=== PATIENT | female | born 1975 | race Caucasian/White ===

== ENCOUNTER 2019-12-24 08:58 | Outpatient (REF) | payer MEDICARE, MEDICAID, SELFPAY ==
[2019-12-24 10:27] LABS: Alanine Aminotransferase 17 U/L (0-31); Albumin Level 4.3 g/dL (3.5-5.0); Alkaline Phosphatase 65 U/L (39-117); Anion Gap 12 (12-20); Aspartate Amino Transferase 21 U/L (5-31); Bilirubin Total 0.5 mg/dL (0.0-1.0); Blood Urea Nitrogen 20 mg/dL (9-16); Carbon Dioxide 23 mmol/L (22-29); Chloride 108 mmol/L (96-108); Cholesterol 127 mg/dL; Estimated Glomerular Filt Rate > 60; Glucose Fasting 81 mg/dL (60-99); HDL Cholesterol 47 mg/dL; LDL Cholesterol Calculated 56 mg/dl; Sodium 139 mmol/L (135-145); Total Protein 7.5 g/dL (6.5-8.0); Triglycerides 120 mg/dL
[2019-12-24 10:46] LABS: Reflex LDLD? No
[2019-12-24 10:58] LABS: Creatinine Urine 165.03 mg/dL; Microalbum/Creatinine Ratio Ur 4.2 ug/mg cr
== END 2019-12-24 08:59 | disposition home or self-care (01) ==
LOC: HO.LAB 08:58
PROVIDERS: PCP Internal Medicine; Visit Provider Nurse Practitioner Gerontology
DX: E53.8 Deficiency of other specified B group vitamins (principal)
CPT/HCPCS: 80053; 80061; 82043

== ENCOUNTER 2020-01-18 09:59 | Outpatient (REF) | payer MEDICARE, MEDICAID, SELFPAY ==
[2020-01-18 11:01] LABS: Estimated Average Glucose 103 mg/dL; Hemoglobin A1c % 5.2 %
== END 2020-01-18 10:00 | disposition home or self-care (01) ==
LOC: HO.LAB 09:59
PROVIDERS: PCP Internal Medicine; Visit Provider Nurse Practitioner Gerontology
DX: E11.42 Type 2 diabetes mellitus with diabetic polyneuropathy (principal); K91.2 Postsurgical malabsorption, not elsewhere classified
CPT/HCPCS: 83036

== ENCOUNTER → 2020-01-20 13:48 | Outpatient (BNVA) | payer MEDICARE, MEDICAID, SELFPAY | PROVIDERS: PCP Internal Medicine; Visit Provider Anesthesiology | DX: M47.812 Spondylosis without myelopathy or radiculopathy, cervical region (principal); G89.4 Chronic pain syndrome; M54.81 Occipital neuralgia | CPT/HCPCS: 99202 ==

== ENCOUNTER 2020-02-02 09:28 | Outpatient (REF) | payer MEDICARE, MEDICAID, SELFPAY ==
--- NOTE | 2020-02-02 09:26 | MR_ITS ---
EXAMINATION: MR CERVICAL SPINE WITHOUT CONTRAST CLINICAL INFORMATION: Left upper extremity radiculopathy. Left leg pain. Neck pain. COMPARISON: X-ray cervical spine from 05/08/2019. TECHNIQUE: MRI of the cervical spine was obtained using routine sequences without contrast. FINDINGS: VERTEBRAL BODIES AND PARASPINAL SOFT TISSUES: There is a mild reversal of the normal cervical lordosis. The marrow signal is fairly homogeneous. Anterior endplate spurring is most notable at the C5-C6 level. No compression fractures or subluxations identified. No marrow or soft tissue edema is visible. The imaged lung apices are grossly clear. The paraspinal soft tissues are unremarkable. CERVICOMEDULLARY JUNCTION AND VISUALIZED POSTERIOR FOSSA: The craniovertebral junction and imaged portions of the brain parenchyma appear normal. No cord signal abnormality or syrinx is seen. SPINAL LEVELS: C2-C3: No disc pathology. No central canal stenosis or foraminal narrowing. C3-C4: Well-hydrated normal appearance of the disc without central canal stenosis or foraminal encroachment. C4-C5: Well-hydrated disc. No central canal stenosis or foraminal narrowing. C5-C6: Mild degenerative disc bulge and shallow left paracentral disc protrusion with mild endplate spurring. No central canal stenosis or foraminal encroachment. C6-C7: No disc pathology evident. C7-T1: Well-hydrated normal appearance of the disc. MR/MR cervical spine wo con IMPRESSION: Mild spondylitic changes at C5-C6 with a small left paracentral disc protrusion and endplate spurring. No central canal stenosis or foraminal narrowing. Mild reversal of the normal cervical lordosis.
== END 2020-02-02 09:29 | disposition home or self-care (01) ==
LOC: HO.MRI 09:28
PROVIDERS: Visit Provider Anesthesiology
DX: M47.812 Spondylosis without myelopathy or radiculopathy, cervical region (principal); M54.81 Occipital neuralgia
CPT/HCPCS: 72141

== ENCOUNTER 2020-02-03 15:56 | Emergency (ER) | payer MEDICARE, MEDICAID, SELFPAY ==
[2020-02-03 16:04] VITALS: BP 134/68; PULSE 77; RESP 16; TEMP 36.4; O2SAT 99; BMI 34.3
--- NOTE | 2020-02-03 17:21 | ECG_ITS ---
Test Reason : BACK PAIN Blood Pressure : / mmHG Vent. Rate : 060 BPM Atrial Rate : 060 BPM P-R Int : 158 ms QRS Dur : 088 ms QT Int : 410 ms P-R-T Axes : 037 024 026 degrees QTc Int : 410 ms Normal sinus rhythm Normal ECG When compared with ECG of 01-DEC-2019 11:17, No significant change was found Referred By: Domingo Rapp Electronically Signed By:SARAH MELISSA MD
--- NOTE | 2020-02-03 17:30 | XR_ITS ---
EXAMINATION: XR CHEST CLINICAL INFORMATION: Chest pain COMPARISON: 12/01/2019 TECHNIQUE: Frontal view of the chest was obtained. FINDINGS: Lungs are well-inflated and clear. Trachea is midline in position. No interstitial disease, consolidation or mass. No pleural effusion or pneumothorax. Cardiac silhouette and pulmonary vessels are normal in size. The mediastinum and terrie have normal contour. The visualized bones, and upper abdomen, are unremarkable. XR/XR chest 1V IMPRESSION: No acute cardiopulmonary abnormality.
[2020-02-03 17:36] VITALS: BP 110/71; PULSE 68; RESP 14; O2SAT 99
[2020-02-03 17:45] LABS: MANUAL DIFF FLAG NO
[2020-02-03 17:48] LABS: Appearance Urine CLEAR; Color Urine YELLOW; Glucose Urine UA NEG (NEG); Leukocyte Esterase Urine NEG (NEG); Nitrite Urine NEG (NEG); Specific Gravity - Urine 1.025 (1.005-1.025); Urine Blood NEG (NEG); Urine Ketones NEG (NEG); Urine Protein NEG (NEG-TRACE)
[2020-02-03 17:49] LABS: Basophils Absolute Auto 0.1 X10*3/uL (0.0-0.2); Basophils Percent Auto 0.5 % (0-2); Eosinophils Absolute Auto 0.2 X10*3/uL (0.0-0.4); Hematocrit 33.9 % (37-47); Hemoglobin 10.7 g/dl (12.0-16.0); Imm Gran Abs Auto 0.03 X10*3/uL (0.00-0.03); Imm Gran Pct Auto 0.3 % (0.0-0.4); Lymphocytes Absolute Auto 2.4 X10*3/uL (1.2-4.9); Lymphocytes Percent Auto 24.2 % (20-40); Mean Corpuscular HGB Conc 31.6 g/dl (31.0-35.0); Mean Corpuscular Hemoglobin 27.2 pg (27.0-33.0); Mean Corpuscular Volume 86.3 fL (80-98); Mean Platelet Volume 10.6 fL (9.4-12.3); Monocytes Absolute Auto 0.9 X10*3/uL (0.1-1.2); Neutrophils Absolute Auto 6.4 X10*3/uL (2.0-8.3); Platelet Count 290 X10*3/uL (160-400); Red Blood Count 3.93 X10*6/uL (4.20-5.50); Red Cell Distribution Width 13.2 % (11.0-16.0)
[2020-02-03 17:50] LABS: UPreg QC Valid YES; Urine Pregnancy NEGATIVE (NEGATIVE)
[2020-02-03 17:56] LABS: Bacteria Urine TRACE /LPF; RBC Urine 0 /HPF (0); Squamous Epithelial Cell Urine 1+ /LPF; WBC Urine 0 /HPF (0-4)
[2020-02-03] MEDS: Ketorolac Tromethamine 30 MG/ML VIAL IVPUSH (18:09)
[2020-02-03 18:19] LABS: Alanine Aminotransferase 14 U/L (0-31); Albumin Level 4.1 g/dL (3.5-5.0); Alkaline Phosphatase 57 U/L (39-117); Anion Gap 12 (12-20); Aspartate Amino Transferase 21 U/L (5-31); Bilirubin Total 0.2 mg/dL (0.0-1.0); Blood Urea Nitrogen 19 mg/dL (9-16); Calcium 8.7 mg/dL (8.4-10.2); Carbon Dioxide 20 mmol/L (22-29); Chloride 108 mmol/L (96-108); Creatinine Clr Calc Pharmacy 72.1; Estimated Glomerular Filt Rate > 60; Glucose Random 84 mg/dL (60-115); Potassium 4.2 mmol/l (3.3-5.1); Sodium 136 mmol/L (135-145); Total Protein 7.2 g/dL (6.5-8.0)
[2020-02-03 18:22] LABS: Troponin-I High Sensitivity < 3.5 ng/L (<3.5-17.0)
--- NOTE | 2020-02-03 19:19 | ED_ITS ---
HPI - Chest Pain General Chief Complaint: Back Pain/Injury Stated Complaint: side pain Time Seen by Provider: 02/03/20 17:19 Source: patient Mode of arrival: ambulatory Limitations: no limitations History of Present Illness HPI narrative: 44-year-old female with past medical history significant for diabetes, dyslipidemia, chronic pain syndrome come for B12 deficiency spondylosis of the cervical spine without myelopathy presents ambulatory id triage with complaint of left-sided anterior chest wall pain does been present for past couple days. States she does not recall any obvious injury but chest hurts to palpation and movement of the breast. States sometimes if she lifts of breast pain will go to the back of her chest. She denies any cough, URI symptoms, shortness of breath. No abdominal pain, nausea vomiting or diarrhea. No fever. No recent travel or sick contacts MD complaint: chest discomfort Onset (ago): day(s) Timing of current episode: episodic Prior episodes: Yes Onset: other (movement ) Pain location: left chest Pain radiation: back Severity: mild Quality: aching Relieving factors: other (Resting in no palpation) Exacerbating factors: nothing Context: recent illness Treatment prior to arrival: none Risk Factors Coronary artery disease risk factors: diabetes and hyperlipidemia Thoracic aortic dissection risk factors: none Related Data On Oral Contraceptives: No Home Medications Medication Instructions Recorded Confirmed calcium citrate 315 mg-vitamin D3 1 tab PO DAILY 01/01/20 01/01/20 5 mcg (200 unit) tablet cetirizine 10 mg capsule 10 mg PO DAILY 01/01/20 01/01/20 linaclotide 290 mcg capsule 290 mcg PO DAILY 01/01/20 01/01/20 simethicone 125 mg capsule 125 mg PO BID-QID PRN 01/01/20 01/01/20 topiramate 100 mg tablet 100 mg PO DAILY 01/01/20 01/01/20 Previous Rx's Medication Instructions Recorded acarbose 100 mg tablet 100 mg PO TID #90 tab 01/01/20 alcohol swabs 1 pad TOPICAL TID 30 Days #100 ea 01/01/20 blood sugar diagnostic #100 ea 01/01/20 lancets 28 gauge #100 ea 01/01/20 rosuvastatin 5 mg tablet 5 mg PO DAILY #30 tab 01/01/20 cyanocobalamin (vitamin B-12) 500 500 mcg SUBLINGUAL DAILY 30 Days 01/03/20 mcg sublingual tablet #30 tab tizanidine 4 mg tablet 4 mg PO TID PRN #90 tab 01/21/20 cyclobenzaprine 5 mg PO TID PRN #20 tab 02/03/20 naproxen 500 mg PO BID PRN #14 tab 02/03/20 Allergies Allergy/AdvReac Type Severity Reaction Status Date / Time lisinopril [LISINOPRIL] Allergy Severe ANAPYHLAXIS, Verified 02/03/20 18:09 swelling metformin [METFORMIN] Allergy Severe ANAPHYLAXIS, Verified 02/03/20 18:09 diarrhea sumatriptan [From IMITREX] Allergy Severe ANAPHYLAXIS, Verified 02/03/20 18:09 sedation Review of Systems Review of Systems: Constitutional: No Weight loss, No Fever, No Chills, No Night Sweats, No Fatigue, No Malaise ENT/Mouth: No Hearing loss, No Ear Pain, No Nasal Congestion, No Sinus Pain, No Hoarseness, No sore throat, No Rhinorrhea, No Swallowing Difficulty Eyes: No Eye Pain, No Swelling, No Redness, No Foreign Body, No Discharge, No Vision Changes Cardiovascular: + Chest Pain, No SOB, No Dyspnea on Exertion, No Orthopnea, No Edema, No Palpitations Respiratory: No Cough, No Sputum, No Wheezing, No Smoke Exposure, No Dyspnea Gastrointestinal: No Nausea, No Vomiting, No Diarrhea, No Constipation, No abdominal Pain, No Hematochezia, No Melena Genitourinary: no irregular bleeding, No Dysuria, No Urinary Frequency, No Hematuria, No Urinary Incontinence, No Urgency, No Flank Pain, No Urinary Flow Changes, No Hesitancy Musculoskeletal: No joint pain, No Myalgias, No Joint Swelling Skin: No Skin Lesions, No rash Neuro: No Weakness, No Numbness, No Paresthesias, No Loss of Consciousness, No Dizziness, No Headache Psych: No Anxiety/Panic Heme/Lymph: No Bruising, No Bleeding,No Lymphadenopathy Endocrine: No Polyuria, No Polydipsia, No Temperature Intolerance Yes all other systems are reviewed and are negative [facility] Past Medical History Attestation statement: The following information was validated with the patient. 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 Upper abdominal pain Surgical History History of esophagogastroduodenoscopy (EGD) History of umbilical hernia Hx of bilateral breast reduction surgery Hx of section Hx of cholecystectomy Hx of lithotripsy Family History Family History Father Liver cancer Hypertension Diabetes mellitus Mother Hypercholesterolemia Breast cancer Asthma Social History Social History (Updated 01/01/20 @ 13:33 by ANNE MARIE Chavarria) Household Members: None Smoking Status: Never smoker Physical Exam Vital Signs: Vital Signs: Last Vital Signs Temp 97.5 F 02/03/20 16:04 Pulse 68 02/03/20 17:36 Resp 14 02/03/20 17:36 BP 110/71 02/03/20 17:36 Pulse Ox 99 02/03/20 17:36 Body Mass Index 34.3 Reviewed Const: General: cooperative and healthy appearing; No acute distress or intoxicated appearing Nutritional Appearance: average body habitus Orientation/consciousness: patient oriented x3 HENMT: Head: Yes normal to inspection Ears: hearing grossly normal bilaterally Eyes: General: appearance normal, both eyes and all related structures Visual Penny: normal visual penny by confrontation Neck: Neck: Yes normal visual inspection and No tender Thyroid: Thyroid normal Chest: Chest palpation & inspection: normal inspection of the chest Chest/axillae images: 1. RN Fe present for four h agent No palpable mass Palpable tender palpation just inferior to the breast and this lateral to the breast angle at the sternum. No rash noted. Resp: Effort & Inspection: normal respiratory effort Cardio: Jugular venous distension: no JVD GI: Inspection: Yes normal to inspection Percussion: Yes normal to percussion Auscultation: normal bowel sounds : General: Yes no CVA tenderness Back/Spine/Pelvis: Back: no CVA tenderness Skin: General skin exam: no rashes or lesions noted Neuro: General: patient oriented x3 Extrem: General: Yes normal to inspection Course Course Course Narrative: Heart score 1, perc negative. AP consistent with musculoskeletal reproducible anterior chest wall pain. Workup essentially unremarkable. Will discharge home with short course muscle relaxants and NSAIDs. Patient otherwise well nontoxic appearing. Has remained stable during the course of the ED. MDM - Chest Pain Lab Data Result diagrams: 02/03/20 17:39 02/03/20 17:39 Labs: Lab Results 02/03/20 02/03/20 02/03/20 Range/Units 17:39 17:39 17:39 WBC 10.0 (4.8-10.8) X10*3/uL RBC 3.93 L (4.20-5.50) X10*6/uL Hgb 10.7 L (12.0-16.0) g/dl Hct 33.9 L (37-47) % MCV 86.3 (80-98) fL MCH 27.2 (27.0-33.0) pg MCHC 31.6 (31.0-35.0) g/dl RDW 13.2 (11.0-16.0) % Plt Count 290 (160-400) X10*3/uL MPV 10.6 (9.4-12.3) fL Immature Gran % (Auto) 0.3 (0.0-0.4) % Neut % (Auto) 64.0 (45-73) % Lymph % (Auto) 24.2 (20-40) % [place] % (Auto) 9.0 (2-11) % Eos % (Auto) 2.0 (0-4) % Baso % (Auto) 0.5 (0-2) % Lymph # (Auto) 2.4 (1.2-4.9) X10*3/uL [place] # (Auto) 0.9 (0.1-1.2) X10*3/uL Eos # (Auto) 0.2 (0.0-0.4) X10*3/uL Baso # (Auto) 0.1 (0.0-0.2) X10*3/uL Abs Immat Gran (auto) 0.03 (0.00-0.03) X10*3/uL Absolute Neuts (auto) 6.4 (2.0-8.3) X10*3/uL Absolute Nucleated RBC 0.000 (0.0-0.012) X10*3/uL Nucleated RBC % (auto) 0.0 (0.0-0.2) /100WBC Sodium 136 (135-145) mmol/L Potassium 4.2 (3.3-5.1) mmol/l Chloride 108 (96-108) mmol/L Carbon Dioxide 20 L (22-29) mmol/L Anion Gap 12 (12-20) BUN 19 H (9-16) mg/dL Creatinine 0.94 (0.5-1.4) mg/dL Estim Creat Clear Calc 72.1 Estimated GFR > 60 Random Glucose 84 (60-115) mg/dL Calcium 8.7 (8.4-10.2) mg/dL Total Bilirubin 0.2 (0.0-1.0) mg/dL AST 21 (5-31) U/L ALT 14 (0-31) U/L Alkaline Phosphatase 57 (39-117) U/L Troponin I High Sens < 3.5 (<3.5-17.0) ng/L Total Protein 7.2 (6.5-8.0) g/dL Albumin 4.1 (3.5-5.0) g/dL Urine Color Urine Appearance Urine pH (5.0-8.0) Ur Specific [place] (1.005-1.025) Urine Protein (NEG-TRACE) MG/DL Urine Glucose (UA) (NEG) MG/DL Urine Ketones (NEG) MG/DL Urine Blood (NEG) Urine Nitrite (NEG) Ur Leukocyte Esterase (NEG) Urine RBC (0) /HPF Urine WBC (0-4) /HPF Ur Squamous Epith Cells /LPF Urine Bacteria /LPF Urine Test (NEGATIVE) 02/03/20 Range/Units 17:39 WBC (4.8-10.8) X10*3/uL RBC (4.20-5.50) X10*6/uL Hgb (12.0-16.0) g/dl Hct (37-47) % MCV (80-98) fL MCH (27.0-33.0) pg MCHC (31.0-35.0) g/dl RDW (11.0-16.0) % Plt Count (160-400) X10*3/uL MPV (9.4-12.3) fL Immature Gran % (Auto) (0.0-0.4) % Neut % (Auto) (45-73) % Lymph % (Auto) (20-40) % [place] % (Auto) (2-11) % Eos % (Auto) (0-4) % Baso % (Auto) (0-2) % Lymph # (Auto) (1.2-4.9) X10*3/uL [place] # (Auto) (0.1-1.2) X10*3/uL Eos # (Auto) (0.0-0.4) X10*3/uL Baso # (Auto) (0.0-0.2) X10*3/uL Abs Immat Gran (auto) (0.00-0.03) X10*3/uL Absolute Neuts (auto) (2.0-8.3) X10*3/uL Absolute Nucleated RBC (0.0-0.012) X10*3/uL Nucleated RBC % (auto) (0.0-0.2) /100WBC Sodium (135-145) mmol/L Potassium (3.3-5.1) mmol/l Chloride (96-108) mmol/L Carbon Dioxide (22-29) mmol/L Anion Gap (12-20) BUN (9-16) mg/dL Creatinine (0.5-1.4) mg/dL Estim Creat Clear Calc Estimated GFR Random Glucose (60-115) mg/dL Calcium (8.4-10.2) mg/dL Total Bilirubin (0.0-1.0) mg/dL AST (5-31) U/L ALT (0-31) U/L Alkaline Phosphatase (39-117) U/L Troponin I High Sens (<3.5-17.0) ng/L Total Protein (6.5-8.0) g/dL Albumin (3.5-5.0) g/dL Urine Color YELLOW Urine Appearance CLEAR Urine pH 7.0 (5.0-8.0) Ur Specific [place] 1.025 (1.005-1.025) Urine Protein NEG (NEG-TRACE) MG/DL Urine Glucose (UA) NEG (NEG) MG/DL Urine Ketones NEG (NEG) MG/DL Urine Blood NEG (NEG) Urine Nitrite NEG (NEG) Ur Leukocyte Esterase NEG (NEG) Urine RBC 0 (0) /HPF Urine WBC 0 (0-4) /HPF Ur Squamous Epith Cells 1+ /LPF Urine Bacteria TRACE /LPF Urine Test NEGATIVE (NEGATIVE) Scores Heart Score History: -0- slightly suspicious ECG: -0- normal Age: -0- < or = 45 Risk factory: -1- 1 or 2 risk factors Troponin: -0- < or = normal limit Score: 1 Risk: 1.7% Discharge Plan Discharge Clinical Impression: Acute costochondritis Patient Disposition: Home, Self-Care Instructions: Costochondritis (ED) Prescriptions: New cyclobenzaprine 10 mg tablet 5 mg PO TID PRN (Reason: muscle spasm) Qty: 20 RF: 0 naproxen 500 mg tablet 500 mg PO BID PRN (Reason: pain) Qty: 14 RF: 0 No Action cyanocobalamin (vitamin B-12) 500 mcg tablet, sublingual 500 mcg sublingual DAILY 30 Days Qty: 30 RF: 11 tizanidine 4 mg tablet 4 mg PO TID PRN (Reason: muscle spasticity) Qty: 90 RF: 3 topiramate [Topamax] 100 mg tablet 100 mg PO DAILY RF: 0 Linzess 290 mcg capsule 290 mcg PO DAILY RF: 0 simethicone [Gas Relief (simethicone)] 125 mg capsule 125 mg PO BID-QID PRNRF: 0 calcium citrate-vitamin D3 [Calcium Citrate + D] 315 mg-5 mcg (200 unit) tablet 1 tab PO DAILY RF: 0 Zyrtec 10 mg capsule 10 mg PO DAILY RF: 0 acarbose 100 mg tablet 100 mg PO TID Qty: 90 RF: 12 (DME) FreeStyle Lite Strips Strip See Rx Instructions .ROUTE .MEDSUPPLY Qty: 100 RF: 12 rosuvastatin [Crestor] 5 mg tablet 5 mg PO DAILY Qty: 30 RF: 12 (DME) lancets [FreeStyle Lancets] 28 gauge misc See Rx Instructions .ROUTE .MEDSUPPLY Qty: 100 RF: 12 alcohol swabs [Alcohol Pads] Pads, Medicated 1 pad topical TID 30 Days Qty: 100 RF: 12 Referrals: Juve Crawford MD [Primary Care Provider] - 1 week Interventions: ED Discharge Assessment Last Done: 02/03/20 19:31 Discharge Date/Time: 02/03/20 19:33
== END 2020-02-03 19:33 | disposition home or self-care (01) ==
PROVIDERS: Nurse Practitioner Primary Care; Emergency Provider Emergency Medicine; PCP Internal Medicine
DX: M94.0 Chondrocostal junction syndrome [Tietze] (principal); M54.5 Low back pain; M54.2 Cervicalgia; Z79.899 Other long term (current) drug therapy
CPT/HCPCS: 36415; 71045; 80053; 81001; 81025; 84484; 85025; 93005; 96374; 99283; 99284; J1885

== ENCOUNTER → 2020-02-29 09:59 | Outpatient (BNVA) | payer MEDICARE, MEDICAID, SELFPAY | PROVIDERS: PCP Internal Medicine; Referring Provider Internal Medicine; Visit Provider Nurse Practitioner | DX: Z13.89 Encounter for screening for other disorder (principal) | CPT/HCPCS: Q3014 ==

== ENCOUNTER 2020-03-15 05:50 | Outpatient (REF) | payer MEDICARE, MEDICAID, SELFPAY | END 2020-03-15 05:51 | disposition home or self-care (01) | LOC: HO.RADIR 05:50 | PROVIDERS: Visit Provider Anesthesiology | DX: M47.812 Spondylosis without myelopathy or radiculopathy, cervical region (principal); G89.4 Chronic pain syndrome; M54.81 Occipital neuralgia | CPT/HCPCS: Q3014 ==

== ENCOUNTER 2020-03-22 12:10 | Outpatient (REF) | payer MEDICARE, MEDICAID, SELFPAY | END 2020-03-22 12:11 | disposition home or self-care (01) | LOC: HO.MAMMO 12:10 | PROVIDERS: Visit Provider Internal Medicine | DX: Z13.89 Encounter for screening for other disorder (principal) ==

== ENCOUNTER 2020-03-28 07:54 | Outpatient (REF) | payer MEDICARE, MEDICAID, SELFPAY ==
--- NOTE | 2020-03-28 07:58 | MM_ITS ---
EXAMINATION: MM SCREENING DIGITAL BREAST TOMOSYNTHESIS, BILATERAL CLINICAL INFORMATION: Screening. Asymptomatic. The lifetime risk of breast cancer based on the Tyrer-Cuzick Model is 13%. COMPARISON: Mammography: 01/13/2019, 12/26/2017, 08/24/2016 TECHNIQUE: Digital breast tomosynthesis is performed in both the craniocaudal and mediolateral oblique views along with computer-aided detection (CAD). Synthesized 2D images are generated from the tomosynthesis. FINDINGS: There are scattered areas of fibroglandular density (ACR BI-RADS breast composition Category b). There are no significant masses, abnormal calcifications, or other abnormalities. Parenchymal pattern is similar to prior studies. The axilla and skin contours are unremarkable. MM/MM tomosynthesis screening BI IMPRESSION: There are no significant changes from prior study. ASSESSMENT: BI-RADS 1: Negative RECOMMENDATION: Routine annual mammography screening. This patient's information was entered into a reminder system with a target due date for their next mammogram.
== END 2020-03-28 07:55 | disposition home or self-care (01) ==
LOC: HO.MAMMO 07:54
PROVIDERS: PCP Internal Medicine; Visit Provider Internal Medicine
DX: Z12.31 Encounter for screening mammogram for malignant neoplasm of breast (principal)
CPT/HCPCS: 77063; 77067

== ENCOUNTER 2020-03-29 10:00 | Outpatient (RCR) | payer MEDICARE, MEDICAID, SELFPAY ==
--- NOTE | 2020-01-29 15:20 | MHC.PT.EP ---
[facility] [place] Office [place] [facility] [place] Office [address] Nuria Dueñas [address] [phone] F: [phone] F: [phone] F: [phone] F: [phone] Physical Therapy Plan of Care Date of Evaluation: 01/28/20 Date of Surgery: Diagnosis: cervicalgia Assessment: The patient has reduced ROM in left shoulder and cervical spine. Pt has radiculopathy down the left arm. She is showing signs consistent with a posterolateral derangement in her cervical spine. Pt will need posture education and will need orientation to midline to avoid agg factors. Frequency and Duration: The patient will be seen 2x/week x 4 weeks. Short Term Goals: 1. Pt to be able to return to normal PLOF without limiting pain. 2. Pt to be able to return to overhead reaching without pain or limitation. 3. Pt to be able to manage her pain with selected exercise and stretching regime. Chcf Goals: 4 weeks - The patient to demonstrate proper lifting mechanics for household chore activities to show improved functional mobility. 4 weeks - The patient to report no leg or hip pain in order to show centralization of pain and reduction of lumbar derangement 4 weeks - Pt to be able to demonstrate self management of lumbar pain by demonstration of HEP. Treatment Plan: Modalities to reduce pain, spasms and effusion. Manual therapy to restore motion and function. Therapeutic exercise to improve strength and flexibility. Neuromuscular re-education for posture and balance. Therapeutic activities to return to functional activities of daily living. Please sign and return to therapist. Thank you for your referral.
--- NOTE | 2020-07-12 14:59 | MHC.PT.DC ---
[facility] [place] [facility] [place] [facility] [place] [facility] [address] Nuria Dueñas [address] [phone] F: [phone] F: [phone] F: [phone] F: [phone] Physical Therapy Discharge Report Diagnosis: cervicalgia Date of Surgery: Date of Evaluation: 01/28/20 Date of Discharge: 05/19/20 Treatments to Date: 11 Cancellations to Date: 0 No Shows to Date: 0 Discharge Status: Independent with HEP Patient Elected to Stop Discharge Summary: Last session on 03/10/2020. She did not return after this scheduled appointment. The patient's pain was generally unchanged from PT. She had an MRI recently and stopped coming to PT after this MRI. Pt education given on the importance of correct posture and we discussed the role body mechanics plays on her pain levels. Also discussed stopping any activity that increases L UE sx. Electronically signed by: Fannie Ivy PT DPT Please sign and return to therapist. Thank you for your referral.
== END 2020-05-19 09:07 | disposition other institution (70) ==
LOC: HO.PT 10:00
PROVIDERS: Visit Provider Anesthesiology
DX: M54.81 Occipital neuralgia (principal); M47.812 Spondylosis without myelopathy or radiculopathy, cervical region; G89.4 Chronic pain syndrome
CPT/HCPCS: 97110; 97112; 97140; 97162

== ENCOUNTER 2020-04-05 12:22 | Emergency (ER) | payer MEDICARE, MEDICAID, SELFPAY ==
[2020-04-05 12:40] VITALS: BP 135/76; PULSE 70; RESP 20; TEMP 36.9; O2SAT 100; BMI 33.5
--- NOTE | 2020-04-05 12:40 | ED.GENADULT ---
HPI - General Adult General Chief complaint: Chest Pain <Niru Blanca NP - Last Filed: 04/05/20 12:43> Stated complaint: chest pain <Niru Blanca NP - Last Filed: 04/05/20 12:43> Time Seen by Provider: 04/05/20 12:40 <Niru Blanca NP - Last Filed: 04/05/20 12:43> Source: patient <HENRY Palmer - Last Filed: 04/05/20 16:50> Mode of arrival: ambulatory <HENRY Palmer - Last Filed: 04/05/20 16:50> History of Present Illness HPI narrative: 44-year-old female with a past medical history of anxiety, chronic pain, constipation, dyslipidemia, gastroparesis, GERD, hepatitis, , cholecystectomy, diabetes, presenting to the ED complaining of left-sided chest pain since this morning. Reports pain is constant described as stabbing/sharp, under left breast, worse with movement and deep breathing. Denies shortness of breath, fever, chills, cough, abdominal pain, nausea/vomiting, LE edema, history blood clots <HENRY Palmer - Last Filed: 04/05/20 16:50> Onset (ago): day(s) <HENRY Palmer - Last Filed: 04/05/20 16:50> Related Data Home medications: Home Medications Medication Instructions Recorded Confirmed calcium citrate 315 mg-vitamin D3 1 tab PO DAILY 01/01/20 02/11/20 5 mcg (200 unit) tablet linaclotide 290 mcg capsule 290 mcg PO DAILY 01/01/20 02/29/20 topiramate 100 mg tablet 100 mg PO DAILY 01/01/20 02/11/20 alprazolam 1 mg tablet 1 mg PO TID PRN 02/10/20 02/11/20 amitriptyline 25 mg tablet [id number] mg PO BEDTIME PRN 02/10/20 02/11/20 fluticasone propionate 50 1 spray INTRANASAL DAILY 02/10/20 02/11/20 mcg/actuation nasal spray,suspension ibuprofen 800 mg tablet 800 mg PO TID PRN 02/10/20 02/11/20 mometasone 0.1 % topical ointment 1 applic TOPICAL DAILY 02/10/20 02/11/20 topiramate 100 mg tablet 100 mg PO BEDTIME 02/10/20 02/11/20 Previous Rx's Medication Instructions Recorded acarbose 100 mg tablet 100 mg PO TID #90 tab 01/01/20 alcohol swabs 1 pad TOPICAL TID 30 Days #100 ea 01/01/20 blood sugar diagnostic #100 ea 01/01/20 lancets 28 gauge #100 ea 01/01/20 rosuvastatin 5 mg tablet 5 mg PO DAILY #30 tab 01/01/20 cyanocobalamin (vitamin B-12) 500 500 mcg SUBLINGUAL DAILY 30 Days 01/03/20 mcg sublingual tablet #30 tab tizanidine 4 mg tablet 4 mg PO TID PRN #90 tab 01/21/20 cyclobenzaprine 5 mg PO TID PRN #20 tab 02/03/20 naproxen 500 mg PO BID PRN #14 tab 02/03/20 cyclobenzaprine 10 mg tablet 10 mg PO BEDTIME 30 Days #30 tab 02/10/20 prednisone 10 mg tablet 10 mg PO DAILY 9 Days #18 tab 02/10/20 blood-glucose meter #1 ea 02/25/20 linaclotide 290 mcg capsule 290 mcg PO DAILY 30 Days #30 cap 02/29/20 metoclopramide HCl 10 mg tablet 10 mg PO QIDACHS #120 tab 02/29/20 cetirizine 10 mg tablet 10 mg PO DAILY #30 tab 03/04/20 simethicone 125 mg chewable tablet 125 mg PO QID #120 ea 03/07/20 ibuprofen 800 mg tablet 800 mg PO TID PRN #90 tab 03/22/20 acetaminophen [Tylenol Extra 500 mg PO Q6H PRN #20 tab 04/05/20 Strength] lidocaine [Lidoderm] 1 patch TOPICAL DAILY PRN #30 ea 04/05/20 MDD remove after 12 hours naproxen 500 mg PO BID PRN 10 Days #20 tab 04/05/20 <Niru Blanca [employer]HW[employer] TECHNICIAN - Last Filed: 04/05/20 12:43> Allergies/adverse reactions: Allergies Allergy/AdvReac Type Severity Reaction Status Date / Time lisinopril [LISINOPRIL] Allergy Severe ANAPYHLAXIS, Verified 02/29/20 10:00 swelling metformin [METFORMIN] Allergy Severe ANAPHYLAXIS, Verified 02/29/20 10:00 diarrhea sumatriptan [From IMITREX] Allergy Severe ANAPHYLAXIS, Verified 02/29/20 10:00 sedation <Niru Blanca NP - Last Filed: 04/05/20 12:43> Review of Systems Review of Systems: Constitutional: No Weight loss, No Fever, No Chills Cardiovascular: + Chest Pain, No SOB, No Dyspnea on Exertion, No Orthopnea, No Edema Respiratory: No Cough, No Sputum, No Wheezing, No Dyspnea Gastrointestinal: No Nausea, No Vomiting, No Diarrhea, No Constipation, No Abdominal pain Genitourinary: No irregular bleeding, No Dysuria, No Hematuria Musculoskeletal: No joint pain, No Myalgias, No Joint Swelling Skin: No Skin Lesions, No rash Neuro: No Weakness, No Numbness, No Paresthesias Psych: No Anxiety/Panic, No Depression, No SI/HI/AH/VH, No Social Issues <HENRY Palmer - Last Filed: 04/05/20 16:50> Yes all other systems are reviewed and are negative <HENRY Palmer - Last Filed: 04/05/20 16:50> FOR[facility]LY [facility], [facility] Past Medical History Attestation statement: The following information was validated with the patient. 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 Upper abdominal pain <Niru Blanca NP - Last Filed: 04/05/20 12:43> Surgical History: Surgical History History of esophagogastroduodenoscopy (EGD) History of umbilical hernia Hx of bilateral breast reduction surgery Hx of section Hx of cholecystectomy Hx of lithotripsy <Niru Blanca NP - Last Filed: 04/05/20 12:43> Family History Family History: Family History Father Liver cancer Hypertension Diabetes mellitus Mother Hypercholesterolemia Breast cancer Asthma <Niru Blanca NP - Last Filed: 04/05/20 12:43> Social History Social History: Social History (Updated 02/29/20 @ 10:01 by Tiffany Weber [facility]) Household Members: None Alcohol intake: current Alcohol intake frequency: does not drink Smoking Status: Never smoker Advance Directives: No Advance Directives Information Provided: No <Niru Blanca NP - Last Filed: 04/05/20 12:43> Physical Exam Vital Signs: Vital Signs: Last Vital Signs Temp 98.5 F 04/05/20 12:40 Pulse 70 04/05/20 12:40 Resp 04/05/20 12:40 BP 135/76 04/05/20 12:40 Pulse Ox 100 04/05/20 12:40 Body Mass Index 33.5 <Niru Blanca NP - Last Filed: 04/05/20 12:43> Vital Signs: Last Vital Signs Temp 98.5 F 04/05/20 12:40 Pulse 70 04/05/20 12:40 Resp 04/05/20 12:40 BP 135/76 04/05/20 12:40 Pulse Ox 100 04/05/20 12:40 Body Mass Index 33.5 <HENRY Palmer - Last Filed: 04/05/20 16:50> Const: General: cooperative and healthy appearing <HENRY Palmer - Last Filed: 04/05/20 16:50> Orientation/consciousness: patient oriented x3 <HENRY Palmer - Last Filed: 04/05/20 16:50> Limitations: no limitations <HENRY Palmer - Last Filed: 04/05/20 16:50> HENMT: Head: Yes normal to inspection <HENRY Palmer - Last Filed: 04/05/20 16:50> Ears: hearing grossly normal bilaterally <HENRY Palmer - Last Filed: 04/05/20 16:50> General nose exam: Normal external nose present <HENRY Palmer Last Filed: 04/05/20 16:50> Face and sinus: Yes normal facial exam <Isabel Barrow [facility] Last Filed: 04/05/20 16:50> Eyes: General: appearance normal, both eyes and all related structures <Isabel Barrow [facility] Last Filed: 04/05/20 16:50> EOM: EOMs intact bilaterally <Isabel Barrow [facility] Last Filed: 04/05/20 16:50> Neck: Neck: Yes normal visual inspection <Isabel Barrow [facility] Last Filed: 04/05/20 16:50> Chest: Other: + tenderness to palpation to left side anterior/lateral chest wall and sternum. Left breast without skin changes/mass or tenderness. No nipple discharge <Isabel Barrow [facility] Last Filed: 04/05/20 16:50> Chest palpation & inspection: normal inspection of the chest and no crepitus <Isabel Barrow [facility] Last Filed: 04/05/20 16:50> Resp: Effort & Inspection: normal respiratory effort <Isabel Barrow [facility] Last Filed: 04/05/20 16:50> Auscultation: clear to auscultation bilaterally, no rales, no rhonchi and no wheezes <Isabel Barrow [facility] Last Filed: 04/05/20 16:50> Cardio: Rate: regular rate <Isabel Barrow [facility] Last Filed: 04/05/20 16:50> Heart sounds: S1 normal heart sound present and S2 normal heart sound present <Isabel Barrow [facility] Last Filed: 04/05/20 16:50> GI: Inspection: Yes normal to inspection <Isabel Barrow [facility] Last Filed: 04/05/20 16:50> Palpation (GI): Soft to palpation, nontender, no guarding and not rigid <Isabel Barrow [facility] Last Filed: 04/05/20 16:50> Skin: Rashes: no rashes <Isabel Barrow [facility] Last Filed: 04/05/20 16:50> Wounds: no wounds <Isabel Barrow [facility] Last Filed: 04/05/20 16:50> Neuro: General: patient oriented x3 <HENRY Palmer - Last Filed: 04/05/20 16:50> Gait exam (Neuro): Normal gait present <HENRY Palmer - Last Filed: 04/05/20 16:50> Extrem: Other: No LE edema or calf tenderness <HENRY Palmer - Last Filed: 04/05/20 16:50> General: Yes normal to inspection <HENRY Palmer - Last Filed: 04/05/20 16:50> Course Course Course Narrative: 1240-This is a rapid medical exam. 44 yo female with past medical history of NIDDM, HLD, GERD, migraines, gastroporesis here with left sided chest pain radiates to the back, worsened with deep breathing since this morning. No cough, fevers, chills, leg pain or swelling. Will check EKG, CXR, labs. Deferred additional HPI, ROS, PE until seen by primary provider. <Niru Blanca NP - Last Filed: 04/05/20 12:43> - 1633-- no leukocytosis, H&H at baseline, D-dimer is negative, labs are otherwise unremarkable including troponin. CXR unremarkable Results discussed with patient including worrisome signs and symptoms and strict return precautions. Patient verbalized understanding and feels safe for discharge home <HENRY Palmer - Last Filed: 04/05/20 16:50> Medical Decision Making MDM Narrative Medical decision making narrative: 44-year-old female with a past medical history of anxiety, chronic pain, constipation, dyslipidemia, gastroparesis, GERD, hepatitis, , cholecystectomy, diabetes, presenting to the ED complaining of left-sided chest pain since this morning. On exam VSS, NAD/well-appearing, chest pain reproducible, lungs CTA. Concern for costochondritis vs PE vs PNA vs ACS Plan: EKG, Labs, CXR, Re-evaluate <HENRY Palmer - Last Filed: 04/05/20 16:50> Lab Data Result diagrams: : 04/05/20 15:38 04/05/20 15:38 <Niru Blanca NP - Last Filed: 04/05/20 12:43> Labs: Lab Results 01/19/21 01/19/21 01/19/21 Range/Units 15:38 15:38 15:38 WBC 9.1 (4.8-10.8) X10*3/uL RBC 4.01 L (4.20-5.50) X10*6/uL Hgb 10.9 L (12.0-16.0) g/dl Hct 34.5 L (37-47) % MCV 86.0 (80-98) fL MCH 27.2 (27.0-33.0) pg MCHC 31.6 (31.0-35.0) g/dl RDW 13.3 (11.0-16.0) % Plt Count 308 (160-400) X10*3/uL MPV 10.5 (9.4-12.3) fL Immature Gran % (Auto) 0.3 (0.0-0.4) % Neut % (Auto) 59.1 (45-73) % Lymph % (Auto) 30.1 (20-40) % [place] % (Auto) 7.9 (2-11) % Eos % (Auto) 1.8 (0-4) % Baso % (Auto) 0.8 (0-2) % Lymph # (Auto) 2.8 (1.2-4.9) X10*3/uL [place] # (Auto) 0.7 (0.1-1.2) X10*3/uL Eos # (Auto) 0.2 (0.0-0.4) X10*3/uL Baso # (Auto) 0.1 (0.0-0.2) X10*3/uL Abs Immat Gran (auto) 0.03 (0.00-0.03) X10*3/uL Absolute Neuts (auto) 5.4 (2.0-8.3) X10*3/uL Absolute Nucleated RBC 0.000 (0.0-0.012) X10*3/uL Nucleated RBC % (auto) 0.0 (0.0-0.2) /100WBC D-Dimer < 200 NG/ML Hold Blue Top SEE NOTE Sodium 138 (135-145) mmol/L Potassium 4.3 (3.3-5.1) mmol/l Chloride 106 (96-108) mmol/L Carbon Dioxide 23 (22-29) mmol/L Anion Gap 13 (12-20) BUN 17 H (9-16) mg/dL Creatinine 0.84 (0.5-1.4) mg/dL Estim Creat Clear Calc 79.7 Estimated GFR > 60 Random Glucose 82 (60-115) mg/dL Calcium 9.3 D (8.4-10.2) mg/dL Total Bilirubin 0.2 (0.0-1.0) mg/dL Direct Bilirubin < 0.2 (0.0-0.5) mg/dL AST 22 (5-31) U/L ALT 14 (0-31) U/L Alkaline Phosphatase 62 (39-117) U/L Troponin I High Sens (<3.5-17.0) ng/L Total Protein 7.5 (6.5-8.0) g/dL Albumin 4.4 (3.5-5.0) g/dL Lipase 63 (8-78) U/L 04/05/20 Range/Units 15:38 WBC (4.8-10.8) X10*3/uL RBC (4.20-5.50) X10*6/uL Hgb (12.0-16.0) g/dl Hct (37-47) % MCV (80-98) fL MCH (27.0-33.0) pg MCHC (31.0-35.0) g/dl RDW (11.0-16.0) % Plt Count (160-400) X10*3/uL MPV (9.4-12.3) fL Immature Gran % (Auto) (0.0-0.4) % Neut % (Auto) (45-73) % Lymph % (Auto) (20-40) % [place] % (Auto) (2-11) % Eos % (Auto) (0-4) % Baso % (Auto) (0-2) % Lymph # (Auto) (1.2-4.9) X10*3/uL [place] # (Auto) (0.1-1.2) X10*3/uL Eos # (Auto) (0.0-0.4) X10*3/uL Baso # (Auto) (0.0-0.2) X10*3/uL Abs Immat Gran (auto) (0.00-0.03) X10*3/uL Absolute Neuts (auto) (2.0-8.3) X10*3/uL Absolute Nucleated RBC (0.0-0.012) X10*3/uL Nucleated RBC % (auto) (0.0-0.2) /100WBC D-Dimer NG/ML Hold Blue Top Sodium (135-145) mmol/L Potassium (3.3-5.1) mmol/l Chloride (96-108) mmol/L Carbon Dioxide (22-29) mmol/L Anion Gap (12-20) BUN (9-16) mg/dL Creatinine (0.5-1.4) mg/dL Estim Creat Clear Calc Estimated GFR Random Glucose (60-115) mg/dL Calcium (8.4-10.2) mg/dL Total Bilirubin (0.0-1.0) mg/dL Direct Bilirubin (0.0-0.5) mg/dL AST (5-31) U/L ALT (0-31) U/L Alkaline Phosphatase (39-117) U/L Troponin I High Sens < 3.5 (<3.5-17.0) ng/L Total Protein (6.5-8.0) g/dL Albumin (3.5-5.0) g/dL Lipase (8-78) U/L <Niru Blanca NP - Last Filed: 04/05/20 12:43> Lab Results 04/05/20 04/05/20 04/05/20 Range/Units 15:38 15:38 15:38 WBC 9.1 (4.8-10.8) X10*3/uL RBC 4.01 L (4.20-5.50) X10*6/uL Hgb 10.9 L (12.0-16.0) g/dl Hct 34.5 L (37-47) % MCV 86.0 (80-98) fL MCH 27.2 (27.0-33.0) pg MCHC 31.6 (31.0-35.0) g/dl RDW 13.3 (11.0-16.0) % Plt Count 308 (160-400) X10*3/uL MPV 10.5 (9.4-12.3) fL Immature Gran % (Auto) 0.3 (0.0-0.4) % Neut % (Auto) 59.1 (45-73) % Lymph % (Auto) 30.1 (20-40) % [place] % (Auto) 7.9 (2-11) % Eos % (Auto) 1.8 (0-4) % Baso % (Auto) 0.8 (0-2) % Lymph # (Auto) 2.8 (1.2-4.9) X10*3/uL [place] # (Auto) 0.7 (0.1-1.2) X10*3/uL Eos # (Auto) 0.2 (0.0-0.4) X10*3/uL Baso # (Auto) 0.1 (0.0-0.2) X10*3/uL Abs Immat Gran (auto) 0.03 (0.00-0.03) X10*3/uL Absolute Neuts (auto) 5.4 (2.0-8.3) X10*3/uL Absolute Nucleated RBC 0.000 (0.0-0.012) X10*3/uL Nucleated RBC % (auto) 0.0 (0.0-0.2) /100WBC D-Dimer < 200 NG/ML Hold Blue Top SEE NOTE Sodium 138 (135-145) mmol/L Potassium 4.3 (3.3-5.1) mmol/l Chloride 106 (96-108) mmol/L Carbon Dioxide 23 (22-29) mmol/L Anion Gap 13 (12-20) BUN 17 H (9-16) mg/dL Creatinine 0.84 (0.5-1.4) mg/dL Estim Creat Clear Calc 79.7 Estimated GFR > 60 Random Glucose 82 (60-115) mg/dL Calcium 9.3 D (8.4-10.2) mg/dL Total Bilirubin 0.2 (0.0-1.0) mg/dL Direct Bilirubin < 0.2 (0.0-0.5) mg/dL AST 22 (5-31) U/L ALT 14 (0-31) U/L Alkaline Phosphatase 62 (39-117) U/L Troponin I High Sens (<3.5-17.0) ng/L Total Protein 7.5 (6.5-8.0) g/dL Albumin 4.4 (3.5-5.0) g/dL Lipase 63 (8-78) U/L 04/05/20 Range/Units 15:38 WBC (4.8-10.8) X10*3/uL RBC (4.20-5.50) X10*6/uL Hgb (12.0-16.0) g/dl Hct (37-47) % MCV (80-98) fL MCH (27.0-33.0) pg MCHC (31.0-35.0) g/dl RDW (11.0-16.0) % Plt Count (160-400) X10*3/uL MPV (9.4-12.3) fL Immature Gran % (Auto) (0.0-0.4) % Neut % (Auto) (45-73) % Lymph % (Auto) (20-40) % [place] % (Auto) (2-11) % Eos % (Auto) (0-4) % Baso % (Auto) (0-2) % Lymph # (Auto) (1.2-4.9) X10*3/uL [place] # (Auto) (0.1-1.2) X10*3/uL Eos # (Auto) (0.0-0.4) X10*3/uL Baso # (Auto) (0.0-0.2) X10*3/uL Abs Immat Gran (auto) (0.00-0.03) X10*3/uL Absolute Neuts (auto) (2.0-8.3) X10*3/uL Absolute Nucleated RBC (0.0-0.012) X10*3/uL Nucleated RBC % (auto) (0.0-0.2) /100WBC D-Dimer NG/ML Hold Blue Top Sodium (135-145) mmol/L Potassium (3.3-5.1) mmol/l Chloride (96-108) mmol/L Carbon Dioxide (22-29) mmol/L Anion Gap (12-20) BUN (9-16) mg/dL Creatinine (0.5-1.4) mg/dL Estim Creat Clear Calc Estimated GFR Random Glucose (60-115) mg/dL Calcium (8.4-10.2) mg/dL Total Bilirubin (0.0-1.0) mg/dL Direct Bilirubin (0.0-0.5) mg/dL AST (5-31) U/L ALT (0-31) U/L Alkaline Phosphatase (39-117) U/L Troponin I High Sens < 3.5 (<3.5-17.0) ng/L Total Protein (6.5-8.0) g/dL Albumin (3.5-5.0) g/dL Lipase (8-78) U/L <HENRY Palmer - Last Filed: 04/05/20 16:50> ECG Data Attestation: I personally reviewed and interpreted this ECG as follows: <HENRY Palmer - Last Filed: 04/05/20 16:50> Interpretation: EKG normal sinus rhythm with a rate of 63. Nonischemic no STEMI <HENRY Palmer - Last Filed: 04/05/20 16:50> Discharge Plan Discharge Clinical Impression: Costochondritis <Niru Blanca NP - Last Filed: 04/05/20 12:43> Patient Disposition: Home, Self-Care <Niru Blanca NP - Last Filed: 04/05/20 12:43> Instructions: Costochondritis (ED) <Niru Blanca NP - Last Filed: 04/05/20 12:43> Additional Instructions: Your blood work and chest x-ray were unremarkable today in the ED Naproxen as an anti-inflammatory/pain medication, take with food In addition use Lidoderm patches and Tylenol Follow up with her doctors also [employer] [employer] If her symptoms persist or worsen, develop constant worsening chest pain, shortness of breath, or fever return to the ED <Niru Blanca NP - Last Filed: 04/05/20 12:43> Prescriptions: New acetaminophen [Tylenol Extra Strength] 500 mg tablet 500 mg PO Q6H PRN (Reason: pain or fever) Qty: 20 RF: 0 lidocaine [Lidoderm] 5 % adhesive patch,medicated 1 patch topical DAILY MDD remove after 12 hours PRN (Reason: pain) Qty: 30 RF: 0 naproxen 500 mg tablet 500 mg PO BID PRN (Reason: pain) 10 Days Qty: 20 RF: 0 No Action cyanocobalamin (vitamin B-12) 500 mcg tablet, sublingual 500 mcg sublingual DAILY 30 Days Qty: 30 RF: 11 tizanidine 4 mg tablet 4 mg PO TID PRN (Reason: muscle spasticity) Qty: 90 RF: 3 (DME) blood-glucose meter [FreeStyle Lite Meter] Kit See Rx Instructions .ROUTE .MEDSUPPLY Qty: 1 RF: 0 cetirizine 10 mg tablet 10 mg PO DAILY Qty: 30 RF: 6 simethicone 125 mg tablet,chewable 125 mg PO QID Qty: 120 RF: 3 ibuprofen 800 mg tablet 800 mg PO TID PRN (Reason: fever or pain) Qty: 90 RF: 3 cyclobenzaprine 10 mg tablet 5 mg PO TID PRN (Reason: muscle spasm) Qty: 20 RF: 0 naproxen 500 mg tablet 500 mg PO BID PRN (Reason: pain) Qty: 14 RF: 0 ibuprofen 800 mg tablet 800 mg PO TID PRNRF: 0 amitriptyline 25 mg tablet [id number] mg PO BEDTIME PRNRF: 0 alprazolam 1 mg tablet 1 mg PO TID PRNRF: 0 mometasone 0.1 % ointment 1 applic topical DAILY RF: 0 topiramate 100 mg tablet 100 mg PO BEDTIME RF: 0 fluticasone propionate [Allergy Relief (fluticasone)] 50 mcg/actuation spray,suspension 1 spray intranasal DAILY RF: 0 cyclobenzaprine 10 mg tablet 10 mg PO BEDTIME 30 Days Qty: 30 RF: 0 prednisone 10 mg tablet 10 mg PO DAILY 9 Days Qty: 18 RF: 0 topiramate [Topamax] 100 mg tablet 100 mg PO DAILY RF: 0 Linzess 290 mcg capsule 290 mcg PO DAILY RF: 0 calcium citrate-vitamin D3 [Calcium Citrate + D] 315 mg-5 mcg (200 unit) tablet 1 tab PO DAILY RF: 0 acarbose 100 mg tablet 100 mg PO TID Qty: 90 RF: 12 (DME) FreeStyle Lite Strips Strip See Rx Instructions .ROUTE .MEDSUPPLY Qty: 100 RF: 12 rosuvastatin [Crestor] 5 mg tablet 5 mg PO DAILY Qty: 30 RF: 12 (DME) lancets [FreeStyle Lancets] 28 gauge misc See Rx Instructions .ROUTE .MEDSUPPLY Qty: 100 RF: 12 alcohol swabs [Alcohol Pads] Pads, Medicated 1 pad topical TID 30 Days Qty: 100 RF: 12 Linzess 290 mcg capsule 290 mcg PO DAILY 30 Days Qty: 30 RF: 6 metoclopramide HCl [Reglan] 10 mg tablet 10 mg PO QIDACHS Qty: 120 RF: 6 <Niru Blanca NP - Last Filed: 04/05/20 12:43> Referrals: Bhavik Piña MD [Physician] - 5 days <Niru Blanca NP - Last Filed: 04/05/20 12:43>
--- NOTE | 2020-04-05 12:43 | XR_ITS ---
EXAMINATION: XR CHEST CLINICAL INFORMATION: Chest pain. COMPARISON: Chest radiographs 02/03/2020, 12/01/2019 TECHNIQUE: 2 views of the chest were obtained. FINDINGS: Lungs are clear. There is no pneumothorax, pleural reaction, infiltrate, or effusion. No groundglass opacity. The heart is normal in size. The hilar and mediastinal contours and bony structures are unremarkable. XR/XR chest 2V IMPRESSION: Unremarkable examination.
--- NOTE | 2020-04-05 12:43 | ECG_ITS ---
Test Reason : ABD PAIN Blood Pressure : / mmHG Vent. Rate : 063 BPM Atrial Rate : 063 BPM P-R Int : 156 ms QRS Dur : 090 ms QT Int : 422 ms P-R-T Axes : 050 021 020 degrees QTc Int : 431 ms Normal sinus rhythm Normal ECG When compared with ECG of 03-FEB-2020 18:12, No significant change was found Referred By: Niru Blanca Electronically Signed By:SARA GUTHRIE
--- NOTE | 2020-04-05 15:22 | ED.CHESTPAIN ---
HPI - Chest Pain General Chief Complaint: Chest Pain Stated Complaint: chest pain Time Seen by Provider: 04/05/20 12:40 Source: patient Mode of arrival: ambulatory Related Data Home Medications Medication Instructions Recorded Confirmed calcium citrate 315 mg-vitamin D3 1 tab PO DAILY 01/01/20 02/11/20 5 mcg (200 unit) tablet linaclotide 290 mcg capsule 290 mcg PO DAILY 01/01/20 02/29/20 topiramate 100 mg tablet 100 mg PO DAILY 01/01/20 02/11/20 alprazolam 1 mg tablet 1 mg PO TID PRN 02/10/20 02/11/20 amitriptyline 25 mg tablet [id number] mg PO BEDTIME PRN 02/10/20 02/11/20 fluticasone propionate 50 1 spray INTRANASAL DAILY 02/10/20 02/11/20 mcg/actuation nasal spray,suspension ibuprofen 800 mg tablet 800 mg PO TID PRN 02/10/20 02/11/20 mometasone 0.1 % topical ointment 1 applic TOPICAL DAILY 02/10/20 02/11/20 topiramate 100 mg tablet 100 mg PO BEDTIME 02/10/20 02/11/20 Previous Rx's Medication Instructions Recorded acarbose 100 mg tablet 100 mg PO TID #90 tab 01/01/20 alcohol swabs 1 pad TOPICAL TID 30 Days #100 ea 01/01/20 blood sugar diagnostic #100 ea 01/01/20 lancets 28 gauge #100 ea 01/01/20 rosuvastatin 5 mg tablet 5 mg PO DAILY #30 tab 01/01/20 cyanocobalamin (vitamin B-12) 500 500 mcg SUBLINGUAL DAILY 30 Days 01/03/20 mcg sublingual tablet #30 tab tizanidine 4 mg tablet 4 mg PO TID PRN #90 tab 01/21/20 cyclobenzaprine 5 mg PO TID PRN #20 tab 02/03/20 naproxen 500 mg PO BID PRN #14 tab 02/03/20 cyclobenzaprine 10 mg tablet 10 mg PO BEDTIME 30 Days #30 tab 02/10/20 prednisone 10 mg tablet 10 mg PO DAILY 9 Days #18 tab 02/10/20 blood-glucose meter #1 ea 02/25/20 linaclotide 290 mcg capsule 290 mcg PO DAILY 30 Days #30 cap 02/29/20 metoclopramide HCl 10 mg tablet 10 mg PO QIDACHS #120 tab 02/29/20 cetirizine 10 mg tablet 10 mg PO DAILY #30 tab 03/04/20 simethicone 125 mg chewable tablet 125 mg PO QID #120 ea 03/07/20 ibuprofen 800 mg tablet 800 mg PO TID PRN #90 tab 03/22/20 Allergies Allergy/AdvReac Type Severity Reaction Status Date / Time lisinopril [LISINOPRIL] Allergy Severe ANAPYHLAXIS, Verified 02/29/20 10:00 swelling metformin [METFORMIN] Allergy Severe ANAPHYLAXIS, Verified 02/29/20 10:00 diarrhea sumatriptan [From IMITREX] Allergy Severe ANAPHYLAXIS, Verified 02/29/20 10:00 sedation [facility] Past Medical History Medical History (Updated 03/15/20 @ 13:19 by Jean Wu MD) Anal fissure Anxiety Arthritis B12 deficiency Chronic pain syndrome Constipation Dyslipidemia EKG abnormalities Gastroparesis GERD (gastroesophageal reflux disease) Hepatitis A Hepatitis B Hepatomegaly Hypoglycemia after GI (gastrointestinal) surgery Insomnia Leukocytosis Occipital neuralgia of left side MIO on CPAP Proteinuria Renal stones Shoulder pain, left Spondylosis of cervical spine without myelopathy 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 Upper abdominal pain Surgical History History of esophagogastroduodenoscopy (EGD) History of umbilical hernia Hx of bilateral breast reduction surgery Hx of section Hx of cholecystectomy Hx of lithotripsy Family History Family History Father Liver cancer Hypertension Diabetes mellitus Mother Hypercholesterolemia Breast cancer Asthma Social History Social History (Updated 02/29/20 @ 10:01 by JACKY Underwood) Household Members: None Alcohol intake: current Alcohol intake frequency: does not drink Smoking Status: Never smoker Advance Directives: No Advance Directives Information Provided: No Physical Exam Vital Signs: Vital Signs: Last Vital Signs Temp 98.5 F 04/05/20 12:40 Pulse 70 04/05/20 12:40 Resp 20 04/05/20 12:40 BP 135/76 04/05/20 12:40 Pulse Ox 100 04/05/20 12:40 Body Mass Index 33.5 Discharge Plan Discharge Prescriptions: No Action cyanocobalamin (vitamin B-12) 500 mcg tablet, sublingual 500 mcg sublingual DAILY 30 Days Qty: 30 RF: 11 tizanidine 4 mg tablet 4 mg PO TID PRN (Reason: muscle spasticity) Qty: 90 RF: 3 (DME) blood-glucose meter [FreeStyle Lite Meter] Kit See Rx Instructions .ROUTE .MEDSUPPLY Qty: 1 RF: 0 cetirizine 10 mg tablet 10 mg PO DAILY Qty: 30 RF: 6 simethicone 125 mg tablet,chewable 125 mg PO QID Qty: 120 RF: 3 ibuprofen 800 mg tablet 800 mg PO TID PRN (Reason: fever or pain) Qty: 90 RF: 3 cyclobenzaprine 10 mg tablet 5 mg PO TID PRN (Reason: muscle spasm) Qty: 20 RF: 0 naproxen 500 mg tablet 500 mg PO BID PRN (Reason: pain) Qty: 14 RF: 0 ibuprofen 800 mg tablet 800 mg PO TID PRNRF: 0 amitriptyline 25 mg tablet [id number] mg PO BEDTIME PRNRF: 0 alprazolam 1 mg tablet 1 mg PO TID PRNRF: 0 mometasone 0.1 % ointment 1 applic topical DAILY RF: 0 topiramate 100 mg tablet 100 mg PO BEDTIME RF: 0 fluticasone propionate [Allergy Relief (fluticasone)] 50 mcg/actuation spray,suspension 1 spray intranasal DAILY RF: 0 cyclobenzaprine 10 mg tablet 10 mg PO BEDTIME 30 Days Qty: 30 RF: 0 prednisone 10 mg tablet 10 mg PO DAILY 9 Days Qty: 18 RF: 0 topiramate [Topamax] 100 mg tablet 100 mg PO DAILY RF: 0 Linzess 290 mcg capsule 290 mcg PO DAILY RF: 0 calcium citrate-vitamin D3 [Calcium Citrate + D] 315 mg-5 mcg (200 unit) tablet 1 tab PO DAILY RF: 0 acarbose 100 mg tablet 100 mg PO TID Qty: 90 RF: 12 (DME) FreeStyle Lite Strips Strip See Rx Instructions .ROUTE .MEDSUPPLY Qty: 100 RF: 12 rosuvastatin [Crestor] 5 mg tablet 5 mg PO DAILY Qty: 30 RF: 12 (DME) lancets [FreeStyle Lancets] 28 gauge misc See Rx Instructions .ROUTE .MEDSUPPLY Qty: 100 RF: 12 alcohol swabs [Alcohol Pads] Pads, Medicated 1 pad topical TID 30 Days Qty: 100 RF: 12 Linzess 290 mcg capsule 290 mcg PO DAILY 30 Days Qty: 30 RF: 6 metoclopramide HCl [Reglan] 10 mg tablet 10 mg PO QIDACHS Qty: 120 RF: 6
[2020-04-05 15:45] LABS: MANUAL DIFF FLAG NO
[2020-04-05 15:48] LABS: Basophils Absolute Auto 0.1 X10*3/uL (0.0-0.2); Basophils Percent Auto 0.8 % (0-2); Eosinophils Absolute Auto 0.2 X10*3/uL (0.0-0.4); Eosinophils Percent Auto 1.8 % (0-4); Hematocrit 34.5 % (37-47); Hemoglobin 10.9 g/dl (12.0-16.0); Imm Gran Abs Auto 0.03 X10*3/uL (0.00-0.03); Imm Gran Pct Auto 0.3 % (0.0-0.4); Lymphocytes Absolute Auto 2.8 X10*3/uL (1.2-4.9); Lymphocytes Percent Auto 30.1 % (20-40); Mean Corpuscular HGB Conc 31.6 g/dl (31.0-35.0); Mean Corpuscular Hemoglobin 27.2 pg (27.0-33.0); Mean Platelet Volume 10.5 fL (9.4-12.3); Monocytes Absolute Auto 0.7 X10*3/uL (0.1-1.2); Monocytes Percent Auto 7.9 % (2-11); Neutrophils Absolute Auto 5.4 X10*3/uL (2.0-8.3); Neutrophils Percent Auto 59.1 % (45-73); Platelet Count 308 X10*3/uL (160-400); Red Blood Count 4.01 X10*6/uL (4.20-5.50); Red Cell Distribution Width 13.3 % (11.0-16.0); White Blood Count 9.1 X10*3/uL (4.8-10.8)
[2020-04-05 16:02] LABS: D Dimer < 200 NG/ML
[2020-04-05 16:13] LABS: Alanine Aminotransferase 14 U/L (0-31); Albumin Level 4.4 g/dL (3.5-5.0); Alkaline Phosphatase 62 U/L (39-117); Anion Gap 13 (12-20); Aspartate Amino Transferase 22 U/L (5-31); Bilirubin Direct < 0.2 mg/dL (0.0-0.5); Bilirubin Total 0.2 mg/dL (0.0-1.0); Blood Urea Nitrogen 17 mg/dL (9-16); Calcium 9.3 mg/dL (8.4-10.2); Carbon Dioxide 23 mmol/L (22-29); Chloride 106 mmol/L (96-108); Creatinine Clr Calc Pharmacy 79.7; Estimated Glomerular Filt Rate > 60; Glucose Random 82 mg/dL (60-115); Lipase 63 U/L (8-78); Potassium 4.3 mmol/l (3.3-5.1); Sodium 138 mmol/L (135-145); Total Protein 7.5 g/dL (6.5-8.0)
[2020-04-05] MEDS: Famotidine 20 MG TABLET PO (16:13)
[2020-04-05 16:19] LABS: Troponin-I High Sensitivity < 3.5 ng/L (<3.5-17.0)
[2020-04-05 18:29] LABS: PLT ABN DIST 1
== END 2020-04-05 17:01 | disposition home or self-care (01) ==
PROVIDERS: Nurse Practitioner Family; Physician Assistant; Emergency Provider Emergency Medicine; PCP Internal Medicine
DX: M94.0 Chondrocostal junction syndrome [Tietze] (principal)
CPT/HCPCS: 36415; 71046; 80048; 80076; 83690; 84484; 85025; 85379; 93005; 99283

== ENCOUNTER → 2020-05-18 10:58 | Outpatient (BNVA) | payer MEDICARE, MEDICAID, SELFPAY | PROVIDERS: PCP Internal Medicine; Visit Provider Internal Medicine Cardiovascular Disease | DX: R07.9 Chest pain, unspecified (principal); E78.00 Pure hypercholesterolemia, unspecified; Z79.899 Other long term (current) drug therapy | CPT/HCPCS: 93005; 99202 ==

== ENCOUNTER → 2020-06-28 08:26 | Outpatient (REF) | payer MEDICARE, MEDICAID, SELFPAY ==
--- NOTE | 2020-06-28 08:29 | CA_ITS ---
Transthoracic Echocardiogram Patient (Last, First, Middle): Ton Godoy, Gender: Female Date of : 1975 Age: 44 Procedure Date: 06/28/2020 Procedure Type: Transthoracic Echocardiogram Location: OP Height: 160.02 cm Weight: 74.39 kg BSA: 1.78 m2 Heart Rate: bpm BP: 122 / 70 mmHg Broadcast Operations Technician: Referring MD: Wai Zavala MD Symptoms: R07.9 - Chest pain, unspecified Study Quality: Good ECG Rhythm: Sinus Conclusions: - The left ventricular systolic function is normal. The visually estimated ejection fraction is between 60-65%. - No obvious valvular pathology seen on this study. Findings Left Ventricle Normal left ventricular cavity size. There is normal left ventricular wall thickness. The left ventricular systolic function is normal. The visually estimated ejection fraction is between 60-65%. There is no evidence of regional wall motion abnormalities. Diastolic function is normal for age. Right Ventricle Normal right ventricular cavity size and systolic function. Atria The left atrium is normal in size. The right atrium is normal in size. Aortic Valve There is a normal trileaflet aortic valve. There is no aortic valve stenosis. There is trace (trivial) aortic valve regurgitation. Mitral Valve The mitral valve appears normal. There is trace mitral valve regurgitation. There is no mitral valve stenosis. Pulmonic Valve The pulmonic valve was not well visualized. Tricuspid Valve Normal tricuspid valve structure. There is trace tricuspid valve regurgitation. The pulmonary artery systolic pressure is normal. Great Vessels The aortic annulus, sinuses of valsalva, and asc aorta are normal in size. Venous The inferior vena cava is normal in size and collapses greater than 50% with inspiration. Pericardium/Pleural There is no evidence of pericardial effusion. Prior Study Comparison No significant change compared to prior study dated: 01/30/2010. Recommendations, Care & Conclusions No obvious valvular pathology seen on this study. Measurements 2D Linear Measurements IVSd: 0.92 0.6-0.9/0.6-1.0 cm LVIDd: 4.52 3.9-5.3/4.2-5.9 cm LVIDd Index: 2.54 2.4-3.2/2.2-3.1 cm/m2 LVIDs: 2.55 2.0-3.6 cm LVPWd: 0.95 0.7-1.1 cm Ao Root: 2.60 2.1-3.5 cm LA Diam: 3.50 2.7-3.8/3.0-4.0 cm LAIDs Index: 1.97 1.5-2.3 cm/m2 LV Mass: 176.21 67-162/88-224 g LV Mass Index: 98.99 43-95/49-115 g/m2 LVOT Diam: 1.90 3.0+(-)1.3 cm Mitral Valve MV Pk E: 0.96 MV PK A: 0.60 MV Decel Time: 134.00 E/A: 1.60 E'Lateral: 13.40 E'Medial: 8.70 E/E' Med: 11.00 E/E' Lat: 7.10 PHT: 39.00 MVA PHT: 5.64 Decel [place]: 7.14 Aortic Valve AoV Pk Thad: 1.42 AoV Mn Thad: 0.88 AoV VTI: 0.32 AoV Pk Grad: 8.00 Aov Mn Grad: 4.00 IVAN Cont.VTI: 2.31 LVOT LVOT Pk Thad: 1.15 LVOT Mn Thad: 0.76 LVOT VTI: 0.26 LVOT Pk Grad: 5.00 LVOT Mn Grad: 3.00 LVOT Diam: 1.90 LVOT Area: 2.84 Diastolic Function MV Pk E: 0.96 MV Pk A: 0.60 E/A: 1.60 E'Medial: 8.70 E/E' Med: 11.00 E' Laterial: 13.40 E/E' Lat: 7.10 Tricuspid Valve TR Pk Thad: 2.24 TR Pk Grad: 20.00 RA Press: 3.00 RVSP: 23.00 Great Vessels Aorta Ao Root-2D: 2.60 2.0-3.7 cm Ao Asc: 2.90 2.1-3.4 cm Pulmonary Valve PV Pk Thad: 0.87 Peak PV Grad: 3.00 Updated in Other Vendor System with Status of Final Bhavik Piña MD electronically signed on 06/28/2020 11:10:45 AM with status of Final
== END ==
LOC: HO.CARD 08:26
PROVIDERS: Visit Provider Internal Medicine Cardiovascular Disease
DX: R07.9 Chest pain, unspecified (principal)
CPT/HCPCS: 93306

== ENCOUNTER 2020-07-03 19:13 | Emergency (ER) | payer MEDICARE, MEDICAID, SELFPAY ==
--- NOTE | ~2020-07-03 | CT_ITS ---
EXAMINATION: CT ABDOMEN AND PELVIS WITHOUT CONTRAST CLINICAL INFORMATION: Nonspecific upper abdominal pain following gastric bypass. COMPARISON: Most recent CT abdomen/pelvis dated 03/07/2019. TECHNIQUE: Multidetector volumetric imaging was performed from the superior aspect of the liver through the pubic symphysis. Sagittal and coronal reformatted images were obtained on the technologist's workstation. This CT examination was performed using dose optimization techniques as appropriate, variously including the following: *Automated exposure control *Adjustment of mA and/or kV according to patient size (this includes techniques or standardized protocols for targeted exams where dose is matched to indication/reason for exam; i.e. extremities or head) *Use of iterative reconstruction technique DLP: 615 mGy-cm FINDINGS: LUNG BASES: The visualized lung bases are unremarkable. LIVER, GALLBLADDER, AND BILIARY TREE: The liver is normal in size, shape, and attenuation. No focal hepatic lesion or biliary ductal dilatation is present. Status post cholecystectomy. PANCREAS: Unremarkable. SPLEEN: Unremarkable. ADRENAL GLANDS: Unremarkable. KIDNEYS AND URETERS: The kidneys are normal in size, shape, and attenuation. Left midpole 0.2 cm renal stone, new when compared to the prior examination. The stone is too small to characterize by Hounsfield units and is located approximately 10.7 cm from the posterior axillary line. No additional renal or ureteral stone. No hydronephrosis or hydroureter. No perinephric stranding. BLADDER: Unremarkable. GASTROINTESTINAL TRACT: Postsurgical changes consistent with a Maryann-en-Y gastric bypass. Unremarkable gastrojejunal and jejunojejunal anastomoses. No evidence of leak or obstruction. No bowel wall thickening or associated inflammatory change. Unremarkable appendix. PERITONEAL CAVITY: No intra-abdominal free air or free fluid. No intra-abdominal mass or organized fluid collection/abscess formation. ABDOMINAL WALL: Postsurgical change consistent with anterior abdominal wall hernia repair. No significant abdominal wall hernia. LYMPH NODES: No significant lymphadenopathy. Evaluation somewhat limited without IV contrast. VASCULAR: Unremarkable. PELVIC VISCERA: The uterus and adnexa are unremarkable. OSSEOUS STRUCTURES: Unremarkable. CT/CT abdomen pelvis wo con IMPRESSION: 1. Maryann-en-Y gastric bypass postsurgical changes without evidence of complication. No bowel wall thickening or associated inflammatory change. No small or large bowel obstruction. Unremarkable appendix. 2. New, nonobstructing left midpole renal stone measuring 0.2 cm. No additional renal or ureteral stone. No hydronephrosis or hydroureter. 3. No new intra-abdominal mass, lymphadenopathy, or ascites.
[2020-07-03 19:15] VITALS: BP 124/70; PULSE 82; O2SAT 98
[2020-07-03 19:35] VITALS: BP 131/79; PULSE 78; RESP 18; TEMP 36.9; O2SAT 99; BMI 34.2
[2020-07-03 19:57] LABS: MANUAL DIFF FLAG NO
[2020-07-03 19:59] LABS: Basophils Percent Auto 0.3 % (0-2); Eosinophils Percent Auto 0.3 % (0-4); Hematocrit 35.7 % (37-47); Hemoglobin 11.3 g/dl (12.0-16.0); Imm Gran Abs Auto 0.07 X10*3/uL (0.00-0.03); Imm Gran Pct Auto 0.5 % (0.0-0.4); Lymphocytes Absolute Auto 1.1 X10*3/uL (1.2-4.9); Lymphocytes Percent Auto 7.3 % (20-40); Mean Corpuscular HGB Conc 31.7 g/dl (31.0-35.0); Mean Corpuscular Hemoglobin 27.1 pg (27.0-33.0); Mean Corpuscular Volume 85.6 fL (80-98); Mean Platelet Volume 10.3 fL (9.4-12.3); Monocytes Absolute Auto 0.8 X10*3/uL (0.1-1.2); Monocytes Percent Auto 5.3 % (2-11); Neutrophils Absolute Auto 13.3 X10*3/uL (2.0-8.3); Neutrophils Percent Auto 86.3 % (45-73); Platelet Count 322 X10*3/uL (160-400); Red Blood Count 4.17 X10*6/uL (4.20-5.50); Red Cell Distribution Width 13.8 % (11.0-16.0); White Blood Count 15.4 X10*3/uL (4.8-10.8)
[2020-07-03 20:26] LABS: Glucose Urine UA NEG (NEG); Leukocyte Esterase Urine NEG (NEG); Nitrite Urine NEG (NEG); PH 8.5 (5.0-8.0); Specific Gravity - Urine 1.015 (1.005-1.025); Urine Blood NEG (NEG); Urine Ketones NEG (NEG); Urine Protein NEG (NEG-TRACE)
[2020-07-03 20:28] LABS: Appearance Urine HAZY; Color Urine YELLOW
[2020-07-03 20:33] LABS: Alanine Aminotransferase 19 U/L (0-31); Albumin Level 4.4 g/dL (3.5-5.0); Alkaline Phosphatase 66 U/L (39-117); Anion Gap 12 (12-20); Aspartate Amino Transferase 21 U/L (5-31); Bilirubin Direct < 0.2 mg/dL (0.0-0.5); Bilirubin Total 0.4 mg/dL (0.0-1.0); Blood Urea Nitrogen 15 mg/dL (9-16); Calcium 9.1 mg/dL (8.4-10.2); Carbon Dioxide 21 mmol/L (22-29); Chloride 110 mmol/L (96-108); Creatinine Clr Calc Pharmacy 80.5; Estimated Glomerular Filt Rate > 60; Glucose Random 107 mg/dL (60-115); Lipase 71 U/L (8-78); Potassium 4.1 mmol/L (3.3-5.1); Sodium 139 mmol/L (135-145); Total Protein 7.5 g/dL (6.5-8.0)
[2020-07-03 22:53] VITALS: BP 113/66; PULSE 66; RESP 18; TEMP 36.9; O2SAT 100
--- NOTE | 2020-07-03 22:53 | ED.ABDPAIN ---
HPI - Abdominal Pain General Chief Complaint: Abdominal Pain Stated Complaint: abd pain Time Seen by Provider: 07/03/20 22:53 Source: patient Mode of arrival: ambulatory Limitations: no limitations History of Present Illness HPI narrative: Patient is status post gastric bypass surgery 2016 was doing fine until today morning noticed upper abdominal pain bilateral with nausea no vomiting no diarrhea had normal bowel moved in the morning no fever patient feels pain radiating to the back patient never had similar pain in the past no history of kidney stone or urinary complaints no fever or chills patient is localized bilateral upper abdomen, is cramping Related Data Home Medications Medication Instructions Recorded Confirmed calcium citrate 315 mg-vitamin D3 1 tab PO DAILY 01/01/20 05/26/20 5 mcg (200 unit) tablet alprazolam 1 mg tablet 1 mg PO TID PRN 02/10/20 05/26/20 amitriptyline 25 mg tablet 25 mg PO BEDTIME PRN tab 04/18/20 05/26/20 lancets 33 gauge #100 ea 04/18/20 05/26/20 Previous Rx's Medication Instructions Recorded acarbose 100 mg tablet 100 mg PO TID #90 tab 01/01/20 alcohol swabs 1 pad TOPICAL TID 30 Days #100 ea 01/01/20 blood sugar diagnostic #100 ea 01/01/20 lancets 28 gauge #100 ea 01/01/20 rosuvastatin 5 mg tablet 5 mg PO DAILY #30 tab 01/01/20 cyanocobalamin (vitamin B-12) 500 500 mcg SUBLINGUAL DAILY 30 Days 01/03/20 mcg sublingual tablet #30 tab blood-glucose meter #1 ea 02/25/20 linaclotide 290 mcg capsule 290 mcg PO DAILY 30 Days #30 cap 02/29/20 metoclopramide HCl 10 mg tablet 10 mg PO QIDACHS #120 tab 02/29/20 simethicone 125 mg chewable tablet 125 mg PO QID #120 ea 03/07/20 ibuprofen 800 mg tablet 800 mg PO TID PRN #90 tab 03/22/20 topiramate 100 mg tablet 100 mg PO BEDTIME #90 tab 04/19/20 amoxicillin 875 mg tablet 875 mg PO BID 10 Days #20 tab 05/23/20 cetirizine 10 mg tablet 10 mg PO DAILY #30 tab 05/23/20 fluticasone propionate 50 1 spray INTRANASAL DAILY #16 ml 06/07/20 mcg/actuation nasal spray,suspension tramadol 50 mg tablet See Rx Instructions .ROUTE 06/13/20 .COMPLEX 30 Days #30 tab Allergies Allergy/AdvReac Type Severity Reaction Status Date / Time lisinopril [LISINOPRIL] Allergy Severe ANAPYHLAXIS, Verified 04/18/20 11:16 swelling metformin [METFORMIN] Allergy Severe ANAPHYLAXIS, Verified 04/18/20 11:16 diarrhea sumatriptan [From IMITREX] Allergy Severe ANAPHYLAXIS, Verified 04/18/20 11:16 sedation Review of Systems Review of Systems Constitutional : No Weight loss, No Fever, No Chills ENT/Mouth : No sore throat, No Rhinorrhea Eyes: No Eye Pain, No Swelling Cardiovascular : No Chest Pain, no palpitations Respiratory : No Cough, No Sputum, no shortness of breath Gastrointestinal : ++ Nausea, No Vomiting, No Diarrhea, + abdominal Pain, no black stools Genitourinary : No Dysuria, No Urinary Frequency Musculoskeletal : No joint pain, No Myalgias, No Joint Swelling Skin : No Skin Lesions, No rash Neuro : No Weakness, No Numbness, No Dizziness, No Headache Psych : No Anxiety/Panic, No Depression Heme/Lymph: No Bruising, No Lymphadenopathy Endocrine : No Polyuria, No Polydipsia All other systems reviewed and are negative Physical Exam Vital Signs: Vital Signs: Last Vital Signs Temp 98.4 F 07/03/20 22:53 Pulse 66 07/03/20 22:53 Resp 18 07/03/20 22:53 BP 113/66 07/03/20 22:53 Pulse Ox 100 07/03/20 22:53 Body Mass Index 34.2 Appearance: Alert. Oriented X3. No acute distress. Eyes: Pupils equal, round and reactive to light. ENT: Pharynx normal. Neck: Normal inspection. Neck supple. CVS: Normal heart rate and rhythm. Pulses normal. Respiratory: No respiratory distress. Breath sounds normal. Abdomen: Soft , mild diffusely tender upper abdomen both right and left upper quadrant no rebound tenderness or guarding Bowel sounds are present, no mass palpable, no CVA tenderness Skin: Skin warm and dry. Normal skin color. Normal skin turgor. Extremities: No lower extremity edema. Neuro: Oriented X 3. No motor deficit. No sensory deficit. MDM - Abdominal Pain MDM Narrative Medical decision making narrative: Patient workup shows slightly elevated WBC count etiology not very clear CT scan negative except showed 0.2 cm stone in the left kidney without any hydronephrosis, urine is negative. Patient feeling better now taking p.o. fluids will discharge home Differential Diagnosis Differential diagnosis: Likely abdominal pain Lab Data Attestation: I reviewed the patient's lab results. Result diagrams: 07/03/20 19:49 07/03/20 19:49 Labs: Lab Results 07/03/20 07/03/20 07/03/20 Range/Units 19:49 19:49 19:49 WBC 15.4 H (4.8-10.8) X10*3/uL RBC 4.17 L (4.20-5.50) X10*6/uL Hgb 11.3 L (12.0-16.0) g/dl Hct 35.7 L (37-47) % MCV 85.6 (80-98) fL MCH 27.1 (27.0-33.0) pg MCHC 31.7 (31.0-35.0) g/dl RDW 13.8 (11.0-16.0) % Plt Count 322 (160-400) X10*3/uL MPV 10.3 (9.4-12.3) fL Immature Gran % (Auto) 0.5 H (0.0-0.4) % Neut % (Auto) 86.3 H (45-73) % Lymph % (Auto) 7.3 L (20-40) % [place]eline % (Auto) 5.3 (2-11) % Eos % (Auto) 0.3 (0-4) % Baso % (Auto) 0.3 (0-2) % Lymph # (Auto) 1.1 L (1.2-4.9) X10*3/uL [place] # (Auto) 0.8 (0.1-1.2) X10*3/uL Eos # (Auto) 0.0 (0.0-0.4) X10*3/uL Baso # (Auto) 0.0 (0.0-0.2) X10*3/uL Abs Immat Gran (auto) 0.07 H (0.00-0.03) X10*3/uL Absolute Neuts (auto) 13.3 H (2.0-8.3) X10*3/uL Absolute Nucleated RBC 0.000 (0.0-0.012) X10*3/uL Nucleated RBC % (auto) 0.0 (0.0-0.2) /100WBC Sodium 139 (135-145) mmol/L Potassium 4.1 (3.3-5.1) mmol/L Chloride 110 H (96-108) mmol/L Carbon Dioxide 21 L (22-29) mmol/L Anion Gap 12 (12-20) BUN 15 (9-16) mg/dL Creatinine 0.84 (0.5-1.4) mg/dL Estim Creat Clear Calc 80.5 Estimated GFR > 60 Random Glucose 107 (60-115) mg/dL Calcium 9.1 (8.4-10.2) mg/dL Total Bilirubin 0.4 (0.0-1.0) mg/dL Direct Bilirubin < 0.2 (0.0-0.5) mg/dL AST 21 (5-31) U/L ALT 19 (0-31) U/L Alkaline Phosphatase 66 (39-117) U/L Total Protein 7.5 (6.5-8.0) g/dL Albumin 4.4 (3.5-5.0) g/dL Lipase 71 (8-78) U/L Urine Color YELLOW Urine Appearance HAZY Urine pH 8.5 H (5.0-8.0) Ur Specific [place] 1.015 (1.005-1.025) Urine Protein NEG (NEG-TRACE) MG/DL Urine Glucose (UA) NEG (NEG) MG/DL Urine Ketones NEG (NEG) MG/DL Urine Blood NEG (NEG) Urine Nitrite NEG (NEG) Ur Leukocyte Esterase NEG (NEG) Imaging Data CT scan - abdomen: Attestation: I personally reviewed and interpreted this imaging study as follows: Radiologist's impression: CT/CT abdomen pelvis wo con IMPRESSION: 1. Maryann-en-Y gastric bypass postsurgical changes without evidence of complication. No bowel wall thickening or associated inflammatory change. No small or large bowel obstruction. Unremarkable appendix. 2. New, nonobstructing left midpole renal stone measuring 0.2 cm. No additional renal or ureteral stone. No hydronephrosis or hydroureter. 3. No new intra-abdominal mass, lymphadenopathy, or ascites. Discharge Plan Discharge Prescriptions: No Action cyanocobalamin (vitamin B-12) 500 mcg tablet, sublingual 500 mcg sublingual DAILY 30 Days Qty: 30 RF: 11 (DME) blood-glucose meter [FreeStyle Lite Meter] Kit See Rx Instructions .ROUTE .MEDSUPPLY Qty: 1 RF: 0 simethicone 125 mg tablet,chewable 125 mg PO QID Qty: 120 RF: 3 ibuprofen 800 mg tablet 800 mg PO TID PRN (Reason: fever or pain) Qty: 90 RF: 3 topiramate 100 mg tablet 100 mg PO BEDTIME Qty: 90 RF: 1 fluticasone propionate 50 mcg/actuation spray,suspension 1 spray intranasal DAILY Qty: 16 RF: 3 tramadol 50 mg tablet See Rx Instructions .ROUTE .COMPLEX 30 Days Qty: 30 RF: 0 (DME) lancets 33 gauge misc See Rx Instructions ea Not Applicable TID Qty: 100 RF: 0 amoxicillin 875 mg tablet 875 mg PO BID 10 Days Qty: 20 RF: 0 cetirizine 10 mg tablet 10 mg PO DAILY Qty: 30 RF: 6 alprazolam 1 mg tablet 1 mg PO TID PRNRF: 0 amitriptyline 25 mg tablet 25 mg PO BEDTIME PRNRF: 0 calcium citrate-vitamin D3 [Calcium Citrate + D] 315 mg-5 mcg (200 unit) tablet 1 tab PO DAILY RF: 0 acarbose 100 mg tablet 100 mg PO TID Qty: 90 RF: 12 (DME) FreeStyle Lite Strips Strip See Rx Instructions .ROUTE .MEDSUPPLY Qty: 100 RF: 12 rosuvastatin [Crestor] 5 mg tablet 5 mg PO DAILY Qty: 30 RF: 12 (DME) lancets [FreeStyle Lancets] 28 gauge misc See Rx Instructions .ROUTE .MEDSUPPLY Qty: 100 RF: 12 alcohol swabs [Alcohol Pads] Pads, Medicated 1 pad topical TID 30 Days Qty: 100 RF: 12 Linzess 290 mcg capsule 290 mcg PO DAILY 30 Days Qty: 30 RF: 6 metoclopramide HCl [Reglan] 10 mg tablet 10 mg PO QIDACHS Qty: 120 RF: 6 PMFSH Past Medical History Medical History Allergic rhinitis Anal fissure Anxiety Arthritis B12 deficiency Chronic pain syndrome Constipation Costochondritis Diabetes mellitus Dyslipidemia EKG abnormalities Gastroparesis GERD (gastroesophageal reflux disease) Hepatitis A Hepatitis B Hepatomegaly Hypoglycemia after GI (gastrointestinal) surgery Insomnia Leukocytosis Lumbar degenerative disc disease Migraine Obesity (BMI 30-39.9) Occipital neuralgia of left side MIO on CPAP Proteinuria Pure hypercholesterolemia Recurrent chest pain Renal stones Shoulder pain, left Sinusitis Spondylosis of cervical spine without myelopathy 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 Upper abdominal pain Vitamin D deficiency Surgical History H/O gastric bypass History of esophagogastroduodenoscopy (EGD) History of tubal ligation History of umbilical hernia Hx of bilateral breast reduction surgery Hx of section Hx of cholecystectomy Hx of lithotripsy Family History Family History Father Liver cancer Hypertension Diabetes mellitus CVD (cardiovascular disease) Liver failure Mother Hypercholesterolemia Breast cancer Asthma Depression Maternal Grandmother Diabetes mellitus Hypertension Paternal Grandmother Diabetes mellitus Hypertension Social History Social History Household Members: None Alcohol intake: never Smoking Status: Never smoker Use of substances other than those prescribed or required for medical reasons: No Advance Directives: No
[2020-07-03] MEDS: Dicyclomine HCl 10 MG CAPSULE 20 MG PO (23:08)
== END 2020-07-04 00:48 | disposition home or self-care (01) ==
PROVIDERS: Emergency Provider Internal Medicine; PCP Internal Medicine
DX: R10.9 Unspecified abdominal pain (principal); M54.5 Low back pain; Z79.899 Other long term (current) drug therapy
CPT/HCPCS: 36415; 74176; 80048; 80076; 81003; 83690; 85025; 99284

== ENCOUNTER 2020-07-05 13:52 | Emergency (ER) | payer MEDICARE, MEDICAID, SELFPAY ==
--- NOTE | ~2020-07-05 | XR_ITS ---
EXAMINATION: XR SOFT TISSUE NECK CLINICAL INDICATION: Evaluate food bolus. COMPARISON: None TECHNIQUE: 2 views of the soft tissue neck were obtained. FINDINGS: Soft tissue films of the neck demonstrate a normal larynx, pharynx and upper trachea. No soft tissue swelling or opaque foreign body is demonstrated. XR/XR soft tissue neck IMPRESSION: Unremarkable examination.
--- NOTE | ~2020-07-05 | XR_ITS ---
EXAMINATION: XR CHEST CLINICAL INFORMATION: Evaluate food bolus. COMPARISON: Most recent chest radiograph dated 04/05/2020. TECHNIQUE: Frontal view of the chest was obtained. FINDINGS: The lungs are clear. The cardiomediastinal silhouette is normal in size. There is no pleural effusion or pneumothorax. No acute osseous abnormality. Right upper quadrant surgical clips. XR/XR chest 1V IMPRESSION: No acute cardiopulmonary findings.
[2020-07-05 13:59] VITALS: BP 117/66; PULSE 79; RESP 20; TEMP 37.1; O2SAT 98; BMI 28.4
--- NOTE | 2020-07-05 15:10 | ED.GENADULT ---
HPI - General Adult General Chief complaint: General Medical <HENRY Palmer - Last Filed: 07/05/20 16:46> Stated complaint: PARTIAL AIRWAY OBSTRUCTION <HENRY Palmer Last Filed: 07/05/20 16:46> Time Seen by Provider: 07/05/20 13:58 <HENRY Palmer - Last Filed: 07/05/20 16:46> Source: patient <HENRY Palmer Last Filed: 07/05/20 16:46> Mode of arrival: EMS <HENRY Palmer - Last Filed: 07/05/20 16:46> History of Present Illness HPI narrative: 44-year-old female with past medical history of anxiety, arthritis, diabetes, dyslipidemia, hepatitis A/B, MIO on CPAP, renal stones, BIBA complaining of foreign body sensation in throat s/p eating beef steak [employer]. Reports feels like steak is stuck in throat, is painful, unable to swallow, reports tried to drink water which she threw up. Denies difficulty breathing, SOB, CP, abdominal pain <HENRY Palmer - Last Filed: 07/05/20 16:46> Related Data Home medications: Home Medications Medication Instructions Recorded Confirmed calcium citrate 315 mg-vitamin D3 1 tab PO DAILY 01/01/20 07/06/20 5 mcg (200 unit) tablet alprazolam 1 mg tablet 1 mg PO TID PRN 02/10/20 07/06/20 amitriptyline 25 mg tablet 25 mg PO BEDTIME PRN tab 04/18/20 07/06/20 lancets 33 gauge #100 ea 04/18/20 07/06/20 Previous Rx's Medication Instructions Recorded acarbose 100 mg tablet 100 mg PO TID #90 tab 01/01/20 alcohol swabs 1 pad TOPICAL TID 30 Days #100 ea 01/01/20 blood sugar diagnostic #100 ea 01/01/20 lancets 28 gauge #100 ea 01/01/20 rosuvastatin 5 mg tablet 5 mg PO DAILY #30 tab 01/01/20 cyanocobalamin (vitamin B-12) 500 500 mcg SUBLINGUAL DAILY 30 Days 01/03/20 mcg sublingual tablet #30 tab blood-glucose meter #1 ea 02/25/20 linaclotide 290 mcg capsule 290 mcg PO DAILY 30 Days #30 cap 02/29/20 metoclopramide HCl 10 mg tablet 10 mg PO QIDACHS #120 tab 02/29/20 simethicone 125 mg chewable tablet 125 mg PO QID #120 ea 03/07/20 ibuprofen 800 mg tablet 800 mg PO TID PRN #90 tab 03/22/20 topiramate 100 mg tablet 100 mg PO BEDTIME #90 tab 04/19/20 amoxicillin 875 mg tablet 875 mg PO BID 10 Days #20 tab 05/23/20 cetirizine 10 mg tablet 10 mg PO DAILY #30 tab 05/23/20 fluticasone propionate 50 1 spray INTRANASAL DAILY #16 ml 06/07/20 mcg/actuation nasal spray,suspension tramadol 50 mg tablet See Rx Instructions .ROUTE 06/13/20 .COMPLEX 30 Days #30 tab tramadol 50 mg PO Q6H PRN #20 tab 07/04/20 alum-mag hydroxide-simeth [Maalox 5 ml PO 5XD PRN #30 ml 07/05/20 Advanced] famotidine [Pepcid] 20 mg PO DAILY #14 tab 07/05/20 lidocaine HCl [Lidocaine Viscous] 1 appl MUCOUS MEMBRANE BID PRN 07/05/20 #100 ml <HENRY Palmer - Last Filed: 07/05/20 16:46> Allergies/adverse reactions: Allergies Allergy/AdvReac Type Severity Reaction Status Date / Time lisinopril [LISINOPRIL] Allergy Severe ANAPYHLAXIS, Verified 07/06/20 14:43 swelling metformin [METFORMIN] Allergy Severe ANAPHYLAXIS, Verified 07/06/20 14:43 diarrhea sumatriptan [From IMITREX] Allergy Severe ANAPHYLAXIS, Verified 07/06/20 14:43 sedation <HENRY Palmer - Last Filed: 07/05/20 16:46> Review of Systems Review of Systems: Constitutional: No Fever, No Chills, No Fatigue, No Malaise ENT/Mouth: + Hoarseness, + sore throat, No Rhinorrhea, + Swallowing Difficulty Cardiovascular: No Chest Pain, No SOB, No Palpitations Respiratory: No Cough, No Sputum, No Wheezing Gastrointestinal: + Nausea, No Vomiting, No Abdominal pain Genitourinary: No Dysuria, No Urinary Frequency, No Hematuria, Musculoskeletal: No joint pain, No Myalgias, No Joint Swelling Skin: No Skin Lesions, No rash Neuro: No Weakness, No Numbness <HENRY Palmer - Last Filed: 07/05/20 16:46> Yes all other systems are reviewed and are negative <HENRY Palmer - Last Filed: 07/05/20 16:46> [facility] Past Medical History Attestation statement: The following information was validated with the patient. <HENRY Palmer Last Filed: 07/05/20 16:46> Medical History: Medical History Allergic rhinitis Anal fissure Anxiety Arthritis B12 deficiency Chronic pain syndrome Constipation Costochondritis Diabetes mellitus Dyslipidemia EKG abnormalities Gastroparesis GERD (gastroesophageal reflux disease) Hepatitis A Hepatitis B Hepatomegaly Hypoglycemia after GI (gastrointestinal) surgery Insomnia Leukocytosis Lumbar degenerative disc disease Migraine Obesity (BMI 30-39.9) Occipital neuralgia of left side MIO on CPAP Proteinuria Pure hypercholesterolemia Recurrent chest pain Renal stones Shoulder pain, left Sinusitis Spondylosis of cervical spine without myelopathy 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 Upper abdominal pain Vitamin D deficiency <HENRY Palmer - Last Filed: 07/05/20 16:46> Surgical History: Surgical History H/O gastric bypass History of esophagogastroduodenoscopy (EGD) History of tubal ligation History of umbilical hernia Hx of bilateral breast reduction surgery Hx of section Hx of cholecystectomy Hx of lithotripsy <HENRY Palmer - Last Filed: 07/05/20 16:46> Family History Family History: Family History Father Liver cancer Hypertension Diabetes mellitus CVD (cardiovascular disease) Liver failure Mother Hypercholesterolemia Breast cancer Asthma Depression Maternal Grandmother Diabetes mellitus Hypertension Paternal Grandmother Diabetes mellitus Hypertension <HENRY Palmer - Last Filed: 07/05/20 16:46> Social History Social History: Social History Household Members: None Alcohol intake: never Smoking Status: Never smoker Smoked in Last 30 Days: No Advance Directives: No Advance Directives Information Provided: No <HENRY Palmer - Last Filed: 07/05/20 16:46> Physical Exam Vital Signs: Vital Signs: Last Vital Signs Temp 98.8 F 07/05/20 13:59 Pulse 79 07/05/20 13:59 Resp 20 07/05/20 13:59 BP 117/66 07/05/20 13:59 Pulse Ox 98 07/05/20 13:59 Body Mass Index 28.4 <HENRY Palmer - Last Filed: 07/05/20 16:46> Vital Signs: Last Vital Signs Temp 98.8 F 07/05/20 13:59 Pulse 79 07/05/20 13:59 Resp 20 07/05/20 13:59 BP 117/66 07/05/20 13:59 Pulse Ox 98 07/05/20 13:59 Body Mass Index 28.4 <Neftali Amaral MD - Last Filed: 07/13/20 09:34> Const: General: cooperative and healthy appearing <HENRY Palmer - Last Filed: 07/05/20 16:46> Orientation/consciousness: patient oriented x3 <HENRY Palmer - Last Filed: 07/05/20 16:46> Limitations: no limitations <HENRY Palmer - Last Filed: 07/05/20 16:46> HENMT: Other: Slightly muffled voice <HENRY Palmer - Last Filed: 07/05/20 16:46> Head: Yes normal to inspection <HENRY Palmer - Last Filed: 07/05/20 16:46> Ears: hearing grossly normal bilaterally <HENRY Palmer - Last Filed: 07/05/20 16:46> General nose exam: Normal external nose present <HENRY Palmer - Last Filed: 07/05/20 16:46> Face and sinus: Yes normal facial exam <HENRY Palmer - Last Filed: 07/05/20 16:46> Mouth: Normal oral and palatal mucosa present <HENRY Palmer - Last Filed: 07/05/20 16:46> Throat: Yes posterior oropharynx normal, Yes uvula midline and No peritonsillar mass <HENRY Palmer - Last Filed: 07/05/20 16:46> Eyes: General: appearance normal, both eyes and all related structures <Isabel Barrow [facility] Last Filed: 07/05/20 16:46> EOM: EOMs intact bilaterally <Isabel Barrow [facility] Last Filed: 07/05/20 16:46> Neck: Neck: Yes normal visual inspection, Yes supple and No anterior neck swelling <Isabel Barrow [facility] Last Filed: 07/05/20 16:46> Resp: Effort & Inspection: normal respiratory effort, not labored, no stridor and not tachypneic <Isabel Barrow [facility] Last Filed: 07/05/20 16:46> Auscultation: clear to auscultation bilaterally, no rales, no rhonchi and no wheezes <Isabel Barrow [facility] Last Filed: 07/05/20 16:46> Cardio: Rate: regular rate <Isabel Barrow [facility] Last Filed: 07/05/20 16:46> Heart sounds: S1 normal heart sound present and S2 normal heart sound present <Isabel Barrow [facility] Last Filed: 07/05/20 16:46> GI: Inspection: Yes normal to inspection <Isabel Barrow [facility] Last Filed: 07/05/20 16:46> Palpation (GI): Soft to palpation, nontender, no guarding and not rigid <Isabel Barrow [facility] Last Filed: 07/05/20 16:46> Skin: Rashes: no rashes <Isabel Barrow [facility] Last Filed: 07/05/20 16:46> Wounds: no wounds <Isabel Barrow [facility] Last Filed: 07/05/20 16:46> Neuro: General: patient oriented x3 <Isabel Barrow [facility] Last Filed: 07/05/20 16:46> Extrem: General: Yes normal to inspection <Isabel Barrow [facility] Last Filed: 07/05/20 16:46> Course Course Course Narrative: -1st dose of IV glucagon unsuccessful, will try 2nd. XR chest 1V IMPRESSION: No acute cardiopulmonary findings XR soft tissue neck IMPRESSION: Unremarkable examination -1550--On re-evaluation patient now reporting headache and nausea. Reports throat still feels sore, however states foreign body sensation may be improved. Patient tolerated p.o. water with success, no vomiting. Zofran/Fioricet ordered will re-eval and p.o. trial -1640--on re-evaluation patient passed p.o. trial with Brittney and Jeffy bryan. Reports some residual throat discomfort. Will give GI cocktail, some medications to pharmacy and have patient follow-up with GI. Worrisome signs and symptoms discussed. She verbalized understanding feel safe for discharge home <HENRY Palmer - Last Filed: 07/05/20 16:46> I have reviewed the chart <Neftali Amaral MD - Last Filed: 07/13/20 09:34> Medical Decision Making MDM Narrative Medical decision making narrative: 44-year-old female with past medical history of anxiety, arthritis, diabetes, dyslipidemia, hepatitis A/B, MIO on CPAP, renal stones, BIBA complaining of foreign body sensation in throat s/p eating beef steak [employer]. On exam VSS, NAD, slightly hoarse voice, lungs CTA, in no respiratory distress. Concern for food bolus. No signs of respiratory distress/airway obstruction Plan: Neck/CXR x-ray, glucagon, reassess <HENRY Palmer - Last Filed: 07/05/20 16:46> Discharge Plan Discharge Clinical Impression: Bolus impaction of digestive tract <HENRY Palmer - Last Filed: 07/05/20 16:46> Patient Disposition: Home, Self-Care <HENRY Palmer - Last Filed: 07/05/20 16:46> Instructions: Food Impaction (ED) <HENRY Palmer - Last Filed: 07/05/20 16:46> Additional Instructions: Your food impaction was resolved Maalox, Pepcid and viscous lidocaine will help with her symptoms Follow-up with GI outpatient If her symptoms persist or worsen, recur, your unable to eat or drink return to the ED <HENRY Palmer - Last Filed: 07/05/20 16:46> Prescriptions: New famotidine [Pepcid] 20 mg tablet 20 mg PO DAILY Qty: 14 RF: 0 alum-mag hydroxide-simeth [Maalox Advanced] 200-200-20 mg/5 mL suspension 5 ml PO 5XD PRN (Reason: dyspepsia) Qty: 30 RF: 0 Lidocaine Viscous 2 % solution 1 appl mucous membrane BID PRN (Reason: pain) Qty: 100 RF: 0 No Action cyanocobalamin (vitamin B-12) 500 mcg tablet, sublingual 500 mcg sublingual DAILY 30 Days Qty: 30 RF: 11 (DME) blood-glucose meter [FreeStyle Lite Meter] Kit See Rx Instructions .ROUTE .MEDSUPPLY Qty: 1 RF: 0 simethicone 125 mg tablet,chewable 125 mg PO QID Qty: 120 RF: 3 ibuprofen 800 mg tablet 800 mg PO TID PRN (Reason: fever or pain) Qty: 90 RF: 3 topiramate 100 mg tablet 100 mg PO BEDTIME Qty: 90 RF: 1 fluticasone propionate 50 mcg/actuation spray,suspension 1 spray intranasal DAILY Qty: 16 RF: 3 tramadol 50 mg tablet See Rx Instructions .ROUTE .COMPLEX 30 Days Qty: 30 RF: 0 tramadol 50 mg tablet 50 mg PO Q6H PRN (Reason: pain) Qty: 20 RF: 0 (DME) lancets 33 gauge misc See Rx Instructions ea Not Applicable TID Qty: 100 RF: 0 amoxicillin 875 mg tablet 875 mg PO BID 10 Days Qty: 20 RF: 0 cetirizine 10 mg tablet 10 mg PO DAILY Qty: 30 RF: 6 alprazolam 1 mg tablet 1 mg PO TID PRNRF: 0 amitriptyline 25 mg tablet 25 mg PO BEDTIME PRNRF: 0 calcium citrate-vitamin D3 [Calcium Citrate + D] 315 mg-5 mcg (200 unit) tablet 1 tab PO DAILY RF: 0 acarbose 100 mg tablet 100 mg PO TID Qty: 90 RF: 12 (DME) FreeStyle Lite Strips Strip See Rx Instructions .ROUTE .MEDSUPPLY Qty: 100 RF: 12 rosuvastatin [Crestor] 5 mg tablet 5 mg PO DAILY Qty: 30 RF: 12 (DME) lancets [FreeStyle Lancets] 28 gauge misc See Rx Instructions .ROUTE .MEDSUPPLY Qty: 100 RF: 12 alcohol swabs [Alcohol Pads] Pads, Medicated 1 pad topical TID 30 Days Qty: 100 RF: 12 Linzess 290 mcg capsule 290 mcg PO DAILY 30 Days Qty: 30 RF: 6 metoclopramide HCl [Reglan] 10 mg tablet 10 mg PO QIDACHS Qty: 120 RF: 6 <HENRY Palmer - Last Filed: 07/05/20 16:46> Referrals: Evelia Duncan MD [Physician] - 2 days <HENRY Palmer - Last Filed: 07/05/20 16:46> Interventions: ED Discharge Assessment Last Done: 07/05/20 17:21 <HENRY Palmer - Last Filed: 07/05/20 16:46> Discharge Date/Time: 07/05/20 17:21 <HENRY Palmer - Last Filed: 07/05/20 16:46>
[2020-07-05] MEDS: ondansetron HCL 4 MG/2 ML VIAL IVPUSH (16:20)
[2020-07-05] MEDS: Butalb/Acetamin/Caff 50/325/40 TABLET 1 TAB PO (16:20)
[2020-07-05] MEDS: Famotidine/PF 20 MG/2 ML VIAL IVPUSH (17:02)
[2020-07-05] MEDS: Lidocaine HCl Viscous 2 % 15 ML SOLUTION MUCOUS MEM (17:02)
[2020-07-05] MEDS: Magnesium Hydrox/Alum Hydrox 30 ML ORAL.SUSP PO (17:02)
== END 2020-07-05 17:21 | disposition home or self-care (01) ==
PROVIDERS: Emergency Provider Emergency Medicine; PCP Internal Medicine
DX: T18.128A Food in esophagus causing other injury, initial encounter (principal); X58.XXXA Exposure to other specified factors, initial encounter; Y93.9 Activity, unspecified; Y92.010 Kitchen of single-family (private) house as the place of occurrence of the external cause; Y99.9 Unspecified external cause status; E11.9 Type 2 diabetes mellitus without complications; E78.5 Hyperlipidemia, unspecified; Z86.19 Personal history of other infectious and parasitic diseases
CPT/HCPCS: 70360; 71045; 96374; 96375; 96376; 99283; 99284; J1610; J2405

== ENCOUNTER 2020-07-06 09:40 | Outpatient (REF) | payer MEDICARE, MEDICAID, SELFPAY ==
[2020-07-06 10:48] LABS: MANUAL DIFF FLAG NO
[2020-07-06 10:52] LABS: Basophils Percent Auto 0.3 % (0-2); Eosinophils Absolute Auto 0.2 X10*3/uL (0.0-0.4); Hematocrit 36.9 % (37-47); Hemoglobin 11.6 g/dl (12.0-16.0); Imm Gran Abs Auto 0.04 X10*3/uL (0.00-0.03); Imm Gran Pct Auto 0.4 % (0.0-0.4); Lymphocytes Absolute Auto 2.1 X10*3/uL (1.2-4.9); Lymphocytes Percent Auto 21.8 % (20-40); Mean Corpuscular HGB Conc 31.4 g/dl (31.0-35.0); Mean Corpuscular Hemoglobin 26.9 pg (27.0-33.0); Mean Corpuscular Volume 85.6 fL (80-98); Mean Platelet Volume 11.2 fL (9.4-12.3); Monocytes Absolute Auto 0.9 X10*3/uL (0.1-1.2); Monocytes Percent Auto 9.9 % (2-11); Neutrophils Absolute Auto 6.2 X10*3/uL (2.0-8.3); Neutrophils Percent Auto 65.6 % (45-73); Platelet Count 305 X10*3/uL (160-400); Red Blood Count 4.31 X10*6/uL (4.20-5.50); Red Cell Distribution Width 13.8 % (11.0-16.0); White Blood Count 9.5 X10*3/uL (4.8-10.8)
[2020-07-06 10:56] LABS: Glucose Urine UA NEG (NEG); Leukocyte Esterase Urine NEG (NEG); Nitrite Urine NEG (NEG); Specific Gravity - Urine 1.025 (1.005-1.025); Urine Blood NEG (NEG); Urine Ketones 40 MG/DL (NEG); Urine Protein NEG (NEG-TRACE)
[2020-07-06 11:04] LABS: Appearance Urine CLEAR; Color Urine YELLOW
[2020-07-06 11:26] LABS: Alanine Aminotransferase 21 U/L (0-31); Albumin Level 4.4 g/dL (3.5-5.0); Alkaline Phosphatase 66 U/L (39-117); Anion Gap 14 (12-20); Aspartate Amino Transferase 20 U/L (5-31); Bilirubin Total 0.6 mg/dL (0.0-1.0); Blood Urea Nitrogen 16 mg/dL (9-16); C Reactive Protein 0.58 mg/dL (< or = 0.50); Calcium 9.3 mg/dL (8.4-10.2); Carbon Dioxide 21 mmol/L (22-29); Chloride 109 mmol/L (96-108); Cholesterol 107 mg/dL; Creatinine Urine 212.84 mg/dL; Estimated Glomerular Filt Rate > 60; Glucose Fasting 76 mg/dL (60-99); HDL Cholesterol 41 mg/dL; LDL Cholesterol Calculated 49 mg/dl; Microalbum/Creatinine Ratio Ur 6.5 ug/mg cr; Potassium 4.1 mmol/L (3.3-5.1); Sodium 140 mmol/L (135-145); Total Protein 7.5 g/dL (6.5-8.0); Triglycerides 86 mg/dL
[2020-07-06 11:34] LABS: Erythrocyte Sedimentation Rate 26 MM/HR (0-20)
[2020-07-06 11:47] LABS: TSH reflex Free T4 1.21 uIU/mL (0.32-4.0); Vitamin D 25-OH Total 34.2 ng/mL (>30)
[2020-07-06 12:02] LABS: Folate 11.7 ng/mL (> or = 4.0); Vitamin B12 > 2000 pg/mL (200-900)
== END 2020-07-06 09:41 | disposition home or self-care (01) ==
LOC: HO.LAB 09:40
PROVIDERS: PCP Internal Medicine; Visit Provider Internal Medicine
DX: Z00.00 Encounter for general adult medical examination without abnormal findings (principal); M94.0 Chondrocostal junction syndrome [Tietze]; K59.04 Chronic idiopathic constipation; K21.9 Gastro-esophageal reflux disease without esophagitis; E78.00 Pure hypercholesterolemia, unspecified; E11.9 Type 2 diabetes mellitus without complications; E66.9 Obesity, unspecified; E55.9 Vitamin D deficiency, unspecified; E53.8 Deficiency of other specified B group vitamins
CPT/HCPCS: 36415; 80053; 80061; 81003; 82043; 82306; 82607; 82746; 84443; 85025; 85652; 86140

== ENCOUNTER 2020-07-09 20:08 | Emergency (ER) | payer MEDICARE, MEDICAID, SELFPAY ==
[2020-07-09 20:13] VITALS: BP 158/87; PULSE 92; RESP 18; TEMP 37.2; O2SAT 98; BMI 30.9
--- NOTE | 2020-07-09 20:27 | ED.GENADULT ---
HPI - General Adult General Chief complaint: Upper Respiratory Symptoms Stated complaint: FB object in throat Time Seen by Provider: 07/09/20 20:15 Source: patient, family, RN notes reviewed and old records reviewed Mode of arrival: ambulatory Limitations: no limitations History of Present Illness HPI narrative: 44-year-old female here today for complaint of difficulty swallowing. She reports that she feels like something is stuck in her throat. Patient has been seen last Saturday with same. Last visit she reported that she started feeling like this after swallowing a piece of meat. Exam was negative for any foreign body or any soft neck tissue swelling. Patient continues to have symptoms of HE throat and difficulty of swallowing. Patient feels like something is stuck right in her trachea. Patient reports that she is able to eat soft food and swallow them as well as liquids. Patient reports that she has history of sinus and rhinitis. She usually takes Zyrtec and Flonase, however she states that she has not been taking it at all. Symptoms of postnasal like drip. Denies any fever or chills. Denies any SOB with or without exertion. Denies any chest pain. Related Data Home Medications Medication Instructions Recorded Confirmed calcium citrate 315 mg-vitamin D3 1 tab PO DAILY 01/01/20 07/06/20 5 mcg (200 unit) tablet alprazolam 1 mg tablet 1 mg PO TID PRN 02/10/20 07/06/20 amitriptyline 25 mg tablet 25 mg PO BEDTIME PRN tab 04/18/20 07/06/20 lancets 33 gauge #100 ea 04/18/20 07/06/20 Previous Rx's Medication Instructions Recorded acarbose 100 mg tablet 100 mg PO TID #90 tab 01/01/20 alcohol swabs 1 pad TOPICAL TID 30 Days #100 ea 01/01/20 blood sugar diagnostic #100 ea 01/01/20 lancets 28 gauge #100 ea 01/01/20 rosuvastatin 5 mg tablet 5 mg PO DAILY #30 tab 01/01/20 cyanocobalamin (vitamin B-12) 500 500 mcg SUBLINGUAL DAILY 30 Days 01/03/20 mcg sublingual tablet #30 tab blood-glucose meter #1 ea 02/25/20 linaclotide 290 mcg capsule 290 mcg PO DAILY 30 Days #30 cap 02/29/20 metoclopramide HCl 10 mg tablet 10 mg PO QIDACHS #120 tab 02/29/20 simethicone 125 mg chewable tablet 125 mg PO QID #120 ea 03/07/20 ibuprofen 800 mg tablet 800 mg PO TID PRN #90 tab 03/22/20 topiramate 100 mg tablet 100 mg PO BEDTIME #90 tab 04/19/20 amoxicillin 875 mg tablet 875 mg PO BID 10 Days #20 tab 05/23/20 cetirizine 10 mg tablet 10 mg PO DAILY #30 tab 05/23/20 fluticasone propionate 50 1 spray INTRANASAL DAILY #16 ml 06/07/20 mcg/actuation nasal spray,suspension tramadol 50 mg tablet See Rx Instructions .ROUTE 06/13/20 .COMPLEX 30 Days #30 tab tramadol 50 mg PO Q6H PRN #20 tab 07/04/20 alum-mag hydroxide-simeth [Maalox 5 ml PO 5XD PRN #30 ml 07/05/20 Advanced] famotidine [Pepcid] 20 mg PO DAILY #14 tab 07/05/20 lidocaine HCl [Lidocaine Viscous] 1 appl MUCOUS MEMBRANE BID PRN 07/05/20 #100 ml Allergies Allergy/AdvReac Type Severity Reaction Status Date / Time lisinopril [LISINOPRIL] Allergy Severe ANAPYHLAXIS, Verified 07/06/20 14:43 swelling metformin [METFORMIN] Allergy Severe ANAPHYLAXIS, Verified 07/06/20 14:43 diarrhea sumatriptan [From IMITREX] Allergy Severe ANAPHYLAXIS, Verified 07/06/20 14:43 sedation Review of Systems Review of Systems: Constitutional : No Weight loss, No Fever, No Chills, No Night Sweats, No Fatigue, No Malaise ENT/Mouth : No Hearing loss, No Ear Pain, No Nasal Congestion, No Sinus Pain, No Hoarseness, No sore throat, No Rhinorrhea, No Swallowing Difficulty Eyes: No Eye Pain, No Swelling, No Redness, No Foreign Body, No Discharge, No Vision Changes Cardiovascular : No Chest Pain, No SOB, No Dyspnea on Exertion, No Orthopnea, No Edema, No Palpitations Respiratory : No Cough, No Sputum, No Wheezing, No Smoke Exposure, No Dyspnea Gastrointestinal : No Nausea, No Vomiting, No Diarrhea, No Constipation, No abdominal Pain, No Hematochezia, No Melena Genitourinary : no irregular bleeding, No Dysuria, No Urinary Frequency, No Hematuria, No Urinary Incontinence, No Urgency, No Flank Pain, No Urinary Flow Changes, No Hesitancy Musculoskeletal : No joint pain, No Myalgias, No Joint Swelling Skin : No Skin Lesions, No rash Neuro : No Weakness, No Numbness, No Paresthesias, No Loss of Consciousness, No Dizziness, No Headache Psych : No Anxiety/Panic, No Depression, No SI/HI/AH/VH, No Social Issues, Heme/Lymph: No Bruising, No Bleeding,No Lymphadenopathy Endocrine : No Polyuria, No Polydipsia, No Temperature Intolerance Yes all other systems are reviewed and are negative [facility] Past Medical History Medical History Allergic rhinitis Anal fissure Anxiety Arthritis B12 deficiency Chronic pain syndrome Constipation Costochondritis Diabetes mellitus Dyslipidemia EKG abnormalities Gastroparesis GERD (gastroesophageal reflux disease) Hepatitis A Hepatitis B Hepatomegaly Hypoglycemia after GI (gastrointestinal) surgery Insomnia Leukocytosis Lumbar degenerative disc disease Migraine Obesity (BMI 30-39.9) Occipital neuralgia of left side MIO on CPAP Proteinuria Pure hypercholesterolemia Recurrent chest pain Renal stones Shoulder pain, left Sinusitis Spondylosis of cervical spine without myelopathy 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 Upper abdominal pain Vitamin D deficiency Surgical History H/O gastric bypass History of esophagogastroduodenoscopy (EGD) History of tubal ligation History of umbilical hernia Hx of bilateral breast reduction surgery Hx of section Hx of cholecystectomy Hx of lithotripsy Family History Family History Father Liver cancer Hypertension Diabetes mellitus CVD (cardiovascular disease) Liver failure Mother Hypercholesterolemia Breast cancer Asthma Depression Maternal Grandmother Diabetes mellitus Hypertension Paternal Grandmother Diabetes mellitus Hypertension Social History Social History Household Members: None Alcohol intake: never Smoking Status: Never smoker Smoked in Last 30 Days: No Advance Directives: No Advance Directives Information Provided: No Physical Exam Vital Signs: Vital Signs: Last Vital Signs Temp 98.4 F 07/09/20 22:00 Pulse 68 07/09/20 22:00 Resp 16 07/09/20 22:00 BP 121/73 07/09/20 22:00 Pulse Ox 99 07/09/20 22:00 Body Mass Index 30.9 Const: General: cooperative, healthy appearing and comfortable Nutritional Appearance: average body habitus Orientation/consciousness: patient oriented x3 Limitations: no limitations HENMT: Head: Yes normal to inspection Ears: hearing grossly normal bilaterally General nose exam: Normal external nose present Face and sinus: Yes normal facial exam Mouth: Normal oral and palatal mucosa present Throat: Yes posterior oropharynx normal Eyes: General: appearance normal, both eyes and all related structures Eyelids: Yes eyelids normal Conjunctivae: conjunctivae normal Sclerae: sclerae normal Pupils: Equal, round and reactive pupils present Neck: Neck: Yes normal visual inspection, Yes full ROM, Yes no lymphadenopathy, Yes trachea midline and Yes supple Thyroid: Thyroid normal Lymphatic: no lymphadenopathy noted Chest: Chest palpation & inspection: normal inspection of the chest Resp: Effort & Inspection: normal respiratory effort and able to speak in complete sentences Auscultation: clear to auscultation bilaterally Cardio: Jugular venous distension: no JVD Rate: regular rate Rhythm: regular rhythm Heart sounds: S1 normal heart sound present, S2 normal heart sound present, no gallops, no murmurs and no rubs Peripheral pulses: Peripheral pulses 2+ throughout GI: Inspection: Yes normal to inspection and No distended Palpation (GI): No hepatosplenomegaly present and No Rebound tenderness present Percussion: Yes normal to percussion Auscultation: normal bowel sounds Back/Spine/Pelvis: Cervical Spine: cervical ROM normal and No cervical muscular tenderness Thoracic/Lumbar Spine: thoracic and lumbar spine normal to inspection Skin: General skin exam: no rashes or lesions noted, elasticity normal and turgor normal Neuro: General: patient oriented x3 Cranial nerves: Yes Equal, round and reactive pupils present Extrem: General: Yes normal to inspection, Yes full ROM and Yes capillary refill normal Psych: Appearance: grossly normal Mental Status: mental status grossly normal Speech and movement: Normal speech and movement present Affect: normal affect Attitude: cooperative Thought process: Normal thought process present Insight: Good insight present (Psych) Course Course Course Narrative: Patient here today with difficulty swallowing. Constantly clearing her throat. Able to tolerate soft food as well as water at home. Patient appears to be very anxious holding her throat well she is swallowing. Difficult to assess her posterior pharynx as she is is afraid to open her mouth. Patient tried drinking water without any difficulties. Denies odynophagia or dysphagia. Patient able to swallow without aspiration, coughing. Lung sounds clear, negative for wheeze. Physical exam negative for any abnormalities. Patient will be medicated with lorazepam. Reevaluation(s) Reevaluation #1: Patient tolerated fluids. Feeling better after the lorazepam. Patient takes benzos at home couple times a day. She also has history of sinusitis and rhinitis in the past. Patient has scripts for Zyrtec and Flonase, however she has not been taking that yet. I discussed with her that it is allergy season and most likely her symptoms are related to allergies. Patient was educated to take her Zyrtec and Flonase and follow-up with her PCP. Patient was instructed that if her symptoms continue despite taking her allergy medications she should follow-up with her PCP for possible barium swallow with her gastroenterology Discharge Plan Discharge Clinical Impression: Difficulty swallowing Patient Disposition: Home, Self-Care Instructions: Dysphagia (ED) Additional Instructions: You were seen here today for difficulty of swallowing. Your exam was negative for any obstructions. We were able to swallow some fluids. Please follow-up with your gastroenterology for possible barium swallow with speech therapy. Follow-up with your PCP in 2-3 days. If you have sinus like symptoms and postnasal drip you may take oral antihistamines. Please continue taking your prescribed oral antihistamine and your Flonase. 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 Please return if you symptoms worsen or if you will develop any other concerning symptoms Prescriptions: No Action cyanocobalamin (vitamin B-12) 500 mcg tablet, sublingual 500 mcg sublingual DAILY 30 Days Qty: 30 RF: 11 (DME) blood-glucose meter [FreeStyle Lite Meter] Kit See Rx Instructions .ROUTE .MEDSUPPLY Qty: 1 RF: 0 simethicone 125 mg tablet,chewable 125 mg PO QID Qty: 120 RF: 3 ibuprofen 800 mg tablet 800 mg PO TID PRN (Reason: fever or pain) Qty: 90 RF: 3 topiramate 100 mg tablet 100 mg PO BEDTIME Qty: 90 RF: 1 fluticasone propionate 50 mcg/actuation spray,suspension 1 spray intranasal DAILY Qty: 16 RF: 3 tramadol 50 mg tablet See Rx Instructions .ROUTE .COMPLEX 30 Days Qty: 30 RF: 0 tramadol 50 mg tablet 50 mg PO Q6H PRN (Reason: pain) Qty: 20 RF: 0 famotidine [Pepcid] 20 mg tablet 20 mg PO DAILY Qty: 14 RF: 0 alum-mag hydroxide-simeth [Maalox Advanced] 200-200-20 mg/5 mL suspension 5 ml PO 5XD PRN (Reason: dyspepsia) Qty: 30 RF: 0 Lidocaine Viscous 2 % solution 1 appl mucous membrane BID PRN (Reason: pain) Qty: 100 RF: 0 (DME) lancets 33 gauge misc See Rx Instructions ea Not Applicable TID Qty: 100 RF: 0 amoxicillin 875 mg tablet 875 mg PO BID 10 Days Qty: 20 RF: 0 cetirizine 10 mg tablet 10 mg PO DAILY Qty: 30 RF: 6 alprazolam 1 mg tablet 1 mg PO TID PRNRF: 0 amitriptyline 25 mg tablet 25 mg PO BEDTIME PRNRF: 0 calcium citrate-vitamin D3 [Calcium Citrate + D] 315 mg-5 mcg (200 unit) tablet 1 tab PO DAILY RF: 0 acarbose 100 mg tablet 100 mg PO TID Qty: 90 RF: 12 (DME) FreeStyle Lite Strips Strip See Rx Instructions .ROUTE .MEDSUPPLY Qty: 100 RF: 12 rosuvastatin [Crestor] 5 mg tablet 5 mg PO DAILY Qty: 30 RF: 12 (DME) lancets [FreeStyle Lancets] 28 gauge misc See Rx Instructions .ROUTE .MEDSUPPLY Qty: 100 RF: 12 alcohol swabs [Alcohol Pads] Pads, Medicated 1 pad topical TID 30 Days Qty: 100 RF: 12 Linzess 290 mcg capsule 290 mcg PO DAILY 30 Days Qty: 30 RF: 6 metoclopramide HCl [Reglan] 10 mg tablet 10 mg PO QIDACHS Qty: 120 RF: 6 Interventions: ED Discharge Assessment Last Done: 07/09/20 22:22 Discharge Date/Time: 07/09/20 22:30
[2020-07-09] MEDS: LORazepam 1 MG TABLET PO (20:35)
[2020-07-09 22:00] VITALS: BP 121/73; PULSE 68; RESP 16; TEMP 36.9; O2SAT 99
== END 2020-07-09 22:30 | disposition home or self-care (01) ==
PROVIDERS: Emergency Provider Emergency Medicine Emergency Medical Services; PCP Internal Medicine
DX: R13.10 Dysphagia, unspecified (principal); R09.89 Other specified symptoms and signs involving the circulatory and respiratory systems; F41.9 Anxiety disorder, unspecified; E11.9 Type 2 diabetes mellitus without complications; E78.5 Hyperlipidemia, unspecified; Z79.899 Other long term (current) drug therapy; Z79.02 Long term (current) use of antithrombotics/antiplatelets
CPT/HCPCS: 99283; 99284

== ENCOUNTER → 2020-08-22 10:26 | Outpatient (BNVA) | payer MEDICARE, MEDICAID, SELFPAY | PROVIDERS: PCP Internal Medicine; Visit Provider Internal Medicine Cardiovascular Disease | DX: M94.0 Chondrocostal junction syndrome [Tietze] (principal); R07.9 Chest pain, unspecified | CPT/HCPCS: 99212 ==

== ENCOUNTER 2020-08-26 11:24 | Emergency (ER) | payer MEDICARE, MEDICAID, SELFPAY ==
--- NOTE | ~2020-08-26 | CT_ITS ---
EXAMINATION: CT ABDOMEN AND PELVIS WITHOUT CONTRAST CLINICAL INFORMATION: Left flank pain and dysuria COMPARISON: Previous CT of the abdomen and pelvis most recent June 2020 TECHNIQUE: Multidetector volumetric imaging was performed from the superior aspect of the liver through the pubic symphysis. Sagittal and coronal reformatted images were obtained on the technologist's workstation. This CT examination was performed using dose optimization techniques as appropriate, variously including the following: *Automated exposure control *Adjustment of mA and/or kV according to patient size (this includes techniques or standardized protocols for targeted exams where dose is matched to indication/reason for exam; i.e. extremities or head) *Use of iterative reconstruction technique DLP: 552 mGy-cm FINDINGS: LUNG BASES: The visualized lung bases are unremarkable. LIVER, GALLBLADDER, AND BILIARY TREE: The liver is normal in size, shape, and attenuation. No focal hepatic lesion or biliary ductal dilatation is present. The gallbladder has been removed. PANCREAS: Unremarkable. SPLEEN: Unremarkable. ADRENAL GLANDS: Unremarkable. KIDNEYS AND URETERS: There are 2 small stones seen in the upper pole of the left kidney, largest measuring 2 mm. BLADDER: Unremarkable. GASTROINTESTINAL TRACT: There are postsurgical changes following gastric bypass. There is stool throughout the colon questionable for constipation. Small and large bowel is otherwise unremarkable. The appendix is unremarkable. ABDOMINAL WALL: There is evidence of previous umbilical hernia repair with mesh. LYMPH NODES: Normal. VASCULAR: Unremarkable. PELVIC VISCERA: The uterus and ovaries are unremarkable. There is a small amount of fluid in the pelvis. OSSEOUS STRUCTURES: There is degenerative disc disease at L5-S1. CT/CT abdomen pelvis wo con IMPRESSION: 2 small nonobstructing left upper pole renal stones similar to previous exam. Postsurgical changes following gastric bypass. Stool throughout the colon questionable for constipation
[2020-08-26 12:42] VITALS: BP 118/71; PULSE 68; RESP 18; TEMP 37; O2SAT 97; BMI 32.2
[2020-08-26 14:53] LABS: Glucose Urine UA NEG (NEG); Leukocyte Esterase Urine NEG (NEG); Nitrite Urine NEG (NEG); Urine Blood NEG (NEG); Urine Ketones NEG (NEG); Urine Protein NEG (NEG-TRACE)
[2020-08-26 14:56] LABS: Appearance Urine CLEAR; Color Urine YELLOW; UPreg QC Valid YES; Urine Pregnancy NEGATIVE (NEGATIVE)
--- NOTE | 2020-08-26 15:33 | ED_ITS ---
HPI - Abdominal Pain General Chief Complaint: Abdominal Pain Stated Complaint: QUEST UTI Time Seen by Provider: 08/26/20 14:52 Source: patient Mode of arrival: ambulatory Limitations: language barrier (Haitian-speaking) History of Present Illness HPI narrative: 44-year-old female with a past medical history of kidney stones, diabetes, dyslipidemia/Hypercholesteremia, obesity, GERD, chronic idiopathic constipation and multiple other comorbidities presenting to the ED with complaints of left back/flank pain/left lower quadrant abdominal pain with associated dysuria for the past month worse this week. Denies any fevers, chest pain, shortness of breath, nausea/vomiting, hematuria, vaginal bleeding, abnormal vaginal discharge, diarrhea or constipation or any other symptoms complaints or concerns at this time. MD elicited complaint: abdominal pain and flank pain Pertinent past history: kidney stones Onset (ago): month(s) (1 month worse this week) Pain Consistency: constant Location: LLQ, L flank and other (left back) Severity: moderate Quality: aching and fullness Radiation: none Migration to: no migration Exacerbating factors: nothing Relieving factors: nothing Associated symptoms: dysuria Related Data Home Medications Medication Instructions Recorded Confirmed calcium citrate 315 mg-vitamin D3 1 tab PO DAILY 01/01/20 07/06/20 5 mcg (200 unit) tablet alprazolam 1 mg tablet 1 mg PO TID PRN 02/10/20 07/06/20 amitriptyline 25 mg tablet 25 mg PO BEDTIME PRN tab 04/18/20 07/06/20 lancets 33 gauge #100 ea 04/18/20 07/06/20 Previous Rx's Medication Instructions Recorded acarbose 100 mg tablet 100 mg PO TID #90 tab 01/01/20 alcohol swabs 1 pad TOPICAL TID 30 Days #100 ea 01/01/20 blood sugar diagnostic #100 ea 01/01/20 lancets 28 gauge #100 ea 01/01/20 rosuvastatin 5 mg tablet 5 mg PO DAILY #30 tab 01/01/20 cyanocobalamin (vitamin B-12) 500 500 mcg SUBLINGUAL DAILY 30 Days 01/03/20 mcg sublingual tablet #30 tab blood-glucose meter #1 ea 02/25/20 linaclotide 290 mcg capsule 290 mcg PO DAILY 30 Days #30 cap 02/29/20 metoclopramide HCl 10 mg tablet 10 mg PO QIDACHS #120 tab 02/29/20 simethicone 125 mg chewable tablet 125 mg PO QID #120 ea 03/07/20 amoxicillin 875 mg tablet 875 mg PO BID 10 Days #20 tab 05/23/20 cetirizine 10 mg tablet 10 mg PO DAILY #30 tab 05/23/20 fluticasone propionate 50 1 spray INTRANASAL DAILY #16 ml 06/07/20 mcg/actuation nasal spray,suspension alum-mag hydroxide-simeth [Maalox 5 ml PO 5XD PRN #30 ml 07/05/20 Advanced] famotidine [Pepcid] 20 mg PO DAILY #14 tab 07/05/20 lidocaine HCl [Lidocaine Viscous] 1 appl MUCOUS MEMBRANE BID PRN 07/05/20 #100 ml omeprazole 20 mg capsule,delayed 20 mg PO QAM #90 cap 07/19/20 release ibuprofen 800 mg tablet 800 mg PO TID PRN #90 tab 07/27/20 topiramate 100 mg tablet 100 mg PO BEDTIME #90 tab 07/27/20 tramadol 50 mg tablet 50 mg PO Q6H PRN #20 tab 07/27/20 tramadol 50 mg tablet See Rx Instructions .ROUTE 08/18/20 .COMPLEX 30 Days #30 tab Allergies Allergy/AdvReac Type Severity Reaction Status Date / Time lisinopril [LISINOPRIL] Allergy Severe ANAPYHLAXIS, Verified 08/26/20 12:42 swelling metformin [METFORMIN] Allergy Severe ANAPHYLAXIS, Verified 08/26/20 12:42 diarrhea sumatriptan [From IMITREX] Allergy Severe ANAPHYLAXIS, Verified 08/26/20 12:42 sedation Review of Systems Review of Systems Constitutional : No Weight loss, No Fever, No Chills, No Night Sweats, No Fatigue, NoMalaise ENT/Mouth: No ear pain, No sore throat, No Difficulty swallowing Cardiovascular : No Chest Pain, No SOB, No Dyspnea on Exertion, No Orthopnea, NoEdema, No Palpitations Respiratory : No Cough, No Sputum, No Wheezing, No Dyspnea Gastrointestinal : Positive abdominal pain, No Nausea, No Vomiting, No Diarrhea, No blood streaked emesis, No coffee-ground emesis, No gross hematemesis, No blood streak stool, No gross hematochezia, No Melena Genitourinary : Positive dysuria, No irregular bleeding, No Urinary Frequency, No Hematuria,No Urinary Incontinence, No Urgency, No Flank Pain Musculoskeletal : No joint pain, No Myalgias, No Joint Swelling Skin : No Skin Lesions, No rash Neuro : No Weakness, No Numbness, No Paresthesias, No Loss of Consciousness, NoDizziness, No Headache Psych : No Social Issues, Heme/Lymph: No Bruising, No Bleeding,No Lymphadenopathy Endocrine : No Polyuria, No Polydipsia, No Temperature Intolerance Yes all other systems are reviewed and are negative Physical Exam Vital Signs: Vital Signs: Last Vital Signs Temp 98.6 F 08/26/20 12:42 Pulse 68 08/26/20 12:42 Resp 18 08/26/20 12:42 BP 118/71 08/26/20 12:42 Pulse Ox 97 08/26/20 12:42 Body Mass Index 32.2 vital signs have been reviewed as normal and appeared to be correct. Blood pressure normal. Heart rate normal. Respiration rate normal. Temperature normal. Oxygen saturation normal. Appearance: Alert. Oriented X3. No acute distress. Head: Normal external exam. Normocephalic. Eyes: PERRLA. EOMI. Conjunctiva and sclera normal. Eyelids normal. ENT: Pharynx normal. Uvula midline. Moist mucous membranes. Neck: Normal inspection. Neck supple. FROM. No adenopathy. No meningeal signs. CVS: Normal heart rate and rhythm. Heart sound normal. No murmurs noted. Pulses normal throughout. Respiratory: No respiratory distress. Painless inspiration. Breath sounds normal. No wheezes/rales/rhonchi noted. Chest nontender. No accessory muscle usage noted or decreased air movement noted. Abdomen: Soft and mild tenderness to palpation to left flank/left lower quadrant. Nondistended. No guarding. No rigidity. Bowel sounds normal in all 4 quadrants. No distention noted. No organomegaly noted. No visible injury noted. No rebound tenderness. Negative Rovsing sign. Negative obturator's sign. Negative psoas sign. Negative Burt sign. Back: positive left CVA tenderness. No Right CVA tenderness. Full range of motion noted. Skin: Skin warm and dry. Normal skin color. Normal skin turgor. No rashes/lesions/lacerations noted. Extremities: Extremities exhibit normal range of motion. Extremities nontender. Neuro: Oriented X 3. No motor deficit. No sensory deficit. Reflexes normal. Normal steady gait. Course Course Course Narrative: 15:15pm - 44-year-old female with a past medical history of kidney stones, diabetes, dyslipidemia/Hypercholesteremia, obesity, GERD, chronic idiopathic constipation and multiple other comorbidities presenting to the ED with complaints of left back/flank pain/left lower quadrant abdominal pain with associated dysuria for the past month worse this week. Plan: Labs, UA, CT scan of abdomen and pelvis without IV contrast. Provide a L of IV fluids and re-evaluate. MDM - Abdominal Pain Medical Records Attestation: I reviewed the patient's medical records. Lab Data Attestation: I reviewed the patient's lab results. Labs: Lab Results 08/26/20 08/26/20 Range/Units 14:41 14:41 Urine Color YELLOW Urine Appearance CLEAR Urine pH 6.0 (5.0-8.0) Ur Specific [place] 1.020 (1.005-1.025) Urine Protein NEG (NEG-TRACE) MG/DL Urine Glucose (UA) NEG (NEG) MG/DL Urine Ketones NEG (NEG) MG/DL Urine Blood NEG (NEG) Urine Nitrite NEG (NEG) Ur Leukocyte Esterase NEG (NEG) Urine Test NEGATIVE (NEGATIVE) Imaging Data CT scan abdomen pelvis without contrast: Attestation: I personally reviewed and interpreted this imaging study as follows: Discharge Plan Discharge Prescriptions: No Action cyanocobalamin (vitamin B-12) 500 mcg tablet, sublingual 500 mcg sublingual DAILY 30 Days Qty: 30 RF: 11 (DME) blood-glucose meter [FreeStyle Lite Meter] Kit See Rx Instructions .ROUTE .MEDSUPPLY Qty: 1 RF: 0 simethicone 125 mg tablet,chewable 125 mg PO QID Qty: 120 RF: 3 fluticasone propionate 50 mcg/actuation spray,suspension 1 spray intranasal DAILY Qty: 16 RF: 3 omeprazole 20 mg capsule,delayed release(DR/EC) 20 mg PO QAM Qty: 90 RF: 3 ibuprofen 800 mg tablet 800 mg PO TID PRN (Reason: fever or pain) Qty: 90 RF: 3 topiramate 100 mg tablet 100 mg PO BEDTIME Qty: 90 RF: 1 tramadol 50 mg tablet 50 mg PO Q6H PRN (Reason: pain) Qty: 20 RF: 0 tramadol 50 mg tablet See Rx Instructions .ROUTE .COMPLEX 30 Days Qty: 30 RF: 0 famotidine [Pepcid] 20 mg tablet 20 mg PO DAILY Qty: 14 RF: 0 alum-mag hydroxide-simeth [Maalox Advanced] 200-200-20 mg/5 mL suspension 5 ml PO 5XD PRN (Reason: dyspepsia) Qty: 30 RF: 0 Lidocaine Viscous 2 % solution 1 appl mucous membrane BID PRN (Reason: pain) Qty: 100 RF: 0 (DME) lancets 33 gauge misc See Rx Instructions ea Not Applicable TID Qty: 100 RF: 0 amoxicillin 875 mg tablet 875 mg PO BID 10 Days Qty: 20 RF: 0 cetirizine 10 mg tablet 10 mg PO DAILY Qty: 30 RF: 6 alprazolam 1 mg tablet 1 mg PO TID PRNRF: 0 amitriptyline 25 mg tablet 25 mg PO BEDTIME PRNRF: 0 calcium citrate-vitamin D3 [Calcium Citrate + D] 315 mg-5 mcg (200 unit) tablet 1 tab PO DAILY RF: 0 acarbose 100 mg tablet 100 mg PO TID Qty: 90 RF: 12 (DME) FreeStyle Lite Strips Strip See Rx Instructions .ROUTE .MEDSUPPLY Qty: 100 RF: 12 rosuvastatin [Crestor] 5 mg tablet 5 mg PO DAILY Qty: 30 RF: 12 (DME) lancets [FreeStyle Lancets] 28 gauge misc See Rx Instructions .ROUTE .MEDSUPPLY Qty: 100 RF: 12 alcohol swabs [Alcohol Pads] Pads, Medicated 1 pad topical TID 30 Days Qty: 100 RF: 12 Linzess 290 mcg capsule 290 mcg PO DAILY 30 Days Qty: 30 RF: 6 metoclopramide HCl [Reglan] 10 mg tablet 10 mg PO QIDACHS Qty: 120 RF: 6 PMFSH Past Medical History Attestation statement: The following information was validated with the patient. Medical History Allergic rhinitis Anal fissure Anxiety Arthritis B12 deficiency Chronic pain syndrome Constipation Costochondritis Diabetes mellitus Dyslipidemia EKG abnormalities Gastroparesis GERD (gastroesophageal reflux disease) Hepatitis A Hepatitis B Hepatomegaly Hypoglycemia after GI (gastrointestinal) surgery Insomnia Leukocytosis Lumbar degenerative disc disease Migraine Obesity (BMI 30-39.9) Occipital neuralgia of left side MIO on CPAP Proteinuria Pure hypercholesterolemia Recurrent chest pain Renal stones Shoulder pain, left Sinusitis Spondylosis of cervical spine without myelopathy 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 Upper abdominal pain Vitamin D deficiency Surgical History H/O gastric bypass History of esophagogastroduodenoscopy (EGD) History of tubal ligation History of umbilical hernia Hx of bilateral breast reduction surgery Hx of section Hx of cholecystectomy Hx of lithotripsy Family History Family History Father Liver cancer Hypertension Diabetes mellitus CVD (cardiovascular disease) Liver failure Mother Hypercholesterolemia Breast cancer Asthma Depression Maternal Grandmother Diabetes mellitus Hypertension Paternal Grandmother Diabetes mellitus Hypertension Social History Social History Household Members: None Alcohol intake: never Patient Tobacco Use Status: Never used Tobacco Advance Directives: No Advance Directives Information Provided: Yes Patient : No
[2020-08-26 15:54] LABS: Glucose, Whole Blood 113 mg/dL (60-115)
[2020-08-26 16:09] LABS: MANUAL DIFF FLAG NO
[2020-08-26] MEDS: 0.9 % Sodium Chloride 1,000 ML 999 ML IVCONT (16:09)
[2020-08-26 16:10] LABS: Basophils Absolute Auto 0.1 X10*3/uL (0.0-0.2); Basophils Percent Auto 0.8 % (0-2); Eosinophils Absolute Auto 0.3 X10*3/uL (0.0-0.4); Eosinophils Percent Auto 2.3 % (0-4); Hematocrit 38.4 % (37-47); Hemoglobin 12.1 g/dl (12.0-16.0); Imm Gran Abs Auto 0.04 X10*3/uL (0.00-0.03); Imm Gran Pct Auto 0.4 % (0.0-0.4); Lymphocytes Absolute Auto 3.5 X10*3/uL (1.2-4.9); Lymphocytes Percent Auto 32.7 % (20-40); Mean Corpuscular HGB Conc 31.5 g/dl (31.0-35.0); Mean Corpuscular Hemoglobin 26.7 pg (27.0-33.0); Mean Corpuscular Volume 84.6 fL (80-98); Mean Platelet Volume 10.3 fL (9.4-12.3); Monocytes Absolute Auto 0.9 X10*3/uL (0.1-1.2); Monocytes Percent Auto 8.3 % (2-11); Neutrophils Absolute Auto 5.9 X10*3/uL (2.0-8.3); Neutrophils Percent Auto 55.5 % (45-73); Platelet Count 372 X10*3/uL (160-400); Red Blood Count 4.54 X10*6/uL (4.20-5.50); White Blood Count 10.7 X10*3/uL (4.8-10.8)
[2020-08-26 16:16] LABS: INTERNATIONAL NORM RATIO 1.1 (0.9-1.1); Prothrombin Time 12.9 SEC (10.8-13.0)
[2020-08-26 16:42] LABS: Alanine Aminotransferase 11 U/L (0-31); Albumin Level 4.8 g/dL (3.5-5.0); Alkaline Phosphatase 75 U/L (39-117); Anion Gap 13 (12-20); Aspartate Amino Transferase 20 U/L (5-31); Bilirubin Total 0.3 mg/dL (0.0-1.0); Blood Urea Nitrogen 14 mg/dL (9-16); Calcium 9.8 mg/dL (8.4-10.2); Carbon Dioxide 24 mmol/L (22-29); Chloride 109 mmol/L (96-108); Creatinine Clr Calc Pharmacy 70.5; Estimated Glomerular Filt Rate > 60; Glucose Random 106 mg/dL (60-115); Potassium 4.7 mmol/L (3.3-5.1); Sodium 141 mmol/L (135-145); Total Protein 8.4 g/dL (6.5-8.0)
[2020-08-26 16:51] VITALS: BP 121/73; PULSE 61; RESP 16; TEMP 36.7; O2SAT 99
== END 2020-08-26 17:48 | disposition home or self-care (01) ==
PROVIDERS: Physician Assistant Medical; Emergency Provider Emergency Medicine; PCP Internal Medicine
DX: N20.0 Calculus of kidney (principal); K59.00 Constipation, unspecified; R30.0 Dysuria; E11.9 Type 2 diabetes mellitus without complications; Z98.84 Bariatric surgery status
CPT/HCPCS: 36415; 74176; 80053; 81003; 81025; 82947; 85025; 85610; 96360; 99284

== ENCOUNTER 2020-09-28 12:09 | Emergency (ER) | payer MEDICARE, MEDICAID, SELFPAY ==
--- NOTE | 2020-09-28 | ECG_ITS ---
Test Reason : CHEST PAIN Blood Pressure : / mmHG Vent. Rate : 076 BPM Atrial Rate : 076 BPM P-R Int : 152 ms QRS Dur : 088 ms QT Int : 402 ms P-R-T Axes : 055 018 018 degrees QTc Int : 452 ms Normal sinus rhythm Normal ECG When compared with ECG of 05-APR-2020 15:39, No significant change was found Referred By: Generic ED Physician Electronically Signed By:Wai Zavala
--- NOTE | ~2020-09-28 | XR_ITS ---
EXAMINATION: XR CHEST CLINICAL INFORMATION: Chest pain. COMPARISON: None TECHNIQUE: Frontal view of the chest was obtained. FINDINGS: No significant abnormality is noted involving the heart, lungs, mediastinum, bony thorax or soft tissues. XR/XR chest 1V IMPRESSION: Unremarkable chest examination.
[2020-09-28 12:30] VITALS: BP 142/77; PULSE 80; RESP 18; TEMP 36.6; O2SAT 99; BMI 31.2
--- NOTE | 2020-09-28 14:17 | ED.CHESTPAIN ---
HPI - Chest Pain General Chief Complaint: Chest Pain Stated Complaint: Hernia on chest, Chest Pain/ tingling Time Seen by Provider: 09/28/20 14:12 Source: patient and family (Spouse) Mode of arrival: ambulatory Limitations: no limitations History of Present Illness HPI narrative: 44 years old female came in for evaluation of chest pain. 44-year-old female had left-sided chest burning sensation since 07:00 o'clock in the morning (7 hours ago), described sensation as constant, localized to the epigastric area and goes up to the left side of the chest, no other associated symptoms no shortness of breath, patient describes acid reflux. No relieving or aggravating factor. Patient is known to to have GERD disease, patient was evaluated by upper endoscopy at [facility] was reported as normal, patient also been seen by our operational communication chief. Related Data Home Medications Medication Instructions Recorded Confirmed calcium citrate 315 mg-vitamin D3 1 tab PO DAILY 01/01/20 07/06/20 5 mcg (200 unit) tablet alprazolam 1 mg tablet 1 mg PO TID PRN 02/10/20 07/06/20 amitriptyline 25 mg tablet 25 mg PO BEDTIME PRN tab 04/18/20 07/06/20 lancets 33 gauge #100 ea 04/18/20 07/06/20 Previous Rx's Medication Instructions Recorded acarbose 100 mg tablet 100 mg PO TID #90 tab 01/01/20 alcohol swabs 1 pad TOPICAL TID 30 Days #100 ea 01/01/20 blood sugar diagnostic #100 ea 01/01/20 lancets 28 gauge #100 ea 01/01/20 rosuvastatin 5 mg tablet 5 mg PO DAILY #30 tab 01/01/20 cyanocobalamin (vitamin B-12) 500 500 mcg SUBLINGUAL DAILY 30 Days 01/03/20 mcg sublingual tablet #30 tab blood-glucose meter #1 ea 02/25/20 linaclotide 290 mcg capsule 290 mcg PO DAILY 30 Days #30 cap 02/29/20 metoclopramide HCl 10 mg tablet 10 mg PO QIDACHS #120 tab 02/29/20 simethicone 125 mg chewable tablet 125 mg PO QID #120 ea 03/07/20 amoxicillin 875 mg tablet 875 mg PO BID 10 Days #20 tab 05/23/20 cetirizine 10 mg tablet 10 mg PO DAILY #30 tab 05/23/20 fluticasone propionate 50 1 spray INTRANASAL DAILY #16 ml 06/07/20 mcg/actuation nasal spray,suspension alum-mag hydroxide-simeth [Maalox 5 ml PO 5XD PRN #30 ml 07/05/20 Advanced] famotidine [Pepcid] 20 mg PO DAILY #14 tab 07/05/20 lidocaine HCl [Lidocaine Viscous] 1 appl MUCOUS MEMBRANE BID PRN 07/05/20 #100 ml omeprazole 20 mg capsule,delayed 20 mg PO QAM #90 cap 07/19/20 release ibuprofen 800 mg tablet 800 mg PO TID PRN #90 tab 07/27/20 topiramate 100 mg tablet 100 mg PO BEDTIME #90 tab 07/27/20 tramadol 50 mg tablet 50 mg PO Q6H PRN #20 tab 07/27/20 prednisone 20 mg PO DAILY 5 Days #5 tab 08/26/20 tamsulosin [Flomax] 0.4 mg PO DAILY 14 Days #14 cap 08/26/20 tramadol 50 mg tablet See Rx Instructions .ROUTE 09/14/20 .COMPLEX 30 Days #30 tab bisacodyl 5 mg tablet,delayed 5 - 10 mg PO BEDTIME PRN 30 Days 09/21/20 release #60 tab Allergies Allergy/AdvReac Type Severity Reaction Status Date / Time lisinopril [LISINOPRIL] Allergy Severe ANAPYHLAXIS, Verified 08/26/20 12:42 swelling metformin [METFORMIN] Allergy Severe ANAPHYLAXIS, Verified 08/26/20 12:42 diarrhea sumatriptan [From IMITREX] Allergy Severe ANAPHYLAXIS, Verified 08/26/20 12:42 sedation Review of Systems Review of Systems: All other systems are reviewed and are negative Constitutional: Reports as per HPI and Reports no additional constitutional complaints Eyes: Reports as per HPI and Reports no additional eye complaints Reports system reviewed and no additional complaints, except as documented Cardiovascular: Reports as per HPI and Reports no additional cardiovascular complaints Respiratory: Reports as per HPI and Reports no additional respiratory complaints Gastrointestinal: Reports as per HPI and Reports no additional gastrointestinal complaints Genitourinary: Reports no additional female genitourinary complaints Musculoskeletal: Reports no additional musculoskeletal complaints Skin/Breast: Reports system reviewed and no additional complaints, except as docu Psychiatric: Reports no additional psychiatric complaints Endocrine: Reports no additional endocrine complaints Hematologic/Lymphatic: Reports no additional hematologic/lymphatic complaints Allergic/Immunologic: Reports no additional allergic/immunologic complaints Reports system reviewed and no additional complaints, except as documented and Reports Abnormal speech present [facility] Past Medical History Medical History Allergic rhinitis Anal fissure Anxiety Arthritis B12 deficiency Chronic pain syndrome Constipation Costochondritis Diabetes mellitus Dyslipidemia EKG abnormalities Gastroparesis GERD (gastroesophageal reflux disease) Hepatitis A Hepatitis B Hepatomegaly Hypoglycemia after GI (gastrointestinal) surgery Insomnia Leukocytosis Lumbar degenerative disc disease Migraine Obesity (BMI 30-39.9) Occipital neuralgia of left side MIO on CPAP Proteinuria Pure hypercholesterolemia Recurrent chest pain Renal stones Shoulder pain, left Sinusitis Spondylosis of cervical spine without myelopathy 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 Upper abdominal pain Vitamin D deficiency Surgical History H/O gastric bypass History of esophagogastroduodenoscopy (EGD) History of tubal ligation History of umbilical hernia Hx of bilateral breast reduction surgery Hx of section Hx of cholecystectomy Hx of lithotripsy Family History Family History Father Liver cancer Hypertension Diabetes mellitus CVD (cardiovascular disease) Liver failure Mother Hypercholesterolemia Breast cancer Asthma Depression Maternal Grandmother Diabetes mellitus Hypertension Paternal Grandmother Diabetes mellitus Hypertension Social History Social History Household Members: None Alcohol intake: never Patient Tobacco Use Status: Never used Tobacco Advance Directives: Yes Advance Directives Information Provided: Yes Advance Directives on File: No Patient : No Physical Exam Vital Signs: Vital Signs: Last Vital Signs Temp 98 F 09/28/20 12:30 Pulse 64 09/28/20 15:09 Resp 17 09/28/20 15:09 BP 101/72 09/28/20 15:09 Pulse Ox 99 09/28/20 15:09 Body Mass Index 31.2 Vital signs have been reviewed as appeared to be correct. Blood pressure normal. Heart rate normal. Respiration rate normal. Temperature normal. Oxygen saturation normal. Appearance: Alert. Oriented X3. No acute distress. Head: Normal external exam. Normocephalic. Atraumatic. No Mcdonald signs noted. No raccoon eyes noted Eyes: PERRLA. EOMI. Conjunctiva and sclera normal. Eyelids normal. ENT: TM's Normal. Pharynx normal. Uvula midline. Moist mucous membranes. No trismus noted. No drooling noted. No muffled voice noted. Neck: Normal inspection. Neck supple. FROM. No adenopathy. Thyroid Normal. No meningeal signs. No neck mass noted. CVS: Normal heart rate and rhythm. Heart sound normal. No murmurs noted. Pulses normal throughout. Respiratory: No respiratory distress. Painless inspiration. Breath sounds normal. No wheezes/rales/rhonchi noted. Chest nontender. No accessory muscle usage noted or decreased air movement noted. Abdomen: Soft, mild epigastric tenderness no rebound tenderness, guarding.. Bowel sounds normal in all 4 quadrants. No distention noted. No organomegaly noted. No visible injury noted. Back: No CVA tenderness. Full range of motion noted. Skin: Skin warm and dry. Normal skin color. Normal skin turgor. No rashes/lesions/lacerations noted. Extremities: No lower extremity edema. Extremities exhibit normal range of motion. Extremities nontender. Neuro: Oriented X 3. No motor deficit. No sensory deficit. Reflexes normal. Course Course Course Narrative: Assessment and plan. 44-year-old female history of gastric bypass done at [facility] many years ago, came in with epigastric/chest pain, patient has been evaluated by operational communication chief, had a recent upper endoscopy which was unremarkable. Chest pain workup in emergency department is unremarkable. MDM - Chest Pain Lab Data Attestation: I reviewed the patient's lab results. Result diagrams: 09/28/20 14:30 09/28/20 14:30 Labs: Lab Results 09/28/20 09/28/20 09/28/20 Range/Units 14:30 14:30 14:30 WBC 9.4 (4.8-10.8) X10*3/uL RBC 3.98 L (4.20-5.50) X10*6/uL Hgb 10.7 L (12.0-16.0) g/dl Hct 33.5 L (37-47) % MCV 84.2 (80-98) fL MCH 26.9 L (27.0-33.0) pg MCHC 31.9 (31.0-35.0) g/dl RDW 13.6 (11.0-16.0) % Plt Count 284 (160-400) X10*3/uL MPV 10.5 (9.4-12.3) fL Immature Gran % (Auto) 0.3 (0.0-0.4) % Neut % (Auto) 61.2 (45-73) % Lymph % (Auto) 26.2 (20-40) % [place] % (Auto) 9.4 (2-11) % Eos % (Auto) 2.3 (0-4) % Baso % (Auto) 0.6 (0-2) % Lymph # (Auto) 2.5 (1.2-4.9) X10*3/uL [place] # (Auto) 0.9 (0.1-1.2) X10*3/uL Eos # (Auto) 0.2 (0.0-0.4) X10*3/uL Baso # (Auto) 0.1 (0.0-0.2) X10*3/uL Abs Immat Gran (auto) 0.03 (0.00-0.03) X10*3/uL Absolute Neuts (auto) 5.7 (2.0-8.3) X10*3/uL Absolute Nucleated RBC 0.000 (0.0-0.012) X10*3/uL Nucleated RBC % (auto) 0.0 (0.0-0.2) /100WBC Sodium 140 (135-145) mmol/L Potassium 4.0 (3.3-5.1) mmol/L Chloride 109 H (96-108) mmol/L Carbon Dioxide 22 (22-29) mmol/L Anion Gap 13 (12-20) BUN 18 H (9-16) mg/dL Creatinine 0.84 (0.5-1.4) mg/dL Estim Creat Clear Calc 76.8 Estimated GFR > 60 Random Glucose 77 (60-115) mg/dL Calcium 9.9 (8.4-10.2) mg/dL Total Bilirubin 0.4 (0.0-1.0) mg/dL Direct Bilirubin 0.2 (0.0-0.5) mg/dL AST 21 (5-31) U/L ALT 10 (0-31) U/L Alkaline Phosphatase 69 (39-117) U/L Troponin I High Sens < 3.5 (<3.5-17.0) ng/L Total Protein 7.5 (6.5-8.0) g/dL Albumin 4.3 (3.5-5.0) g/dL Lipase 71 (8-78) U/L Urine Color Urine Appearance Urine pH (5.0-8.0) Ur Specific [place] (1.005-1.025) Urine Protein (NEG-TRACE) MG/DL Urine Glucose (UA) (NEG) MG/DL Urine Ketones (NEG) MG/DL Urine Blood (NEG) Urine Nitrite (NEG) Ur Leukocyte Esterase (NEG) 09/28/20 Range/Units 15:16 WBC (4.8-10.8) X10*3/uL RBC (4.20-5.50) X10*6/uL Hgb (12.0-16.0) g/dl Hct (37-47) % MCV (80-98) fL MCH (27.0-33.0) pg MCHC (31.0-35.0) g/dl RDW (11.0-16.0) % Plt Count (160-400) X10*3/uL MPV (9.4-12.3) fL Immature Gran % (Auto) (0.0-0.4) % Neut % (Auto) (45-73) % Lymph % (Auto) (20-40) % [place] % (Auto) (2-11) % Eos % (Auto) (0-4) % Baso % (Auto) (0-2) % Lymph # (Auto) (1.2-4.9) X10*3/uL [place] # (Auto) (0.1-1.2) X10*3/uL Eos # (Auto) (0.0-0.4) X10*3/uL Baso # (Auto) (0.0-0.2) X10*3/uL Abs Immat Gran (auto) (0.00-0.03) X10*3/uL Absolute Neuts (auto) (2.0-8.3) X10*3/uL Absolute Nucleated RBC (0.0-0.012) X10*3/uL Nucleated RBC % (auto) (0.0-0.2) /100WBC Sodium (135-145) mmol/L Potassium (3.3-5.1) mmol/L Chloride (96-108) mmol/L Carbon Dioxide (22-29) mmol/L Anion Gap (12-20) BUN (9-16) mg/dL Creatinine (0.5-1.4) mg/dL Estim Creat Clear Calc Estimated GFR Random Glucose (60-115) mg/dL Calcium (8.4-10.2) mg/dL Total Bilirubin (0.0-1.0) mg/dL Direct Bilirubin (0.0-0.5) mg/dL AST (5-31) U/L ALT (0-31) U/L Alkaline Phosphatase (39-117) U/L Troponin I High Sens (<3.5-17.0) ng/L Total Protein (6.5-8.0) g/dL Albumin (3.5-5.0) g/dL Lipase (8-78) U/L Urine Color YELLOW Urine Appearance CLEAR Urine pH 6.0 (5.0-8.0) Ur Specific [place] 1.010 (1.005-1.025) Urine Protein NEG (NEG-TRACE) MG/DL Urine Glucose (UA) NEG (NEG) MG/DL Urine Ketones NEG (NEG) MG/DL Urine Blood NEG (NEG) Urine Nitrite NEG (NEG) Ur Leukocyte Esterase NEG (NEG) Imaging Data Chest x-ray: Radiologist's impression: Unremarkable chest examination. ECG Data ECG #1: Interpretation: Normal sinus rhythm at 76 beats per minutes, known normal interval, no ST-T ischemic changes. Discharge Plan Discharge Clinical Impression: Chronic GERD Chest pain Qualifiers: Chest pain type: unspecified Qualified Code(s): R07.9 - Chest pain, unspecified Patient Disposition: Home, Self-Care Instructions: Thoracic Pain (ED) Prescriptions: No Action cyanocobalamin (vitamin B-12) 500 mcg tablet, sublingual 500 mcg sublingual DAILY 30 Days Qty: 30 RF: 11 (DME) blood-glucose meter [FreeStyle Lite Meter] Kit See Rx Instructions .ROUTE .MEDSUPPLY Qty: 1 RF: 0 simethicone 125 mg tablet,chewable 125 mg PO QID Qty: 120 RF: 3 fluticasone propionate 50 mcg/actuation spray,suspension 1 spray intranasal DAILY Qty: 16 RF: 3 omeprazole 20 mg capsule,delayed release(DR/EC) 20 mg PO QAM Qty: 90 RF: 3 ibuprofen 800 mg tablet 800 mg PO TID PRN (Reason: fever or pain) Qty: 90 RF: 3 topiramate 100 mg tablet 100 mg PO BEDTIME Qty: 90 RF: 1 tramadol 50 mg tablet 50 mg PO Q6H PRN (Reason: pain) Qty: 20 RF: 0 tramadol 50 mg tablet See Rx Instructions .ROUTE .COMPLEX 30 Days Qty: 30 RF: 0 bisacodyl 5 mg tablet,delayed release (DR/EC) 5 - 10 mg PO BEDTIME PRN (Reason: constipation) 30 Days Qty: 60 RF: 0 famotidine [Pepcid] 20 mg tablet 20 mg PO DAILY Qty: 14 RF: 0 alum-mag hydroxide-simeth [Maalox Advanced] 200-200-20 mg/5 mL suspension 5 ml PO 5XD PRN (Reason: dyspepsia) Qty: 30 RF: 0 Lidocaine Viscous 2 % solution 1 appl mucous membrane BID PRN (Reason: pain) Qty: 100 RF: 0 prednisone 20 mg tablet 20 mg PO DAILY 5 Days Qty: 5 RF: 0 tamsulosin [Flomax] 0.4 mg capsule 0.4 mg PO DAILY 14 Days Qty: 14 RF: 0 (DME) lancets 33 gauge misc See Rx Instructions ea Not Applicable TID Qty: 100 RF: 0 amoxicillin 875 mg tablet 875 mg PO BID 10 Days Qty: 20 RF: 0 cetirizine 10 mg tablet 10 mg PO DAILY Qty: 30 RF: 6 alprazolam 1 mg tablet 1 mg PO TID PRNRF: 0 amitriptyline 25 mg tablet 25 mg PO BEDTIME PRNRF: 0 calcium citrate-vitamin D3 [Calcium Citrate + D] 315 mg-5 mcg (200 unit) tablet 1 tab PO DAILY RF: 0 acarbose 100 mg tablet 100 mg PO TID Qty: 90 RF: 12 (DME) FreeStyle Lite Strips Strip See Rx Instructions .ROUTE .MEDSUPPLY Qty: 100 RF: 12 rosuvastatin [Crestor] 5 mg tablet 5 mg PO DAILY Qty: 30 RF: 12 (DME) lancets [FreeStyle Lancets] 28 gauge misc See Rx Instructions .ROUTE .MEDSUPPLY Qty: 100 RF: 12 alcohol swabs [Alcohol Pads] Pads, Medicated 1 pad topical TID 30 Days Qty: 100 RF: 12 Linzess 290 mcg capsule 290 mcg PO DAILY 30 Days Qty: 30 RF: 6 metoclopramide HCl [Reglan] 10 mg tablet 10 mg PO QIDACHS Qty: 120 RF: 6 Referrals: Juve Crawford MD [Primary Care Provider] - 2 days Evelia Duncan MD [Physician] - 2 days
[2020-09-28 14:39] LABS: Basophils Absolute Auto 0.1 X10*3/uL (0.0-0.2); Basophils Percent Auto 0.6 % (0-2); Eosinophils Absolute Auto 0.2 X10*3/uL (0.0-0.4); Eosinophils Percent Auto 2.3 % (0-4); Hematocrit 33.5 % (37-47); Hemoglobin 10.7 g/dl (12.0-16.0); Imm Gran Abs Auto 0.03 X10*3/uL (0.00-0.03); Imm Gran Pct Auto 0.3 % (0.0-0.4); Lymphocytes Absolute Auto 2.5 X10*3/uL (1.2-4.9); Lymphocytes Percent Auto 26.2 % (20-40); MANUAL DIFF FLAG NO; Mean Corpuscular HGB Conc 31.9 g/dl (31.0-35.0); Mean Corpuscular Hemoglobin 26.9 pg (27.0-33.0); Mean Corpuscular Volume 84.2 fL (80-98); Mean Platelet Volume 10.5 fL (9.4-12.3); Monocytes Absolute Auto 0.9 X10*3/uL (0.1-1.2); Monocytes Percent Auto 9.4 % (2-11); Neutrophils Absolute Auto 5.7 X10*3/uL (2.0-8.3); Neutrophils Percent Auto 61.2 % (45-73); Platelet Count 284 X10*3/uL (160-400); Red Blood Count 3.98 X10*6/uL (4.20-5.50); Red Cell Distribution Width 13.6 % (11.0-16.0); White Blood Count 9.4 X10*3/uL (4.8-10.8)
[2020-09-28] MEDS: 0.9 % Sodium Chloride 1,000 ML 999 ML IVCONT (14:51)
[2020-09-28] MEDS: Magnesium Hydrox/Alum Hydrox 30 ML ORAL.SUSP PO (15:05)
[2020-09-28] MEDS: Famotidine/PF 20 MG/2 ML VIAL IVPUSH (15:05)
[2020-09-28 15:09] VITALS: BP 101/72; PULSE 64; RESP 17; O2SAT 99
[2020-09-28 15:12] LABS: Alanine Aminotransferase 10 U/L (0-31); Albumin Level 4.3 g/dL (3.5-5.0); Alkaline Phosphatase 69 U/L (39-117); Anion Gap 13 (12-20); Aspartate Amino Transferase 21 U/L (5-31); Bilirubin Direct 0.2 mg/dL (0.0-0.5); Bilirubin Total 0.4 mg/dL (0.0-1.0); Blood Urea Nitrogen 18 mg/dL (9-16); Calcium 9.9 mg/dL (8.4-10.2); Carbon Dioxide 22 mmol/L (22-29); Chloride 109 mmol/L (96-108); Creatinine Clr Calc Pharmacy 76.8; Estimated Glomerular Filt Rate > 60; Glucose Random 77 mg/dL (60-115); Lipase 71 U/L (8-78); Sodium 140 mmol/L (135-145); Total Protein 7.5 g/dL (6.5-8.0)
[2020-09-28 15:18] LABS: Troponin-I High Sensitivity < 3.5 ng/L (<3.5-17.0)
[2020-09-28 15:31] LABS: Glucose Urine UA NEG (NEG); Leukocyte Esterase Urine NEG (NEG); Nitrite Urine NEG (NEG); Urine Blood NEG (NEG); Urine Ketones NEG (NEG); Urine Protein NEG (NEG-TRACE)
[2020-09-28 15:32] LABS: Appearance Urine CLEAR; Color Urine YELLOW
[2020-09-28 16:03] VITALS: BP 117/69; PULSE 64; RESP 14; O2SAT 98
== END 2020-09-28 16:48 | disposition home or self-care (01) ==
PROVIDERS: Emergency Provider Emergency Medicine; PCP Internal Medicine
DX: K21.9 Gastro-esophageal reflux disease without esophagitis (principal); R07.9 Chest pain, unspecified; M54.6 Pain in thoracic spine; Z79.899 Other long term (current) drug therapy
CPT/HCPCS: 36415; 71045; 80048; 80076; 81003; 83690; 84484; 85025; 93005; 96365; 96375; 99284

== ENCOUNTER 2020-10-04 14:55 | Emergency (ER) | payer MEDICARE, MEDICAID, SELFPAY ==
[2020-10-04 15:03] VITALS: BP 124/73; PULSE 77; RESP 18; TEMP 37.1; O2SAT 98; BMI 31.2
--- NOTE | 2020-10-04 16:20 | ED_ITS ---
HPI - Abdominal Pain General Chief Complaint: Abdominal Pain Stated Complaint: abd pain Time Seen by Provider: 10/04/20 16:10 Source: patient and family Mode of arrival: ambulatory Limitations: no limitations History of Present Illness HPI narrative: 44 y/o female with history of gastric bypass several years ago, diabetes, gastroparesis, GERD, constipation, chronic pain, migraines, MIO, and anxiety who presents to the ER with 2 days of central burning abdominal pain that is worse when she eats. She has lost her appetite due to the pain. It occasionally radiates up into her chest. She was seen here recently on 09/28 for the same; she had normal lab workup. She also had a CT scan in August that showed constipation and renal stones. She also had a normal EGD in August. She only takes simethicone for abdominal pain. MD elicited complaint: abdominal pain Onset (ago): day(s) (2) Pain Consistency: intermittent Location: epigastric Severity: moderate Quality: burning Radiation: chest Migration to: no migration Exacerbating factors: eating Relieving factors: nothing Context: history of similar episodes Associated symptoms: denies other symptoms Related Data Home Medications Medication Instructions Recorded Confirmed calcium citrate 315 mg-vitamin D3 1 tab PO DAILY 01/01/20 07/06/20 5 mcg (200 unit) tablet alprazolam 1 mg tablet 1 mg PO TID PRN 02/10/20 07/06/20 amitriptyline 25 mg tablet 25 mg PO BEDTIME PRN tab 04/18/20 07/06/20 lancets 33 gauge #100 ea 04/18/20 07/06/20 Previous Rx's Medication Instructions Recorded acarbose 100 mg tablet 100 mg PO TID #90 tab 01/01/20 alcohol swabs 1 pad TOPICAL TID 30 Days #100 ea 01/01/20 blood sugar diagnostic #100 ea 01/01/20 lancets 28 gauge #100 ea 01/01/20 rosuvastatin 5 mg tablet 5 mg PO DAILY #30 tab 01/01/20 cyanocobalamin (vitamin B-12) 500 500 mcg SUBLINGUAL DAILY 30 Days 01/03/20 mcg sublingual tablet #30 tab blood-glucose meter #1 ea 02/25/20 linaclotide 290 mcg capsule 290 mcg PO DAILY 30 Days #30 cap 02/29/20 metoclopramide HCl 10 mg tablet 10 mg PO QIDACHS #120 tab 02/29/20 simethicone 125 mg chewable tablet 125 mg PO QID #120 ea 03/07/20 amoxicillin 875 mg tablet 875 mg PO BID 10 Days #20 tab 05/23/20 cetirizine 10 mg tablet 10 mg PO DAILY #30 tab 05/23/20 fluticasone propionate 50 1 spray INTRANASAL DAILY #16 ml 06/07/20 mcg/actuation nasal spray,suspension alum-mag hydroxide-simeth [Maalox 5 ml PO 5XD PRN #30 ml 07/05/20 Advanced] famotidine [Pepcid] 20 mg PO DAILY #14 tab 07/05/20 lidocaine HCl [Lidocaine Viscous] 1 appl MUCOUS MEMBRANE BID PRN 07/05/20 #100 ml omeprazole 20 mg capsule,delayed 20 mg PO QAM #90 cap 07/19/20 release ibuprofen 800 mg tablet 800 mg PO TID PRN #90 tab 07/27/20 topiramate 100 mg tablet 100 mg PO BEDTIME #90 tab 07/27/20 tramadol 50 mg tablet 50 mg PO Q6H PRN #20 tab 07/27/20 prednisone 20 mg PO DAILY 5 Days #5 tab 08/26/20 tamsulosin [Flomax] 0.4 mg PO DAILY 14 Days #14 cap 08/26/20 tramadol 50 mg tablet See Rx Instructions .ROUTE 09/14/20 .COMPLEX 30 Days #30 tab bisacodyl 5 mg tablet,delayed 5 - 10 mg PO BEDTIME PRN 30 Days 09/21/20 release #60 tab dicyclomine 10 mg PO Q8H PRN #100 ml 10/04/20 omeprazole 40 mg PO DAILY #14 cap 10/04/20 sucralfate [Carafate] 1 g PO BID #20 tab 10/04/20 Allergies Allergy/AdvReac Type Severity Reaction Status Date / Time lisinopril [LISINOPRIL] Allergy Severe ANAPYHLAXIS, Verified 10/04/20 15:03 swelling metformin [METFORMIN] Allergy Severe ANAPHYLAXIS, Verified 10/04/20 15:03 diarrhea sumatriptan [From IMITREX] Allergy Severe ANAPHYLAXIS, Verified 10/04/20 15:03 sedation Review of Systems Review of Systems Constitutional: No Fever, No Chills ENT/Mouth: No sore throat, No Rhinorrhea, No Swallowing Difficulty Cardiovascular: No Chest Pain, No SOB Respiratory: No Cough, No Sputum, No Wheezing, No dyspnea Gastrointestinal: No Nausea, No Vomiting, No Diarrhea, + abdominal Pain Genitourinary: No Dysuria, No Urinary Frequency, No Hematuria Musculoskeletal: No joint pain, No Myalgias Skin: No Skin Lesions, No rash Neuro: No Weakness, No Numbness, No Dizziness, No Headache Psych: No Anxiety/Panic, No Depression Heme/Lymph: No Bruising, No Lymphadenopathy Endocrine: No Polyuria, No Polydipsia Physical Exam Vital Signs: Vital Signs: Last Vital Signs Temp 98.8 F 10/04/20 15:03 Pulse 66 10/04/20 16:34 Resp 16 10/04/20 16:34 BP 117/72 10/04/20 16:34 Pulse Ox 98 10/04/20 16:34 Body Mass Index 31.2 Appearance: Alert. Oriented X3. No acute distress. Eyes: Pupils equal, round and reactive to light. ENT: Pharynx normal. Neck: Normal inspection. Neck supple. CVS: Normal heart rate and rhythm. Pulses normal. Respiratory: No respiratory distress. Breath sounds normal. Abdomen: Soft with mild epigastric tenderness, no rebound or guarding. +BS x4 Skin: Skin warm and dry. Normal skin color. Normal skin turgor. No rashes. Extremities: No lower extremity edema. Neuro: Oriented X 3. No motor deficit. No sensory deficit. Course Course Course Narrative: 44 y/o female presenting with 2 days of burning middle abdominal pain, worse with eating. Seen here recently for similar presentation. Had recent EGD and has had 2 CT scans of her abdomen this year. She has normal lab work done last week. Her symptoms are most consistent with untreated reflex and possible gastritis. She has no N/V/D or fevers. No melena or symptoms of GI bleed. She appears well with benign exam and normal VS. Will give GI cocktail and reassess. Reevaluation(s) Reevaluation #1: Gi cocktail resulted in some improvement. She now c/o some cramping and bloating. Her exam is benign. She last had a normal BM this morning. Will treat with bentyl and simethicone. She has an appointment in 2 days with her GI doctor. At this time there are now worrisome signs or symptoms to prompt repeat imaging. Will start treatment for gastritis/GERD given her burning pain with food. She is stable for discharge with this treatment, diet modifications and f/u with GI in 2 days. She is agreeable with plan and instructed to return to the ER if symptoms worsen. Discharge Plan Discharge Clinical Impression: Gastritis Qualifiers: Gastritis type: other gastritis Chronicity: acute Gastritis bleeding: without bleeding Qualified Code(s): K29.00 - Acute gastritis without bleeding Patient Disposition: Home, Self-Care Instructions: Gastritis (ED), Gas and Bloating (ED) Additional Instructions: Take the newly prescribed medications for your stomach as directed. Stick to a bland diet for the next 1 week. Avoid acidic and spicy foods. No alcohol. Follow up with your GI doctor as scheduled in 2 days. If you develop new or worsening symptoms call 911 or come back to the ER for further evaluation. Prescriptions: New sucralfate [Carafate] 1 gram tablet 1 g PO BID Qty: 20 RF: 0 omeprazole 40 mg capsule,delayed release(DR/EC) 40 mg PO DAILY Qty: 14 RF: 0 dicyclomine 10 mg/5 mL solution 10 mg PO Q8H PRN (Reason: abdominal pain) Qty: 100 RF: 0 No Action cyanocobalamin (vitamin B-12) 500 mcg tablet, sublingual 500 mcg sublingual DAILY 30 Days Qty: 30 RF: 11 (DME) blood-glucose meter [FreeStyle Lite Meter] Kit See Rx Instructions .ROUTE .MEDSUPPLY Qty: 1 RF: 0 simethicone 125 mg tablet,chewable 125 mg PO QID Qty: 120 RF: 3 fluticasone propionate 50 mcg/actuation spray,suspension 1 spray intranasal DAILY Qty: 16 RF: 3 omeprazole 20 mg capsule,delayed release(DR/EC) 20 mg PO QAM Qty: 90 RF: 3 ibuprofen 800 mg tablet 800 mg PO TID PRN (Reason: fever or pain) Qty: 90 RF: 3 topiramate 100 mg tablet 100 mg PO BEDTIME Qty: 90 RF: 1 tramadol 50 mg tablet 50 mg PO Q6H PRN (Reason: pain) Qty: 20 RF: 0 tramadol 50 mg tablet See Rx Instructions .ROUTE .COMPLEX 30 Days Qty: 30 RF: 0 bisacodyl 5 mg tablet,delayed release (DR/EC) 5 - 10 mg PO BEDTIME PRN (Reason: constipation) 30 Days Qty: 60 RF: 0 famotidine [Pepcid] 20 mg tablet 20 mg PO DAILY Qty: 14 RF: 0 alum-mag hydroxide-simeth [Maalox Advanced] 200-200-20 mg/5 mL suspension 5 ml PO 5XD PRN (Reason: dyspepsia) Qty: 30 RF: 0 Lidocaine Viscous 2 % solution 1 appl mucous membrane BID PRN (Reason: pain) Qty: 100 RF: 0 prednisone 20 mg tablet 20 mg PO DAILY 5 Days Qty: 5 RF: 0 tamsulosin [Flomax] 0.4 mg capsule 0.4 mg PO DAILY 14 Days Qty: 14 RF: 0 (DME) lancets 33 gauge misc See Rx Instructions ea Not Applicable TID Qty: 100 RF: 0 amoxicillin 875 mg tablet 875 mg PO BID 10 Days Qty: 20 RF: 0 cetirizine 10 mg tablet 10 mg PO DAILY Qty: 30 RF: 6 alprazolam 1 mg tablet 1 mg PO TID PRNRF: 0 amitriptyline 25 mg tablet 25 mg PO BEDTIME PRNRF: 0 calcium citrate-vitamin D3 [Calcium Citrate + D] 315 mg-5 mcg (200 unit) tablet 1 tab PO DAILY RF: 0 acarbose 100 mg tablet 100 mg PO TID Qty: 90 RF: 12 (DME) FreeStyle Lite Strips Strip See Rx Instructions .ROUTE .MEDSUPPLY Qty: 100 RF: 12 rosuvastatin [Crestor] 5 mg tablet 5 mg PO DAILY Qty: 30 RF: 12 (DME) lancets [FreeStyle Lancets] 28 gauge misc See Rx Instructions .ROUTE .MEDSUPPLY Qty: 100 RF: 12 alcohol swabs [Alcohol Pads] Pads, Medicated 1 pad topical TID 30 Days Qty: 100 RF: 12 Linzess 290 mcg capsule 290 mcg PO DAILY 30 Days Qty: 30 RF: 6 metoclopramide HCl [Reglan] 10 mg tablet 10 mg PO QIDACHS Qty: 120 RF: 6 Interventions: ED Discharge Assessment Last Done: 10/04/20 17:54 Discharge Date/Time: 10/04/20 17:55 [facility] Past Medical History Attestation statement: The following information was validated with the patient. Medical History Allergic rhinitis Anal fissure Anxiety Arthritis B12 deficiency Chronic pain syndrome Constipation Costochondritis Diabetes mellitus Dyslipidemia EKG abnormalities Gastroparesis GERD (gastroesophageal reflux disease) Hepatitis A Hepatitis B Hepatomegaly Hypoglycemia after GI (gastrointestinal) surgery Insomnia Leukocytosis Lumbar degenerative disc disease Migraine Obesity (BMI 30-39.9) Occipital neuralgia of left side MIO on CPAP Proteinuria Pure hypercholesterolemia Recurrent chest pain Renal stones Shoulder pain, left Sinusitis Spondylosis of cervical spine without myelopathy 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 Upper abdominal pain Vitamin D deficiency Surgical History H/O gastric bypass History of esophagogastroduodenoscopy (EGD) History of tubal ligation History of umbilical hernia Hx of bilateral breast reduction surgery Hx of section Hx of cholecystectomy Hx of lithotripsy Family History Family History Father Liver cancer Hypertension Diabetes mellitus CVD (cardiovascular disease) Liver failure Mother Hypercholesterolemia Breast cancer Asthma Depression Maternal Grandmother Diabetes mellitus Hypertension Paternal Grandmother Diabetes mellitus Hypertension Social History Social History Household Members: None Alcohol intake: never Patient Tobacco Use Status: Never used Tobacco Advance Directives: No Advance Directives Information Provided: No Patient : No
[2020-10-04] MEDS: Magnesium Hydrox/Alum Hydrox 30 ML ORAL.SUSP PO (16:32)
[2020-10-04] MEDS: PHENobarb/Hyoscy/Atropine/Scop 10 ML ELIXIR PO (16:32)
[2020-10-04] MEDS: Lidocaine HCl Viscous 2 % 15 ML SOLUTION MUCOUS MEM (16:32)
[2020-10-04 16:34] VITALS: BP 117/72; PULSE 66; RESP 16; O2SAT 98
[2020-10-04] MEDS: Simethicone 80 MG TAB.CHEW 160 MG PO (17:49)
[2020-10-04] MEDS: Bismuth Subsalicylate 262 MG TABLET 524 MG PO (17:50)
[2020-10-04] MEDS: Dicyclomine HCl 10 MG CAPSULE PO (17:50)
== END 2020-10-04 17:55 | disposition home or self-care (01) ==
PROVIDERS: Emergency Provider Emergency Medicine; PCP Internal Medicine
DX: K29.00 Acute gastritis without bleeding (principal); E11.9 Type 2 diabetes mellitus without complications
CPT/HCPCS: 99283; 99284

== ENCOUNTER → 2020-10-06 09:26 | Outpatient (BNVA) | payer MEDICARE, MEDICAID, SELFPAY | PROVIDERS: PCP Internal Medicine; Referring Provider Internal Medicine; Visit Provider Nurse Practitioner | DX: R10.9 Unspecified abdominal pain (principal); R14.0 Abdominal distension (gaseous); R13.10 Dysphagia, unspecified; K59.04 Chronic idiopathic constipation; K21.9 Gastro-esophageal reflux disease without esophagitis; K31.84 Gastroparesis | CPT/HCPCS: 99212 ==

== ENCOUNTER 2020-10-26 12:26 | Emergency (ER) | payer MEDICARE, MEDICAID, SELFPAY ==
[2020-10-26 13:09] VITALS: BP 130/56; PULSE 73; RESP 18; TEMP 36.8; O2SAT 100; BMI 30.7
--- NOTE | 2020-10-26 16:42 | ED_ITS ---
HPI - General Adult General Chief complaint: General Medical Stated complaint: allergic reaction Time Seen by Provider: 10/26/20 16:41 Source: patient Mode of arrival: ambulatory Limitations: no limitations History of Present Illness HPI narrative: 44 yo female presents to the ER with breast pain, back pain, and constipation after starting a new medication for anemia on 10/18. Since taking the medication she has had constipation, upset stomach and left breast pain. She also c/o some soreness in her back and generally not feeling great since starting the medications. She is not nauseated and she has not vomited. No fever or chills. MD complaint: adverse reaction to iron Onset (ago): week(s) (1) Location: chest, back and abdomen Radiation: non-radiation Severity: moderate Quality: aching Pain Consistency: intermittent Relieving factors: none Exacerbating factors: none Associated symptoms: malaise Treatments prior to arrival: none Related Data Home Medications Medication Instructions Recorded Confirmed calcium citrate 315 mg-vitamin D3 1 tab PO DAILY 01/01/20 10/18/20 5 mcg (200 unit) tablet (Calcium Citrate + D) alprazolam 1 mg tablet 1 mg PO TID PRN 02/10/20 10/18/20 amitriptyline 25 mg tablet 25 mg PO BEDTIME PRN tab 04/18/20 10/18/20 lancets 33 gauge #100 ea 04/18/20 10/18/20 Previous Rx's Medication Instructions Recorded acarbose 100 mg tablet 100 mg PO TID #90 tab 01/01/20 alcohol swabs (Alcohol Pads) 1 pad TOPICAL TID 30 Days #100 ea 01/01/20 blood sugar diagnostic (FreeStyle #100 ea 01/01/20 Lite Strips) lancets 28 gauge (FreeStyle #100 ea 01/01/20 Lancets) rosuvastatin 5 mg tablet (Crestor) 5 mg PO DAILY #30 tab 01/01/20 cyanocobalamin (vitamin B-12) 500 500 mcg SUBLINGUAL DAILY 30 Days 01/03/20 mcg sublingual tablet #30 tab blood-glucose meter (FreeStyle #1 ea 02/25/20 Lite Meter) cetirizine 10 mg tablet 10 mg PO DAILY #30 tab 05/23/20 dicyclomine 10 mg/5 mL oral 10 mg PO Q8H PRN #100 ml 10/04/20 solution bisacodyl 5 mg tablet,delayed 5 - 10 mg PO BEDTIME PRN 30 Days 10/06/20 release #60 tab dicyclomine 20 mg tablet 20 mg PO QID 30 Days #120 tab 10/06/20 linaclotide 290 mcg capsule 290 mcg PO DAILY 30 Days #30 cap 10/06/20 (Linzess) metoclopramide HCl 10 mg tablet 10 mg PO QIDACHS #120 tab 10/06/20 (Reglan) omeprazole 40 mg capsule,delayed 40 mg PO DAILY 30 Days #30 cap 10/06/20 release simethicone 180 mg capsule 180 mg PO QID 30 Days #120 cap 10/06/20 fluticasone propionate 50 1 spray INTRANASAL DAILY #16 ml 10/07/20 mcg/actuation nasal spray,suspension ibuprofen 800 mg tablet 800 mg PO TID PRN 30 Days #90 tab 10/18/20 multivitamin with iron 1 tab PO DAILY 90 Days #90 tab 10/18/20 topiramate 100 mg tablet 100 mg PO BEDTIME 90 Days #90 tab 10/18/20 tramadol 50 mg tablet See Rx Instructions .ROUTE 10/18/20 .COMPLEX 30 Days #30 tab Allergies Allergy/AdvReac Type Severity Reaction Status Date / Time lisinopril [LISINOPRIL] Allergy Severe ANAPYHLAXIS, Verified 10/18/20 13:43 swelling metformin [METFORMIN] Allergy Severe ANAPHYLAXIS, Verified 10/18/20 13:43 diarrhea sumatriptan [From IMITREX] Allergy Severe ANAPHYLAXIS, Verified 10/18/20 13:43 sedation Review of Systems Constitutional: Constitutional: Denies chills, Denies fever(s), Denies headach e(s) and Reports lethargy Eyes: Eyes: Reports no additional eye complaints ENT: Denies dizziness and Denies headache(s) Cardiovascular: Cardiovascular: Denies chest pain, Denies lightheadedness and Denies dyspnea Respiratory: Respiratory: Denies cough and Denies dyspnea Gastrointestinal: Gastrointestinal: Reports abdominal pain, Denies melena, Denies bloating, Denies coffee ground emesis, Reports constipation, Denies GI cramping, Denies diarrhea, Denies nausea and Denies vomiting Genitourinary: Genitourinary: Denies dysuria Musculoskeletal: Musculoskeletal: Reports back pain, Denies myalgias, Denies muscle cramps and Denies muscle weakness Integumentary/Breasts: Skin/Breast: Denies breast swelling, Denies breast skin changes, Reports breast pain, Denies breast mass, Denies lesions and Denies rash Neurologic: Denies dizziness and Denies headache(s) Psychiatric: Psychiatric: Reports anxiety Hematologic/Lymphatic: Hematologic/Lymphatic: Denies easy bleeding and Denies easy bruising Allergic/Immunologic: Allergic/Immunologic: Reports GI upset with certain foods PMFSH Past Medical History Attestation statement: The following information was validated with the patient. 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 Upper abdominal pain Vitamin D deficiency Surgical History H/O gastric bypass History of esophagogastroduodenoscopy (EGD) History of tubal ligation History of umbilical hernia Hx of bilateral breast reduction surgery Hx of section Hx of cholecystectomy Hx of lithotripsy Family History Family History Father Liver cancer Hypertension Diabetes mellitus CVD (cardiovascular disease) Liver failure Mother Hypercholesterolemia Breast cancer Asthma Depression Maternal Grandmother Diabetes mellitus Hypertension Paternal Grandmother Diabetes mellitus Hypertension Social History Social History Household Members: None Housing: House Alcohol intake: never Patient Tobacco Use Status: Never used Tobacco Second Hand Smoke Exposure: Yes Advance Directives: Yes Advance Directives Information Provided: Yes Advance Directives on File: No Patient : No service: No Current occupational status: disabled Physical Exam Vital Signs: Vital Signs: Last Vital Signs Temp 98.2 F 10/26/20 13:09 Pulse 73 10/26/20 13:09 Resp 18 10/26/20 13:09 BP 130/56 L 10/26/20 13:09 Pulse Ox 100 10/26/20 13:09 Body Mass Index 30.7 Appearance: Alert. Oriented X3. No acute distress. Eyes: Pupils equal, round and reactive to light. ENT: Pharynx normal. Neck: Normal inspection. Neck supple. CVS: Normal heart rate and rhythm. Pulses normal. Normal inspection and palpation of bilateral breasts, no skin changes, no nipple discharge. Respiratory: No respiratory distress. Breath sounds normal. Abdomen: Soft and nontender. +BS x4 Skin: Skin warm and dry. Normal skin color. Normal skin turgor. No rashes. Extremities: No lower extremity edema. Neuro: Oriented X 3. No motor deficit. No sensory deficit. Course Course Course Narrative: 44 y/o female presenting with multiple complaints after starting PO iron. She acknowledges that her complaints of constipation, back soreness and left breast pains all started after starting iron. She had a BM this morning but feels it was not complete. She is on 2 laxatives. Her abdominal exam is benign. Her breast exam is normal. Her VS are stable and she appears well. Her anemia is mild, just had it checked by her doctor last week. No rash or evidence of acute allergic reaction. At this time she is stable for discharge from the ER with plan to STOP her MVI w/ iron, follow back up with her doctor and follow up with Hematology for further workup and management of her anemia. She is agreeable with plan. Critical Care Time Critical Care Time Critical Care Time: No Discharge Plan Discharge Clinical Impression: Constipation Qualifiers: Constipation type: unspecified constipation type Qualified Code(s): K59.00 - Constipation, unspecified Patient Disposition: Home, Self-Care Instructions: Constipation (ED), Anemia (ED) Additional Instructions: Recommend STOP taking your vitamin with iron in it. Recommend increasing your fluid intake. Drink plenty of water. Recommend following up with Hematology for further workup and management of your anemia. If you develop new or worsening symptoms call 911 or come back to the ER for further evaluation. Prescriptions: No Action cyanocobalamin (vitamin B-12) 500 mcg tablet, sublingual 500 mcg sublingual DAILY 30 Days Qty: 30 RF: 11 (DME) blood-glucose meter [FreeStyle Lite Meter] Kit See Rx Instructions .ROUTE .MEDSUPPLY Qty: 1 RF: 0 fluticasone propionate 50 mcg/actuation spray,suspension 1 spray intranasal DAILY Qty: 16 RF: 3 dicyclomine 10 mg/5 mL solution 10 mg PO Q8H PRN (Reason: abdominal pain) Qty: 100 RF: 0 (DME) lancets 33 gauge misc See Rx Instructions ea Not Applicable TID Qty: 100 RF: 0 cetirizine 10 mg tablet 10 mg PO DAILY Qty: 30 RF: 6 alprazolam 1 mg tablet 1 mg PO TID PRNRF: 0 amitriptyline 25 mg tablet 25 mg PO BEDTIME PRNRF: 0 multivitamin with iron Tablet 1 tab PO DAILY 90 Days Qty: 90 RF: 3 tramadol 50 mg tablet See Rx Instructions .ROUTE .COMPLEX 30 Days Qty: 30 RF: 0 topiramate 100 mg tablet 100 mg PO BEDTIME 90 Days Qty: 90 RF: 1 ibuprofen 800 mg tablet 800 mg PO TID PRN (Reason: fever or pain) 30 Days Qty: 90 RF: 3 calcium citrate-vitamin D3 [Calcium Citrate + D] 315 mg-5 mcg (200 unit) tablet 1 tab PO DAILY RF: 0 acarbose 100 mg tablet 100 mg PO TID Qty: 90 RF: 12 (DME) FreeStyle Lite Strips Strip See Rx Instructions .ROUTE .MEDSUPPLY Qty: 100 RF: 12 rosuvastatin [Crestor] 5 mg tablet 5 mg PO DAILY Qty: 30 RF: 12 (DME) lancets [FreeStyle Lancets] 28 gauge misc See Rx Instructions .ROUTE .MEDSUPPLY Qty: 100 RF: 12 alcohol swabs [Alcohol Pads] Pads, Medicated 1 pad topical TID 30 Days Qty: 100 RF: 12 dicyclomine 20 mg tablet 20 mg PO QID 30 Days Qty: 120 RF: 6 omeprazole 40 mg capsule,delayed release(DR/EC) 40 mg PO DAILY 30 Days Qty: 30 RF: 6 Linzess 290 mcg capsule 290 mcg PO DAILY 30 Days Qty: 30 RF: 6 metoclopramide HCl [Reglan] 10 mg tablet 10 mg PO QIDACHS Qty: 120 RF: 6 simethicone 180 mg capsule 180 mg PO QID 30 Days Qty: 120 RF: 6 bisacodyl 5 mg tablet,delayed release (DR/EC) 5 - 10 mg PO BEDTIME PRN (Reason: constipation) 30 Days Qty: 60 RF: 6 Referrals: Cinda Gaines MD [Physician] - 1 week (normocytic anemia, not tolerating PO iron) Interventions: ED Discharge Assessment Last Done: 10/26/20 17:07
== END 2020-10-26 17:08 | disposition home or self-care (01) ==
PROVIDERS: Emergency Provider Emergency Medicine; PCP Internal Medicine
DX: K59.00 Constipation, unspecified (principal); N64.4 Mastodynia; M54.9 Dorsalgia, unspecified; D64.9 Anemia, unspecified; E11.9 Type 2 diabetes mellitus without complications; Z79.899 Other long term (current) drug therapy
CPT/HCPCS: 99282; 99283

== ENCOUNTER → 2020-12-13 14:22 | Outpatient (BNVA) | payer MEDICARE, MEDICAID, SELFPAY | PROVIDERS: Visit Provider Nurse Practitioner | DX: Z13.89 Encounter for screening for other disorder (principal) | CPT/HCPCS: Q3014 ==

== ENCOUNTER → 2020-12-28 13:30 | Outpatient (BNVA) | payer MEDICARE, MEDICAID, SELFPAY | PROVIDERS: Visit Provider Urology | DX: N20.0 Calculus of kidney (principal) | CPT/HCPCS: 99202 ==

== ENCOUNTER 2020-12-29 11:22 | Emergency (ER) | payer MEDICARE, MEDICAID, SELFPAY ==
--- NOTE | 2020-12-29 | ECG_ITS ---
Test Reason : cp Blood Pressure : / mmHG Vent. Rate : 069 BPM Atrial Rate : 069 BPM P-R Int : 154 ms QRS Dur : 086 ms QT Int : 392 ms P-R-T Axes : 079 017 021 degrees QTc Int : 420 ms Normal sinus rhythm Low voltage QRS Borderline ECG No previous ECGs available Referred By: Generic ED Physician Electronically Signed By:SARAH MELISSA MD
--- NOTE | ~2020-12-29 | XR_ITS ---
EXAMINATION: XR CHEST CLINICAL INFORMATION: Chest pain COMPARISON: September 28, 2020 TECHNIQUE: PA view of the chest was obtained. FINDINGS: No significant abnormality is noted involving the heart, lungs, mediastinum, bony thorax or soft tissues. XR/XR chest 1V IMPRESSION: No acute disease.
[2020-12-29 11:34] VITALS: BP 127/71; PULSE 67; RESP 18; TEMP 36.6; O2SAT 99
[2020-12-29 12:22] VITALS: BP 106/73; PULSE 66; RESP 18; O2SAT 100
--- NOTE | 2020-12-29 12:30 | PC.NURSE ---
nsr on monitor. pain is left upper back and anterior chest. worse wtih deep breath and movement. ls cta. at bedside.
[2020-12-29 12:36] LABS: MANUAL DIFF FLAG NO
[2020-12-29 12:41] LABS: Basophils Percent Auto 0.4 % (0-2); Eosinophils Absolute Auto 0.1 X10*3/uL (0.0-0.4); Eosinophils Percent Auto 1.3 % (0-4); Hematocrit 31.4 % (37-47); Hemoglobin 10.1 g/dl (12.0-16.0); Imm Gran Abs Auto 0.04 X10*3/uL (0.00-0.03); Imm Gran Pct Auto 0.4 % (0.0-0.4); Lymphocytes Percent Auto 19.9 % (20-40); Mean Corpuscular HGB Conc 32.2 g/dl (31.0-35.0); Mean Corpuscular Hemoglobin 26.6 pg (27.0-33.0); Mean Corpuscular Volume 82.6 fL (80-98); Mean Platelet Volume 10.4 fL (9.4-12.3); Monocytes Percent Auto 9.3 % (2-11); Neutrophils Absolute Auto 7.1 X10*3/uL (2.0-8.3); Neutrophils Percent Auto 68.7 % (45-73); Platelet Count 320 X10*3/uL (160-400); Red Cell Distribution Width 13.3 % (11.0-16.0); White Blood Count 10.3 X10*3/uL (4.8-10.8)
[2020-12-29 12:53] LABS: Anion Gap 13 (12-20); Blood Urea Nitrogen 16 mg/dL (9-16); Calcium 9.5 mg/dL (8.4-10.2); Carbon Dioxide 19 mmol/L (22-29); Chloride 111 mmol/L (96-108); Creatinine Clr Calc Pharmacy 77.3; Estimated Glomerular Filt Rate > 60; Glucose Random 90 mg/dL (60-115); Sodium 139 mmol/L (135-145)
--- NOTE | 2020-12-29 12:58 | ED_ITS ---
HPI - Chest Pain General Chief Complaint: Chest Pain Stated Complaint: upper back pain Time Seen by Provider: 12/29/20 12:54 Source: patient Limitations: no limitations History of Present Illness HPI narrative: This is a 45-year-old female who yesterday was lifting some heavy objects, and developed some left-sided chest pain around to the back of her chest which is worse this morning, worse when she moves or takes a deep breath. Patient denies any shortness of breath. She denies any nausea or sweats. She denies any radiation of the pain to her arm or neck or jaw or shoulder. She does have history of hypercholesterolemia and type 2 diabetes, in remission.. She also has history of chronic pain syndrome. She denies tobacco use. The pain is moderate in severity, pressure-like. Related Data Home Medications Medication Instructions Recorded Confirmed calcium citrate 315 mg-vitamin D3 1 tab PO DAILY 01/01/20 11/21/20 5 mcg (200 unit) tablet (Calcium Citrate + D) alprazolam 1 mg tablet 1 mg PO TID PRN 02/10/20 11/21/20 lancets 33 gauge #100 ea 04/18/20 11/21/20 Previous Rx's Medication Instructions Recorded acarbose 100 mg tablet 100 mg PO TID #90 tab 01/01/20 alcohol swabs (Alcohol Pads) 1 pad TOPICAL TID 30 Days #100 ea 01/01/20 blood sugar diagnostic (FreeStyle #100 ea 01/01/20 Lite Strips) lancets 28 gauge (FreeStyle #100 ea 01/01/20 Lancets) rosuvastatin 5 mg tablet (Crestor) 5 mg PO DAILY #30 tab 01/01/20 cyanocobalamin (vitamin B-12) 500 500 mcg SUBLINGUAL DAILY 30 Days 01/03/20 mcg sublingual tablet #30 tab blood-glucose meter (FreeStyle #1 ea 02/25/20 Lite Meter) cetirizine 10 mg tablet 10 mg PO DAILY #30 tab 05/23/20 bisacodyl 5 mg tablet,delayed 5 - 10 mg PO BEDTIME PRN 30 Days 10/06/20 release #60 tab dicyclomine 20 mg tablet 20 mg PO QID 30 Days #120 tab 10/06/20 linaclotide 290 mcg capsule 290 mcg PO DAILY 30 Days #30 cap 10/06/20 (Linzess) metoclopramide HCl 10 mg tablet 10 mg PO QIDACHS #120 tab 10/06/20 (Reglan) simethicone 180 mg capsule 180 mg PO QID 30 Days #120 cap 10/06/20 topiramate 100 mg tablet 100 mg PO BEDTIME 90 Days #90 tab 10/18/20 ibuprofen 800 mg tablet 800 mg PO TID PRN 30 Days #90 tab 11/21/20 ferrous sulfate 325 mg (65 mg 325 mg PO DAILY #30 tab 11/22/20 iron) tablet (iron) omeprazole 40 mg capsule,delayed 40 mg PO DAILY 30 Days #30 cap 12/13/20 release tramadol 50 mg tablet See Rx Instructions .ROUTE 12/14/20 .COMPLEX 30 Days #30 tab diazepam 5 mg tablet (Valium) 5 mg PO TID PRN #10 tab 12/29/20 ibuprofen 600 mg tablet 600 mg PO Q6H PRN #30 tab 12/29/20 Allergies Allergy/AdvReac Type Severity Reaction Status Date / Time lisinopril [LISINOPRIL] Allergy Severe ANAPYHLAXIS, Verified 12/13/20 14:23 swelling metformin [METFORMIN] Allergy Severe ANAPHYLAXIS, Verified 12/13/20 14:23 diarrhea sumatriptan [From IMITREX] Allergy Severe ANAPHYLAXIS, Verified 12/13/20 14:23 sedation Review of Systems Review of Systems: Yes all other systems are reviewed and are negative Constitutional: Constitutional: Reports as per HPI and Denies fever(s) Eyes: Eyes: Reports as per HPI and Reports no additional eye complaints ENT: Reports system reviewed and no additional complaints, except as documented, Reports as per HPI, Denies nasal congestion, Denies nasal discharge and Denies sore throat Cardiovascular: Cardiovascular: Reports as per HPI, Reports chest pain and Denies dyspnea Respiratory: Respiratory: Reports as per HPI, Denies cough and Denies dyspnea Gastrointestinal: Gastrointestinal: Reports as per HPI, Denies abdominal pain, Denies diarrhea and Denies vomiting Genitourinary: Genitourinary: Reports as per HPI, Denies hematuria, Denies urinary frequency and Denies dysuria Musculoskeletal: Musculoskeletal: Reports no additional musculoskeletal complaints and Denies numbness Integumentary/Breasts: Skin/Breast: Reports as per HPI and Denies rash Neurologic: Reports as per HPI, Denies focal weakness, Denies numbness and Denies Sensory deficit (Neuro) Psychiatric: Psychiatric: Reports no additional psychiatric complaints and Reports as per HPI Endocrine: Endocrine: Reports no additional endocrine complaints and Reports as per HPI Hematologic/Lymphatic: Hematologic/Lymphatic: Reports no additional hematologic/lymphatic complaints, Reports as per HPI and Reports other (No peripheral edema) FOR[facility]LY [facility] Past Medical History 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 Upper abdominal pain Vitamin D deficiency Surgical History H/O gastric bypass History of esophagogastroduodenoscopy (EGD) History of tubal ligation History of umbilical hernia Hx of bilateral breast reduction surgery Hx of section Hx of cholecystectomy Hx of lithotripsy Family History Family History Father Liver cancer Hypertension Diabetes mellitus CVD (cardiovascular disease) Liver failure Mother Hypercholesterolemia Breast cancer Asthma Depression Maternal Grandmother Diabetes mellitus Hypertension Paternal Grandmother Diabetes mellitus Hypertension Social History Social History Household Members: None Housing: House Alcohol intake: never Patient Tobacco Use Status: Never used Tobacco Second Hand Smoke Exposure: Yes Use of substances other than those prescribed or required for medical reasons: No Advance Directives: No service: No Current occupational status: disabled Physical Exam Vital Signs: Vital Signs: Last Vital Signs Temp 98 F 12/29/20 11:34 Pulse 74 12/29/20 13:15 Resp 18 12/29/20 13:15 BP 102/66 12/29/20 13:15 Pulse Ox 99 12/29/20 13:15 Body Mass Index 30.0 Const: Other: Patient's family member is trying to answer all the questions for her, seems somewhat controlling General: cooperative, no acute distress and alert Orientation/consciousness: patient oriented x3 HENMT: Head: Yes normal to inspection Eyes: General: appearance normal, both eyes and all related structures Eyelids: Yes eyelids normal Conjunctivae: conjunctivae normal Pupils: Equ al, round and reactive pupils present Neck: Neck: Yes normal visual inspection and Yes supple Chest: Other: Mild tenderness left anterior, and posterior chest Chest palpation & inspection: normal inspection of the chest Resp: Effort & Inspection: normal respiratory effort Auscultation: clear to auscultation bilaterally Cardio: Rate: regular rate Rhythm: regular rhythm Heart sounds: S1 normal heart sound present, S2 normal heart sound present, no gallops, no murmurs and no rubs GI: Palpation (GI): Soft to palpation, nontender and Other GI palpation findings present (Non-distended) Auscultation: normal bowel sounds Skin: General skin exam: no rashes or lesions noted Neuro: General: patient oriented x3, no focal motor deficits and CN's II-XI intact bilaterally Cranial nerves: Yes Equal, round and reactive pupils present Cognition (Neuro): normal cognition Motor exam (neuro): 5/5 motor strength present throughout Sensory Exam: No Sensory deficit (Neuro) Extrem: General: Yes normal to inspection and Yes no pedal edema Psych: Appearance: grossly normal Affect: normal affect MDM - Chest Pain MDM Narrative Medical decision making narrative: Patient with chest wall pain after lifting a heavy object yesterday. Patient had relief pain with Toradol and Valium. EKG, chest x-ray, labs including troponin negative. Patient does have risk factors for coronary artery disease, however clinically I do not have suspicion for a cute coronary syndrome. Lab Data Attestation: I reviewed the patient's lab results. Result diagrams: 12/29/20 12:28 12/29/20 12:28 Labs: Lab Results 12/29/20 12/29/20 12/29/20 Range/Units 12:28 12:28 12:28 WBC 10.3 (4.8-10.8) X10*3/uL RBC 3.80 L (4.20-5.50) X10*6/uL Hgb 10.1 L (12.0-16.0) g/dl Hct 31.4 L (37-47) % MCV 82.6 (80-98) fL MCH 26.6 L (27.0-33.0) pg MCHC 32.2 (31.0-35.0) g/dl RDW 13.3 (11.0-16.0) % Plt Count 320 (160-400) X10*3/uL MPV 10.4 (9.4-12.3) fL Immature Gran % (Auto) 0.4 (0.0-0.4) % Neut % (Auto) 68.7 (45-73) % Lymph % (Auto) 19.9 L (20-40) % [place] % (Auto) 9.3 (2-11) % Eos % (Auto) 1.3 (0-4) % Baso % (Auto) 0.4 (0-2) % Lymph # (Auto) 2.0 (1.2-4.9) X10*3/uL [place] # (Auto) 1.0 (0.1-1.2) X10*3/uL Eos # (Auto) 0.1 (0.0-0.4) X10*3/uL Baso # (Auto) 0.0 (0.0-0.2) X10*3/uL Abs Immat Gran (auto) 0.04 H (0.00-0.03) X10*3/uL Absolute Neuts (auto) 7.1 (2.0-8.3) X10*3/uL Absolute Nucleated RBC 0.000 (0.0-0.012) X10*3/uL Nucleated RBC % (auto) 0.0 (0.0-0.2) /100WBC Sodium 139 (135-145) mmol/L Potassium 4.0 (3.3-5.1) mmol/L Chloride 111 H (96-108) mmol/L Carbon Dioxide 19 L (22-29) mmol/L Anion Gap 13 (12-20) BUN 16 (9-16) mg/dL Creatinine 0.81 (0.5-1.4) mg/dL Estim Creat Clear Calc 77.3 Estimated GFR > 60 Random Glucose 90 (60-115) mg/dL Calcium 9.5 (8.4-10.2) mg/dL Troponin I High Sens < 3.5 (<3.5-17.0) ng/L Imaging Data Chest x-ray: Radiologist's impression: No acute pathology ECG Data ECG #1: Attestation: I personally reviewed and interpreted this ECG as follows: ECG interpretation date: 12/29/20 ECG interpretation time: 13:09 Interpretation: Sinus rhythm with a rate of 69. No ST elevation or depression. Normal QRS axis. No ectopy. Low-voltage QRS. Discharge Plan Discharge Clinical Impression: Acute chest wall pain, Anemia Patient Disposition: Home, Self-Care Instructions: Anemia (ED), Chest Wall Pain (ED) Additional Instructions: Follow-up with her primary care physician. Use the ibuprofen and Valium as prescribed for the next few days. Return for any new or worsened symptoms Prescriptions: New diazepam [Valium] 5 mg tablet 5 mg PO TID PRN (Reason: muscle spasm) Qty: 10 RF: 0 ibuprofen 600 mg tablet 600 mg PO Q6H PRN (Reason: pain) Qty: 30 RF: 0 No Action cyanocobalamin (vitamin B-12) 500 mcg tablet, sublingual 500 mcg sublingual DAILY 30 Days Qty: 30 RF: 11 (DME) blood-glucose meter [FreeStyle Lite Meter] Kit See Rx Instructions .ROUTE .MEDSUPPLY Qty: 1 RF: 0 tramadol 50 mg tablet See Rx Instructions .ROUTE .COMPLEX 30 Days Qty: 30 RF: 0 ferrous sulfate [iron] 325 mg (65 mg iron) Tablet 325 mg PO DAILY Qty: 30 RF: 3 (DME) lancets 33 gauge misc See Rx Instructions ea Not Applicable TID Qty: 100 RF: 0 cetirizine 10 mg tablet 10 mg PO DAILY Qty: 30 RF: 6 ibuprofen 800 mg tablet 800 mg PO TID PRN (Reason: fever or pain) 30 Days Qty: 90 RF: 3 alprazolam 1 mg tablet 1 mg PO TID PRN (Reason: Anxiety) RF: 0 topiramate 100 mg tablet 100 mg PO BEDTIME 90 Days Qty: 90 RF: 1 calcium citrate-vitamin D3 [Calcium Citrate + D] 315 mg-5 mcg (200 unit) tablet 1 tab PO DAILY RF: 0 acarbose 100 mg tablet 100 mg PO TID Qty: 90 RF: 12 (DME) FreeStyle Lite Strips Strip See Rx Instructions .ROUTE .MEDSUPPLY Qty: 100 RF: 12 rosuvastatin [Crestor] 5 mg tablet 5 mg PO DAILY Qty: 30 RF: 12 (DME) lancets [FreeStyle Lancets] 28 gauge misc See Rx Instructions .ROUTE .MEDSUPPLY Qty: 100 RF: 12 alcohol swabs [Alcohol Pads] Pads, Medicated 1 pad topical TID 30 Days Qty: 100 RF: 12 dicyclomine 20 mg tablet 20 mg PO QID 30 Days Qty: 120 RF: 6 Linzess 290 mcg capsule 290 mcg PO DAILY 30 Days Qty: 30 RF: 6 metoclopramide HCl [Reglan] 10 mg tablet 10 mg PO QIDACHS Qty: 120 RF: 6 simethicone 180 mg capsule 180 mg PO QID 30 Days Qty: 120 RF: 6 bisacodyl 5 mg tablet,delayed release (DR/EC) 5 - 10 mg PO BEDTIME PRN (Reason: constipation) 30 Days Qty: 60 RF: 6 omeprazole 40 mg capsule,delayed release(DR/EC) 40 mg PO DAILY 30 Days Qty: 30 RF: 6 Interventions: ED Discharge Assessment Last Done: 12/29/20 14:40 Discharge Date/Time: 12/29/20 14:41
[2020-12-29 12:59] LABS: Troponin-I High Sensitivity < 3.5 ng/L (<3.5-17.0)
[2020-12-29] MEDS: diazePAM 5 MG TABLET PO (13:13)
[2020-12-29] MEDS: Ketorolac Tromethamine 15 MG/ML VIAL 30 MG IVPUSH (13:13)
[2020-12-29 13:15] VITALS: BP 102/66; PULSE 74; RESP 18; O2SAT 99
== END 2020-12-29 14:41 | disposition home or self-care (01) ==
PROVIDERS: Emergency Provider Emergency Medicine; PCP Internal Medicine
DX: R07.89 Other chest pain (principal); D64.9 Anemia, unspecified; E11.9 Type 2 diabetes mellitus without complications; G89.4 Chronic pain syndrome
CPT/HCPCS: 36415; 71045; 80048; 84484; 85025; 93005; 96374; 99284; J1885

== ENCOUNTER 2020-12-30 08:39 | Outpatient (REF) | payer MEDICARE, MEDICAID, SELFPAY | END 2020-12-30 08:40 | disposition home or self-care (01) | LOC: HO.LAB 08:39 | PROVIDERS: PCP Internal Medicine; Visit Provider Internal Medicine | DX: Z20.822 Contact with and (suspected) exposure to COVID-19 (principal) | CPT/HCPCS: C9803; U0003; U0005 ==

== ENCOUNTER → 2021-01-02 12:29 | Outpatient (BNVA) | payer MEDICARE, MEDICAID, SELFPAY | PROVIDERS: PCP Internal Medicine; Visit Provider Nurse Practitioner Gerontology | DX: K91.2 Postsurgical malabsorption, not elsewhere classified (principal); E78.5 Hyperlipidemia, unspecified; E53.8 Deficiency of other specified B group vitamins; E11.9 Type 2 diabetes mellitus without complications | CPT/HCPCS: 82947; 99212 ==

== ENCOUNTER 2021-01-17 08:33 | Outpatient (REF) | payer MEDICARE, MEDICAID, SELFPAY ==
[2021-01-17 08:50] LABS: MANUAL DIFF FLAG NO
[2021-01-17 09:29] LABS: Basophils Absolute Auto 0.1 X10*3/uL (0.0-0.2); Eosinophils Absolute Auto 0.2 X10*3/uL (0.0-0.4); Eosinophils Percent Auto 2.4 % (0-4); Hematocrit 36.4 % (37.0-47.0); Hemoglobin 11.5 g/dl (12.0-16.0); Imm Gran Abs Auto 0.02 X10*3/uL (0.00-0.03); Imm Gran Pct Auto 0.3 % (0.0-0.4); Lymphocytes Percent Auto 28.1 % (20-40); Mean Corpuscular HGB Conc 31.6 g/dl (31.0-35.0); Mean Corpuscular Hemoglobin 26.4 pg (27.0-33.0); Mean Corpuscular Volume 83.5 fL (80.0-98.0); Mean Platelet Volume 10.8 fL (9.4-12.3); Monocytes Absolute Auto 0.6 X10*3/uL (0.1-1.2); Monocytes Percent Auto 7.9 % (2-11); Neutrophils Percent Auto 60.3 % (45-73); Platelet Count 342 X10*3/uL (160-400); Red Blood Count 4.36 X10*6/uL (4.20-5.50); Red Cell Distribution Width 13.5 % (11.0-16.0)
[2021-01-17 09:37] LABS: Estimated Average Glucose 97 mg/dL
[2021-01-17 09:53] LABS: Appearance Urine CLEAR; Color Urine YELLOW; Glucose Urine UA NEG (NEG); Leukocyte Esterase Urine NEG (NEG); Nitrite Urine NEG (NEG); PH 6.5 (5.0-8.0); Urine Blood NEG (NEG); Urine Ketones NEG (NEG); Urine Protein NEG (NEG-TRACE)
[2021-01-17 09:55] LABS: Alanine Aminotransferase 12 U/L (0-31); Albumin Level 4.1 g/dL (3.5-5.0); Alkaline Phosphatase 60 U/L (39-117); Anion Gap 11 (12-20); Aspartate Amino Transferase 18 U/L (5-31); Bilirubin Total 0.5 mg/dL (0.0-1.0); Blood Urea Nitrogen 17 mg/dL (9-16); C Reactive Protein 0.19 mg/dL (< or = 0.50); Calcium 9.4 mg/dL (8.4-10.2); Carbon Dioxide 23 mmol/L (22-29); Chloride 110 mmol/L (96-108); Cholesterol 113 mg/dL; Estimated Glomerular Filt Rate > 60; Glucose Fasting 85 mg/dL (60-99); HDL Cholesterol 42 mg/dL; Iron 81 mcg/dL (30-160); LDL Cholesterol Calculated 53 mg/dl; Percent Iron Saturation 21 % (15-50); Potassium 4.5 mmol/L (3.3-5.1); Sodium 139 mmol/L (135-145); Total Iron Binding Capacity 377 mcg/dL (228-428); Total Protein 7.4 g/dL (6.5-8.0); Triglycerides 94 mg/dL; Unsaturated Iron Binding 296 ug/dL
[2021-01-17 10:07] LABS: Creatinine Urine 198.91 mg/dL; Microalbum/Creatinine Ratio Ur 5.5 ug/mg cr
[2021-01-17 10:17] LABS: TSH reflex Free T4 0.82 uIU/mL (0.32-4.0); Vitamin D 25-OH Total 41.4 ng/mL (>30)
[2021-01-17 10:21] LABS: Erythrocyte Sedimentation Rate 26 MM/HR (0-20)
[2021-01-17 11:15] LABS: Vitamin B12 858 pg/mL (200-900)
[2021-01-19 14:26] LABS: Anti Nuclear Antibody Screen NEGATIVE (NEGATIVE)
== END 2021-01-17 08:34 | disposition home or self-care (01) ==
LOC: HO.LAB 08:33
PROVIDERS: PCP Internal Medicine; Visit Provider Internal Medicine
DX: D50.9 Iron deficiency anemia, unspecified (principal); M25.50 Pain in unspecified joint; M79.10 Myalgia, unspecified site; R53.83 Other fatigue; E11.9 Type 2 diabetes mellitus without complications; I10 Essential (primary) hypertension; E53.8 Deficiency of other specified B group vitamins; E55.9 Vitamin D deficiency, unspecified; E78.00 Pure hypercholesterolemia, unspecified
CPT/HCPCS: 36415; 80053; 80061; 81003; 82043; 82306; 82607; 82746; 83036; 83540; 84443; 85025; 85652; 86038; 86039; 86140

== ENCOUNTER → 2021-03-21 15:29 | Outpatient (BNVA) | payer MEDICARE, MEDICAID, SELFPAY | PROVIDERS: PCP Internal Medicine; Referring Provider Internal Medicine; Visit Provider Nurse Practitioner | DX: K59.04 Chronic idiopathic constipation (principal); K21.9 Gastro-esophageal reflux disease without esophagitis; K31.84 Gastroparesis; R13.10 Dysphagia, unspecified | CPT/HCPCS: 99212 ==

== ENCOUNTER 2021-04-19 08:32 | Outpatient (REF) | payer MEDICARE, MEDICAID, SELFPAY ==
[2021-04-19 08:59] LABS: MANUAL DIFF FLAG NO
[2021-04-19 09:13] LABS: Basophils Percent Auto 0.5 % (0-2); Eosinophils Absolute Auto 0.2 X10*3/uL (0.0-0.4); Eosinophils Percent Auto 2.4 % (0-4); Hematocrit 36.8 % (37.0-47.0); Hemoglobin 11.3 g/dl (12.0-16.0); Imm Gran Abs Auto 0.04 X10*3/uL (0.00-0.03); Imm Gran Pct Auto 0.5 % (0.0-0.4); Lymphocytes Absolute Auto 2.1 X10*3/uL (1.2-4.9); Lymphocytes Percent Auto 28.4 % (20-40); Mean Corpuscular HGB Conc 30.7 g/dl (31.0-35.0); Mean Corpuscular Hemoglobin 26.5 pg (27.0-33.0); Mean Corpuscular Volume 86.4 fL (80.0-98.0); Mean Platelet Volume 10.2 fL (9.4-12.3); Monocytes Absolute Auto 0.7 X10*3/uL (0.1-1.2); Monocytes Percent Auto 9.8 % (2-11); Neutrophils Absolute Auto 4.4 x10*3/uL (2.0-8.3); Neutrophils Percent Auto 58.4 % (45-73); Platelet Count 321 X10*3/uL (160-400); Red Blood Count 4.26 X10*6/uL (4.20-5.50); Red Cell Distribution Width 14.6 % (11.0-16.0); White Blood Count 7.5 X10*3/uL (4.8-10.8)
[2021-04-19 09:31] LABS: Appearance Urine CLEAR; Color Urine YELLOW; Glucose Urine UA NEG (NEG); Leukocyte Esterase Urine NEG (NEG); Nitrite Urine NEG (NEG); Specific Gravity - Urine 1.015 (1.005-1.025); Urine Blood NEG (NEG); Urine Ketones 5 MG/DL (NEG); Urine Protein NEG (NEG-TRACE)
[2021-04-19 09:38] LABS: Alanine Aminotransferase 19 U/L (0-31); Albumin Level 4.5 g/dL (3.5-5.0); Alkaline Phosphatase 60 U/L (39-117); Anion Gap 10 (12-20); Aspartate Amino Transferase 25 U/L (5-31); Bilirubin Total 0.5 mg/dL (0.0-1.0); Blood Urea Nitrogen 21 mg/dL (9-16); Calcium 9.5 mg/dL (8.4-10.2); Carbon Dioxide 25 mmol/L (22-29); Chloride 109 mmol/L (96-108); Cholesterol 113 mg/dL; Estimated Glomerular Filt Rate > 60; Glucose Fasting 83 mg/dL (60-99); HDL Cholesterol 47 mg/dL; LDL Cholesterol Calculated 52 mg/dl; Potassium 3.9 mmol/L (3.3-5.1); Sodium 140 mmol/L (135-145); Total Protein 7.9 g/dL (6.5-8.0); Triglycerides 73 mg/dL
[2021-04-19 09:45] LABS: Estimated Average Glucose 100 mg/dL; Hemoglobin A1c % 5.1 %
[2021-04-19 10:02] LABS: TSH reflex Free T4 4.24 uIU/mL (0.32-4.0); Vitamin D 25-OH Total 42.8 ng/mL (>30)
[2021-04-19 10:12] LABS: Folate 11.4 ng/mL (> or = 4.0); Vitamin B12 1344 pg/mL (200-900)
[2021-04-19 10:37] LABS: Creatinine Urine 230.54 mg/dL; Microalbum/Creatinine Ratio Ur 8.2 ug/mg cr
[2021-04-19 11:27] LABS: Free T4 (Free Thyroxine) 0.83 ng/dL (0.71-1.85)
== END 2021-04-19 08:33 | disposition home or self-care (01) ==
LOC: HO.LAB 08:32
PROVIDERS: PCP Internal Medicine; Visit Provider Internal Medicine
DX: E53.8 Deficiency of other specified B group vitamins (principal); E55.9 Vitamin D deficiency, unspecified; E78.00 Pure hypercholesterolemia, unspecified; E11.9 Type 2 diabetes mellitus without complications; I10 Essential (primary) hypertension
CPT/HCPCS: 36415; 80053; 80061; 81003; 82043; 82306; 82607; 82746; 83036; 84439; 84443; 85025

== ENCOUNTER 2021-04-20 08:25 | Outpatient (REF) | payer MEDICARE, MEDICAID, SELFPAY ==
--- NOTE | ~2021-04-20 | MM_ITS ---
EXAMINATION: MM SCREENING DIGITAL BREAST TOMOSYNTHESIS, BILATERAL CLINICAL INFORMATION: Screening. Asymptomatic. The lifetime risk of breast cancer based on the Tyrer-Cuzick Model is 14.3%. COMPARISON: Mammography: 03/28/2020 and studies dating back to 08/24/2016 TECHNIQUE: Digital breast tomosynthesis is performed in both the craniocaudal and mediolateral oblique views along with computer-aided detection (CAD). Synthesized 2D images are generated from the tomosynthesis. Additional left exaggerated craniocaudal view performed. FINDINGS: There are scattered areas of fibroglandular density (ACR BI-RADS breast composition Category b). There are no significant masses, abnormal calcifications, or other abnormalities. There appears be increasing density about the medial aspect of the left breast on craniocaudal view, however, on tomosynthesis views this is demonstrated to represent superimposition of fibroglandular tissue and there is generally denser tissue within the breasts compared to prior studies, which can account for this finding. MM/MM tomosynthesis screening BI IMPRESSION: There are no significant changes from prior study. Generalized increased density, which may be hormonal in nature compared to prior studies. ASSESSMENT: BI-RADS 2: Benign RECOMMENDATION: Routine annual mammography screening. This patient's information was entered into a reminder system with a target due date for their next mammogram.
== END 2021-04-20 08:26 | disposition home or self-care (01) ==
LOC: HO.MAMMO 08:25
PROVIDERS: PCP Internal Medicine; Visit Provider Internal Medicine
DX: Z12.31 Encounter for screening mammogram for malignant neoplasm of breast (principal)
CPT/HCPCS: 77063; 77067

== ENCOUNTER 2021-04-25 19:39 | Emergency (ER) | payer MEDICARE, MEDICAID, SELFPAY ==
[2021-04-25 20:00] VITALS: BP 149/89; PULSE 102; RESP 18; TEMP 36.7; O2SAT 96; BMI 29.7
[2021-04-25 20:15] LABS: MANUAL DIFF FLAG NO
[2021-04-25 20:29] LABS: Basophils Absolute Auto 0.1 X10*3/uL (0.0-0.2); Basophils Percent Auto 0.7 % (0-2); Eosinophils Absolute Auto 0.2 X10*3/uL (0.0-0.4); Eosinophils Percent Auto 1.6 % (0-4); Hematocrit 32.8 % (37.0-47.0); Hemoglobin 10.6 g/dl (12.0-16.0); Imm Gran Abs Auto 0.04 X10*3/uL (0.00-0.03); Imm Gran Pct Auto 0.4 % (0.0-0.4); Lymphocytes Absolute Auto 2.4 X10*3/uL (1.2-4.9); Lymphocytes Percent Auto 23.3 % (20-40); Mean Corpuscular HGB Conc 32.3 g/dl (31.0-35.0); Mean Corpuscular Hemoglobin 27.1 pg (27.0-33.0); Mean Corpuscular Volume 83.9 fL (80.0-98.0); Mean Platelet Volume 10.6 fL (9.4-12.3); Monocytes Percent Auto 9.7 % (2-11); Neutrophils Absolute Auto 6.7 x10*3/uL (2.0-8.3); Neutrophils Percent Auto 64.3 % (45-73); Platelet Count 328 X10*3/uL (160-400); Red Blood Count 3.91 X10*6/uL (4.20-5.50); Red Cell Distribution Width 14.6 % (11.0-16.0); White Blood Count 10.3 X10*3/uL (4.8-10.8)
[2021-04-25 20:39] LABS: Anion Gap 12 (12-20); Blood Urea Nitrogen 19 mg/dL (9-16); Calcium 9.3 mg/dL (8.4-10.2); Carbon Dioxide 23 mmol/L (22-29); Chloride 110 mmol/L (96-108); Creatinine Clr Calc Pharmacy 75.8; Estimated Glomerular Filt Rate > 60; Glucose Random 97 mg/dL (60-115); Potassium 4.1 mmol/L (3.3-5.1); Sodium 141 mmol/L (135-145)
[2021-04-25 20:55] LABS: Appearance Urine CLEAR; Color Urine YELLOW; Glucose Urine UA NEG (NEG); Leukocyte Esterase Urine NEG (NEG); Nitrite Urine NEG (NEG); PH 6.5 (5.0-8.0); Urine Blood NEG (NEG); Urine Ketones 5 MG/DL (NEG); Urine Protein NEG (NEG-TRACE)
[2021-04-25 21:17] LABS: Calcium Oxalate Crystals Urine 4+ /LPF; Mucus Urine 2+ /LPF; Squamous Epithelial Cell Urine 3+ /LPF; WBC Urine 0-2 /HPF (0-4)
[2021-04-26 01:41] LABS: HCG Quantitative < 2 mIU/mL
== END 2021-04-26 01:38 | disposition left against medical advice (07) ==
PROVIDERS: Emergency Provider Emergency Medicine; PCP Internal Medicine
DX: R10.9 Unspecified abdominal pain (principal); M54.41 Lumbago with sciatica, right side; E11.9 Type 2 diabetes mellitus without complications; E78.5 Hyperlipidemia, unspecified
CPT/HCPCS: 36415; 80048; 81001; 84702; 85025; 99283

== ENCOUNTER 2021-04-28 11:39 | Outpatient (REF) | payer MEDICARE, MEDICAID, SELFPAY ==
--- NOTE | ~2021-04-28 | XR_ITS ---
EXAMINATION: XR LUMBOSACRAL SPINE CLINICAL INFORMATION: Lower back pain radiating down to the right leg for about 4 days. COMPARISON: CT abdomen/pelvis dated from 08/26/2020. MR of the lumbar spine dated from 06/14/2015. TECHNIQUE: Three views of the lumbosacral spine. FINDINGS: No evidence of acute compression deformities or malalignment. Mild to moderate disc space narrowing at L5-S1 with associated facet arthropathy and likely some degree of neural foraminal encroachment. Other disc spaces and neural foramina are relatively preserved. Although, these are suboptimally assessed in the absence of oblique views. Right upper quadrant cholecystectomy clips. No acute osseous abnormalities. XR/XR lumbar spine 2-3V IMPRESSION: No acute fractures or malalignment. Mild to moderate degenerative changes at L5-S1 with some questionable central canal narrowing and neural foraminal encroachment which could be better assessed with an MR of the lumbar spine if indicated.
== END 2021-04-28 11:40 | disposition home or self-care (01) ==
LOC: HO.XRAY 11:39
PROVIDERS: PCP Internal Medicine; Visit Provider Internal Medicine
DX: M51.36 Other intervertebral disc degeneration, lumbar region (principal); M54.16 Radiculopathy, lumbar region
CPT/HCPCS: 72100

== ENCOUNTER 2021-05-01 14:22 | Emergency (ER) | payer MEDICARE, MEDICAID, SELFPAY ==
--- NOTE | ~2021-05-01 | XR_ITS ---
EXAMINATION: XR CHEST CLINICAL INFORMATION: Chest pain COMPARISON: Previous chest x-ray most recent December 2020 TECHNIQUE: Frontal view of the chest was obtained. FINDINGS: No significant abnormality is noted involving the heart, lungs, mediastinum, bony thorax or soft tissues. XR/XR chest 1V IMPRESSION: Unremarkable examination.
--- NOTE | 2021-05-01 14:27 | ECG_ITS ---
Test Reason : CP Blood Pressure : / mmHG Vent. Rate : 072 BPM Atrial Rate : 072 BPM P-R Int : 146 ms QRS Dur : 086 ms QT Int : 388 ms P-R-T Axes : 048 005 005 degrees QTc Int : 424 ms Normal sinus rhythm Normal ECG When compared with ECG of 29-DEC-2020 11:41, No significant change was found Referred By: Generic ED Physician Electronically Signed By:ISABELL ALATORRE MD
[2021-05-01 15:04] VITALS: BP 125/68; PULSE 79; RESP 18; TEMP 36.8; O2SAT 98; BMI 29.7
[2021-05-01 15:23] VITALS: BP 109/67; PULSE 70; RESP 16; TEMP 37; O2SAT 99
[2021-05-01 15:47] LABS: Strep A Nucleic Acid Negative (Negative)
[2021-05-01 15:52] LABS: COVID-19 Test Negative (Negative); IDNOW Serial# 9DD0AD1C
--- NOTE | 2021-05-01 15:58 | ED.GENADULT ---
HPI - General Adult General Chief complaint: General Medical Stated complaint: chest pain congestion Time Seen by Provider: 05/01/21 15:20 Source: patient Mode of arrival: ambulatory Limitations: no limitations History of Present Illness HPI narrative: 45-year-old female with history of diabetes, and GERD, anxiety, and high cholesterol presents to ED for coughing, ear pain, sore throat, chest pain,and chills. Patient states her had UR symptoms 1st and then she started having symptoms a couple days ago. Patient states having chest pain with cough with sore throat and chills the past 4 days. Related Data Home Medications Medication Instructions Recorded Confirmed calcium citrate 315 mg-vitamin D3 1 tab PO DAILY 01/01/20 04/28/21 5 mcg (200 unit) tablet (Calcium Citrate + D) alprazolam 1 mg tablet 1 mg PO TID PRN 02/10/20 04/28/21 lancets 33 gauge #100 ea 04/18/20 04/28/21 clonidine HCl 0.1 mg tablet 0.1 mg PO 01/02/21 04/28/21 fluticasone propionate 50 1 spray INTRANASAL BID 02/13/21 04/28/21 mcg/actuation nasal spray,suspension Previous Rx's Medication Instructions Recorded blood-glucose meter (FreeStyle #1 ea 02/25/20 Lite Meter) ferrous sulfate 325 mg (65 mg 325 mg PO DAILY #30 tab 11/22/20 iron) tablet (iron) diazepam 5 mg tablet (Valium) 5 mg PO TID PRN #10 tab 12/29/20 ibuprofen 600 mg tablet 600 mg PO Q6H PRN #30 tab 12/29/20 acarbose 100 mg tablet 100 mg PO TID #90 tab 01/02/21 blood sugar diagnostic (FreeStyle #150 ea 01/02/21 Lite Strips) cyanocobalamin (vitamin B-12) 500 500 mcg SUBLINGUAL .COMPLEX 30 01/02/21 mcg sublingual tablet Days #20 tab lancets 28 gauge (FreeStyle #200 ea 01/02/21 Lancets) rosuvastatin 5 mg tablet (Crestor) 5 mg PO DAILY #30 tab 01/02/21 alcohol swabs (Alcohol Pads) 1 pad TOPICAL TID 30 Days #100 ea 01/06/21 bisacodyl 5 mg tablet,delayed 5 - 10 mg PO BEDTIME PRN 30 Days 03/21/21 release #60 tab dicyclomine 20 mg tablet 20 mg PO QID #360 tab 03/21/21 linaclotide 290 mcg capsule 290 mcg PO DAILY 30 Days #30 cap 03/21/21 (Linzess) metoclopramide HCl 10 mg tablet 10 mg PO QIDACHS #120 tab 03/21/21 (Reglan) omeprazole 40 mg capsule,delayed 40 mg PO DAILY #90 cap 03/21/21 release simethicone 180 mg capsule 180 mg PO QID 30 Days #120 cap 03/21/21 tramadol 50 mg tablet See Rx Instructions .ROUTE 04/25/21 .COMPLEX 30 Days #30 tab cetirizine 10 mg tablet 10 mg PO DAILY #30 tab 04/28/21 ibuprofen 800 mg tablet 800 mg PO TID PRN 30 Days #90 tab 04/28/21 mometasone 0.1 % topical cream 1 appl TOPICAL DAILY PRN #45 g 04/28/21 topiramate 100 mg tablet 100 mg PO BEDTIME 90 Days #90 tab 04/28/21 Allergies Allergy/AdvReac Type Severity Reaction Status Date / Time lisinopril [LISINOPRIL] Allergy Severe ANAPYHLAXIS, Verified 04/28/21 11:33 swelling metformin [METFORMIN] Allergy Severe ANAPHYLAXIS, Verified 04/28/21 11:33 diarrhea sumatriptan [From IMITREX] Allergy Severe ANAPHYLAXIS, Verified 04/28/21 11:33 sedation Review of Systems Review of Systems: Sore throat, ear pain, coughing, chest pain, body aches, and chills. Yes all other systems are reviewed and are negative PMFSH Past Medical History 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 Upper abdominal pain Vitamin D deficiency Surgical History H/O gastric bypass History of esophagogastroduodenoscopy (EGD) History of tubal ligation History of umbilical hernia Hx of bilateral breast reduction surgery Hx of section Hx of cholecystectomy Hx of lithotripsy Family History Family History Father Liver cancer Hypertension Diabetes mellitus CVD (cardiovascular disease) Liver failure Mother Hypercholesterolemia Breast cancer Asthma Depression Maternal Grandmother Diabetes mellitus Hypertension Paternal Grandmother Diabetes mellitus Hypertension Social History Social History Household Members: Significant Other Housing: House Alcohol intake: never Patient Tobacco Use Status: Never used Tobacco Second Hand Smoke Exposure: Yes Advance Directives: Yes Advance Directives Information Provided: Yes Advance Directives on File: No service: No Current occupational status: disabled Physical Exam ED Vital Signs: Vital Signs - 24 hr 05/01/21 15:04 05/01/21 15:23 Temperature 98.3 F 98.6 F Pulse Rate 79 70 Respiratory Rate 18 16 Blood Pressure 125/68 109/67 Pulse Oximetry 98 99 BMI result Body Mass Index 29.7 Const General: cooperative, healthy appearing, comfortable, no acute distress, well developed, alert, awake and Physically active Orientation/consciousness: patient oriented x3 HENMT Head: Yes normal to inspection, Yes No palpable skull fracture present, Yes normocephalic, Yes atraumatic and No abrasion Throat: Yes posterior oropharynx normal, Yes tonsils normal and Yes uvula midline Eyes General: appearance normal, both eyes and all related structures Neck Neck: Yes normal visual inspection, Yes full ROM, Yes no lymphadenopathy, Yes no meningeal signs, Yes trachea midline, Yes supple, No anterior neck swelling and No tender Chest Other: positive for chest wall tenderness on palpation. Chest palpation & inspection: normal inspection of the chest Chest/axillae images: 1. positive for chest wall tenderness on palpation. negative for any ecchymosis, rash, crepitus, or deformity Resp Effort & Inspection: normal respiratory effort and able to speak in complete sentences Auscultation: clear to auscultation bilaterally Cardio Jugular venous distension: no JVD Heart sounds: S1 normal heart sound present and S2 normal heart sound present GI Inspection: Yes normal to inspection and No abdominal wall ecchymosis Palpation (GI): Soft to palpation, not firm, nontender, no guarding and not rigid General: No CVA tenderness and Yes no CVA tenderness Back/Spine/Pelvis Back: no CVA tenderness, No CVA tenderness and No back tenderness Skin General skin exam: no rashes or lesions noted and elasticity normal Neuro General: patient oriented x3, gait normal, no meningeal signs and CN's II-XI intact bilaterally Cranial nerves: Yes CN's II-XII intact bilaterally Extrem Other: Lower extremity negative for swelling, pitting edema, or calf tenderness. General: Yes normal to inspection and Yes full ROM Psych Appearance: grossly normal, well kempt and not disheveled Course Course Course Narrative: Symptoms inidcates most likely URI but due to age and pmh of DM, age, and high cholesterol patient will have a cardiac work up. Covid and Strep ordered. chest xray ordered. Reevaluation(s) Reevaluation #1: EKG negative STEMI. Troponin negative after having symptoms for 4 days. Chest x-ray negative for signs of CHF or pneumonia. COVID swab negative. Not suspecting PE. Perc score 0. Heart score 1. Symptoms due to URI induced costochondritis. Time: 16:54 Medical Decision Making [facility] Narrative Medical decision making narrative: MIGUELINA costochondritis Lab Data Result diagrams: 05/01/21 16:03 05/01/21 16:03 Labs: Lab Results 05/01/21 05/01/21 05/01/21 Range/Units 15:28 15:28 16:03 WBC 10.0 (4.8-10.8) X10*3/uL RBC 3.94 L (4.20-5.50) X10*6/uL Hgb 10.5 L (12.0-16.0) g/dl Hct 33.8 L (37.0-47.0) % MCV 85.8 (80.0-98.0) fL MCH 26.6 L (27.0-33.0) pg MCHC 31.1 (31.0-35.0) g/dl RDW 14.5 (11.0-16.0) % Plt Count 298 (160-400) X10*3/uL MPV 10.5 (9.4-12.3) fL Immature Gran % (Auto) 0.4 (0.0-0.4) % Neut % (Auto) 66.5 (45-73) % Lymph % (Auto) 17.9 L (20-40) % Stewart % (Auto) 10.7 (2-11) % Eos % (Auto) 3.8 (0-4) % Baso % (Auto) 0.7 (0-2) % Lymph # (Auto) 1.8 (1.2-4.9) X10*3/uL Stewart # (Auto) 1.1 (0.1-1.2) X10*3/uL Eos # (Auto) 0.4 (0.0-0.4) X10*3/uL Baso # (Auto) 0.1 (0.0-0.2) X10*3/uL Abs Immat Gran (auto) 0.04 H (0.00-0.03) X10*3/uL Absolute Neuts (auto) 6.7 (2.0-8.3) x10*3/uL Absolute Nucleated RBC 0.000 (0.0-0.012) X10*3/uL Nucleated RBC % (auto) 0.0 (0.0-0.2) /100WBC PT (9.9-13.0) SEC INR (0.9-1.1) APTT (24.1-38.0) SEC Sodium (135-145) mmol/L Potassium (3.3-5.1) mmol/L Chloride (96-108) mmol/L Carbon Dioxide (22-29) mmol/L Anion Gap (12-20) BUN (9-16) mg/dL Creatinine (0.5-1.4) mg/dL Estim Creat Clear Calc Estimated GFR Random Glucose (60-115) mg/dL Calcium (8.4-10.2) mg/dL Total Bilirubin (0.0-1.0) mg/dL AST (5-31) U/L ALT (0-31) U/L Alkaline Phosphatase (39-117) U/L Troponin I High Sens (<3.5-17.0) ng/L Total Protein (6.5-8.0) g/dL Albumin (3.5-5.0) g/dL COVID-19 (JOSUE) Negative (Negative) COVID-19 Clin Com See Note S. pyogenes GrpA VANNESA Negative (Negative) 05/01/21 05/01/21 05/01/21 Range/Units 16:03 16:03 16:03 WBC (4.8-10.8) X10*3/uL RBC (4.20-5.50) X10*6/uL Hgb (12.0-16.0) g/dl Hct (37.0-47.0) % MCV (80.0-98.0) fL MCH (27.0-33.0) pg MCHC (31.0-35.0) g/dl RDW (11.0-16.0) % Plt Count (160-400) X10*3/uL MPV (9.4-12.3) fL Immature Gran % (Auto) (0.0-0.4) % Neut % (Auto) (45-73) % Lymph % (Auto) (20-40) % Stewart % (Auto) (2-11) % Eos % (Auto) (0-4) % Baso % (Auto) (0-2) % Lymph # (Auto) (1.2-4.9) X10*3/uL Stewart # (Auto) (0.1-1.2) X10*3/uL Eos # (Auto) (0.0-0.4) X10*3/uL Baso # (Auto) (0.0-0.2) X10*3/uL Abs Immat Gran (auto) (0.00-0.03) X10*3/uL Absolute Neuts (auto) (2.0-8.3) x10*3/uL Absolute Nucleated RBC (0.0-0.012) X10*3/uL Nucleated RBC % (auto) (0.0-0.2) /100WBC PT 12.3 (9.9-13.0) SEC INR 1.1 (0.9-1.1) APTT 34.2 (24.1-38.0) SEC Sodium 139 (135-145) mmol/L Potassium 4.9 (3.3-5.1) mmol/L Chloride 111 H (96-108) mmol/L Carbon Dioxide 23 (22-29) mmol/L Anion Gap 10 L (12-20) BUN 22 H (9-16) mg/dL Creatinine 0.87 (0.5-1.4) mg/dL Estim Creat Clear Calc 71.5 Estimated GFR > 60 Random Glucose 90 (60-115) mg/dL Calcium 9.5 (8.4-10.2) mg/dL Total Bilirubin 0.3 (0.0-1.0) mg/dL AST 22 (5-31) U/L ALT 16 (0-31) U/L Alkaline Phosphatase 57 (39-117) U/L Troponin I High Sens < 3.5 (<3.5-17.0) ng/L Total Protein 7.3 (6.5-8.0) g/dL Albumin 4.2 (3.5-5.0) g/dL COVID-19 (JOSUE) (Negative) COVID-19 Clin Com S. pyogenes GrpA VANNESA (Negative) ECG Data Interpretation: Normal sinus rhythm. Normal EKG. Ventricular rate 72. Parents of 146. QRS 86 pr QTC 424. Negative STEMI Discharge Plan Discharge Clinical Impression: URI (upper respiratory infection), Acute costochondritis, Chest pain Patient Disposition: Home, Self-Care Instructions: Chest Pain (DC), Costochondritis (ED), Upper Respiratory Infection (DC) Additional Instructions: Her EKG and blood work came back negative for signs of heart attack. Chest x-ray negative for pneumonia. Her COVID swab came back negative. Return to the ED for any swelling of lower extremities, coughing up blood, severe chest pain, shortness of breath on exertion, calf pain, weakness, dizziness, or any other concerning symptoms. Please follow-up with primary care provider Prescriptions: No Action (DME) blood-glucose meter [FreeStyle Lite Meter] Kit See Rx Instructions .ROUTE .MEDSUPPLY Qty: 1 0RF Rx Instructions: As directed once a day alcohol swabs [Alcohol Pads] Pads, Medicated 1 pad topical TID 30 Days Qty: 100 12RF fluticasone propionate 50 mcg/actuation spray,suspension 1 spray intranasal BID 0RF Rx Instructions: administer into each nostril tramadol 50 mg tablet See Rx Instructions .ROUTE .COMPLEX 30 Days Qty: 30 0RF Rx Instructions: 1 tablet 1 to 2 times a day orally ONLY NEEDED for SEVERE PAIN; ferrous sulfate [iron] 325 mg (65 mg iron) Tablet 325 mg PO DAILY Qty: 30 3RF diazepam [Valium] 5 mg tablet 5 mg PO TID PRN (Reason: muscle spasm) Qty: 10 0RF ibuprofen 600 mg tablet 600 mg PO Q6H PRN (Reason: pain) Qty: 30 0RF (DME) lancets 33 gauge misc See Rx Instructions ea Not Applicable TID Qty: 100 0RF Rx Instructions: As directed alprazolam 1 mg tablet 1 mg PO TID PRN (Reason: Anxiety) 0RF cetirizine 10 mg tablet 10 mg PO DAILY Qty: 30 6RF ibuprofen 800 mg tablet 800 mg PO TID PRN (Reason: fever or pain) 30 Days Qty: 90 3RF Rx Instructions: TAKE WITH FOOD topiramate 100 mg tablet 100 mg PO BEDTIME 90 Days Qty: 90 1RF mometasone 0.1 % cream 1 appl topical DAILY PRN (Reason: rash) Qty: 45 1RF calcium citrate-vitamin D3 [Calcium Citrate + D] 315 mg-5 mcg (200 unit) tablet 1 tab PO DAILY 0RF clonidine HCl 0.1 mg tablet 0.1 mg PO 0RF acarbose 100 mg tablet 100 mg PO TID Qty: 90 11RF (DME) FreeStyle Lite Strips Strip See Rx Instructions .ROUTE .MEDSUPPLY Qty: 150 12RF Rx Instructions: As 4 x/day (DME) lancets [FreeStyle Lancets] 28 gauge misc See Rx Instructions .ROUTE .MEDSUPPLY Qty: 200 12RF Rx Instructions: As directed 4x/day rosuvastatin [Crestor] 5 mg tablet 5 mg PO DAILY Qty: 30 12RF cyanocobalamin (vitamin B-12) 500 mcg tablet, sublingual 500 mcg sublingual .COMPLEX 30 Days Qty: 20 11RF Rx Instructions: 500 mcg sublingual daily, saturday - saturday; Linzess 290 mcg capsule 290 mcg PO DAILY 30 Days Qty: 30 6RF metoclopramide HCl [Reglan] 10 mg tablet 10 mg PO QIDACHS Qty: 120 6RF omeprazole 40 mg capsule,delayed release(DR/EC) 40 mg PO DAILY Qty: 90 2RF simethicone 180 mg capsule 180 mg PO QID 30 Days Qty: 120 6RF Rx Instructions: after meals bisacodyl 5 mg tablet,delayed release (DR/EC) 5 - 10 mg PO BEDTIME PRN (Reason: constipation) 30 Days Qty: 60 6RF dicyclomine 20 mg tablet 20 mg PO QID Qty: 360 2RF Interventions: ED Discharge Assessment Last Done: 05/01/21 17:03 Discharge Date/Time: 05/01/21 17:04 Print Language: Ivorian
[2021-05-01 16:07] LABS: MANUAL DIFF FLAG NO
[2021-05-01 16:16] LABS: Basophils Absolute Auto 0.1 X10*3/uL (0.0-0.2); Basophils Percent Auto 0.7 % (0-2); Eosinophils Absolute Auto 0.4 X10*3/uL (0.0-0.4); Eosinophils Percent Auto 3.8 % (0-4); Hematocrit 33.8 % (37.0-47.0); Hemoglobin 10.5 g/dl (12.0-16.0); Imm Gran Abs Auto 0.04 X10*3/uL (0.00-0.03); Imm Gran Pct Auto 0.4 % (0.0-0.4); Lymphocytes Absolute Auto 1.8 X10*3/uL (1.2-4.9); Lymphocytes Percent Auto 17.9 % (20-40); Mean Corpuscular HGB Conc 31.1 g/dl (31.0-35.0); Mean Corpuscular Hemoglobin 26.6 pg (27.0-33.0); Mean Corpuscular Volume 85.8 fL (80.0-98.0); Mean Platelet Volume 10.5 fL (9.4-12.3); Monocytes Absolute Auto 1.1 X10*3/uL (0.1-1.2); Monocytes Percent Auto 10.7 % (2-11); Neutrophils Absolute Auto 6.7 x10*3/uL (2.0-8.3); Neutrophils Percent Auto 66.5 % (45-73); Platelet Count 298 X10*3/uL (160-400); Red Blood Count 3.94 X10*6/uL (4.20-5.50); Red Cell Distribution Width 14.5 % (11.0-16.0)
[2021-05-01 16:23] LABS: INTERNATIONAL NORM RATIO 1.1 (0.9-1.1); Prothrombin Time 12.3 SEC (9.9-13.0)
[2021-05-01 16:25] LABS: Alanine Aminotransferase 16 U/L (0-31); Albumin Level 4.2 g/dL (3.5-5.0); Alkaline Phosphatase 57 U/L (39-117); Anion Gap 10 (12-20); Aspartate Amino Transferase 22 U/L (5-31); Bilirubin Total 0.3 mg/dL (0.0-1.0); Blood Urea Nitrogen 22 mg/dL (9-16); Calcium 9.5 mg/dL (8.4-10.2); Carbon Dioxide 23 mmol/L (22-29); Chloride 111 mmol/L (96-108); Creatinine Clr Calc Pharmacy 71.5; Estimated Glomerular Filt Rate > 60; Glucose Random 90 mg/dL (60-115); Partial Thromboplastin Time 34.2 SEC (24.1-38.0); Potassium 4.9 mmol/L (3.3-5.1); Sodium 139 mmol/L (135-145); Total Protein 7.3 g/dL (6.5-8.0)
[2021-05-01 16:29] LABS: Troponin-I High Sensitivity < 3.5 ng/L (<3.5-17.0)
== END 2021-05-01 17:04 | disposition home or self-care (01) ==
PROVIDERS: Physician Assistant; Emergency Provider Emergency Medicine; PCP Internal Medicine
DX: J06.9 Acute upper respiratory infection, unspecified (principal); M94.0 Chondrocostal junction syndrome [Tietze]; R07.9 Chest pain, unspecified; Z20.822 Contact with and (suspected) exposure to COVID-19; E11.9 Type 2 diabetes mellitus without complications; E78.5 Hyperlipidemia, unspecified; Z79.02 Long term (current) use of antithrombotics/antiplatelets
CPT/HCPCS: 36415; 71045; 80053; 84484; 85025; 85610; 85730; 87635; 87651; 93005; 99283

== ENCOUNTER 2021-05-17 08:28 | Outpatient (REF) | payer MEDICARE, MEDICAID, SELFPAY ==
[2021-05-17 14:36] LABS: CT PCR NOT DETECTED (Not Detect.); NG PCR NOT DETECTED (Not Detect.)
[2021-05-19 23:36] LABS: HPV mRNA E6/E7 rflx Not Detected (Not Detected)
== END 2021-05-17 08:29 | disposition home or self-care (01) ==
LOC: HO.LAB 08:28
PROVIDERS: PCP Internal Medicine; Visit Provider Obstetrics & Gynecology
DX: Z01.419 Encounter for gynecological examination (general) (routine) without abnormal findings (principal); R10.2 Pelvic and perineal pain; N93.9 Abnormal uterine and vaginal bleeding, unspecified; R32 Unspecified urinary incontinence; Z11.51 Encounter for screening for human papillomavirus (HPV); Z11.3 Encounter for screening for infections with a predominantly sexual mode of transmission; Z11.8 Encounter for screening for other infectious and parasitic diseases; Z13.29 Encounter for screening for other suspected endocrine disorder
CPT/HCPCS: 87491; 87591; 87624; 88142; 99202

== ENCOUNTER → 2021-05-24 09:25 | Outpatient (BNVA) | payer MEDICARE, MEDICAID, SELFPAY | PROVIDERS: PCP Internal Medicine; Referring Provider Internal Medicine; Visit Provider Internal Medicine Cardiovascular Disease | DX: M94.0 Chondrocostal junction syndrome [Tietze] (principal) | CPT/HCPCS: 93005; 99212 ==

== ENCOUNTER 2021-06-06 08:28 | Outpatient (REF) | payer MEDICARE, MEDICAID, SELFPAY | END 2021-06-06 08:29 | disposition home or self-care (01) | LOC: HO.LAB 08:28 | PROVIDERS: Visit Provider Obstetrics & Gynecology | DX: N93.9 Abnormal uterine and vaginal bleeding, unspecified (principal) | CPT/HCPCS: 58100; 88305 ==

== ENCOUNTER 2021-06-12 13:33 | Outpatient (REF) | payer MEDICARE, MEDICAID, SELFPAY ==
--- NOTE | ~2021-06-12 | US_ITS ---
EXAMINATION: US PELVIS CLINICAL INFORMATION: Abnormal uterine and vaginal bleeding COMPARISON: Previous CT of the abdomen and pelvis August 2020 TECHNIQUE: Ultrasound of the pelvis is performed using both transabdominal and transvaginal transducers along with Doppler. Transvaginal imaging is performed due to inadequate visualization transabdominally. FINDINGS: The uterus is anteverted and measures 8.2 x 4.6 x 6.8 cm in dimension. No focal uterine lesion is seen. Endometrial thickness is normal measuring 0.4 cm. There are nabothian cysts in the cervix. The ovaries are normal. The right ovary measures 4.1 x 3.4 x 2.3 cm. The left ovary measures 3.9 x 3 x 2.1 cm. There is no fluid in the pelvis. US/US pelvic and transvaginal IMPRESSION: Unremarkable exam.
== END 2021-06-12 13:34 | disposition home or self-care (01) ==
LOC: HO.US 13:33
PROVIDERS: Visit Provider Obstetrics & Gynecology
DX: N93.9 Abnormal uterine and vaginal bleeding, unspecified (principal)
CPT/HCPCS: 76830; 76856

== ENCOUNTER 2021-06-19 08:34 | Outpatient (REF) | payer MEDICARE, MEDICAID, SELFPAY ==
[2021-06-19 08:58] LABS: MANUAL DIFF FLAG NO
[2021-06-19 09:08] LABS: Basophils Absolute Auto 0.1 X10*3/uL (0.0-0.2); Eosinophils Absolute Auto 0.1 X10*3/uL (0.0-0.4); Eosinophils Percent Auto 1.9 % (0-4); Hematocrit 35.8 % (37.0-47.0); Hemoglobin 11.1 g/dl (12.0-16.0); Imm Gran Abs Auto 0.02 X10*3/uL (0.00-0.03); Imm Gran Pct Auto 0.3 % (0.0-0.4); Lymphocytes Absolute Auto 2.1 X10*3/uL (1.2-4.9); Lymphocytes Percent Auto 30.8 % (20-40); Mean Corpuscular Hemoglobin 27.1 pg (27.0-33.0); Mean Corpuscular Volume 87.3 fL (80.0-98.0); Mean Platelet Volume 10.4 fL (9.4-12.3); Monocytes Absolute Auto 0.8 X10*3/uL (0.1-1.2); Monocytes Percent Auto 10.9 % (2-11); Neutrophils Absolute Auto 3.8 x10*3/uL (2.0-8.3); Neutrophils Percent Auto 55.1 % (45-73); Platelet Count 288 X10*3/uL (160-400); White Blood Count 6.9 X10*3/uL (4.8-10.8)
[2021-06-19 09:30] LABS: Alanine Aminotransferase 18 U/L (0-31); Albumin Level 4.4 g/dL (3.5-5.0); Alkaline Phosphatase 56 U/L (39-117); Anion Gap 9 (12-20); Aspartate Amino Transferase 20 U/L (5-31); Bilirubin Total 0.4 mg/dL (0.0-1.0); Blood Urea Nitrogen 18 mg/dL (9-16); Calcium 9.5 mg/dL (8.4-10.2); Carbon Dioxide 24 mmol/L (22-29); Chloride 108 mmol/L (96-108); Cholesterol 116 mg/dL; Estimated Glomerular Filt Rate > 60; Glucose Fasting 84 mg/dL (60-99); HDL Cholesterol 52 mg/dL; LDL Cholesterol Calculated 47 mg/dl; Potassium 4.1 mmol/L (3.3-5.1); Sodium 137 mmol/L (135-145); Total Protein 7.7 g/dL (6.5-8.0); Triglycerides 89 mg/dL
[2021-06-19 09:50] LABS: TSH reflex Free T4 4.23 uIU/mL (0.32-4.0); Vitamin D 25-OH Total 39.8 ng/mL (>30)
[2021-06-19 10:38] LABS: Free T4 (Free Thyroxine) 0.95 ng/dL (0.71-1.85)
[2021-06-19 11:16] LABS: Appearance Urine HAZY; Color Urine YELLOW; Glucose Urine UA NEG (NEG); Leukocyte Esterase Urine NEG (NEG); Nitrite Urine NEG (NEG); Specific Gravity - Urine 1.015 (1.005-1.025); Urine Blood NEG (NEG); Urine Ketones NEG (NEG); Urine Protein NEG (NEG-TRACE)
[2021-06-19 11:21] LABS: Vitamin B12 699 pg/mL (200-900)
[2021-06-21 17:51] LABS: Erythropoietin (EPO) 9.1 mIU/mL (2.6-18.5)
== END 2021-06-19 08:35 | disposition home or self-care (01) ==
LOC: HO.LAB 08:34
PROVIDERS: Absent Provider Obstetrics & Gynecology; PCP Internal Medicine; Visit Provider Nurse Practitioner Gerontology
DX: I10 Essential (primary) hypertension (principal); E78.00 Pure hypercholesterolemia, unspecified; D64.9 Anemia, unspecified; E53.8 Deficiency of other specified B group vitamins; E55.9 Vitamin D deficiency, unspecified
CPT/HCPCS: 36415; 80053; 80061; 81003; 82306; 82607; 82668; 84439; 84443; 85025

== ENCOUNTER → 2021-06-20 12:56 | Outpatient (BNVA) | payer MEDICARE, MEDICAID, SELFPAY | PROVIDERS: Visit Provider Obstetrics & Gynecology | DX: N93.9 Abnormal uterine and vaginal bleeding, unspecified (principal); D64.9 Anemia, unspecified; R87.610 Atypical squamous cells of undetermined significance on cytologic smear of cervix (ASC-US); E03.8 Other specified hypothyroidism | CPT/HCPCS: Q3014 ==

== ENCOUNTER → 2021-06-26 13:25 | Outpatient (BNVA) | payer MEDICARE, MEDICAID, SELFPAY | PROVIDERS: PCP Nurse Practitioner Acute Care | DX: N20.0 Calculus of kidney (principal); R32 Unspecified urinary incontinence | CPT/HCPCS: 51798; 99212 ==

== ENCOUNTER → 2021-07-04 10:47 | Outpatient (BNVA) | payer MEDICARE, MEDICAID, SELFPAY | PROVIDERS: PCP Internal Medicine; Visit Provider Nurse Practitioner Gerontology | DX: K91.2 Postsurgical malabsorption, not elsewhere classified (principal); E78.5 Hyperlipidemia, unspecified; E53.8 Deficiency of other specified B group vitamins; E11.9 Type 2 diabetes mellitus without complications | CPT/HCPCS: 82947; 83036; 99212 ==

== ENCOUNTER 2021-08-11 08:25 | Outpatient (REF) | payer MEDICARE, MEDICAID, SELFPAY ==
[2021-08-11 08:52] LABS: MANUAL DIFF FLAG NO
[2021-08-11 09:06] LABS: Basophils Absolute Auto 0.1 X10*3/uL (0.0-0.2); Basophils Percent Auto 0.9 % (0-2); Eosinophils Absolute Auto 0.2 X10*3/uL (0.0-0.4); Eosinophils Percent Auto 2.6 % (0-4); Hematocrit 36.6 % (37.0-47.0); Hemoglobin 11.6 g/dl (12.0-16.0); Imm Gran Abs Auto 0.03 X10*3/uL (0.00-0.03); Imm Gran Pct Auto 0.4 % (0.0-0.4); Lymphocytes Absolute Auto 1.8 X10*3/uL (1.2-4.9); Lymphocytes Percent Auto 24.8 % (20-40); Mean Corpuscular HGB Conc 31.7 g/dl (31.0-35.0); Mean Corpuscular Volume 88.4 fL (80.0-98.0); Mean Platelet Volume 10.3 fL (9.4-12.3); Monocytes Absolute Auto 0.8 X10*3/uL (0.1-1.2); Monocytes Percent Auto 11.1 % (2-11); Neutrophils Absolute Auto 4.4 x10*3/uL (2.0-8.3); Neutrophils Percent Auto 60.2 % (45-73); Platelet Count 299 X10*3/uL (160-400); Red Blood Count 4.14 X10*6/uL (4.20-5.50); Red Cell Distribution Width 14.4 % (11.0-16.0); White Blood Count 7.4 X10*3/uL (4.8-10.8)
[2021-08-11 09:20] LABS: Estimated Average Glucose 94 mg/dL; Hemoglobin A1c % 4.9 %
[2021-08-11 09:50] LABS: Alanine Aminotransferase 20 U/L (0-31); Alkaline Phosphatase 60 U/L (39-117); Anion Gap 9 (12-20); Aspartate Amino Transferase 22 U/L (5-31); Bilirubin Total 0.4 mg/dL (0.0-1.0); Blood Urea Nitrogen 19 mg/dL (9-16); Calcium 9.4 mg/dL (8.4-10.2); Carbon Dioxide 25 mmol/L (22-29); Chloride 109 mmol/L (96-108); Cholesterol 116 mg/dL; Estimated Glomerular Filt Rate > 60; Glucose Fasting 84 mg/dL (60-99); HDL Cholesterol 53 mg/dL; LDL Cholesterol Calculated 47 mg/dl; Potassium 4.5 mmol/L (3.3-5.1); Sodium 138 mmol/L (135-145); Total Protein 7.3 g/dL (6.5-8.0); Triglycerides 80 mg/dL
[2021-08-11 09:58] LABS: Free T4 (Free Thyroxine) 0.86 ng/dL (0.71-1.85); Thyroid Stimulating Hormone 2.58 uIU/mL (0.32-4.0); Vitamin D 25-OH Total 33.8 ng/mL (>30)
[2021-08-11 10:37] LABS: Appearance Urine HAZY; Color Urine YELLOW; Glucose Urine UA NEG (NEG); Leukocyte Esterase Urine NEG (NEG); Nitrite Urine NEG (NEG); Urine Blood NEG (NEG); Urine Ketones NEG (NEG); Urine Protein NEG (NEG-TRACE)
[2021-08-11 10:54] LABS: Creatinine Urine 134.83 mg/dL; Microalbum/Creatinine Ratio Ur 4.4 ug/mg cr
== END 2021-08-11 08:26 | disposition home or self-care (01) ==
LOC: HO.LAB 08:25
PROVIDERS: PCP Internal Medicine; Visit Provider Internal Medicine
DX: I10 Essential (primary) hypertension (principal); E78.00 Pure hypercholesterolemia, unspecified; E03.9 Hypothyroidism, unspecified; E11.9 Type 2 diabetes mellitus without complications; E55.9 Vitamin D deficiency, unspecified
CPT/HCPCS: 36415; 80053; 80061; 81003; 82043; 82306; 83036; 84439; 84443; 85025

== ENCOUNTER 2021-08-13 10:49 | Emergency (ER) | payer MEDICARE, MEDICAID, SELFPAY ==
[2021-08-13 11:35] VITALS: BP 111/84; PULSE 88; RESP 18; TEMP 36.8; O2SAT 98; BMI 30.7
[2021-08-13 12:29] LABS: MANUAL DIFF FLAG NO
[2021-08-13 12:30] LABS: Basophils Absolute Auto 0.1 X10*3/uL (0.0-0.2); Basophils Percent Auto 0.8 % (0-2); Eosinophils Absolute Auto 0.1 X10*3/uL (0.0-0.4); Eosinophils Percent Auto 1.3 % (0-4); Hematocrit 36.3 % (37.0-47.0); Hemoglobin 11.4 g/dl (12.0-16.0); Imm Gran Abs Auto 0.04 X10*3/uL (0.00-0.03); Imm Gran Pct Auto 0.5 % (0.0-0.4); Lymphocytes Absolute Auto 1.9 X10*3/uL (1.2-4.9); Lymphocytes Percent Auto 25.2 % (20-40); Mean Corpuscular HGB Conc 31.4 g/dl (31.0-35.0); Mean Corpuscular Volume 85.8 fL (80.0-98.0); Mean Platelet Volume 10.2 fL (9.4-12.3); Monocytes Absolute Auto 0.6 X10*3/uL (0.1-1.2); Monocytes Percent Auto 8.5 % (2-11); Neutrophils Absolute Auto 4.8 x10*3/uL (2.0-8.3); Neutrophils Percent Auto 63.7 % (45-73); Platelet Count 282 X10*3/uL (160-400); Red Blood Count 4.23 X10*6/uL (4.20-5.50); Red Cell Distribution Width 14.3 % (11.0-16.0); White Blood Count 7.5 X10*3/uL (4.8-10.8)
[2021-08-13 12:31] LABS: Appearance Urine CLEAR; Color Urine YELLOW; Glucose Urine UA NEG (NEG); Leukocyte Esterase Urine NEG (NEG); Nitrite Urine NEG (NEG); Specific Gravity - Urine 1.015 (1.005-1.025); Urine Blood NEG (NEG); Urine Ketones NEG (NEG); Urine Protein NEG (NEG-TRACE)
[2021-08-13 12:45] LABS: Alanine Aminotransferase 23 U/L (0-31); Albumin Level 4.1 g/dL (3.5-5.0); Alkaline Phosphatase 58 U/L (39-117); Anion Gap 12 (12-20); Aspartate Amino Transferase 26 U/L (5-31); Bilirubin Total 0.4 mg/dL (0.0-1.0); Blood Urea Nitrogen 17 mg/dL (9-16); Carbon Dioxide 23 mmol/L (22-29); Chloride 110 mmol/L (96-108); Creatinine Clr Calc Pharmacy 76.2; Estimated Glomerular Filt Rate > 60; Glucose Random 91 mg/dL (60-115); Potassium 4.5 mmol/L (3.3-5.1); Sodium 140 mmol/L (135-145); Total Protein 7.4 g/dL (6.5-8.0)
[2021-08-13 12:47] LABS: COVID-19 Test Negative (Negative)
--- NOTE | 2021-08-13 13:43 | PC.NURSE ---
pt drinking gingerale, no nausea or vomiting. pt c/o headache and sinus pressure.
--- NOTE | 2021-08-13 14:42 | ED_ITS ---
HPI - General Adult General Chief complaint: General Medical Stated complaint: stomach pain, headache Time Seen by Provider: 08/13/21 13:34 History of Present Illness HPI narrative: Patient complains of a headache sinus pressure sinus pain and congestion for 2 days, she also thinks she ate something bad yesterday and did have some abdominal pain yesterday in the epigastric area but today she is eating drinking no nausea no vomiting no abdominal pain She does have a history of gastric bypass surgery Nursing note had mentioned abdominal pain and she said she had had mild discomfort in her upper abdomen earlier but there is no pain or discomfort now and the discomfort was similar to prior episodes of bloating and has completely resolved and was mild Related Data Home Medications Medication Instructions Recorded Confirmed calcium citrate 315 mg-vitamin D3 1 tab PO DAILY 01/01/20 07/04/21 5 mcg (200 unit) tablet (Calcium Citrate + D) alprazolam 1 mg tablet 1 mg PO TID PRN 02/10/20 05/26/21 clonidine HCl 0.1 mg tablet 0.1 mg PO DAILY 01/02/21 05/26/21 cetirizine 10 mg tablet 10 mg PO DAILY PRN 05/26/21 05/26/21 dicyclomine 20 mg tablet 20 mg PO QID PRN 05/26/21 05/26/21 metoclopramide HCl 10 mg tablet 10 mg PO QIDACHS PRN 05/26/21 05/26/21 (Reglan) omeprazole 40 mg capsule,delayed 40 mg PO DAILY PRN 05/26/21 05/26/21 release doxepin 10 mg capsule 10 mg PO BEDTIME 06/26/21 multivitamin-ferrous 1 tab PO DAILY 06/26/21 fumarate-folic acid 18 mg-400 mcg tablet (Certavite-Antioxidant) Previous Rx's Medication Instructions Recorded blood-glucose meter (FreeStyle #1 ea 02/25/20 Lite Meter) bisacodyl 5 mg tablet,delayed 5 - 10 mg PO BEDTIME PRN 30 Days 03/21/21 release #60 tab linaclotide 290 mcg capsule 290 mcg PO DAILY 30 Days #30 cap 03/21/21 (Linzess) simethicone 180 mg capsule 180 mg PO QID 30 Days #120 cap 03/21/21 ibuprofen 800 mg tablet 800 mg PO TID PRN 30 Days #90 tab 04/28/21 topiramate 100 mg tablet 100 mg PO BEDTIME 90 Days #90 tab 04/28/21 ferrous sulfate 325 mg (65 mg 325 mg PO DAILY #60 tab 05/26/21 iron) tablet acarbose 100 mg tablet See Rx Instructions PO QID #90 tab 07/04/21 alcohol swabs (Alcohol Pads) 1 pad TOPICAL TID 30 Days #100 ea 07/04/21 blood sugar diagnostic (FreeStyle #150 ea 07/04/21 Lite Strips) cyanocobalamin (vitamin B-12) 500 500 mcg SUBLINGUAL .COMPLEX 30 07/04/21 mcg sublingual tablet Days #20 tab lancets 28 gauge (FreeStyle #200 ea 07/04/21 Lancets) rosuvastatin 5 mg tablet (Crestor) 5 mg PO DAILY #30 tab 07/04/21 fluticasone propionate 50 1 spray INTRANASAL DAILY #48 ml 07/17/21 mcg/actuation nasal spray,suspension mometasone 0.1 % topical cream 1 appl TOPICAL DAILY PRN #45 g 07/17/21 oxybutynin chloride 10 mg 10 mg PO DAILY 30 Days #90 tab 07/17/21 tablet,extended release 24 hr tramadol 50 mg tablet See Rx Instructions .ROUTE 07/17/21 .COMPLEX 30 Days #30 tab levothyroxine 25 mcg tablet 25 mcg PO DAILY #30 tab 07/21/21 acetaminophen 500 mg tablet 1,000 mg PO QID PRN #30 tab 08/13/21 amoxicillin 500 mg tablet 500 mg PO TID 7 Days #21 tab 08/13/21 oxycodone 5 mg tablet 5 mg PO Q6H PRN #10 tab 08/13/21 Allergies Allergy/AdvReac Type Severity Reaction Status Date / Time lisinopril [LISINOPRIL] Allergy Severe ANAPYHLAXIS, Verified 08/13/21 11:35 swelling metformin [METFORMIN] Allergy Severe ANAPHYLAXIS, Verified 08/13/21 11:35 diarrhea sumatriptan [From IMITREX] Allergy Severe ANAPHYLAXIS, Verified 08/13/21 11:35 sedation Review of Systems Review of Systems: Positive for mild headache around the front of her eyes, sinus pressure, congestion Negative no fever no chills no abrupt onset of headache, no confusion no dizziness no fainting no syncope no feeling faint no vision changes, no sore throat no cough no sputum no shortness of breath no abdominal pain no nausea or vomiting no changes to bowel or bladder no dysuria no blood in stool Yes all other systems are reviewed and are negative PMFSH Past Medical History Source: nursing notes reviewed 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 Upper abdominal pain Vitamin D deficiency Surgical History H/O gastric bypass History of esophagogastroduodenoscopy (EGD) History of tubal ligation History of umbilical hernia Hx of bilateral breast reduction surgery Hx of section Hx of cholecystectomy Hx of lithotripsy Family History Family History Father Liver cancer Hypertension Diabetes mellitus CVD (cardiovascular disease) Liver failure Mother Hypercholesterolemia Breast cancer Asthma Depression Maternal Grandmother Diabetes mellitus Hypertension Paternal Grandmother Diabetes mellitus Hypertension Social History Social History Household Members: Significant Other Housing: House Alcohol intake: never Patient Tobacco Use Status: Never used Tobacco e-Cigarette/Vaping Use: Never Used Second Hand Smoke Exposure: Yes Advance Directives: No Advance Directives Information Provided: Yes service: No Current occupational status: disabled Cognitive needs: No Hearing needs: No Vision needs: Yes Physical Exam ED Vital Signs: Vital Signs - 24 hr 08/13/21 11:35 Temperature 98.2 F Pulse Rate 88 Respiratory Rate 18 Blood Pressure 111/84 Pulse Oximetry 98 BMI result Body Mass Index 30.7 General appearance no acute distress Anicteric no pallor The sinuses there was sinus tenderness and worse discomfort with bending her head down There was mild congestion The pharynx was clear Neck is supple Chest clear to auscultation Abdomen soft nontender Extremities no edema Skin no rashes Course Course Course Narrative: Nursing complaint of abdominal pain was discussed with patient who said she had had mild pain consistent with other chronic episodes of bloating earlier but the pain was gone now she has no abdominal pain now is eating drinking not vomiting and her only complaint is headache sinus congestion and sinus pressure which felt similar to a prior episode of sinusitis Labs had been sent from triage and were reviewed and there were no acute abnormalities Patient was treated with amoxicillin analgesics and told to return any time if she develops abdominal pain or any concerns Medical Decision Making Lab Data Result diagrams: 08/13/21 12:22 08/13/21 12:22 Labs: Lab Results 08/13/21 08/13/21 08/13/21 Range/Units 12: 12: 12:22 WBC 7.5 (4.8-10.8) X10*3/uL RBC 4.23 (4.20-5.50) X10*6/uL Hgb 11.4 L (12.0-16.0) g/dl Hct 36.3 L (37.0-47.0) % MCV 85.8 (80.0-98.0) fL MCH 27.0 (27.0-33.0) pg MCHC 31.4 (31.0-35.0) g/dl RDW 14.3 (11.0-16.0) % Plt Count 282 (160-400) X10*3/uL MPV 10.2 (9.4-12.3) fL Immature Gran % (Auto) 0.5 H (0.0-0.4) % Neut % (Auto) 63.7 (45-73) % Lymph % (Auto) 25.2 (20-40) % [place] % (Auto) 8.5 (2-11) % Eos % (Auto) 1.3 (0-4) % Baso % (Auto) 0.8 (0-2) % Lymph # (Auto) 1.9 (1.2-4.9) X10*3/uL [place] # (Auto) 0.6 (0.1-1.2) X10*3/uL Eos # (Auto) 0.1 (0.0-0.4) X10*3/uL Baso # (Auto) 0.1 (0.0-0.2) X10*3/uL Abs Immat Gran (auto) 0.04 H (0.00-0.03) X10*3/uL Absolute Neuts (auto) 4.8 (2.0-8.3) x10*3/uL Absolute Nucleated RBC 0.000 (0.0-0.012) X10*3/uL Nucleated RBC % (auto) 0.0 (0.0-0.2) /100WBC Sodium 140 (135-145) mmol/L Potassium 4.5 (3.3-5.1) mmol/L Chloride 110 H (96-108) mmol/L Carbon Dioxide 23 (22-29) mmol/L Anion Gap 12 (12-20) BUN 17 H (9-16) mg/dL Creatinine 0.83 (0.5-1.4) mg/dL Estim Creat Clear Calc 76.2 Estimated GFR > 60 Random Glucose 91 (60-115) mg/dL Calcium 9.0 (8.4-10.2) mg/dL Total Bilirubin 0.4 (0.0-1.0) mg/dL AST 26 (5-31) U/L ALT 23 (0-31) U/L Alkaline Phosphatase 58 (39-117) U/L Total Protein 7.4 (6.5-8.0) g/dL Albumin 4.1 (3.5-5.0) g/dL Urine Color Urine Appearance Urine pH (5.0-8.0) Ur Specific [place] (1.005-1.025) Urine Protein (NEG-TRACE) MG/DL Urine Glucose (UA) (NEG) MG/DL Urine Ketones (NEG) MG/DL Urine Blood (NEG) Urine Nitrite (NEG) Ur Leukocyte Esterase (NEG) COVID-19 ([facility]) Negative (Negative) COVID-19 Clin Com See Note 08/13/21 Range/Units 12:22 WBC (4.8-10.8) X10*3/uL RBC (4.20-5.50) X10*6/uL Hgb (12.0-16.0) g/dl Hct (37.0-47.0) % MCV (80.0-98.0) fL MCH (27.0-33.0) pg MCHC (31.0-35.0) g/dl RDW (11.0-16.0) % Plt Count (160-400) X10*3/uL MPV (9.4-12.3) fL Immature Gran % (Auto) (0.0-0.4) % Neut % (Auto) (45-73) % Lymph % (Auto) (20-40) % [place] % (Auto) (2-11) % Eos % (Auto) (0-4) % Baso % (Auto) (0-2) % Lymph # (Auto) (1.2-4.9) X10*3/uL [place] # (Auto) (0.1-1.2) X10*3/uL Eos # (Auto) (0.0-0.4) X10*3/uL Baso # (Auto) (0.0-0.2) X10*3/uL Abs Immat Gran (auto) (0.00-0.03) X10*3/uL Absolute Neuts (auto) (2.0-8.3) x10*3/uL Absolute Nucleated RBC (0.0-0.012) X10*3/uL Nucleated RBC % (auto) (0.0-0.2) /100WBC Sodium (135-145) mmol/L Potassium (3.3-5.1) mmol/L Chloride (96-108) mmol/L Carbon Dioxide (22-29) mmol/L Anion Gap (12-20) BUN (9-16) mg/dL Creatinine (0.5-1.4) mg/dL Estim Creat Clear Calc Estimated GFR Random Glucose (60-115) mg/dL Calcium (8.4-10.2) mg/dL Total Bilirubin (0.0-1.0) mg/dL AST (5-31) U/L ALT (0-31) U/L Alkaline Phosphatase (39-117) U/L Total Protein (6.5-8.0) g/dL Albumin (3.5-5.0) g/dL Urine Color YELLOW Urine Appearance CLEAR Urine pH 7.0 (5.0-8.0) Ur Specific [place] 1.015 (1.005-1.025) Urine Protein NEG (NEG-TRACE) MG/DL Urine Glucose (UA) NEG (NEG) MG/DL Urine Ketones NEG (NEG) MG/DL Urine Blood NEG (NEG) Urine Nitrite NEG (NEG) Ur Leukocyte Esterase NEG (NEG) COVID-19 ([facility]) (Negative) COVID-19 Clin Com Discharge Plan Discharge Clinical Impression: Sinusitis Patient Disposition: Home, Self-Care Additional Instructions: You may have sinusitis so we are treating with antibiotic amoxicillin Use probiotics, available and vitamin section, to help prevent diarrhea from antibiotics Your abdominal pain was gone here but if it returns we want to re-evaluate you so come back to the ER if you develop abdomen pain or vomiting Tylenol or oxycodone if needed for pain Return any time any worse condition or any concerns Prescriptions: New oxycodone 5 mg tablet 5 mg PO Q6H PRN (Reason: pain) Qty: 10 0RF acetaminophen 500 mg tablet 1,000 mg PO QID PRN (Reason: pain) Qty: 30 0RF amoxicillin 500 mg tablet 500 mg PO TID 7 Days Qty: 21 0RF No Action (DME) blood-glucose meter [FreeStyle Lite Meter] Kit See Rx Instructions .ROUTE .MEDSUPPLY Qty: 1 0RF Rx Instructions: As directed once a day oxybutynin chloride 10 mg tablet extended release 24 hr 10 mg PO DAILY 30 Days Qty: 90 3RF fluticasone propionate 50 mcg/actuation spray,suspension 1 spray intranasal DAILY Qty: 48 1RF mometasone 0.1 % cream 1 appl topical DAILY PRN (Reason: rash) Qty: 45 1RF tramadol 50 mg tablet See Rx Instructions .ROUTE .COMPLEX 30 Days Qty: 30 0RF Rx Instructions: 1 tablet 1 to 2 times a day orally ONLY NEEDED for SEVERE PAIN; levothyroxine 25 mcg tablet 25 mcg PO DAILY Qty: 30 0RF cetirizine 10 mg tablet 10 mg PO DAILY PRN (Reason: Allergy Symptoms) 0RF omeprazole 40 mg capsule,delayed release(DR/EC) 40 mg PO DAILY PRN (Reason: GERD) 0RF dicyclomine 20 mg tablet 20 mg PO QID PRN (Reason: Abdominal Pain) 0RF metoclopramide HCl [Reglan] 10 mg tablet 10 mg PO QIDACHS PRN (Reason: Nausea) 0RF ferrous sulfate 325 mg (65 mg iron) Tablet 325 mg PO DAILY Qty: 60 3RF alprazolam 1 mg tablet 1 mg PO TID PRN (Reason: Anxiety) 0RF ibuprofen 800 mg tablet 800 mg PO TID PRN (Reason: fever or pain) 30 Days Qty: 90 3RF Rx Instructions: TAKE WITH FOOD topiramate 100 mg tablet 100 mg PO BEDTIME 90 Days Qty: 90 1RF calcium citrate-vitamin D3 [Calcium Citrate + D] 315 mg-5 mcg (200 unit) tablet 1 tab PO DAILY 0RF clonidine HCl 0.1 mg tablet 0.1 mg PO DAILY 0RF doxepin 10 mg capsule 10 mg PO BEDTIME 0RF Certavite-Antioxidant 18-400 mg-mcg tablet 1 tab PO DAILY 0RF Linzess 290 mcg capsule 290 mcg PO DAILY 30 Days Qty: 30 6RF simethicone 180 mg capsule 180 mg PO QID 30 Days Qty: 120 6RF Rx Instructions: after meals bisacodyl 5 mg tablet,delayed release (DR/EC) 5 - 10 mg PO BEDTIME PRN (Reason: constipation) 30 Days Qty: 60 6RF rosuvastatin [Crestor] 5 mg tablet 5 mg PO DAILY Qty: 30 12RF (DME) lancets [FreeStyle Lancets] 28 gauge misc See Rx Instructions .ROUTE .MEDSUPPLY Qty: 200 12RF Rx Instructions: As directed 4x/day (DME) FreeStyle Lite Strips Strip See Rx Instructions .ROUTE .MEDSUPPLY Qty: 150 12RF Rx Instructions: As 4 x/day alcohol swabs [Alcohol Pads] Pads, Medicated 1 pad topical TID 30 Days Qty: 100 12RF acarbose 100 mg tablet See Rx Instructions PO QID Qty: 90 11RF Rx Instructions: 1/2 tab breakfast, 1 tab lunch and dinner, 1/2 tab for hs snack PO 4 times a day; cyanocobalamin (vitamin B-12) 500 mcg tablet, sublingual 500 mcg sublingual .COMPLEX 30 Days Qty: 20 11RF Rx Instructions: 500 mcg sublingual daily, saturday - saturday; Interventions: ED Discharge Assessment Last Done: 08/13/21 14:55 Discharge Date/Time: 08/13/21 14:56
== END 2021-08-13 14:56 | disposition home or self-care (01) ==
PROVIDERS: Emergency Provider Emergency Medicine; PCP Internal Medicine
DX: J32.9 Chronic sinusitis, unspecified (principal); R10.9 Unspecified abdominal pain; R51.9 Headache, unspecified; Z20.822 Contact with and (suspected) exposure to COVID-19; Z79.899 Other long term (current) drug therapy; Z98.84 Bariatric surgery status
CPT/HCPCS: 80053; 81003; 85025; 87635; 99282; 99283

== ENCOUNTER 2021-08-17 08:02 | Outpatient (REF) | payer MEDICARE, MEDICAID, SELFPAY ==
--- NOTE | ~2021-08-17 | XR_ITS ---
EXAMINATION: XR SINUSES CLINICAL INFORMATION: Questionable clinical sinusitis COMPARISON: None TECHNIQUE: 3 views of the sinuses were obtained. FINDINGS: Paranasal sinuses appear clear without air-fluid levels. No fractures are identified. No radiodense foreign bodies. XR/XR sinus min 3V IMPRESSION: Unremarkable examination.
== END 2021-08-17 08:03 | disposition home or self-care (01) ==
LOC: HO.XRAY 08:02
PROVIDERS: PCP Internal Medicine; Visit Provider Internal Medicine
DX: J34.89 Other specified disorders of nose and nasal sinuses (principal)
CPT/HCPCS: 70220; 95250; 99211

== ENCOUNTER → 2021-08-21 11:31 | Outpatient (BNVA) | payer MEDICARE, MEDICAID, SELFPAY | PROVIDERS: PCP Internal Medicine; Referring Provider Internal Medicine; Visit Provider Nurse Practitioner | DX: K31.84 Gastroparesis (principal); K21.9 Gastro-esophageal reflux disease without esophagitis; K59.04 Chronic idiopathic constipation; Z79.899 Other long term (current) drug therapy | CPT/HCPCS: 99212 ==

== ENCOUNTER 2021-08-24 08:30 | Emergency (ER) | payer MEDICARE, MEDICAID, SELFPAY ==
--- NOTE | ~2021-08-24 | XR_ITS ---
EXAMINATION: CR X-RAY KNEE AND TIBIA/FIBULAR RIGHT CLINICAL INFORMATION: Tender over the entire knee. COMPARISON: None TECHNIQUE: 4 views of the right knee and 2 views of the right tibia/fibula were obtained. FINDINGS: The tibia and fibula are intact. There is no acute fracture or dislocation. The right knee and ankle joints are unremarkable. There is no joint effusion. The soft tissues are unremarkable. XR/XR tibia fibula RT 2V IMPRESSION: Unremarkable right knee/tibia/fibula.
--- NOTE | ~2021-08-24 | XR_ITS ---
EXAMINATION: CR X-RAY KNEE AND TIBIA/FIBULAR RIGHT CLINICAL INFORMATION: Tender over the entire knee. COMPARISON: None TECHNIQUE: 4 views of the right knee and 2 views of the right tibia/fibula were obtained. FINDINGS: The tibia and fibula are intact. There is no acute fracture or dislocation. The right knee and ankle joints are unremarkable. There is no joint effusion. The soft tissues are unremarkable. XR/XR knee RT 4V IMPRESSION: Unremarkable right knee/tibia/fibula.
[2021-08-24 08:56] VITALS: BP 115/75; PULSE 60; RESP 20; TEMP 36.6; O2SAT 97; BMI 30.2
--- NOTE | 2021-08-24 09:03 | ED.LOWEXIN ---
HPI - Extremity Injury (Lower) General Chief Complaint: Extremity Injury, Lower Stated Complaint: swollen Right knee Time Seen by Provider: 08/24/21 09:03 Source: patient Mode of arrival: ambulatory Limitations: no limitations History of Present Illness HPI Narrative: 45-year-old female with a history of chronic pain, obesity, and multiple comorbidities presents for right knee pain that started 2 days ago. No trauma, No injury,no falls, patient has never had a problem with this knee, no surgeries on this knee. Patient states it is especially painful to go up hills and to go up stairs. Patient states her knee hurts in the front and the back of her knee. no numbness, no tingling, no swelling, no redness, no warmth, patient can ambulate Related Data Home Medications Medication Instructions Recorded Confirmed calcium citrate 315 mg-vitamin D3 1 tab PO DAILY 01/01/20 08/15/21 5 mcg (200 unit) tablet (Calcium Citrate + D) alprazolam 1 mg tablet 1 mg PO TID PRN Anxiety 02/10/20 08/15/21 clonidine HCl 0.1 mg tablet 0.1 mg PO DAILY anxiety 01/02/21 08/15/21 doxepin 10 mg capsule 10 mg PO BEDTIME 06/26/21 08/15/21 multivitamin-ferrous 1 tab PO DAILY 06/26/21 08/15/21 fumarate-folic acid 18 mg-400 mcg tablet (Certavite-Antioxidant) Previous Rx's Medication Instructions Recorded blood-glucose meter (FreeStyle #1 ea 02/25/20 Lite Meter) bisacodyl 5 mg tablet,delayed 5 - 10 mg PO BEDTIME PRN 03/21/21 release constipation 30 days #60 tabs ferrous sulfate 325 mg (65 mg 325 mg PO DAILY #60 tabs 05/26/21 iron) tablet acarbose 100 mg tablet See Rx Instructions PO QID #90 tabs 07/04/21 alcohol swabs (Alcohol Pads) 1 pad topical TID 30 days #100 ea 07/04/21 blood sugar diagnostic (FreeStyle #150 ea 07/04/21 Lite Strips) cyanocobalamin (vitamin B-12) 500 500 mcg sublingual .COMPLEX 30 07/04/21 mcg sublingual tablet days #20 tabs lancets 28 gauge (FreeStyle #200 ea 04/19/22 Lancets) rosuvastatin 5 mg tablet (Crestor) 5 mg PO DAILY #30 tabs 07/04/21 fluticasone propionate 50 1 spray intranasal DAILY #48 mL 07/17/21 mcg/actuation nasal spray,suspension mometasone 0.1 % topical cream 1 appl topical DAILY PRN rash #45 07/17/21 grams oxybutynin chloride 10 mg 10 mg PO DAILY OAB 30 days #90 tabs 07/17/21 tablet,extended release 24 hr acetaminophen 500 mg tablet 1,000 mg PO QID PRN pain #30 tabs 08/13/21 amoxicillin 500 mg tablet 500 mg PO TID 7 days #21 tabs 08/13/21 oxycodone 5 mg tablet 5 mg PO Q6H PRN pain #10 tabs 08/13/21 cetirizine 10 mg tablet 10 mg PO DAILY PRN Allergy 08/15/21 Symptoms 90 days #90 tabs ibuprofen 800 mg tablet 800 mg PO TID PRN fever or pain 30 08/15/21 days #90 tabs levothyroxine 25 mcg tablet 25 mcg PO DAILY 90 days #90 tabs 08/15/21 topiramate 100 mg tablet 100 mg PO BEDTIME 90 days #90 tabs 08/15/21 tramadol 50 mg tablet See Rx Instructions .Route 08/15/21 .COMPLEX pain 30 days #30 tabs dicyclomine 20 mg tablet 20 mg PO QID PRN Abdominal Pain 08/21/21 #120 tabs linaclotide 290 mcg capsule 290 mcg PO DAILY 30 days #30 caps 08/21/21 (Linzess) metoclopramide HCl 10 mg tablet 10 mg PO QIDACHS Nausea #120 tabs 08/21/21 (Reglan) omeprazole 40 mg capsule,delayed 40 mg PO DAILY GERD #30 caps 08/21/21 release simethicone 180 mg capsule 180 mg PO QID 30 days #120 caps 08/21/21 naproxen 500 mg tablet 500 mg PO BID 10 days #20 tabs 08/24/21 Allergies Allergy/AdvReac Type Severity Reaction Status Date / Time lisinopril [LISINOPRIL] Allergy Severe ANAPYHLAXIS, Verified 08/21/21 11:52 swelling metformin [METFORMIN] Allergy Severe ANAPHYLAXIS, Verified 08/21/21 11:52 diarrhea sumatriptan [From IMITREX] Allergy Severe ANAPHYLAXIS, Verified 08/21/21 11:52 sedation Review of Systems Constitutional: Constitutional: Denies body ache(s), Denies chills, Denies fatigue, Denies fever(s), Denies malaise and Denies weakness Eyes: Eyes: Denies diplopia Cardiovascular: Cardiovascular: Denies chest pain, Denies syncope, Denies leg edema, Denies lightheadedness, Denies Loss of Consciousness, Denies palpitations and Denies dyspnea Respiratory: Respiratory: Denies chest congestion, Denies cough and Denies dyspnea Musculoskeletal: Musculoskeletal: Reports arthralgias, Denies numbness and Denies stiffness Neurologic: Denies confusion, Denies syncope, Denies numbness and Denies weakness Psychiatric: Psychiatric: Denies anxiety, Denies confusion and Denies depression Endocrine: Endocrine: Denies fatigue and Denies palpitations PMFSH Past Medical History 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 Upper abdominal pain Vitamin D deficiency Surgical History H/O gastric bypass History of esophagogastroduodenoscopy (EGD) History of tubal ligation History of umbilical hernia Hx of bilateral breast reduction surgery Hx of section Hx of cholecystectomy Hx of lithotripsy Family History Family History Father Liver cancer Hypertension Diabetes mellitus CVD (cardiovascular disease) Liver failure Mother Hypercholesterolemia Breast cancer Asthma Depression Maternal Grandmother Diabetes mellitus Hypertension Paternal Grandmother Diabetes mellitus Hypertension Social History Social History Household Members: Significant Other Housing: House Alcohol intake: never Patient Tobacco Use Status: Never used Tobacco e-Cigarette/Vaping Use: Never Used Second Hand Smoke Exposure: Yes Advance Directives: No Advance Directives Information Provided: No service: No Current occupational status: disabled Cognitive needs: No Hearing needs: No Vision needs: Yes Physical Exam Vital Signs: Vital Signs: Last Vital Signs Temp 98 F 08/24/21 08:56 Pulse 60 08/24/21 08:56 Resp 20 08/24/21 08:56 BP 115/75 08/24/21 08:56 Pulse Ox 97 08/24/21 08:56 O2 Del Method 08/24/21 08:56 BMI result Body Mass Index 30.2 Const: General: No confusion Nutritional Appearance: well nourished Orientation/consciousness: No confusion Limitations: no limitations Eyes: Conjunctivae: conjunctivae normal Pupils: Equal, round and reactive pupils present EOM: EOMs intact bilaterally Neck: Neck: Yes full ROM, Yes no lymphadenopathy and Yes supple Resp: Effort & Inspection: normal respiratory effort and able to speak in complete sentences Auscultation: clear to auscultation bilaterally, no crackles, no rales, no rhonchi and no wheezes Cardio: Rate: regular rate Rhythm: regular rhythm Heart sounds: S1 normal heart sound present and S2 normal heart sound present Skin: General skin exam: no rashes or lesions noted Neuro: General: No confusion Cranial nerves: Yes Equal, round and reactive pupils present Extrem: Right lower extremity: normal capillary refill and knee Details: tenderness Location: of the patella, of the tibial tuberosity, of the popliteal fossa, of the medial joint line, of the lateral joint line and of the lateral joint line, abnormal ROM Details: pain with active ROM during and pain with passive ROM during Details: in flexion; able to extend lower leg actively and knee ligament exam normal; no swelling, no ecchymosis, no crepitus, no deformity and no unusual warmth; no edema Psych: Appearance: grossly normal Affect: normal affect Attitude: cooperative Thought process: Normal thought process present Course Course Course Narrative: 45-year-old female presents with atraumatic right knee pain that started 2 days ago and especially worse with climbing stairs and going up hills. On exam, patient has intact right lower extremity pulses, sensation, motor strength, deep tendon reflexes. Patient has pain with flexion of her right knee. Patient is tender to palpate on both her patella, popliteal fossa, lateral and medial joint lines. Patient is also tender over head of the fibula. Knee is not red, not swollen, not warm, no rash noted. Gave pain medicine, will get x-ray right knee an x-ray right tib-fib Reevaluation(s) Reevaluation #1: FINDINGS: The tibia and fibula are intact. There is no acute fracture or dislocation. The right knee and ankle joints are unremarkable. There is no joint effusion. The soft tissues are unremarkable.? XR/XR knee RT 4V IMPRESSION: Unremarkable right knee/tibia/fibula.? negative knee x-ray, will give naproxen, knee immobilizer, crutches, follow up with Orthopedics Discharge Plan Discharge Clinical Impression: Acute knee pain Patient Disposition: Home, Self-Care Instructions: Crutch Instructions (ED), R.I.C.E. Treatment (ED), Knee Immobilizer (ED) Additional Instructions: use your knee immobilizer and crutches. It is safe to bear weight on your knee as there is nothing broken, but if you to use the crutches and do not bear weight, at rest your leg. I want you to rest, ice, and elevate your leg. Use the knee immobilizer during the day, take off to sleep. Call Orthopedics at the following number if you have not heard from them by tomorrow [phone] fill the prescription for naproxen and takes as prescribed. Do not take any ibuprofen containing medicine when you are taking naproxen Prescriptions: New naproxen 500 mg tablet 500 mg PO BID 10 Days Qty: 20 0RF No Action (DME) blood-glucose meter [FreeStyle Lite Meter] Kit See Rx Instructions .ROUTE .MEDSUPPLY Qty: 1 0RF Rx Instructions: As directed once a day oxybutynin chloride 10 mg tablet extended release 24 hr 10 mg PO DAILY 30 Days Qty: 90 3RF fluticasone propionate 50 mcg/actuation spray,suspension 1 spray intranasal DAILY Qty: 48 1RF mometasone 0.1 % cream 1 appl topical DAILY PRN (Reason: rash) Qty: 45 1RF ferrous sulfate 325 mg (65 mg iron) Tablet 325 mg PO DAILY Qty: 60 3RF oxycodone 5 mg tablet 5 mg PO Q6H PRN (Reason: pain) Qty: 10 0RF acetaminophen 500 mg tablet 1,000 mg PO QID PRN (Reason: pain) Qty: 30 0RF amoxicillin 500 mg tablet 500 mg PO TID 7 Days Qty: 21 0RF alprazolam 1 mg tablet 1 mg PO TID PRN (Reason: Anxiety) ibuprofen 800 mg tablet 800 mg PO TID PRN (Reason: fever or pain) 30 Days Qty: 90 3RF Rx Instructions: TAKE WITH FOOD topiramate 100 mg tablet 100 mg PO BEDTIME 90 Days Qty: 90 1RF tramadol 50 mg tablet See Rx Instructions .ROUTE .COMPLEX 30 Days Qty: 30 0RF Rx Instructions: 1 tablet 1 to 2 times a day orally ONLY NEEDED for SEVERE PAIN; cetirizine 10 mg tablet 10 mg PO DAILY PRN (Reason: Allergy Symptoms) 90 Days Qty: 90 1RF levothyroxine 25 mcg tablet 25 mcg PO DAILY 90 Days Qty: 90 1RF calcium citrate-vitamin D3 [Calcium Citrate + D] 315 mg-5 mcg (200 unit) tablet 1 tab PO DAILY clonidine HCl 0.1 mg tablet 0.1 mg PO DAILY doxepin 10 mg capsule 10 mg PO BEDTIME Certavite-Antioxidant 18-400 mg-mcg tablet 1 tab PO DAILY bisacodyl 5 mg tablet,delayed release (DR/EC) 5 - 10 mg PO BEDTIME PRN (Reason: constipation) 30 Days Qty: 60 6RF rosuvastatin [Crestor] 5 mg tablet 5 mg PO DAILY Qty: 30 12RF (DME) lancets [FreeStyle Lancets] 28 gauge misc See Rx Instructions .ROUTE .MEDSUPPLY Qty: 200 12RF Rx Instructions: As directed 4x/day (DME) FreeStyle Lite Strips Strip See Rx Instructions .ROUTE .MEDSUPPLY Qty: 150 12RF Rx Instructions: As 4 x/day alcohol swabs [Alcohol Pads] Pads, Medicated 1 pad topical TID 30 Days Qty: 100 12RF acarbose 100 mg tablet See Rx Instructions PO QID Qty: 90 11RF Rx Instructions: 1/2 tab breakfast, 1 tab lunch and dinner, 1/2 tab for hs snack PO 4 times a day; cyanocobalamin (vitamin B-12) 500 mcg tablet, sublingual 500 mcg sublingual .COMPLEX 30 Days Qty: 20 11RF Rx Instructions: 500 mcg sublingual daily, saturday - saturday; dicyclomine 20 mg tablet 20 mg PO QID PRN (Reason: Abdominal Pain) Qty: 120 6RF Linzess 290 mcg capsule 290 mcg PO DAILY 30 Days Qty: 30 6RF metoclopramide HCl [Reglan] 10 mg tablet 10 mg PO QIDACHS Qty: 120 6RF simethicone 180 mg capsule 180 mg PO QID 30 Days Qty: 120 6RF Rx Instructions: after meals omeprazole 40 mg capsule,delayed release(DR/EC) 40 mg PO DAILY Qty: 30 6RF Referrals: Vaibhav Garcia MD [Physician] -
[2021-08-24] MEDS: oxyCODONE HCl Immed Release 5 MG TABLET PO (09:38)
== END 2021-08-24 10:35 | disposition home or self-care (01) ==
PROVIDERS: Emergency Provider Emergency Medicine; PCP Internal Medicine
DX: M25.561 Pain in right knee (principal)
CPT/HCPCS: 73564; 73590; 99283

== ENCOUNTER → 2021-08-31 11:27 | Outpatient (BNVA) | payer MEDICARE, MEDICAID, SELFPAY | PROVIDERS: PCP Internal Medicine; Visit Provider Nurse Practitioner Gerontology | DX: E11.649 Type 2 diabetes mellitus with hypoglycemia without coma (principal); K91.2 Postsurgical malabsorption, not elsewhere classified; E78.5 Hyperlipidemia, unspecified; E53.8 Deficiency of other specified B group vitamins; Z79.899 Other long term (current) drug therapy | CPT/HCPCS: 82947; 99212 ==

== ENCOUNTER 2021-09-01 07:18 | Outpatient (REF) | payer MEDICARE, MEDICAID, SELFPAY ==
--- NOTE | ~2021-09-01 | XR_ITS ---
EXAMINATION: XR KNEE AP STANDING XR KNEE, RIGHT CLINICAL INFORMATION: Pain in knee. COMPARISON: None TECHNIQUE: AP bilateral standing view of the knees was obtained. [place] one view left knee. FINDINGS: AP BILATERAL KNEE STANDING: There is moderate reduction in medial compartment joint space both knees slightly greater on the left with moderate periarticular spurring. The lateral compartment joint space is maintained normally bilateral. No fracture, loose bodies or bony erosive changes seen. [place] LEFT KNEE: There is maintained patellofemoral compartment joint space. No bony erosive changes. No loose bodies. The soft tissues are normal. XR/XR knee standing BI IMPRESSION: Moderate degenerative osteoarthritic changes medial compartment both knees slightly worse on the left with periarticular spurring. Unremarkable [place] view left knee.
--- NOTE | ~2021-09-01 | XR_ITS ---
EXAMINATION: XR KNEE AP STANDING XR KNEE, RIGHT CLINICAL INFORMATION: Pain in knee. COMPARISON: None TECHNIQUE: AP bilateral standing view of the knees was obtained. [place] one view left knee. FINDINGS: AP BILATERAL KNEE STANDING: There is moderate reduction in medial compartment joint space both knees slightly greater on the left with moderate periarticular spurring. The lateral compartment joint space is maintained normally bilateral. No fracture, loose bodies or bony erosive changes seen. [place] LEFT KNEE: There is maintained patellofemoral compartment joint space. No bony erosive changes. No loose bodies. The soft tissues are normal. XR/XR knee RT 1V IMPRESSION: Moderate degenerative osteoarthritic changes medial compartment both knees slightly worse on the left with periarticular spurring. Unremarkable [place] view left knee.
== END 2021-09-01 07:19 | disposition home or self-care (01) ==
LOC: HO.HOSX 07:18
PROVIDERS: Visit Provider Physician Assistant
DX: M23.91 Unspecified internal derangement of right knee (principal)
CPT/HCPCS: 73560; 73565; 99202

== ENCOUNTER 2021-09-27 09:22 | Emergency (ER) | payer MEDICARE, MEDICAID, SELFPAY ==
[2021-09-27 09:28] VITALS: BP 123/90; PULSE 100; RESP 16; TEMP 37.4; O2SAT 97; BMI 30.4
--- NOTE | 2021-09-27 10:00 | ED.GENADULT ---
HPI - General Adult General Chief complaint: Ear Problems Stated complaint: headache ear pain Time Seen by Provider: 09/27/21 10:00 Source: patient Mode of arrival: ambulatory Limitations: no limitations History of Present Illness HPI narrative: Patient is a 45 year old female presenting to the emergency department today with a headache and sinus congestion. Patient states that her head feels full and her sinuses are congested. Patient denies any dizziness, lightheadedness, abdominal pain, nausea, vomiting, fever, chills, blurry vision, double vision, loss of vision, chest pain, difficulty breathing, shortness of breath, back pain, night sweats, pain with urination, increased urinary frequency, increased urinary urgency, blood in her urine or stool, syncope or a near syncopal episode, recent trauma or falls, bowel incontinence, bladder incontinence, bowel retention, bladder retention, or any other complaints at this time. Onset (ago): day(s) Location: head Radiation: non-radiation Severity: mild Severity scale (1-10): 2 Quality: dull Pain Consistency: constant Relieving factors: none Exacerbating factors: none Associated symptoms: headaches Treatments prior to arrival: none Related Data Home Medications Medication Instructions Recorded Confirmed calcium citrate 315 mg-vitamin D3 1 tab PO DAILY 01/01/20 08/31/21 5 mcg (200 unit) tablet (Calcium Citrate + D) alprazolam 1 mg tablet 1 mg PO TID PRN Anxiety 02/10/20 08/15/21 clonidine HCl 0.1 mg tablet 0.1 mg PO DAILY anxiety 01/02/21 08/15/21 doxepin 10 mg capsule 10 mg PO BEDTIME 06/26/21 08/15/21 Previous Rx's Medication Instructions Recorded blood-glucose meter (FreeStyle #1 ea 02/25/20 Lite Meter) bisacodyl 5 mg tablet,delayed 5 - 10 mg PO BEDTIME PRN 03/21/21 release constipation 30 days #60 tabs acarbose 100 mg tablet See Rx Instructions PO QID #90 tabs 07/04/21 alcohol swabs (Alcohol Pads) 1 pad topical TID 30 days #100 ea 07/04/21 blood sugar diagnostic (FreeStyle #150 ea 07/04/21 Lite Strips) lancets 28 gauge (FreeStyle #200 ea 07/04/21 Lancets) rosuvastatin 5 mg tablet (Crestor) 5 mg PO DAILY #30 tabs 07/04/21 fluticasone propionate 50 1 spray intranasal DAILY #48 mL 07/17/21 mcg/actuation nasal spray,suspension oxybutynin chloride 10 mg 10 mg PO DAILY OAB 30 days #90 tabs 07/17/21 tablet,extended release 24 hr acetaminophen 500 mg tablet 1,000 mg PO QID PRN pain #30 tabs 08/13/21 amoxicillin 500 mg tablet 500 mg PO TID 7 days #21 tabs 08/13/21 oxycodone 5 mg tablet 5 mg PO Q6H PRN pain #10 tabs 08/13/21 cetirizine 10 mg tablet 10 mg PO DAILY PRN Allergy 08/15/21 Symptoms 90 days #90 tabs ibuprofen 800 mg tablet 800 mg PO TID PRN fever or pain 30 08/15/21 days #90 tabs levothyroxine 25 mcg tablet 25 mcg PO DAILY 90 days #90 tabs 08/15/21 topiramate 100 mg tablet 100 mg PO BEDTIME 90 days #90 tabs 08/15/21 dicyclomine 20 mg tablet 20 mg PO QID PRN Abdominal Pain 08/21/21 #120 tabs linaclotide 290 mcg capsule 290 mcg PO DAILY 30 days #30 caps 08/21/21 (Linzess) metoclopramide HCl 10 mg tablet 10 mg PO QIDACHS Nausea #120 tabs 08/21/21 (Reglan) omeprazole 40 mg capsule,delayed 40 mg PO DAILY GERD #30 caps 08/21/21 release simethicone 180 mg capsule 180 mg PO QID 30 days #120 caps 08/21/21 naproxen 500 mg tablet 500 mg PO BID 10 days #20 tabs 08/24/21 cyanocobalamin (vitamin B-12) 500 500 mcg sublingual .COMPLEX 30 08/31/21 mcg sublingual tablet days #20 tabs meloxicam 15 mg tablet 15 mg PO DAILY 30 days #30 tabs 09/01/21 meloxicam 15 mg tablet 15 mg PO DAILY 30 days #30 tabs 09/04/21 tramadol 50 mg tablet See Rx Instructions .Route 09/11/21 .COMPLEX pain 30 days #30 tabs mometasone 0.1 % topical cream 1 appl topical DAILY PRN rash #45 09/14/21 grams multivitamin-ferrous 1 tab PO DAILY 90 days #90 tabs 09/14/21 fumarate-folic acid 18 mg-400 mcg tablet (Certavite-Antioxidant) ferrous sulfate 325 mg (65 mg 325 mg PO DAILY #60 tabs 09/19/21 iron) tablet doxycycline hyclate 100 mg capsule 100 mg PO BID 7 days #14 caps 09/27/21 Allergies Allergy/AdvReac Type Severity Reaction Status Date / Time lisinopril [LISINOPRIL] Allergy Severe ANAPYHLAXIS, Verified 09/01/21 10:59 swelling metformin [METFORMIN] Allergy Severe ANAPHYLAXIS, Verified 09/01/21 10:59 diarrhea sumatriptan [From IMITREX] Allergy Severe ANAPHYLAXIS, Verified 09/01/21 10:59 sedation Review of Systems Constitutional: Constitutional: Reports no additional constitutional complaints, Denies chills, Denies fever(s), Reports headache(s) and Denies night sweats Eyes: Eyes: Reports no additional eye complaints, Denies blurry vision, Denies change in vision, Denies diplopia, Denies eye discharge, Denies loss of vision and Denies eye pain ENT: Denies dizziness, Reports headache(s) and Reports sinus pressure Cardiovascular: Cardiovascular: Reports no additional cardiovascular complaints, Denies chest pain, Denies lightheadedness, Denies Loss of Consciousness and Denies dyspnea Respiratory: Respiratory: Reports no additional respiratory complaints and Denies dyspnea Gastrointestinal: Gastrointestinal: Reports no additional gastrointestinal complaints, Denies abdominal pain, Denies melena, Denies hematochezia, Denies change in bowel habits and Denies change in stool character Genitourinary: Genitourinary: Denies hematuria, Denies urinary frequency, Denies dysuria, Denies urinary incontinence, Denies urinary hesitancy and Denies urinary urgency Musculoskeletal: Musculoskeletal: Reports no additional musculoskeletal complaints, Denies numbness and Denies tingling Neurologic: Denies dizziness, Reports headache(s), Denies loss of vision, Denies numbness and Denies tingling Psychiatric: Psychiatric: Reports no additional psychiatric complaints Endocrine: Endocrine: Reports no additional endocrine complaints Hematologic/Lymphatic: Hematologic/Lymphatic: Reports no additional hematologic/lymphatic complaints Allergic/Immunologic: Allergic/Immunologic: Reports no additional allergic/immunologic complaints PMFSH Past Medical History Attestation statement: The following information was validated with the patient. Source: old records reviewed 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 Upper abdominal pain Vitamin D deficiency Surgical History H/O gastric bypass History of esophagogastroduodenoscopy (EGD) History of tubal ligation History of umbilical hernia Hx of bilateral breast reduction surgery Hx of section Hx of cholecystectomy Hx of lithotripsy Family History Family History Father Liver cancer Hypertension Diabetes mellitus CVD (cardiovascular disease) Liver failure Mother Hypercholesterolemia Breast cancer Asthma Depression Maternal Grandmother Diabetes mellitus Hypertension Paternal Grandmother Diabetes mellitus Hypertension Social History Social History Household Members: Significant Other Housing: House Alcohol intake: never Patient Tobacco Use Status: Never used Tobacco e-Cigarette/Vaping Use: Never Used Second Hand Smoke Exposure: Yes Advance Directives: Yes Advance Directives Information Provided: Yes Advance Directives on File: No service: No Current occupational status: disabled Cognitive needs: No Hearing needs: No Vision needs: Yes Physical Exam ED Vital Signs: Vital Signs - 24 hr 09/27/21 09:28 Temperature 99.3 F Pulse Rate 100 Respiratory Rate 16 Blood Pressure 123/90 H Pulse Oximetry 97 Oxygen Delivery Method Room Air BMI result Body Mass Index 30.4 Const General: cooperative, no acute distress, alert and awake Nutritional Appearance: well nourished Orientation/consciousness: oriented to person, oriented to place, oriented to time and patient oriented x3 Limitations: no limitations HENMT Head: Yes normal to inspection and Yes atraumatic Ears: hearing grossly normal bilaterally and external ears normal General nose exam: Normal external nose present, no nasal discharge noted and no epistaxis Face and sinus: Yes normal facial exam, No abrasion and No laceration Mouth: Normal oral and palatal mucosa present, no drooling and no muffled voice Eyes General: appearance normal, both eyes and all related structures Periorbital: periorbital findings normal Eyelids: Yes eyelids normal Conjunctivae: conjunctivae normal Pupils: Equal, round and reactive pupils present EOM: EOMs intact bilaterally Neck Neck: Yes normal visual inspection, Yes full ROM and Yes no lymphadenopathy Chest Chest palpation & inspection: normal inspection of the chest Resp Effort & Inspection: normal respiratory effort and able to speak in complete sentences Auscultation: clear to auscultation bilaterally Cardio Rate: regular rate Rhythm: regular rhythm GI Inspection: Yes normal to inspection Neuro General: oriented to person, oriented to place, oriented to time, patient oriented x3 and moves all extremities Cranial nerves: Yes Equal, round and reactive pupils present Cognition (Neuro): normal cognition Motor exam (neuro): 5/5 motor strength present throughout Sensory Exam: Normal double simultaneous stimulation for sensation Coordination: [id number] test normal Extrem General: Yes normal to inspection, Yes full ROM and Yes capillary refill normal Psych Appearance: grossly normal Mental Status: mental status grossly normal Affect: normal affect Attitude: cooperative Thought process: Normal thought process present Thought content: Normal thought content present Insight: Good insight present (Psych) Medical Decision Making [facility] Narrative Medical decision making narrative: Patient is a 45 year old female presenting to the emergency department today with a headache and nasal congestion. Patient's physical exam was unremarkable. I explained my physical exam findings to the patient. I answered all questions asked by the patient. I stressed the importance of the patient taking her medication as prescribed. I stressed the importance of the patient following up with her primary care provider. I stressed the importance of the patient returning to the emergency department immediately if her symptoms were to worsen or if she were to develop any dizziness, shortness of breath, difficulty breathing, chest pain, blurry vision, loss of vision, nausea, vomiting, abdominal pain, fever, chills, back pain, or any other complaints. Patient verbalized agreement and understanding with this treatment plan and discharge. Differential Diagnosis Differential Diagnosis: sinusitis Medical Records Medical records reviewed: Yes I reviewed the patient's medical records. Discharge Plan Discharge Clinical Impression: Sinusitis Patient Disposition: Home, Self-Care Instructions: Sinusitis (ED) Additional Instructions: Follow up with your primary care provider. Return to the emergency department immediately if your symptoms worsen or if you develop any dizziness, shortness of breath, difficulty breathing, chest pain, blurry vision, loss of vision, nausea, vomiting, abdominal pain, fever, chills, back pain, or any other complaints. Prescriptions: New doxycycline hyclate 100 mg capsule 100 mg PO BID 7 Days Qty: 14 0RF No Action (DME) blood-glucose meter [FreeStyle Lite Meter] Kit See Rx Instructions .ROUTE .MEDSUPPLY Qty: 1 0RF Rx Instructions: As directed once a day oxybutynin chloride 10 mg tablet extended release 24 hr 10 mg PO DAILY 30 Days Qty: 90 3RF fluticasone propionate 50 mcg/actuation spray,suspension 1 spray intranasal DAILY Qty: 48 1RF tramadol 50 mg tablet See Rx Instructions .ROUTE .COMPLEX 30 Days Qty: 30 0RF Rx Instructions: 1 tablet 1 to 2 times a day orally ONLY NEEDED for SEVERE PAIN; Certavite-Antioxidant 18-400 mg-mcg tablet 1 tab PO DAILY 90 Days Qty: 90 3RF mometasone 0.1 % cream 1 appl topical DAILY PRN (Reason: rash) Qty: 45 1RF ferrous sulfate 325 mg (65 mg iron) Tablet 325 mg PO DAILY Qty: 60 2RF oxycodone 5 mg tablet 5 mg PO Q6H PRN (Reason: pain) Qty: 10 0RF acetaminophen 500 mg tablet 1,000 mg PO QID PRN (Reason: pain) Qty: 30 0RF amoxicillin 500 mg tablet 500 mg PO TID 7 Days Qty: 21 0RF naproxen 500 mg tablet 500 mg PO BID 10 Days Qty: 20 0RF alprazolam 1 mg tablet 1 mg PO TID PRN (Reason: Anxiety) ibuprofen 800 mg tablet 800 mg PO TID PRN (Reason: fever or pain) 30 Days Qty: 90 3RF Rx Instructions: TAKE WITH FOOD topiramate 100 mg tablet 100 mg PO BEDTIME 90 Days Qty: 90 1RF cetirizine 10 mg tablet 10 mg PO DAILY PRN (Reason: Allergy Symptoms) 90 Days Qty: 90 1RF levothyroxine 25 mcg tablet 25 mcg PO DAILY 90 Days Qty: 90 1RF calcium citrate-vitamin D3 [Calcium Citrate + D] 315 mg-5 mcg (200 unit) tablet 1 tab PO DAILY clonidine HCl 0.1 mg tablet 0.1 mg PO DAILY doxepin 10 mg capsule 10 mg PO BEDTIME cyanocobalamin (vitamin B-12) 500 mcg tablet, sublingual 500 mcg sublingual .COMPLEX 30 Days Qty: 20 11RF Rx Instructions: 500 mcg sublingual daily, saturday - saturday; bisacodyl 5 mg tablet,delayed release (DR/EC) 5 - 10 mg PO BEDTIME PRN (Reason: constipation) 30 Days Qty: 60 6RF rosuvastatin [Crestor] 5 mg tablet 5 mg PO DAILY Qty: 30 12RF (DME) lancets [FreeStyle Lancets] 28 gauge misc See Rx Instructions .ROUTE .MEDSUPPLY Qty: 200 12RF Rx Instructions: As directed 4x/day (DME) FreeStyle Lite Strips Strip See Rx Instructions .ROUTE .MEDSUPPLY Qty: 150 12RF Rx Instructions: As 4 x/day alcohol swabs [Alcohol Pads] Pads, Medicated 1 pad topical TID 30 Days Qty: 100 12RF acarbose 100 mg tablet See Rx Instructions PO QID Qty: 90 11RF Rx Instructions: 1/2 tab breakfast, 1 tab lunch and dinner, 1/2 tab for hs snack PO 4 times a day; dicyclomine 20 mg tablet 20 mg PO QID PRN (Reason: Abdominal Pain) Qty: 120 6RF Linzess 290 mcg capsule 290 mcg PO DAILY 30 Days Qty: 30 6RF metoclopramide HCl [Reglan] 10 mg tablet 10 mg PO QIDACHS Qty: 120 6RF simethicone 180 mg capsule 180 mg PO QID 30 Days Qty: 120 6RF Rx Instructions: after meals omeprazole 40 mg capsule,delayed release(DR/EC) 40 mg PO DAILY Qty: 30 6RF meloxicam 15 mg tablet 15 mg PO DAILY 30 Days Qty: 30 0RF meloxicam 15 mg tablet 15 mg PO DAILY 30 Days Qty: 30 0RF Referrals: Juve Crawford MD [Primary Care Provider] - Interventions: ED Discharge Assessment Last Done: 09/27/21 10:27 Discharge Date/Time: 09/27/21 10:28 Print Language: Kosovan
== END 2021-09-27 10:28 | disposition home or self-care (01) ==
PROVIDERS: Emergency Provider Emergency Medicine; PCP Internal Medicine
DX: J32.9 Chronic sinusitis, unspecified (principal); R51.9 Headache, unspecified; F41.9 Anxiety disorder, unspecified; Z79.899 Other long term (current) drug therapy; Z79.02 Long term (current) use of antithrombotics/antiplatelets; E11.9 Type 2 diabetes mellitus without complications; E78.5 Hyperlipidemia, unspecified; E66.9 Obesity, unspecified; Z68.30 Body mass index [BMI] 30.0-30.9, adult
CPT/HCPCS: 99282; 99283

== ENCOUNTER → 2021-10-11 13:52 | Outpatient (BNVA) | payer MEDICARE, MEDICAID, SELFPAY | PROVIDERS: PCP Internal Medicine; Visit Provider Anesthesiology | DX: M47.27 Other spondylosis with radiculopathy, lumbosacral region (principal); M47.816 Spondylosis without myelopathy or radiculopathy, lumbar region | CPT/HCPCS: 99212 ==

== ENCOUNTER → 2021-10-13 08:42 | Outpatient (BNVA) | payer MEDICARE, MEDICAID, SELFPAY | PROVIDERS: PCP Internal Medicine | DX: R32 Unspecified urinary incontinence (principal); Z79.899 Other long term (current) drug therapy | CPT/HCPCS: Q3014 ==

== ENCOUNTER 2021-11-27 07:54 | Outpatient (REF) | payer MEDICARE, MEDICAID, SELFPAY ==
[2021-11-27 08:03] LABS: MANUAL DIFF FLAG NO
[2021-11-27 08:21] LABS: Basophils Absolute Auto 0.1 X10*3/uL (0.0-0.2); Basophils Percent Auto 0.7 % (0-2); Eosinophils Absolute Auto 0.2 X10*3/uL (0.0-0.4); Eosinophils Percent Auto 2.6 % (0-4); Hematocrit 38.1 % (37.0-47.0); Hemoglobin 11.9 g/dl (12.0-16.0); Imm Gran Abs Auto 0.03 X10*3/uL (0.00-0.03); Imm Gran Pct Auto 0.4 % (0.0-0.4); Lymphocytes Percent Auto 23.3 % (20-40); Mean Corpuscular HGB Conc 31.2 g/dl (31.0-35.0); Mean Corpuscular Hemoglobin 27.1 pg (27.0-33.0); Mean Corpuscular Volume 86.8 fL (80.0-98.0); Mean Platelet Volume 10.4 fL (9.4-12.3); Monocytes Absolute Auto 0.9 X10*3/uL (0.1-1.2); Monocytes Percent Auto 10.2 % (2-11); Neutrophils Absolute Auto 5.3 x10*3/uL (2.0-8.3); Neutrophils Percent Auto 62.8 % (45-73); Platelet Count 297 X10*3/uL (160-400); Red Blood Count 4.39 X10*6/uL (4.20-5.50); Red Cell Distribution Width 13.6 % (11.0-16.0); White Blood Count 8.5 X10*3/uL (4.8-10.8)
[2021-11-27 08:36] LABS: Estimated Average Glucose 94 mg/dL; Hemoglobin A1c % 4.9 %
[2021-11-27 08:37] LABS: Alanine Aminotransferase 15 U/L (0-31); Albumin Level 4.4 g/dL (3.5-5.0); Alkaline Phosphatase 55 U/L (39-117); Anion Gap 12 (12-20); Aspartate Amino Transferase 21 U/L (5-31); Bilirubin Total 0.5 mg/dL (0.0-1.0); Blood Urea Nitrogen 18 mg/dL (9-16); Calcium 9.3 mg/dL (8.4-10.2); Carbon Dioxide 23 mmol/L (22-29); Chloride 109 mmol/L (96-108); Cholesterol 133 mg/dL; Estimated Glomerular Filt Rate > 60; Glucose Fasting 85 mg/dL (60-99); HDL Cholesterol 57 mg/dL; LDL Cholesterol Calculated 59 mg/dl; Potassium 4.9 mmol/L (3.3-5.1); Sodium 139 mmol/L (135-145); Total Protein 7.7 g/dL (6.5-8.0); Triglycerides 88 mg/dL
[2021-11-27 09:04] LABS: Thyroid Stimulating Hormone 3.43 uIU/mL (0.32-4.0)
[2021-11-27 09:40] LABS: Appearance Urine Clear; Color Urine Yellow; Glucose Urine UA Negative (Negative); Leukocyte Esterase Urine Negative (Negative); Nitrite Urine Negative (Negative); PH 7.5 (5.0-9.0); Specific Gravity - Urine 1.025 (1.005-1.025); Urine Blood Negative (Negative); Urine Ketones Trace mg/dL (Negative); Urine Protein Negative (Neg-Trace)
[2021-11-27 09:40] LABS: Vitamin D 25-OH Total 38.2 ng/mL (>30)
== END 2021-11-27 07:55 | disposition home or self-care (01) ==
LOC: HO.LAB 07:54
PROVIDERS: PCP Internal Medicine; Visit Provider Internal Medicine
DX: E55.9 Vitamin D deficiency, unspecified (principal); E78.00 Pure hypercholesterolemia, unspecified; E11.9 Type 2 diabetes mellitus without complications; E03.9 Hypothyroidism, unspecified; I10 Essential (primary) hypertension
CPT/HCPCS: 36415; 80053; 80061; 81003; 82306; 83036; 84439; 84443; 85025

== ENCOUNTER → 2021-12-01 09:55 | Outpatient (BNVA) | payer MEDICARE, MEDICAID, SELFPAY | PROVIDERS: PCP Internal Medicine; Visit Provider Internal Medicine Endocrinology, Diabetes & Metabolism | DX: K91.2 Postsurgical malabsorption, not elsewhere classified (principal); E11.649 Type 2 diabetes mellitus with hypoglycemia without coma; Z98.84 Bariatric surgery status | CPT/HCPCS: 82947; 99212 ==

== ENCOUNTER 2021-12-13 10:29 | Outpatient (REF) | payer MEDICARE, MEDICAID, SELFPAY ==
--- NOTE | ~2021-12-13 | US_ITS ---
EXAMINATION: US RETROPERITONEAL LIMITED (RENAL ONLY) CLINICAL INFORMATION: Calculus of kidney. COMPARISON: CT abdomen and pelvis without contrast 08/26/2020. Ultrasound retroperitoneal limited (renal only) 01/26/2019 and 11/06/2017. X-ray abdomen KUB 06/30/2018 and 01/01/2018. TECHNIQUE: Real-time imaging of the kidneys. FINDINGS: RIGHT KIDNEY: 11.2 x 5.7 x 6.0 cm (SAG x AP x TRV). The kidney is normal in size, contour, and echogenicity. Renal cortical thickness is normal. No calculi or focal parenchymal lesions. No hydronephrosis. LEFT KIDNEY: 11.0 x 5.9 x 4.9 cm (SAG x AP x TRV). The kidney is normal in size, contour, and echogenicity. Renal cortical thickness is normal. No calculi or focal parenchymal lesions. No hydronephrosis. US/US renal BI IMPRESSION: Unremarkable appearance of the kidneys. No renal calculi..
== END 2021-12-13 10:30 | disposition home or self-care (01) ==
LOC: HO.US 10:29
DX: N20.0 Calculus of kidney (principal)
CPT/HCPCS: 76775

== ENCOUNTER → 2022-01-08 09:42 | Outpatient (BNVA) | payer MEDICARE, MEDICAID, SELFPAY | PROVIDERS: PCP Internal Medicine; Visit Provider Urology | DX: N20.0 Calculus of kidney (principal); R32 Unspecified urinary incontinence | CPT/HCPCS: 51798; 99212 ==

== ENCOUNTER 2022-01-17 11:56 | Outpatient (REF) | payer MEDICARE, MEDICAID, SELFPAY ==
[2022-01-17 19:04] LABS: CT PCR NOT DETECTED (Not Detect.); NG PCR NOT DETECTED (Not Detect.)
== END 2022-01-17 11:57 | disposition home or self-care (01) ==
LOC: HO.LNP 11:56
PROVIDERS: PCP Internal Medicine; Visit Provider Obstetrics & Gynecology
DX: Z32.02 Encounter for pregnancy test, result negative (principal); Z30.430 Encounter for insertion of intrauterine contraceptive device
CPT/HCPCS: 58300; 81025; 87491; 87591; J7298

== ENCOUNTER → 2022-02-19 10:31 | Outpatient (BNVA) | payer MEDICARE, MEDICAID, SELFPAY | PROVIDERS: PCP Internal Medicine; Visit Provider Obstetrics & Gynecology | DX: Z30.431 Encounter for routine checking of intrauterine contraceptive device (principal) | CPT/HCPCS: 81025; 99212 ==

== ENCOUNTER → 2022-02-20 10:14 | Outpatient (BNVA) | payer MEDICARE, MEDICAID, SELFPAY | PROVIDERS: PCP Internal Medicine; Visit Provider Nurse Practitioner | DX: Z01.818 Encounter for other preprocedural examination (principal); K31.84 Gastroparesis; K59.04 Chronic idiopathic constipation; K21.9 Gastro-esophageal reflux disease without esophagitis; R14.0 Abdominal distension (gaseous) | CPT/HCPCS: 99212 ==

== ENCOUNTER 2022-02-26 08:24 | Outpatient (REF) | payer MEDICARE, MEDICAID, SELFPAY ==
[2022-02-26 08:35] LABS: MANUAL DIFF FLAG NO
[2022-02-26 09:15] LABS: Appearance Urine Clear; Color Urine Yellow; Glucose Urine UA Negative (Negative); Leukocyte Esterase Urine Negative (Negative); Nitrite Urine Negative (Negative); PH 7.5 (5.0-9.0); Urine Blood Negative (Negative); Urine Ketones Negative (Negative); Urine Protein Negative (Neg-Trace)
[2022-02-26 09:16] LABS: Basophils Percent Auto 0.5 % (0-2); Eosinophils Absolute Auto 0.2 X10*3/uL (0.0-0.4); Hematocrit 36.3 % (37.0-47.0); Hemoglobin 11.5 g/dl (12.0-16.0); Imm Gran Abs Auto 0.02 X10*3/uL (0.00-0.03); Imm Gran Pct Auto 0.3 % (0.0-0.4); Lymphocytes Absolute Auto 1.8 X10*3/uL (1.2-4.9); Lymphocytes Percent Auto 23.8 % (20-40); Mean Corpuscular HGB Conc 31.7 g/dl (31.0-35.0); Mean Corpuscular Volume 85.2 fL (80.0-98.0); Mean Platelet Volume 11.1 fL (9.4-12.3); Monocytes Absolute Auto 0.8 X10*3/uL (0.1-1.2); Monocytes Percent Auto 9.9 % (2-11); Neutrophils Absolute Auto 4.8 x10*3/uL (2.0-8.3); Neutrophils Percent Auto 63.5 % (45-73); Platelet Count 302 X10*3/uL (160-400); Red Blood Count 4.26 X10*6/uL (4.20-5.50); Red Cell Distribution Width 13.6 % (11.0-16.0); White Blood Count 7.6 X10*3/uL (4.8-10.8)
[2022-02-26 09:38] LABS: Estimated Average Glucose 94 mg/dL; Hemoglobin A1c % 4.9 %
[2022-02-26 09:57] LABS: Alanine Aminotransferase 15 U/L (0-31); Albumin Level 4.2 g/dL (3.5-5.0); Alkaline Phosphatase 52 U/L (39-117); Anion Gap 10 (12-20); Aspartate Amino Transferase 20 U/L (5-31); Bilirubin Total 0.5 mg/dL (0.0-1.0); Blood Urea Nitrogen 21 mg/dL (9-16); Calcium 9.3 mg/dL (8.4-10.2); Carbon Dioxide 24 mmol/L (22-29); Chloride 108 mmol/L (96-108); Cholesterol 113 mg/dL; Estimated Glomerular Filt Rate > 60; Free T4 (Free Thyroxine) 0.92 ng/dL (0.71-1.85); Glucose Fasting 79 mg/dL (60-99); HDL Cholesterol 48 mg/dL; LDL Cholesterol Calculated 53 mg/dl; Potassium 4.4 mmol/L (3.3-5.1); Sodium 138 mmol/L (135-145); Thyroid Stimulating Hormone 3.03 uIU/mL (0.32-4.0); Total Protein 7.2 g/dL (6.5-8.0); Triglycerides 61 mg/dL; Vitamin D 25-OH Total 32.9 ng/mL (>30)
[2022-02-26 10:22] LABS: Creatinine Urine 110.69 mg/dL; Microalbum/Creatinine Ratio Ur 14.4 ug/mg cr
== END 2022-02-26 08:25 | disposition home or self-care (01) ==
LOC: HO.LAB 08:24
PROVIDERS: PCP Internal Medicine; Visit Provider Internal Medicine
DX: E03.9 Hypothyroidism, unspecified (principal); E55.9 Vitamin D deficiency, unspecified; E11.9 Type 2 diabetes mellitus without complications; I10 Essential (primary) hypertension; E78.00 Pure hypercholesterolemia, unspecified
CPT/HCPCS: 36415; 80053; 80061; 81003; 82043; 82306; 83036; 84439; 84443; 85025

== ENCOUNTER → 2022-03-02 08:26 | Outpatient (BNVA) | payer MEDICARE, MEDICAID, SELFPAY | PROVIDERS: PCP Internal Medicine; Visit Provider Dietitian, Registered | DX: E11.9 Type 2 diabetes mellitus without complications (principal) | CPT/HCPCS: 97803 ==

== ENCOUNTER 2022-05-09 08:23 | Outpatient (REF) | payer MEDICARE, MEDICAID, SELFPAY ==
--- NOTE | ~2022-05-09 | MM_ITS ---
EXAMINATION: MM SCREENING DIGITAL BREAST TOMOSYNTHESIS, BILATERAL CLINICAL INFORMATION: Screening. Asymptomatic. The lifetime risk of breast cancer based on the Tyrer-Cuzick Model is 15%. COMPARISON: Mammography: 04/20/2021, 03/28/2020, 01/13/2019, 12/26/2017, 08/24/2016 TECHNIQUE: Digital breast tomosynthesis is performed in both the craniocaudal and mediolateral oblique views along with computer-aided detection (CAD). Synthesized 2D images are generated from the tomosynthesis. FINDINGS: There are scattered areas of fibroglandular density (ACR BI-RADS breast composition Category b). Right breast parenchymal pattern is similar to prior studies. There are scattered bilateral predominantly vascular calcifications. Incidental small intramammary node again seen posterior upper outer left breast. The axilla and skin contours are unremarkable. Left CC view has irregular asymmetric density mid medial breast approximately 8:00 position on tomography which is more conspicuous when compared with prior exams. There is no definite MLO correlate in this could represent summation artifact. Patient will be recalled for additional imaging. MM/MM tomosynthesis screening BI IMPRESSION: Left: -Asymmetric density mid medial breast on CC view. Right: -No mammographic evidence of malignancy. ASSESSMENT: BI-RADS 0: Incomplete - Need Additional Imaging Evaluation RECOMMENDATION: 1. Additional views of the left breast (rolled CC x2, standard ML). 2. Targeted ultrasound if warranted after review of the additional views. 3. Radiology department staff will contact the patient for additional imaging. This patient's information was entered into a reminder system with a target due date for their next mammogram.
== END 2022-05-09 08:24 | disposition home or self-care (01) ==
LOC: HO.MAMMO 08:23
PROVIDERS: PCP Internal Medicine; Visit Provider Internal Medicine
DX: Z12.31 Encounter for screening mammogram for malignant neoplasm of breast (principal)
CPT/HCPCS: 77063; 77067

== ENCOUNTER → 2022-05-23 09:43 | Outpatient (BNVA) | payer MEDICARE, MEDICAID, SELFPAY | PROVIDERS: PCP Internal Medicine; Referring Provider Internal Medicine; Visit Provider Internal Medicine Cardiovascular Disease | DX: E78.00 Pure hypercholesterolemia, unspecified (principal) | CPT/HCPCS: 93005; 99212 ==

== ENCOUNTER 2022-05-25 12:24 | Outpatient (REF) | payer MEDICARE, MEDICAID, SELFPAY ==
--- NOTE | ~2022-05-25 | MM_ITS ---
EXAMINATION: MM DIAGNOSTIC DIGITAL BREAST TOMOSYNTHESIS, LEFT. TARGETED LEFT BREAST ULTRASOUND CLINICAL INFORMATION: Asymmetric density medial aspect of the left breast. COMPARISON: Mammography: 05/09/2022 and studies dating back to 2016 TECHNIQUE: Digital breast tomosynthesis is performed. 2D images are generated from the tomosynthesis. The following views are obtained: Rolled craniocaudal views as well as 90 degree mediolateral view. TARGETED LEFT BREAST ULTRASOUND: FINDINGS: There are scattered areas of fibroglandular density (ACR BI-RADS breast composition Category b). Additional views of the left breast show some effacement of the density but with persistence. No suspicious associated calcifications are noted. Targeted ultrasound evaluation about the medial aspect of the left breast did not demonstrate any abnormal cystic or solid mass. No region of abnormal distal sound shadowing was appreciated. No edematous change was noted within the parenchyma. Six-month follow-up left breast mammogram is suggested. Results are discussed with the patient at time of visit. MM/MM tomosynthesis added views L IMPRESSION: Left breast density medially for which 6 month follow-up study is recommended. ASSESSMENT: BI-RADS 3: Probably Benign RECOMMENDATION: Diagnostic mammography in 6 months. This patient's information was entered into a reminder system with a target due date for their next mammogram.
== END 2022-05-25 12:25 | disposition home or self-care (01) ==
LOC: HO.MAMMO 12:24
PROVIDERS: PCP Internal Medicine; Visit Provider Internal Medicine
DX: N64.89 Other specified disorders of breast (principal)
CPT/HCPCS: 76642; 77061; 77065

== ENCOUNTER 2022-06-11 08:35 | Outpatient (REF) | payer MEDICARE, MEDICAID, SELFPAY ==
[2022-06-11 08:52] LABS: MANUAL DIFF FLAG NO
[2022-06-11 09:17] LABS: Basophils Absolute Auto 0.1 X10*3/uL (0.0-0.2); Basophils Percent Auto 0.6 % (0-2); Eosinophils Absolute Auto 0.2 X10*3/uL (0.0-0.4); Eosinophils Percent Auto 2.3 % (0-4); Hematocrit 35.4 % (37.0-47.0); Hemoglobin 11.3 g/dl (12.0-16.0); Imm Gran Abs Auto 0.04 X10*3/uL (0.00-0.03); Imm Gran Pct Auto 0.4 % (0.0-0.4); Lymphocytes Absolute Auto 2.1 X10*3/uL (1.2-4.9); Lymphocytes Percent Auto 22.9 % (20-40); Mean Corpuscular HGB Conc 31.9 g/dl (31.0-35.0); Mean Corpuscular Hemoglobin 27.6 pg (27.0-33.0); Mean Corpuscular Volume 86.3 fL (80.0-98.0); Mean Platelet Volume 11.2 fL (9.4-12.3); Monocytes Absolute Auto 0.8 X10*3/uL (0.1-1.2); Monocytes Percent Auto 8.4 % (2-11); Neutrophils Absolute Auto 5.9 x10*3/uL (2.0-8.3); Neutrophils Percent Auto 65.4 % (45-73); Platelet Count 281 X10*3/uL (160-400); Red Cell Distribution Width 13.7 % (11.0-16.0)
[2022-06-11 09:28] LABS: Estimated Average Glucose 103 mg/dL; Hemoglobin A1c % 5.2 %
[2022-06-11 10:01] LABS: Appearance Urine Clear; Color Urine Yellow; Glucose Urine UA Negative (Negative); Leukocyte Esterase Urine Negative (Negative); Nitrite Urine Negative (Negative); Urine Blood Negative (Negative); Urine Ketones Trace mg/dL (Negative); Urine Protein Negative (Neg-Trace)
[2022-06-11 10:03] LABS: Alanine Aminotransferase 9 U/L (0-31); Alkaline Phosphatase 53 U/L (39-117); Anion Gap 11 (12-20); Aspartate Amino Transferase 16 U/L (5-31); Bilirubin Total 0.5 mg/dL (0.0-1.0); Blood Urea Nitrogen 16 mg/dL (9-16); Calcium 9.1 mg/dL (8.4-10.2); Carbon Dioxide 23 mmol/L (22-29); Chloride 109 mmol/L (96-108); Cholesterol 118 mg/dL; Estimated Glomerular Filt Rate > 60; Glucose Fasting 84 mg/dL (60-99); HDL Cholesterol 46 mg/dL; LDL Cholesterol Calculated 52 mg/dl; Potassium 4.8 mmol/L (3.3-5.1); Sodium 138 mmol/L (135-145); Triglycerides 102 mg/dL
[2022-06-11 10:13] LABS: Free T4 (Free Thyroxine) 0.78 ng/dL (0.71-1.85); Thyroid Stimulating Hormone 3.54 uIU/mL (0.32-4.0); Vitamin D 25-OH Total 37.6 ng/mL (>30)
[2022-06-11 10:38] LABS: Creatinine Urine 146.86 mg/dL; Microalbum/Creatinine Ratio Ur 5.4 ug/mg cr
== END 2022-06-11 08:36 | disposition home or self-care (01) ==
LOC: HO.LAB 08:35
PROVIDERS: PCP Internal Medicine; Visit Provider Internal Medicine
DX: I10 Essential (primary) hypertension (principal); E78.00 Pure hypercholesterolemia, unspecified; E03.9 Hypothyroidism, unspecified; E11.9 Type 2 diabetes mellitus without complications; E55.9 Vitamin D deficiency, unspecified; R30.0 Dysuria
CPT/HCPCS: 36415; 80053; 80061; 81003; 82043; 82306; 83036; 84439; 84443; 85025

== ENCOUNTER → 2022-09-06 09:19 | Outpatient (BNVA) | payer MEDICARE, MEDICAID, SELFPAY | PROVIDERS: PCP Internal Medicine; Visit Provider Obstetrics & Gynecology ==

== ENCOUNTER 2022-10-15 07:57 | Outpatient (REF) | payer MEDICARE, MEDICAID, SELFPAY ==
[2022-10-15 08:13] LABS: MANUAL DIFF FLAG NO
[2022-10-15 08:57] LABS: Basophils Absolute Auto 0.1 X10*3/uL (0.0-0.2); Basophils Percent Auto 0.6 % (0-2); Eosinophils Absolute Auto 0.1 X10*3/uL (0.0-0.4); Eosinophils Percent Auto 1.1 % (0-4); Hematocrit 36.7 % (37.0-47.0); Hemoglobin 11.4 g/dl (12.0-16.0); Imm Gran Abs Auto 0.04 X10*3/uL (0.00-0.03); Imm Gran Pct Auto 0.4 % (0.0-0.4); Lymphocytes Percent Auto 21.9 % (20-40); Mean Corpuscular HGB Conc 31.1 g/dl (31.0-35.0); Mean Corpuscular Hemoglobin 26.7 pg (27.0-33.0); Mean Corpuscular Volume 85.9 fL (80.0-98.0); Mean Platelet Volume 11.6 fL (9.4-12.3); Monocytes Absolute Auto 0.8 X10*3/uL (0.1-1.2); Monocytes Percent Auto 8.5 % (2-11); Neutrophils Absolute Auto 6.2 x10*3/uL (2.0-8.3); Neutrophils Percent Auto 67.5 % (45-73); Platelet Count 294 X10*3/uL (160-400); Red Blood Count 4.27 X10*6/uL (4.20-5.50); Red Cell Distribution Width 13.4 % (11.0-16.0); White Blood Count 9.2 X10*3/uL (4.8-10.8)
[2022-10-15 09:00] LABS: Appearance Urine Clear; Color Urine Yellow; Glucose Urine UA Negative (Negative); Leukocyte Esterase Urine Negative (Negative); Nitrite Urine Negative (Negative); Urine Blood Negative (Negative); Urine Ketones Trace mg/dL (Negative); Urine Protein Negative (Neg-Trace)
[2022-10-15 09:02] LABS: Estimated Average Glucose 91 mg/dL; Hemoglobin A1c % 4.8 %
[2022-10-15 09:34] LABS: Alanine Aminotransferase 11 U/L (0-31); Alkaline Phosphatase 53 U/L (39-117); Anion Gap 13 (12-20); Aspartate Amino Transferase 18 U/L (5-31); Bilirubin Total 0.4 mg/dL (0.0-1.0); Blood Urea Nitrogen 18 mg/dL (9-16); Calcium 9.8 mg/dL (8.4-10.2); Carbon Dioxide 21 mmol/L (22-29); Chloride 110 mmol/L (96-108); Cholesterol 115 mg/dL; Estimated Glomerular Filt Rate > 60; Glucose Fasting 83 mg/dL (60-99); HDL Cholesterol 46 mg/dL; LDL Cholesterol Calculated 51 mg/dl; Potassium 4.6 mmol/L (3.3-5.1); Sodium 139 mmol/L (135-145); Total Protein 7.6 g/dL (6.5-8.0); Triglycerides 91 mg/dL
[2022-10-15 09:53] LABS: Free T4 (Free Thyroxine) 0.75 ng/dL (0.71-1.85); Thyroid Stimulating Hormone 4.25 uIU/mL (0.32-4.0); Vitamin D 25-OH Total 44.1 ng/mL (>30)
[2022-10-15 09:57] LABS: Folate 10.9 ng/mL (> or = 4.0); Vitamin B12 463 pg/mL (200-900)
[2022-10-15 11:04] LABS: Creatinine Urine 155.13 mg/dL; Microalbum/Creatinine Ratio Ur 8.3 ug/mg cr
== END 2022-10-15 07:58 | disposition home or self-care (01) ==
LOC: HO.LAB 07:57
PROVIDERS: PCP Internal Medicine; Visit Provider Internal Medicine
DX: E78.00 Pure hypercholesterolemia, unspecified (principal); I10 Essential (primary) hypertension; E11.9 Type 2 diabetes mellitus without complications; E53.8 Deficiency of other specified B group vitamins; E03.9 Hypothyroidism, unspecified; R30.0 Dysuria; E55.9 Vitamin D deficiency, unspecified
CPT/HCPCS: 36415; 80053; 80061; 81003; 82043; 82306; 82607; 82746; 83036; 84439; 84443; 85025

== ENCOUNTER 2022-10-24 10:18 | Outpatient (AMB) | payer MEDICARE, MEDICAID, SELFPAY ==
[2022-10-24 10:20] VITALS: BP 110/80; PULSE 71; O2SAT 99; BMI 32.4
--- NOTE | 2022-10-24 10:20 | A.OFFPC_ITS ---
Vital Signs 10/24/22 10:20 Height 5 ft Weight 166 lb BMI 32.4 BP 110/80 Blood Pressure Location Lt brachial Position Sitting Pulse 71 Pulse Source Pulse Oximeter Pulse Oximetry (%) 99 Oxygen Delivery Method Room Air Intake Visit Reasons: 3mth f/u Executive Assistant Required: No Accompanied by: Self / Same As Patient Allergies lisinopril [LISINOPRIL] Allergy (Severe, Verified 10/24/22 10:58) ANAPYHLAXIS, swelling metformin [METFORMIN] Allergy (Severe, Verified 10/24/22 10:58) ANAPHYLAXIS, diarrhea sumatriptan [From IMITREX] Allergy (Severe, Verified 10/24/22 10:58) ANAPHYLAXIS, sedation Medication List - Last Reconciled 10/24/22 by Juve Crawford MD acarbose 1/2 tab breakfast, 1 tab lunch and dinner, 1/2 tab for hs snack PO 4 times a day; alcohol swabs (Alcohol Pads) 1 pad topical TID 30 days alprazolam 1 mg PO TID PRN bisacodyl 5 - 10 mg (1 - 2 x 5 mg) PO BEDTIME 90 days blood sugar diagnostic (FreeStyle Lite Strips) test blood sugar once a day as instructed - frequent low blood sugar readings blood-glucose meter (FreeStyle Lite Meter kit) As directed once a day cetirizine 10 mg PO DAILY PRN 90 days clonidine HCl 0.1 mg PO DAILY cyanocobalamin (vitamin B-12) 500 mcg sublingual daily, saturday - saturday; 30 days dexlansoprazole 60 mg PO DAILY dicyclomine 20 mg PO QID PRN ferrous sulfate 325 mg PO DAILY fluticasone propionate 50 mcg/actuation 1 spray intranasal DAILY ibuprofen 800 mg PO TID PRN 30 days ipratropium bromide 1 spray intranasal BID lancets (FreeStyle Lancets) test blood sugar once as instructed - frequent LOW blood sugar readings levonorgestrel (Mirena) intrauterine levothyroxine 25 mcg PO DAILY 90 days linaclotide (Linzess) 290 mcg PO DAILY 30 days melatonin 5 - 10 mg PO BEDTIME PRN meloxicam 15 mg PO DAILY metoclopramide HCl (Reglan) 10 mg PO QIDACHS mometasone 0.1% 1 appl topical DAILY PRN gqvlkgeszzgo-xmdd-daoqx acid 18-400 mg-mcg (Certavite-Antioxidant) 1 tab PO DAILY oxybutynin chloride ER 10 mg PO DAILY 30 days peg 3350-electrolytes 236-22.74-6.74 -5.86 gram (Golytely) 240 mL PO Q10M 1 day rosuvastatin (Crestor) 5 mg PO DAILY simethicone 180 mg PO QID 30 days topiramate 100 mg PO BEDTIME 90 days tramadol 1 tablet 1 to 2 times a day orally ONLY NEEDED for SEVERE PAIN; 10 days Tobacco use date assessed: 10/24/22 Dental Screening Dental Screen Date: 10/24/22 Did you have a dental visit in the last 12 months?: No Did you have a dental problem in the last 6 months where you did not have access to dental care?: No Was dental information given to patient?: No HPI 3mth f/u HPI Details Patient comes in today for her follow up visit States that she feels okay She denies any headaches or dizziness Denies any chest pains, no SOB No nausea/vomiting, no abdominal pain No change in bowel habits noted States that her low back pain and joint pains remain adequately controlled on her current Rx Needs a couple of her Rx refilled Had her follow up labs done last week - to discuss her results [facility] Medical History Allergic rhinitis Anal fissure Anemia Anxiety Arthritis B12 deficiency Chronic pain syndrome Constipation Costochondritis Diabetes mellitus Dyslipidemia EKG abnormalities Gastroparesis GERD (gastroesophageal reflux disease) Hepatitis A Hepatitis B Hepatomegaly Hypoglycemia after GI (gastrointestinal) surgery Hypothyroidism (acquired) Insomnia Leukocytosis Lumbar degenerative disc disease Migraine Obesity (BMI 30-39.9) Occipital neuralgia of left side MIO on CPAP Proteinuria Pure hypercholesterolemia Recurrent chest pain Renal calculi Renal stones Shoulder pain, left Spondylosis of cervical spine without myelopathy 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 Upper abdominal pain Vitamin D deficiency Surgical History H/O gastric bypass History of esophagogastroduodenoscopy (EGD) History of tubal ligation History of umbilical hernia Hx of bilateral breast reduction surgery Hx of section Hx of cholecystectomy Hx of lithotripsy Family History Father Liver cancer Hypertension Diabetes mellitus CVD (cardiovascular disease) Liver failure Mother Hypercholesterolemia Breast cancer Asthma Depression Maternal Grandmother Diabetes mellitus Hypertension Paternal Grandmother Diabetes mellitus Hypertension Social History Household Members: Significant Other Housing: House Alcohol intake: never Patient Tobacco Use Status: Never used Tobacco e-Cigarette/Vaping Use: Never Used Second Hand Smoke Exposure: Yes service: No Current occupational status: disabled Cognitive needs: No Hearing needs: No Vision needs: Yes Female Reproductive History Menstrual Age of Menarche: 11 Questionnaire PHQ-9 Over the last 2 weeks, how often have you been bothered by any of the following problems? 1. Little interest or pleasure in doing things: not at all 2. Feeling down, depressed, or hopeless: not at all 3. Trouble falling or staying asleep, or sleeping too much: not at all 4. Feeling tired or having little energy: not at all 5. Poor appetite or overeating: not at all 6. Feeling bad about yourself - or that you are a failure or have let yourself or your family down: not at all 7. Trouble concentrating on things, such as reading the newspaper or watching television: not at all 8. Moving or speaking so slowly that other people could have noticed. Or the opposite - being so fidgety or restless that you have been moving around a lot more than usual: not at all 9. Thoughts that you would be better off or of hurting yourself in some way: not at all Total score: 0 Depression Screening Interpretation: Negative 17940 - PHQ-9 Billing: Yes Source: Developed by Drs. Arthur Duran, Amira Brownlee, Nikos Pelayo and colleagues, with an educational beatriz from [employer]. Thrive Questionnaire Date Thrive assessed: 10/24/22 I am a: Patient What is your living situation today?: I have a steady place to live Within the past 12 months, did the food you bought not last and you didn't have the money to get more?: Never true Within the past 12 months, did you worry whether your food would run out before you got money to buy more?: Never true Do you have trouble paying for medicines?: No Do you have trouble getting transportation to medical appointments?: No Do you have trouble paying your heating and electricity bill?: No Do you have trouble taking care of your child, family member or friend?: No Do you have trouble with day-to-day activities such as bathing, preparing meals, shopping, managing finances, etc.?: No Are you currently unemployed and looking for a job?: No Are you interested in more education?: No Please select the resources that you would like help with: None Currently or been in a relationship where the following occur: no concerns reported AUDIT C Alcohol Use Questionnaire (AUDIT-C) 1. How often do you have a drink containing alcohol?: Never 3. How often do you have six or more drinks on one occasion?: Never Total Score: 0 Score Reviewed/Action Taken: Yes SUSAN-7 AMB Questionnaire SUSAN-7 Date SUSAN - 7 assessed: 10/24/22 Feeling nervous, anxious, or on edge: 0 = Not at all Not being able to stop or control worryin = Not at all Worrying too much about different things: 0 = Not at all Trouble relaxin = Not at all Being so restless that it is hard to sit still: 0 = Not at all Becoming easily annoyed or irritable: 0 = Not at all Feeling afraid as if something awful might happen: 0 = Not at all Total SUSAN-7 score (0-4 normal; 5-9 mild; 10-14 moderate; 15-21 severe): 0 Source: Developed by Drs. Arthur Duran, Amira Brownlee, Nikos Pelayo and colleagues, with an educational beatriz from [employer]. Review of Systems Const Reports fatigue, Denies fever(s) and Denies headache(s) (better controlled) ENT Denies dysphagia, Denies dizziness, Denies headache(s) (better controlled), Reports neck pain and Denies sore throat Card Denies chest pain, Denies lightheadedness, Denies palpitations and Denies dyspnea Resp Denies cough, Denies dyspnea and Denies wheezing GI Denies abdominal pain, Reports constipation (chronic), Denies dysphagia, Denies diarrhea, Denies nausea and Denies vomiting Musc Reports back pain (chronic), Reports neck pain, Reports radiating pain into limb (down right leg and into the foot) and Denies tingling Neuro Denies dizziness, Denies headache(s) (better controlled) and Denies tingling Endo Reports fatigue and Denies palpitations Aller/Immun Denies wheezing Physical exam (Primary Care) Vital Signs: Last Vital Signs Pulse 71 10/24/22 10:20 BP 110/80 10/24/22 10:20 Pulse Ox 99 10/24/22 10:20 Oxygen Delivery Method Room Air 10/24/22 10:20 BMI result Body Mass Index 32.4 Tobacco/Smoking Status: Tobacco use Status Tobacco use date assessed 10/24/22 10/24/22 10:28 Patient Tobacco Use Status Never used Tobacco 10/24/22 10:28 e-Cigarette/Vaping Use Never Used 10/24/22 10:28 PHQ-9: PHQ-9 Score PHQ-9: Total score 0 10/24/22 10:28 Depression Screening Interpretation: Negative Thrive Assessment: Date of Thrive Assessment Date Thrive assessed 10/24/22 10/24/22 10:28 Currently or been in a relationship where the following occur: no concerns reported Const General: no acute distress and alert HENMT Ears: TM's normal bilaterally and EAC's normal Throat: Yes posterior oropharynx normal and Yes tonsils normal (no TP congestion noted) Neck Neck: Yes no lymphadenopathy and Yes supple Resp Auscultation: clear to auscultation bilaterally, no rales and no wheezes Cardio Rate: regular rate Rhythm: regular rhythm Heart sounds: no murmurs GI Palpation (GI): Soft to palpation and nontender Auscultation: normal bowel sounds Back/Spine/Pelvis Cervical Spine: Cervical spine tenderness Thoracic/Lumbar Spine: paraspinal muscle tenderness on the right in the upper lumbar, in the mid lumbar and in the lower lumbar and lumbar spinal tenderness Extrem General: Yes no clubbing, cyanosis or edema Results Reviewed Results Reviewed: Laboratory Tests 10/15/22 10/15/22 10/15/22 08:10 08:10 08:12 WBC 9.2 Hgb 11.4 L Hct 36.7 L Plt Count 294 Sodium Potassium Creatinine Estimated GFR Fasting Glucose Hemoglobin A1c % Calcium AST ALT Triglycerides Cholesterol LDL Cholesterol, Calc HDL Cholesterol Vitamin B12 25-OH Vitamin D Total TSH Free T4 Ur Specific [place] 1.020 Urine Protein Negative Urine Glucose (UA) Negative Urine Blood Negative Microalb/Creat Ratio 8.3 10/15/22 10/15/22 10/15/22 08:12 08:12 08:12 WBC Hgb Hct Plt Count Sodium 139 Potassium 4.6 Creatinine 0.83 Estimated GFR > 60 Fasting Glucose 83 Hemoglobin A1c % 4.8 Calcium 9.8 D AST 18 ALT 11 Triglycerides 91 Cholesterol 115 LDL Cholesterol, Calc 51 HDL Cholesterol 46 Vitamin B12 463 25-OH Vitamin D Total 44.1 TSH 4.25 H Free T4 0.75 Ur Specific [place] Urine Protein Urine Glucose (UA) Urine Blood Microalb/Creat Ratio Assessment and Plan Assessment & Plan (1) Pure hypercholesterolemia: Code(s): E78.00 - Pure hypercholesterolemia, unspecified Plan: Results of her labs done last week reviewed and discussed with patient Reinforced low cholesterol diet Continue Rosuvastatin 5 mg QD Will recheck her labs in 3 months for follow up (2) Diabetes mellitus: Code(s): E11.9 - Type 2 diabetes mellitus without complications Qualifiers: Diabetes mellitus type: type 2 Diabetes mellitus long term care social worker insulin use: without alf use Diabetes mellitus complication status: without complication Qualified Code(s): E11.9 - Type 2 diabetes mellitus without complications Plan: HgbA1c remains normal at 4.9% on her labs done last week; was at 5.2% a few months ago - goal is <6.5% Reinforced diabetic diet Continue Acarbose 100 mg TID Follow up with endocrinology as needed - has reportedly been advised by endocrinology that since her diabetes has been very well controlled, she can just follow up with her PCP and see endocrinology only as needed (3) Hypothyroidism (acquired): Code(s): E03.9 - Hypothyroidism, unspecified Plan: Advised that her serum TSH has increased and her free T4 level declined slightly from previous and we will need to adjust her thyroid Rx dose now Will increase her Levothyroxine from 25 mcg to 50 mcg QD Will continue to monitor her TFTs regularly (4) Migraine: Code(s): G43.909 - Migraine, unspecified, not intractable, without status migrainosus Qualifiers: Migraine type: unspecified Status migrainosus presence: without status migrainosus Intractability: not intractable Qualified Code(s): G43.909 - Migraine, unspecified, not intractable, without status migrainosus Plan: Stable on prophylactic Tx - continue Topiramate 100 mg Q HS Reinforced avoidance of potential migraine triggers (5) Chronic idiopathic constipation: Code(s): K59.04 - Chronic idiopathic constipation Plan: Reinforced increased oral fluids and dietary fiber Continue Linzess 290 mcg QD Follow up with GI as scheduled She is now scheduled for colonoscopy screening in a couple of weeks on 11/08/22 (6) GERD (gastroesophageal reflux disease): Code(s): K21.9 - Gastro-esophageal reflux disease without esophagitis Qualifiers: Esophagitis presence: without esophagitis Qualified Code(s): K21.9 - Gastro-esophageal reflux disease without esophagitis Plan: Dietary restrictions reinforced Continue Omeprazole 40 mg QD Follow up with GI as scheduled (7) Anemia: Code(s): D64.9 - Anemia, unspecified Qualifiers: Anemia type: unspecified type Qualified Code(s): D64.9 - Anemia, unspecified Plan: Stable although she is still midly anemic Continue Ferrous sulfate 325 mg QD and Vitamin B12 1000 mcg QD Follow up with hematology as scheduled (8) B12 deficiency: Code(s): E53.8 - Deficiency of other specified B group vitamins Plan: Corrected - continue Vitamin B12 tablets 1000 mcg QD (9) Vitamin D deficiency: Code(s): E55.9 - Vitamin D deficiency, unspecified Plan: Corrected - continue OTC Vitamin D supplements daily (10) Allergic rhinitis: Code(s): J30.9 - Allergic rhinitis, unspecified Qualifiers: Allergic rhinitis trigger: unspecified Allergic rhinitis seasonality: unspecified Qualified Code(s): J30.9 - Allergic rhinitis, unspecified Plan: Continue Fluticasone 50 mcg nasal spray QD PRN and Cetirizine 10 mg QD PRN (11) Lumbar degenerative disc disease: Code(s): M51.36 - Other intervertebral disc degeneration, lumbar region Plan: Reinforced activity and weight-lifting restrictions to minimize aggravating her low back pain Repeat lumbar spine x-rays done in April 2021 revealed (+) chronic changes of lumbar spine DDD Was sent for lumbar spine MRI for further evaluation but patient reportedly missed her appt and has not rescheduled Continue Ibuprofen 800 mg TID with food PRN for pain and Tramadol 50 mg 1 to 2 times a day ONLY as needed for SEVERE pain (12) Spondylosis of cervical spine without myelopathy: Code(s): M47.812 - Spondylosis without myelopathy or radiculopathy, cervical region Plan: Was seen by pain management a few months ago and recommended physical therapy and other modalities to help with her neck pain; recommended NO opioids as they do not think patient's current symptoms warrant Tx with long-term opioids She has been reportedly advised to follow up with them only on an as needed basis (13) Insomnia: Code(s): G47.00 - Insomnia, unspecified Qualifiers: Insomnia type: unspecified Qualified Code(s): G47.00 - Insomnia, unspecified Plan: Sleep hygiene reinforced Continue Amitriptyline 25 mg Q HS (14) Anxiety: Code(s): F41.9 - Anxiety disorder, unspecified Plan: Continue Alprazolam 1 mg TID PRN Follow up with psychiatry as scheduled (15) Obesity (BMI 30-39.9): Code(s): E66.9 - Obesity, unspecified Plan: Reinforced diet/exercise as tolerated/lose weight Plan Follow up in 3 months Orders: Orders Complete Blood Count Auto Diff 3 Months I10 - Essential (primary) hypertension Lipid Panel 3 Months E78.00 - Pure hypercholesterolemia, unspecified Comprehensive [place]. Panel Fast 3 Months E78.00 - Pure hypercholesterolemia, unspecified Free T4 (Free Thyroxine) 3 Months E03.9 - Hypothyroidism, unspecified Vitamin D 25-OH Total 3 Months E55.9 - Vitamin D deficiency, unspecified UA CC w/rflx Micro + Cult 3 Months R30.0 - Dysuria Microalbumin, Random (w Creat) 3 Months E11.9 - Type 2 diabetes mellitus without complications Hemoglobin A1c 3 Months E11.9 - Type 2 diabetes mellitus without complications Thyroid Stimulating Hormone 3 Months E03.9 - Hypothyroidism, unspecified Vitamin B12 and Folate 3 Months E53.8 - Deficiency of other specified B group vitamins Medications: Changed From levothyroxine 25 mcg PO DAILY 90 days 90 tabs 1RF E03.9 - Hypothyroidism, unspecified To levothyroxine 50 mcg PO DAILY 90 days 90 tabs 1RF E03.9 - Hypothyroidism, unspecified From tramadol 1 tablet 1 to 2 times a day orally ONLY NEEDED for SEVERE PAIN; 10 days 10 tabs 0RF pain 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 [Tietze] To tramadol 1 tablet 1 to 2 times a day orally ONLY NEEDED for SEVERE PAIN; 30 days 30 tabs 0RF pain 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 [Tietze] Refilled topiramate 100 mg PO BEDTIME 90 days 90 tabs 1RF G43.909 - Migraine, unspecified, not intractable, without status migrainosus Coding Level of Care Code Est Pt Level 4 (77865) Diagnoses Pure hypercholesterolemia E78.00 Diabetes mellitus E11.9 Diabetes mellitus type: type 2 Diabetes mellitus long term care social worker insulin use: without long term care social worker use Diabetes mellitus complication status: without complication Hypothyroidism (acquired) E03.9 Migraine G43.909 Migraine type: unspecified Status migrainosus presence: without status migrainosus Intractability: not intractable Chronic idiopathic constipation K59.04 GERD (gastroesophageal reflux disease) K21.9 Esophagitis presence: without esophagitis Anemia D64.9 Anemia type: unspecified type B12 deficiency E53.8 Vitamin D deficiency E55.9 Allergic rhinitis J30.9 Allergic rhinitis trigger: unspecified Allergic rhinitis seasonality: unspecified Lumbar degenerative disc disease M51.36 Spondylosis of cervical spine without myelopathy M47.812 Insomnia G47.00 Insomnia type: unspecified Anxiety F41.9 Obesity (BMI 30-39.9) E66.9
== END 2022-10-24 11:10 | disposition home or self-care (01) ==
PROVIDERS: PCP Internal Medicine; Visit Provider Internal Medicine
DX: E11.9 Type 2 diabetes mellitus without complications (principal); E03.9 Hypothyroidism, unspecified; G43.909 Migraine, unspecified, not intractable, without status migrainosus; K21.9 Gastro-esophageal reflux disease without esophagitis; E78.00 Pure hypercholesterolemia, unspecified; K59.04 Chronic idiopathic constipation; D64.9 Anemia, unspecified; E53.8 Deficiency of other specified B group vitamins; E55.9 Vitamin D deficiency, unspecified; J30.9 Allergic rhinitis, unspecified; M51.36 Other intervertebral disc degeneration, lumbar region; M47.812 Spondylosis without myelopathy or radiculopathy, cervical region
CPT/HCPCS: 99214

== ENCOUNTER 2022-11-08 11:23 | Day surgery (SDC) | payer MEDICARE, MEDICAID, SELFPAY ==
[2022-11-06 14:51] VITALS: BMI 33.2
--- NOTE | 2022-11-07 13:05 | P.CONAN_ITS ---
Documented by User: Sary Schwarz NP 11/07/22 13:08 HPI - Anesthesia Eval Consult details Narrative: 46yo F for Colonoscopy PMFSH Active Problems Active Problems: All Active Problems (Updated 02/20/22 @ 11:01 by LEONARDO Newell) Pre-op examination (Acute) IUD check up (Acute) Encounter for IUD insertion (Acute) OAB (overactive bladder) (Acute) History of kidney stones (Acute) Hypothyroidism (acquired) (Acute) Renal calculi (Acute) Spondylosis of lumbar spine (Acute) Lumbosacral radiculopathy due to degenerative joint disease of spine (Acute) Lumbar radicular pain (Acute) Internal derangement of right knee (Acute) Internal derangement of right knee (Acute) Sinus pain (Acute) DM2 (diabetes mellitus, type 2) (Acute) Hypothyroidism (Acute) Subclinical hypothyroidism (Acute) ASCUS of cervix with negative high risk HPV (Acute) Urine incontinence (Acute) Pelvic pain (Acute) Abnormal uterine bleeding (AUB) (Acute) Well woman exam (Acute) Cough (Acute) Rhinitis (Acute) Eczema (Acute) Lumbar back pain with radiculopathy affecting right lower extremity (Acute) Nephrolithiasis (Acute) Myalgia (Acute) Fatigue (Acute) Insomnia (Acute) Anemia (Chronic) Abdominal bloating (Acute) Abdominal cramping (Acute) Dysphagia (Acute) EKG abnormalities (Acute) Anxiety (Acute) Foreign body in throat (Acute) Vitamin D deficiency (Acute) Pure hypercholesterolemia (Acute) Obesity (BMI 30-39.9) (Acute) Costochondritis (Acute) Recurrent chest pain (Acute) Lumbar degenerative disc disease (Acute) Migraine (Acute) Allergic rhinitis (Acute) Diabetes mellitus (Acute) Abdominal bloating (Acute) Chronic idiopathic constipation (Acute) GERD (gastroesophageal reflux disease) (Acute) Gastroparesis (Acute) Shoulder pain, left (Acute) Occipital neuralgia of left side (Acute) Chronic pain syndrome (Acute) Spondylosis of cervical spine without myelopathy (Acute) Type 2 diabetes mellitus in remission (Acute) Hypoglycemia after GI (gastrointestinal) surgery (Acute) Dyslipidemia (Acute) B12 deficiency (Acute) Past Medical History Medical History Allergic rhinitis Anal fissure Anemia Anxiety Arthritis B12 deficiency Chronic pain syndrome Constipation Costochondritis Diabetes mellitus Dyslipidemia EKG abnormalities Gastroparesis GERD (gastroesophageal reflux disease) Hepatitis A Hepatitis B Hepatomegaly Hypoglycemia after GI (gastrointestinal) surgery Hypothyroidism (acquired) Insomnia Leukocytosis Lumbar degenerative disc disease Migraine Obesity (BMI 30-39.9) Occipital neuralgia of left side MIO on CPAP Proteinuria Pure hypercholesterolemia Recurrent chest pain Renal calculi Renal stones Shoulder pain, left Spondylosis of cervical spine without myelopathy 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 Upper abdominal pain Vitamin D deficiency Family History Family History Father Liver cancer Hypertension Diabetes mellitus CVD (cardiovascular disease) Liver failure Mother Hypercholesterolemia Breast cancer Asthma Depression Maternal Grandmother Diabetes mellitus Hypertension Paternal Grandmother Diabetes mellitus Hypertension Surgical History Surgical History H/O gastric bypass History of esophagogastroduodenoscopy (EGD) History of tubal ligation History of umbilical hernia Hx of bilateral breast reduction surgery Hx of section Hx of cholecystectomy Hx of lithotripsy Social History Social History Household Members: Significant Other Housing: House Alcohol intake: never Patient Tobacco Use Status: Never used Tobacco e-Cigarette/Vaping Use: Never Used Second Hand Smoke Exposure: Yes service: No Current occupational status: disabled Cognitive needs: No Hearing needs: No Vision needs: Yes Meds Allergies Allergy/AdvReac Type Severity Reaction Status Date / Time lisinopril [LISINOPRIL] Allergy Severe ANAPYHLAXIS, Verified 10/24/22 10:58 swelling metformin [METFORMIN] Allergy Severe ANAPHYLAXIS, Verified 10/24/22 10:58 diarrhea sumatriptan [From IMITREX] Allergy Severe ANAPHYLAXIS, Verified 10/24/22 10:58 sedation Home Medications Medication Instructions Recorded Confirmed Last Taken Type alprazolam 1 mg tablet 1 mg PO TID PRN Anxiety 02/10/20 11/08/22 Unknown History clonidine HCl 0.1 mg tablet 0.1 mg PO DAILY anxiety 01/02/21 11/08/22 Unknown History levonorgestrel 21 mcg/24 hours (8 1 device intrauterine ONCE 02/19/22 11/08/22 Unknown History yrs) 52 mg intrauterine device (Mirena) ipratropium bromide 42 mcg (0.06 1 spray intranasal BID 05/23/22 11/08/22 Unknown History %) nasal spray melatonin 5 mg tablet 5 - 10 mg PO BEDTIME PRN insomnia 05/23/22 10/24/22 Unknown History dexlansoprazole 60 mg 60 mg PO DAILY 09/11/22 11/08/22 Unknown History capsule,biphase delayed release dicyclomine 20 mg tablet 20 mg PO QID PRN abdominal pain 09/11/22 11/08/22 Unknown History multivitamin-ferrous 1 tab PO DAILY 09/11/22 10/24/22 Unknown History fumarate-folic acid 18 mg-400 mcg tablet (Certavite-Antioxidant) acarbose 100 mg tablet 100 mg PO TID 11/08/22 11/08/22 Unknown History Exam Exam Date and Time: November 07, 2022 1305 Height,Weight and Vital Signs: Height 5 ft Weight 77.111 kg Pertinent Lab Results Pertinent Lab Results: Laboratory Tests 10/15/22 10/15/22 08:12 08:12 WBC 9.2 Hgb 11.4 L Hct 36.7 L Plt Count 294 Sodium 139 Potassium 4.6 Chloride 110 H Carbon Dioxide 21 L BUN 18 H Creatinine 0.83 Narrative Narrative: EKG 05/2022 Sinus rhythm 70 beats per minute, normal ECG, QTC 425 milliseconds. Assessment and Plan Assessment Anesthesia Assessment: Chart Reviewed Documented by User: Tyler Epps MD 11/08/22 16:47 [facility] Past Medical History Medical History Allergic rhinitis Anal fissure Anemia Anxiety Arthritis B12 deficiency Chronic pain syndrome Constipation Costochondritis Diabetes mellitus Dyslipidemia EKG abnormalities Gastroparesis GERD (gastroesophageal reflux disease) Hepatitis A Hepatitis B Hepatomegaly Hypoglycemia after GI (gastrointestinal) surgery Hypothyroidism (acquired) Insomnia Leukocytosis Lumbar degenerative disc disease Migraine Obesity (BMI 30-39.9) Occipital neuralgia of left side MIO on CPAP Proteinuria Pure hypercholesterolemia Recurrent chest pain Renal calculi Renal stones Shoulder pain, left Spondylosis of cervical spine without myelopathy 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 Upper abdominal pain Vitamin D deficiency Family History Family History Father Liver cancer Hypertension Diabetes mellitus CVD (cardiovascular disease) Liver failure Mother Hypercholesterolemia Breast cancer Asthma Depression Maternal Grandmother Diabetes mellitus Hypertension Paternal Grandmother Diabetes mellitus Hypertension Family history of problems with anesthesia: No Surgical History Surgical History H/O gastric bypass History of esophagogastroduodenoscopy (EGD) History of tubal ligation History of umbilical hernia Hx of bilateral breast reduction surgery Hx of section Hx of cholecystectomy Hx of lithotripsy History of Problems with Anesthesia: No Social History Social History Household Members: Significant Other Housing: House Alcohol intake: never Patient Tobacco Use Status: Never used Tobacco e-Cigarette/Vaping Use: Never Used Second Hand Smoke Exposure: Yes service: No Current occupational status: disabled Cognitive needs: No Hearing needs: No Vision needs: Yes Meds Allergies Allergy/AdvReac Type Severity Reaction Status Date / Time lisinopril [LISINOPRIL] Allergy Severe ANAPYHLAXIS, Verified 10/24/22 10:58 swelling metformin [METFORMIN] Allergy Severe ANAPHYLAXIS, Verified 10/24/22 10:58 diarrhea sumatriptan [From IMITREX] Allergy Severe ANAPHYLAXIS, Verified 10/24/22 10:58 sedation Home Medications Medication Instructions Recorded Confirmed Last Taken Type alprazolam 1 mg tablet 1 mg PO TID PRN Anxiety 02/10/20 11/08/22 Unknown History clonidine HCl 0.1 mg tablet 0.1 mg PO DAILY anxiety 01/02/21 11/08/22 Unknown History levonorgestrel 21 mcg/24 hours (8 1 device intrauterine ONCE 02/19/22 11/08/22 Unknown History yrs) 52 mg intrauterine device (Mirena) ipratropium bromide 42 mcg (0.06 1 spray intranasal BID 05/23/22 11/08/22 Unknown History %) nasal spray melatonin 5 mg tablet 5 - 10 mg PO BEDTIME PRN insomnia 05/23/22 10/24/22 Unknown History dexlansoprazole 60 mg 60 mg PO DAILY 09/11/22 11/08/22 Unknown History capsule,biphase delayed release dicyclomine 20 mg tablet 20 mg PO QID PRN abdominal pain 09/11/22 11/08/22 Unknown History multivitamin-ferrous 1 tab PO DAILY 09/11/22 10/24/22 Unknown History fumarate-folic acid 18 mg-400 mcg tablet (Certavite-Antioxidant) acarbose 100 mg tablet 100 mg PO TID 11/08/22 11/08/22 Unknown History Exam Airway Mallampati Class: III Neck ROM: Full Loose/Missing/Broken Teeth: Yes Assessment and Plan Assessment Anesthesia Assessment: Anesthesia Plan Discussed Final Anesthetic Review Family History of Problems with Anesthesia: No History of Problems with Anesthesia: No NPO: Yes ASA Class: III Final Preanesthetic Review: Meds/Allgs Chart Reviewed, Consent Obtained/Reviewed and Anes Risks/Benef Reviewed Patient Risk: Intermediate Procedure Risk: Intermediate Anesthetic Plan Anesthetic Plan: MAC: Disposition: Standard PACU
[2022-11-08 11:34] VITALS: BP 112/82; PULSE 73; RESP 18; TEMP 36.8; O2SAT 100; BMI 32.4
[2022-11-08 11:49] VITALS: BMI 32.4
[2022-11-08 11:54] LABS: Glucose, Whole Blood 80 mg/dL (60-115)
[2022-11-08] MEDS: Lactated Ringers 1,000 ML 100 ML IVCONT (12:02)
--- NOTE | 2022-11-08 12:43 | P.HPSUR_ITS ---
Pre-Procedural Eval Section A Date of Service: 11/08/22 Section B Chief Complaint: screening Relevant Family History (Specify if Yes): No Relevant Social History: None Present Medications: see Short Stay Collaborative assessment Medical History: Significant History (Allergic rhinitis Anal fissure Anemia Anxiety Arthritis B12 deficiency Chronic pain syndrome Constipation Costochondritis Diabetes mellitus Dyslipidemia EKG abnormalities Gastroparesis GERD (gastroesophageal reflux disease) Hepatitis A Hepatitis B Hepatomegaly Hypoglycemia after GI (gastrointestinal) History of Previous Operations: Relevant previous surgery/procedure and date(s) (H/O gastric bypass History of esophagogastroduodenoscopy (EGD) History of tubal ligation History of umbilical hernia Hx of bilateral breast reduction surgery Hx of section Hx of cholecystectomy Hx of lithotripsy) Allergies: Allergies Allergy/AdvReac Type Severity Reaction Status Date / Time lisinopril [LISINOPRIL] Allergy Severe ANAPYHLAXIS, Verified 10/24/22 10:58 swelling metformin [METFORMIN] Allergy Severe ANAPHYLAXIS, Verified 10/24/22 10:58 diarrhea sumatriptan [From IMITREX] Allergy Severe ANAPHYLAXIS, Verified 10/24/22 10:58 sedation Review of Systems Sugical H&P ROS: Negative: Constitution, Cardiovascular, Respiratory, Neurological, Psychiatric, Hem-Onc, Allergic/Immunologic, Gastrointestinal, Genitourinary, Musculoskeletal, Integumentary, Endocrine and Eyes/Ea rs/Nose/Throat Exam Surgical H&P Exam: Normal: HEENT, Normal: Heart, Normal: Lungs, Normal: Extremities, Normal: Abdomen, Normal: Skin and Normal: Neurological Plan Diagnosis/Plan: Unchanged I have reviewed the history and physical and performed a pertinent physical examination on my patient. No changes have occurred unless specified. Time Spent With Patient Time: Total time managing care of this patient today ____ minutes.
--- NOTE | 2022-11-08 12:45 | P.OP_ITS ---
Operative Note Operative Note Date of Service: 11/08/22 Narrative: Operative Information Procedure Description: Colonoscopy Indication: screening Anesthesia: MAC COLONOSCOPY Instrument: Olympus variable stiffness pediatric scope 190L Colonoscopy Monitoring: Vital signs and clinical assessment, continuous EKG monitoring, Pulse oximetry, Carbon Dioxide monitoring and blood pressure monitoring were done throughout the procedure. Colon withdrawal time was 18 minutes. Procedure: The patient was placed in the left lateral decubitis position and pre-procedure medications were administered. After a digital rectal examination of the ano-rectum, the video colonoscope was inserted into the rectum and advanced through the colon to the cecum/TI. The colonoscope was slowly withdrawn in a retrograde panoramic fashion and the colon mucosa was carefully examined including a retroflexed view of the rectum. Findings and interventions are described below. Procedure Difficulty: difficult due to redundant colon Findings: Mild melanosis coli noted Terminal Ileum-normal Cecum:normal Ascending Colon: normal Transverse Colon -normal Descending Colon:normal Sigmoid Colon: normal Rectum: Retroflexion with small internal hemorrhoids, grade I Anorectum - normal Colon preparation: [place] Bowel Preparation Scale Right colon; 1-2 Transverse colon: 2 Left colon; 1-2 (0 = Unprepared colon segment with mucosa not seen due to solid stool that cannot be cleared. 1 = Portion of mucosa of the colon segment seen, but other areas of the colon segment not well seen due to staining, residual stool and/or opaque liquid. 2 = Minor amount of residual staining, small fragments of stool and/or opaque liquid, but mucosa of colon segment seen well. 3 = Entire mucosa of colon segment seen well with no residual staining, small fragments of stool or opaque liquid) Impression and Post Procedure Diagnosis: redundant colon internal hemorrhoids melanosis coli Plan: High fiber diet leaflet Avoid straining at stool, epsom salts and sitz bath, anusol supps or cream Repeat Colonoscopy in 2-3 years due to fair or earlier if clinically indicated Above findings were reviewed with the patient and relevant handouts were provided if indicated.
[2022-11-08 13:57] VITALS: BP 90/51; PULSE 85; RESP 16; TEMP 36.4; O2SAT 98
[2022-11-08 14:16] VITALS: BP 103/66; PULSE 65; RESP 18; TEMP 36.1; O2SAT 100
== END 2022-11-08 14:45 | disposition home or self-care (01) ==
PROVIDERS: PCP Internal Medicine; Visit Provider Internal Medicine Gastroenterology
PROC: 0DJD8ZZ Inspection of Lower Intestinal Tract, Via Natural or Artificial Opening Endoscopic (ICD-10-PCS; CPT 45378; principal; 2022-11-08 13:00)
DX: Z12.11 Encounter for screening for malignant neoplasm of colon (principal); K59.04 Chronic idiopathic constipation; K63.89 Other specified diseases of intestine; K64.0 First degree hemorrhoids; K60.2 Anal fissure, unspecified; Q43.8 Other specified congenital malformations of intestine; K21.9 Gastro-esophageal reflux disease without esophagitis; D64.9 Anemia, unspecified; E78.5 Hyperlipidemia, unspecified; E11.9 Type 2 diabetes mellitus without complications; J30.9 Allergic rhinitis, unspecified; Z90.49 Acquired absence of other specified parts of digestive tract; Z87.442 Personal history of urinary calculi; Z98.84 Bariatric surgery status; Z98.890 Other specified postprocedural states; Z88.8 Allergy status to other drugs, medicaments and biological substances; Z79.899 Other long term (current) drug therapy
CPT/HCPCS: G0121; 82947

== ENCOUNTER → 2022-11-08 11:23 | Outpatient (BNV) | payer MEDICARE, MEDICAID, SELFPAY | PROVIDERS: PCP Internal Medicine; Visit Provider Internal Medicine Gastroenterology | DX: Z12.11 Encounter for screening for malignant neoplasm of colon (principal); K63.89 Other specified diseases of intestine; K64.0 First degree hemorrhoids | CPT/HCPCS: G0121 ==

== ENCOUNTER 2022-11-27 10:44 | Outpatient (REF) | payer MEDICARE, MEDICAID, SELFPAY ==
--- NOTE | ~2022-11-27 | MM_ITS ---
EXAMINATION: MM DIAGNOSTIC DIGITAL BREAST TOMOSYNTHESIS, LEFT CLINICAL INFORMATION: Six-month follow-up one view asymmetry left CC view medial aspect. No ultrasound correlate seen . Patient has history of breast reduction in 2001. COMPARISON: Mammography: 05/25/2022, 05/09/2022, 04/20/2021, 03/28/2020, and dating back to 2018. Left breast ultrasound 05/25/2022. TECHNIQUE: Digital left breast tomosynthesis is performed in both the craniocaudal and mediolateral views along with computer-aided detection (CAD). Synthesized 2D images are generated from the tomosynthesis. FINDINGS: There are scattered areas of fibroglandular density (ACR BI-RADS breast composition Category b). There are extensive bilateral vascular calcifications noted, advanced for patient age. There is redemonstration of the 1 view asymmetry in the medial left breast, CC view only, without MLO or ML correlate. On tomographic images, this has the appearance of summation artifact/superimposition artifact, likely secondary to scarring and remains probably benign. Otherwise, no suspicious developing mass, architectural distortion, or suspicious grouped calcifications identified in the left breast. No skin changes or axillary pathology seen. MM/MM tomosynthesis diagnostic LT IMPRESSION: Probably benign one view medial CC asymmetry left breast as detailed, likely superimposition artifact related to reduction mammoplasty scarring, for which six-month interval follow-up mammography is recommended when the patient is due for bilateral screening. ASSESSMENT: BI-RADS BI-RADS 3 - Probably benign finding(s) - 6 month follow-up suggested RECOMMENDATION: 6 Month F/U Results were provided to the patient at time of visit by the technologist. This patient's information was entered into a reminder system with a target due date for their next mammogram.
== END 2022-11-27 10:45 | disposition home or self-care (01) ==
LOC: HO.MAMMO 10:44
PROVIDERS: PCP Internal Medicine; Visit Provider Internal Medicine
DX: N64.89 Other specified disorders of breast (principal)
CPT/HCPCS: 77061; 77065

== ENCOUNTER → 2022-11-27 11:00 | Outpatient (BNV) | payer MEDICARE, MEDICAID, SELFPAY | PROVIDERS: PCP Internal Medicine; Visit Provider Radiology Diagnostic Radiology | DX: R92.1 Mammographic calcification found on diagnostic imaging of breast (principal) | CPT/HCPCS: 77061; 77065; G0279 ==

== ENCOUNTER 2022-11-28 12:27 | Outpatient (AMB) | payer MEDICARE, MEDICAID, SELFPAY ==
--- NOTE | 2022-11-28 12:33 | MHC.OFFVIS ---
Intake Vital Signs 11/28/22 12:41 Height 5 ft Weight 166 lb BMI 32.4 BP 119/65 Blood Pressure Location Lt brachial Position Sitting Pulse 68 Intake Visit Reasons: S/p colon-Duncan Intake Note: Patient follow up for Colonoscopy results. Patient denies any GI issues. Supervisor Tumbling And Rolling Required: No Accompanied by: Self / Same As Patient Allergies lisinopril [LISINOPRIL] Allergy (Severe, Verified 10/24/22 10:58) ANAPYHLAXIS, swelling metformin [METFORMIN] Allergy (Severe, Verified 10/24/22 10:58) ANAPHYLAXIS, diarrhea sumatriptan [From IMITREX] Allergy (Severe, Verified 10/24/22 10:58) ANAPHYLAXIS, sedation HPI S/p colon-Duncan HPI Details Assessment & Plan (1) Gastroparesis: Code(s): K31.84 - Gastroparesis Plan: [place] #declines She continues to do well on the reglan, LInzess, bisacodyl, and simethicone. BUT the o2o is not working for her, she has breakthrough GERD, [place] later in the day. Her formulary seems to cover Dexilant, so with the dual release this would be a good option. She has never had a colonoscopy. Agreeable having 1 scheduled since we start now at age 46 to prevent colon cancer. There are no prior problems with anesthesia or sedation. She denies any cardiac or respiratory problems. No ID problems. No known FHX crc or polyps. (2) GERD (gastroesophageal reflux disease): Code(s): K21.9 - Gastro-esophageal reflux disease without esophagitis Qualifiers: Esophagitis presence: without esophagitis Qualified Code(s): K21.9 - Gastro-esophageal reflux disease without esophagitis (3) Chronic idiopathic constipation: Code(s): K59.04 - Chronic idiopathic constipation (4) Pre-op examination: Code(s): Z01.818 - Encounter for other preprocedural examination Medications: New dexlansoprazole (D exilant) 60 mg PO DAILY 30 days 30 caps 6RF K21.9 - Gastro-eso phageal reflux dis ease without esoph agitis peg 3350-electroly leann 236-22.74-6.74 -5.86 gram (Golyt neelam) until feca l effluent is molly r; do not exceed a total volume of 2 ,000 mL 240 mL PO Q10M 1 day 4,000 mL 0RF Z12.11 - Encounter for screening for malignant neoplas m of colon Refilled bisacodyl 5 - 10 mg (1 - 2 x 5 mg) PO BEDTIME 30 days PRN 60 tab s 6RF constipation K59.04 - Chronic i diopathic constipa tion dicyclomine 20 mg PO QID PRN 120 tabs 6RF Abdom inal Pain linaclotide (Linze ss) 290 mcg PO DAILY 30 days 30 caps 6R F K59.04 - Chronic i diopathic constipa tion metoclopramide HCl (Reglan) 10 mg PO QIDACHS 120 tabs 6RF Nause a K31.84 - Gastropar esis simethicone aft er meals 180 mg PO QID 30 days 120 caps 6RF R14.0 - Abdominal distension (gaseou s) Discontinued omeprazole Disc ontinued Reason: Doctor's Order 40 mg PO DAILY 30 caps 6RF GERD COLONOSCOPY 11/08/22 Findings: Mild melanosis coli noted Terminal Ileum-normal Cecum:normal Ascending Colon: normal Transverse Colon -normal Descending Colon:normal Sigmoid Colon: normal Rectum: Retroflexion with small internal hemorrhoids, grade I Anorectum - normal Impression and Post Procedure Diagnosis: redundant colon internal hemorrhoids melanosis coli Plan: High fiber diet leaflet Avoid straining at stool, epsom salts and sitz bath, anusol supps or cream Repeat Colonoscopy in 2-3 years due to fair or earlier if clinically indicated TODAY'S VISIT [place] #declines She did not like the go lytely, maybe next time a pill prep will be covered. The prep was insufficient, and her colon is longer than usual so we will have to consider a 2 day prep and repeat the procedure in 3 years. The procedure was well tolerated. The results were explained and the patient is agreeable to the follow-up interval as stated. The bowel pattern has returned to normal. Education was provided to tell any 1st degree relatives about their findings to be sure that they are screened by age 45. Educated that they will be put on a recall list when it is time for their repeat scope but should they move out of state or away from the hospital they will need to remember along with their primary to repeat the procedure in a timely fashion to avoid any adverse complications. She is c/o rectal itching intermittently likely r/t hemorrhoids. Will send proctosol cream. She continues on Dexilant, LInzess 290, bisacodyl, simethicone, reglan, and dicyclomine with good control of all of her GI conditions. ROV 6 mos. PFS Medical History Hypothyroidism (acquired) Renal calculi Anemia Vitamin D deficiency Pure hypercholesterolemia Obesity (BMI 30-39.9) Costochondritis Recurrent chest pain Lumbar degenerative disc disease Migraine Allergic rhinitis Diabetes mellitus Shoulder pain, left Occipital neuralgia of left side Chronic pain syndrome Spondylosis of cervical spine without myelopathy Type 2 diabetes mellitus in remission Arthritis Upper abdominal pain EKG abnormalities Anal fissure Renal stones Gastroparesis Hepatomegaly Hepatitis B Hepatitis A Leukocytosis MIO on CPAP Insomnia Anxiety Constipation GERD (gastroesophageal reflux disease) B12 deficiency Proteinuria Type 2 diabetes mellitus with other diabetic kidney complication Dyslipidemia Hypoglycemia after GI (gastrointestinal) surgery Surgical History (Updated 11/28/22 @ 12:55 by LEONARDO Newell) H/O colonoscopy H/O gastric bypass History of tubal ligation Hx of lithotripsy History of umbilical hernia Hx of section History of esophagogastroduodenoscopy (EGD) Hx of bilateral breast reduction surgery Hx of cholecystectomy Family History Father Liver cancer Hypertension Diabetes mellitus CVD (cardiovascular disease) Liver failure Mother Hypercholesterolemia Breast cancer Asthma Depression Maternal Grandmother Diabetes mellitus Hypertension Paternal Grandmother Diabetes mellitus Hypertension Social History Household Members: Significant Other Housing: House Alcohol intake: never Patient Tobacco Use Status: Never used Tobacco e-Cigarette/Vaping Use: Never Used Second Hand Smoke Exposure: Yes service: No Current occupational status: disabled Cognitive needs: No Hearing needs: No Vision needs: Yes Female Reproductive History Menstrual Age of Menarche: 11 Review of Systems Const Denies fatigue, Denies fever(s), Denies night sweats, Denies poor appetite and Denies weight loss ENT Reports Normal hearing present, Denies dental pain, Denies dysphagia, Denies hearing loss, Denies mouth pain, Denies odynophagia, Denies throat swelling, Denies tongue swelling and Reports other (Dentition adequate) Card Reports no additional complaints Resp Reports no additional complaints GI Denies abdominal pain, Denies melena, Reports bloating, Denies hematochezia, Reports constipation, Reports GI cramping, Denies dysphagia, Denies excessive flatus, Denies early satiety, Reports heartburn, Denies diarrhea, Denies nausea, Denies odynophagia, Denies vomiting and Denies hematemesis Skin/Breast Denies pruritus, Denies lesions, Denies rash and Denies jaundice Neuro Reports Normal hearing present and Denies Abnormal speech present Endo Denies fatigue Aller/Immun Denies throat swelling and Denies tongue swelling Physical Exam Vital Signs: Last Vital Signs Pulse 68 11/28/22 12:41 BP 119/65 11/28/22 12:41 BMI result Body Mass Index 32.4 Const General: cooperative, no acute distress, well developed and well groomed Nutritional Appearance: well nourished and obese Orientation/consciousness: oriented to person, oriented to place and oriented to time Limitations: language barrier HEENT Head: Yes normocephalic and Yes atraumatic Eyes General: appearance normal, both eyes and all related structures Pupils: Equal, round and reactive pupils present Neck Neck: Yes normal visual inspection and Yes no lymphadenopathy Thyroid: Thyroid normal Resp Effort & Inspection: normal respiratory effort and able to speak in complete sentences Auscultation: clear to auscultation bilaterally Cardio Rate: regular rate Rhythm: regular rhythm Heart sounds: Normal, physiologic split S2 sound present Peripheral pulses: radial pulses present and posterior tibial pulses present GI Inspection: No distended, No Abdominal panniculus present and Yes obesity Palpation (GI): Soft to palpation, nontender, no guarding, not rigid and No hepatosplenomegaly present Percussion: Yes normal to percussion Auscultation: normal bowel sounds Rectal Exam - Female: deferred Skin General skin exam: no rashes or lesions noted, turgor normal, skin not dry, no jaundice, No spider nevi and no striae Rashes: no rashes Nails: normal Neuro General: oriented to person, oriented to place and oriented to time Cranial nerves: Yes Equal, round and reactive pupils present and Yes Normal hearing present Speech: No Abnormal speech present Extrem General: Yes normal to inspection, No clubbing, No cyanosis and No edema Psych Appearance: grossly normal and well kempt Mental Status: mental status grossly normal Speech and movement: Normal speech and movement present Affect: normal affect Attitude: cooperative Thought process: Normal thought process present and not confabulating Thought content: Normal thought content present Insight: Fair insight present (Psych) Judgement: Fair judgement present (Psych) Results Reviewed Results Reviewed: COLONOSCOPY 11/08/22 Findings: Mild melanosis coli noted Terminal Ileum-normal Cecum:normal Ascending Colon: normal Transverse Colon -normal Descending Colon:normal Sigmoid Colon: normal Rectum: Retroflexion with small internal hemorrhoids, grade I Anorectum - normal Impression and Post Procedure Diagnosis: redundant colon internal hemorrhoids melanosis coli Plan: High fiber diet leaflet Avoid straining at stool, epsom salts and sitz bath, anusol supps or cream Repeat Colonoscopy in 2-3 years due to fair or earlier if clinically indicated Assessment & Plan Assessment & Plan (1) GERD (gastroesophageal reflux disease): Code(s): K21.9 - Gastro-esophageal reflux disease without esophagitis Qualifiers: Esophagitis presence: without esophagitis Qualified Code(s): K21.9 - Gastro-esophageal reflux disease without esophagitis Plan: [place] #declines She did not like the go lytely, maybe next time a pill prep will be covered. The prep was insufficient, and her colon is longer than usual so we will have to consider a 2 day prep and repeat the procedure in 3 years. The procedure was well tolerated. The results were explained and the patient is agreeable to the follow-up interval as stated. The bowel pattern has returned to normal. Education was provided to tell any 1st degree relatives about their findings to be sure that they are screened by age 45. Educated that they will be put on a recall list when it is time for their repeat scope but should they move out of state or away from the hospital they will need to remember along with their primary to repeat the procedure in a timely fashion to avoid any adverse complications. She is c/o rectal itching intermittently likely r/t hemorrhoids. Will send proctosol cream. She continues on Dexilant, LInzess 290, bisacodyl, simethicone, reglan, and dicyclomine with good control of all of her GI conditions. ROV 6 mos. (2) Gastroparesis: Code(s): K31.84 - Gastroparesis (3) Chronic idiopathic constipation: Code(s): K59.04 - Chronic idiopathic constipation Medications: New hydrocortisone 2.5% (Proctosol HC) BE SURE TO INCLUDE RECTAL APPICATOR!! 1 appl NE BID 30 grams 6RF hemorrhoids K64.9 - Unspecified hemorrhoids dexlansoprazole 60 mg PO DAILY 30 caps 6RF Refilled metoclopramide HCl (Reglan) 10 mg PO QIDACHS 120 tabs 6RF Nausea K31.84 - Gastroparesis bisacodyl 5 - 10 mg (1 - 2 x 5 mg) PO BEDTIME 90 days 60 tabs 1RF constipation K59.04 - Chronic idiopathic constipation dicyclomine 20 mg PO QID PRN 360 tabs 2RF for abdominal pain linaclotide (Linzess) 290 mcg PO DAILY 30 days 30 caps 6RF K59.04 - Chronic idiopathic constipation simethicone after meals 180 mg PO QID 30 days 120 caps 6RF R14.0 - Abdominal distension (gaseous) Coding Level of Care Code Est Pt Level 3 (67148) Diagnoses Gastroesophageal reflux disease without esophagitis K21.9 Esophagitis presence: without esophagitis Gastroparesis K31.84 Chronic idiopathic constipation K59.04
[2022-11-28 12:41] VITALS: BP 119/65; PULSE 68; BMI 32.4
== END 2022-11-28 12:54 | disposition home or self-care (01) ==
PROVIDERS: PCP Internal Medicine; Visit Provider Nurse Practitioner
DX: K21.9 Gastro-esophageal reflux disease without esophagitis (principal); K31.84 Gastroparesis; K59.04 Chronic idiopathic constipation
CPT/HCPCS: 99213

== ENCOUNTER → 2022-11-28 12:27 | Outpatient (BNVA) | payer MEDICARE, MEDICAID, SELFPAY | PROVIDERS: PCP Internal Medicine; Visit Provider Nurse Practitioner | DX: K31.84 Gastroparesis (principal); K21.9 Gastro-esophageal reflux disease without esophagitis; K59.04 Chronic idiopathic constipation | CPT/HCPCS: 99212 ==

== ENCOUNTER 2022-12-04 08:59 | Outpatient (REF) | payer MEDICARE, MEDICAID, SELFPAY ==
[2022-12-04 15:59] LABS: CT PCR NOT DETECTED (Not Detect.); NG PCR NOT DETECTED (Not Detect.)
[2022-12-05 15:37] LABS: BV Int Neg Control Negative (Negative); BV Int Pos Control Positive (Positive)
== END 2022-12-04 09:00 | disposition home or self-care (01) ==
LOC: HO.LNP 08:59
PROVIDERS: PCP Internal Medicine; Visit Provider Obstetrics & Gynecology
DX: N76.0 Acute vaginitis (principal)
CPT/HCPCS: 0353U; 87480; 87510; 87660; 99212

== ENCOUNTER 2022-12-04 08:59 | Outpatient (AMB) | payer MEDICARE, MEDICAID, SELFPAY ==
--- NOTE | 2022-12-04 09:00 | MHC.OFFVIS ---
Intake Vital Signs 12/04/22 09:02 Height 5 ft Weight 165 lb 5.547 oz BMI 32.3 BP 100/62 Intake Visit Reasons: VAG ITCH Body Art Technician Required: Yes Body Art Technician Language: Supervisor Fireworks Assembly Name: Sylvia RICO Information Interpreted: non-clinical & clinical Cardiovascular Physician Assistant: Cardiovascular Physician Assistant Present (Sylvia RICO) Accompanied by: Self / Same As Patient Allergies lisinopril [LISINOPRIL] Allergy (Severe, Verified 12/04/22 09:03) ANAPYHLAXIS, swelling metformin [METFORMIN] Allergy (Severe, Verified 12/04/22 09:03) ANAPHYLAXIS, diarrhea sumatriptan [From IMITREX] Allergy (Severe, Verified 12/04/22 09:03) ANAPHYLAXIS, sedation Is last menstrual period known: Yes Last menstrual period: 11/03/22 HPI HPI Comments History of Present Illness Details Presenting complaining of bilateral vulvar burning and itching with no associated vaginal discharge or odor PFSH Medical History Hypothyroidism (acquired) Renal calculi Anemia Vitamin D deficiency Pure hypercholesterolemia Obesity (BMI 30-39.9) Costochondritis Recurrent chest pain Lumbar degenerative disc disease Migraine Allergic rhinitis Diabetes mellitus Shoulder pain, left Occipital neuralgia of left side Chronic pain syndrome Spondylosis of cervical spine without myelopathy Type 2 diabetes mellitus in remission Arthritis Upper abdominal pain EKG abnormalities Anal fissure Renal stones Gastroparesis Hepatomegaly Hepatitis B Hepatitis A Leukocytosis MIO on CPAP Insomnia Anxiety Constipation GERD (gastroesophageal reflux disease) B12 deficiency Proteinuria Type 2 diabetes mellitus with other diabetic kidney complication Dyslipidemia Hypoglycemia after GI (gastrointestinal) surgery Surgical History H/O colonoscopy H/O gastric bypass History of tubal ligation Hx of lithotripsy History of umbilical hernia Hx of section History of esophagogastroduodenoscopy (EGD) Hx of bilateral breast reduction surgery Hx of cholecystectomy Family History Father Liver cancer Hypertension Diabetes mellitus CVD (cardiovascular disease) Liver failure Mother Hypercholesterolemia Breast cancer Asthma Depression Maternal Grandmother Diabetes mellitus Hypertension Paternal Grandmother Diabetes mellitus Hypertension Social History Household Members: Significant Other Housing: House Alcohol intake: never Patient Tobacco Use Status: Never used Tobacco e-Cigarette/Vaping Use: Never Used Second Hand Smoke Exposure: Yes service: No Current occupational status: disabled Cognitive needs: No Hearing needs: No Vision needs: Yes Female Reproductive History Menstrual Age of Menarche: 11 Date of last menstrual period: 11/03/22 Review of Systems Const All systems reviewed & are unremarkable except as noted in HPI and below Physical Exam Vital Signs: Last Vital Signs BP 100/62 12/04/22 09:02 BMI result Body Mass Index 32.3 General: Yes no CVA tenderness External Female Exam: normal external appearance and normal appearance of the urethra Speculum Exam - Vagina: normal appearance of the vagina, normal palpation, no lesions and no masses Speculum Exam - Cervix: normal appearance of the cervix, normal palpation, no lesions, no masses and nontender Bimanual exam- vagina & uterus: normal bimanual exam, normal palpation, uterine size normal, normal palpation, uterine shape normal, No Cervical tenderness present and non-tender Bimanual Exam- Adnexa, other: normal adnexae Back/Spine/Pelvis Back: no CVA tenderness Assessment & Plan Assessment & Plan (1) Vulvovaginitis: Code(s): N76.0 - Acute vaginitis Plan: GC/CT, Bacterial Vaginosis panel taken, Terazol 0.8% q.h.s. for 3 days was sent to the patient's pharmacy. The patient was instructed to call if symptoms don't improve in 48 hours. Medications: New terconazole 0.8% 1 appful vaginal BEDTIME 20 grams 0RF 3 days clotrimazole-betamethasone 1-0.05 % 1 appl topical BID 45 grams 0RF 5 days Coding Level of Care Code Est Pt Level 3 (57940) Diagnoses Vulvovaginitis N76.0
[2022-12-04 09:02] VITALS: BP 100/62; BMI 32.3
== END 2022-12-04 09:14 | disposition home or self-care (01) ==
LOC: HO.HWS 08:59
PROVIDERS: PCP Internal Medicine; Visit Provider Obstetrics & Gynecology
DX: N76.0 Acute vaginitis (principal)
CPT/HCPCS: 99213

== ENCOUNTER 2022-12-09 08:18 | Emergency (ER) | payer MEDICARE, MEDICAID, SELFPAY ==
[2022-12-09 08:27] VITALS: BP 131/74; PULSE 76; RESP 18; TEMP 36.3; O2SAT 97; BMI 32.4
--- NOTE | 2022-12-09 09:00 | ED_ITS ---
HPI - Female Genitourinary General Chief complaint: Urogenital-Female Stated complaint: urine infection Time Seen by Provider: 12/09/22 08:35 Source: patient Mode of arrival: ambulatory Limitations: no limitations History of Present Illness HPI Narrative: Patient is a 46-year-old female with history of T2DM, hypothyroid,anemia,renal calculi, hepatitis A+B, GERD presenting to the emergency department complaint of lower abdominal pain as well as dysuria for the past 4 days. She denies any fevers. Denies any back or flank pain. Denies any abnormal vaginal discharge. Denies concern for STIs. Denies any nausea, vomiting, diarrhea, constipation. Denies any hematochezia or melena. MD elicited complaint: dysuria Onset (ago): day(s) Location of symptoms: external genitalia, suprapubic and urethra Severity: moderate Female Urogenital Radiation: Non-Radiating Quality of pain: aching Consistency: intermittent Vaginal discharge: none Vaginal bleeding: none Urinary symptoms: Dysuria Exacerbating factors: urination Relieving factors: none Associated symptoms: denies other symptoms Treatment prior to arrival: none Sexual activity: Yes Patient : No Related Data Home Medications Medication Instructions Recorded Confirmed alprazolam 1 mg tablet 1 mg PO TID PRN Anxiety 02/10/20 11/08/22 clonidine HCl 0.1 mg tablet 0.1 mg PO DAILY anxiety 01/02/21 11/08/22 levonorgestrel 21 mcg/24 hours (8 1 device intrauterine ONCE 02/19/22 11/08/22 yrs) 52 mg intrauterine device (Mirena) ipratropium bromide 42 mcg (0.06 1 spray intranasal BID 05/23/22 11/08/22 %) nasal spray melatonin 5 mg tablet 5 - 10 mg PO BEDTIME PRN insomnia 05/23/22 10/24/22 multivitamin-ferrous 1 tab PO DAILY 09/11/22 10/24/22 fumarate-folic acid 18 mg-400 mcg tablet (Certavite-Antioxidant) acarbose 100 mg tablet 100 mg PO TID 11/08/22 11/08/22 Previous Rx's Medication Instructions Recorded oxybutynin chloride 10 mg 10 mg PO DAILY OAB 30 days #90 tabs 01/08/22 tablet,extended release 24 hr peg 3350-electrolytes 236 240 ml PO Q10M 1 day #4,000 mL 02/20/22 gram-22.74 gram-6.74 gram-5.86 gram solution (Golytely) blood-glucose meter (FreeStyle #1 ea 03/15/22 Lite Meter kit) alcohol swabs (Alcohol Pads) 1 pad topical TID 30 days #100 ea 03/16/22 fluticasone propionate 50 1 spray intranasal DAILY #48 mL 03/16/22 mcg/actuation nasal spray,suspension cetirizine 10 mg tablet 10 mg PO DAILY PRN Allergy 06/22/22 Symptoms 90 days #90 tabs ibuprofen 800 mg tablet 800 mg PO TID PRN fever or pain 30 06/22/22 days #90 tabs rosuvastatin 5 mg tablet (Crestor) 5 mg PO DAILY #30 tabs 06/29/22 cyanocobalamin (vitamin B-12) 500 500 mcg sublingual .COMPLEX 30 07/03/22 mcg sublingual tablet days #20 tabs ferrous sulfate 325 mg (65 mg 325 mg PO DAILY #60 tabs 07/04/22 iron) tablet blood sugar diagnostic (FreeStyle #100 ea 08/15/22 Lite Strips) lancets 28 gauge (FreeStyle #100 ea 08/15/22 Lancets) mometasone 0.1 % topical cream 1 appl topical DAILY PRN rash #45 09/25/22 grams meloxicam 15 mg tablet 15 mg PO DAILY #30 tabs 09/29/22 levothyroxine 50 mcg tablet 50 mcg PO DAILY 90 days #90 tabs 10/24/22 topiramate 100 mg tablet 100 mg PO BEDTIME 90 days #90 tabs 10/24/22 tramadol 50 mg tablet See Rx Instructions .Route 11/20/22 .COMPLEX pain 30 days #30 tabs bisacodyl 5 mg tablet,delayed 5 - 10 mg (1 - 2 x 5 mg) PO 11/28/22 release BEDTIME constipation 90 days #60 tabs dexlansoprazole 60 mg 60 mg PO DAILY #30 caps 11/28/22 capsule,biphase delayed release dicyclomine 20 mg tablet 20 mg PO QID PRN for abdominal 11/28/22 pain #360 tabs hydrocortisone 2.5 % topical cream 1 appl [place] BID hemorrhoids #30 grams 11/28/22 with perineal applicator (Proctosol HC) linaclotide 290 mcg capsule 290 mcg PO DAILY 30 days #30 caps 11/28/22 (Linzess) metoclopramide HCl 10 mg tablet 10 mg PO QIDACHS Nausea #120 tabs 11/28/22 (Reglan) simethicone 180 mg capsule 180 mg PO QID 30 days #120 caps 11/28/22 clotrimazole-betamethasone 1 1 appl topical BID 5 days #45 grams 12/04/22 %-0.05 % topical cream terconazole 0.8 % vaginal cream 1 appful vaginal BEDTIME 3 days 12/04/22 #20 grams fluconazole 150 mg tablet 150 mg PO Q3D 2 doses #2 tabs 12/09/22 (Diflucan) Allergies Allergy/AdvReac Type Severity Reaction Status Date / Time lisinopril [LISINOPRIL] Allergy Severe ANAPYHLAXIS, Verified 12/04/22 09:03 swelling metformin [METFORMIN] Allergy Severe ANAPHYLAXIS, Verified 12/04/22 09:03 diarrhea sumatriptan [From IMITREX] Allergy Severe ANAPHYLAXIS, Verified 12/04/22 09:03 sedation Review of Systems 2 Review of Systems: As per HPI. Yes all other systems are reviewed and are negative Constitutional: Constitutional: Reports as per HPI [facility] Past Medical History Medical History Hypothyroidism (acquired) Renal calculi Anemia Vitamin D deficiency Pure hypercholesterolemia Obesity (BMI 30-39.9) Costochondritis Recurrent chest pain Lumbar degenerative disc disease Migraine Allergic rhinitis Diabetes mellitus Shoulder pain, left Occipital neuralgia of left side Chronic pain syndrome Spondylosis of cervical spine without myelopathy Type 2 diabetes mellitus in remission Arthritis Upper abdominal pain EKG abnormalities Anal fissure Renal stones Gastroparesis Hepatomegaly Hepatitis B Hepatitis A Leukocytosis MIO on CPAP Insomnia Anxiety Constipation GERD (gastroesophageal reflux disease) B12 deficiency Proteinuria Type 2 diabetes mellitus with other diabetic kidney complication Dyslipidemia Hypoglycemia after GI (gastrointestinal) surgery Surgical History H/O colonoscopy H/O gastric bypass History of tubal ligation Hx of lithotripsy History of umbilical hernia Hx of section History of esophagogastroduodenoscopy (EGD) Hx of bilateral breast reduction surgery Hx of cholecystectomy Family History Family History Father Liver cancer Hypertension Diabetes mellitus CVD (cardiovascular disease) Liver failure Mother Hypercholesterolemia Breast cancer Asthma Depression Maternal Grandmother Diabetes mellitus Hypertension Paternal Grandmother Diabetes mellitus Hypertension Social History Social History Household Members: Significant Other Housing: House Alcohol intake: never Patient Tobacco Use Status: Never used Tobacco Smoked in Last 30 Days: No e-Cigarette/Vaping Use: Never Used Second Hand Smoke Exposure: Yes Use of substances other than those prescribed or required for medical reasons: No Advance Directives: No Advance Directives Information Provided: Yes Patient : No service: No Current occupational status: disabled Cognitive needs: No Hearing needs: No Vision needs: Yes Physical Exam 2 Vital Signs: Vital Signs: Last Vital Signs Temp 98.1 F 12/09/22 09:09 Pulse 66 12/09/22 09:09 Resp 18 12/09/22 09:09 BP 122/68 12/09/22 09:09 Pulse Ox 99 12/09/22 09:09 O2 Del Method Room Air 12/09/22 09:09 BMI result Body Mass Index 32.4 Vital signs have been reviewed and appear to be correct. Blood pressure normal. Heart rate normal. Respiratory rate normal. Temperature normal. Oxygen saturation normal. Const: General: cooperative, healthy appearing and no acute distress O rientation/consciousness: oriented to person, oriented to place, oriented to time and patient oriented x3 Limitations: no limitations HEENT: Head: Yes normocephalic and Yes atraumatic Ears: external ears normal General nose exam: Normal external nose present Face and sinus: Yes face symmetric Mouth: oropharynx normal and moist mucous membranes Throat: Yes uvula midline Eyes: Pupils: Equal, round and reactive pupils present Neck: Neck: Yes normal visual inspection and Yes supple Resp: Effort & Inspection: normal respiratory effort and able to speak in complete sentences Auscultation: clear to auscultation bilaterally Cardio: Rate: regular rate Rhythm: regular rhythm Heart sounds: S1 normal heart sound present and S2 normal heart sound present GI: Palpation (GI): Soft to palpation and nontender Auscultation: n ormoactive bowel sounds : Other: Pelvic exam chaperoned by LETI Tucker. General: Yes no CVA tenderness External Female Exam: normal appearance of the urethra, erythema and externally tender Speculum Exam - Vagina: normal appearance of the vagina, normal vaginal discharge and tenderness bilaterally Speculum Exam - Cervix: normal appearance of the cervix, Cervical os closed and nontender Bimanual exam- vagina & uterus: No Cervical tenderness present Back/Spine/Pelvis: Back: no CVA tenderness Skin: General skin exam: elasticity normal and turgor normal Neuro: General: oriented to person, oriented to place, oriented to time, patient oriented x3, moves all extremities, no focal motor deficits and CN's II- XI intact bilaterally Cranial nerves: Yes Equal, round and reactive pupils present Cognition (Neuro): normal cognition Extrem: General: Yes full ROM, Yes no pedal edema and Yes no calf tenderness Psych: Mental Status: mental status grossly normal Affect: normal affect Thought process: Normal thought process present Medical Decision Making Medical Decision Making [facility] Narrative: Patient is a 46-year-old female with history of T2DM, hypothyroid,anemia,renal calculi, hepatitis A+B, GERD presenting to the emergency department complaint of lower abdominal pain as well as dysuria for the past 4 days. On exam patient is awake, A+Ox3, VS WNL, afebrile, normal neurological exam without focal deficits, physical exam findings as above. Given reported symptoms and physical exam findings, initial differential includes UTI/pyelonephritis, vulvovaginal candidiasis, STI. Low suspicion for appendicitis, diverticulitis Labs notable for no leukocytosis, no electrolyte abnormalities, negative HCG. No evidence of infection on UA. Results discussed with patient and patient is agreeable to pelvic exam. Normal vaginal discharge noted on pelvic exam with external erythema and mild tenderness consistent with vulvovaginal candidiasis. Review of patient's EMR shows that she saw her [employer], Dr. Antonio, on 12/04 and was treated for vulvovaginal candidiasis. States she used medications (terconazole and clotrimazole) prescribed without any improvement in symptoms. Will treat with oral diflucan and refer patient to follow up with Dr. Antonio. Discussed with patient that she will be contacted regarding any positive results that are not yet resulted. Return precautions discussed at bedside. Patient and verbalized understanding of and agreement with plan. Differential Diagnosis Differential Diagnoses: The differential diagnosis associated with the presentation includes As per [facility]. Lab Data [facility] Lab Attestation statement: I reviewed the patient's lab results. As per MDM. 12/09/22 09:23 12/09/22 09:23 Labs: Lab Results 12/09/22 12/09/22 Range/Units 09: 09:24 WBC 9.8 (4.8-10.8) X10*3/uL RBC 4.27 (4.20-5.50) X10*6/uL Hgb 11.8 L (12.0-16.0) g/dl Hct 37.2 (37.0-47.0) % MCV 87.1 (80.0-98.0) fL MCH 27.6 (27.0-33.0) pg MCHC 31.7 (31.0-35.0) g/dl RDW 13.8 (11.0-16.0) % Plt Count 297 (160-400) X10*3/uL MPV 10.7 (9.4-12.3) fL Immature Gran % (Auto) 0.5 H (0.0-0.4) % Neut % (Auto) 65.6 (45-73) % Lymph % (Auto) 22.8 (20-40) % Sunflower % (Auto) 9.6 (2-11) % Eos % (Auto) 0.7 (0-4) % Baso % (Auto) 0.8 (0-2) % Lymph # (Auto) 2.2 (1.2-4.9) X10*3/uL Sunflower # (Auto) 0.9 (0.1-1.2) X10*3/uL Eos # (Auto) 0.1 (0.0-0.4) X10*3/uL Baso # (Auto) 0.1 (0.0-0.2) X10*3/uL Abs Immat Gran (auto) 0.05 H (0.00-0.03) X10*3/uL Absolute Neuts (auto) 6.5 (2.0-8.3) x10*3/uL Absolute Nucleated RBC 0.000 (0.0-0.012) X10*3/uL Nucleated RBC % (auto) 0.0 (0.0-0.2) /100WBC Sodium 138 (135-145) mmol/L Potassium 3.9 (3.3-5.1) mmol/L Chloride 108 (96-108) mmol/L Carbon Dioxide 20 L (22-29) mmol/L Anion Gap 14 (12-20) BUN 16 (9-16) mg/dL Creatinine 0.84 (0.5-1.4) mg/dL Estim Creat Clear Calc 76.6 Estimated GFR > 60 Random Glucose 89 (60-115) mg/dL Calcium 9.4 (8.4-10.2) mg/dL Total Bilirubin 0.4 (0.0-1.0) mg/dL AST 19 (5-31) U/L ALT 13 (0-31) U/L Alkaline Phosphatase 57 (39-117) U/L Total Protein 7.8 (6.5-8.0) g/dL Albumin 4.2 (3.5-5.0) g/dL Beta HCG, Quant < 2 mIU/mL Urine Color Yellow Urine Appearance Clear Urine pH 7.0 (5.0-9.0) Ur Specific [place] <= 1.005 (1.005-1.025) Urine Protein Negative (Neg-Trace) mg/dL Urine Glucose (UA) Negative (Negative) mg/dL Urine Ketones Negative (Negative) mg/dL Urine Blood Negative (Negative) Urine Nitrite Negative (Negative) Ur Leukocyte Esterase Negative (Negative) Independent Historian Clinical information obtained from an independent historian. History obtained from or confirmed by: Spouse External Record Review External record reviewed: Inpatient record, Office record and Outpatient record Prescription Management I considered prescription management with: Other Discharge Plan Discharge Clinical Impression: Vulvovaginitis Patient Disposition: Home, Self-Care Instructions: Vaginal Discharge (ED) Additional Instructions: You were evaluated in the emergency department today for vaginal discomfort. Your urinalysis did not show evidence of a urinary tract infection. You are being prescribed Diflucan which is an oral medication for a vaginal yeast infection. Please follow-up with Dr. Antonio for any ongoing symptoms. If any of your tests which were not resulted today come back positive, you will be contacted. Return to the emergency department if you develop worsening pain, persistent vomiting, fever 100.4? F or greater, or any other concerning symptoms. Prescriptions: New fluconazole [Diflucan] 150 mg tablet 150 mg PO Q3D Qty: 2 0RF Rx Instructions: may repeat second dose 72 hrs after first dose if symptoms persist No Action (DME) blood-glucose meter [FreeStyle Lite Meter] Kit See Rx Instructions .ROUTE .MEDSUPPLY Qty: 1 0RF Rx Instructions: As directed once a day rosuvastatin [Crestor] 5 mg tablet 5 mg PO DAILY Qty: 30 12RF cyanocobalamin (vitamin B-12) 500 mcg tablet, sublingual 500 mcg sublingual .COMPLEX 30 Days Qty: 20 11RF Rx Instructions: 500 mcg sublingual daily, saturday - saturday; (DME) FreeStyle Lite Strips Strip See Rx Instructions .ROUTE .MEDSUPPLY Qty: 100 12RF Rx Instructions: test blood sugar once a day as instructed - frequent low blood sugar readings (DME) lancets [FreeStyle Lancets] 28 gauge misc See Rx Instructions .ROUTE .MEDSUPPLY Qty: 100 12RF Rx Instructions: test blood sugar once as instructed - frequent LOW blood sugar readings mometasone 0.1 % cream 1 appl topical DAILY PRN (Reason: rash) Qty: 45 1RF meloxicam 15 mg tablet 15 mg PO DAILY Qty: 30 0RF tramadol 50 mg tablet See Rx Instructions .ROUTE .COMPLEX 30 Days Qty: 30 0RF Rx Instructions: 1 tablet 1 to 2 times a day orally ONLY NEEDED for SEVERE PAIN; ferrous sulfate 325 mg (65 mg iron) Tablet 325 mg PO DAILY Qty: 60 2RF Certavite-Antioxidant 18-400 mg-mcg Tablet 1 tab PO DAILY acarbose 100 mg tablet 100 mg PO TID Rx Instructions: 1/2 tab breakfast, 1 tab lunch and dinner, 1/2 tab for hs snack PO 4 times a day; alprazolam 1 mg tablet 1 mg PO TID PRN (Reason: Anxiety) alcohol swabs [Alcohol Pads] Pads, Medicated 1 pad topical TID 30 Days Qty: 100 12RF fluticasone propionate 50 mcg/actuation spray,suspension 1 spray intranasal DAILY Qty: 48 1RF cetirizine 10 mg tablet 10 mg PO DAILY PRN (Reason: Allergy Symptoms) 90 Days Qty: 90 1RF ibuprofen 800 mg tablet 800 mg PO TID PRN (Reason: fever or pain) 30 Days Qty: 90 3RF Rx Instructions: TAKE WITH FOOD levothyroxine 50 mcg tablet 50 mcg PO DAILY 90 Days Qty: 90 1RF topiramate 100 mg tablet 100 mg PO BEDTIME 90 Days Qty: 90 1RF clonidine HCl 0.1 mg tablet 0.1 mg PO DAILY oxybutynin chloride 10 mg tablet extended release 24hr 10 mg PO DAILY 30 Days Qty: 90 3RF Mirena 20 mcg/24 hours (8 yrs) 52 mg intrauterine device 1 device intrauterine ONCE Qty: 1 0RF Mirena 20 mcg/24 hours (8 yrs) 52 mg intrauterine device 1 device intrauterine ONCE melatonin 5 mg tablet 5 - 10 mg PO BEDTIME PRN (Reason: insomnia) ipratropium bromide 42 mcg (0.06 %) spray,non-aerosol 1 spray intranasal BID peg 3350-electrolytes [Golytely] 236-22.74-6.74 -5.86 gram recon soln 240 ml PO Q10M 1 Days Qty: 4000 0RF Rx Instructions: until fecal effluent is clear; do not exceed a total volume of 2,000 mL hydrocortisone [Proctosol HC] 2.5 % cream with perineal applicator 1 appl [place] BID Qty: 30 6RF Rx Instructions: BE SURE TO INCLUDE RECTAL APPICATOR!! dexlansoprazole 60 mg capsule,biphase delayed releas 60 mg PO DAILY Qty: 30 6RF dicyclomine 20 mg tablet 20 mg PO QID PRN (Reason: for abdominal pain) Qty: 360 2RF Linzess 290 mcg capsule 290 mcg PO DAILY 30 Days Qty: 30 6RF metoclopramide HCl [Reglan] 10 mg tablet 10 mg PO QIDACHS Qty: 120 6RF simethicone 180 mg capsule 180 mg PO QID 30 Days Qty: 120 6RF Rx Instructions: after meals bisacodyl 5 mg tablet,delayed release (DR/EC) 5 - 10 mg PO BEDTIME 90 Days Qty: 60 1RF terconazole 0.8 % cream 1 appful vaginal BEDTIME 3 Days Qty: 20 0RF clotrimazole-betamethasone 1-0.05 % cream 1 appl topical BID 5 Days Qty: 45 0RF Referrals: Rupert Antonio MD [Physician] -
[2022-12-09 09:09] VITALS: BP 122/68; PULSE 66; RESP 18; TEMP 36.7; O2SAT 99
[2022-12-09 09:28] LABS: MANUAL DIFF FLAG NO
[2022-12-09 09:30] LABS: Appearance Urine Clear; Color Urine Yellow; Glucose Urine UA Negative (Negative); Leukocyte Esterase Urine Negative (Negative); Nitrite Urine Negative (Negative); Specific Gravity - Urine <= 1.005 (1.005-1.025); Urine Blood Negative (Negative); Urine Ketones Negative (Negative); Urine Protein Negative (Neg-Trace)
[2022-12-09 09:38] LABS: Basophils Absolute Auto 0.1 X10*3/uL (0.0-0.2); Basophils Percent Auto 0.8 % (0-2); Eosinophils Absolute Auto 0.1 X10*3/uL (0.0-0.4); Eosinophils Percent Auto 0.7 % (0-4); Hematocrit 37.2 % (37.0-47.0); Hemoglobin 11.8 g/dl (12.0-16.0); Imm Gran Abs Auto 0.05 X10*3/uL (0.00-0.03); Imm Gran Pct Auto 0.5 % (0.0-0.4); Lymphocytes Absolute Auto 2.2 X10*3/uL (1.2-4.9); Lymphocytes Percent Auto 22.8 % (20-40); Mean Corpuscular HGB Conc 31.7 g/dl (31.0-35.0); Mean Corpuscular Hemoglobin 27.6 pg (27.0-33.0); Mean Corpuscular Volume 87.1 fL (80.0-98.0); Mean Platelet Volume 10.7 fL (9.4-12.3); Monocytes Absolute Auto 0.9 X10*3/uL (0.1-1.2); Monocytes Percent Auto 9.6 % (2-11); Neutrophils Absolute Auto 6.5 x10*3/uL (2.0-8.3); Neutrophils Percent Auto 65.6 % (45-73); Platelet Count 297 X10*3/uL (160-400); Red Blood Count 4.27 X10*6/uL (4.20-5.50); Red Cell Distribution Width 13.8 % (11.0-16.0); White Blood Count 9.8 X10*3/uL (4.8-10.8)
[2022-12-09 09:48] LABS: Alanine Aminotransferase 13 U/L (0-31); Albumin Level 4.2 g/dL (3.5-5.0); Alkaline Phosphatase 57 U/L (39-117); Anion Gap 14 (12-20); Aspartate Amino Transferase 19 U/L (5-31); Bilirubin Total 0.4 mg/dL (0.0-1.0); Blood Urea Nitrogen 16 mg/dL (9-16); Calcium 9.4 mg/dL (8.4-10.2); Carbon Dioxide 20 mmol/L (22-29); Chloride 108 mmol/L (96-108); Creatinine Clr Calc Pharmacy 76.6; Estimated Glomerular Filt Rate > 60; Glucose Random 89 mg/dL (60-115); Potassium 3.9 mmol/L (3.3-5.1); Sodium 138 mmol/L (135-145); Total Protein 7.8 g/dL (6.5-8.0)
[2022-12-09 09:53] LABS: HCG Quantitative < 2 mIU/mL
--- NOTE | 2022-12-09 11:37 | PC.NURSE ---
pt a&o x4, pleasant, calm, and cooperative. visitor in room at bedside. pelvic exam completed and specimens sent to lab. pt tolerated well. currently resting quietly on stretcher in no apparent distress. awaiting results. rr even/unlabored. call morgan within reach. plan of care ongoing.
[2022-12-09 15:05] LABS: CT PCR NOT DETECTED (Not Detect.); NG PCR NOT DETECTED (Not Detect.)
[2022-12-10 13:58] LABS: BV Int Neg Control Negative (Negative)
[2022-12-10 13:59] LABS: BV Int Pos Control Positive (Positive)
== END 2022-12-09 13:21 | disposition home or self-care (01) ==
PROVIDERS: Registered Nurse Emergency; Emergency Provider Emergency Medicine; PCP Internal Medicine
DX: N76.0 Acute vaginitis (principal); N39.0 Urinary tract infection, site not specified; R30.0 Dysuria; Z79.899 Other long term (current) drug therapy
CPT/HCPCS: 0353U; 36415; 80053; 81003; 84702; 85025; 87480; 87510; 87660; 99284

== ENCOUNTER 2022-12-20 11:32 | Outpatient (REF) | payer MEDICARE, MEDICAID, SELFPAY | END 2022-12-20 11:33 | disposition home or self-care (01) | LOC: HO.US 11:32 | PROVIDERS: PCP Internal Medicine; Visit Provider Urology | DX: N32.81 Overactive bladder (principal); Z87.442 Personal history of urinary calculi | CPT/HCPCS: 76775 ==

== ENCOUNTER 2022-12-31 10:23 | Emergency (ER) | payer MEDICARE, MEDICAID, SELFPAY ==
--- NOTE | ~2022-12-31 | XR_ITS ---
EXAMINATION: XR HAND, LEFT CLINICAL INFORMATION: Cut on glass, rule out foreign body. COMPARISON: None available. TECHNIQUE: PA, lateral, and oblique views of the left hand. FINDINGS: Soft tissue swelling medially along the fifth metacarpal. No soft tissue gas or radiopaque foreign body. No fracture. XR/XR hand LT min 3V IMPRESSION: Swelling along the fifth metacarpal. No radiopaque foreign body.
[2022-12-31 10:34] VITALS: BP 113/76; PULSE 80; RESP 20; TEMP 36.5; O2SAT 98; BMI 32.6
--- NOTE | 2022-12-31 11:43 | ED_ITS ---
HPI - Wound/Laceration General Chief Complaint: Wound/Laceration Stated Complaint: fall l hand laceration Time Seen by Provider: 12/31/22 11:42 Source: patient, family, RN notes reviewed and old records reviewed Mode of arrival: ambulatory History of Present Illness HPI narrative: 47-year-old female with a past medical history of hypothyroid, anemia, HLD, migraines, diabetes, arthritis, hepatitis, MIO on CPAP, presenting to the ED complaining of laceration to left hand s/p mechanical trip and fall outside of [employer]. Reports tripped and fell hand landing on glass. Tetanus unknown. Denies symptoms prior to fall including lightheadedness/dizziness, CP/SOB. Denies head strike or LOC. Reports associated paresthesias. Onset (ago): day(s) Related Data Home Medications Medication Instructions Recorded Confirmed alprazolam 1 mg tablet 1 mg PO TID PRN Anxiety 02/10/20 11/08/22 clonidine HCl 0.1 mg tablet 0.1 mg PO DAILY anxiety 01/02/21 11/08/22 levonorgestrel 21 mcg/24 hours (8 1 device intrauterine ONCE 02/19/22 11/08/22 yrs) 52 mg intrauterine device (Mirena) ipratropium bromide 42 mcg (0.06 1 spray intranasal BID 05/23/22 11/08/22 %) nasal spray melatonin 5 mg tablet 5 - 10 mg PO BEDTIME PRN insomnia 05/23/22 10/24/22 multivitamin-ferrous 1 tab PO DAILY 09/11/22 10/24/22 fumarate-folic acid 18 mg-400 mcg tablet (Certavite-Antioxidant) acarbose 100 mg tablet 100 mg PO TID 11/08/22 11/08/22 Previous Rx's Medication Instructions Recorded peg 3350-electrolytes 236 240 ml PO Q10M 1 day #4,000 mL 02/20/22 gram-22.74 gram-6.74 gram-5.86 gram solution (Aminaytely) blood-glucose meter (FreeStyle #1 ea 03/15/22 Lite Meter kit) alcohol swabs (Alcohol Pads) 1 pad topical TID 30 days #100 ea 03/16/22 ibuprofen 800 mg tablet 800 mg PO TID PRN fever or pain 30 06/22/22 days #90 tabs rosuvastatin 5 mg tablet (Crestor) 5 mg PO DAILY #30 tabs 06/29/22 cyanocobalamin (vitamin B-12) 500 500 mcg sublingual .COMPLEX 30 07/03/22 mcg sublingual tablet days #20 tabs ferrous sulfate 325 mg (65 mg 325 mg PO DAILY #60 tabs 07/04/22 iron) tablet blood sugar diagnostic (FreeStyle #100 ea 08/15/22 Lite Strips) lancets 28 gauge (FreeStyle #100 ea 08/15/22 Lancets) mometasone 0.1 % topical cream 1 appl topical DAILY PRN rash #45 09/25/22 grams topiramate 100 mg tablet 100 mg PO BEDTIME 90 days #90 tabs 10/24/22 bisacodyl 5 mg tablet,delayed 5 - 10 mg (1 - 2 x 5 mg) PO 11/28/22 release BEDTIME constipation 90 days #60 tabs dexlansoprazole 60 mg 60 mg PO DAILY #30 caps 11/28/22 capsule,biphase delayed release dicyclomine 20 mg tablet 20 mg PO QID PRN for abdominal 11/28/22 pain #360 tabs hydrocortisone 2.5 % topical cream 1 appl FL BID hemorrhoids #30 grams 11/28/22 with perineal applicator (Proctosol HC) linaclotide 290 mcg capsule 290 mcg PO DAILY 30 days #30 caps 11/28/22 (Linzess) metoclopramide HCl 10 mg tablet 10 mg PO QIDACHS Nausea #120 tabs 11/28/22 (Reglan) simethicone 180 mg capsule 180 mg PO QID 30 days #120 caps 11/28/22 clotrimazole-betamethasone 1 1 appl topical BID 5 days #45 grams 12/04/22 %-0.05 % topical cream terconazole 0.8 % vaginal cream 1 appful vaginal BEDTIME 3 days 12/04/22 #20 grams fluconazole 150 mg tablet 150 mg PO Q3D 2 doses #2 tabs 12/09/22 (Diflucan) tramadol 50 mg tablet See Rx Instructions .Route 12/19/22 .COMPLEX pain 30 days #30 tabs cetirizine 10 mg tablet 10 mg PO DAILY PRN Allergy 12/21/22 Symptoms 90 days #90 tabs fluticasone propionate 50 1 spray intranasal DAILY #48 mL 12/21/22 mcg/actuation nasal spray,suspension levothyroxine 50 mcg tablet 50 mcg PO DAILY 90 days #90 tabs 12/21/22 meloxicam 15 mg tablet 15 mg PO DAILY #30 tabs 12/21/22 oxybutynin chloride 10 mg 10 mg PO DAILY #90 tabs 12/25/22 tablet,extended release 24 hr Allergies Allergy/AdvReac Type Severity Reaction Status Date / Time lisinopril [LISINOPRIL] Allergy Severe ANAPYHLAXIS, Verified 12/04/22 09:03 swelling metformin [METFORMIN] Allergy Severe ANAPHYLAXIS, Verified 12/04/22 09:03 diarrhea sumatriptan [From IMITREX] Allergy Severe ANAPHYLAXIS, Verified 12/04/22 09:03 sedation Review of Systems 2 Review of Systems: Constitutional: No Fever, No Chills ENT/Mouth: No Ear Pain, No Nasal Congestion, No sore throat, No Rhinorrhea, No Swallowing Difficulty Cardiovascular: No Chest Pain, No SOB Respiratory: No Cough Gastrointestinal: No Nausea, No Vomiting, No Abdominal pain Musculoskeletal: + joint pain, No Myalgias, No Joint Swelling Skin: +lacerations, No rash Neuro: No Weakness, No Numbness, No Paresthesias Yes all other systems are reviewed and are negative Constitutional: Constitutional: Reports as per HPI Neurologic: Denies Sensory deficit (Neuro) [facility], [facility] Past Medical History Attestation statement: The following information was validated with the patient. Source: old records reviewed Medical History Hypothyroidism (acquired) Renal calculi Anemia Vitamin D deficiency Pure hypercholesterolemia Obesity (BMI 30-39.9) Costochondritis Recurrent chest pain Lumbar degenerative disc disease Migraine Allergic rhinitis Diabetes mellitus Shoulder pain, left Occipital neuralgia of left side Chronic pain syndrome Spondylosis of cervical spine without myelopathy Type 2 diabetes mellitus in remission Arthritis Upper abdominal pain EKG abnormalities Anal fissure Renal stones Gastroparesis Hepatomegaly Hepatitis B Hepatitis A Leukocytosis MIO on CPAP Insomnia Anxiety Constipation GERD (gastroesophageal reflux disease) B12 deficiency Proteinuria Type 2 diabetes mellitus with other diabetic kidney complication Dyslipidemia Hypoglycemia after GI (gastrointestinal) surgery Surgical History H/O colonoscopy H/O gastric bypass History of tubal ligation Hx of lithotripsy History of umbilical hernia Hx of section History of esophagogastroduodenoscopy (EGD) Hx of bilateral breast reduction surgery Hx of cholecystectomy Family History Family History Father Liver cancer Hypertension Diabetes mellitus CVD (cardiovascular disease) Liver failure Mother Hypercholesterolemia Breast cancer Asthma Depression Maternal Grandmother Diabetes mellitus Hypertension Paternal Grandmother Diabetes mellitus Hypertension Social History Social History Household Members: Significant Other Housing: House Alcohol intake: never Patient Tobacco Use Status: Never used Tobacco e-Cigarette/Vaping Use: Never Used Second Hand Smoke Exposure: Yes Advance Directives: No service: No Current occupational status: disabled Cognitive needs: No Hearing needs: No Vision needs: Yes Physical Exam Vital Signs: Vital Signs: Last Vital Signs Temp 97.7 F 12/31/22 10:34 Pulse 80 12/31/22 10:34 Resp 20 12/31/22 10:34 BP 113/76 12/31/22 10:34 Pulse Ox 98 12/31/22 10:34 O2 Del Method Room Air 12/31/22 10:34 BMI result Body Mass Index 32.6 Const: General: cooperative, healthy appearing and no acute distress Orientation/consciousness: patient oriented x3 Limitations: no limitations HEENT: Head: Yes normal to inspection and Yes atraumatic Ears: hearing grossly normal bilaterally General nose exam: Normal external nose present Face and sinus: Yes normal facial exam Eyes: General: appearance normal, both eyes and all related structures EOM: EOMs intact bilaterally Neck: Neck: Yes normal visual inspection and Yes no meningeal signs Resp: Effort & Inspection: normal respiratory effort and no respiratory distress Cardio: Rate: regular rate Peripheral pulses: radial pulses present and ulnar radial pulses present Skin: Other: +1.5cm superficial laceration noted to l eft hand 5th metacarpal, volar aspect. Underlying structures appear intact. No active bleeding. Small 4mm laceration to left 5th proximal phalanx medial aspect Full range of motion to all digits intact. Neurovascularly intact Rashes: no rashes Neuro: General: patient oriented x3, tone normal and no meningeal signs Cranial nerves: Yes CN's II-XII intact bilaterally Gait exam (Neuro): Normal gait present Sensory Exam: No Sensory deficit (Neuro) Extrem: General: Yes normal to inspection Course Course Course Narrative: XR hand LT min 3V IMPRESSION: Swelling along the fifth metacarpal. No radiopaque foreign body. Results discussed with patient including worrisome signs and symptoms and strict return precautions, and when to return to the emergency department. They verbalized understanding and feel safe for discharge at this time. Medications Administered Discontinued Medications Generic Name Dose Route Start Last Admin Trade Name Freq PRN Reason Stop Dose Admin Diphtheria/Tetanus/Acell Pertussis 0.5 ml 12/31/22 12:05 12/31/22 12:15 Diphth,Pertus(Acell),Tet Adult 0.5 Ml Syringe IM 12/31/22 12:06 0.5 ml .ONCE ONE Administration Lidocaine HCl 5 ml 12/31/22 12:07 12/31/22 12:15 Lidocaine Hcl 1 % Mpf 5 Ml Vial INFILTRATI 12/31/22 12:08 5 ml ONCE ONE Administration Medical Decision Making Medical Decision Making MDM Narrative: 47-year-old female with a past medical history of hypothyroid, anemia, HLD, migraines, diabetes, arthritis, hepatitis, MIO on CPAP, presenting to the ED complaining of laceration to left hand s/p mechanical trip and fall outside of [employer]. On exam vital signs stable, NAD, nontoxic appearing physical exam as noted above with superficial laceration noted to left hand. Will need suture repair. Low suspicion for nerve/tendon or ligamental injury. Rule out retained foreign body Plan: X-ray, update tetanus, repair wound Please refer to course for remaining clinical decision making, interpretation of labs/imaging results, and discussions with consultants and/or family members. Differential Diagnosis Differential Diagnoses: The differential diagnosis associated with the presentation includes As above Independent Interpretation I performed an independent interpretation of an: Plain X-Ray External Record Review External record reviewed: Inpatient record, Office record, Outpatient record, Prior outpatient labs, Prior outpatient radiology, Primary care record and Outside ED record Tests considered The following testing was considered but not selected: As above Prescription Management I considered prescription management with: Antibiotic Procedures Laceration Laceration 1: Site: hand Side (If applicable): left Size (cm): 1.5 Description: linear Depth: simple, single layer Local Anesthetic: lidocaine 1% Amount of anesthesia used (mL): 1.5 Pre-repair: wound explored Size (cm): 5-0 Number of sutures: 3 Technique: simple, interrupted Laceration 2: Site: hand Side (If applicable): left Size (cm): 0.4 Description: linear Depth: simple, single layer Amount of anesthesia used (mL): 0 Pre-repair: wound explored Skin layer closed with: nylon Size (cm): 5-0 Number of sutures: 1 Technique: simple, interrupted Discharge Plan Discharge Clinical Impression: Hand laceration Patient Disposition: Home, Self-Care Instructions: Laceration (DC) Additional Instructions: Your wounds were repaired today in the emergency department. Keep dry and clean. You need to return to any emergency department, urgent care, or your PCPs office in 7-10 days for suture removal Apply bacitracin and or Neosporin daily Once sutures are removed apply anti scar cream like Mederma If area begins look infected, is red, there is drainage, streaking, or you have fever please return to the emergency department Prescriptions: No Action (DME) blood-glucose meter [FreeStyle Lite Meter] Kit See Rx Instructions .ROUTE .MEDSUPPLY Qty: 1 0RF Rx Instructions: As directed once a day rosuvastatin [Crestor] 5 mg tablet 5 mg PO DAILY Qty: 30 12RF cyanocobalamin (vitamin B-12) 500 mcg tablet, sublingual 500 mcg sublingual .COMPLEX 30 Days Qty: 20 11RF Rx Instructions: 500 mcg sublingual daily, saturday - saturday; (DME) FreeStyle Lite Strips Strip See Rx Instructions .ROUTE .MEDSUPPLY Qty: 100 12RF Rx Instructions: test blood sugar once a day as instructed - frequent low blood sugar readings (DME) lancets [FreeStyle Lancets] 28 gauge misc See Rx Instructions .ROUTE .MEDSUPPLY Qty: 100 12RF Rx Instructions: test blood sugar once as instructed - frequent LOW blood sugar readings mometasone 0.1 % cream 1 appl topical DAILY PRN (Reason: rash) Qty: 45 1RF tramadol 50 mg tablet See Rx Instructions .ROUTE .COMPLEX 30 Days Qty: 30 0RF Rx Instructions: 1 tablet 1 to 2 times a day orally ONLY NEEDED for SEVERE PAIN; meloxicam 15 mg tablet 15 mg PO DAILY Qty: 30 0RF cetirizine 10 mg tablet 10 mg PO DAILY PRN (Reason: Allergy Symptoms) 90 Days Qty: 90 1RF fluticasone propionate 50 mcg/actuation spray,suspension 1 spray intranasal DAILY Qty: 48 1RF levothyroxine 50 mcg tablet 50 mcg PO DAILY 90 Days Qty: 90 1RF oxybutynin chloride 10 mg tablet extended release 24hr 10 mg PO DAILY Qty: 90 3RF ferrous sulfate 325 mg (65 mg iron) Tablet 325 mg PO DAILY Qty: 60 2RF Certavite-Antioxidant 18-400 mg-mcg Tablet 1 tab PO DAILY acarbose 100 mg tablet 100 mg PO TID Rx Instructions: 1/2 tab breakfast, 1 tab lunch and dinner, 1/2 tab for hs snack PO 4 times a day; fluconazole [Diflucan] 150 mg tablet 150 mg PO Q3D Qty: 2 0RF Rx Instructions: may repeat second dose 72 hrs after first dose if symptoms persist alprazolam 1 mg tablet 1 mg PO TID PRN (Reason: Anxiety) alcohol swabs [Alcohol Pads] Pads, Medicated 1 pad topical TID 30 Days Qty: 100 12RF ibuprofen 800 mg tablet 800 mg PO TID PRN (Reason: fever or pain) 30 Days Qty: 90 3RF Rx Instructions: TAKE WITH FOOD topiramate 100 mg tablet 100 mg PO BEDTIME 90 Days Qty: 90 1RF clonidine HCl 0.1 mg tablet 0.1 mg PO DAILY Mirena 20 mcg/24 hours (8 yrs) 52 mg intrauterine device 1 device intrauterine ONCE Qty: 1 0RF Mirena 20 mcg/24 hours (8 yrs) 52 mg intrauterine device 1 device intrauterine ONCE melatonin 5 mg tablet 5 - 10 mg PO BEDTIME PRN (Reason: insomnia) ipratropium bromide 42 mcg (0.06 %) spray,non-aerosol 1 spray intranasal BID peg 3350-electrolytes [Golytely] 236-22.74-6.74 -5.86 gram recon soln 240 ml PO Q10M 1 Days Qty: 4000 0RF Rx Instructions: until fecal effluent is clear; do not exceed a total volume of 2,000 mL hydrocortisone [Proctosol HC] 2.5 % cream with perineal applicator 1 appl FL BID Qty: 30 6RF Rx Instructions: BE SURE TO INCLUDE RECTAL APPICATOR!! dexlansoprazole 60 mg capsule,biphase delayed releas 60 mg PO DAILY Qty: 30 6RF dicyclomine 20 mg tablet 20 mg PO QID PRN (Reason: for abdominal pain) Qty: 360 2RF Linzess 290 mcg capsule 290 mcg PO DAILY 30 Days Qty: 30 6RF metoclopramide HCl [Reglan] 10 mg tablet 10 mg PO QIDACHS Qty: 120 6RF simethicone 180 mg capsule 180 mg PO QID 30 Days Qty: 120 6RF Rx Instructions: after meals bisacodyl 5 mg tablet,delayed release (DR/EC) 5 - 10 mg PO BEDTIME 90 Days Qty: 60 1RF terconazole 0.8 % cream 1 appful vaginal BEDTIME 3 Days Qty: 20 0RF clotrimazole-betamethasone 1-0.05 % cream 1 appl topical BID 5 Days Qty: 45 0RF Referrals: Juve Crawford MD [Primary Care Provider] - 1 week (for suture removal)
[2022-12-31] MEDS: Lidocaine HCl 1 % MPF 5 ML VIAL INFILTRATI (12:15)
[2022-12-31] MEDS: Diphth,Pertus(ACell),Tet Adult 0.5 ML SYRINGE IM (12:15)
== END 2022-12-31 13:48 | disposition home or self-care (01) ==
PROVIDERS: Emergency Provider Emergency Medicine; PCP Internal Medicine
DX: S61.412A Laceration without foreign body of left hand, initial encounter (principal); S60.512A Abrasion of left hand, initial encounter; W01.0XXA Fall on same level from slipping, tripping and stumbling without subsequent striking against object, initial encounter; Y93.9 Activity, unspecified; Y92.481 Parking lot as the place of occurrence of the external cause; Y99.9 Unspecified external cause status; Z23 Encounter for immunization
CPT/HCPCS: 12001; 73130; 90471; 90715; 99281; 99284

== ENCOUNTER 2023-01-11 10:29 | Outpatient (AMB) | payer MEDICARE, MEDICAID, SELFPAY ==
[2023-01-11 10:34] VITALS: BP 124/72; PULSE 75; RESP 17; O2SAT 99; BMI 31.9
--- NOTE | 2023-01-11 10:34 | MHC.PC.OV ---
Vital Signs 01/11/23 10:34 Height 5 ft Weight 163 lb 6 oz BMI 31.9 BP 124/72 Blood Pressure Location Lt brachial Position Sitting Respiration 17 Pulse 75 Pulse Source Pulse Oximeter Pulse Oximetry (%) 99 Oxygen Delivery Method Room Air Intake Visit Reasons: Remove stitches from left hand Intake Note: Pt is here for left hand stitches removal. 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: No Accompanied by: Self / Same As Patient Allergies lisinopril [LISINOPRIL] Allergy (Severe, Verified 01/11/23 11:05) ANAPYHLAXIS, swelling metformin [METFORMIN] Allergy (Severe, Verified 01/11/23 11:05) ANAPHYLAXIS, diarrhea sumatriptan [From IMITREX] Allergy (Severe, Verified 01/11/23 11:05) ANAPHYLAXIS, sedation Medication List - Last Reconciled 01/11/23 by Juve Crawford MD acarbose 100 mg PO TID alcohol swabs (Alcohol Pads) 1 pad topical TID 30 days alprazolam 1 mg PO TID PRN bisacodyl 5 - 10 mg (1 - 2 x 5 mg) PO BEDTIME 90 days blood sugar diagnostic (FreeStyle Lite Strips) test blood sugar once a day as instructed - frequent low blood sugar readings blood-glucose meter (FreeStyle Lite Meter kit) As directed once a day cetirizine 10 mg PO DAILY PRN 90 days clonidine HCl 0.1 mg PO DAILY clotrimazole-betamethasone 1-0.05 % 1 appl topical BID 5 days cyanocobalamin (vitamin B-12) 500 mcg sublingual daily, saturday - saturday; 30 days dexlansoprazole 60 mg PO DAILY dicyclomine 20 mg PO QID PRN ferrous sulfate 325 mg PO DAILY fluconazole (Diflucan) 150 mg PO Q3D 2 doses fluticasone propionate 50 mcg/actuation 1 spray intranasal DAILY hydrocortisone 2.5% (Proctosol HC) 1 appl MA BID ibuprofen 800 mg PO TID PRN 30 days ipratropium bromide 1 spray intranasal BID lancets (FreeStyle Lancets) test blood sugar once as instructed - frequent LOW blood sugar readings levonorgestrel (Mirena) 1 device intrauterine ONCE levothyroxine 50 mcg PO DAILY 90 days linaclotide (Linzess) 290 mcg PO DAILY 30 days melatonin 5 - 10 mg PO BEDTIME PRN meloxicam 15 mg PO DAILY metoclopramide HCl (Reglan) 10 mg PO QIDACHS mometasone 0.1% 1 appl topical DAILY PRN [id number]-tnhc-[id number] acid 18-400 mg-mcg (Certavite-Antioxidant) 1 tab PO DAILY oxybutynin chloride ER 10 mg PO DAILY peg 3350-electrolytes 236-22.74-6.74 -5.86 gram (Golytely) 240 mL PO Q10M 1 day rosuvastatin (Crestor) 5 mg PO DAILY simethicone 180 mg PO QID 30 days terconazole 0.8% 1 appful vaginal BEDTIME 3 days topiramate 100 mg PO BEDTIME 90 days tramadol 1 tablet 1 to 2 times a day orally ONLY NEEDED for SEVERE PAIN; 30 days Tobacco use date assessed: 10/24/22 Dental Screening Dental Screen Date: 01/11/23 Did you have a dental visit in the last 12 months?: No Did you have a dental problem in the last 6 months where you did not have access to dental care?: No Was dental information given to patient?: Patient has dentist HPI Remove stitches from left hand HPI Details Patient comes in today mainly to have the sutures on her left hand removed She accidentally tripped and fell outside a local [employer] about 11 days ago on 12/31/2022 and apparently landed with her left hand on some broken pieces of glass on the ground, sustaining a laceration injury to her hand She went to the ER for medical attention and her left hand laceration was sutured and closed up She was also given a tetanus booster as it was unclear at the time as to when she last had her tetanus immunization She also had x-rays of the left hand done at the time and her x-rays came back negative with only some swelling along the 5th metacarpal noted She was sent home with instructions on daily wound care and to return in 7 to 10 days to have the sutures removed States that other than some lingering pain and recurrent itching over the wound on her left hand, she feels okay and has no other acute complaints or symptoms Patient also requested to get her flu shot today [facility] Medical History (Updated 01/11/23 @ 11:29 by Juve Crawford MD) Hypothyroidism (acquired) Renal calculi Anemia Vitamin D deficiency Pure hypercholesterolemia Obesity (BMI 30-39.9) Costochondritis Lumbar degenerative disc disease Migraine Allergic rhinitis Diabetes mellitus Occipital neuralgia of left side Chronic pain syndrome Spondylosis of cervical spine without myelopathy Type 2 diabetes mellitus in remission Arthritis EKG abnormalities Anal fissure Renal stones Gastroparesis Hepatomegaly Leukocytosis MIO on CPAP Insomnia Anxiety Constipation GERD (gastroesophageal reflux disease) B12 deficiency Proteinuria Type 2 diabetes mellitus with other diabetic kidney complication Dyslipidemia Hypoglycemia after GI (gastrointestinal) surgery Surgical History H/O colonoscopy H/O gastric bypass History of tubal ligation Hx of lithotripsy History of umbilical hernia Hx of section History of esophagogastroduodenoscopy (EGD) Hx of bilateral breast reduction surgery Hx of cholecystectomy Family History Father Liver cancer Hypertension Diabetes mellitus CVD (cardiovascular disease) Liver failure Mother Hypercholesterolemia Breast cancer Asthma Depression Maternal Grandmother Diabetes mellitus Hypertension Paternal Grandmother Diabetes mellitus Hypertension Social History Household Members: Significant Other Housing: House Alcohol intake: never Patient Tobacco Use Status: Never used Tobacco e-Cigarette/Vaping Use: Never Used Second Hand Smoke Exposure: Yes service: No Current occupational status: disabled Cognitive needs: No Hearing needs: No Vision needs: Yes Female Reproductive History Menstrual Age of Menarche: 11 Questionnaire Thrive Questionnaire Date Thrive assessed: 10/24/22 SUSAN-7 AMB Questionnaire SUSAN-7 Date SUSAN - 7 assessed: 10/24/22 Source: Developed by Drs. Arthur Duran, Amira Brownlee, Nikos Pelayo and colleagues, with an educational beatriz from [employer]. Review of Systems Const Denies fever(s) and Denies headache(s) (better controlled) ENT Denies dysphagia, Denies dizziness, Denies headache(s) (better controlled), Reports neck pain and Denies sore throat Card Denies chest pain, Denies lightheadedness, Denies palpitations and Denies dyspnea Resp Denies cough, Denies dyspnea and Denies wheezing GI Denies abdominal pain, Reports constipation (chronic), Denies dysphagia, Denies diarrhea, Denies nausea and Denies vomiting Musc Reports back pain (chronic), Reports neck pain, Reports radiating pain into limb (down right leg and into the foot) and Denies tingling Skin/Breast Details: (+) healed wound on the left hand, with some pain and itching Neuro Denies dizziness, Denies headache(s) (better controlled) and Denies tingling Endo Denies palpitations Aller/Immun Denies wheezing Physical exam (Primary Care) Vital Signs: Last Vital Signs Pulse 75 01/11/23 10:34 Resp 17 01/11/23 10:34 BP 124/72 01/11/23 10:34 Pulse Ox 99 01/11/23 10:34 Oxygen Delivery Method Room Air 01/11/23 10:34 BMI result Body Mass Index 31.9 Tobacco/Smoking Status: Tobacco use Status Tobacco use date assessed 10/24/22 01/11/23 10:36 Patient Tobacco Use Status Never used Tobacco 01/11/23 10:36 e-Cigarette/Vaping Use Never Used 01/11/23 10:36 Thrive Assessment: Date of Thrive Assessment Date Thrive assessed 10/24/22 01/11/23 10:36 Const General: no acute distress and alert HENMT Throat: Yes posterior oropharynx normal and Yes tonsils normal (no TP congestion noted) Neck Neck: Yes no lymphadenopathy and Yes supple Resp Auscultation: clear to auscultation bilaterally, no rales and no wheezes Cardio Rate: regular rate Rhythm: regular rhythm Heart sounds: no murmurs GI Palpation (GI): Soft to palpation and nontender Auscultation: normal bowel sounds Back/Spine/Pelvis Cervical Spine: Cervical spine tenderness Thoracic/Lumbar Spine: paraspinal muscle tenderness on the right in the upper lumbar, in the mid lumbar and in the lower lumbar and lumbar spinal tenderness Extrem Other: (+) healed laceration injury over the ulnar side of the left hand, with 3 sutures intact; wound looks clear with no erythema and no evidence of infection General: Yes no clubbing, cyanosis or edema Office Procedures Flu Questionnaire Does the patient have a severe egg allergy?: No Does the patient have severe life threatening allergies?: No Does the patient have a fever or illness today?: No Has the patient ever had Guillain-Maxbass Syndrome?: No Has the patient ever had any past reaction to a flu shot?: No Immunizations flu vacc [id number] 6mos up(PF) 60 mcg(15 mcgx4)/0.5 mL IM syringe Performing Provider: Juve Crawford MD [facility] Administered by: EVANGELINA Juarez on 01/11/23 10:48 Dose Route Admin Location Dispensed Lot Number Expiration Date NDC [employer] 0.5 mL IM Left Deltoid 0.5 mL [id number] 09/15/23 [id number] [employer] VIS Given Date VIS Provided VIS Publication Date 01/11/23 Single Vaccine 20 Eligibility Eligibility Date Funding Source Not [facility] Eligible 01/11/23 Private Assessment and Plan Assessment & Plan (1) Hand laceration: Code(s): S61.419A - Laceration without foreign body of unspecified hand, initial encounter Qualifiers: Encounter type: subsequent encounter Foreign body presence: without foreign body Laterality: left Qualified Code(s): S61.412D - Laceration without foreign body of left hand, subsequent encounter (2) Encounter for removal of sutures: Code(s): Z48.02 - Encounter for removal of sutures Plan Patient's left hand injury sustained back on 12/31/22 - see HPI Wound currently looks cleaned and well-healed, with sutures intact Wound cleaned and irrigated, then proceeded to remove the 3 sutures easily without any problems; patient tolerated procedure well Wound again looks healed/closed; we then cleaned and dressed patient's hand wound and instructed her to continue with daily wound care for a few more days Per request, flu vaccine given today Follow up as scheduled next month Orders: Orders Influenza [id number] Immunization Today Z23 - Encounter for immunization Coding Level of Care Code Est Pt Level 3 (02476) Diagnoses Laceration of left hand without foreign body, subsequent encounter S61.412D Encounter type: subsequent encounter Foreign body presence: without foreign body Laterality: left Encounter for removal of sutures Z48.02
== END 2023-01-11 11:15 | disposition home or self-care (01) ==
PROVIDERS: PCP Internal Medicine; Visit Provider Internal Medicine
DX: S61.412D Laceration without foreign body of left hand, subsequent encounter (principal); Z48.02 Encounter for removal of sutures; Z23 Encounter for immunization
CPT/HCPCS: 90471; 90686; 99213

== ENCOUNTER 2023-01-17 07:59 | Outpatient (REF) | payer MEDICARE, MEDICAID, SELFPAY ==
[2023-01-17 08:16] LABS: MANUAL DIFF FLAG NO
[2023-01-17 08:50] LABS: Basophils Absolute Auto 0.1 X10*3/uL (0.0-0.2); Basophils Percent Auto 0.6 % (0-2); Eosinophils Absolute Auto 0.2 X10*3/uL (0.0-0.4); Eosinophils Percent Auto 1.6 % (0-4); Hemoglobin 11.2 g/dl (12.0-16.0); Imm Gran Abs Auto 0.05 X10*3/uL (0.00-0.03); Imm Gran Pct Auto 0.5 % (0.0-0.4); Lymphocytes Absolute Auto 2.2 X10*3/uL (1.2-4.9); Lymphocytes Percent Auto 20.7 % (20-40); Mean Corpuscular Hemoglobin 27.4 pg (27.0-33.0); Mean Corpuscular Volume 85.6 fL (80.0-98.0); Mean Platelet Volume 10.9 fL (9.4-12.3); Monocytes Absolute Auto 0.9 X10*3/uL (0.1-1.2); Monocytes Percent Auto 8.3 % (2-11); Neutrophils Absolute Auto 7.1 x10*3/uL (2.0-8.3); Neutrophils Percent Auto 68.3 % (45-73); Platelet Count 320 X10*3/uL (160-400); Red Blood Count 4.09 X10*6/uL (4.20-5.50); Red Cell Distribution Width 14.1 % (11.0-16.0); White Blood Count 10.4 X10*3/uL (4.8-10.8)
[2023-01-17 08:55] LABS: Estimated Average Glucose 97 mg/dL
[2023-01-17 08:59] LABS: Appearance Urine Clear; Color Urine Yellow; Glucose Urine UA Negative (Negative); Leukocyte Esterase Urine Negative (Negative); Nitrite Urine Negative (Negative); Urine Blood Negative (Negative); Urine Ketones Trace mg/dL (Negative); Urine Protein Negative (Neg-Trace)
[2023-01-17 09:29] LABS: Alanine Aminotransferase 13 U/L (0-31); Alkaline Phosphatase 51 U/L (39-117); Anion Gap 9 (12-20); Aspartate Amino Transferase 23 U/L (5-31); Bilirubin Total 0.4 mg/dL (0.0-1.0); Blood Urea Nitrogen 14 mg/dL (9-16); Calcium 9.3 mg/dL (8.4-10.2); Carbon Dioxide 23 mmol/L (22-29); Chloride 110 mmol/L (96-108); Cholesterol 117 mg/dL (<200); Estimated Glomerular Filt Rate > 60; Glucose Fasting 85 mg/dL (60-99); HDL Cholesterol 51 mg/dL (>40); LDL Cholesterol Calculated 49 mg/dL (<100); Sodium 138 mmol/L (135-145); Total Protein 7.5 g/dL (6.5-8.0); Triglycerides 87 mg/dL (<150)
[2023-01-17 09:30] LABS: Creatinine Urine 165.51 mg/dL; Microalbum/Creatinine Ratio Ur 5.4 ug/mg cr (<30)
[2023-01-17 09:50] LABS: Free T4 (Free Thyroxine) 0.82 ng/dL (0.71-1.85); Vitamin D 25-OH Total 38.3 ng/mL (>30)
[2023-01-17 10:01] LABS: Folate 15.1 ng/mL (> or = 4.0); Vitamin B12 446 pg/mL (200-900)
== END 2023-01-17 08:00 | disposition home or self-care (01) ==
LOC: HO.LAB 07:59
PROVIDERS: PCP Internal Medicine; Visit Provider Internal Medicine
DX: E03.9 Hypothyroidism, unspecified (principal); E11.9 Type 2 diabetes mellitus without complications; I10 Essential (primary) hypertension; E78.00 Pure hypercholesterolemia, unspecified; E55.9 Vitamin D deficiency, unspecified; R30.0 Dysuria; E53.8 Deficiency of other specified B group vitamins; N20.0 Calculus of kidney; R39.15 Urgency of urination; N32.81 Overactive bladder; Z87.442 Personal history of urinary calculi; Z79.899 Other long term (current) drug therapy
CPT/HCPCS: 36415; 80053; 80061; 81003; 82043; 82306; 82570; 82607; 82746; 83036; 84439; 84443; 85025; 99212

== ENCOUNTER 2023-01-17 12:28 | Outpatient (AMB) | payer MEDICARE, MEDICAID, SELFPAY ==
--- NOTE | 2023-01-17 12:42 | A.OFFVIS_ITS ---
Intake Intake Visit Reasons: 1 yr follow up/ US Intake Note: Patient presents today for a follow-up on ultrasound results: Meds- Oxybutynin Allergies to Antibiotic- No Known Allergies Blood Thinner- None Surgical Brace Maker Required: No Accompanied by: Self / Same As Patient Allergies lisinopril [LISINOPRIL] Allergy (Severe, Verified 01/17/23 13:06) ANAPYHLAXIS, swelling metformin [METFORMIN] Allergy (Severe, Verified 01/17/23 13:06) ANAPHYLAXIS, diarrhea sumatriptan [From IMITREX] Allergy (Severe, Verified 01/17/23 13:06) ANAPHYLAXIS, sedation HPI HPI Comments History of Present Illness Details Ton is a 47-year-old female who presents today to the office for a follow-up. 01/17/2023? She is followed kidney stones and OAB. Prior gastric bypass surgery 2015 She was last seen by me on 01/08/2023. She has been taking oxybutynin with benefit improvement in urinary urgency She denies any burning with urination or any other urinary symptoms. She states that she is drinking adequate amount of fluids. She also mentions that she is adding lemonade to water. I reviewed renal ultrasound results 12/20/22-- No kidney stones noted. Review of charts: Imaging: renal U/S results 9.- kidneys WNL, no recurrent stones. She is encouraged to CT Imaging showed 2 mm stone left kidney 01/17/2023: Evaluation today--UA-- leukoc ytes: negative; blood: negative. 01/17/2023: Plan: Continue to monitor kidneys. Will start vitamin B6 100 mg daily. Instructed to continue drinking adequate amount of fluids and adding lemonade to water. Continue oxybutynin 10 mg daily. Follow-up in 1 year with renal US. [facility] Medical History Hypothyroidism (acquired) Renal calculi Anemia Vitamin D deficiency Pure hypercholesterolemia Obesity (BMI 30-39.9) Costochondritis Lumbar degenerative disc disease Migraine Allergic rhinitis Diabetes mellitus Occipital neuralgia of left side Chronic pain syndrome Spondylosis of cervical spine without myelopathy Type 2 diabetes mellitus in remission Arthritis EKG abnormalities Anal fissure Renal stones Gastroparesis Hepatomegaly Leukocytosis MIO on CPAP Insomnia Anxiety Constipation GERD (gastroesophageal reflux disease) B12 deficiency Proteinuria Type 2 diabetes mellitus with other diabetic kidney complication Dyslipidemia Hypoglycemia after GI (gastrointestinal) surgery Surgical History H/O colonoscopy H/O gastric bypass History of tubal ligation Hx of lithotripsy History of umbilical hernia Hx of section History of esophagogastroduodenoscopy (EGD) Hx of bilateral breast reduction surgery Hx of cholecystectomy Family History Father Liver cancer Hypertension Diabetes mellitus CVD (cardiovascular disease) Liver failure Mother Hypercholesterolemia Breast cancer Asthma Depression Maternal Grandmother Diabetes mellitus Hypertension Paternal Grandmother Diabetes mellitus Hypertension Social History Household Members: Significant Other Housing: House Alcohol intake: never Patient Tobacco Use Status: Never used Tobacco e-Cigarette/Vaping Use: Never Used Second Hand Smoke Exposure: Yes service: No Current occupational status: disabled Cognitive needs: No Hearing needs: No Vision needs: Yes Female Reproductive History Menstrual Age of Menarche: 11 Review of Systems Const All systems reviewed & are unremarkable except as noted in HPI and below Reports no additional complaints Eyes Reports no additional complaints ENT Denies neck pain Card Denies leg edema Resp Denies cough Reports no additional complaints Musc Reports no additional complaints and Denies neck pain Skin/Breast Denies rash and Denies unusual bruising Neuro Reports no additional complaints Psych Reports no additional complaints Endo Reports no additional complaints Huang/Lymph Reports no additional complaints Aller/Immun Reports no additional complaints Results AMB Urinalysis, Automated UA Leukoctes 0 Yossi/uL Last Edit by JACKY Grande on 01/17/23 13:20 UA Nitrite Negative Last Edit by JACKY Grande on 01/17/23 13:20 UA Urobilinogen 0.2 mg/dL Last Edit by JACKY Grande on 01/17/23 13:2 0 UA Protein 15 mg/dL Last Edit by JACKY Grande on 01/17/23 13:20 UA pH 6.0 Last Edit by Chayo Brown A on 01/17/23 13:20 UA Blood 0 Donnell/uL Last Edit by JACKY Grande on 01/17/23 13:20 UA Specific [place] 1.030 Last Edit by Chayo Brown Chuck on 01/17/23 13: 20 UA Ketone Negative Last Edit by Chayo Bronw A on 01/17/23 13:20 UA Bilirubin 1 mg/dL Last Edit by Chayo Brown Chuck on 01/17/23 13:20 1+ Chayo Brown 01/17/23 13:20 UA Glucose 0 mg/dL Last Edit by JACKY Grande on 01/17/23 13:20 Results Reviewed Results Reviewed: Laboratory Last Values Urine pH (Auto) 6.0 01/17/23 13:18 Specific [place] (Auto) 1.030 01/17/23 13:18 Urine Protein (Auto) 15 mg/dL 01/17/23 13:18 Glucose (UA)(Auto) 0 mg/dL 01/17/23 13:18 Urine Ketones (Auto) Negative 01/17/23 13:18 Urine Blood (Auto) 0 Donnell/uL 01/17/23 13:18 Urine Nitrite (Auto) Negative 01/17/23 13:18 Urine Bilirubin (Auto) 1 mg/dL 01/17/23 13:18 Urine Urobilinogen (Auto) 0.2 mg/dL 01/17/23 13:18 Leukocyte Esterase (Auto) 0 Yossi/uL 01/17/23 13:18 Date of Service: 12/20/22 EXAMINATION: US RETROPERITONEAL LIMITED (RENAL ONLY) CLINICAL INFORMATION: Personal history of urinary calculi. COMPARISON: Ultrasound retroperitoneal limited (renal only) 12/13/2021. CT abdomen and pelvis without contrast 08/26/2020. Ultrasound retroperitoneal limited (renal only) 01/26/2019. X-ray abdomen 06/30/2018 and 01/09/2018. FINDINGS: RIGHT KIDNEY: 11.5 x 5.2 x 5.3 cm (SAG x AP x TRV). The kidney is normal in size, contour, and echogenicity. Renal cortical thickness is increased in the mid right kidney. This is similar to prior exams. It is uncertain whether this is related to a partially duplicated right renal collecting system. No calculi or focal parenchymal lesions. No hydronephrosis. LEFT KIDNEY: 11.8 x 5.2 x 5.6 cm (SAG x AP x TRV). The kidney is normal in size, contour, and echogenicity. Renal cortical thickness is normal. No calculi or focal parenchymal lesions. No hydronephrosis. The left upper pole renal stones seen by CT August 2020 are not appreciated by ultrasound. IMPRESSION: No stone appreciated by ultrasound Assessment & Plan Assessment & Plan (1) OAB (overactive bladder): Code(s): N32.81 - Overactive bladder (2) History of kidney stones: Code(s): Z87.442 - Personal history of urinary calculi (3) Nephrolithiasis: Code(s): N20.0 - Calculus of kidney Plan Continue to monitor kidneys. Will start vitamin B6 100 mg daily. Instructed to continue drinking adequate amount of fluids and adding lemonade to water. Continue oxybutynin 10 mg daily. Follow-up in 1 year with renal US. Orders: Orders AMB Urinalysis Automated 01/17/23 Z13.9 - Encounter for screening, unspecified US renal BI 10 Months N20.0 - Calculus of kidney, Z87.442 - Personal history of urinary calculi Medications: New pyridoxine (vitamin B6) 100 mg PO DAILY 90 tabs 3RF Refilled oxybutynin chloride ER 10 mg PO DAILY 90 tabs 3RF R35.0 - Frequency of micturition Patient Instructions: The patient had an opportunity to ask questions regarding treatment plan. All questions were answered. Imaging, Laboratory studies and physical exam results were discussed and reviewed in detail. No major barriers to understanding were identified. The patient expressed understanding and agreement with the above treatment plan. The patient is aware they should contact our office by phone for worsening of their current condition or the appearance of new symptoms. Compliance is encouraged with any medications and followup testing that is ordered. It is a privilege to be allowed the opportunity to participate in the urologic care of your patient. If you have any questions or concerns regarding treatment for the above conditions please do not hesitate to contact me. The office telephone contact is [phone]. This note is constructed in part using voice recognition software. While every effort has been made to ensure accuracy business asst errors may have been included. Yours sincerely, Michelle Schulte MD Coding Level of Care Code Est Pt Level 4 (21387) Diagnoses OAB (overactive bladder) N32.81 History of kidney stones Z87.442 Nephrolithiasis N20.0
== END 2023-01-17 13:37 | disposition home or self-care (01) ==
PROVIDERS: PCP Internal Medicine; Visit Provider Urology
DX: N32.81 Overactive bladder (principal); Z87.442 Personal history of urinary calculi; N20.0 Calculus of kidney
CPT/HCPCS: 99214

== ENCOUNTER 2023-01-24 11:24 | Outpatient (AMB) | payer MEDICARE, MEDICAID, SELFPAY ==
[2023-01-24 11:29] VITALS: BP 116/70; PULSE 56; O2SAT 98; BMI 32.7
--- NOTE | 2023-01-24 11:29 | MHC.PC.OV ---
Vital Signs 01/24/23 11:29 Height 5 ft Weight 167 lb 8 oz BMI 32.7 BP 116/70 Blood Pressure Location Lt brachial Pulse 56 Pulse Source Pulse Oximeter Pulse Oximetry (%) 98 Oxygen Delivery Method Room Air Intake Visit Reasons: 3mth f/u Product Responsibility Liaison Required: No Accompanied by: Self / Same As Patient Allergies lisinopril [LISINOPRIL] Allergy (Severe, Verified 01/24/23 12:02) ANAPYHLAXIS, swelling metformin [METFORMIN] Allergy (Severe, Verified 01/24/23 12:02) ANAPHYLAXIS, diarrhea sumatriptan [From IMITREX] Allergy (Severe, Verified 01/24/23 12:02) ANAPHYLAXIS, sedation Medication List - Last Reconciled 01/24/23 by Juve Crawford MD acarbose 100 mg PO TID alcohol swabs (Alcohol Pads) 1 pad topical TID 30 days alprazolam 1 mg PO TID PRN bisacodyl 5 - 10 mg (1 - 2 x 5 mg) PO BEDTIME 90 days blood sugar diagnostic (FreeStyle Lite Strips) test blood sugar once a day as instructed - frequent low blood sugar readings blood-glucose meter (FreeStyle Lite Meter kit) As directed once a day cetirizine 10 mg PO DAILY PRN 90 days clonidine HCl 0.1 mg PO DAILY clotrimazole-betamethasone 1-0.05 % 1 appl topical BID 5 days cyanocobalamin (vitamin B-12) 500 mcg sublingual daily, saturday - saturday; 30 days dexlansoprazole 60 mg PO DAILY dicyclomine 20 mg PO QID PRN ferrous sulfate 325 mg PO DAILY fluconazole (Diflucan) 150 mg PO Q3D 2 doses fluticasone propionate 50 mcg/actuation 1 spray intranasal DAILY hydrocortisone 2.5% (Proctosol HC) 1 appl MT BID ibuprofen 800 mg PO TID PRN 30 days ipratropium bromide 1 spray intranasal BID lancets (FreeStyle Lancets) test blood sugar once as instructed - frequent LOW blood sugar readings levonorgestrel (Mirena) 1 device intrauterine ONCE levothyroxine 50 mcg PO DAILY 90 days linaclotide (Linzess) 290 mcg PO DAILY 30 days melatonin 5 - 10 mg PO BEDTIME PRN meloxicam 15 mg PO DAILY metoclopramide HCl (Reglan) 10 mg PO QIDACHS mometasone 0.1% 1 appl topical DAILY PRN lpipfrbjqvul-axah-nkzqu acid 18-400 mg-mcg (Certavite-Antioxidant) 1 tab PO DAILY oxybutynin chloride ER 10 mg PO DAILY peg 3350-electrolytes 236-22.74-6.74 -5.86 gram (Golytely) 240 mL PO Q10M 1 day pyridoxine (vitamin B6) 100 mg PO DAILY rosuvastatin (Crestor) 5 mg PO DAILY simethicone 180 mg PO QID 30 days terconazole 0.8% 1 appful vaginal BEDTIME 3 days topiramate 100 mg PO BEDTIME 90 days tramadol 1 tablet 1 to 2 times a day orally ONLY NEEDED for SEVERE PAIN; 30 days Tobacco use date assessed: 01/24/23 Dental Screening Dental Screen Date: 01/24/23 Did you have a dental visit in the last 12 months?: Yes Did you have a dental problem in the last 6 months where you did not have access to dental care?: No Was dental information given to patient?: Patient has dentist HPI 3mth f/u HPI Details Patient comes in today for her follow up visit States that she feels okay She denies any headaches or dizziness Denies any chest pains, no shortness of breath No nausea/ vomiting, no abdominal pain No change in bowel habits noted Had her follow up labs done last week - to discuss her results [facility] Medical History Hypothyroidism (acquired) Renal calculi Anemia Vitamin D deficiency Pure hypercholesterolemia Obesity (BMI 30-39.9) Costochondritis Lumbar degenerative disc disease Migraine Allergic rhinitis Diabetes mellitus Occipital neuralgia of left side Chronic pain syndrome Spondylosis of cervical spine without myelopathy Type 2 diabetes mellitus in remission Arthritis EKG abnormalities Anal fissure Renal stones Gastroparesis Hepatomegaly Leukocytosis MIO on CPAP Insomnia Anxiety Constipation GERD (gastroesophageal reflux disease) B12 deficiency Proteinuria Type 2 diabetes mellitus with other diabetic kidney complication Dyslipidemia Hypoglycemia after GI (gastrointestinal) surgery Surgical History H/O colonoscopy H/O gastric bypass History of tubal ligation Hx of lithotripsy History of umbilical hernia Hx of section History of esophagogastroduodenoscopy (EGD) Hx of bilateral breast reduction surgery Hx of cholecystectomy Family History Father Liver cancer Hypertension Diabetes mellitus CVD (cardiovascular disease) Liver failure Mother Hypercholesterolemia Breast cancer Asthma Depression Maternal Grandmother Diabetes mellitus Hypertension Paternal Grandmother Diabetes mellitus Hypertension Social History Household Members: Significant Other Housing: House Alcohol intake: never Patient Tobacco Use Status: Never used Tobacco e-Cigarette/Vaping Use: Never Used Second Hand Smoke Exposure: Yes service: No Current occupational status: disabled Cognitive needs: No Hearing needs: No Vision needs: Yes Female Reproductive History Menstrual Age of Menarche: 11 Questionnaire PHQ-9 Over the last 2 weeks, how often have you been bothered by any of the following problems? 1. Little interest or pleasure in doing things: not at all 2. Feeling down, depressed, or hopeless: not at all 3. Trouble falling or staying asleep, or sleeping too much: not at all 4. Feeling tired or having little energy: not at all 5. Poor appetite or overeating: not at all 6. Feeling bad about yourself - or that you are a failure or have let yourself or your family down: not at all 7. Trouble concentrating on things, such as reading the newspaper or watching television: not at all 8. Moving or speaking so slowly that other people could have noticed. Or the opposite - being so fidgety or restless that you have been moving around a lot more than usual: not at all 9. Thoughts that you would be better off or of hurting yourself in some way: not at all Total score: 0 Depression Screening Interpretation: Negative Depression Screening Done: Yes 01150 - PHQ-9 Billing: Yes Source: Developed by Drs. Arthur Duran, Amira Brownlee, Nikos Pelayo and colleagues, with an educational beatriz from [employer]. Thrive Questionnaire Date Thrive assessed: 01/24/23 I am a: Patient What is your living situation today?: I have a steady place to live Within the past 12 months, did the food you bought not last and you didn't have the money to get more?: Never true Within the past 12 months, did you worry whether your food would run out before you got money to buy more?: Never true Do you have trouble paying for medicines?: No Do you have trouble getting transportation to medical appointments?: No Do you have trouble paying your heating and electricity bill?: No Do you have trouble taking care of your child, family member or friend?: No Do you have trouble with day-to-day activities such as bathing, preparing meals, shopping, managing finances, etc.?: No Are you currently unemployed and looking for a job?: No Are you interested in more education?: No Please select the resources that you would like help with: None Currently or been in a relationship where the following occur: no concerns reported AUDIT C Alcohol Use Questionnaire (AUDIT-C) 1. How often do you have a drink containing alcohol?: Never 3. How often do you have six or more drinks on one occasion?: Never Total Score: 0 Score Reviewed/Action Taken: Yes SUSAN-7 AMB Questionnaire SUSAN-7 Date SUSAN - 7 assessed: 01/24/23 Feeling nervous, anxious, or on edge: 0 = Not at all Not being able to stop or control worryin = Not at all Worrying too much about different things: 0 = Not at all Trouble relaxin = Not at all Being so restless that it is hard to sit still: 0 = Not at all Becoming easily annoyed or irritable: 0 = Not at all Feeling afraid as if something awful might happen: 0 = Not at all Total SUSAN-7 score (0-4 normal; 5-9 mild; 10-14 moderate; 15-21 severe): 0 Source: Developed by Drs. Arthur Duran, Amira Brownlee, Nikos Pelayo and colleagues, with an educational beatriz from [employer]. Review of Systems Const Denies chills, Denies fatigue, Denies fever(s) and Denies headache(s) (better controlled) ENT Denies dysphagia, Denies dizziness, Denies otalgia, Denies headache(s) (better controlled), Reports neck pain, Denies odynophagia and Denies sore throat Card Denies chest pain, Denies lightheadedness, Denies palpitations and Denies dyspnea Resp Denies cough, Denies dyspnea and Denies wheezing GI Denies abdominal pain, Reports constipation (chronic), Denies dysphagia, Denies diarrhea, Denies nausea, Denies odynophagia and Denies vomiting Denies difficulty voiding, Denies nocturia and Denies dysuria Musc Reports back pain (chronic), Reports neck pain, Reports radiating pain into limb (down right leg and into the foot) and Denies tingling Skin/Breast Denies rash Neuro Denies dizziness, Denies headache(s) (better controlled) and Denies tingling Endo Denies fatigue and Denies palpitations Aller/Immun Denies wheezing Physical exam (Primary Care) Vital Signs: Last Vital Signs Pulse 56 01/24/23 11:29 BP 116/70 01/24/23 11:29 Pulse Ox 98 01/24/23 11:29 Oxygen Delivery Method Room Air 01/24/23 11:29 BMI result Body Mass Index 32.7 Tobacco/Smoking Status: Tobacco use Status Tobacco use date assessed 01/24/23 01/24/23 11:35 Patient Tobacco Use Status Never used Tobacco 01/24/23 11:35 e-Cigarette/Vaping Use Never Used 01/24/23 11:35 PHQ-9: PHQ-9 Score PHQ-9: Total score 0 01/24/23 12:05 Depression Screening Interpretation: Negative Thrive Assessment: Date of Thrive Assessment Date Thrive assessed 01/24/23 01/24/23 11:35 Currently or been in a relationship where the following occur: no concerns reported Const General: no acute distress and alert HENMT Ears: TM's normal bilaterally and EAC's normal Throat: Yes posterior oropharynx normal and Yes tonsils normal (no TP congestion noted) Neck Neck: Yes no lymphadenopathy and Yes supple Resp Auscultation: clear to auscultation bilaterally, no rales and no wheezes Cardio Rate: regular rate Rhythm: regular rhythm Heart sounds: no murmurs GI Palpation (GI): Soft to palpation and nontender Auscultation: normal bowel sounds Back/Spine/Pelvis Cervical Spine: Cervical spine tenderness Thoracic/Lumbar Spine: paraspinal muscle tenderness on the right in the upper lumbar, in the mid lumbar and in the lower lumbar and lumbar spinal tenderness Extrem General: Yes no clubbing, cyanosis or edema Results Reviewed Results Reviewed: Laboratory Tests 01/17/23 01/17/23 08:14 08:41 WBC 10.4 Hgb 11.2 L Hct 35.0 L Plt Count 320 Sodium 138 Potassium 4.0 Creatinine 0.79 Estimated GFR > 60 Fasting Glucose 85 Hemoglobin A1c % 5.0 Calcium 9.3 AST 23 ALT 13 Triglycerides 87 Cholesterol 117 LDL Cholesterol, Calc 49 HDL Cholesterol 51 Vitamin B12 446 25-OH Vitamin D Total 38.3 TSH 2.90 Free T4 0.82 Ur Specific [place] 1.020 Urine Protein Negative Urine Glucose (UA) Negative Urine Blood Negative Microalb/Creat Ratio 5.4 Assessment and Plan Assessment & Plan (1) Pure hypercholesterolemia: Code(s): E78.00 - Pure hypercholesterolemia, unspecified Plan: Results of her labs done last week reviewed and discussed with patient Reinforced low cholesterol diet Continue Rosuvastatin 5 mg QD Will recheck her labs and fasting lipids in 3 months for follow up (2) Diabetes mellitus: Code(s): E11.9 - Type 2 diabetes mellitus without complications Qualifiers: Diabetes mellitus complication status: without complication Diabetes mellitus terminal worker insulin use: without terminal worker use Diabetes mellitus type: type 2 Qualified Code(s): E11.9 - Type 2 diabetes mellitus without complications Plan: HgbA1c remains normal at 5.0% on her labs done last week; was at 4.9% a few months ago - goal is <6.5% Reinforced diabetic diet Continue Acarbose 100 mg TID Follow up with endocrinology as needed - has reportedly been advised by endocrinology that since her diabetes has been very well controlled, she can just follow up with her PCP and see endocrinology only as needed (3) Hypothyroidism (acquired): Code(s): E03.9 - Hypothyroidism, unspecified Plan: TFTs were normal on her recent labs Continue Levothyroxine 50 mcg QD Will continue to monitor her TFTs regularly (4) Migraine: Code(s): G43.909 - Migraine, unspecified, not intractable, without status migrainosus Qualifiers: Intractability: not intractable Migraine type: unspecified Status migrainosus presence: without status migrainosus Qualified Code(s): G43.909 - Migraine, unspecified, not intractable, without status migrainosus Plan: Stable on prophylactic Tx - continue Topiramate 100 mg Q HS Reinforced avoidance of potential migraine triggers (5) Chronic idiopathic constipation: Code(s): K59.04 - Chronic idiopathic constipation Plan: Reinforced increased oral fluids and dietary fiber Continue Linzess 290 mcg QD Follow up with GI as scheduled S/P screening colonoscopy a few months ago on 11/08/22 - recommend repeat colonoscopy in 2 to 3 years due to suboptimal prep (6) GERD (gastroesophageal reflux disease): Code(s): K21.9 - Gastro-esophageal reflux disease without esophagitis Qualifiers: Esophagitis presence: without esophagitis Qualified Code(s): K21.9 - Gastro-esophageal reflux disease without esophagitis Plan: Dietary restrictions reinforced Continue Omeprazole 40 mg QD Follow up with GI as scheduled (7) Anemia: Code(s): D64.9 - Anemia, unspecified Qualifiers: Anemia type: unspecified type Qualified Code(s): D64.9 - Anemia, unspecified Plan: Patient is still mildly anemic but her H/H have remained stable Continue Ferrous sulfate 325 mg QD and Vitamin B12 1000 mcg QD Follow up with hematology as scheduled (8) B12 deficiency: Code(s): E53.8 - Deficiency of other specified B group vitamins Plan: Corrected - continue Vitamin B12 tablets 1000 mcg QD (9) Vitamin D deficiency: Code(s): E55.9 - Vitamin D deficiency, unspecified Plan: Corrected - continue OTC Vitamin D supplements daily (10) Allergic rhinitis: Code(s): J30.9 - Allergic rhinitis, unspecified Qualifiers: Allergic rhinitis seasonality: unspecified Allergic rhinitis trigger: unspecified Qualified Code(s): J30.9 - Allergic rhinitis, unspecified Plan: Continue Fluticasone 50 mcg nasal spray QD PRN and Cetirizine 10 mg QD PRN (11) Lumbar degenerative disc disease: Code(s): M51.36 - Other intervertebral disc degeneration, lumbar region Plan: Reinforced activity and weight-lifting restrictions to minimize aggravating her low back pain Repeat lumbar spine x-rays done in April 2021 revealed (+) chronic changes of lumbar spine DDD Was sent for lumbar spine MRI for further evaluation but patient reportedly missed her appt and has not rescheduled Continue Ibuprofen 800 mg TID with food PRN for pain and Tramadol 50 mg 1 to 2 times a day ONLY as needed for SEVERE pain (12) Spondylosis of cervical spine without myelopathy: Code(s): M47.812 - Spondylosis without myelopathy or radiculopathy, cervical region Plan: Was seen by pain management a few months ago and recommended physical therapy and other modalities to help with her neck pain; recommended NO opioids as they do not think patient's current symptoms warrant Tx with long-term opioids She has been reportedly advised to follow up with them only on an as needed basis (13) Insomnia: Code(s): G47.00 - Insomnia, unspecified Qualifiers: Insomnia type: unspecified Qualified Code(s): G47.00 - Insomnia, unspecified Plan: Sleep hygiene reinforced Continue Amitriptyline 25 mg Q HS (14) Anxiety: Code(s): F41.9 - Anxiety disorder, unspecified Plan: Continue Alprazolam 1 mg TID PRN Follow up with psychiatry as scheduled (15) Obesity (BMI 30-39.9): Code(s): E66.9 - Obesity, unspecified Plan: Reinforced diet/exercise as tolerated/lose weight Plan Follow up in 3 months Orders: Orders Complete Blood Count Auto Diff 3 Months I10 - Essential (primary) hypertension Thyroid Stimulating Hormone 3 Months E03.9 - Hypothyroidism, unspecified Free T4 (Free Thyroxine) 3 Months E03.9 - Hypothyroidism, unspecified Microalbumin, Random (w Creat) 3 Months E11.9 - Type 2 diabetes mellitus without complications Lipid Panel 3 Months E78.00 - Pure hypercholesterolemia, unspecified Comprehensive [place]. Panel Fast 3 Months E78.00 - Pure hypercholesterolemia, unspecified Hemoglobin A1c 3 Months E11.9 - Type 2 diabetes mellitus without complications UA CC w/rflx Micro + Cult 3 Months R30.0 - Dysuria Coding Level of Care Code Est Pt Level 4 (33840) Diagnoses Pure hypercholesterolemia E78.00 Type 2 diabetes mellitus without complication, without long-term current use of insulin E11.9 Diabetes mellitus complication status: without complication Diabetes mellitus terminal worker insulin use: without terminal worker use Diabetes mellitus type: type 2 Hypothyroidism (acquired) E03.9 Migraine without status migrainosus, not intractable, unspecified migraine type G43.909 Intractability: not intractable Migraine type: unspecified Status migrainosus presence: without status migrainosus Chronic idiopathic constipation K59.04 Gastroesophageal reflux disease without esophagitis K21.9 Esophagitis presence: without esophagitis Anemia, unspecified type D64.9 Anemia type: unspecified type B12 deficiency E53.8 Vitamin D deficiency E55.9 Allergic rhinitis, unspecified seasonality, unspecified trigger J30.9 Allergic rhinitis seasonality: unspecified Allergic rhinitis trigger: unspecified Lumbar degenerative disc disease M51.36 Spondylosis of cervical spine without myelopathy M47.812 Insomnia, unspecified type G47.00 Insomnia type: unspecified Anxiety F41.9 Obesity (BMI 30-39.9) E66.9
== END 2023-01-24 12:08 | disposition home or self-care (01) ==
PROVIDERS: PCP Internal Medicine; Visit Provider Internal Medicine
DX: E78.00 Pure hypercholesterolemia, unspecified (principal); E11.9 Type 2 diabetes mellitus without complications; E03.9 Hypothyroidism, unspecified; G43.909 Migraine, unspecified, not intractable, without status migrainosus; K59.04 Chronic idiopathic constipation; K21.9 Gastro-esophageal reflux disease without esophagitis; D64.9 Anemia, unspecified; E53.8 Deficiency of other specified B group vitamins; E55.9 Vitamin D deficiency, unspecified; J30.9 Allergic rhinitis, unspecified; M51.36 Other intervertebral disc degeneration, lumbar region; M47.812 Spondylosis without myelopathy or radiculopathy, cervical region
CPT/HCPCS: 99214

== ENCOUNTER 2023-04-29 08:23 | Outpatient (REF) | payer MEDICARE, MEDICAID, SELFPAY ==
[2023-04-29 08:48] LABS: MANUAL DIFF FLAG NO
[2023-04-29 09:17] LABS: Basophils Absolute Auto 0.1 X10*3/uL (0.0-0.2); Basophils Percent Auto 0.6 % (0-2); Eosinophils Absolute Auto 0.2 X10*3/uL (0.0-0.4); Eosinophils Percent Auto 2.6 % (0-4); Hematocrit 33.8 % (37.0-47.0); Hemoglobin 10.8 g/dl (12.0-16.0); Imm Gran Abs Auto 0.05 X10*3/uL (0.00-0.03); Imm Gran Pct Auto 0.6 % (0.0-0.4); Lymphocytes Absolute Auto 1.9 X10*3/uL (1.2-4.9); Lymphocytes Percent Auto 22.2 % (20-40); Mean Corpuscular Hemoglobin 27.8 pg (27.0-33.0); Mean Corpuscular Volume 87.1 fL (80.0-98.0); Mean Platelet Volume 11.1 fL (9.4-12.3); Monocytes Absolute Auto 0.7 X10*3/uL (0.1-1.2); Monocytes Percent Auto 7.9 % (2-11); Neutrophils Absolute Auto 5.7 x10*3/uL (2.0-8.3); Neutrophils Percent Auto 66.1 % (45-73); Platelet Count 280 X10*3/uL (160-400); Red Blood Count 3.88 X10*6/uL (4.20-5.50); Red Cell Distribution Width 13.9 % (11.0-16.0); White Blood Count 8.5 X10*3/uL (4.8-10.8)
[2023-04-29 09:38] LABS: Estimated Average Glucose 94 mg/dL; Hemoglobin A1c % 4.9 % (<6.0)
[2023-04-29 10:08] LABS: Appearance Urine Clear; Color Urine Yellow; Glucose Urine UA Negative (Negative); Leukocyte Esterase Urine Negative (Negative); Nitrite Urine Negative (Negative); PH 7.5 (5.0-9.0); Urine Blood Negative (Negative); Urine Ketones Negative (Negative); Urine Protein Negative (Neg-Trace)
[2023-04-29 10:24] LABS: Alanine Aminotransferase 12 U/L (0-31); Albumin Level 3.6 g/dL (3.5-5.0); Alkaline Phosphatase 45 U/L (39-117); Anion Gap 8 (12-20); Aspartate Amino Transferase 17 U/L (5-31); Bilirubin Total 0.3 mg/dL (0.0-1.0); Blood Urea Nitrogen 15 mg/dL (9-16); Calcium 8.6 mg/dL (8.4-10.2); Carbon Dioxide 23 mmol/L (22-29); Chloride 112 mmol/L (96-108); Cholesterol 116 mg/dL (<200); Estimated Glomerular Filt Rate > 60; Glucose Fasting 79 mg/dL (60-99); HDL Cholesterol 49 mg/dL (>40); LDL Cholesterol Calculated 49 mg/dL (<100); Potassium 4.2 mmol/L (3.3-5.1); Sodium 139 mmol/L (135-145); Total Protein 6.9 g/dL (6.5-8.0); Triglycerides 92 mg/dL (<150)
[2023-04-29 10:38] LABS: Creatinine Urine 132.41 mg/dL; Microalbum/Creatinine Ratio Ur 5.2 ug/mg cr (<30)
[2023-04-29 10:38] LABS: Thyroid Stimulating Hormone 2.02 uIU/mL (0.32-4.0)
== END 2023-04-29 08:24 | disposition home or self-care (01) ==
LOC: HO.LAB 08:23
PROVIDERS: PCP Internal Medicine; Visit Provider Internal Medicine
DX: I10 Essential (primary) hypertension (principal); R30.0 Dysuria; E03.9 Hypothyroidism, unspecified; E11.9 Type 2 diabetes mellitus without complications; E78.00 Pure hypercholesterolemia, unspecified
CPT/HCPCS: 36415; 80053; 80061; 81003; 82043; 82570; 83036; 84439; 84443; 85025

== ENCOUNTER 2023-05-15 10:40 | Outpatient (AMB) | payer MEDICARE, MEDICAID, SELFPAY ==
[2023-05-15 10:43] VITALS: BP 110/68; PULSE 66; O2SAT 98; BMI 31.6
--- NOTE | 2023-05-15 10:43 | A.OFFPC_ITS ---
Vital Signs 05/15/23 10:43 Height 5 ft Weight 162 lb 0.6 oz BMI 31.6 BP 110/68 Blood Pressure Location Lt brachial Position Sitting Pulse 66 Pulse Source Pulse Oximeter Pulse Oximetry (%) 98 Oxygen Delivery Method Room Air Intake Visit Reasons: hyperlipidemia Intake Note: Patient is here to follow up on hyperlipidemia Rehab Care Assistant Required: No Allergies lisinopril [LISINOPRIL] Allergy (Severe, Verified 05/15/23 11:09) ANAPYHLAXIS, swelling metformin [METFORMIN] Allergy (Severe, Verified 05/15/23 11:09) ANAPHYLAXIS, diarrhea sumatriptan [From IMITREX] Allergy (Severe, Verified 05/15/23 11:09) ANAPHYLAXIS, sedation Medication List - Last Reconciled 05/15/23 by Juve Crawford MD acarbose 100 mg PO TID alcohol swabs (Alcohol Pads) 1 pad topical TID 30 days alprazolam 1 mg PO TID PRN bisacodyl 5 - 10 mg (1 - 2 x 5 mg) PO BEDTIME 90 days blood sugar diagnostic (FreeStyle Lite Strips) test blood sugar once a day as instructed - frequent low blood sugar readings blood-glucose meter (FreeStyle Lite Meter kit) As directed once a day cetirizine 10 mg PO DAILY PRN 90 days clonidine HCl 0.1 mg PO DAILY cyanocobalamin (vitamin B-12) 500 mcg sublingual daily, saturday - saturday; 30 days dexlansoprazole 60 mg PO DAILY dicyclomine 20 mg PO QID PRN ferrous sulfate 325 mg PO DAILY fluticasone propionate 50 mcg/actuation 1 spray intranasal DAILY hydrocortisone 2.5% (Proctosol HC) 1 appl OK BID ibuprofen 800 mg PO TID PRN 30 days ipratropium bromide 1 spray intranasal BID lancets (FreeStyle Lancets) test blood sugar once as instructed - frequent LOW blood sugar readings levonorgestrel (Mirena) 1 device intrauterine ONCE levothyroxine 50 mcg PO DAILY 90 days linaclotide (Linzess) 290 mcg PO DAILY 30 days melatonin 5 - 10 mg PO BEDTIME PRN meloxicam 15 mg PO DAILY metoclopramide HCl (Reglan) 10 mg PO QIDACHS mometasone 0.1% 1 appl topical DAILY PRN napktbnniext-xkce-qckua acid 18-400 mg-mcg (Certavite-Antioxidant) 1 tab PO DAILY oxybutynin chloride ER 10 mg PO DAILY pyridoxine (vitamin B6) 100 mg PO DAILY rosuvastatin (Crestor) 5 mg PO DAILY simethicone 180 mg PO QID 30 days topiramate 100 mg PO BEDTIME 90 days tramadol 1 tablet 1 to 2 times a day orally ONLY NEEDED for SEVERE PAIN; 30 days Tobacco use date assessed: 05/15/23 Dental Screening Dental Screen Date: 05/15/23 HPI hyperlipidemia HPI Details Patient comes in today for her follow up visit States that she feels okay She denies any headaches or dizziness Denies any chest pains, no SOB No nausea/vomiting, no abdominal pain No change in bowel habits noted States that her joint pains are adequately controlled on her current Rx Needs a few of her Rx refilled Had her follow up labs done a couple of weeks ago - to discuss her results [facility] Medical History Hypothyroidism (acquired) Renal calculi Anemia Vitamin D deficiency Pure hypercholesterolemia Obesity (BMI 30-39.9) Costochondritis Lumbar degenerative disc disease Migraine Allergic rhinitis Diabetes mellitus Occipital neuralgia of left side Chronic pain syndrome Spondylosis of cervical spine without myelopathy Type 2 diabetes mellitus in remission Arthritis EKG abnormalities Anal fissure Renal stones Gastroparesis Hepatomegaly Leukocytosis MIO on CPAP Insomnia Anxiety Constipation GERD (gastroesophageal reflux disease) B12 deficiency Proteinuria Type 2 diabetes mellitus with other diabetic kidney complication Dyslipidemia Hypoglycemia after GI (gastrointestinal) surgery Surgical History H/O colonoscopy H/O gastric bypass History of tubal ligation Hx of lithotripsy History of umbilical hernia Hx of section History of esophagogastroduodenoscopy (EGD) Hx of bilateral breast reduction surgery Hx of cholecystectomy Family History Father Liver cancer Hypertension Diabetes mellitus CVD (cardiovascular disease) Liver failure Mother Hypercholesterolemia Breast cancer Asthma Depression Maternal Grandmother Diabetes mellitus Hypertension Paternal Grandmother Diabetes mellitus Hypertension Social History Household Members: Significant Other Housing: House Alcohol intake: never Patient Tobacco Use Status: Never used Tobacco e-Cigarette/Vaping Use: Never Used Second Hand Smoke Exposure: Yes service: No Current occupational status: disabled Cognitive needs: No Hearing needs: No Vision needs: Yes Female Reproductive History Menstrual Age of Menarche: 11 Questionnaire PHQ-9 Over the last 2 weeks, how often have you been bothered by any of the following problems? 1. Little interest or pleasure in doing things: not at all 2. Feeling down, depressed, or hopeless: not at all 3. Trouble falling or staying asleep, or sleeping too much: not at all 4. Feeling tired or having little energy: not at all 5. Poor appetite or overeating: not at all 6. Feeling bad about yourself - or that you are a failure or have let yourself or your family down: not at all 7. Trouble concentrating on things, such as reading the newspaper or watching television: not at all 8. Moving or speaking so slowly that other people could have noticed. Or the opposite - being so fidgety or restless that you have been moving around a lot more than usual: not at all 9. Thoughts that you would be better off or of hurting yourself in some way: not at all Total score: 0 Depression Screening Interpretation: Negative Depression Screening Done: Yes 78802 - PHQ-9 Billing: Yes Source: Developed by Drs. Arthur Duran, Amira Brownlee, Nikos Pelayo and colleagues, with an educational beatriz from [employer] Thrive Questionnaire Date Thrive assessed: 05/15/23 I am a: Patient What is your living situation today?: I have a steady place to live Within the past 12 months, did the food you bought not last and you didn't have the money to get more?: Never true Within the past 12 months, did you worry whether your food would run out before you got money to buy more?: Never true Do you have trouble paying for medicines?: No Do you have trouble getting transportation to medical appointments?: No Do you have trouble paying your heating and electricity bill?: No Do you have trouble taking care of your child, family member or friend?: No Do you have trouble with day-to-day activities such as bathing, preparing meals, shopping, managing finances, etc.?: No Are you currently unemployed and looking for a job?: No Are you interested in more education?: No Please select the resources that you would like help with: None Currently or been in a relationship where the following occur: no concerns reported THRIVE Score: 0 AUDIT C Alcohol Use Questionnaire (AUDIT-C) 1. How often do you have a drink containing alcohol?: Never 3. How often do you have six or more drinks on one occasion?: Never Total Score: 0 Score Reviewed/Action Taken: Yes SUSAN-7 AMB Questionnaire SUSAN-7 Date SUSAN - 7 assessed: 05/15/23 Source: Developed by Drs. Arthur Duran, Amira Brownlee, Nikos Pelayo and colleagues, with an educational beatriz from [employer] Review of Systems Const Denies chills, Denies fatigue, Denies fever(s) and Denies headache(s) (controlled) ENT Denies dysphagia, Denies dizziness, Denies otalgia, Denies headache(s) (controlled), Reports neck pain, Denies odynophagia and Denies sore throat Card Denies chest pain, Denies lightheadedness, Denies palpitations and Denies dyspnea Resp Denies chest congestion, Denies cough, Denies dyspnea and Denies wheezing GI Denies abdominal pain, Reports constipation (chronic), Denies dysphagia, Denies diarrhea, Denies nausea, Denies odynophagia and Denies vomiting Denies difficulty voiding, Denies nocturia, Denies dysuria and Denies urinary urgency Musc Reports back pain (chronic), Reports neck pain, Reports radiating pain into limb (down right leg and into the foot) and Denies tingling Skin/Breast Denies rash Neuro Denies dizziness, Denies headache(s) (controlled) and Denies tingling Endo Denies fatigue and Denies palpitations Aller/Immun Denies wheezing Physical exam (Primary Care) Vital Signs: Last Vital Signs Pulse 66 05/15/23 10:43 BP 110/68 05/15/23 10:43 Pulse Ox 98 05/15/23 10:43 Oxygen Delivery Method Room Air 05/15/23 10:43 BMI result Body Mass Index 31.6 Tobacco/Smoking Status: Tobacco use Status Tobacco use date assessed 05/15/23 05/15/23 10:44 Patient Tobacco Use Status Never used Tobacco 05/15/23 10:44 e-Cigarette/Vaping Use Never Used 05/15/23 10:44 Depression Screening Interpretation: Negative Thrive Assessment: Date of Thrive Assessment Date Thrive assessed 05/15/23 05/15/23 10:44 Currently or been in a relationship where the following occur: no concerns reported Const General: no acute distress and alert HENMT Ears: TM's normal bilaterally and EAC's normal Throat: Yes posterior oropharynx normal and Yes tonsils normal (no TP congestion noted) Neck Neck: Yes no lymphadenopathy and Yes supple Resp Auscultation: clear to auscultation bilaterally, no rales and no wheezes Cardio Rate: regular rate Rhythm: regular rhythm Heart sounds: no murmurs GI Palpation (GI): Soft to palpation and nontender Auscultation: normal bowel sounds General: Yes no CVA tenderness Back/Spine/Pelvis Back: no CVA tenderness Cervical Spine: Cervical spine tenderness Thoracic/Lumbar Spine: paraspinal muscle tenderness on the right in the upper lumbar, in the mid lumbar and in the lower lumbar and lumbar spinal tenderness Skin Rashes: no rashes Extrem General: Yes no clubbing, cyanosis or edema Results Reviewed Results Reviewed: Laboratory Tests 04/29/23 04/29/23 04/29/23 08:45 08:47 08:47 WBC 8.5 Hgb 10.8 L Hct 33.8 L Plt Count 280 Sodium 139 Potassium 4.2 Creatinine 0.74 Estimated GFR > 60 Fasting Glucose 79 Hemoglobin A1c % 4.9 Calcium 8.6 D AST 17 ALT 12 Triglycerides 92 Cholesterol 116 LDL Cholesterol, Calc 49 HDL Cholesterol 49 TSH 2.02 Free T4 0.80 Ur Specific [place] 1.020 Urine Protein Negative Urine Glucose (UA) Negative Urine Blood Negative Urine Nitrite Negative Ur Leukocyte Esterase Negative Microalb/Creat Ratio 5.2 Assessment and Plan Assessment & Plan (1) Pure hypercholesterolemia: Code(s): E78.00 - Pure hypercholesterolemia, unspecified Plan: Results of her labs done a couple of weeks ago reviewed and discussed with patient Reinforced low cholesterol diet Continue Rosuvastatin 5 mg QD Will recheck her labs and fasting lipids in 3 months for follow up (2) Diabetes mellitus: Code(s): E11.9 - Type 2 diabetes mellitus without complications Qualifiers: Diabetes mellitus type: type 2 Diabetes mellitus correction insulin use: without truck terminal manager use Diabetes mellitus complication status: without complication Qualified Code(s): E11.9 - Type 2 diabetes mellitus without complications Plan: HgbA1c remains normal at 4.9% on her labs done a couple of weeks ago; was at 5.0% previously a few months ago - goal is <6.5% Reinforced diabetic diet Continue Acarbose 100 mg TID Follow up with endocrinology as needed - has reportedly been advised by endocrinology that since her diabetes has been very well controlled, she can just follow up with her PCP and see them only on an as-needed basis (3) Hypothyroidism (acquired): Code(s): E03.9 - Hypothyroidism, unspecified Plan: TFTs remained normal on her recent labs Continue Levothyroxine 50 mcg QD Will continue to monitor her TFTs regularly (4) Migraine: Code(s): G43.909 - Migraine, unspecified, not intractable, without status migrainosus Qualifiers: Migraine type: unspecified Status migrainosus presence: without status migrainosus Intractability: not intractable Qualified Code(s): G43.909 - Migraine, unspecified, not intractable, without status migrainosus Plan: Stable on prophylactic Tx - continue Topiramate 100 mg Q HS Reinforced avoidance of potential migraine triggers (5) Chronic idiopathic constipation: Code(s): K59.04 - Chronic idiopathic constipation Plan: Reinforced increased oral fluids and dietary fiber Continue Linzess 290 mcg QD Follow up with GI as scheduled S/P screening colonoscopy recently on 11/08/22 - recommend repeat colonoscopy in 2 to 3 years due to suboptimal prep (6) GERD (gastroesophageal reflux disease): Code(s): K21.9 - Gastro-esophageal reflux disease without esophagitis Qualifiers: Esophagitis presence: without esophagitis Qualified Code(s): K21.9 - Gastro-esophageal reflux disease without esophagitis Plan: Dietary restrictions reinforced Continue Omeprazole 40 mg QD Follow up with GI as scheduled (7) Anemia: Code(s): D64.9 - Anemia, unspecified Qualifiers: Anemia type: unspecified type Qualified Code(s): D64.9 - Anemia, unsp ecified Plan: Patient is still mildly anemic but her H/H have remained stable Continue Ferrous sulfate 325 mg QD and Vitamin B12 1000 mcg QD Will continue to monitor her CBC regularly Follow up with hematology as scheduled (8) B12 deficiency: Code(s): E53.8 - Deficiency of other specified B group vitamins Plan: Corrected - continue Vitamin B12 tablets 1000 mcg QD (9) Vitamin D deficiency: Code(s): E55.9 - Vitamin D deficiency, unspecified Plan: Continue OTC Vitamin D supplements daily (10) Allergic rhinitis: Code(s): J30.9 - Allergic rhinitis, unspecified Qualifiers: Allergic rhinitis trigger: unspecified Allergic rhinitis seasonality: unspecified Qualified Code(s): J30.9 - Allergic rhinitis, unspecified Plan: Continue Fluticasone 50 mcg nasal spray QD PRN and Cetirizine 10 mg QD PRN (11) Lumbar degenerative disc disease: Code(s): M51.36 - Other intervertebral disc degeneration, lumbar region Plan: Reinforced activity and weight-lifting restrictions to minimize aggravating her low back pain Repeat lumbar spine x-rays done in April 2021 revealed (+) chronic changes of lumbar spine DDD Was sent for lumbar spine MRI for further evaluation but patient reportedly missed her appt and has not rescheduled Continue Ibuprofen 800 mg TID with food PRN for pain and Tramadol 50 mg 1 to 2 times a day ONLY as needed for SEVERE pain - Rx refilled (12) Spondylosis of cervical spine without myelopathy: Code(s): M47.812 - Spondylosis without myelopathy or radiculopathy, cervical region Plan: Was seen by pain management a few months ago and recommended physical therapy and other modalities to help with her neck pain; recommended NO opioids as they do not think patient's current symptoms warrant Tx with long-term opioids She has been reportedly advised to follow up with them only on an as needed basis (13) Insomnia: Code(s): G47.00 - Insomnia, unspecified Qualifiers: Insomnia type: unspecified Qualified Code(s): G47.00 - Insomnia, unspecified Plan: Sleep hygiene reinforced Continue Amitriptyline 25 mg Q HS (14) Anxiety: Code(s): F41.9 - Anxiety disorder, unspecified Plan: Continue Alprazolam 1 mg TID PRN Follow up with psychiatry as scheduled (15) Obesity (BMI 30-39.9): Code(s): E66.9 - Obesity, unspecified Plan: Reinforced diet/exercise as tolerated/lose weight Plan Follow up in 3 months Orders: Orders Complete Blood Count Auto Diff 3 Months D64.9 - Anemia, unspecified IRON PROFILE 3 Months D50.9 - Iron deficiency anemia, unspecified Vitamin D 25-OH Total 3 Months E55.9 - Vitamin D deficiency, unspecified Hemoglobin A1c 3 Months E11.9 - Type 2 diabetes mellitus without complications Comprehensive [place]. Panel Fast 3 Months E78.00 - Pure hypercholesterolemia, unspecified TSH reflex Free T4 3 Months E78.00 - Pure hypercholesterolemia, unspecified UA CC w/rflx Micro + Cult 3 Months R30.0 - Dysuria Lipid Panel 3 Months E78.00 - Pure hypercholesterolemia, unspecified Microalbumin, Random (w Creat) 3 Months E11.9 - Type 2 diabetes mellitus without complications Vitamin B12 and Folate 3 Months E53.8 - Deficiency of other specified B group vitamins Reticulocyte Count 3 Months D64.9 - Anemia, unspecified Medications: Refilled ibuprofen TAKE WITH FOOD 800 mg PO TID 30 days PRN 90 tabs 3RF fever or pain tramadol 1 tablet 1 to 2 times a day orally ONLY NEEDED for SEVERE PAIN; 30 days 30 tabs 0RF pain 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 [Tietze] levothyroxine 50 mcg PO DAILY 90 days 90 tabs 1RF E03.9 - Hypothyroidism, unspecified Coding Level of Care Code Est Pt Level 4 (43492) Diagnoses Pure hypercholesterolemia E78.00 Type 2 diabetes mellitus without complication, without long-term current use of insulin E11.9 Diabetes mellitus type: type 2 Diabetes mellitus correction insulin use: without correction use Diabetes mellitus complication status: without complication Hypothyroidism (acquired) E03.9 Migraine without status migrainosus, not intractable, unspecified migraine type G43.909 Migraine type: unspecified Status migrainosus presence: without status migrainosus Intractability: not intractable Chronic idiopathic constipation K59.04 Gastroesophageal reflux disease without esophagitis K21.9 Esophagitis presence: without esophagitis Anemia, unspecified type D64.9 Anemia type: unspecified type B12 deficiency E53.8 Vitamin D deficiency E55.9 Allergic rhinitis, unspecified seasonality, unspecified trigger J30.9 Allergic rhinitis trigger: unspecified Allergic rhinitis seasonality: unspecified Lumbar degenerative disc disease M51.36 Spondylosis of cervical spine without myelopathy M47.812 Insomnia, unspecified type G47.00 Insomnia type: unspecified Anxiety F41.9 Obesity (BMI 30-39.9) E66.9
== END 2023-05-15 11:22 | disposition home or self-care (01) ==
PROVIDERS: PCP Internal Medicine; Visit Provider Internal Medicine
DX: E78.00 Pure hypercholesterolemia, unspecified (principal); E11.9 Type 2 diabetes mellitus without complications; E66.9 Obesity, unspecified; Z68.31 Body mass index [BMI] 31.0-31.9, adult; E03.9 Hypothyroidism, unspecified; G43.909 Migraine, unspecified, not intractable, without status migrainosus; K59.04 Chronic idiopathic constipation; K21.9 Gastro-esophageal reflux disease without esophagitis; D64.9 Anemia, unspecified; E53.8 Deficiency of other specified B group vitamins; E55.9 Vitamin D deficiency, unspecified; J30.9 Allergic rhinitis, unspecified
CPT/HCPCS: 99214

== ENCOUNTER 2023-05-31 10:25 | Outpatient (REF) | payer MEDICARE, MEDICAID, SELFPAY ==
--- NOTE | ~2023-05-31 | MM_ITS ---
EXAMINATION: MM DIAGNOSTIC DIGITAL BREAST TOMOSYNTHESIS, BILATERAL CLINICAL INFORMATION: Six-month follow-up (for one-year stability) one view asymmetry left CC view medial aspect. No ultrasound correlate seen . Patient has history of breast reduction in 2001. Patient also due for bilateral screening. COMPARISON: Mammography: 11/27/2022, 05/25/2022, 05/09/2022 (BI-RADS 0), 04/20/2021, 03/28/2020, and dating back to 2018. Left breast ultrasound 05/25/2022. TECHNIQUE: Digital breast tomosynthesis is performed in both the craniocaudal and mediolateral oblique views along with computer-aided detection (CAD). Synthesized 2D images are generated from the tomosynthesis. A full-field 3-D left ML view was also obtained. FINDINGS: There are scattered areas of fibroglandular density (ACR BI-RADS breast composition Category b). There is redemonstration of the 1 view asymmetry in the medial left breast, CC view only, without MLO or ML correlate. It is stable and unchanged. On tomographic images, this again has the appearance of summation artifact/superimposition artifact, has some component of a tortuous vessel, and remains likely secondary to scarring/superimposition artifact and remains probably benign. Otherwise, no suspicious developing mass, architectural distortion, or suspicious grouped calcifications identified in either breast. No skin changes or axillary pathology seen. MM/MM tomosynthesis diagnostic BI IMPRESSION: No findings in either breast suspicious for malignancy. Stable 1 view asymmetric density medial left breast CC projection, without MLO, MLO, or ultrasound correlate. This remains stable and is most consistent with summation artifact of an area of parenchymal scarring. One-year follow-up when the patient is due for bilateral screening mammography recommended to establish two-year stability. ASSESSMENT: BI-RADS BI-RADS 3 - Probably benign finding(s) - 12 month follow-up suggested RECOMMENDATION: 12 month diagnostic follow up Results were provided to the patient at time of visit by the technologist. This patient's information was entered into a reminder system with a target due date for their next mammogram.
== END 2023-05-31 10:26 | disposition home or self-care (01) ==
LOC: HO.MAMMO 10:25
PROVIDERS: PCP Internal Medicine; Visit Provider Internal Medicine
DX: N64.89 Other specified disorders of breast (principal)
CPT/HCPCS: 77062; 77066

== ENCOUNTER → 2023-05-31 11:00 | Outpatient (BNV) | payer MEDICARE, MEDICAID, SELFPAY | PROVIDERS: PCP Internal Medicine; Visit Provider Radiology Diagnostic Radiology | DX: R92.8 Other abnormal and inconclusive findings on diagnostic imaging of breast (principal) | CPT/HCPCS: 77066; G0279 ==

== ENCOUNTER 2023-07-13 08:26 | Emergency (ER) | payer MEDICARE, MEDICAID, SELFPAY ==
[2023-07-13 08:31] VITALS: BP 130/61; PULSE 79; RESP 16; TEMP 36.7; O2SAT 98; BMI 31.6
--- NOTE | 2023-07-13 09:08 | ED.URI ---
HPI - URI/Sore Throat General Chief Complaint: Skin/Abscess/Foreign Body Stated Complaint: bump inside nose headache Time Seen by Provider: 07/13/23 08:41 Source: patient and family Mode of arrival: ambulatory Limitations: no limitations History of Present Illness HPI Narrative: 47-year-old female presents to the ER for evaluation of right-sided facial pain and pain inside of her right nostril. Patient reports the pain has been there for a couple of days and is getting worse. She states she thinks there is a bump inside of her nose that is causing pain to the rest of her face. She states it hurts when she opens and closes her mouth. It hurts when she touches her right cheek. No facial swelling. She does have some nasal discharge and sinus pressure. She has headache on the right side of her face. No weakness, numbness, tingling in the face. She denies any toothache although has poor dentition. MD elicited complaint: sinus pain Onset (ago): day(s) Consistency: progressively worsening Severity: moderate Able to tolerate fluids by mouth: Yes Exacerbating factors: other (Palpation and opening of the mouth) Related Data Home Medications ?Medication ?Instructions ?Recorded ?Confirmed alprazolam 1 mg tablet 1 mg PO TID PRN Anxiety 02/10/20 05/15/23 clonidine HCl 0.1 mg tablet 0.1 mg PO DAILY anxiety 01/02/21 05/15/23 levonorgestrel 21 mcg/24 hours (8 1 device intrauterine ONCE 02/19/22 05/15/23 yrs) 52 mg intrauterine device (Mirena) ipratropium bromide 42 mcg (0.06 1 spray intranasal BID 05/23/22 05/15/23 %) nasal spray melatonin 5 mg tablet 5 - 10 mg PO BEDTIME PRN insomnia 05/23/22 05/15/23 multivitamin-ferrous 1 tab PO DAILY 09/11/22 05/15/23 fumarate-folic acid 18 mg-400 mcg tablet (Certavite-Antioxidant) Previous Rx's ?Medication ?Instructions ?Recorded blood-glucose meter (FreeStyle #1 ea 03/15/22 Lite Meter kit) cyanocobalamin (vitamin B-12) 500 500 mcg sublingual .COMPLEX 30 07/03/22 mcg sublingual tablet days #20 tabs ferrous sulfate 325 mg (65 mg 325 mg PO DAILY #60 tabs 07/04/22 iron) tablet blood sugar diagnostic (FreeStyle #100 ea 08/15/22 Lite Strips) lancets 28 gauge (FreeStyle #100 ea 08/15/22 Lancets) mometasone 0.1 % topical cream 1 appl topical DAILY PRN rash #45 09/25/22 grams topiramate 100 mg tablet 100 mg PO BEDTIME 90 days #90 tabs 10/24/22 dexlansoprazole 60 mg 60 mg PO DAILY #30 caps 11/28/22 capsule,biphase delayed release dicyclomine 20 mg tablet 20 mg PO QID PRN for abdominal 11/28/22 pain #360 tabs hydrocortisone 2.5 % topical cream 1 appl HI BID hemorrhoids #30 grams 11/28/22 with perineal applicator (Proctosol HC) linaclotide 290 mcg capsule 290 mcg PO DAILY 30 days #30 caps 11/28/22 (Linzess) metoclopramide HCl 10 mg tablet 10 mg PO QIDACHS Nausea #120 tabs 11/28/22 (Reglan) simethicone 180 mg capsule 180 mg PO QID 30 days #120 caps 11/28/22 cetirizine 10 mg tablet 10 mg PO DAILY PRN Allergy 12/21/22 Symptoms 90 days #90 tabs fluticasone propionate 50 1 spray intranasal DAILY #48 mL 01/17/23 mcg/actuation nasal spray,suspension oxybutynin chloride 10 mg 10 mg PO DAILY #90 tabs 01/17/23 tablet,extended release 24 hr pyridoxine (vitamin B6) 100 mg 100 mg PO DAILY #90 tabs 01/17/23 tablet alcohol swabs (Alcohol Pads) 1 pad topical TID 30 days #100 ea 05/06/23 ibuprofen 800 mg tablet 800 mg PO TID PRN fever or pain 30 05/15/23 days #90 tabs levothyroxine 50 mcg tablet 50 mcg PO DAILY 90 days #90 tabs 05/15/23 meloxicam 15 mg tablet 15 mg PO DAILY #30 tabs 06/18/23 bisacodyl 5 mg tablet,delayed 5 - 10 mg (1 - 2 x 5 mg) PO 06/19/23 release (Laxative (bisacodyl)) BEDTIME for constipation #60 tabs rosuvastatin 5 mg tablet 5 mg PO DAILY #90 tabs 07/04/23 acarbose 100 mg tablet 100 mg PO TID #90 tabs 07/06/23 tramadol 50 mg tablet See Rx Instructions .Route 07/11/23 .COMPLEX pain 30 days #30 tabs amoxicillin 875 mg-potassium 1 tab PO BID #14 tabs 07/13/23 clavulanate 125 mg tablet ibuprofen 600 mg tablet 600 mg PO Q8H PRN pain #14 tabs 07/13/23 Allergies Allergy/AdvReac Type Severity Reaction Status Date / Time lisinopril [LISINOPRIL] Allergy Severe ANAPYHLAXIS, Verified 07/13/23 08:33 swelling metformin [METFORMIN] Allergy Severe ANAPHYLAXIS, Verified 07/13/23 08:33 diarrhea sumatriptan [From IMITREX] Allergy Severe ANAPHYLAXIS, Verified 07/13/23 08:33 sedation Review of Systems Review of Systems: Yes all other systems are reviewed and are negative PMFSH Past Medical History Medical History Hypothyroidism (acquired) Renal calculi Anemia Vitamin D deficiency Pure hypercholesterolemia Obesity (BMI 30-39.9) Costochondritis Lumbar degenerative disc disease Migraine Allergic rhinitis Diabetes mellitus Occipital neuralgia of left side Chronic pain syndrome Spondylosis of cervical spine without myelopathy Type 2 diabetes mellitus in remission Arthritis EKG abnormalities Anal fissure Renal stones Gastroparesis Hepatomegaly Leukocytosis MIO on CPAP Insomnia Anxiety Constipation GERD (gastroesophageal reflux disease) B12 deficiency Proteinuria Type 2 diabetes mellitus with other diabetic kidney complication Dyslipidemia Hypoglycemia after GI (gastrointestinal) surgery Surgical History H/O colonoscopy H/O gastric bypass History of tubal ligation Hx of lithotripsy History of umbilical hernia Hx of section History of esophagogastroduodenoscopy (EGD) Hx of bilateral breast reduction surgery Hx of cholecystectomy Family History Family History Father Liver cancer Hypertension Diabetes mellitus CVD (cardiovascular disease) Liver failure Mother Hypercholesterolemia Breast cancer Asthma Depression Maternal Grandmother Diabetes mellitus Hypertension Paternal Grandmother Diabetes mellitus Hypertension Social History Social History Household Members: Significant Other Housing: House Alcohol intake: never Patient Tobacco Use Status: Never used Tobacco e-Cigarette/Vaping Use: Never Used Second Hand Smoke Exposure: Yes Advance Directives: No Advance Directives Information Provided: No Do you have a plan to hurt others: No Plan service: No Current occupational status: disabled Cognitive needs: No Hearing needs: No Vision needs: Yes Physical Exam Vital Signs: Vital Signs: Last Vital Signs Temp 98.0 F 07/13/23 09:11 Pulse 79 07/13/23 09:11 Resp 16 07/13/23 09:11 BP 130/61 07/13/23 09:11 Pulse Ox 98 07/13/23 09:11 O2 Del Method Room Air 07/13/23 09:11 BMI result Body Mass Index 31.6 Appearance: Alert. Oriented X3. No acute distress. HEENT: normal external inspection, no facial swelling. inside of the right nare w/ erythematous nasal turbinates and mild swelling. tenderness of right maxiallary sinus. poor dentition w/ multiple broken teeth. no gingival tenderness or swelling, no fluctuance. no trismus CVS: Normal heart rate and rhythm. Pulses normal. Respiratory: No respiratory distress. Lungs CTAB Skin: Skin warm and dry. Normal skin color. Normal skin turgor. No rashes. Extremities: normal inspection x4 Neuro: Oriented X 3. No motor deficit. No sensory deficit. Medical Decision Making Medical Decision Making MDM Narrative: 47 yo female presenting with right sided facial pain, headache, right nasal pain. exam c/w sinusitis. no abscess or lesion visualized in the nose no fevers or denal pain, no facial swelling will treat w/ po abx Differential Diagnosis Differential Diagnoses: The differential diagnosis associated with the presentation includes sinusitis, dental abscess, nasal abscess, facial cellulitis External Record Review External record reviewed: Outpatient record and Prior outpatient labs Prescription Management I considered prescription management with: Pain Medication and Antibiotic Critical Care Time Critical Care Time Critical Care Time: No Discharge Plan Discharge Clinical Impression: Sinusitis Qualifiers: Sinusitis location: other Chronicity: acute Recurrence: non-recurrent Qualified Code(s): J01.80 - Other acute sinusitis Patient Disposition: Home, Self-Care Instructions: Sinusitis (ED) Additional Instructions: Take the prescribed antibiotics as directed, complete the entire course and do not miss any doses Take the prescribed anti-inflammatory as needed If you develop new or worsening symptoms call 911 or come back to the ER for further evaluation. Prescriptions: New amoxicillin-pot clavulanate 875-125 mg tablet 1 tab PO BID Qty: 14 0RF ibuprofen 600 mg tablet 600 mg PO Q8H PRN (Reason: pain) Qty: 14 0RF No Action (DME) blood-glucose meter [FreeStyle Lite Meter] Kit See Rx Instructions .ROUTE .MEDSUPPLY Qty: 1 0RF Rx Instructions: As directed once a day cyanocobalamin (vitamin B-12) 500 mcg tablet, sublingual 500 mcg sublingual .COMPLEX 30 Days Qty: 20 11RF Rx Instructions: 500 mcg sublingual daily, saturday - saturday; (DME) FreeStyle Lite Strips Strip See Rx Instructions .ROUTE .MEDSUPPLY Qty: 100 12RF Rx Instructions: test blood sugar once a day as instructed - frequent low blood sugar readings (DME) lancets [FreeStyle Lancets] 28 gauge misc See Rx Instructions .ROUTE .MEDSUPPLY Qty: 100 12RF Rx Instructions: test blood sugar once as instructed - frequent LOW blood sugar readings mometasone 0.1 % cream 1 appl topical DAILY PRN (Reason: rash) Qty: 45 1RF cetirizine 10 mg tablet 10 mg PO DAILY PRN (Reason: Allergy Symptoms) 90 Days Qty: 90 1RF fluticasone propionate 50 mcg/actuation spray,suspension 1 spray intranasal DAILY Qty: 48 1RF alcohol swabs [Alcohol Pads] Pads, Medicated 1 pad topical TID 30 Days Qty: 100 12RF meloxicam 15 mg tablet 15 mg PO DAILY Qty: 30 0RF bisacodyl [Laxative (bisacodyl)] 5 mg tablet,delayed release (DR/EC) 5 - 10 mg PO BEDTIME Qty: 60 1RF rosuvastatin 5 mg tablet 5 mg PO DAILY Qty: 90 3RF acarbose 100 mg tablet 100 mg PO TID Qty: 90 3RF Rx Instructions: 1/2 tab breakfast, 1 tab lunch and dinner, 1/2 tab for hs snack PO 4 times a day; tramadol 50 mg tablet See Rx Instructions .ROUTE .COMPLEX 30 Days Qty: 30 0RF Rx Instructions: 1 tablet 1 to 2 times a day orally ONLY NEEDED for SEVERE PAIN; ferrous sulfate 325 mg (65 mg iron) Tablet 325 mg PO DAILY Qty: 60 2RF Certavite-Antioxidant 18-400 mg-mcg Tablet 1 tab PO DAILY alprazolam 1 mg tablet 1 mg PO TID PRN (Reason: Anxiety) levothyroxine 50 mcg tablet 50 mcg PO DAILY 90 Days Qty: 90 1RF ibuprofen 800 mg tablet 800 mg PO TID PRN (Reason: fever or pain) 30 Days Qty: 90 3RF Rx Instructions: TAKE WITH FOOD topiramate 100 mg tablet 100 mg PO BEDTIME 90 Days Qty: 90 1RF clonidine HCl 0.1 mg tablet 0.1 mg PO DAILY Mirena 20 mcg/24 hours (8 yrs) 52 mg intrauterine device 1 device intrauterine ONCE Qty: 1 0RF Mirena 20 mcg/24 hours (8 yrs) 52 mg intrauterine device 1 device intrauterine ONCE melatonin 5 mg tablet 5 - 10 mg PO BEDTIME PRN (Reason: insomnia) ipratropium bromide 42 mcg (0.06 %) spray,non-aerosol 1 spray intranasal BID hydrocortisone [Proctosol HC] 2.5 % cream with perineal applicator 1 appl HI BID Qty: 30 6RF Rx Instructions: BE SURE TO INCLUDE RECTAL APPICATOR!! dexlansoprazole 60 mg capsule,biphase delayed releas 60 mg PO DAILY Qty: 30 6RF dicyclomine 20 mg tablet 20 mg PO QID PRN (Reason: for abdominal pain) Qty: 360 2RF Linzess 290 mcg capsule 290 mcg PO DAILY 30 Days Qty: 30 6RF metoclopramide HCl [Reglan] 10 mg tablet 10 mg PO QIDACHS Qty: 120 6RF simethicone 180 mg capsule 180 mg PO QID 30 Days Qty: 120 6RF Rx Instructions: after meals oxybutynin chloride 10 mg tablet extended release 24hr 10 mg PO DAILY Qty: 90 3RF pyridoxine (vitamin B6) 100 mg tablet 100 mg PO DAILY Qty: 90 3RF Interventions: ED Discharge Assessment Last Done: 07/13/23 09:11 Discharge Date/Time: 07/13/23 09:12 Print Language: Estonian
[2023-07-13 09:11] VITALS: BP 130/61; PULSE 79; RESP 16; TEMP 36.7; O2SAT 98
== END 2023-07-13 09:12 | disposition home or self-care (01) ==
PROVIDERS: Emergency Provider Student in an Organized Health Care Education/Training Program; PCP Internal Medicine
DX: J01.80 Other acute sinusitis (principal); E11.9 Type 2 diabetes mellitus without complications
CPT/HCPCS: 99282; 99283

== ENCOUNTER 2023-07-16 10:50 | Outpatient (AMB) | payer MEDICARE, MEDICAID, SELFPAY ==
--- NOTE | 2023-07-16 10:51 | A.OFFVIS_ITS ---
Vital Signs 07/16/23 10:58 Height 5 ft Weight 163 lb 2.273 oz BMI 31.9 BP 134/69 Blood Pressure Location Lt brachial Position Sitting Pulse 60 Intake Visit Reasons: Follow up constipation Intake Note: Patient in office today for a 6 months follow up of constipation. CC: Patient reports that she is doing well today and denies having any GI concerns. 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 Accompanied by: boyfriend Allergies lisinopril [LISINOPRIL] Allergy (Severe, Verified 07/13/23 08:33) ANAPYHLAXIS, swelling metformin [METFORMIN] Allergy (Severe, Verified 07/13/23 08:33) ANAPHYLAXIS, diarrhea sumatriptan [From IMITREX] Allergy (Severe, Verified 07/13/23 08:33) ANAPHYLAXIS, sedation HPI HPI Follow up constipation: Details: Assessment & Plan (1) GERD (gastroesophageal reflux disease): Code(s): K21.9 - Gastro-esophageal reflux disease without esophagitis Qualifiers: Esophagitis presence: without esophagitis Qualified Code(s): K21.9 - Gastro-esophageal reflux disease without esophagitis Plan: Thai #declines She did not like the go lytely, maybe next time a pill prep will be covered. The prep was insufficient, and her colon is longer than usual so we will have to consider a 2 day prep and repeat the procedure in 3 years. The procedure was well tolerated. The results were explained and the patient is agreeable to the follow-up interval as stated. The bowel pattern has returned to normal. Education was provided to tell any 1st degree relatives about their findings to be sure that they are screened by age 45. Educated that they will be put on a recall list when it is time for their repeat scope but should they move out of state or away from the hospital they will need to remember along with their pr imary to repeat the procedure in a timely fashion to avoid any adverse complications. She is c/o rectal itching intermittently likely r/t hemorrhoids. Will send proctosol cream. She continues on Dexilant, LInzess 290, bisacodyl, simethicone, reglan, and dicyclomine with good control of all of her GI conditions. ROV 6 mos. (2) Gastroparesis: Code(s): K31.84 - Gastroparesis (3) Chronic idiopathic constipation: Code(s): K59.04 - Chronic idiopathic constipation Medications: New hydrocortisone 2.5% (Proctosol HC) BE SURE TO INCLUDE RECTAL APPICATOR!! 1 appl NE BID 30 grams 6RF hemorrhoids K64.9 - Unspecified hemorrhoids dexlansoprazole 60 mg PO DAILY 30 caps 6RF Refilled metoclopramide HCl (Reglan) 10 mg PO QIDACHS 120 tabs 6RF Nausea K31.84 - Gastroparesis bisacodyl 5 - 10 mg (1 - 2 x 5 mg) PO BEDTIME 90 days 60 tabs 1RF constipation K59.04 - Chronic idiopathic constipation dicyclomine 20 mg PO QID PRN 360 tabs 2RF for abdominal pain linaclotide (Linzess) 290 mcg PO DAILY 30 days 30 caps 6RF K59.04 - Chronic idiopathic constipation simethicone after meals 180 mg PO QID 30 days 120 caps 6RF R14.0 - Abdominal distension (gaseous) TODAY'S VISIT Thai #declines She continues on Dexilant, LInzess 290, bisacodyl, simethicone, reglan, Proctosol cream and dicyclomine with good control of all of her GI conditions. The hemorrhoid cream really helped with the rectal itching. She will be due for colonoscopy in 2025 and will need 2 day prep. ROV 6 m os. [facility] Medical History Hypothyroidism (acquired) Renal calculi Anemia Vitamin D deficiency Pure hypercholesterolemia Obesity (BMI 30-39.9) Costochondritis Lumbar degenerative disc disease Migraine Allergic rhinitis Diabetes mellitus Occipital neuralgia of left side Chronic pain syndrome Spondylosis of cervical spine without myelopathy Type 2 diabetes mellitus in remission Arthritis EKG abnormalities Anal fissure Renal stones Gastroparesis Hepatomegaly Leukocytosis MIO on CPAP Insomnia Anxiety Constipation GERD (gastroesophageal reflux disease) B12 deficiency Proteinuria Type 2 diabetes mellitus with other diabetic kidney complication Dyslipidemia Hypoglycemia after GI (gastrointestinal) surgery Surgical History H/O colonoscopy H/O gastric bypass History of tubal ligation Hx of lithotripsy History of umbilical hernia Hx of section History of esophagogastroduodenoscopy (EGD) Hx of bilateral breast reduction surgery Hx of cholecystectomy Family History Father Liver cancer Hypertension Diabetes mellitus CVD (cardiovascular disease) Liver failure Mother Hypercholesterolemia Breast cancer Asthma Depression Maternal Grandmother Diabetes mellitus Hypertension Paternal Grandmother Diabetes mellitus Hypertension Social History Household Members: Significant Other Housing: House Alcohol intake: never Patient Tobacco Use Status: Never used Tobacco e-Cigarette/Vaping Use: Never Used Second Hand Smoke Exposure: Yes service: No Current occupational status: disabled Cognitive needs: No Hearing needs: No Vision needs: Yes Female Reproductive History Menstrual Age of Menarche: 11 Review of Systems Const Denies fatigue, Denies fever(s), Denies night sweats, Denies poor appetite and Denies weight loss ENT Reports Normal hearing present, Denies dental pain, Denies dysphagia, Denies hearing loss, Denies mouth pain, Denies odynophagia, Denies throat swelling, Denies tongue swelling and Reports other (Dentition adequate) Card Reports no additional complaints Resp Reports no additional complaints GI Details: Denies abdominal pain, Denies melena, Reports bloating, Denies hematochezia, Reports constipation, Denies GI cramping, Denies dysphagia, Denies excessive flatus, Reports early satiety, Reports heartburn, Denies diarrhea, Denies sudhakar sea, Denies odynophagia, Denies vomiting and Denies hematemesis Skin/Breast Denies pruritus, Denies lesions, Denies rash and Denies jaundice Neuro Reports Normal hearing present and Denies Abnormal speech present Endo Denies fatigue Aller/Immun Denies throat swelling and Denies tongue swelling Physical Exam Vital Signs: Last Vital Signs Pulse 60 07/16/23 10:58 BP 134/69 07/16/23 10:58 BMI result Body Mass Index 31.9 Const General: cooperative, no acute distress, well developed and well groomed Nutritional Appearance: well nourished and obese Orientation/consciousness: oriented to person, oriented to place and oriented to time Limitations: No language barrier HEENT Head: Yes normocephalic and Yes atraumatic Eyes General: appearance normal, both eyes and all related structures Pupils: Equal, round and reactive pupils present Neck Neck: Yes normal visual inspection and Yes no lymphadenopathy Thyroid: Thyroid normal Resp Effort & Inspection: normal respiratory effort and able to speak in complete sentences Auscultation: clear to auscultation bilaterally Cardio Rate: regular rate Rhythm: regular rhythm Heart sounds: Normal, physiologic split S2 sound present Peripheral pulses: radial pulses present and posterior tibial pulses present GI Inspection: No distended, No Abdominal panniculus present and Yes obesity Palpation (GI): Soft to palpation, nontender, no guarding, not rigid and No hepatosplenomegaly present Percussion: Yes normal to percussion Auscultation: normal bowel sounds Rectal Exam - Female: deferred Skin General skin exam: no rashes or lesions noted, turgor normal, skin not dry, no jaundice, No spider nevi and no striae Rashes: no rashes Nails: normal Neuro General: oriented to person, oriented to place and oriented to time Cranial nerves: Yes Equal, round and reactive pupils present and Yes Normal hearing present Speech: No Abnormal speech present Extrem General: Yes normal to inspection, No clubbing, No cyanosis and No edema Psych Appearance: grossly normal and well kempt Mental Status: mental status grossly normal Speech and movement: Normal speech and movement present Affect: normal affect Attitude: cooperative Thought process: Normal thought process present and not confabulating Thought content: Normal thought content present Insight: Limited insight present (Psych) Judgement: Limited judgement present (Psych) Assessment & Plan Assessment & Plan (1) Chronic idiopathic constipation: Code(s): K59.04 - Chronic idiopathic constipation Category: Medical (2) GERD (gastroesophageal reflux disease): Code(s): K21.9 - Gastro-esophageal reflux disease without esophagitis Category: Medical Qualifiers: Esophagitis presence: without esophagitis Qualified Code(s): K21.9 - Gastro-esophageal reflux disease without esophagitis Plan She continues on Dexilant, LInzess 290, bisacodyl, simethicone, reglan, Proctosol cream and dicyclomine with good control of all of her GI conditions. The hemorrhoid cream really helped with the rectal itching. She will be due for colonoscopy in 2025 and will need 2 day prep. ROV 6 m os. Medications: Refilled bisacodyl (Laxative (bisacodyl)) 5 - 10 mg (1 - 2 x 5 mg) PO BEDTIME 60 tabs 6RF for constipation K59.04 - Chronic idiopathic constipation hydrocortisone 2.5% (Proctosol HC) BE SURE TO INCLUDE RECTAL APPICATOR!! 1 appl NE BID 30 grams 6RF hemorrhoids K64.9 - Unspecified hemorrhoids linaclotide (Linzess) 290 mcg PO DAILY 30 caps 6RF 30 days K59.04 - Chronic idiopathic constipation metoclopramide HCl (Reglan) 10 mg PO QIDACHS 120 tabs 6RF Nausea K31.84 - Gastroparesis dexlansoprazole 60 mg PO DAILY 30 caps 6RF dicyclomine 20 mg PO QID PRN 360 tabs 2RF for abdominal pain simethicone after meals 180 mg PO QID 120 caps 6RF 30 days R14.0 - Abdominal distension (gaseous) Coding Level of Care Code Est Pt Level 3 (99128) Diagnoses Chronic idiopathic constipation K59.04 Gastroesophageal reflux disease without esophagitis K21.9 Esophagitis presence: without esophagitis
[2023-07-16 10:58] VITALS: BP 134/69; PULSE 60; BMI 31.9
== END 2023-07-16 11:22 | disposition home or self-care (01) ==
PROVIDERS: PCP Internal Medicine; Visit Provider Nurse Practitioner
DX: K59.04 Chronic idiopathic constipation (principal); K21.9 Gastro-esophageal reflux disease without esophagitis
CPT/HCPCS: 99213

== ENCOUNTER → 2023-07-16 10:50 | Outpatient (BNVA) | payer MEDICARE, MEDICAID, SELFPAY | PROVIDERS: PCP Internal Medicine; Visit Provider Nurse Practitioner | DX: K59.04 Chronic idiopathic constipation (principal); K21.9 Gastro-esophageal reflux disease without esophagitis | CPT/HCPCS: 99212 ==

== ENCOUNTER 2023-08-20 07:13 | Outpatient (REF) | payer MEDICARE, MEDICAID, SELFPAY ==
[2023-08-20 07:28] LABS: MANUAL DIFF FLAG NO
[2023-08-20 08:08] LABS: Basophils Absolute Auto 0.1 X10*3/uL (0.0-0.2); Basophils Percent Auto 0.9 % (0-2); Eosinophils Absolute Auto 0.2 X10*3/uL (0.0-0.4); Eosinophils Percent Auto 2.8 % (0-4); Hematocrit 34.9 % (37.0-47.0); Hemoglobin 11.3 g/dl (12.0-16.0); Imm Gran Abs Auto 0.05 X10*3/uL (0.00-0.03); Imm Gran Pct Auto 0.6 % (0.0-0.4); Immature Retic Fraction 12.7 % (3.0-15.9); Lymphocytes Absolute Auto 1.8 X10*3/uL (1.2-4.9); Lymphocytes Percent Auto 21.8 % (20-40); Mean Corpuscular HGB Conc 32.4 g/dl (31.0-35.0); Mean Corpuscular Volume 86.6 fL (80.0-98.0); Mean Platelet Volume 10.9 fL (9.4-12.3); Monocytes Absolute Auto 0.7 X10*3/uL (0.1-1.2); Monocytes Percent Auto 8.8 % (2-11); Neutrophils Absolute Auto 5.3 x10*3/uL (2.0-8.3); Neutrophils Percent Auto 65.1 % (45-73); Platelet Count 304 X10*3/uL (160-400); Red Blood Count 4.03 X10*6/uL (4.20-5.50); Red Cell Distribution Width 13.8 % (11.0-16.0); Retic HGB Equivalent 30.4 pg (30.0-35.0); Reticulocyte Percent 2.3 % (0.5-1.8); Reticulocytes Absolute 0.091 X10*6/uL (0.026-0.095); White Blood Count 8.2 X10*3/uL (4.8-10.8)
[2023-08-20 08:53] LABS: Appearance Urine Clear; Color Urine Yellow; Glucose Urine UA Negative (Negative); Leukocyte Esterase Urine Trace (Negative); Nitrite Urine Negative (Negative); UMIC TRIGGER UACC YES; Urine Blood Negative (Negative); Urine Ketones Trace mg/dL (Negative); Urine Protein Negative (Neg-Trace)
[2023-08-20 09:05] LABS: Alanine Aminotransferase 16 U/L (0-31); Albumin Level 4.1 g/dL (3.5-5.0); Alkaline Phosphatase 60 U/L (39-117); Anion Gap 11 (12-20); Aspartate Amino Transferase 32 U/L (5-31); Blood Urea Nitrogen 15 mg/dL (9-16); Calcium 9.4 mg/dL (8.4-10.2); Carbon Dioxide 21 mmol/L (22-29); Chloride 111 mmol/L (96-108); Cholesterol 134 mg/dL (<200); Estimated Glomerular Filt Rate > 60; Glucose Fasting 88 mg/dL (60-99); HDL Cholesterol 61 mg/dL (>40); Iron 111 mcg/dL (30-160); LDL Cholesterol Calculated 56 mg/dL (<100); Percent Iron Saturation 33 % (15-50); Sodium 139 mmol/L (135-145); Total Iron Binding Capacity 339 mcg/dL (228-428); Total Protein 7.5 g/dL (6.5-8.0); Triglycerides 89 mg/dL (<150); Unsaturated Iron Binding 228 ug/dL
[2023-08-20 09:06] LABS: Bacteria Urine None Seen (None Seen); Hyaline Casts Urine 0-2 /LPF (0-2); RBC Urine 0-2 /HPF (0-2); Squamous Epithelial Cell Urine 0-2 /HPF (0-2); WBC Urine 0-5 /HPF (0-5)
[2023-08-20 09:07] LABS: Vitamin D 25-OH Total 39.7 ng/mL (>30)
[2023-08-20 09:08] LABS: TSH reflex Free T4 2.82 uIU/mL (0.32-4.0)
[2023-08-20 09:11] LABS: Estimated Average Glucose 103 mg/dL; Folate 13.2 ng/mL (> or = 4.0); Hemoglobin A1c % 5.2 % (<6.0); Vitamin B12 348 pg/mL (200-900)
[2023-08-20 09:35] LABS: Bilirubin Total 0.5 mg/dL (0.0-1.0)
[2023-08-20 09:39] LABS: Creatinine Urine 167.13 mg/dL; Microalbum/Creatinine Ratio Ur 5.9 ug/mg cr (<30)
== END 2023-08-20 07:14 | disposition home or self-care (01) ==
LOC: HO.LAB 07:13
PROVIDERS: PCP Internal Medicine; Visit Provider Internal Medicine
DX: D50.9 Iron deficiency anemia, unspecified (principal); E55.9 Vitamin D deficiency, unspecified; E53.8 Deficiency of other specified B group vitamins; R30.0 Dysuria; E78.00 Pure hypercholesterolemia, unspecified; E11.9 Type 2 diabetes mellitus without complications
CPT/HCPCS: 36415; 80053; 80061; 81001; 82043; 82306; 82570; 82607; 82746; 83036; 83540; 84443; 85025; 85045

== ENCOUNTER 2023-08-21 10:26 | Outpatient (AMB) | payer MEDICARE, MEDICAID, SELFPAY ==
[2023-08-21 10:28] VITALS: BP 98/70; PULSE 62; O2SAT 98; BMI 31.6
--- NOTE | 2023-08-21 10:28 | MHC.PC.OV ---
Vital Signs 08/21/23 10:28 Height 5 ft Weight 162 lb BMI 31.6 BP 98/70 Blood Pressure Location Lt brachial Position Sitting Pulse 62 Pulse Source Pulse Oximeter Pulse Oximetry (%) 98 Oxygen Delivery Method Room Air Intake Visit Reasons: DM, anemia, GERD, chronic constipation Chair Mender Required: No Allergies lisinopril [LISINOPRIL] Allergy (Severe, Verified 08/21/23 11:22) ANAPYHLAXIS, swelling metformin [METFORMIN] Allergy (Severe, Verified 08/21/23 11:22) ANAPHYLAXIS, diarrhea sumatriptan [From IMITREX] Allergy (Severe, Verified 08/21/23 11:22) ANAPHYLAXIS, sedation Medication List - Last Reconciled 08/21/23 by Juve Crawford MD acarbose 100 mg PO TID alcohol swabs (Alcohol Pads) 1 pad topical TID 30 days alprazolam 1 mg PO TID PRN bisacodyl (Laxative (bisacodyl)) 5 - 10 mg (1 - 2 x 5 mg) PO BEDTIME blood sugar diagnostic (FreeStyle Lite Strips) test blood sugar once a day as instructed - frequent low blood sugar readings blood-glucose meter (FreeStyle Lite Meter kit) As directed once a day cetirizine 10 mg PO DAILY PRN 90 days clonidine HCl 0.1 mg PO DAILY cyanocobalamin (vitamin B-12) 500 mcg sublingual daily, saturday - saturday; 30 days dexlansoprazole 60 mg PO DAILY dicyclomine 20 mg PO QID PRN ferrous sulfate 325 mg PO DAILY fluticasone propionate 50 mcg/actuation 1 spray intranasal DAILY hydrocortisone 2.5% (Proctosol HC) 1 appl TX BID ibuprofen 600 mg PO Q8H PRN ibuprofen 800 mg PO TID PRN 30 days ipratropium bromide 1 spray intranasal BID lancets (FreeStyle Lancets) test blood sugar once as instructed - frequent LOW blood sugar readings levonorgestrel (Mirena) 1 device intrauterine ONCE levothyroxine 50 mcg PO DAILY 90 days linaclotide (Linzess) 290 mcg PO DAILY 30 days melatonin 5 - 10 mg PO BEDTIME PRN meloxicam 15 mg PO DAILY metoclopramide HCl (Reglan) 10 mg PO QIDACHS mometasone 0.1% 1 appl topical DAILY PRN gqfcsjcuxoba-jirb-qnrrk acid 18-400 mg-mcg (Certavite-Antioxidant) 1 tab PO DAILY oxybutynin chloride ER 10 mg PO DAILY pyridoxine (vitamin B6) 100 mg PO DAILY rosuvastatin 5 mg PO DAILY simethicone 180 mg PO QID 30 days topiramate 100 mg PO BEDTIME 90 days tramadol 1 tablet 1 to 2 times a day orally ONLY NEEDED for SEVERE PAIN; 30 days Tobacco use date assessed: 08/21/23 Dental Screening Dental Screen Date: 05/15/23 HPI DM, anemia, GERD, chronic constipation HPI Details Patient comes in today for her follow up visit States that she feels okay She denies any headaches or dizziness Denies any chest pains, no SOB No nausea/vomiting, no abdominal pain No change in bowel habits noted States that her joint pains remain adequately controlled on her current Rx Needs a couple of her Rx refilled Had her follow up labs done yesterday - to discuss her results [facility] Medical History Hypothyroidism (acquired) Renal calculi Anemia Vitamin D deficiency Pure hypercholesterolemia Obesity (BMI 30-39.9) Costochondritis Lumbar degenerative disc disease Migraine Allergic rhinitis Diabetes mellitus Occipital neuralgia of left side Chronic pain syndrome Spondylosis of cervical spine without myelopathy Type 2 diabetes mellitus in remission Arthritis EKG abnormalities Anal fissure Renal stones Gastroparesis Hepatomegaly Leukocytosis MIO on CPAP Insomnia Anxiety Constipation GERD (gastroesophageal reflux disease) B12 deficiency Proteinuria Type 2 diabetes mellitus with other diabetic kidney complication Dyslipidemia Hypoglycemia after GI (gastrointestinal) surgery Surgical History H/O colonoscopy H/O gastric bypass History of tubal ligation Hx of lithotripsy History of umbilical hernia Hx of section History of esophagogastroduodenoscopy (EGD) Hx of bilateral breast reduction surgery Hx of cholecystectomy Family History Father Liver cancer Hypertension Diabetes mellitus CVD (cardiovascular disease) Liver failure Mother Hypercholesterolemia Breast cancer Asthma Depression Maternal Grandmother Diabetes mellitus Hypertension Paternal Grandmother Diabetes mellitus Hypertension Social History Household Members: Significant Other Housing: House Alcohol intake: never Patient Tobacco Use Status: Never used Tobacco e-Cigarette/Vaping Use: Never Used Second Hand Smoke Exposure: Yes service: No Current occupational status: disabled Cognitive needs: No Hearing needs: No Vision needs: Yes Female Reproductive History Menstrual Age of Menarche: 11 Questionnaire PHQ-9 Over the last 2 weeks, how often have you been bothered by any of the following problems? 1. Little interest or pleasure in doing things: not at all 2. Feeling down, depressed, or hopeless: not at all 3. Trouble falling or staying asleep, or sleeping too much: not at all 4. Feeling tired or having little energy: not at all 5. Poor appetite or overeating: not at all 6. Feeling bad about yourself - or that you are a failure or have let yourself or your family down: not at all 7. Trouble concentrating on things, such as reading the newspaper or watching television: not at all 8. Moving or speaking so slowly that other people could have noticed. Or the opposite - being so fidgety or restless that you have been moving around a lot more than usual: not at all 9. Thoughts that you would be better off or of hurting yourself in some way: not at all Total score: 0 Depression Screening Interpretation: Negative Depression Screening Done: Yes 73923 - PHQ-9 Billing: Yes Source: Developed by Drs. Arthur Duran, Amira Brownlee, Nikos Pelayo and colleagues, with an educational beatriz from [facility]. Thrive Questionnaire Date Thrive assessed: 08/21/23 I am a: Patient What is your living situation today?: I have a steady place to live Within the past 12 months, did the food you bought not last and you didn't have the money to get more?: Never true Within the past 12 months, did you worry whether your food would run out before you got money to buy more?: Never true Do you have trouble paying for medicines?: No Do you have trouble getting transportation to medical appointments?: No Do you have trouble paying your heating and electricity bill?: No Do you have trouble taking care of your child, family member or friend?: No Do you have trouble with day-to-day activities such as bathing, preparing meals, shopping, managing finances, etc.?: No Are you currently unemployed and looking for a job?: No Are you interested in more education?: No Please select the resources that you would like help with: None Currently or been in a relationship where the following occur: no concerns reported THRIVE Score: 0 AUDIT C Alcohol Use Questionnaire (AUDIT-C) 1. How often do you have a drink containing alcohol?: Never 3. How often do you have six or more drinks on one occasion?: Never Total Score: 0 Score Reviewed/Action Taken: Yes SUSAN-7 AMB Questionnaire SUSAN-7 Date SUSAN - 7 assessed: 05/15/23 Source: Developed by Drs. Arthur Duran, Amira Brownlee, Nikos Pelayo and colleagues, with an educational beatriz from [facility]. Review of Systems Const Denies chills, Denies fatigue, Denies fever(s) and Denies headache(s) (controlled) ENT Denies dysphagia, Denies dizziness, Denies otalgia, Denies headache(s) (controlled), Reports neck pain, Denies odynophagia and Denies sore throat Card Denies chest pain, Denies lightheadedness, Denies palpitations and Denies dyspnea Resp Denies chest congestion, Denies cough, Denies dyspnea and Denies wheezing GI Denies abdominal pain, Reports constipation (chronic), Denies dysphagia, Denies diarrhea, Denies nausea, Denies odynophagia and Denies vomiting Denies difficulty voiding, Denies nocturia, Denies dysuria and Denies urinary urgency Musc Reports back pain (chronic), Reports neck pain, Reports radiating pain into limb (down right leg and into the foot) and Denies tingling Skin/Breast Denies rash Neuro Denies dizziness, Denies headache(s) (controlled) and Denies tingling Endo Denies fatigue and Denies palpitations Aller/Immun Denies wheezing Physical exam (Primary Care) Vital Signs: Last Vital Signs Pulse 62 08/21/23 10:28 BP 98/70 08/21/23 10:28 Pulse Ox 98 08/21/23 10:28 Oxygen Delivery Method Room Air 08/21/23 10:28 BMI result Body Mass Index 31.6 Tobacco/Smoking Status: Tobacco use Status Tobacco use date assessed 08/21/23 08/21/23 10:30 Patient Tobacco Use Status Never used Tobacco 08/21/23 10:30 e-Cigarette/Vaping Use Never Used 08/21/23 10:30 PHQ-9: PHQ-9 Score PHQ-9: Total score 0 08/21/23 10:30 Depression Screening Interpretation: Negative Thrive Assessment: Date of Thrive Assessment Date Thrive assessed 08/21/23 08/21/23 10:30 Currently or been in a relationship where the following occur: no concerns reported Const General: no acute distress and alert HENMT Ears: TM's normal bilaterally and EAC's normal Throat: Yes posterior oropharynx normal and Yes tonsils normal (no TP congestion noted) Neck Neck: Yes no lymphadenopathy and Yes supple Thyroid: Thyroid normal Resp Auscultation: clear to auscultation bilaterally, no rales and no wheezes Cardio Rate: regular rate Rhythm: regular rhythm Heart sounds: no murmurs GI Palpation (GI): Soft to palpation and nontender Auscultation: normal bowel sounds General: Yes no CVA tenderness Back/Spine/Pelvis Back: no CVA tenderness Cervical Spine: Cervical spine tenderness Thoracic/Lumbar Spine: paraspinal muscle tenderness on the right in the upper lumbar, in the mid lumbar and in the lower lumbar and lumbar spinal tenderness Skin Rashes: no rashes Extrem General: Yes no clubbing, cyanosis or edema Results Reviewed Results Reviewed: Laboratory Tests 08/20/23 08/20/23 07:20 07:27 WBC 8.2 Hgb 11.3 L Hct 34.9 L Plt Count 304 Absolute Retic 0.091 Percent Retic 2.3 H Sodium 139 Potassium 4.0 Creatinine 0.80 Estimated GFR > 60 Fasting Glucose 88 Hemoglobin A1c % 5.2 Calcium 9.4 D Iron 111 TIBC 339 % Saturation 33 AST 32 H ALT 16 Triglycerides 89 Cholesterol 134 LDL Cholesterol, Calc 56 HDL Cholesterol 61 Vitamin B12 348 25-OH Vitamin D Total 39.7 TSH 2.82 Urine pH 8.0 Ur Specific [place] 1.020 Urine Protein Negative Urine Glucose (UA) Negative Urine Blood Negative Urine Nitrite Negative Ur Leukocyte Esterase Trace H Microalb/Creat Ratio 5.9 Assessment and Plan Assessment & Plan (1) Pure hypercholesterolemia: Code(s): E78.00 - Pure hypercholesterolemia, unspecified Plan: Results of her labs done yesterday reviewed and discussed with patient Reinforced low cholesterol diet Continue Rosuvastatin 5 mg QD Will recheck her labs and fasting lipids in 3 months for follow up (2) Diabetes mellitus: Code(s): E11.9 - Type 2 diabetes mellitus without complications Qualifiers: Diabetes mellitus type: type 2 Diabetes mellitus moth exterminator insulin use: without fci use Diabetes mellitus complication status: without complication Qualified Code(s): E11.9 - Type 2 diabetes mellitus without complications Plan: HgbA1c remains normal at 5.2% on her labs done yesterday; was previously at 4.9% a few months ago - goal is <6.5% Reinforced diabetic diet Continue Acarbose 100 mg TID Follow up with endocrinology as needed - has reportedly been advised by endocrinology that since her diabetes has been very well controlled, she can just follow up with her PCP and see them only on an as-needed basis (3) Hypothyroidism (acquired): Code(s): E03.9 - Hypothyroidism, unspecified Plan: Her TFTs remain normal on her recent labs Continue Levothyroxine 50 mcg QD Will continue to monitor her TFTs regularly (4) Migraine: Code(s): G43.909 - Migraine, unspecified, not intractable, without status migrainosus Qualifiers: Migraine type: unspecified Status migrainosus presence: without status migrainosus Intractability: not intractable Qualified Code(s): G43.909 - Migraine, unspecified, not intractable, without status migrainosus Plan: States that her migraine headaches have been stable on her current prophylactic Rx - continue Topiramate 100 mg Q HS Reinforced avoidance of potential migraine triggers (5) Chronic idiopathic constipation: Code(s): K59.04 - Chronic idiopathic constipation Plan: Reinforced increased oral fluids and dietary fiber Continue Linzess 290 mcg QD Follow up with GI as scheduled S/P screening colonoscopy on 11/08/22 - recommend repeat colonoscopy in 2 to 3 years due to suboptimal prep (6) GERD (gastroesophageal reflux disease): Code(s): K21.9 - Gastro-esophageal reflux disease without esophagitis Qualifiers: Esophagitis presence: without esophagitis Qualified Code(s): K21.9 - Gastro-esophageal reflux disease without esophagitis Plan: Dietary restrictions reinforced Continue Omeprazole 40 mg QD Follow up with GI as scheduled (7) Anemia: Code(s): D64.9 - Anemia, unspecified Qualifiers: Anemia type: unspecified type Qualified Code(s): D64.9 - Anemia, unspecified Plan: Patient is still mildly anemic but her H/H have remained stable Continue Ferrous sulfate 325 mg QD and Vitamin B12 1000 mcg QD Will continue to monitor her CBC regularly Follow up with hematology as scheduled (8) B12 deficiency: Code(s): E53.8 - Deficiency of other specified B group vitamins Plan: Corrected - continue Vitamin B12 tablets 1000 mcg QD (9) Vitamin D deficiency: Code(s): E55.9 - Vitamin D deficiency, unspecified Plan: Continue OTC Vitamin D supplements daily (10) Allergic rhinitis: Code(s): J30.9 - Allergic rhinitis, unspecified Qualifiers: Allergic rhinitis trigger: unspecified Allergic rhinitis seasonality: unspecified Qualified Code(s): J30.9 - Allergic rhinitis, unspecified Plan: Continue Fluticasone 50 mcg nasal spray QD PRN and Cetirizine 10 mg QD PRN - Rx refilled (11) Lumbar degenerative disc disease: Code(s): M51.36 - Other intervertebral disc degeneration, lumbar region Plan: Reinforced activity and weight-lifting restrictions to minimize aggravating her low back pain Repeat lumbar spine x-rays done in April 2021 revealed (+) chronic changes of lumbar spine DDD Was sent for lumbar spine MRI for further evaluation but patient reportedly missed her appt and has not rescheduled Continue Ibuprofen 800 mg TID with food PRN for pain and Tramadol 50 mg 1 to 2 times a day ONLY as needed for SEVERE pain - Rx refilled (12) Spondylosis of cervical spine without myelopathy: Code(s): M47.812 - Spondylosis without myelopathy or radiculopathy, cervical region Plan: Was seen by pain management a few months ago and recommended physical therapy and other modalities to help with her neck pain; recommended NO opioids as they do not think patient's current symptoms warrant Tx with long-term opioids She has been reportedly advised to follow up with them only on an as needed basis (13) Insomnia: Code(s): G47.00 - Insomnia, unspecified Qualifiers: Insomnia type: unspecified Qualified Code(s): G47.00 - Insomnia, unspecified Plan: Sleep hygiene reinforced Continue Amitriptyline 25 mg Q HS (14) Anxiety: Code(s): F41.9 - Anxiety disorder, unspecified Plan: Continue Alprazolam 1 mg TID PRN Follow up with psychiatry as scheduled (15) Obesity (BMI 30-39.9): Code(s): E66.9 - Obesity, unspecified Plan: Reinforced diet/exercise as tolerated/lose weight Plan Follow up in 3 months Orders: Orders Comprehensive [place]. Panel Fast 3 Months E78.00 - Pure hypercholesterolemia, unspecified Lipid Panel 3 Months E78.00 - Pure hypercholesterolemia, unspecified Thyroid Stimulating Hormone 3 Months E03.9 - Hypothyroidism, unspecified Free T4 (Free Thyroxine) 3 Months E03.9 - Hypothyroidism, unspecified UA CC w/rflx Micro + Cult 3 Months R30.0 - Dysuria Complete Blood Count Auto Diff 3 Months D64.9 - Anemia, unspecified Hemoglobin A1c 3 Months E11.9 - Type 2 diabetes mellitus without complications Microalbumin, Random (w Creat) 3 Months E11.9 - Type 2 diabetes mellitus without complications Medications: Refilled cetirizine 10 mg PO DAILY 90 days PRN 90 tabs 1RF Allergy Symptoms levothyroxine 50 mcg PO DAILY 90 days 90 tabs 1RF E03.9 - Hypothyroidism, unspecified Coding Level of Care Code Est Pt Level 4 (71417) Complex EM visit Add On G2211 Diagnoses Pure hypercholesterolemia E78.00 Type 2 diabetes mellitus without complication, without long-term current use of insulin E11.9 Diabetes mellitus type: type 2 Diabetes mellitus fci insulin use: without moth exterminator use Diabetes mellitus complication status: without complication Hypothyroidism (acquired) E03.9 Migraine without status migrainosus, not intractable, unspecified migraine type G43.909 Migraine type: unspecified Status migrainosus presence: without status migrainosus Intractability: not intractable Chronic idiopathic constipation K59.04 Gastroesophageal reflux disease without esophagitis K21.9 Esophagitis presence: without esophagitis Anemia, unspecified type D64.9 Anemia type: unspecified type B12 deficiency E53.8 Vitamin D deficiency E55.9 Allergic rhinitis, unspecified seasonality, unspecified trigger J30.9 Allergic rhinitis trigger: unspecified Allergic rhinitis seasonality: unspecified Lumbar degenerative disc disease M51.36 Spondylosis of cervical spine without myelopathy M47.812 Insomnia, unspecified type G47.00 Insomnia type: unspecified Anxiety F41.9 Obesity (BMI 30-39.9) E66.9
== END 2023-08-21 11:32 | disposition home or self-care (01) ==
PROVIDERS: PCP Internal Medicine; Visit Provider Internal Medicine
DX: E78.00 Pure hypercholesterolemia, unspecified (principal); E11.9 Type 2 diabetes mellitus without complications; E03.9 Hypothyroidism, unspecified; G43.909 Migraine, unspecified, not intractable, without status migrainosus; K59.04 Chronic idiopathic constipation; K21.9 Gastro-esophageal reflux disease without esophagitis; D64.9 Anemia, unspecified; E53.8 Deficiency of other specified B group vitamins; E55.9 Vitamin D deficiency, unspecified; J30.9 Allergic rhinitis, unspecified; M51.36 Other intervertebral disc degeneration, lumbar region; M47.812 Spondylosis without myelopathy or radiculopathy, cervical region
CPT/HCPCS: 99214; G2211

== ENCOUNTER 2023-09-10 10:34 | Outpatient (AMB) | payer MEDICARE, MEDICAID, SELFPAY ==
[2023-09-10 10:36] VITALS: BP 110/76; BMI 31.6
--- NOTE | 2023-09-10 10:36 | MHC.OFFVIS ---
Vital Signs 09/10/23 10:36 Height 5 ft Weight 162 lb BMI 31.6 BP 110/76 Blood Pressure Location Lt brachial Position Sitting Intake Visit Reasons: [employer] WORK[employer] annual exam Allergies lisinopril [LISINOPRIL] Allergy (Severe, Verified 09/10/23 10:36) ANAPYHLAXIS, swelling metformin [METFORMIN] Allergy (Severe, Verified 09/10/23 10:36) ANAPHYLAXIS, diarrhea sumatriptan [From IMITREX] Allergy (Severe, Verified 09/10/23 10:36) ANAPHYLAXIS, sedation HPI Comments Details: Presenting for annual exam. No complaints. Last Pap/HPV was ascus/HPV negative in 06/06 Last Mammogram was BI-RADS , the recommendation was to repeat in 12 months Last Colonoscopy was in 11/07, the recommendation was to repeat in 2-3 years [facility] Medical History (Updated 09/10/23 @ 10:57 by Rupert Antonio MD) ASCUS of cervix with negative high risk HPV Hypothyroidism (acquired) Renal calculi Anemia Vitamin D deficiency Pure hypercholesterolemia Obesity (BMI 30-39.9) Costochondritis Lumbar degenerative disc disease Migraine Allergic rhinitis Diabetes mellitus Occipital neuralgia of left side Chronic pain syndrome Spondylosis of cervical spine without myelopathy Type 2 diabetes mellitus in remission Arthritis EKG abnormalities Anal fissure Renal stones Gastroparesis Hepatomegaly Leukocytosis MIO on CPAP Insomnia Anxiety Constipation GERD (gastroesophageal reflux disease) B12 deficiency Proteinuria Type 2 diabetes mellitus with other diabetic kidney complication Dyslipidemia Hypoglycemia after GI (gastrointestinal) surgery Surgical History H/O colonoscopy H/O gastric bypass History of tubal ligation Hx of lithotripsy History of umbilical hernia Hx of section History of esophagogastroduodenoscopy (EGD) Hx of bilateral breast reduction surgery Hx of cholecystectomy Family History Father Liver cancer Hypertension Diabetes mellitus CVD (cardiovascular disease) Liver failure Mother Hypercholesterolemia Breast cancer Asthma Depression Maternal Grandmother Diabetes mellitus Hypertension Paternal Grandmother Diabetes mellitus Hypertension Social History Household Members: Significant Other Housing: House Alcohol intake: never Patient Tobacco Use Status: Never used Tobacco e-Cigarette/Vaping Use: Never Used Second Hand Smoke Exposure: Yes service: No Current occupational status: disabled Cognitive needs: No Hearing needs: No Vision needs: Yes Female Reproductive History Menstrual Age of Menarche: 11 control method: progestin IUCD Total pregnancies: 6 Full term: 6 Number of Living Children: 6 Date of last pap smear: 05/18/21 History of abnormal pap smear: Yes History of STI: No Date of Mammogram: 05/31/23 History of abnormal mammogram: No Review of Systems Const All systems reviewed & are unremarkable except as noted in HPI and below Card Reports as per HPI Resp Reports as per HPI GI Reports as per HPI and Reports no additional complaints Reports as per HPI Physical Exam Vital Signs: Last Vital Signs BP 110/76 09/10/23 10:36 BMI result Body Mass Index 31.6 Const General: cooperative, healthy appearing and comfortable Chest Chest palpation & inspection: normal inspection of the chest and normal palpation of entire chest wall Breast/axilla inspection: normal inspection of the breasts and normal inspection of the axillae Breast/axilla palpation: normal palpation of the breasts, normal palpation of the axillae and no axillary lymphadenopathy Resp Effort & Inspection: normal respiratory effort Auscultation: clear to auscultation bilaterally Percussion: percussion normal Cardio Palpation: normal PMI Rate: regular rate Rhythm: regular rhythm Heart sounds: no murmurs and no rubs Peripheral pulses: Peripheral pulses 2+ throughout GI Inspection: Yes normal to inspection Palpation (GI): Soft to palpation, nontender, no guarding, not rigid and No hepatosplenomegaly present Percussion: Yes normal to percussion Auscultation: normal bowel sounds Rectal Exam - Female: deferred General: Yes bladder normal to palpation External Female Exam: No lesion Speculum Exam - Vagina: normal appearance of the vagina, normal palpation, normal vaginal discharge and not erythematous Speculum Exam - Cervix: normal appearance of the cervix and normal palpation Bimanual exam- vagina & uterus: normal bimanual exam, normal palpation, uterine size normal, bladder normal to palpation, consistency normal and normal palpation Bimanual Exam- Adnexa, other: normal adnexae, no masses and no tenderness Assessment & Plan Assessment & Plan (1) Well woman exam: Code(s): Z01.419 - Encounter for gynecological examination (general) (routine) without abnormal findings Category: Medical Plan: Co testing done. Counseled the patient about the recommended dietary allowance of 1200 mg of Calcium & 600 IU of vitamin D. Instructions given to patient to schedule next screening Mammogram in 06/09. The patient was instructed to perform monthly self-breast exams and schedule annual exam in a year. All questions answered and the patient verbalized understanding. Coding Level of Care Code Est Pt Prev Care 40-64y(09017) Diagnoses Well woman exam Z01.419
== END 2023-09-10 11:30 | disposition home or self-care (01) ==
PROVIDERS: PCP Internal Medicine; Referring Provider Internal Medicine; Visit Provider Obstetrics & Gynecology
DX: Z01.419 Encounter for gynecological examination (general) (routine) without abnormal findings (principal)
CPT/HCPCS: G0101; Q0091

== ENCOUNTER 2023-09-10 10:34 | Outpatient (REF) | payer MEDICARE, MEDICAID, SELFPAY ==
[2023-10-09 07:35] LABS: HPV mRNA E6/E7 rflx Not Detected
== END 2023-09-10 10:35 | disposition home or self-care (01) ==
LOC: HO.LNP 10:34
PROVIDERS: PCP Internal Medicine; Visit Provider Obstetrics & Gynecology
DX: Z01.419 Encounter for gynecological examination (general) (routine) without abnormal findings (principal)
CPT/HCPCS: 87624; 87625; 88175; G0101; Q0091

== ENCOUNTER 2023-11-19 09:37 | Outpatient (REF) | payer MEDICARE, MEDICAID, SELFPAY ==
--- NOTE | ~2023-11-19 | US_ITS ---
EXAMINATION: US RETROPERITONEAL COMPLETE (RENAL) dGE 1 CLINICAL INFORMATION: History of urinary calculi. COMPARISON: Renal ultrasound 12/20/2022 and 12/13/2021. CT abdomen and pelvis 08/26/2020. TECHNIQUE: Real-time imaging of the kidneys and bladder. Limited visualization due to bowel gas. FINDINGS: RIGHT KIDNEY: 11.6 x 5.6 x 5.3 cm (SAG x AP x TRV). No hydronephrosis. No renal calculi. Renal cortical thickness is normal. Limited visualization. LEFT KIDNEY: 11.1 x 5.3 x 4.6 cm (SAG x AP x TRV). A 0.6 cm left renal upper pole calcification may represent a nonobstructing calculus or a calcification associated with a 1.6 cm upper pole cyst. The cyst was not appreciated on prior exams. No hydronephrosis. Renal cortical thickness is normal. Limited visualization. US/US renal BI IMPRESSION: A 0.6 cm left renal upper pole calcification may represent a nonobstructing calculus or a calcification associated with a 1.6 cm upper pole cyst. The cyst was not appreciated on prior exams. CT scan could be considered for further evaluation. Electronically signed by: Tammy Campbell MD 11/20/2023 04:50 PM EDT
== END 2023-11-19 09:38 | disposition home or self-care (01) ==
LOC: HO.US 09:37
PROVIDERS: PCP Internal Medicine; Visit Provider Urology
DX: N20.0 Calculus of kidney (principal); Z87.442 Personal history of urinary calculi
CPT/HCPCS: 76775

== ENCOUNTER 2023-12-16 07:13 | Outpatient (REF) | payer MEDICARE, MEDICAID, SELFPAY ==
[2023-12-16 07:23] LABS: MANUAL DIFF FLAG NO
[2023-12-16 08:03] LABS: Basophils Absolute Auto 0.1 X10*3/uL (0.0-0.2); Basophils Percent Auto 0.8 % (0-2); Eosinophils Absolute Auto 0.2 X10*3/uL (0.0-0.4); Eosinophils Percent Auto 2.7 % (0-4); Hematocrit 35.7 % (37.0-47.0); Hemoglobin 11.2 g/dl (12.0-16.0); Imm Gran Abs Auto 0.05 X10*3/uL (0.00-0.03); Imm Gran Pct Auto 0.6 % (0.0-0.4); Lymphocytes Absolute Auto 1.9 X10*3/uL (1.2-4.9); Lymphocytes Percent Auto 22.1 % (20-40); Mean Corpuscular HGB Conc 31.4 g/dl (31.0-35.0); Mean Corpuscular Hemoglobin 27.6 pg (27.0-33.0); Mean Corpuscular Volume 87.9 fL (80.0-98.0); Mean Platelet Volume 10.9 fL (9.4-12.3); Monocytes Absolute Auto 0.7 X10*3/uL (0.1-1.2); Monocytes Percent Auto 8.4 % (2-11); Neutrophils Absolute Auto 5.7 x10*3/uL (2.0-8.3); Neutrophils Percent Auto 65.4 % (45-73); Platelet Count 312 X10*3/uL (160-400); Red Blood Count 4.06 X10*6/uL (4.20-5.50); Red Cell Distribution Width 13.5 % (11.0-16.0); White Blood Count 8.7 X10*3/uL (4.8-10.8)
[2023-12-16 08:07] LABS: Appearance Urine Clear; Color Urine Yellow; Glucose Urine UA Negative (Negative); Leukocyte Esterase Urine Negative (Negative); Nitrite Urine Negative (Negative); Urine Blood Negative (Negative); Urine Ketones Negative (Negative); Urine Protein Negative (Neg-Trace)
[2023-12-16 08:11] LABS: Estimated Average Glucose 100 mg/dL; Hemoglobin A1C 94.2305 umol/L; Hemoglobin A1c % 5.1 % (<6.0); Total Hemoglobin (HGBA1C) 2890.5725 umol/L
[2023-12-16 08:31] LABS: Creatinine Urine 157.06 mg/dL; Microalbum/Creatinine Ratio Ur 5.7 ug/mg cr (<30)
[2023-12-16 08:33] LABS: Alanine Aminotransferase 15 U/L (0-31); Albumin Level 3.9 g/dL (3.5-5.0); Alkaline Phosphatase 63 U/L (39-117); Anion Gap 10 (12-20); Aspartate Amino Transferase 23 U/L (5-31); Bilirubin Total 0.3 mg/dL (0.0-1.0); Blood Urea Nitrogen 13 mg/dL (9-16); Calcium 9.3 mg/dL (8.4-10.2); Carbon Dioxide 23 mmol/L (22-29); Chloride 111 mmol/L (96-108); Cholesterol 128 mg/dL (<200); Estimated Glomerular Filt Rate > 60; Glucose Fasting 89 mg/dL (60-99); HDL Cholesterol 60 mg/dL (>40); LDL Cholesterol Calculated 49 mg/dL (<100); Sodium 140 mmol/L (135-145); Total Protein 7.3 g/dL (6.5-8.0); Triglycerides 97 mg/dL (<150)
[2023-12-16 08:52] LABS: Free T4 (Free Thyroxine) 0.75 ng/dL (0.71-1.85); Thyroid Stimulating Hormone 2.38 uIU/mL (0.32-4.0)
== END 2023-12-16 07:14 | disposition home or self-care (01) ==
LOC: HO.LAB 07:13
PROVIDERS: PCP Internal Medicine; Visit Provider Internal Medicine
DX: D64.9 Anemia, unspecified (principal); E11.9 Type 2 diabetes mellitus without complications; R30.0 Dysuria; E03.9 Hypothyroidism, unspecified; E78.00 Pure hypercholesterolemia, unspecified
CPT/HCPCS: 36415; 80053; 80061; 81003; 82043; 82570; 83036; 84439; 84443; 85025

== ENCOUNTER 2023-12-25 09:27 | Outpatient (AMB) | payer MEDICARE, MEDICAID, SELFPAY ==
[2023-12-25 09:28] VITALS: BP 120/80; PULSE 63; O2SAT 98; BMI 32.2
--- NOTE | 2023-12-25 09:28 | A.OFFPC_ITS ---
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 Required: No Accompanied by: Self / Same As Patient Allergies lisinopril [LISINOPRIL] Allergy (Severe, Verified 12/25/23 10:15) ANAPYHLAXIS, swelling metformin [METFORMIN] Allergy (Severe, Verified 12/25/23 10:15) ANAPHYLAXIS, diarrhea sumatriptan [From IMITREX] Allergy (Severe, Verified 12/25/23 10:15) ANAPHYLAXIS, sedation Medication List - Last Reconciled 12/25/23 by Juve Crawford MD acarbose 100 mg PO TID alcohol swabs (Alcohol Pads) 1 pad topical TID 30 days alprazolam 1 mg PO TID PRN bisacodyl (Laxative (bisacodyl)) 5 - 10 mg (1 - 2 x 5 mg) PO BEDTIME blood sugar diagnostic (FreeStyle Lite Strips) test blood sugar once a day as instructed - frequent low blood sugar readings blood-glucose meter (FreeStyle Lite Meter kit) As directed once a day cetirizine 10 mg PO DAILY PRN 90 days clonidine HCl 0.1 mg PO DAILY cyanocobalamin (vitamin B-12) 500 mcg sublingual daily, saturday - saturday; 30 days dexlansoprazole 60 mg PO DAILY dicyclomine 20 mg PO QID PRN ferrous sulfate 325 mg PO DAILY fluticasone propionate 50 mcg/actuation 1 spray intranasal DAILY hydrocortisone 2.5% (Proctosol HC) 1 appl OH BID ibuprofen 600 mg PO Q8H PRN ibuprofen 800 mg PO TID PRN 30 days ipratropium bromide 1 spray intranasal BID lancets (FreeStyle Lancets) test blood sugar once as instructed - frequent LOW blood sugar readings levonorgestrel (Mirena) 1 device intrauterine ONCE levothyroxine 50 mcg PO DAILY 90 days linaclotide (Linzess) 290 mcg PO DAILY 30 days melatonin 5 - 10 mg PO BEDTIME PRN meloxicam 15 mg PO DAILY metoclopramide HCl (Reglan) 10 mg PO QIDACHS mometasone 0.1% 1 appl topical DAILY PRN [id number]-agrto acid 18-400 mg-mcg (Certavite-Antioxidant) 1 tab PO DAILY oxybutynin chloride ER 10 mg PO DAILY pyridoxine (vitamin B6) 100 mg PO DAILY rosuvastatin 5 mg PO DAILY simethicone 180 mg PO QID 30 days topiramate 100 mg PO BEDTIME 90 days tramadol 1 tablet 1 to 2 times a day orally ONLY NEEDED for SEVERE PAIN; 30 days Tobacco use date assessed: 12/25/23 Dental Screening Dental Screen Date: 12/25/23 Did you have a dental visit in the last 12 months?: No Did you have a dental problem in the last 6 months where you did not have access to dental care?: No Was dental information given to patient?: No HPI DM, hyperlipidemia, HTN, OA, GERD HPI Details Patient comes in today for her follow up visit States that she feels okay She denies any headaches or dizziness Denies any chest pains, no SOB No nausea/vomiting, no abdominal pain No change in bowel habits noted States that her joint pains remain adequately controlled on her current Rx Needs a couple of her Rx refilled Had her follow up labs done last week - to discuss her results Would also like to get her flu shot today [facility] Medical History ASCUS of cervix with negative high risk HPV Hypothyroidism (acquired) Renal calculi Anemia Vitamin D deficiency Pure hypercholesterolemia Obesity (BMI 30-39.9) Costochondritis Lumbar degenerative disc disease Migraine Allergic rhinitis Diabetes mellitus Occipital neuralgia of left side Chronic pain syndrome Spondylosis of cervical spine without myelopathy Type 2 diabetes mellitus in remission Arthritis EKG abnormalities Anal fissure Renal stones Gastroparesis Hepatomegaly Leukocytosis MIO on CPAP Insomnia Anxiety Constipation GERD (gastroesophageal reflux disease) B12 deficiency Proteinuria Type 2 diabetes mellitus with other diabetic kidney complication Dyslipidemia Hypoglycemia after GI (gastrointestinal) surgery Surgical History H/O colonoscopy H/O gastric bypass History of tubal ligation Hx of lithotripsy History of umbilical hernia Hx of section History of esophagogastroduodenoscopy (EGD) Hx of bilateral breast reduction surgery Hx of cholecystectomy Family History Father Liver cancer Hypertension Diabetes mellitus CVD (cardiovascular disease) Liver failure Mother Hypercholesterolemia Breast cancer Asthma Depression Maternal Grandmother Diabetes mellitus Hypertension Paternal Grandmother Diabetes mellitus Hypertension Social History Household Members: Significant Other Housing: House Alcohol intake: never Patient Tobacco Use Status: Never used Tobacco e-Cigarette/Vaping Use: Never Used Second Hand Smoke Exposure: Yes service: No Current occupational status: disabled Cognitive needs: No Hearing needs: No Vision needs: Yes Female Reproductive History Menstrual Age of Menarche: 11 Questionnaire PHQ-9 Over the last 2 weeks, how often have you been bothered by any of the following problems? 1. Little interest or pleasure in doing things: not at all 2. Feeling down, depressed, or hopeless: not at all 3. Trouble falling or staying asleep, or sleeping too much: not at all 4. Feeling tired or having little energy: not at all 5. Poor appetite or overeating: not at all 6. Feeling bad about yourself - or that you are a failure or have let yourself or your family down: not at all 7. Trouble concentrating on things, such as reading the newspaper or watching television: not at all 8. Moving or speaking so slowly that other people could have noticed. Or the opposite - being so fidgety or restless that you have been moving around a lot more than usual: not at all 9. Thoughts that you would be better off or of hurting yourself in some way: not at all Total score: 0 Depression Screening Interpretation: Negative Depression Screening Done: Yes 99446 - PHQ-9 Billing: Yes Source: Developed by Drs. Arthur Duran, Amira Brownlee, Nikos Pelayo and colleagues, with an educational beatriz from [employer]. Thrive Questionnaire Date Thrive assessed: 12/25/23 I am a: Patient What is your living situation today?: I have a steady place to live Within the past 12 months, did the food you bought not last and you didn't have the money to get more?: Never true Within the past 12 months, did you worry whether your food would run out before you got money to buy more?: Never true Do you have trouble paying for medicines?: No Do you have trouble getting transportation to medical appointments?: No Do you have trouble paying your heating and electricity bill?: No Do you have trouble taking care of your child, family member or friend?: No Do you have trouble with day-to-day activities such as bathing, preparing meals, shopping, managing finances, etc.?: No Are you currently unemployed and looking for a job?: I choose not to answer this question Are you interested in more education?: No Please select the resources that you would like help with: None Currently or been in a relationship where the following occur: No concerns reported THRIVE Score: 0 AUDIT C Alcohol Use Questionnaire (AUDIT-C) 1. How often do you have a drink containing alcohol?: Never 3. How often do you have six or more drinks on one occasion?: Never Total Score: 0 Score Reviewed/Action Taken: Yes SUSAN-7 AMB Questionnaire SUSAN-7 Date SUSAN - 7 assessed: 12/25/23 Feeling nervous, anxious, or on edge: 0 = Not at all Not being able to stop or control worryin = Not at all Worrying too much about different things: 0 = Not at all Trouble relaxin = Not at all Being so restless that it is hard to sit still: 0 = Not at all Becoming easily annoyed or irritable: 0 = Not at all Feeling afraid as if something awful might happen: 0 = Not at all Total SUSAN-7 score (0-4 normal; 5-9 mild; 10-14 moderate; 15-21 severe): 0 Source: Developed by Drs. Arthur Duran, Amira Brownlee, Nikos Pelayo and colleagues, with an educational beatriz from [employer]. Review of Systems Const Denies chills, Denies fatigue, Denies fever(s) and Denies headache(s) (controlled) ENT Denies dysphagia, Denies dizziness, Denies otalgia, Denies headache(s) (controlled), Reports neck pain, Denies odynophagia and Denies sore throat Card Denies chest pain, Denies lightheadedness, Denies palpitations and Denies dyspnea Resp Denies chest congestion, Denies cough, Denies dyspnea and Denies wheezing GI Denies abdominal pain, Reports constipation (chronic), Denies dysphagia, Denies diarrhea, Denies nausea, Denies odynophagia and Denies vomiting Denies difficulty voiding, Denies nocturia, Denies dysuria and Denies urinary urgency Musc Reports back pain (chronic), Reports neck pain, Reports radiating pain into limb (down right leg and into the foot) and Denies tingling Skin/Breast Denies rash Neuro Denies dizziness, Denies headache(s) (controlled) and Denies tingling Endo Denies fatigue and Denies palpitations Aller/Immun Denies wheezing Physical exam (Primary Care) Vital Signs: Last Vital Signs Pulse 63 12/25/23 09:28 BP 120/80 12/25/23 09:28 Pulse Ox 98 12/25/23 09:28 Oxygen Delivery Method Room Air 12/25/23 09:28 BMI result Body Mass Index 32.2 Tobacco/Smoking Status: Tobacco use Status Tobacco use date assessed 12/25/23 12/25/23 09:33 Patient Tobacco Use Status Never used Tobacco 12/25/23 09:33 e-Cigarette/Vaping Use Never Used 12/25/23 09:33 PHQ-9: PHQ-9 Score PHQ-9: Total score 0 12/25/23 10:16 Depression Screening Interpretation: Negative Thrive Assessment: Date of Thrive Assessment Date Thrive assessed 12/25/23 12/25/23 09:33 Currently or been in a relationship where the following occur: No concerns reported Const General: no acute distress and alert HENMT Ears: TM's normal bilaterally and EAC's normal Throat: Yes posterior oropharynx normal and Yes tonsils normal (no TP congestion noted) Neck Neck: Yes no lymphadenopathy and Yes supple Thyroid: Thyroid normal Resp Auscultation: clear to auscultation bilaterally, no rales and no wheezes Cardio Rate: regular rate Rhythm: regular rhythm Heart sounds: no murmurs GI Palpation (GI): Soft to palpation and nontender Auscultation: normal bowel sounds General: Yes no CVA tenderness Back/Spine/Pelvis Back: no CVA tenderness Cervical Spine: Cervical spine tenderness Thoracic/Lumbar Spine: paraspinal muscle tenderness on the right in the upper lumbar, in the mid lumbar and in the lower lumbar and lumbar spinal tenderness Skin Rashes: no rashes Extrem General: Yes no clubbing, cyanosis or edema Office Procedures Flu Questionnaire Does the patient have a severe egg allergy?: No Does the patient have severe life threatening allergies?: No Does the patient have a fever or illness today?: No Has the patient ever had Guillain-Wawarsing Syndrome?: No Has the patient ever had any past reaction to a flu shot?: No Immunizations Fluarix Triv 2201-3579 (PF) 45 mcg (15 mcg x 3)/0.5 mL IM syringe Performing Provider: Juve Crawford MD [facility] [place] [facility] Administered by: JACKY Byrne on 12/25/23 09:47 Dose Route Admin Location Dispensed Lot Number Expiration Date NDC Cable Dispatcher 0.5 mL IM Left Deltoid 0.5 mL [id number] 09/14/24 53044-488-70 [employer] VIS Given Date VIS Provided VIS Publication Date 12/25/23 Single Vaccine 20 Eligibility Eligibility Date Funding Source Not [facility] Eligible 12/25/23 Private Results Reviewed Results Reviewed: Laboratory Tests 12/16/23 12/16/23 07:19 07:23 WBC 8.7 Hgb 11.2 L Hct 35.7 L Plt Count 312 Sodium 140 Potassium 4.0 Creatinine 0.81 Estimated GFR > 60 Fasting Glucose 89 Hemoglobin A1c % 5.1 Calcium 9.3 AST 23 ALT 15 Triglycerides 97 Cholesterol 128 LDL Cholesterol, Calc 49 HDL Cholesterol 60 TSH 2.38 Free T4 0.75 Ur Specific [place] 1.020 Urine Protein Negative Urine Glucose (UA) Negative Urine Blood Negative Urine Nitrite Negative Ur Leukocyte Esterase Negative Microalb/Creat Ratio 5.7 Coding Level of Care Code Est Pt Level 4 (35283) Diagnoses Pure hypercholesterolemia E78.00 Type 2 diabetes mellitus without complication, without long-term current use of insulin E11.9 Diabetes mellitus type: type 2 Diabetes mellitus halfway insulin use: without halfway use Diabetes mellitus complication status: without complication Hypothyroidism (acquired) E03.9 Migraine without status migrainosus, not intractable, unspecified migraine type G43.909 Migraine type: unspecified Status migrainosus presence: without status migrainosus Intractability: not intractable Chronic idiopathic constipation K59.04 Gastroesophageal reflux disease without esophagitis K21.9 Esophagitis presence: without esophagitis Anemia, unspecified type D64.9 Anemia type: unspecified type B12 deficiency E53.8 Vitamin D deficiency E55.9 Allergic rhinitis, unspecified seasonality, unspecified trigger J30.9 Allergic rhinitis trigger: unspecified Allergic rhinitis seasonality: unspecified Degeneration of intervertebral disc of lumbar region with discogenic back pain M51.360 Disc-related pain type: discogenic back pain only Spondylosis of cervical spine without myelopathy M47.812 Insomnia, unspecified type G47.00 Insomnia type: unspecified Anxiety F41.9 Obesity (BMI 30-39.9) E66.9 Assessment & Plan Assessment & Plan (1) Pure hypercholesterolemia: Code(s): E78.00 - Pure hypercholesterolemia, unspecified Category: Medical Plan: Results of her labs done yesterday reviewed and discussed with patient Reinforced low cholesterol diet Continue Rosuvastatin 5 mg QD Will recheck her labs and fasting lipids in 3 months for follow up (2) Diabetes mellitus: Code(s): E11.9 - Type 2 diabetes mellitus without complications Category: Medical Qualifiers: Diabetes mellitus type: type 2 Diabetes mellitus ocean transportation intermediary insulin use: without ocean transportation intermediary use Diabetes mellitus complication status: without complication Qualified Code(s): E11.9 - Type 2 diabetes mellitus without complications Plan: Her HgbA1c remains normal at 5.1% on her labs done last week; was previously at 5.2% a few months ago - goal is <6.5% Reinforced diabetic diet Continue Acarbose 100 mg TID Follow up with endocrinology as needed - has reportedly been advised by endocrinology that since her diabetes has been very well controlled, she can just follow up with her PCP and see them only on an as-needed basis (3) Hypothyroidism (acquired): Code(s): E03.9 - Hypothyroidism, unspecified Category: Medical Plan: Her TFTs remain normal on her recent labs Continue Levothyroxine 50 mcg QD Will continue to monitor her TFTs regularly (4) Migraine: Code(s): G43.909 - Migraine, unspecified, not intractable, without status migrainosus Category: Medical Qualifiers: Migraine type: unspecified Status migrainosus presence: without status migrainosus Intractability: not intractable Qualified Code(s): G43.909 - Migraine, unspecified, not intractable, without status migrainosus Plan: Reinforced avoidance of potential migraine triggers States that her migraine headaches have been stable on her current prophylactic Rx - continue Topiramate 100 mg Q HS (5) Chronic idiopathic constipation: Code(s): K59.04 - Chronic idiopathic constipation Category: Medical Plan: Reinforced increased oral fluids and dietary fiber Continue Linzess 290 mcg QD S/P screening colonoscopy on 11/08/22 - recommend repeat colonoscopy in 2 to 3 years due to suboptimal prep Follow up with GI as scheduled (6) GERD (gastroesophageal reflux disease): Code(s): K21.9 - Gastro-esophageal reflux disease without esophagitis Category: Medical Qualifiers: Esophagitis presence: without esophagitis Qualified Code(s): K21.9 - Gastro-esophageal reflux disease without esophagitis Plan: Dietary restrictions reinforced Continue Omeprazole 40 mg QD Follow up with GI as scheduled (7) Anemia: Code(s): D64.9 - Anemia, unspecified Category: Medical Qualifiers: Anemia type: unspecified type Qualified Code(s): D64.9 - Anemia, unspecified Plan: Patient is still mildly anemic but her H/H have remained stable Continue Ferrous sulfate 325 mg QD and Vitamin B12 1000 mcg QD Will continue to monitor her CBC regularly (8) B12 deficiency: Code(s): E53.8 - Deficiency of other specified B group vitamins Category: Medical Plan: Continue Vitamin B12 tablets 1000 mcg QD (9) Vitamin D deficiency: Code(s): E55.9 - Vitamin D deficiency, unspecified Category: Medical Plan: Continue OTC Vitamin D supplements daily (10) Allergic rhinitis: Code(s): J30.9 - Allergic rhinitis, unspecified Category: Medical Qualifiers: Allergic rhinitis trigger: unspecified Allergic rhinitis seasonality: unspecified Qualified Code(s): J30.9 - Allergic rhinitis, unspecified Plan: Continue Fluticasone 50 mcg nasal spray QD PRN and Cetirizine 10 mg QD PRN (11) Lumbar degenerative disc disease: Code(s): M51.36 - Other intervertebral disc degeneration, lumbar region Category: Medical Qualifiers: Disc-related pain type: discogenic back pain only Qualified Code(s): M51.360 - Other intervertebral disc degeneration, lumbar region with discogenic back pain only Plan: Reinforced activity and weight-lifting restrictions to minimize aggravating her low back pain Repeat lumbar spine x-rays done in April 2021 revealed (+) chronic changes of lumbar spine DDD She was sent for lumbar spine MRI for further evaluation but patient reportedly missed her appt and she has not rescheduled Continue Ibuprofen 800 mg TID with food PRN for pain and Tramadol 50 mg 1 to 2 times a day ONLY as needed for SEVERE pain (12) Spondylosis of cervical spine without myelopathy: Code(s): M47.812 - Spondylosis without myelopathy or radiculopathy, cervical region Category: Medical Plan: She was seen by pain management a few months ago and recommended physical therapy and other modalities to help with her neck pain; recommended NO opioids as they do not think patient's current symptoms warrant Tx with long-term opioids She has been reportedly advised to follow up with them only on an as needed basis (13) Insomnia: Code(s): G47.00 - Insomnia, unspecified Category: Medical Qualifiers: Insomnia type: unspecified Qualified Code(s): G47.00 - Insomnia, unspecified Plan: Sleep hygiene reinforced Continue Amitriptyline 25 mg Q HS (14) Anxiety: Code(s): F41.9 - Anxiety disorder, unspecified Category: Medical Plan: Continue Alprazolam 1 mg TID PRN Follow up with psychiatry as scheduled (15) Obesity (BMI 30-39.9): Code(s): E66.9 - Obesity, unspecified Category: Medical Plan: Reinforced diet/exercise as tolerated/lose weight Plan As requested, flu vaccine given to patient today Follow up in 3 months Orders: Orders Influenza [id number] Immunization Today Z23 - Encounter for immunization Complete Blood Count Auto Diff 3 Months D64.9 - Anemia, unspecified Lipid Panel 3 Months E78.00 - Pure hypercholesterolemia, unspecified Hemoglobin A1c 3 Months E11.9 - Type 2 diabetes mellitus without complications Free T4 (Free Thyroxine) 3 Months E03.9 - Hypothyroidism, unspecified Vitamin D 25-OH Total 3 Months E55.9 - Vitamin D deficiency, unspecified Comprehensive [place]. Panel Fast 3 Months E78.00 - Pure hypercholesterolemia, unspecified Thyroid Stimulating Hormone 3 Months E03.9 - Hypothyroidism, unspecified UA CC w/rflx Micro + Cult 3 Months R30.0 - Dysuria Medications: Refilled levothyroxine 50 mcg PO DAILY 90 days 90 tabs 1RF E03.9 - Hypothyroidism, unspecified cetirizine 10 mg PO DAILY 90 days PRN 90 tabs 1RF Allergy Symptoms ibuprofen TAKE WITH FOOD 800 mg PO TID 30 days PRN 90 tabs 3RF fever or pain
== END 2023-12-25 10:25 | disposition home or self-care (01) ==
PROVIDERS: PCP Internal Medicine; Visit Provider Internal Medicine
DX: E11.9 Type 2 diabetes mellitus without complications (principal); E78.00 Pure hypercholesterolemia, unspecified; E03.9 Hypothyroidism, unspecified; G43.909 Migraine, unspecified, not intractable, without status migrainosus; K59.04 Chronic idiopathic constipation; K21.9 Gastro-esophageal reflux disease without esophagitis; D64.9 Anemia, unspecified; E53.8 Deficiency of other specified B group vitamins; E55.9 Vitamin D deficiency, unspecified; J30.9 Allergic rhinitis, unspecified; M51.360 Other intervertebral disc degeneration, lumbar region with discogenic back pain only; M47.812 Spondylosis without myelopathy or radiculopathy, cervical region

== ENCOUNTER → 2023-12-25 09:27 | Outpatient (BNVA) | payer MEDICARE, MEDICAID, SELFPAY | PROVIDERS: PCP Internal Medicine; Visit Provider Internal Medicine | DX: Z23 Encounter for immunization (principal); E78.00 Pure hypercholesterolemia, unspecified; E11.9 Type 2 diabetes mellitus without complications; E03.9 Hypothyroidism, unspecified; G43.909 Migraine, unspecified, not intractable, without status migrainosus; K59.04 Chronic idiopathic constipation; K21.9 Gastro-esophageal reflux disease without esophagitis; D64.9 Anemia, unspecified; E53.8 Deficiency of other specified B group vitamins; E55.9 Vitamin D deficiency, unspecified; J30.9 Allergic rhinitis, unspecified; M51.360 Other intervertebral disc degeneration, lumbar region with discogenic back pain only; M47.812 Spondylosis without myelopathy or radiculopathy, cervical region; F41.9 Anxiety disorder, unspecified; E66.9 Obesity, unspecified | CPT/HCPCS: 90471; 90656; 96127; 99212 ==

== ENCOUNTER 2023-12-26 20:06 | Emergency (ER) | payer MEDICARE, MEDICAID, SELFPAY ==
[2023-12-26 20:11] VITALS: BP 114/58; PULSE 75; RESP 18; TEMP 36.4; O2SAT 96; BMI 32.7
--- NOTE | 2023-12-26 20:15 | ED_ITS ---
HPI - General Adult General Chief complaint: Abdominal Pain Stated complaint: food poisoning/nauseous-weak Related Data Home Medications ?Medication ?Instructions ?Recorded ?Confirmed alprazolam 1 mg tablet 1 mg PO TID PRN Anxiety 02/10/20 12/25/23 clonidine HCl 0.1 mg tablet 0.1 mg PO DAILY anxiety 01/02/21 12/25/23 levonorgestrel 21 mcg/24 hr (up to 1 device intrauterine ONCE 02/19/22 12/25/23 8 years) 52 mg intrauterine device (Mirena) ipratropium bromide 42 mcg (0.06 1 spray intranasal BID 05/23/22 12/25/23 %) nasal spray melatonin 5 mg tablet 5 - 10 mg PO BEDTIME PRN insomnia 05/23/22 12/25/23 multivitamin-ferrous 1 tab PO DAILY 09/11/22 12/25/23 fumarate-folic acid 18 mg-400 mcg tablet (Certavite-Antioxidant) Previous Rx's ?Medication ?Instructions ?Recorded blood-glucose meter (FreeStyle #1 ea 03/15/22 Lite Meter kit) cyanocobalamin (vitamin B-12) 500 500 mcg sublingual .COMPLEX 30 07/03/22 mcg sublingual tablet days #20 tabs ferrous sulfate 325 mg (65 mg 325 mg PO DAILY #60 tabs 07/04/22 iron) tablet mometasone 0.1 % topical cream 1 appl topical DAILY PRN rash #45 09/25/22 grams topiramate 100 mg tablet 100 mg PO BEDTIME 90 days #90 tabs 10/24/22 fluticasone propionate 50 1 spray intranasal DAILY #48 mL 01/17/23 mcg/actuation nasal spray,suspension oxybutynin chloride 10 mg 10 mg PO DAILY #90 tabs 01/17/23 tablet,extended release 24 hr pyridoxine (vitamin B6) 100 mg 100 mg PO DAILY #90 tabs 01/17/23 tablet alcohol swabs (Alcohol Pads) 1 pad topical TID 30 days #100 ea 05/06/23 rosuvastatin 5 mg tablet 5 mg PO DAILY #90 tabs 07/04/23 ibuprofen 600 mg tablet 600 mg PO Q8H PRN pain #14 tabs 07/13/23 bisacodyl 5 mg tablet,delayed 5 - 10 mg (1 - 2 x 5 mg) PO 07/16/23 release (Laxative (bisacodyl)) BEDTIME for constipation #60 tabs dicyclomine 20 mg tablet 20 mg PO QID PRN for abdominal 07/16/23 pain #360 tabs hydrocortisone 2.5 % topical cream 1 appl [place] BID hemorrhoids #30 grams 07/16/23 with perineal applicator (Proctosol HC) linaclotide 290 mcg capsule 290 mcg PO DAILY 30 days #30 caps 07/16/23 (Linzess) metoclopramide HCl 10 mg tablet 10 mg PO QIDACHS Nausea #120 tabs 07/16/23 (Reglan) simethicone 180 mg capsule 180 mg PO QID 30 days #120 caps 07/16/23 meloxicam 15 mg tablet 15 mg PO DAILY #30 tabs 08/08/23 blood sugar diagnostic (FreeStyle #100 ea 08/26/23 Lite Strips) lancets 28 gauge (FreeStyle #100 ea 08/26/23 Lancets) dexlansoprazole 60 mg 60 mg PO DAILY #90 caps 10/16/23 capsule,biphase delayed release tramadol 50 mg tablet See Rx Instructions .Route 12/02/23 .COMPLEX pain 30 days #30 tabs acarbose 100 mg tablet 100 mg PO TID #90 tabs 12/20/23 cetirizine 10 mg tablet 10 mg PO DAILY PRN Allergy 12/25/23 Symptoms 90 days #90 tabs ibuprofen 800 mg tablet 800 mg PO TID PRN fever or pain 30 12/25/23 days #90 tabs levothyroxine 50 mcg tablet 50 mcg PO DAILY 90 days #90 tabs 12/25/23 Allergies Allergy/AdvReac Type Severity Reaction Status Date / Time lisinopril [LISINOPRIL] Allergy Severe ANAPYHLAXIS, Verified 12/26/23 20:13 swelling metformin [METFORMIN] Allergy Severe ANAPHYLAXIS, Verified 12/26/23 20:13 diarrhea sumatriptan [From IMITREX] Allergy Severe ANAPHYLAXIS, Verified 12/26/23 20:13 sedation PMF Past Medical History Medical History ASCUS of cervix with negative high risk HPV Hypothyroidism (acquired) Renal calculi Anemia Vitamin D deficiency Pure hypercholesterolemia Obesity (BMI 30-39.9) Costochondritis Lumbar degenerative disc disease Migraine Allergic rhinitis Diabetes mellitus Occipital neuralgia of left side Chronic pain syndrome Spondylosis of cervical spine without myelopathy Type 2 diabetes mellitus in remission Arthritis EKG abnormalities Anal fissure Renal stones Gastroparesis Hepatomegaly Leukocytosis MIO on CPAP Insomnia Anxiety Constipation GERD (gastroesophageal reflux disease) B12 deficiency Proteinuria Type 2 diabetes mellitus with other diabetic kidney complication Dyslipidemia Hypoglycemia after GI (gastrointestinal) surgery Surgical History H/O colonoscopy H/O gastric bypass History of tubal ligation Hx of lithotripsy History of umbilical hernia Hx of section History of esophagogastroduodenoscopy (EGD) Hx of bilateral breast reduction surgery Hx of cholecystectomy Family History Family History Father Liver cancer Hypertension Diabetes mellitus CVD (cardiovascular disease) Liver failure Mother Hypercholesterolemia Breast cancer Asthma Depression Maternal Grandmother Diabetes mellitus Hypertension Paternal Grandmother Diabetes mellitus Hypertension Social History Social History Household Members: Significant Other Housing: House Alcohol intake: never Patient Tobacco Use Status: Never used Tobacco e-Cigarette/Vaping Use: Never Used Second Hand Smoke Exposure: Yes Advance Directives: No Advance Directives Information Provided: Yes service: No Current occupational status: disabled Cognitive needs: No Hearing needs: No Vision needs: Yes Physical Exam ED Vital Signs: Vital Signs - 24 hr 12/26/23 20:11 Temperature 97.5 F Pulse Rate 75 Respiratory Rate 18 Blood Pressure 114/58 L Pulse Oximetry 96 Oxygen Delivery Method Room Air BMI result Body Mass Index 32.7 Course Course Course Narrative: This is a rapid medical exam performed by Bernardo Arteaga NP: Additional HPI, ROS, PE not included below will be deferred to primary provider. Patient is a 47-year-old female presenting to the ED with complaint of nausea and vomiting after frying pork chops in old oil, questioning food poisoning. Denies diarrhea, fever. Patient is A+Ox3, lungs clear throughout, RRR, ambulating independently with steady gait. No vomiting in triage. Plan: viral serology, labs, UA Medical Decision Making Lab Data 12/26/23 20:27 12/26/23 20:27 Labs: Lab Results 12/26/23 Range/Units 20:27 WBC 15.1 H (4.8-10.8) X10*3/uL RBC 4.01 L (4.20-5.50) X10*6/uL Hgb 11.2 L (12.0-16.0) g/dl Hct 34.7 L (37.0-47.0) % MCV 86.5 (80.0-98.0) fL MCH 27.9 (27.0-33.0) pg MCHC 32.3 (31.0-35.0) g/dl RDW 13.7 (11.0-16.0) % Plt Count 311 (160-400) X10*3/uL MPV 10.5 (9.4-12.3) fL Immature Gran % (Auto) 0.5 H (0.0-0.4) % Neut % (Auto) 84.4 H (45-73) % Lymph % (Auto) 6.2 L (20-40) % [place] % (Auto) 7.3 (2-11) % Eos % (Auto) 1.1 (0-4) % Baso % (Auto) 0.5 (0-2) % Lymph # (Auto) 0.9 L (1.2-4.9) X10*3/uL [place] # (Auto) 1.1 (0.1-1.2) X10*3/uL Eos # (Auto) 0.2 (0.0-0.4) X10*3/uL Baso # (Auto) 0.1 (0.0-0.2) X10*3/uL Abs Immat Gran (auto) 0.07 H (0.00-0.03) X10*3/uL Absolute Neuts (auto) 12.8 H (2.0-8.3) x10*3/uL Absolute Nucleated RBC 0.000 (0.0-0.012) X10*3/uL Nucleated RBC % (auto) 0.0 (0.0-0.2) /100WBC Sodium 141 (135-145) mmol/L Potassium 4.3 (3.3-5.1) mmol/L Chloride 112 H (96-108) mmol/L Carbon Dioxide 23 (22-29) mmol/L Anion Gap 10 L (12-20) BUN 18 H (9-16) mg/dL Creatinine 0.84 (0.5-1.4) mg/dL Estim Creat Clear Calc 76.2 Estimated GFR > 60 Random Glucose 90 (60-115) mg/dL Calcium 8.6 D (8.4-10.2) mg/dL Total Bilirubin 0.1 (0.0-1.0) mg/dL AST 30 (5-31) U/L ALT 20 (0-31) U/L Alkaline Phosphatase 77 (39-117) U/L Total Protein 7.4 (6.5-8.0) g/dL Albumin 4.0 (3.5-5.0) g/dL Amylase 88 (28-100) U/L Lipase 47 (8-78) U/L Beta HCG, Quant < 2 mIU/mL Influenza Type A (PCR) NEGATIVE (Negative) Influenza Type B (PCR) NEGATIVE (Negative) RSV RNA Qual (PCR) NEGATIVE (Negative) SARS-CoV-2 RNA (RT-PCR) NEGATIVE (Negative) Discharge Plan Discharge Clinical Impression: Nausea & vomiting Patient Disposition: Left W/O Completing Treatment Prescriptions: No Action (DME) blood-glucose meter [FreeStyle Lite Meter] Kit See Rx Instructions .ROUTE .MEDSUPPLY Qty: 1 0RF Rx Instructions: As directed once a day cyanocobalamin (vitamin B-12) 500 mcg tablet, sublingual 500 mcg sublingual .COMPLEX 30 Days Qty: 20 11RF Rx Instructions: 500 mcg sublingual daily, saturday - saturday; mometasone 0.1 % cream 1 appl topical DAILY PRN (Reason: rash) Qty: 45 1RF fluticasone propionate 50 mcg/actuation spray,suspension 1 spray intranasal DAILY Qty: 48 1RF alcohol swabs [Alcohol Pads] Pads, Medicated 1 pad topical TID 30 Days Qty: 100 12RF rosuvastatin 5 mg tablet 5 mg PO DAILY Qty: 90 3RF meloxicam 15 mg tablet 15 mg PO DAILY Qty: 30 0RF (DME) FreeStyle Lite Strips Strip See Rx Instructions .ROUTE .MEDSUPPLY Qty: 100 11RF Rx Instructions: test blood sugar once a day as instructed - frequent low blood sugar readings (DME) lancets [FreeStyle Lancets] 28 gauge misc See Rx Instructions .ROUTE .MEDSUPPLY Qty: 100 11RF Rx Instructions: test blood sugar once as instructed - frequent LOW blood sugar readings dexlansoprazole 60 mg capsule,biphase delayed releas 60 mg PO DAILY Qty: 90 2RF tramadol 50 mg tablet See Rx Instructions .ROUTE .COMPLEX 30 Days Qty: 30 0RF Rx Instructions: 1 tablet 1 to 2 times a day orally ONLY NEEDED for SEVERE PAIN; acarbose 100 mg tablet 100 mg PO TID Qty: 90 11RF Rx Instructions: 1/2 tab breakfast, 1 tab lunch and dinner, 1/2 tab for hs snack PO 4 times a day; ferrous sulfate 325 mg (65 mg iron) Tablet 325 mg PO DAILY Qty: 60 2RF Certavite-Antioxidant 18-400 mg-mcg Tablet 1 tab PO DAILY ibuprofen 600 mg tablet 600 mg PO Q8H PRN (Reason: pain) Qty: 14 0RF alprazolam 1 mg tablet 1 mg PO TID PRN (Reason: Anxiety) topiramate 100 mg tablet 100 mg PO BEDTIME 90 Days Qty: 90 1RF clonidine HCl 0.1 mg tablet 0.1 mg PO DAILY Mirena 20 mcg/24 hours (8 yrs) 52 mg intrauterine device 1 device intrauterine ONCE Qty: 1 0RF Mirena 20 mcg/24 hours (8 yrs) 52 mg intrauterine device 1 device intrauterine ONCE melatonin 5 mg tablet 5 - 10 mg PO BEDTIME PRN (Reason: insomnia) ipratropium bromide 42 mcg (0.06 %) spray,non-aerosol 1 spray intranasal BID oxybutynin chloride 10 mg tablet extended release 24hr 10 mg PO DAILY Qty: 90 3RF pyridoxine (vitamin B6) 100 mg tablet 100 mg PO DAILY Qty: 90 3RF levothyroxine 50 mcg tablet 50 mcg PO DAILY 90 Days Qty: 90 1RF cetirizine 10 mg tablet 10 mg PO DAILY PRN (Reason: Allergy Symptoms) 90 Days Qty: 90 1RF ibuprofen 800 mg tablet 800 mg PO TID PRN (Reason: fever or pain) 30 Days Qty: 90 3RF Rx Instructions: TAKE WITH FOOD bisacodyl [Laxative (bisacodyl)] 5 mg tablet,delayed release (DR/EC) 5 - 10 mg PO BEDTIME Qty: 60 6RF dicyclomine 20 mg tablet 20 mg PO QID PRN (Reason: for abdominal pain) Qty: 360 2RF hydrocortisone [Proctosol HC] 2.5 % cream with perineal applicator 1 appl [place] BID Qty: 30 6RF Rx Instructions: BE SURE TO INCLUDE RECTAL APPICATOR!! Linzess 290 mcg capsule 290 mcg PO DAILY 30 Days Qty: 30 6RF metoclopramide HCl [Reglan] 10 mg tablet 10 mg PO QIDACHS Qty: 120 6RF simethicone 180 mg capsule 180 mg PO QID 30 Days Qty: 120 6RF Rx Instructions: after meals Discharge Date/Time: 12/26/23 23:03
[2023-12-26 20:32] LABS: MANUAL DIFF FLAG NO
[2023-12-26 20:39] LABS: Basophils Absolute Auto 0.1 X10*3/uL (0.0-0.2); Basophils Percent Auto 0.5 % (0-2); Eosinophils Absolute Auto 0.2 X10*3/uL (0.0-0.4); Eosinophils Percent Auto 1.1 % (0-4); Hematocrit 34.7 % (37.0-47.0); Hemoglobin 11.2 g/dl (12.0-16.0); Imm Gran Abs Auto 0.07 X10*3/uL (0.00-0.03); Imm Gran Pct Auto 0.5 % (0.0-0.4); Lymphocytes Absolute Auto 0.9 X10*3/uL (1.2-4.9); Lymphocytes Percent Auto 6.2 % (20-40); Mean Corpuscular HGB Conc 32.3 g/dl (31.0-35.0); Mean Corpuscular Hemoglobin 27.9 pg (27.0-33.0); Mean Corpuscular Volume 86.5 fL (80.0-98.0); Mean Platelet Volume 10.5 fL (9.4-12.3); Monocytes Absolute Auto 1.1 X10*3/uL (0.1-1.2); Monocytes Percent Auto 7.3 % (2-11); Neutrophils Absolute Auto 12.8 x10*3/uL (2.0-8.3); Neutrophils Percent Auto 84.4 % (45-73); Platelet Count 311 X10*3/uL (160-400); Red Blood Count 4.01 X10*6/uL (4.20-5.50); Red Cell Distribution Width 13.7 % (11.0-16.0); White Blood Count 15.1 X10*3/uL (4.8-10.8)
[2023-12-26 20:49] LABS: Alanine Aminotransferase 20 U/L (0-31); Alkaline Phosphatase 77 U/L (39-117); Amylase 88 U/L (28-100); Anion Gap 10 (12-20); Aspartate Amino Transferase 30 U/L (5-31); Bilirubin Total 0.1 mg/dL (0.0-1.0); Blood Urea Nitrogen 18 mg/dL (9-16); Calcium 8.6 mg/dL (8.4-10.2); Carbon Dioxide 23 mmol/L (22-29); Chloride 112 mmol/L (96-108); Creatinine Clr Calc Pharmacy 76.2; Estimated Glomerular Filt Rate > 60; Glucose Random 90 mg/dL (60-115); Lipase 47 U/L (8-78); Potassium 4.3 mmol/L (3.3-5.1); Sodium 141 mmol/L (135-145); Total Protein 7.4 g/dL (6.5-8.0)
[2023-12-26 21:14] LABS: Influenza A PCR NEGATIVE (Negative); Influenza B PCR NEGATIVE (Negative); Resp Syncy Virus RNA Qual PCR NEGATIVE (Negative); SARS COV2 PCR INHOUSE NEGATIVE (Negative)
[2023-12-26 21:18] LABS: HCG Quantitative < 2 mIU/mL
== END 2023-12-26 23:03 | disposition left against medical advice (07) ==
PROVIDERS: Registered Nurse Emergency; Emergency Provider Emergency Medicine; PCP Internal Medicine
DX: R11.2 Nausea with vomiting, unspecified (principal); R53.1 Weakness; R10.2 Pelvic and perineal pain; Z79.899 Other long term (current) drug therapy; Z03.818 Encounter for observation for suspected exposure to other biological agents ruled out
CPT/HCPCS: 0241U; 36415; 80053; 82150; 83690; 84702; 85025; 99281; 99283

== ENCOUNTER 2024-01-09 09:18 | Outpatient (AMB) | payer MEDICARE, MEDICAID, SELFPAY ==
--- NOTE | 2024-01-09 09:24 | MHC.OFFVIS ---
Vital Signs 01/09/24 09:28 Height 5 ft Weight 167 lb 8.821 oz BMI 32.7 Intake Visit Reasons: vaginal lump Breast Splitter Required: Yes Breast Splitter Language: [employer] Sales Representative Services: Breast Splitter Present (in person) Breast Splitter Name: Sylvia RICO Information Interpreted: non-clinical & clinical Textile Machine Operator: Textile Machine Operator Present (Sylvia RICO) Accompanied by: Self / Same As Patient Allergies lisinopril [LISINOPRIL] Allergy (Severe, Verified 01/09/24 09:29) ANAPYHLAXIS, swelling metformin [METFORMIN] Allergy (Severe, Verified 01/09/24 09:29) ANAPHYLAXIS, diarrhea sumatriptan [From IMITREX] Allergy (Severe, Verified 01/09/24 09:) ANAPHYLAXIS, sedation HPI Comments Details: The patient is presenting with bilateral pelvic pain started 1-2 week ago. It's intermittent in nature lasting few seconds and occurs 3x/day. it is not associated with any constipation, dysuria, no vaginal discharge or bleeding, no n/v, no feverishness. In addition, the patient is complaining of months pubis lump that is tender that was triggered by right inguinal itching PFSH Medical History ASCUS of cervix with negative high risk HPV Hypothyroidism (acquired) Renal calculi Anemia Vitamin D deficiency Pure hypercholesterolemia Obesity (BMI 30-39.9) Costochondritis Lumbar degenerative disc disease Migraine Allergic rhinitis Diabetes mellitus Occipital neuralgia of left side Chronic pain syndrome Spondylosis of cervical spine without myelopathy Type 2 diabetes mellitus in remission Arthritis EKG abnormalities Anal fissure Renal stones Gastroparesis Hepatomegaly Leukocytosis MIO on CPAP Insomnia Anxiety Constipation GERD (gastroesophageal reflux disease) B12 deficiency Proteinuria Type 2 diabetes mellitus with other diabetic kidney complication Dyslipidemia Hypoglycemia after GI (gastrointestinal) surgery Surgical History H/O colonoscopy H/O gastric bypass History of tubal ligation Hx of lithotripsy History of umbilical hernia Hx of section History of esophagogastroduodenoscopy (EGD) Hx of bilateral breast reduction surgery Hx of cholecystectomy Family History Father Liver cancer Hypertension Diabetes mellitus CVD (cardiovascular disease) Liver failure Mother Hypercholesterolemia Breast cancer Asthma Depression Maternal Grandmother Diabetes mellitus Hypertension Paternal Grandmother Diabetes mellitus Hypertension Social History Household Members: Significant Other Housing: House Alcohol intake: never Patient Tobacco Use Status: Never used Tobacco e-Cigarette/Vaping Use: Never Used Second Hand Smoke Exposure: Yes service: No Current occupational status: disabled Cognitive needs: No Hearing needs: No Vision needs: Yes Female Reproductive History Menstrual Age of Menarche: 11 Review of Systems Const All systems reviewed & are unremarkable except as noted in HPI and below Physical Exam Vital Signs: BMI result Body Mass Index 32.7 General: Yes no CVA tenderness External Female Exam: normal external appearance and normal appearance of the urethra Speculum Exam - Vagina: normal appearance of the vagina, normal palpation, no lesions and no masses Speculum Exam - Cervix: normal appearance of the cervix, normal palpation, no lesions, no masses and nontender Bimanual exam- vagina & uterus: normal bimanual exam, normal palpation, uterine size normal, normal palpation, uterine shape normal, No Cervical tenderness present and non-tender Bimanual Exam- Adnexa, other: normal adnexae Back/Spine/Pelvis Back: no CVA tenderness Skin Other: Right inguinal candidiasis and mons pubis 1.5 cm with no evidence of cellulitis Office Procedures Incision/Drainage PHARMACY OPERATIONS COORDINATOR Incision/Drainage PHARMACY OPERATIONS COORDINATOR Details: Before the procedure was started d/w patient the procedure, alternatives (do nothing, medical rx), & all the risks associated with the procedure ( bleeding , infection, vulvar scarring, painful intercourse, injury to vessels, possible need for transfusion with all its risks) then patient signed the consent. Preoperative diagnosis: Right months pubis Abscess. Operation: Right months pubis Abscess I & D Post-operative diagnosis: Same Anesthesia: Lidocaine 1% 3cc used Procedure: The skin was prepped with Betadine, palpation was used for guidance, 11-blade was used to incise the skin contiguous with the abscess cavity. This yielded 2 cc of purulent fluid &substantially decompressed the swelling, a clean dressing was used at the end. Culture sent. The patient tolerated the procedure well. The patient was sent home in stable condition. Discharge Instructions: The patient was instructed to call if temp>100.4, abdominal pain, nausea/vomiting. This note was generated with a voice recognition program. Some errors may have been overlooked during the review of this note. Sometimes these errors may affect the content or meaning of a given sentence. [id number]&D of vulva/perineum All charges added?: Procedure code (CPT) selection complete Assessment & Plan Assessment & Plan (1) Vulvar abscess: Comment: Right mons pubis with no evidence of cellulitis Code(s): N76.4 - Abscess of vulva Category: Medical Plan: Discussed with the patient the finding on physical exam showing right months pubis abscess of 1.5 cm, with no evidence of cellulitis, recommended I&D I&D done, see procedure note (2) Skin candidiasis: Code(s): B37.2 - Candidiasis of skin and nail Category: Medical Plan: The patient was instructed to keep the area dry, use hair blower after showering, use baby powder without Talc and Desitin cream in addition to applying lotrisone cream BID x5 days (3) Pelvic pain: Code(s): R10.2 - Pelvic and perineal pain Category: Medical Plan: Urine dip and test done in the office were both negative. GC and chlamydia ordered and pelvic ultrasound ordered. Discussed with the patient the differential diagnosis of pelvic pain including but not limited to adnexal, uterine masses, pelvic infections (PID), GI the (Irritable bowel syndrome, diverticulitis, others), musculoskeletal, myofascial pain abdominal wall , adhesions, endometriosis, psychological and others causes. Will check results and treat accordingly. All questions answered, the patient verbalized understanding. Instructed the patient to schedule follow-up appointment in 2 weeks Orders: Orders US pelvic and transvaginal Today R10.2 - Pelvic and perineal pain Incision & Drainage PHARMACY OPERATIONS COORDINATOR Today N76.4 - Abscess of vulva CT NG by PCR Today B37.2 - Candidiasis of skin and nail, N76.4 - Abscess of vulva Routine Culture w Gram Stain Today B37.2 - Candidiasis of skin and nail, N76.4 - Abscess of vulva Medications: New clotrimazole-betamethasone 1-0.05 % 1 appl topical BID 5 days 45 grams 0RF Coding Level of Care Code Est Pt Level 3 (77440) Procedure Only Diagnoses Vulvar abscess N76.4 Skin candidiasis B37.2 Pelvic pain R10.2 CPT Codes Incision/Drainage PHARMACY OPERATIONS COORDINATOR - IDGYN 1: 48257-F&D of vulva/perineum ([id number])
[2024-01-09 09:28] VITALS: BMI 32.7
== END 2024-01-09 09:55 | disposition home or self-care (01) ==
PROVIDERS: PCP Internal Medicine; Visit Provider Obstetrics & Gynecology
DX: R10.2 Pelvic and perineal pain (principal); N76.4 Abscess of vulva; B37.2 Candidiasis of skin and nail; Z32.02 Encounter for pregnancy test, result negative
CPT/HCPCS: 56405; 99213

== ENCOUNTER 2024-01-09 09:18 | Outpatient (REF) | payer MEDICARE, MEDICAID, SELFPAY ==
[2024-01-10 11:37] LABS: CT PCR NOT DETECTED (Not Detect.); NG PCR NOT DETECTED (Not Detect.)
== END 2024-01-09 09:19 | disposition home or self-care (01) ==
LOC: HO.LNP 09:18
PROVIDERS: PCP Internal Medicine; Visit Provider Obstetrics & Gynecology
DX: N76.4 Abscess of vulva (principal); B37.2 Candidiasis of skin and nail; R10.2 Pelvic and perineal pain
CPT/HCPCS: 56405; 81025; 87070; 87147; 87205; 87491; 87591; 99212

== ENCOUNTER 2024-01-14 10:27 | Outpatient (AMB) | payer MEDICARE, MEDICAID, SELFPAY ==
--- NOTE | 2024-01-14 10:31 | A.OFFVIS_ITS ---
Vital Signs 01/14/24 10:32 Height 5 ft Weight 169 lb 12.095 oz BMI 33.1 BP 112/67 Blood Pressure Location Lt brachial Position Sitting Pulse 68 Intake Visit Reasons: 6 month follow up paresis, GERD, CIC Intake Note: Ton presents in 6 months follow up of GERD and CIC. CC: She reports a lower abdominal cramp the other day. Denies other GI symptoms or concerns today. 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 Allergies lisinopril [LISINOPRIL] Allergy (Severe, Verified 01/14/24 10:49) ANAPYHLAXIS, swelling metformin [METFORMIN] Allergy (Severe, Verified 01/14/24 10:49) ANAPHYLAXIS, diarrhea sumatriptan [From IMITREX] Allergy (Severe, Verified 01/14/24 10:49) ANAPHYLAXIS, sedation HPI HPI 6 month follow up paresis, GERD, CIC: Details: Assessment & Plan (1) Chronic idiopathic constipation: Code(s): K59.04 - Chronic idiopathic constipation Category: Medical (2) GERD (gastroesophageal reflux disease): Code(s): K21.9 - Gastro-esophageal reflux disease without esophagitis Category: Medical Qualifiers: Esophagitis presence: without esophagitis Qualified Code(s): K21.9 - Gastro-esophageal reflux disease without esophagitis Plan She continues on Dexilant, LInzess 290, bisacodyl, simethicone, reglan, Proctosol cream and dicyclomine with good control of all of her GI conditions. The hemorrhoid cream really helped with the rectal itching. She will be due for colonoscopy in 2025 and will need 2 day prep. ROV 6 m os. Medications: Refilled bisacodyl (Laxative (bisacodyl)) 5 - 10 mg (1 - 2 x 5 mg) PO BEDTIME 60 tabs 6RF for constipation K59.04 - Chronic idiopathic constipation hydrocortisone 2.5% (Proctosol HC) BE SURE TO INCLUDE RECTAL APPICATOR!! 1 appl [place] BID 30 grams 6RF hemorrhoids K64.9 - Unspecified hemorrhoids linaclotide (Linzess) 290 mcg PO DAILY 30 caps 6RF 30 days K59.04 - Chronic idiopathic constipation metoclopramide HCl (Reglan) 10 mg PO QIDACHS 120 tabs 6RF Nausea K31.84 - Gastroparesis dexlansoprazole 60 mg PO DAILY 30 caps 6RF dicyclomine 20 mg PO QID PRN 360 tabs 2RF for abdominal pain simethicone after meals 180 mg PO QID 120 caps 6RF 30 days R14.0 - Abdominal distension (gaseous) TODAY'S VISIT [place] #declines She is here today with a male family member who is supportive She continues on Dexilant, LInzess 290, bisacodyl, simethicone, reglan, Proctosol cream and dicyclomine with good control of all of her GI conditions. She had intermittent episodes of suprapubic cramping but these resolved well ut ilizing dicyclomine as needed. The hemorrhoid cream really helped with the rectal itching. She will be due for colonoscopy in 2025 and will need 2 day prep. ROV 6 mos. [facility] Medical History (Updated 01/14/24 @ 10:52 by LEONARDO Newell) Vulvovaginitis Vulvar abscess Encounter for removal of sutures Abdominal bloating Abdominal cramping Abdominal bloating Dyslipidemia Type 2 diabetes mellitus in remission Lumbar degenerative disc disease Recurrent chest pain Foreign body in throat Fatigue Myalgia Lumbar back pain with radiculopathy affecting right lower extremity Rhinitis Cough Well woman exam ASCUS of cervix with negative high risk HPV Subclinical hypothyroidism Hypothyroidism Sinus pain Internal derangement of right knee Lumbar radicular pain Renal calculi History of kidney stones Encounter for IUD insertion IUD check up Pre-op examination Hypothyroidism (acquired) Anemia Vitamin D deficiency Pure hypercholesterolemia Obesity (BMI 30-39.9) Costochondritis Migraine Allergic rhinitis Diabetes mellitus Occipital neuralgia of left side Chronic pain syndrome Spondylosis of cervical spine without myelopathy Arthritis EKG abnormalities Anal fissure Renal stones Gastroparesis Hepatomegaly Leukocytosis MIO on CPAP Insomnia Anxiety Constipation GERD (gastroesophageal reflux disease) B12 deficiency Proteinuria Type 2 diabetes mellitus with other diabetic kidney complication Hypoglycemia after GI (gastrointestinal) surgery Surgical History H/O colonoscopy H/O gastric bypass History of tubal ligation Hx of lithotripsy History of umbilical hernia Hx of section History of esophagogastroduodenoscopy (EGD) Hx of bilateral breast reduction surgery Hx of cholecystectomy Family History Father Liver cancer Hypertension Diabetes mellitus CVD (cardiovascular disease) Liver failure Mother Hypercholesterolemia Breast cancer Asthma Depression Maternal Grandmother Diabetes mellitus Hypertension Paternal Grandmother Diabetes mellitus Hypertension Social History Household Members: Significant Other Housing: House Alcohol intake: never Patient Tobacco Use Status: Never used Tobacco e-Cigarette/Vaping Use: Never Used Second Hand Smoke Exposure: Yes service: No Current occupational status: disabled Cognitive needs: No Hearing needs: No Vision needs: Yes Female Reproductive History Menstrual Age of Menarche: 11 Review of Systems Const Denies fatigue, Denies fever(s), Denies night sweats, Denies poor appetite and Denies weight loss ENT Reports Normal hearing present, Denies dental pain, Denies dysphagia, Denies hearing loss, Denies mouth pain, Denies odynophagia, Denies throat swelling, Denies tongue swelling and Reports other (Dentition adequate) Card Reports no additional complaints Resp Reports no additional complaints GI Details: Denies abdominal pain, Denies melena, Reports bloating, Denies hematochezia, Reports constipation, Reports GI cramping, Denies dysphagia, Denies excessive flatus, Denies early satiety, Reports heartburn, Denies diarrhea, Denies nausea, Denies odynophagia, Denies vomiting and Denies hematemesis Skin/Breast Denies pruritus, Denies lesions, Denies rash and Denies jaundice Neuro Reports Normal hearing present and Denies Abnormal speech present Endo Denies fatigue Aller/Immun Denies throat swelling and Denies tongue swelling Physical Exam Vital Signs: Last Vital Signs Pulse 68 01/14/24 10:32 BP 112/67 01/14/24 10:32 BMI result Body Mass Index 33.1 Const General: cooperative, no acute distress, well developed and well groomed Nutritional Appearance: well nourished and obese Orientation/consciousness: oriented to person, oriented to place and oriented to time Limitations: No language barrier HEENT Head: Yes normocephalic and Yes atraumatic Eyes General: appearance normal, both eyes and all related structures Pupils: Equal, round and reactive pupils present Neck Neck: Yes normal visual inspection and Yes no lymphadenopathy Thyroid: Thyroid normal Resp Effort & Inspection: normal respiratory effort and able to speak in complete sentences Auscultation: clear to auscultation bilaterally Cardio Rate: regular rate Rhythm: regular rhythm Heart sounds: Normal, physiologic split S2 sound present Peripheral pulses: radial pulses present and posterior tibial pulses present GI Inspection: No distended, No Abdominal panniculus present and Yes obesity Palpation (GI): Soft to palpation, nontender, no guarding, not rigid and No hepatosplenomegaly present Percussion: Yes normal to percussion Auscultation: normal bowel sounds Rectal Exam - Female: deferred Skin General skin exam: no rashes or lesions noted, turgor normal, skin not dry, no jaundice, No spider nevi and no striae Rashes: no rashes Nails: normal Neuro General: oriented to person, oriented to place and oriented to time Cranial nerves: Yes Equal, round and reactive pupils present and Yes Normal hearing present Speech: No Abnormal speech present Extrem General: Yes normal to inspection, No clubbing, No cyanosis and No edema Psych Appearance: grossly normal and well kempt Mental Status: mental status grossly normal Speech and movement: Normal speech and movement present Affect: normal affect Attitude: cooperative Thought process: Normal thought process present and not confabulating Thought content: Normal thought content present Insight: Limited insight present (Psych) Judgement: Limited judgement present (Psych) Assessment & Plan Assessment & Plan (1) Gastroparesis: Code(s): K31.84 - Gastroparesis Category: Medical (2) GERD (gastroesophageal reflux disease): Code(s): K21.9 - Gastro-esophageal reflux disease without esophagitis Category: Medical Qualifiers: Esophagitis presence: without esophagitis Qualified Code(s): K21.9 - Gastro-esophageal reflux disease without esophagitis (3) Chronic idiopathic constipation: Code(s): K59.04 - Chronic idiopathic constipation Category: Medical Plan [place] #declines She is here today with a male family member who is supportive She continues on Dexilant, LInzess 290, bisacodyl, simethicone, reglan, Proctosol cream and dicyclomine with good control of all of her GI conditions. She had intermittent episodes of suprapubic cramping but these resolved well utilizing dicyclomine as needed. The hemorrhoid cream really helped with the rectal itching. She will be due for colonoscopy in 2025 and will need 2 day prep. ROV 6 mos. Medications: Refilled bisacodyl (Laxative (bisacodyl)) 5 - 10 mg (1 - 2 x 5 mg) PO BEDTIME 60 tabs 6RF for constipation K59.04 - Chronic idiopathic constipation dexlansoprazole 60 mg PO DAILY 90 caps 2RF hydrocortisone 2.5% (Proctosol HC) BE SURE TO INCLUDE RECTAL APPICATOR!! 1 appl [place] BID 30 grams 6RF hemorrhoids K64.9 - Unspecified hemorrhoids linaclotide (Linzess) 290 mcg PO DAILY 30 caps 6RF 30 days K59.04 - Chronic idiopathic constipation simethicone after meals 180 mg PO QID 120 caps 6RF 30 days R14.0 - Abdominal distension (gaseous) dicyclomine 20 mg PO QID PRN 360 tabs 2RF for abdominal pain metoclopramide HCl (Reglan) 10 mg PO QIDACHS 120 tabs 6RF Nausea K31.84 - Gastroparesis Coding Level of Care Code Est Pt Level 3 (65092) Diagnoses Gastroparesis K31.84 Gastroesophageal reflux disease without esophagitis K21.9 Esophagitis presence: without esophagitis Chronic idiopathic constipation K59.04
[2024-01-14 10:32] VITALS: BP 112/67; PULSE 68; BMI 33.1
== END 2024-01-14 13:45 | disposition home or self-care (01) ==
LOC: HO.HGI 10:28
PROVIDERS: PCP Internal Medicine; Visit Provider Nurse Practitioner
DX: K31.84 Gastroparesis (principal); K21.9 Gastro-esophageal reflux disease without esophagitis; K59.04 Chronic idiopathic constipation
CPT/HCPCS: 99213

== ENCOUNTER → 2024-01-14 10:27 | Outpatient (BNVA) | payer MEDICARE, MEDICAID, SELFPAY | PROVIDERS: PCP Internal Medicine; Visit Provider Nurse Practitioner | DX: K31.84 Gastroparesis (principal); K21.9 Gastro-esophageal reflux disease without esophagitis; K59.04 Chronic idiopathic constipation | CPT/HCPCS: 99212 ==

== ENCOUNTER 2024-01-22 11:27 | Outpatient (REF) | payer MEDICARE, MEDICAID, SELFPAY | END 2024-01-22 11:28 | disposition home or self-care (01) | LOC: HO.US 11:27 | PROVIDERS: PCP Internal Medicine; Visit Provider Obstetrics & Gynecology | DX: R10.2 Pelvic and perineal pain (principal) | CPT/HCPCS: 76830; 76856 ==

== ENCOUNTER 2024-03-20 09:25 | Outpatient (AMB) | payer MEDICARE, MEDICAID, SELFPAY ==
--- NOTE | 2024-03-20 09:39 | MHC.OFFVIS ---
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 Allergies lisinopril [LISINOPRIL] Allergy (Severe, Verified 03/20/24 09:40) ANAPYHLAXIS, swelling metformin [METFORMIN] Allergy (Severe, Verified 03/20/24 09:40) ANAPHYLAXIS, diarrhea sumatriptan [From IMITREX] Allergy (Severe, Verified 03/20/24 09:40) ANAPHYLAXIS, sedation Medication List - Last Reconciled 03/23/24 by Michelle Schulte MD acarbose 100 mg PO TID alcohol swabs (Alcohol Pads) 1 pad topical TID 30 days alprazolam 1 mg PO TID PRN bisacodyl (Laxative (bisacodyl)) 5 - 10 mg (1 - 2 x 5 mg) PO BEDTIME blood sugar diagnostic (FreeStyle Lite Strips) test blood sugar once a day as instructed - frequent low blood sugar readings blood-glucose meter (FreeStyle Lite Meter kit) As directed once a day cetirizine 10 mg PO DAILY PRN 90 days clonidine HCl 0.1 mg PO DAILY clotrimazole-betamethasone 1-0.05 % 1 appl topical BID 5 days cyanocobalamin (vitamin B-12) 500 mcg sublingual daily, saturday - saturday; 30 days dexlansoprazole 60 mg PO DAILY dicyclomine 20 mg PO QID PRN ferrous sulfate 325 mg PO DAILY fluticasone propionate 50 mcg/actuation 1 spray intranasal DAILY hydrocortisone 2.5% (Proctosol HC) 1 appl [place] BID ibuprofen 600 mg PO Q8H PRN ibuprofen 800 mg PO TID PRN 30 days ipratropium bromide 1 spray intranasal BID lancets (FreeStyle Lancets) test blood sugar once as instructed - frequent LOW blood sugar readings levonorgestrel (Mirena) 1 device intrauterine ONCE levothyroxine 50 mcg PO DAILY 90 days linaclotide (Linzess) 290 mcg PO DAILY 30 days melatonin 5 - 10 mg PO BEDTIME PRN meloxicam 15 mg PO DAILY metoclopramide HCl (Reglan) 10 mg PO QIDACHS mometasone 0.1% 1 appl topical DAILY PRN [id number] acid 18-400 mg-mcg (Certavite-Antioxidant) 1 tab PO DAILY oxybutynin chloride ER 10 mg PO DAILY pyridoxine (vitamin B6) 100 mg PO DAILY rosuvastatin 5 mg PO DAILY simethicone 180 mg PO QID 30 days topiramate 100 mg PO BEDTIME 90 days tramadol 1 tablet 1 to 2 times a day orally ONLY NEEDED for SEVERE PAIN; 30 days HPI Comments Details: 03/20/24--Ton is a 48-year-old followed kidney stones and overactive bladder. I reviewed renal ultrasound from November there is a new complex renal cyst in the left kidney. We will get CT renal protocol for further evaluation. The patient states she is doing well with the oxybutynin. Renal US: 11/19/23--RIGHT KIDNEY: No hydronephrosis. No renal calculi. LEFT KIDNEY: 0.6 cm left renal upper pole calcification may represent a nonobstructing calculus or a calcification associated with a 1.6 cm upper pole cyst. The cyst was not appreciated on prior exams. Limited visualization. Review of chart: 01/17/2023?Ton is a 47-year-old female who presents today to the office for a follow-up. She is followed kidney stones and OAB. Prior gastric bypass surgery 2015 She was last seen by me on 01/08/2023. She has been taking oxybutynin with benefit improvement in urinary urgency She denies any burning with urination or any other urinary symptoms. She states that she is drinking adequate amount of fluids. She also mentions that she is adding lemonade to water. I reviewed renal ultrasound results 12/20/22-- No kidney stones noted. Imaging: renal U/S results 9.28.22- kidneys WNL, no recurrent stones. She is encouraged to CT Imaging showed 2 mm stone left kidney [facility] Medical History Vulvovaginitis Vulvar abscess Encounter for removal of sutures Abdominal bloating Abdominal cramping Abdominal bloating Dyslipidemia Type 2 diabetes mellitus in remission Lumbar degenerative disc disease Recurrent chest pain Foreign body in throat Fatigue Myalgia Lumbar back pain with radiculopathy affecting right lower extremity Rhinitis Cough Well woman exam ASCUS of cervix with negative high risk HPV Subclinical hypothyroidism Hypothyroidism Sinus pain Internal derangement of right knee Lumbar radicular pain Renal calculi History of kidney stones Encounter for IUD insertion IUD check up Pre-op examination Hypothyroidism (acquired) Anemia Vitamin D deficiency Pure hypercholesterolemia Obesity (BMI 30-39.9) Costochondritis Migraine Allergic rhinitis Diabetes mellitus Occipital neuralgia of left side Chronic pain syndrome Spondylosis of cervical spine without myelopathy Arthritis EKG abnormalities Anal fissure Renal stones Gastroparesis Hepatomegaly Leukocytosis MIO on CPAP Insomnia Anxiety Constipation GERD (gastroesophageal reflux disease) B12 deficiency Proteinuria Type 2 diabetes mellitus with other diabetic kidney complication Hypoglycemia after GI (gastrointestinal) surgery Surgical History H/O colonoscopy H/O gastric bypass History of tubal ligation Hx of lithotripsy History of umbilical hernia Hx of section History of esophagogastroduodenoscopy (EGD) Hx of bilateral breast reduction surgery Hx of cholecystectomy Family History Father Liver cancer Hypertension Diabetes mellitus CVD (cardiovascular disease) Liver failure Mother Hypercholesterolemia Breast cancer Asthma Depression Maternal Grandmother Diabetes mellitus Hypertension Paternal Grandmother Diabetes mellitus Hypertension Social History Household Members: Significant Other Housing: House Alcohol intake: never Patient Tobacco Use Status: Never used Tobacco e-Cigarette/Vaping Use: Never Used Second Hand Smoke Exposure: Yes service: No Current occupational status: disabled Cognitive needs: No Hearing needs: No Vision needs: Yes Female Reproductive History Menstrual Age of Menarche: 11 Review of Systems Const All systems reviewed & are unremarkable except as noted in HPI and below Reports no additional complaints Eyes Reports no additional complaints ENT Reports no additional complaints Card Reports no additional complaints Resp Reports no additional complaints GI Reports no additional complaints Reports as per HPI Musc Reports no additional complaints Skin/Breast Reports system reviewed and no additional complaints, except as documented Neuro Reports no additional complaints Psych Reports no additional complaints Endo Reports no additional complaints Huang/Lymph Reports no additional complaints Aller/Immun Reports no additional complaints Results AMB Urinalysis, Automated UA Leukoctes 0 Yossi/uL Last Edit by EVANGELINA Crook on 03/20/24 09:54 UA Nitrite Negative Last Edit by EVANGELINA Crook on 03/20/24 09:54 UA Urobilinogen 0.2 mg/dL Last Edit by EVANGELINA Crook on 03/20/24 09:54 UA Protein 0 mg/dL Last Edit by EVANGELINA Crook on 03/20/24 09:54 UA pH 6.5 Last Edit by EVANGELINA Crook on 03/20/24 09:54 UA Blood 0 Donnell/uL Last Edit by EVANGELINA Crook on 03/20/24 09:54 UA Specific [place] 1.020 Last Edit by EVANGELINA Crook on 03/20/24 09:54 UA Ketone Negative Last Edit by EVANGELINA Crook on 03/20/24 09:54 UA Bilirubin 0 mg/dL Last Edit by EVANGELINA Crook on 03/20/24 09:54 UA Glucose 0 mg/dL Last Edit by EVANGELINA Crook on 03/20/24 09:54 Results Reviewed Results Reviewed: Laboratory Last Values Urine pH (Auto) 6.5 03/20/24 09:54 Specific [place] (Auto) 1.020 03/20/24 09:54 Urine Protein (Auto) 0 mg/dL 03/20/24 09:54 Glucose (UA)(Auto) 0 mg/dL 03/20/24 09:54 Urine Ketones (Auto) Negative 03/20/24 09:54 Urine Blood (Auto) 0 Donnell/uL 03/20/24 09:54 Urine Nitrite (Auto) Negative 03/20/24 09:54 Urine Bilirubin (Auto) 0 mg/dL 03/20/24 09:54 Urine Urobilinogen (Auto) 0.2 mg/dL 03/20/24 09:54 Leukocyte Esterase (Auto) 0 Yossi/uL 03/20/24 09:54 Date of Service: 11/19/23 US RETROPERITONEAL COMPLETE (RENAL) dGE 1 CLINICAL INFORMATION: History of urinary calculi. COMPARISON: Renal ultrasound 12/20/2022 and 12/13/2021. CT abdomen and pelvis 08/26/2020. TECHNIQUE: Real-time imaging of the kidneys and bladder. Limited visualization due to bowel gas. FINDINGS: RIGHT KIDNEY: 11.6 x 5.6 x 5.3 cm (SAG x AP x TRV). No hydronephrosis. No renal calculi. Renal cortical thickness is normal. Limited visualization. LEFT KIDNEY: 11.1 x 5.3 x 4.6 cm (SAG x AP x TRV). A 0.6 cm left renal upper pole calcification may represent a nonobstructing calculus or a calcification associated with a 1.6 cm upper pole cyst. The cyst was not appreciated on prior exams. No hydronephrosis. Renal cortical thickness is normal. Limited visualization. IMPRESSION: A 0.6 cm left renal upper pole calcification may represent a nonobstructing calculus or a calcification associated with a 1.6 cm upper pole cyst. The cyst was not appreciated on prior exams. CT scan could be considered for further evaluation. Date of Service: 12/20/22 EXAMINATION: US RETROPERITONEAL LIMITED (RENAL ONLY) CLINICAL INFORMATION: Personal history of urinary calculi. COMPARISON: Ultrasound retroperitoneal limited (renal only) 12/13/2021. CT abdomen and pelvis without contrast 08/26/2020. Ultrasound retroperitoneal limited (renal only) 01/26/2019. X-ray abdomen 06/30/2018 and 01/09/2018. FINDINGS: RIGHT KIDNEY: 11.5 x 5.2 x 5.3 cm (SAG x AP x TRV). The kidney is normal in size, contour, and echogenicity. Renal cortical thickness is increased in the mid right kidney. This is similar to prior exams. It is uncertain whether this is related to a partially duplicated right renal collecting system. No calculi or focal parenchymal lesions. No hydronephrosis. LEFT KIDNEY: 11.8 x 5.2 x 5.6 cm (SAG x AP x TRV). The kidney is normal in size, contour, and echogenicity. Renal cortical thickness is normal. No calculi or focal parenchymal lesions. No hydronephrosis. The left upper pole renal stones seen by CT August 2020 are not appreciated by ultrasound. IMPRESSION: No stone appreciated by ultrasound Assessment & Plan Assessment & Plan (1) OAB (overactive bladder): Code(s): N32.81 - Overactive bladder Category: Medical (2) Nephrolithiasis: Code(s): N20.0 - Calculus of kidney Category: Medical (3) Complex renal cyst: Code(s): N28.1 - Cyst of kidney, acquired Category: Medical Plan Continue oxybutynin, vitamin B6 CT abdomen renal protocol Orders: Orders CT abdomen wo/w IV con 03/20/24 N28.1 - Cyst of kidney, acquired AMB Urinalysis Automated 03/20/24 Z13.9 - Encounter for screening, unspecified Patient Instructions: The patient had an opportunity to ask questions regarding treatment plan. The patient expressed understanding and agreement with the above treatment plan. The patient is aware they should contact our office by phone for worsening of their current condition or the appearance of new symptoms. Compliance is encouraged with any medications and followup testing that is ordered. It is a privilege to be allowed the opportunity to participate in the urologic care of your patient. If you have any questions or concerns regarding treatment for the above conditions please do not hesitate to contact me. The office telephone contact is [phone]. This note is constructed in part using voice recognition software. While every effort has been made to ensure accuracy ceramic plater errors may have been included. Yours sincerely, Michelle Schulte MD Coding Level of Care Code Est Pt Level 4 (62424) Diagnoses OAB (overactive bladder) N32.81 Nephrolithiasis N20.0 Complex renal cyst N28.1
== END 2024-03-20 10:56 | disposition home or self-care (01) ==
PROVIDERS: PCP Internal Medicine; Visit Provider Urology
DX: N32.81 Overactive bladder (principal); N20.0 Calculus of kidney; N28.1 Cyst of kidney, acquired
CPT/HCPCS: 99214

== ENCOUNTER → 2024-03-20 09:25 | Outpatient (BNVA) | payer MEDICARE, MEDICAID, SELFPAY | PROVIDERS: PCP Internal Medicine; Visit Provider Urology | DX: N32.81 Overactive bladder (principal); N28.1 Cyst of kidney, acquired; N20.0 Calculus of kidney | CPT/HCPCS: 81003; 99212 ==

== ENCOUNTER 2024-03-27 10:41 | Outpatient (AMB) | payer MEDICARE, MEDICAID, SELFPAY ==
--- NOTE | 2024-03-27 11:11 | A.OFFVIS_ITS ---
Intake Visit Reasons: ultrasound follow up/recheck vulva Central Station Operator Required: Yes Central Station Operator Language: Self Sealing Fuel Tank Repairer Services: Central Station Operator Present (in person) Central Station Operator Name: Sylvia BriscoeJACKY colon Information Interpreted: non-clinical & clinical Intern Architect: Intern Architect Present (JACKY Plata) Accompanied by: Self / Same As Patient Allergies lisinopril [LISINOPRIL] Allergy (Severe, Verified 03/27/24 11:12) ANAPYHLAXIS, swelling metformin [METFORMIN] Allergy (Severe, Verified 03/27/24 11:12) ANAPHYLAXIS, diarrhea sumatriptan [From IMITREX] Allergy (Severe, Verified 03/27/24 11:12) ANAPHYLAXIS, sedation HPI Comments Details: Presenting for ultrasound follow-up done on 01/22/2024, read on 03/14/2024, the report showed the following: UTERUS: The uterus is anteverted. Size: 8.3 x 4.4 x 5.4 cm. Uterine mass: There is no uterine mass. Cervix: Grossly unremarkable. Endometrium: No ultrasound evidence of endometrial lesion. IUD in place. ADNEXA: Normal Right ovary: Multiple cysts largest measure up to 4.9 cm, 4.4 cm with septations. Left ovary: Enlarged, multiple cysts largest measure up to 1.2 cm. Doppler exam: Normal Doppler flow identified in both ovaries. FREE FLUID: Trace amount of free fluid. OTHER FINDINGS: None In addition, the patient is he had to follow-up on the mons pubis abscess, culture grew staph aureus coagulase negative, her abscess resolved completely [facility] Medical History Vulvovaginitis Vulvar abscess Encounter for removal of sutures Abdominal bloating Abdominal cramping Abdominal bloating Dyslipidemia Type 2 diabetes mellitus in remission Lumbar degenerative disc disease Recurrent chest pain Foreign body in throat Fatigue Myalgia Lumbar back pain with radiculopathy affecting right lower extremity Rhinitis Cough Well woman exam ASCUS of cervix with negative high risk HPV Subclinical hypothyroidism Hypothyroidism Sinus pain Internal derangement of right knee Lumbar radicular pain Renal calculi History of kidney stones Encounter for IUD insertion IUD check up Pre-op examination Hypothyroidism (acquired) Anemia Vitamin D deficiency Pure hypercholesterolemia Obesity (BMI 30-39.9) Costochondritis Migraine Allergic rhinitis Diabetes mellitus Occipital neuralgia of left side Chronic pain syndrome Spondylosis of cervical spine without myelopathy Arthritis EKG abnormalities Anal fissure Renal stones Gastroparesis Hepatomegaly Leukocytosis MIO on CPAP Insomnia Anxiety Constipation GERD (gastroesophageal reflux disease) B12 deficiency Proteinuria Type 2 diabetes mellitus with other diabetic kidney complication Hypoglycemia after GI (gastrointestinal) surgery Surgical History H/O colonoscopy H/O gastric bypass History of tubal ligation Hx of lithotripsy History of umbilical hernia Hx of section History of esophagogastroduodenoscopy (EGD) Hx of bilateral breast reduction surgery Hx of cholecystectomy Family History Father Liver cancer Hypertension Diabetes mellitus CVD (cardiovascular disease) Liver failure Mother Hypercholesterolemia Breast cancer Asthma Depression Maternal Grandmother Diabetes mellitus Hypertension Paternal Grandmother Diabetes mellitus Hypertension Social History Household Members: Significant Other Housing: House Alcohol intake: never Patient Tobacco Use Status: Never used Tobacco e-Cigarette/Vaping Use: Never Used Second Hand Smoke Exposure: Yes service: No Current occupational status: disabled Cognitive needs: No Hearing needs: No Vision needs: Yes Female Reproductive History Menstrual Age of Menarche: 11 Review of Systems Const All systems reviewed & are unremarkable except as noted in HPI and below Reports as per HPI and Reports no additional complaints GI Reports no additional complaints Reports no additional complaints Physical Exam Skin Other: Mons pubis skin within normal with no evidence of abscess Assessment & Plan Assessment & Plan (1) Complex ovarian cyst: Code(s): N83.299 - Other ovarian cyst, unspecified side Category: Medical Plan: Discussed with the patient the finding on ultrasound, recommended MRI of the pelvis as the next step in the management. Instructions given the patient is schedule MRI and a follow-up appointment within 2 weeks. All questions answered, the patient verbalized understanding and agreed with the plan (2) Vulvar abscess: Comment: Right mons pubis with no evidence of cellulitis-resolved Code(s): N76.4 - Abscess of vulva Category: Medical Plan: Discussed with the patient the finding on exam, mons pubis within normal with no evidence of abscess, Orders: Orders MR pelvis wo/w con Today N83.299 - Other ovarian cyst, unspecified side Coding Level of Care Code Est Pt Level 3 (17470) Diagnoses Complex ovarian cyst N83.299 Vulvar abscess N76.4
== END 2024-03-27 11:33 | disposition home or self-care (01) ==
LOC: HO.HWS 10:41
PROVIDERS: PCP Internal Medicine; Visit Provider Obstetrics & Gynecology
DX: N83.299 Other ovarian cyst, unspecified side (principal); N76.4 Abscess of vulva
CPT/HCPCS: 99213

== ENCOUNTER → 2024-03-27 10:41 | Outpatient (BNVA) | payer MEDICARE, MEDICAID, SELFPAY | PROVIDERS: PCP Internal Medicine; Visit Provider Obstetrics & Gynecology | DX: N83.299 Other ovarian cyst, unspecified side (principal); N76.4 Abscess of vulva | CPT/HCPCS: 99212 ==

== ENCOUNTER → 2024-04-08 12:30 | Outpatient (BNV) | payer MEDICARE, MEDICAID, SELFPAY | PROVIDERS: PCP Internal Medicine; Visit Provider Radiology Diagnostic Radiology | DX: N83.201 Unspecified ovarian cyst, right side (principal); N83.202 Unspecified ovarian cyst, left side | CPT/HCPCS: 72197 ==

== ENCOUNTER 2024-04-08 12:56 | Outpatient (REF) | payer MEDICARE, MEDICAID, SELFPAY ==
--- NOTE | ~2024-04-08 | MR_ITS ---
CLINICAL HISTORY: N83.299 - Other ovarian cyst, unspecified side MRI of the pelvis with and without intravenous contrast. Comparison: CT/REG - CT ABDOMEN PELVIS WO CON - 08/26/20 15:50 EDT Findings: Simple appearing bilateral ovarian cysts. There is a 4.3 cm cyst within the right ovary 4.2 cm cyst within the left ovary. No suspicious features such as mural thickening or internal solid components are identified. There are small adjacent daughter cysts. These measure less than 15 mm in size. IUD is seen within the endometrial canal. Small nabothian cysts. Heterogeneity of the myometrium without discrete fibroid. Myometrial defects along the anterior aspect of the lower uterine segment is likely related to section site. Small volume free pelvic fluid. No enlarged lymph nodes. Impression: Simple bilateral ovarian cysts. No suspicious features. This document has been electronically signed by: Braeden Love MD on 04/09/2024 10:10:16
[2024-04-08] MEDS: gadobutroL 7.5 ML VIAL IVPUSH (13:50)
--- OUTSIDE RECORDS SUMMARY | 2024-04-08 14:49 | XMS_ITS | Clinical Summary ---
Author Organization [employer] Address [address] [facility] [address] [place] [address] Care Team Providers Care Physician Practice Market Manager Name Role Phone Unavailable Primary Care Provider Unavailabl e Immunizations Name Administration Dates Next Due Pfizer Covid-19 Vaccine 12+ Bivalent 05/16/2022 Social History Tobacco Use Types Packs/Day Years Used Date Smoking Tobacco: Never Assessed Comments Unknown Sex and Gender Information Value Date Recorded Sex Assigned at Female 01/15/2022 10:14 AM EDT Legal Sex Female 10:14 AM EDT Gender Identity Female 05/16/2022 11:28 AM EST Sexual Orientation Straight 05/16/2022 11 :28 AM EST Plan of Treatment Health Maintenance Due Date Last Done Comments CT Colonography 1976 Colonoscopy 1976 Colorectal Cancer Screening 1976 Depression Screening 1976 FIT DNA/Cologuard 1976 FIT 1976 FOBT 1976 HIV Screening 1976 Lipid Panel 1976 SDOH Screening 1976 Sigmoidoscopy 1976 Alcohol/Substance Use Screening 1988 Tobacco Screening 1988 Hepatitis C Screening 1994 Hepatitis B Vaccines (1 of 3 - 19+ 3-dose series) 12/27/1995 Pap Smear 1997 Cervical Cancer Screening 2006 HPV/Cotest 2006 Mammogram 2016 COVID-19 Vaccine ( season) 2023 05/16/2022, 08/16/2020, 07/26/2020 Influenza Vaccine (#1) 2023 2, 12/06/2020, 02/28/2020, Additional history exists DTaP/Tdap/Td Vaccines (8 - Td or Tdap) 01/10/2026 01/11/2016, 06/27/2010, 09/03/2001, Additional history exists Zoster Vaccines (1 of 2) 2026 RSV Patients and Patients Aged 60 years or older (1 - 1-dose 75+ series) 12/27/2051 IPV Vaccines Completed 07/14/1981, 10/17, 09/19/1977, Additional history exists Pneumococcal Vaccine: Pediatrics (0 to 5 Years) and At-Risk Patients (6 to 64 Years) Aged Out 06/27/2010 No longer eligible based on patient's age to complete this topic Hepatitis A Vaccines Aged Out 02/09/2013 No long er eligible based on patient's age to complete this topic HIB Vaccines Aged Out No longer eligi ble based on patient's age to complete this topic HPV Vaccines Aged Out No longer eligi ble based on patient's age to complete this topic Meningococcal Vaccine Aged Out No trey marlon eligible based on patient's age to complete this topic RSV under 20 months Aged Out No longe r eligible based on patient's age to complete this topic Rotavirus Vaccines Aged Out No longer eligible based on patient's age to complete this topic [place] [address] [place] [address] LIMITED HS FULL [place] [address] [place] [address]
--- OUTSIDE RECORDS SUMMARY | 2024-04-08 14:49 | XMS_ITS | Clinical Summary ---
Author Organization [address] [facility] Address [address] [place] [address] Phone Care Team Providers Care Music Grapher Name Role Phone Juve Crawford MD Primary Care Provider [phone] Allergies Active Allergy Reactions Criticality Noted Date Comments Lisinopril 07/23/2017 swelling in lips Metformin 07/23/2017 pain Sumatriptan 07/11/2020 Medications Medication Sig Dispensed Refills Start Date End Date Status linaCLOtide (LINZESS) 290 mcg capsule Take by mouth. Active rosuvastatin (CRESTOR) 5 mg tablet Take 1 tablet (5 mg total) by mouth. Active topiramate (TOPAMAX) 100 mg tablet Take 1 tablet (100 mg total) by mouth. Active acarbose (PRECOSE) 100 mg tablet Take 1 tablet (100 mg total) by mouth 3 (three) times a day with meals. 03/23/2024 Active ALPRAZolam (XANAX) 1 mg tablet Take 1 tablet (1 mg total) by mouth if needed. 03/09/2024 Active Laxative, bisacodyl, 5 mg EC tablet Take 1 tablet (5 mg total) by mouth if needed. 01/14/2024 Active cetirizine (ZyrTEC) 10 mg tablet Take 1 tablet (10 mg total) by mouth 1 (one) time each day. 12/25/2023 Active cloNIDine (CATAPRES) 0.1 mg tablet Take 1 tablet (0.1 mg total) by mouth 2 (two) times a day. 03/09/2024 Active dicyclomine (BENTYL) 20 mg tablet Take 0.5 tablets (10 mg total) by mouth if needed. 01/14/2024 Active fluticasone propionate (FLONASE) 50 mcg/actuation nasal spray Administer 1 spray into each nostril 1 (one) time each day. 02/27/2024 Active ibuprofen (ADVIL,MOTRIN) 800 mg tablet Take 1 tablet (800 mg total) by mouth if needed. 02/25/2024 Active levothyroxine (SYNTHROID, LEVOTHROID) 50 mcg tablet Take 1 tablet (50 mcg total) by mouth 1 (one) time each day. 01/04/2024 Active melatonin 5 mg tablet Take 1 tablet (5 mg total) by mouth at bedtime. 03/23/2024 Active metoclopramide (REGLAN) 10 mg tablet Take 1 tablet (10 mg total) by mouth if needed. 03/16/2024 Active simethicone (MYLICON,GAS-X) 180 mg capsule Take 1 capsule (180 mg total) by mouth 1 (one) time. 01/14/2024 Active traMADoL (ULTRAM) 50 mg tablet Take 1 tablet (50 mg total) by mouth if needed. 03/02/2024 Active cyanocobalamin, vitamin B-12, 1,000 mcg tablet, sublingualIndication s:Postgastrectomy malabsorption Place 1 tablet under the tongue 1 (one) time each day. 90 tablet 03/27/2024 06/25/2024 Active Active Problems Problem Noted Date Diagnosed Date Diabetes mellitus 01/16/2024 Pharyngoesophageal dysphagia 07/11/2020 Constipation 03/17/2019 Intestinal malabsorption following gastrectomy 1 05/05/2017 Encounters Date Type Department Care Team Description 03/26/2024 10:00 AM EST Office Visit Bariatric Surgery - [address] [id number] Lluvia Rosales MD Class 1 obesity due to excess calories with body mass index (BMI) of 34.0 to 34.9 in adult, unspecified whether serious comorbidity present (Primary Dx); Postgastrectomy malabsorption from Last 3 Months Surgical History Surgery Date Site/Laterality Comments OTHER SURGICAL HISTORY PROCEDURE: CO LAPS GSTR RSTCV PX W/BYP KAYLAH-EN-Y LIMB <150 CM Medical History Medical History Date Comments Diabetes mellitus (CMS/HCC) DX:D iabetes mellitus (HCC) Hyperchloremia DX:Hyperchloremi a Migraine DX:Migraine Constipation DX:Constipation Family History Medical History Relation Name Comments Diabetes Father Hypertension Father Other: kidney failure Father Asthma Mother Breast cancer Mother Hypertension Mother Relation Name Status Comments Father Mother Alive Social History Tobacco Use Types Packs/Day Years Used Date Smoking Tobacco: Never Smokeless Tobacco: Never Alcohol Use Standard Drinks/Week Comments No 0 (1 standard drink = 0.6 oz pur e alcohol) Sex and Gender Information Value Date Recorded Sex Assigned at Not on file Gender Identity Not on file Sexual Orientation Not on file Job Start Date Occupation Industry Not on file Not on file Not on file Obstetrics History Last Filed Vital Signs Vital Sign Reading Time Taken Comments Blood Pressure 108/69 03/26/2024 10:05 AM EST Pulse 61 03/26/2024 10:05 AM EST Temperature 36.2 ??C (97.2 ??F) 03/26/2024 10:[address] Respiratory Rate - - Oxygen Saturation - - Inhaled Oxygen Concentration - - Weight 79.4 kg (175 lb) 03/26/2024 10:05 AM EST Height 152.4 cm (5') 03/26/2024 10:05 AM EST Body Mass Index 34.18 03/26/2024 10:05 AM EST Plan of Treatment Upcoming Encounters Date Type Department Care Team (Late st Contact Info) Description 09/24/2024 10:00 AM EDT Office Visit Bariatric Surgery - [place] [address] [facility] [address] [place] [phone] Lluvia Rosales MD [address] [facility] [address] [place] [address] Health Maintenance Due Date Last Done Comments Breast Cancer Screening 1976 Diabetes: Annual GFR (Glomerular Filtration Rate) 1976 Diabetes: Annual Foot Exam 1986 Diabetes: Annual Retina Eye Exam 1986 Hepatitis B Vaccines (1 of 3 - 19+ 3-dose series) 12/27/1995 Cervical Cancer Screening: Pap Smear 1997 Pneumococcal Vaccine: Pediatrics (0 to 5 Years) and At-Risk Patients (6 to 64 Years) (2 of 2 - PCV) 06/28/2011 06/27/2010 Cholesterol Screening (Lipid Panel) 02/24/2022 Colorectal Cancer Screening: Colonoscopy 02/24/2022 Depression Screening 02/24/2022 HIV Screening 02/24/2022 Hepatitis C Screening 02/24/2022 Medicare Annual Wellness Visit 02/24/2022 Social Influencers of Health Screening 02/24/2022 Diabetes: Annual Urine Albumin-Creatinine Ratio (uACR) 02/28/2022 Diabetes: Blood Sugar Control Test (HGBA1C) 02/28/2022 COVID-19 Vaccine ( season) 2023 05/16/2022, 08/16/2020, 07/26/2020 DTaP,Tdap,and Td Vaccines (11 - Td or Tdap) 12/31/2032 12/31/2022, 01/11/2016, 06/27/2010, Additional history exists IPV Vaccines Completed 07/14/1981, 10/17, 09/19/1977, Additional history exists MMR Vaccines Completed 04/05/1987 Hepatitis A Vaccines Aged Out 02/09/2013 No long er eligible based on patient's age to complete this topic Influenza Vaccine Completed 12/25/2023, , 12/09/2021, Additional history exists HIB Vaccines Aged Out No longer eligi ble based on patient's age to complete this topic HPV Vaccines Aged Out No longer eligi ble based on patient's age to complete this topic Meningococcal ACWY Vaccine Aged Out N o longer eligible based on patient's age to complete this topic RSV Immunization Patients Under 20 months Aged Out No longer eligible based on patient's age to complete this topic Varicella Vaccines Aged Out No longer eligible based on patient's age to complete this topic Procedures Procedure Name Priority Date/Time Associated Diagnosis Comments ZINC Routine 03/26/2024 10:23 AM EST Postgastrectomy malabsorption VITAMIN D 25 HYDROXY Routine 03/26/2024 10:23 AM EST Postgastrectomy malabsorption VITAMIN B12 Routine 03/26/2024 10:23 AM EST Postgastrectomy malabsorption VITAMIN B1 Routine 03/26/2024 10:23 AM EST Postgastrectomy malabsorption VITAMIN A Routine 03/26/2024 10:23 AM EST Postgastrectomy malabsorption SELENIUM SERUM Routine 03/26/2024 10:23 AM EST Postgastrectomy malabsorption IRON AND TIBC Routine 03/26/2024 10:23 AM EST Postgastrectomy malabsorption FOLATE Routine 03/26/2024 10:23 AM EST Postgastrectomy malabsorption COPPER, SERUM Routine 03/26/2024 10:23 AM EST Postgastrectomy malabsorption CALCIUM Routine 03/26/2024 10:23 AM EST Postgastrectomy malabsorption ALBUMIN Routine 03/26/2024 10:23 AM EST Postgastrectomy malabsorption from Last 3 Months Results * Iron and TIBC (03/26/2024 10:23 AM EST) Iron 106 40 - 150 mcg/dL LAB CHEMISTRY METHOD 03/26/2024 3:36 PM EST [facility] TIBC 396 250 - 450 mcg/dL LAB CHEMISTRY METHOD 03/26/2024 3:36 PM EST [facility] Iron Saturation 27 15 - 50 % LAB CHEMISTRY METHOD 03/26/2024 3:36 PM EST [facility] Blood Venous blood specimen / Unknown Venipuncture / Unknown 03/26/2024 10:23 AM EST 03/26/2024 10:23 AM EST Lluvia Rosales MD LAB BLOOD ORDERABLES [facility]) [facility] [address] [place] [address], * Copper, serum (03/26/2024 10:23 AM EST) Copper 1229 810 - 1990 ug/L 03/31/2024 6:32 AM EST [facility] Comment: Copper values may be elevated to twice the normal levels in . Elevated results may be due to sample collected in a non-certified trace element-free tube. This test was developed and the performance characteristics determined by [facility]. It has not been cleared or approved by the FDA. The laboratory is regulated under CLIA as qualified to perform high-complexity testing. This test is used for patient testing purposes. It should not be regarded as investigational or for research. Test performed at [facility], [address] [place], [place] ??[address] ? [phone] Supriya Rouse MD, PhD - Systems Project Manager Blood Venous blood specimen / Unknown Venipuncture / Unknown 03/26/2024 10:23 AM EST 03/26/2024 10:23 AM EST Lluvia Rosales MD LAB BLOOD ORDERABLES Performing Organization Address [facility]/ZIP Co de Phone Number [facility] [address] [place] [address] * (ABNORMAL) Zinc (03/26/2024 10:23 AM EST) Zinc 57(L) 60 - 130 ug/dL 03/30/2024 9:43 AM EST [facility] Comment: Elevated results may be due to sample collected in a non-certified trace element-free tube. This test was developed and the performance characteristics determined by [facility]. It has not been cleared or approved by the FDA. The laboratory is regulated under CLIA as qualified to perform high-complexity testing. This test is used for patient testing purposes. It should not be regarded as investigational or for research. Test performed at [facility], [address] [place], [place] ??[address] ? [phone] Supriya Rouse MD, PhD - Systems Project Manager Blood Venous blood specimen / Unknown Venipuncture / Unknown 03/26/2024 10:23 AM EST 03/26/2024 10:23 AM EST Lluvia Rosales MD LAB BLOOD ORDERABLES [facility] [address] [place] [address] * Vitamin A (03/26/2024 10:23 AM EST) Vitamin A 41 38 - 106 ug/dL 03/31/2024 6:40 AM EST [facility] Comment: This test was developed and the performance characteristics determined by [facility]. It has not been cleared or approved by the FDA. The laboratory is regulated under CLIA as qualified to perform high-complexity testing. This test is used for patient testing purposes. It should not be regarded as investigational or for research. Test performed at [facility], [address] [place], [place] [address] ? [phone] Supriya Rouse MD, PhD - Systems Project Manager Blood Venous blood specimen / Unknown Venipuncture / Unknown 03/26/2024 10:23 AM EST 03/26/2024 10:23 AM EST Lluvia Rosales MD LAB BLOOD ORDERABLES [facility] [address] [place] [address] * Selenium serum (03/26/2024 10:23 AM EST) Selenium 149 63 - 160 mcg/L 04/05/2024 11:38 PM EST [facility] Comment: (Note) This test was developed and its analytical performance characteristics have been determined by [employer]. It has not been cleared or approved by the FDA. This assay has been validated pursuant to the CLIA regulations and is used for clinical purposes. [facility] [address] [address],[address] [facility] [address] Chan Francois MD, PhD Test Performed at: [facility] [address] [facility] [address], [address] [place], [place] ??[phone] ? Alec Francois MD, PhD Blood Venous blood specimen / Unknown Venipuncture / Unknown 03/26/2024 10:23 AM EST 03/26/2024 10:23 AM EST Lluvia Rosales MD LAB BLOOD ORDERABLES [facility] [address] [place] [address] * Vitamin D 25 hydroxy (03/26/2024 10:23 AM EST) Pathologist [facility] Vit D, 25-Hydroxy 31.6 30.0 - 80.0 ng/mL LAB CHEMISTRY METHOD 03/26/2024 3:04 PM EST [facility] Blood Venous blood specimen / Unknown Venipuncture / Unknown 03/26/2024 10:23 AM EST 03/26/2024 10:23 AM EST Lluvia Rosales MD LAB BLOOD ORDERABLES Performing Organization Address [facility] Co de Phone Number [facility] [address] [place] [address], * Vitamin B1 (03/26/2024 10:23 AM EST) [facility] Vitamin B1 Whole Blood 75 38 - 122 ug/L 03/31/2024 9:38 AM EST [facility] Comment: This test was developed and the performance characteristics determined by [facility]. It has not been cleared or approved by the FDA. The laboratory is regulated under CLIA as qualified to perform high-complexity testing. This test is used for patient testing purposes. It should not be regarded as investigational or for research. Test performed at [facility], [address] , [place], [place] ??[address] ? [phone] Supriya Rouse MD, PhD - Systems Project Manager Blood Venous blood specimen / Unknown Venipuncture / Unknown 03/26/2024 10:23 AM EST 03/26/2024 10:23 AM EST Lluvia Rosales MD LAB BLOOD ORDERABLES Performing Organization Address City/[facility]/ZIP Co de Phone Number [facility] [address] [place] [address] * Folate (03/26/2024 10:23 AM EST) Folate 15.5 2.8 - 17.0 ng/ml LAB CHEMISTRY METHOD 03/26/2024 3:36 PM EST [facility] Blood Venous blood specimen / Unknown Venipuncture / Unknown 03/26/2024 10:23 AM EST 03/26/2024 10:23 AM EST Lluvia Rosales MD LAB BLOOD ORDERABLES [facility] [address] [place] [address], * (ABNORMAL) Vitamin B12 (03/26/2024 10:23 AM EST) Pathologist [facility] Vitamin B-12 232(L) 250 - 900 pcg/mL LAB CHEMISTRY METHOD 03/26/2024 3:36 PM EST [facility] Blood Venous blood specimen / Unknown Venipuncture / Unknown 03/26/2024 10:23 AM EST 03/26/2024 10:23 AM EST Lluvia Rosales MD LAB BLOOD ORDERABLES [facility] [address] [place] [address], [place] [phone] * Calcium (03/26/2024 10:23 AM EST) Calcium 9.1 8.5 - 10.5 mg/dL LAB CHEMISTRY METHOD 03/26/2024 3:36 PM EST [facility] Blood Venous blood specimen / Unknown Venipuncture / Unknown 03/26/2024 10:23 AM EST 03/26/2024 10:23 AM EST Lluvia Rosales MD LAB BLOOD ORDERABLES Performing Organization Address City/[facility]/ZIP Co de Phone Number [facility] [address] [place] [address], [place] [phone] * Albumin (03/26/2024 10:23 AM EST) Albumin 3.7 3.2 - 5.0 g/dL LAB CHEMISTRY METHOD 03/26/2024 2:57 PM EST [facility] Blood Venous blood specimen / Unknown Venipuncture / Unknown 03/26/2024 10:23 AM EST 03/26/2024 10:23 AM EST Lluvia Rosales MD LAB BLOOD ORDERABLES Performing Organization Address [facility] Co de Phone Number [facility] [address] [place] [address], [place] [phone] from Last 3 Months Care Teams Music Grapher Relationship Specialty Start Date End Date Juve Crawford MD [address] [place] [address] Dr [address] [place] PCP - General Internal Medicine 10/13/20
--- OUTSIDE RECORDS SUMMARY | 2024-04-08 14:49 | XMS_ITS | Encounter Summary ---
Author Organization [employer] Address [address] [place] [address] Care Team Providers Care Subassembler Name Role Phone Juve Crawford MD Primary Care Provider [phone] Reason for Visit * Reason Comments Follow-up 1 year follow up Encounter Details Date Type Department Care Team (Latest Contact Info) Description 03/26/2024 10:00 AM EST Office Visit Bariatric Surgery - [place] [address] [place] [id number] Lluvia Rosales MD 175 [facility] [address] [place] [address] Class 1 obesity due to excess calories with body mass index (BMI) of 34.0 to 34.9 in adult, unspecified whether serious comorbidity present (Primary Dx); Postgastrectomy malabsorption Social History Tobacco Use Types Packs/Day Years [...] file Not on file Not on file documented as of this encounter Last Filed Vital Signs Vital Sign Reading [...] Mass Index 34.18 03/26/2024 10:05 AM EST documented in this encounter Progress Notes * Lluvia Rosales MD - 03/26/2024 10:00 AM EST 03/26/23; Ms. Godoy is s/p gastric bypass. 2016. DM controlled. No medications. She has been diagnosed with hypothyroidism. She is upset about the need to take medication for thiscondition. BMI is 32. Stable. HLP and HTN resolved. MIO resolved. 1. The patient has done very well after bariatric surgery. I will check labs to rule out any deficiencies that may have caused by the operation. The patient will continue taking vitamin supplements and protein supplements. The patient will continue exercising and following a healthy lifestyle. 2. F/U in a year. Ms. Godoy is a 48 y.o. year old female who presents for surgical follow up regarding obesity. HPI: Ms. Godoy is using med for HLD, Crestor, and hypothyroid. Gained 9 lbs in a yr. Restricted, small portions. Low appetite. Early satiety. BMI is 34.18. ROS: GENERAL: No malaise, significant unintentional weight loss, fever, chills or night sweats. HEENT: No changes in hearing or vision, no nose bleeds or other nasal problems. NECK: No lumps, goiter, pain or significant neck swelling RESPIRATORY: No cough, wheezing or shortness of breath CARDIOVASCULAR: No chest pain, leg swelling or palpitations. GI: No abdominal discomfort, nausea, vomiting, or change in bowel habits. : No dysuria, frequency or incontinence. SKIN: No lesions, rash or itching. HEMATOLOGY: No prolonged bleeding, easy bruisability. LYMPHOLOGY No swollen nodes. MUSCULOSKELETAL: No abnormalities. NEURO: No abnormalities. All other systems reviewed which are negative. 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 PAST SURGICAL HISTORY: Past Surgical History: Procedure Laterality Date OTHER SURGICAL HISTORY PROCEDURE: MO LAPS GSTR RSTCV PX W/BYP KAYLAH-EN-Y LIMB <150 CM SOCIAL HISTORY: Social History Tobacco Use Smoking status: Never Smokeless tobacco: Never Substance Use Topics Alcohol use: No FAMILY HISTORY: Family History Problem Relation Name Age of Onset Diabetes Father Hypertension Father Other (Other: kidney failure) Father Asthma Mother Hypertension Mother Breast cancer Mother Family Status Relation Name Status Father Mother Alive No partnership data on file MEDICATIONS: There are no discontinued medications. ACTIVE MEDICATIONS: Outpatient Medications Marked as Taking for the 03/26/24 encounter (Office Visit) with Lluvia Rosales MD Medication Sig Dispense Refill acarbose (PRECOSE) 100 mg tablet Take 1 tablet (100 mg total) by mouth 3 (three) times a day with meals. ALPRAZolam (XANAX) 1 mg tablet Take 1 tablet (1 mg total) by mouth if needed. cetirizine (ZyrTEC) 10 mg tablet Take 1 tablet (10 mg total) by mouth 1 (one) time each day. cloNIDine (CATAPRES) 0.1 mg tablet Take 1 tablet (0.1 mg total) by mouth 2 (two) times a day. dicyclomine (BENTYL) 20 mg tablet Take 0.5 tablets (10 mg total) by mouth if needed. fluticasone propionate (FLONASE) 50 mcg/actuation nasal spray Administer 1 spray into each nostril 1 (one) time each day. ibuprofen (ADVIL,MOTRIN) 800 mg tablet Take 1 tablet (800 mg total) by mouth if needed. Laxative, bisacodyl, 5 mg EC tablet Take 1 tablet (5 mg total) by mouth if needed. levothyroxine (SYNTHROID, LEVOTHROID) 50 mcg tablet Take 1 tablet (50 mcg total) by mouth 1 (one) time each day. melatonin 5 mg tablet Take 1 tablet (5 mg total) by mouth at bedtime. metoclopramide (REGLAN) 10 mg tablet Take 1 tablet (10 mg total) by mouth if needed. simethicone (MYLICON,GAS-X) 180 mg capsule Take 1 capsule (180 mg total) by mouth 1 (one) time. traMADoL (ULTRAM) 50 mg tablet Take 1 tablet (50 mg total) by mouth if needed. ALLERGIES: Allergies Allergen Reactions Lisinopril swelling in lips Metformin pain Sumatriptan PHYSICAL EXAM: Visit Vitals BP 108/69 Pulse 61 Temp 36.2 ??C (97.2 ??F) (Oral) Ht 1.524 m (60 ) Wt 79.4 kg (175 lb) BMI 34.18 kg/m?? Smoking Status Never BSA 1.76 m?? APPEARANCE: Alert and oriented and in no acute distress EYES: Conjunctiva normal and sclera normal and anicteric. NECK: Neck supple with no adenopathy. HEART: RRR with normal S 1 and S 2, no murmurs, no gallops. LUNG: Clear to auscultation LYMPH NODES: No gross cervical or clavicular lymphadenopathy. ABDOMEN: Bowel sounds normoactive, soft, non-tender, non-distended, EXTREMITIES: Extremities warm and well perfused without clubbing, cyanosis, or edema. SKIN: Skin color and texture normal. No rashes or lesions. NEUROLOGIC: Alert and oriented ??3. No motor or sensory deficits in the extremities. LABS/IMAGING: ASSESSMENT: 1. Class 1 obesity due to excess calories with body mass index (BMI) of 34.0 to 34.9 in adult, unspecified whether serious comorbidity present 2. Postgastrectomy malabsorption PLAN: 1. The patient has done very well after bariatric surgery. I will check labs to rule out any deficiencies that may have caused by the operation. The patient will continue taking vitamin supplements and protein supplements. The patient will continue exercising and following a healthy lifestyle. 2. Will see in 6 months to check her weight. I think that she has gained due to thyroid. documented in this encounter Plan of Treatment Upcoming Encounters Date Type Department Care Team (Late st Contact Info) Description 09/24/2024 10:00 AM EDT Office Visit Bariatric Surgery - [place] [address] [phone] Lluvia Rosales MD [address] [address] documented as of this encounter Results * (ABNORMAL) Zinc (03/26/2024 10:23 AM EST) Zinc 57(L) 60 - 130 ug/dL 03/30/2024 9:43 AM EST [facility] Comment: Elevated results may be due to [...] performed at [facility], [address] , [place], [place] ??[address] ? [phone] Supriya Rouse MD, PhD - Pricing Consultant Blood Venous blood specimen / Unknown Venipuncture / Unknown 03/26/2024 10:23 AM EST 03/26/2024 10:23 AM EST Lluvia Rosales MD LAB BLOOD ORDERABLES Performing Organization Address City/[facility]/ZIP Co de Phone Number [facility] [address] [place] [address] * Vitamin D 25 hydroxy (03/26/2024 10:23 AM EST) Vit D, 25-Hydroxy 31.6 30.0 - 80.0 ng/mL LAB CHEMISTRY METHOD 03/26/2024 3:04 PM EST [facility] Blood Venous blood specimen / Unknown Venipuncture / Unknown 03/26/2024 10:23 AM EST 03/26/2024 10:23 AM EST Lluvia Rosales MD LAB BLOOD ORDERABLES [facility] [address] [place] [address], * (ABNORMAL) Vitamin B12 (03/26/2024 10:23 AM EST) Vitamin B-12 232(L) 250 - 900 pcg/mL LAB CHEMISTRY METHOD 03/26/2024 3:36 PM EST [facility] Blood Venous blood specimen / Unknown Venipuncture / Unknown 03/26/2024 10:23 AM EST 03/26/2024 10:23 AM EST Lluvia Rosales MD LAB BLOOD ORDERABLES [facility] [address] [place] [address], * Vitamin B1 (03/26/2024 10:23 AM EST) Vitamin B1 Whole Blood 75 38 - 122 ug/L 03/31/2024 9:38 AM EST [facility] Comment: This test was developed and the performance characteristics determined by [facility]. It has not been cleared or approved by the FDA. The laboratory is regulated under CLIA as qualified to perform high-complexity testing. This test is used for patient testing purposes. It should not be regarded as investigational or for research. Test performed at [facility], [address] [place], [place] ??[address] ? [phone] Supriya Rouse MD, PhD - Pricing Consultant Blood Venous blood specimen / Unknown Venipuncture / Unknown 03/26/2024 10:23 AM EST 03/26/2024 10:23 AM EST Lluvia Rosales MD LAB BLOOD ORDERABLES [facility] [address] [place] [address] * Vitamin A (03/26/2024 10:23 AM EST) Vitamin A 41 38 - 106 ug/dL 03/31/2024 6:40 AM EST [facility] Comment: This test was developed and the performance characteristics determined by [facility]. It has not been cleared or approved by the FDA. The laboratory is regulated under CLIA as qualified to perform high-complexity testing. This test is used for patient testing purposes. It should not be regarded as investigational or for research. Test performed at [facility], [address] , [place], [place] ??[address] ? [phone] Supriya Rouse MD, PhD - Pricing Consultant Blood Venous blood specimen / Unknown Venipuncture / Unknown 03/26/2024 10:23 AM EST 03/26/2024 10:23 AM EST Lluvia Rosales MD LAB BLOOD ORDERABLES Performing Organization Address City/[facility]/ZIP Co de Phone Number [facility] [address] [place] [address] * Selenium serum (03/26/2024 10:23 AM EST) Selenium 149 63 - 160 mcg/L 04/05/2024 11:38 PM EST [facility] Comment: (Note) This test was developed and its analytical performance characteristics have been determined by [employer]. It has not been cleared or approved by the FDA. This assay has been validated pursuant to the CLIA regulations and is used for clinical purposes. [facility] [address] [address],[address] [facility] [address] Chan Francois MD, PhD Test Performed at: [facility] [address] [place] [address], [address] [place] [address] ??[phone] ? Alec Francois MD, PhD Blood Venous blood specimen / Unknown Venipuncture / Unknown 03/26/2024 10:23 AM EST 03/26/2024 10:23 AM EST Lluvia Rosales MD LAB BLOOD ORDERABLES [facility] [address] [place] [address] * Iron and TIBC (03/26/2024 10:23 AM EST) Iron 106 40 - 150 mcg/dL LAB CHEMISTRY METHOD 03/26/2024 3:36 PM EST [facility] TIBC 396 250 - 450 mcg/dL LAB CHEMISTRY METHOD 03/26/2024 3:36 PM EST [facility] Iron Saturation 27 15 - 50 % LAB CHEMISTRY METHOD 03/26/2024 3:36 PM EST [facility] Blood Venous blood specimen / Unknown Venipuncture / Unknown 03/26/2024 10:23 AM EST 03/26/2024 10:23 AM EST Lluvia Rosales MD LAB BLOOD ORDERABLES Performing Organization Address City/[facility]/ZIP Co de Phone Number [facility] [address] [place] [address], [place] [phone] * Folate (03/26/2024 10:23 AM EST) Folate 15.5 2.8 - 17.0 ng/ml LAB CHEMISTRY METHOD 03/26/2024 3:36 PM EST [facility] Blood Venous blood specimen / Unknown Venipuncture / Unknown 03/26/2024 10:23 AM EST 03/26/2024 10:23 AM EST Lluvia Rosales MD LAB BLOOD ORDERABLES Performing Organization Address City/[facility]/ZIP Co de Phone Number [facility] [address] [place] [address], [place] [phone] * Copper, serum (03/26/2024 10:23 AM EST) Copper 1229 810 - 1990 ug/L 03/31/2024 6:32 AM EST [facility] Comment: Copper values may be elevated [...] performed at [facility], [address] , [place], [place] ??[address] ? [phone] Supriya Rouse MD, PhD - Pricing Consultant Blood Venous blood specimen / Unknown Venipuncture / Unknown 03/26/2024 10:23 AM EST 03/26/2024 10:23 AM EST Lluvia Rosales MD LAB BLOOD ORDERABLES [facility] [address] [place] [address] * Calcium (03/26/2024 10:23 AM EST) Calcium 9.1 8.5 - 10.5 mg/dL LAB CHEMISTRY METHOD 03/26/2024 3:36 PM EST [facility] Blood Venous blood specimen / Unknown Venipuncture / Unknown 03/26/2024 10:23 AM EST 03/26/2024 10:23 AM EST Lluvia Rosales MD LAB BLOOD ORDERABLES [facility] [address] [place] [address], [place] [phone] * Albumin (03/26/2024 10:23 AM EST) Albumin 3.7 3.2 - 5.0 g/dL LAB CHEMISTRY METHOD 03/26/2024 2:57 PM EST [facility] Blood Venous blood specimen / Unknown Venipuncture / Unknown 03/26/2024 10:23 AM EST 03/26/2024 10:23 AM EST Lluvia Rosales MD LAB BLOOD ORDERABLES Performing Organization Address City/[facility]/ZIP Co de Phone Number [facility] [address] [place] [address], [place] [phone] documented in this encounter Visit Diagnoses Diagnosis Class 1 obesity due to excess calories with body mass index (BMI) of 34.0 to 34.9 in adult, unspecified whether serious comorbidity present- Primary Postgastrectomy malabsorption documented in this encounter Historical Medications * This list may reflect changes made after this encounter. Medication Sig Dispensed Refills Start Date End Date traMADoL (ULTRAM) 50 mg tablet Take 1 tablet (50 mg total) by mouth if needed. 03/02/2024 simethicone (MYLICON,GAS-X) 180 mg capsule Take 1 capsule (180 mg total) by mouth 1 (one) time. 01/14/2024 metoclopramide (REGLAN) 10 mg tablet Take 1 tablet (10 mg total) by mouth if needed. 03/16/2024 melatonin 5 mg tablet Take 1 tablet (5 mg total) by mouth at bedtime. 03/23/2024 levothyroxine (SYNTHROID, LEVOTHROID) 50 mcg tablet Take 1 tablet (50 mcg total) by mouth 1 (one) time each day. 01/04/2024 ibuprofen (ADVIL,MOTRIN) 800 mg tablet Take 1 tablet (800 mg total) by mouth if needed. 02/25/2024 fluticasone propionate (FLONASE) 50 mcg/actuation nasal spray Administer 1 spray into each nostril 1 (one) time each day. 02/27/2024 dicyclomine (BENTYL) 20 mg tablet Take 0.5 tablets (10 mg total) by mouth if needed. 01/14/2024 cloNIDine (CATAPRES) 0.1 mg tablet Take 1 tablet (0.1 mg total) by mouth 2 (two) times a day. 03/09/2024 cetirizine (ZyrTEC) 10 mg tablet Take 1 tablet (10 mg total) by mouth 1 (one) time each day. 12/25/2023 Laxative, bisacodyl, 5 mg EC tablet Take 1 tablet (5 mg total) by mouth if needed. 01/14/2024 ALPRAZolam (XANAX) 1 mg tablet Take 1 tablet (1 mg total) by mouth if needed. 03/09/2024 acarbose (PRECOSE) 100 mg tablet Take 1 tablet (100 mg total) by mouth 3 (three) times a day with meals. 03/23/2024 added in this encounter Care Teams Subassembler Relationship Specialty Start Date End Date Juve Crawford MD [address] [place] [address] Dr [address] EBONI Byers PCP - General Internal Medicine 10/13/20 documented as of this encounter
== END 2024-04-08 12:57 | disposition home or self-care (01) ==
LOC: HO.MRI 12:56
PROVIDERS: PCP Internal Medicine; Visit Provider Obstetrics & Gynecology
DX: N83.299 Other ovarian cyst, unspecified side (principal)
CPT/HCPCS: 72197; A9585

== ENCOUNTER 2024-04-13 08:32 | Outpatient (REF) | payer MEDICARE, MEDICAID, SELFPAY ==
[2024-04-13 08:47] LABS: MANUAL DIFF FLAG NO
[2024-04-13 09:08] LABS: Basophils Absolute Auto 0.1 X10*3/uL (0.0-0.2); Basophils Percent Auto 0.7 % (0-2); Eosinophils Absolute Auto 0.1 X10*3/uL (0.0-0.4); Eosinophils Percent Auto 1.9 % (0-4); Hematocrit 38.7 % (37.0-47.0); Hemoglobin 12.2 g/dl (12.0-16.0); Imm Gran Abs Auto 0.02 X10*3/uL (0.00-0.03); Imm Gran Pct Auto 0.3 % (0.0-0.4); Lymphocytes Absolute Auto 1.5 X10*3/uL (1.2-4.9); Lymphocytes Percent Auto 21.9 % (20-40); Mean Corpuscular HGB Conc 31.5 g/dl (31.0-35.0); Mean Corpuscular Hemoglobin 27.7 pg (27.0-33.0); Monocytes Absolute Auto 0.6 X10*3/uL (0.1-1.2); Monocytes Percent Auto 9.4 % (2-11); Neutrophils Absolute Auto 4.5 x10*3/uL (2.0-8.3); Neutrophils Percent Auto 65.8 % (45-73); Platelet Count 312 X10*3/uL (160-400); Red Cell Distribution Width 13.4 % (11.0-16.0); White Blood Count 6.8 X10*3/uL (4.8-10.8)
[2024-04-13 09:26] LABS: Estimated Average Glucose 108 mg/dL; Hemoglobin A1C 110.2698 umol/L; Hemoglobin A1c % 5.4 % (<6.0); Total Hemoglobin (HGBA1C) 3100.6127 umol/L
[2024-04-13 09:49] LABS: Appearance Urine Clear; Color Urine Yellow; Glucose Urine UA Negative (Negative); Leukocyte Esterase Urine Negative (Negative); Nitrite Urine Negative (Negative); PH 6.5 (5.0-9.0); Urine Blood Negative (Negative); Urine Ketones Trace mg/dL (Negative); Urine Protein Negative (Neg-Trace)
[2024-04-13 09:54] LABS: Alanine Aminotransferase 17 U/L (0-31); Albumin Level 4.2 g/dL (3.5-5.0); Alkaline Phosphatase 69 U/L (39-117); Anion Gap 9 (12-20); Aspartate Amino Transferase 31 U/L (5-31); Bilirubin Total 0.4 mg/dL (0.0-1.0); Blood Urea Nitrogen 14 mg/dL (9-16); Calcium 9.3 mg/dL (8.4-10.2); Carbon Dioxide 22 mmol/L (22-29); Chloride 112 mmol/L (96-108); Cholesterol 121 mg/dL (<200); Estimated Glomerular Filt Rate > 60; Glucose Fasting 86 mg/dL (60-99); HDL Cholesterol 53 mg/dL (>40); LDL Cholesterol Calculated 49 mg/dL (<100); Potassium 4.2 mmol/L (3.3-5.1); Sodium 139 mmol/L (135-145); Total Protein 8.2 g/dL (6.5-8.0); Triglycerides 95 mg/dL (<150)
[2024-04-13 10:00] LABS: Thyroid Stimulating Hormone 1.58 uIU/mL (0.32-4.0); Vitamin D 25-OH Total 37.1 ng/mL (>30)
--- OUTSIDE RECORDS SUMMARY | 2024-04-13 12:44 | XMS_ITS | Clinical Summary ---
Author Organization [employer] Address [address] [facility] [address] [place] [address] Care Team Providers Care Procedures Nurse Name Role Phone Unavailable Primary Care Provider [...] Alcohol/Substance Use Screening 1988 Tobacco Screening 1988 Family Planning (PISQ) 12/27/1991 Hepatitis C Screening 1994 Hepatitis B Vaccines [...] patient's age to complete this topic Insurance [facility] FULL
--- OUTSIDE RECORDS SUMMARY | 2024-04-13 12:44 | XMS_ITS | Encounter Summary ---
Author Organization [facility] Address [address] [place] [address] Care Team Providers Care Buffet Server Name Role Phone Juve Crawford MD Primary Care Provider [phone] Reason for Visit * Reason Comments Follow-up 1 year follow up Encounter Details Date Type Department Care Team (Latest Contact Info) Description 03/26/2024 10:00 AM EST Office Visit Bariatric Surgery - [place] [address] [place] [phone] Lluvia Rosales MD 175 [facility] [address] [place] [address] Class 1 obesity due to excess calories [...] Procedure Laterality Date OTHER SURGICAL HISTORY PROCEDURE: RI LAPS GSTR RSTCV PX W/BYP KAYLAH-EN-Y LIMB [...] AM EDT Office Visit Bariatric Surgery - [place] [address] [phone] Lluvia Rosales MD [address] [address] documented as of this encounter Results * (ABNORMAL) Zinc (03/26/2024 10:23 AM EST) Zinc 57(L) 60 - 130 ug/dL 03/30/2024 9:43 AM EST [facility] Comment: Elevated results may be due to sample collected in a non-certified trace element-free tube. This test was developed and the performance characteristics determined by [facility]. It has not been cleared or approved by the FDA. The laboratory is regulated under CLIA as qualified to perform high-complexity testing. This test is used for patient testing purposes. It should not be regarded as investigational or for research. Test performed at [facility], [address] , [place], [place] ??[address] ? [phone] Supriya Rouse MD, PhD - Plastic Welder Blood Venous blood specimen / Unknown Venipuncture / Unknown 03/26/2024 10:23 AM EST 03/26/2024 10:23 AM EST Lluvia Rosales MD LAB BLOOD ORDERABLES Performing Organization Address City/[facility]/ZIP Co de Phone Number [facility] [address] [place] [address] * Vitamin D 25 hydroxy (03/26/2024 10:23 AM EST) Vit D, 25-Hydroxy 31.6 30.0 - 80.0 ng/mL LAB CHEMISTRY METHOD 03/26/2024 3:04 PM EST [facility] Blood Venous blood specimen / Unknown Venipuncture / Unknown 03/26/2024 10:23 AM EST 03/26/2024 10:23 AM EST Lluvia Rosales MD LAB BLOOD ORDERABLES [facility] [address] [place] [address], * (ABNORMAL) Vitamin B12 (03/26/2024 10:23 AM EST) Vitamin B-12 232(L) 250 - 900 pcg/mL LAB CHEMISTRY METHOD 03/26/2024 3:36 PM EST [facility] Blood Venous blood specimen / Unknown Venipuncture / Unknown 03/26/2024 10:23 AM EST 03/26/2024 10:23 AM EST Lluvia Rosales MD LAB BLOOD ORDERABLES [facility] [address] [place] [address], * Vitamin B1 (03/26/2024 10:23 AM EST) Vitamin B1 Whole Blood 75 38 - 122 ug/L 03/31/2024 9:38 AM EST [facility] Comment: This test was developed and the performance characteristics determined by [facility]. It has not been cleared or approved by the FDA. The laboratory is regulated under CLIA as qualified to perform high-complexity testing. This test is used for patient testing purposes. It should not be regarded as investigational or for research. Test performed at [facility], [address] [place], [place] ??[address] ? [phone] Supriya Rouse MD, PhD - Plastic Welder Blood Venous blood specimen / Unknown Venipuncture / Unknown 03/26/2024 10:23 AM EST 03/26/2024 10:23 AM EST Lluvia Rosales MD LAB BLOOD ORDERABLES [facility] [address] [place] [address] * Vitamin A (03/26/2024 10:23 AM EST) Vitamin A 41 38 - 106 ug/dL 03/31/2024 6:40 AM EST [facility] Comment: This test was developed and the performance characteristics determined by [facility]. It has not been cleared or approved by the FDA. The laboratory is regulated under CLIA as qualified to perform high-complexity testing. This test is used for patient testing purposes. It should not be regarded as investigational or for research. Test performed at [facility], [address] , [place], [place] ??[address] ? [phone] Supriya Rouse MD, PhD - Plastic Welder Blood Venous blood specimen / Unknown Venipuncture / Unknown 03/26/2024 10:23 AM EST 03/26/2024 10:23 AM EST Lluvia Rosales MD LAB BLOOD ORDERABLES Performing Organization Address City/[facility]/ZIP Co de Phone Number [facility] [address] [place] [address] * Selenium serum (03/26/2024 10:23 AM EST) Selenium 149 63 - 160 mcg/L 04/05/2024 11:38 PM EST [facility] Comment: (Note) This test was developed and its analytical performance characteristics have been determined by [facility]. It has not been cleared or approved by the FDA. This assay has been validated pursuant to the CLIA regulations and is used for clinical purposes. [facility] [address] [address],[address] [facility] [address] Chan Francois MD, PhD Test Performed at: [facility] [address] [place] [address], [address] [place] [address] ??[phone] ? Alec Francois MD, PhD Blood Venous blood specimen / Unknown Venipuncture / Unknown 03/26/2024 10:23 AM EST 03/26/2024 10:23 AM EST Lluvia Rosales MD LAB BLOOD ORDERABLES [facility] [address] [place] [address] * Iron and TIBC (03/26/2024 10:23 AM EST) Iron 106 40 - 150 mcg/dL LAB CHEMISTRY METHOD 03/26/2024 3:36 PM EST [facility] TIBC 396 250 - 450 mcg/dL LAB CHEMISTRY METHOD 03/26/2024 3:36 PM EST [facility] Iron Saturation 27 15 - 50 % LAB CHEMISTRY METHOD 03/26/2024 3:36 PM EST [facility] Blood Venous blood specimen / Unknown Venipuncture / Unknown 03/26/2024 10:23 AM EST 03/26/2024 10:23 AM EST Lluvia Rosales MD LAB BLOOD ORDERABLES Performing Organization Address City/[facility]/ZIP Co de Phone Number [facility] [address] [place] [address], [place] [phone] * Folate (03/26/2024 10:23 AM EST) Folate 15.5 2.8 - 17.0 ng/ml LAB CHEMISTRY METHOD 03/26/2024 3:36 PM EST [facility] Blood Venous blood specimen / Unknown Venipuncture / Unknown 03/26/2024 10:23 AM EST 03/26/2024 10:23 AM EST Lluvia Rosales MD LAB BLOOD ORDERABLES Performing Organization Address City/[facility]/ZIP Co de Phone Number [facility] [address] [place] [address], [place] [phone] * Copper, serum (03/26/2024 10:23 AM EST) Copper 1229 810 - 1990 ug/L 03/31/2024 6:32 AM EST [facility] Comment: Copper values may be elevated to twice the normal levels in . Elevated results may be due to sample collected in a non-certified trace element-free tube. This test was developed and the performance characteristics determined by [facility]. It has not been cleared or approved by the FDA. The laboratory is regulated under CLIA as qualified to perform high-complexity testing. This test is used for patient testing purposes. It should not be regarded as investigational or for research. Test performed at [facility], [address] , [place], [place] ??[address] ? [phone] Supriya Rouse MD, PhD - Plastic Welder Blood Venous blood specimen / Unknown Venipuncture / Unknown 03/26/2024 10:23 AM EST 03/26/2024 10:23 AM EST Lluvia Rosales MD LAB BLOOD ORDERABLES [facility] [address] [place] [address] * Calcium (03/26/2024 10:23 AM EST) Calcium 9.1 8.5 - 10.5 mg/dL LAB CHEMISTRY METHOD 03/26/2024 3:36 PM EST [facility] Blood Venous blood specimen / Unknown Venipuncture / Unknown 03/26/2024 10:23 AM EST 03/26/2024 10:23 AM EST Lluvia Rosales MD LAB BLOOD ORDERABLES [facility] [address] [place] [address], [place] [phone] * Albumin (03/26/2024 10:23 AM EST) Albumin 3.7 3.2 - 5.0 g/dL LAB CHEMISTRY METHOD 03/26/2024 2:57 PM EST [facility] Blood Venous blood specimen / Unknown Venipuncture / Unknown 03/26/2024 10:23 AM EST 03/26/2024 10:23 AM EST Lluvia Rosales MD LAB BLOOD ORDERABLES Performing Organization Address City/[facility]/ZIP Co de Phone Number [facility] [address] [place] [address], [place] [phone] documented in this encounter Visit Diagnoses Diagnosis [...] 03/23/2024 added in this encounter Care Teams Buffet Server Relationship Specialty Start Date End Date Juve Crawford MD [address] [place] [address] [address] EBONI Byers PCP - General Internal Medicine 10/13/20 documented as of this encounter
--- OUTSIDE RECORDS SUMMARY | 2024-04-13 12:45 | XMS_ITS | Clinical Summary ---
Author Organization 175 [facility] Address 175 [place] [address] Phone Care Team Providers Care Bilingual Receptionist Name Role Phone Juve Crawford MD Primary Care Provider Allergies Active Allergy Reactions Criticality Noted Date [...] AM EST Office Visit Bariatric Surgery - [address] [address] Lluvia Rosales MD Class 1 obesity due to excess calories with body mass index (BMI) of 34.0 to 34.9 in adult, unspecified whether serious comorbidity present (Primary Dx); Postgastrectomy malabsorption from Last 3 Months Surgical History Surgery Date Site/Laterality Comments OTHER SURGICAL HISTORY PROCEDURE: DE LAPS GSTR RSTCV PX W/BYP KAYLAH-EN-Y LIMB [...] AM EDT Office Visit Bariatric Surgery - [place] 175 [facility] [address] [place] [phone] Lluvia Rosales MD 175 [facility] [address] [place] [address] Health Maintenance Due Date Last Done Comments [...] LAB CHEMISTRY METHOD 03/26/2024 3:36 PM EST [facility] TIBC 396 250 - 450 mcg/dL LAB CHEMISTRY METHOD 03/26/2024 3:36 PM EST [facility] Iron Saturation 27 15 - 50 % LAB CHEMISTRY METHOD 03/26/2024 3:36 PM EST [facility] Blood Venous blood specimen / Unknown Venipuncture / Unknown 03/26/2024 10:23 AM EST 03/26/2024 10:23 AM EST Lluvia Rosales MD LAB BLOOD ORDERABLES [facility]) [facility] [address] [place] [address], * Copper, serum (03/26/2024 10:23 AM EST) Copper 1229 810 - 1990 ug/L 03/31/2024 6:32 AM EST [facility] Comment: Copper values may be elevated to twice the normal levels in . Elevated results may be due to sample collected in a non-certified trace element-free tube. This test was developed and the performance characteristics determined by [facility]. It has not been cleared or approved by the FDA. The laboratory is regulated under CLIA as qualified to perform high-complexity testing. This test is used for patient testing purposes. It should not be regarded as investigational or for research. Test performed at [facility], [address] [place], [place] ??[address] ? [phone] Supriya Rouse MD, PhD - Retail Client Manager Blood Venous blood specimen / Unknown Venipuncture / Unknown 03/26/2024 10:23 AM EST 03/26/2024 10:23 AM EST Lluvia Rosales MD LAB BLOOD ORDERABLES Performing Organization Address [facility]/ZIP Co de Phone Number [facility] [address] [place] [address] * (ABNORMAL) Zinc (03/26/2024 10:23 AM EST) Zinc 57(L) 60 - 130 ug/dL 03/30/2024 9:43 AM EST [facility] Comment: Elevated results may be due to sample collected in a non-certified trace element-free tube. This test was developed and the performance characteristics determined by [facility]. It has not been cleared or approved by the FDA. The laboratory is regulated under CLIA as qualified to perform high-complexity testing. This test is used for patient testing purposes. It should not be regarded as investigational or for research. Test performed at [facility], [address] [place], [place] ??[address] ? [phone] Supriya Rouse MD, PhD - Retail Client Manager Blood Venous blood specimen / Unknown Venipuncture / Unknown 03/26/2024 10:23 AM EST 03/26/2024 10:23 AM EST Lluvia Rosales MD LAB BLOOD ORDERABLES [facility] [address] [place] [address] * Vitamin A (03/26/2024 10:23 AM EST) Vitamin A 41 38 - 106 ug/dL 03/31/2024 6:40 AM EST [facility] Comment: This test was developed and the performance characteristics determined by [facility]. It has not been cleared or approved by the FDA. The laboratory is regulated under CLIA as qualified to perform high-complexity testing. This test is used for patient testing purposes. It should not be regarded as investigational or for research. Test performed at [facility], [address] [facility] [place], [place] ??[address] ? [phone] Supriya Rouse MD, PhD - Retail Client Manager Blood Venous blood specimen / Unknown Venipuncture / Unknown 03/26/2024 10:23 AM EST 03/26/2024 10:23 AM EST Lluvia Rosales MD LAB BLOOD ORDERABLES [facility] [address] [place] [address] * Selenium serum (03/26/2024 10:23 AM EST) Selenium 149 63 - 160 mcg/L 04/05/2024 11:38 PM EST [facility] Comment: (Note) This test was developed and its analytical performance characteristics have been determined by [facility]. It has not been cleared or approved by the FDA. This assay has been validated pursuant to the CLIA regulations and is used for clinical purposes. [facility] [address] [address],[address] [facility] [address] Chan Francois MD, PhD Test Performed at: [facility] [address] [facility] [address], [address] [place], [place] ??[phone] ? Alec Francois MD, PhD Blood Venous blood specimen / Unknown Venipuncture / Unknown 03/26/2024 10:23 AM EST 03/26/2024 10:23 AM EST Lluvia Rosales MD LAB BLOOD ORDERABLES [facility] [address] [place] [address] * Vitamin D 25 hydroxy (03/26/2024 10:23 AM EST) Pathologist [facility] Vit D, 25-Hydroxy 31.6 30.0 - 80.0 ng/mL LAB CHEMISTRY METHOD 03/26/2024 3:04 PM EST [facility] Blood Venous blood specimen / Unknown Venipuncture / Unknown 03/26/2024 10:23 AM EST 03/26/2024 10:23 AM EST Lluvia Rosales MD LAB BLOOD ORDERABLES Performing Organization Address [facility] Co de Phone Number [facility] [address] [place] [address], * Vitamin B1 (03/26/2024 10:23 AM EST) [facility] Vitamin B1 Whole Blood 75 38 - 122 ug/L 03/31/2024 9:38 AM EST [facility] Comment: This test was developed and the performance characteristics determined by [facility]. It has not been cleared or approved by the FDA. The laboratory is regulated under CLIA as qualified to perform high-complexity testing. This test is used for patient testing purposes. It should not be regarded as investigational or for research. Test performed at [facility], [address] , [place], [place] ??[address] ? [phone] Supriya Rouse MD, PhD - Retail Client Manager Blood Venous blood specimen / Unknown Venipuncture / Unknown 03/26/2024 10:23 AM EST 03/26/2024 10:23 AM EST Lluvia Rosales MD LAB BLOOD ORDERABLES Performing Organization Address City/[facility]/ZIP Co de Phone Number [facility] [address] [place] [address] * Folate (03/26/2024 10:23 AM EST) Folate 15.5 2.8 - 17.0 ng/ml LAB CHEMISTRY METHOD 03/26/2024 3:36 PM EST [facility] Blood Venous blood specimen / Unknown Venipuncture / Unknown 03/26/2024 10:23 AM EST 03/26/2024 10:23 AM EST Lluvia oRsales MD LAB BLOOD ORDERABLES [facility] [address] [place] [address], * (ABNORMAL) Vitamin B12 (03/26/2024 10:23 AM EST) Pathologist [facility] Vitamin B-12 232(L) 250 - 900 pcg/mL LAB CHEMISTRY METHOD 03/26/2024 3:36 PM EST [facility] Blood Venous blood specimen / Unknown Venipuncture / Unknown 03/26/2024 10:23 AM EST 03/26/2024 10:23 AM EST Lluvia Rosales MD LAB BLOOD ORDERABLES [facility] [address] [place] [address], [place] [phone] * Calcium (03/26/2024 10:23 AM EST) Calcium 9.1 8.5 - 10.5 mg/dL LAB CHEMISTRY METHOD 03/26/2024 3:36 PM EST [facility] Blood Venous blood specimen / Unknown Venipuncture / Unknown 03/26/2024 10:23 AM EST 03/26/2024 10:23 AM EST Lluvia Rosales MD LAB BLOOD ORDERABLES Performing Organization Address City/[facility]/ZIP Co de Phone Number [facility] [address] [place] [address], [place] [phone] * Albumin (03/26/2024 10:23 AM EST) Albumin 3.7 3.2 - 5.0 g/dL LAB CHEMISTRY METHOD 03/26/2024 2:57 PM EST [facility] Blood Venous blood specimen / Unknown Venipuncture / Unknown 03/26/2024 10:23 AM EST 03/26/2024 10:23 AM EST Lluvia Rosales MD LAB BLOOD ORDERABLES Performing Organization Address [facility] Co de Phone Number [facility] [address] [place] [address], [place] [phone] from Last 3 Months Care Teams Bilingual Receptionist Relationship Specialty Start Date End Date Juve Crawford MD [address] [place] [address] Dr [address] [place] PCP - General Internal Medicine 10/13/20
== END 2024-04-13 08:33 | disposition home or self-care (01) ==
LOC: HO.LAB 08:32
PROVIDERS: PCP Internal Medicine; Visit Provider Internal Medicine
DX: D64.9 Anemia, unspecified (principal); E55.9 Vitamin D deficiency, unspecified; E78.00 Pure hypercholesterolemia, unspecified; R30.0 Dysuria; E11.9 Type 2 diabetes mellitus without complications; E03.9 Hypothyroidism, unspecified
CPT/HCPCS: 36415; 80053; 80061; 81003; 82306; 83036; 84439; 84443; 85025

== ENCOUNTER 2024-04-21 09:25 | Outpatient (REF) | payer MEDICARE, MEDICAID, SELFPAY ==
--- NOTE | ~2024-04-21 | XR_ITS ---
EXAMINATION: XR SHOULDER, RIGHT CLINICAL INFORMATION: M25.511 - Pain in right shoulder COMPARISON: 10/01/2017. TECHNIQUE: AP external rotation, Grashey, scapular Y, and axillary views of the right shoulder. FINDINGS: No fracture, dislocation, or suspicious bone lesion. No malalignment. Mild glenohumeral joint osteoarthritis present with subtle undersurface osteophytes. Joint spaces preserved. No AC joint abnormality. The subacromial space is preserved. No abnormal soft tissue calcifications. Remainder of the soft tissues and bony structures appear normal. XR/XR shoulder RT min 2V IMPRESSION: 1. No acute findings right shoulder. 2. Early osteoarthritis glenohumeral joint. Electronically signed by: Georges Aguillon MD 04/21/2024 11:31 AM [facility]
--- OUTSIDE RECORDS SUMMARY | 2024-04-21 11:05 | XMS_ITS | Encounter Summary ---
Author Organization [employer] Address [address] [place] [address] Care Team Providers Care Sales Project Manager Name Role Phone Juve Crawford MD Primary Care Provider [phone] Reason for Visit * Reason Comments Follow-up 1 year follow up Encounter Details Date Type Department Care Team (Latest Contact Info) Description 03/26/2024 10:00 AM EST Office Visit Bariatric Surgery - [place] [address] [place] [phone] Lluvia Rosales MD 175 [facility] [address] [place] [address] Class 1 obesity due to excess calories [...] Procedure Laterality Date OTHER SURGICAL HISTORY PROCEDURE: [place] LAPS GSTR RSTCV PX W/BYP KAYLAH-EN-Y LIMB [...] AM EDT Office Visit Bariatric Surgery - [place] [address] [phone] Lluvia Rosales MD [address] [address] documented as of this encounter Results * (ABNORMAL) Zinc (03/26/2024 10:23 AM EST) Zinc 57(L) 60 - 130 ug/dL 03/30/2024 9:43 AM EST [facility] Comment: Elevated results may be due to sample collected in a non-certified trace element-free tube. This test was developed and the performance characteristics determined by [facility]. It has not been cleared or approved by the FDA. The laboratory is regulated under CLIA as qualified to perform high-complexity testing. This test is used for patient testing purposes. It should not be regarded as investigational or for research. Test performed at [facility], [address] , [place], [place] ??[address] ? [phone] Supriya Rouse MD, PhD - Neurology Director Blood Venous blood specimen / Unknown Venipuncture / Unknown 03/26/2024 10:23 AM EST 03/26/2024 10:23 AM EST Lluvia Rosales MD LAB BLOOD ORDERABLES Performing Organization Address City/[facility]/ZIP Co de Phone Number [facility] [address] [place] [address] * Vitamin D 25 hydroxy (03/26/2024 10:23 AM EST) Vit D, 25-Hydroxy 31.6 30.0 - 80.0 ng/mL LAB CHEMISTRY METHOD 03/26/2024 3:[address] [facility] Blood Venous blood specimen / Unknown Venipuncture / Unknown 03/26/2024 10:23 AM EST 03/26/2024 10:23 AM EST Lluvia Rosales MD LAB BLOOD ORDERABLES [facility] [address] [place] [address], * (ABNORMAL) Vitamin B12 (03/26/2024 10:23 AM EST) Vitamin B-12 232(L) 250 - 900 pcg/mL LAB CHEMISTRY METHOD 03/26/2024 3:[address] [facility] Blood Venous blood specimen / Unknown Venipuncture / Unknown 03/26/2024 10:23 AM EST 03/26/2024 10:23 AM EST Lluvia Rosales MD LAB BLOOD ORDERABLES [facility] [address] [place] [address], * Vitamin B1 (03/26/2024 10:23 AM EST) Vitamin B1 Whole Blood 75 38 - 122 ug/L 03/31/2024 9:38 AM EST [facility] Comment: This test was developed and the performance characteristics determined by [facility]. It has not been cleared or approved by the FDA. The laboratory is regulated under CLIA as qualified to perform high-complexity testing. This test is used for patient testing purposes. It should not be regarded as investigational or for research. Test performed at [facility], [address] [place], [place] ??[address] ? [phone] Supriya Rouse MD, PhD - Neurology Director Blood Venous blood specimen / Unknown Venipuncture / Unknown 03/26/2024 10:23 AM EST 03/26/2024 10:23 AM EST Lluvia Rosales MD LAB BLOOD ORDERABLES [facility] [address] [place] [address] * Vitamin A (03/26/2024 10:23 AM EST) Vitamin A 41 38 - 106 ug/dL 03/31/2024 6:40 AM EST [facility] Comment: This test was developed and the performance characteristics determined by [facility]. It has not been cleared or approved by the FDA. The laboratory is regulated under CLIA as qualified to perform high-complexity testing. This test is used for patient testing purposes. It should not be regarded as investigational or for research. Test performed at [facility], [address] , [place], [place] ??[address] ? [phone] Supriya Rouse MD, PhD - Neurology Director Blood Venous blood specimen / Unknown Venipuncture / Unknown 03/26/2024 10:23 AM EST 03/26/2024 10:23 AM EST Lluvia Rosales MD LAB BLOOD ORDERABLES Performing Organization Address City/[facility]/ZIP Co de Phone Number [facility] [address] [place] [address] * Selenium serum (03/26/2024 10:23 AM EST) Selenium 149 63 - 160 mcg/L 04/05/2024 11:38 PM EST [facility] Comment: (Note) This test was developed and its analytical performance characteristics have been determined by [facility]. It has not been cleared or approved by the FDA. This assay has been validated pursuant to the CLIA regulations and is used for clinical purposes. [facility] [address] [address],[address] [facility] [address] Chan Francois MD, PhD Test Performed at: [facility] [address] [place] [address], [address] [place] [address] ??[phone] ? Alec Francois MD, PhD Blood Venous blood specimen / Unknown Venipuncture / Unknown 03/26/2024 10:23 AM EST 03/26/2024 10:23 AM EST Lluvia Rosales MD LAB BLOOD ORDERABLES [facility] [address] [place] [address] * Iron and TIBC (03/26/2024 10:23 AM EST) Iron 106 40 - 150 mcg/dL LAB CHEMISTRY METHOD 03/26/2024 3:[address] [facility] TIBC 396 250 - 450 mcg/dL LAB CHEMISTRY METHOD 03/26/2024 3:[address] [facility] Iron Saturation 27 15 - 50 % LAB CHEMISTRY METHOD 03/26/2024 3:[address] [facility] Blood Venous blood specimen / Unknown Venipuncture / Unknown 03/26/2024 10:23 AM EST 03/26/2024 10:23 AM EST Lluvia Rosales MD LAB BLOOD ORDERABLES Performing Organization Address City/[facility]/ZIP Co de Phone Number [facility] [address] [place] [address], [place] [phone] * Folate (03/26/2024 10:23 AM EST) Folate 15.5 2.8 - 17.0 ng/ml LAB CHEMISTRY METHOD 03/26/2024 3:[address] [facility] Blood Venous blood specimen / Unknown Venipuncture / Unknown 03/26/2024 10:23 AM EST 03/26/2024 10:23 AM EST Lluvia Rosales MD LAB BLOOD ORDERABLES Performing Organization Address City/[facility]/ZIP Co de Phone Number [facility] [address] [place] [address], [place] [phone] * Copper, serum (03/26/2024 10:23 AM EST) Copper 1229 810 - 1990 ug/L 03/31/2024 6:32 AM EST [facility] Comment: Copper values may be elevated to twice the normal levels in . Elevated results may be due to sample collected in a non-certified trace element-free tube. This test was developed and the performance characteristics determined by [facility]. It has not been cleared or approved by the FDA. The laboratory is regulated under CLIA as qualified to perform high-complexity testing. This test is used for patient testing purposes. It should not be regarded as investigational or for research. Test performed at [facility], [address] , [place], [place] ??[address] ? [phone] Supriya Rouse MD, PhD - Neurology Director Blood Venous blood specimen / Unknown Venipuncture / Unknown 03/26/2024 10:23 AM EST 03/26/2024 10:23 AM EST Lluvia Rosales MD LAB BLOOD ORDERABLES [facility] [address] [place] [address] * Calcium (03/26/2024 10:23 AM EST) Calcium 9.1 8.5 - 10.5 mg/dL LAB CHEMISTRY METHOD 03/26/2024 3:[address] [facility] Blood Venous blood specimen / Unknown Venipuncture / Unknown 03/26/2024 10:23 AM EST 03/26/2024 10:23 AM EST Lluvia Rosales MD LAB BLOOD ORDERABLES [facility] [address] [place] [address], [place] [phone] * Albumin (03/26/2024 10:23 AM EST) Albumin 3.7 3.2 - 5.0 g/dL LAB CHEMISTRY METHOD 03/26/2024 2:[address] [facility] Blood Venous blood specimen / Unknown Venipuncture / Unknown 03/26/2024 10:23 AM EST 03/26/2024 10:23 AM EST Lluvia Rosales MD LAB BLOOD ORDERABLES Performing Organization Address City/[facility]/ZIP Co de Phone Number [facility] [address] [place] [address], [place] [phone] documented in this encounter Visit Diagnoses Diagnosis [...] 03/23/2024 added in this encounter Care Teams Sales Project Manager Relationship Specialty Start Date End Date Juve Crawford MD [address] [place] [address] Dr [address] EBONI Byers PCP - General Internal Medicine 10/13/20 documented as of this encounter
--- OUTSIDE RECORDS SUMMARY | 2024-04-21 11:05 | XMS_ITS | Clinical Summary ---
Author Organization [employer] Address [address] [facility] 7t [place] [address] Care Team Providers Care Car Tracer Name Role Phone Unavailable Primary Care Provider [...] patient's age to complete this topic Insurance [facility] FULL
--- OUTSIDE RECORDS SUMMARY | 2024-04-21 11:05 | XMS_ITS | Clinical Summary ---
Author Organization 175 [facility] Address [address] [place] [address] Phone Care Team Providers Care Picking Machine Operator Helper Name Role Phone Juve Crawford MD Primary [...] AM EST Office Visit Bariatric Surgery - [address] [address] Lluvia Rosales MD Class 1 [...] AM EDT Office Visit Bariatric Surgery - [place] 175 [facility] [address] [place] [phone] Lluvia Rosales MD 175 [facility] [address] [place] [address] Health Maintenance Due Date Last Done Comments [...] EST Lluvia Rosales MD LAB BLOOD ORDERABLES [facility] [address] [place] [address], * Copper, serum (03/26/2024 10:23 AM EST) Copper 1229 810 - 1990 ug/L 03/31/2024 6:32 AM EST [facility] Comment: Copper values may be elevated to twice the normal levels in . Elevated results may be due to sample collected in a non-certified trace element-free tube. This test was developed and the performance characteristics determined by [facility]. It has not been cleared or approved by the FDA. The laboratory is regulated under CLIA as qualified to perform high-complexity testing. This test is used for patient testing purposes. It should not be regarded as investigational or for research. Test performed at [facility], [address] [place], [place] ??[address] ? [phone] Supriya Rouse MD, PhD - Chop Saw Operator Blood Venous blood specimen / Unknown Venipuncture / Unknown 03/26/2024 10:23 AM EST 03/26/2024 10:23 AM EST Lluvia Rosales MD LAB BLOOD ORDERABLES Performing Organization Address [facility]/ZIP Co de Phone Number [facility] [address] [place] [address] * (ABNORMAL) Zinc (03/26/2024 10:23 AM EST) Zinc 57(L) 60 - 130 ug/dL 03/30/2024 9:43 AM EST [facility] Comment: Elevated results may be due to sample collected in a non-certified trace element-free tube. This test was developed and the performance characteristics determined by [facility]. It has not been cleared or approved by the FDA. The laboratory is regulated under CLIA as qualified to perform high-complexity testing. This test is used for patient testing purposes. It should not be regarded as investigational or for research. Test performed at [facility], [address] [place], [place] ??[address] ? [phone] Supriya Rouse MD, PhD - Chop Saw Operator Blood Venous blood specimen / Unknown Venipuncture / Unknown 03/26/2024 10:23 AM EST 03/26/2024 10:23 AM EST Lluvia Rosales MD LAB BLOOD ORDERABLES [facility] [address] [place] [address] * Vitamin A (03/26/2024 10:23 AM EST) Vitamin A 41 38 - 106 ug/dL 03/31/2024 6:40 AM EST [facility] Comment: This test was developed and the performance characteristics determined by [facility]. It has not been cleared or approved by the FDA. The laboratory is regulated under CLIA as qualified to perform high-complexity testing. This test is used for patient testing purposes. It should not be regarded as investigational or for research. Test performed at [facility], [address] [facility] [place], [place] ??[address] ? [phone] Supriya Rouse MD, PhD - Chop Saw Operator Blood Venous blood specimen / Unknown Venipuncture / Unknown 03/26/2024 10:23 AM EST 03/26/2024 10:23 AM EST Lluvia Rosales MD LAB BLOOD ORDERABLES [facility] [address] [place] [address] * Selenium serum (03/26/2024 10:23 AM EST) Selenium 149 63 - 160 mcg/L 04/05/2024 11:38 PM EST [facility] Comment: (Note) This test was developed and its analytical performance characteristics have been determined by [employer]. It has not been cleared or approved by the FDA. This assay has been validated pursuant to the CLIA regulations and is used for clinical purposes. [facility] [address] [address],[address] [facility] [address] Chan Francois MD, PhD Test Performed at: [facility] [address] [facility] [address], [address] [place], [place] ??[phone] ? Alec Francois MD, PhD Blood Venous blood specimen / Unknown Venipuncture / Unknown 03/26/2024 10:23 AM EST 03/26/2024 10:23 AM EST Lluvia Rosales MD LAB BLOOD ORDERABLES [facility] [address] [place] [address] * Vitamin D 25 hydroxy (03/26/2024 10:23 AM EST) Pathologist [facility] Vit D, 25-Hydroxy 31.6 30.0 - 80.0 ng/mL LAB CHEMISTRY METHOD 03/26/2024 3:04 PM EST [facility] Blood Venous blood specimen / Unknown Venipuncture / Unknown 03/26/2024 10:23 AM EST 03/26/2024 10:23 AM EST Lluvia Rosales MD LAB BLOOD ORDERABLES Performing Organization Address [facility] Co de Phone Number [facility] [address] [place] [address], * Vitamin B1 (03/26/2024 10:23 AM EST) [facility] Vitamin B1 Whole Blood 75 38 - 122 ug/L 03/31/2024 9:38 AM EST [facility] Comment: This test was developed and the performance characteristics determined by [facility]. It has not been cleared or approved by the FDA. The laboratory is regulated under CLIA as qualified to perform high-complexity testing. This test is used for patient testing purposes. It should not be regarded as investigational or for research. Test performed at [facility], [address] , [place], [place] ??[address] ? [phone] Supriya Rouse MD, PhD - Chop Saw Operator Blood Venous blood specimen / Unknown Venipuncture / Unknown 03/26/2024 10:23 AM EST 03/26/2024 10:23 AM EST Lluvia Rosales MD LAB BLOOD ORDERABLES Performing Organization Address City/[facility]/ZIP Co de Phone Number [facility] [address] [place] [address] * Folate (03/26/2024 10:23 AM EST) Folate 15.5 2.8 - 17.0 ng/ml LAB CHEMISTRY METHOD 03/26/2024 3:36 PM EST [facility] Blood Venous blood specimen / Unknown Venipuncture / Unknown 03/26/2024 10:23 AM EST 03/26/2024 10:23 AM EST Lluvia Rosales MD LAB BLOOD ORDERABLES [facility] [address] [place] [address], * (ABNORMAL) Vitamin B12 (03/26/2024 10:23 AM EST) Pathologist [facility] Vitamin B-12 232(L) 250 - 900 pcg/mL LAB CHEMISTRY METHOD 03/26/2024 3:36 PM EST [facility] Blood Venous blood specimen / Unknown Venipuncture / Unknown 03/26/2024 10:23 AM EST 03/26/2024 10:23 AM EST Lluvia Rosales MD LAB BLOOD ORDERABLES [facility] [address] [place] [address], [place] [phone] * Calcium (03/26/2024 10:23 AM EST) Calcium 9.1 8.5 - 10.5 mg/dL LAB CHEMISTRY METHOD 03/26/2024 3:36 PM EST [facility] Blood Venous blood specimen / Unknown Venipuncture / Unknown 03/26/2024 10:23 AM EST 03/26/2024 10:23 AM EST Lluvia Rosales MD LAB BLOOD ORDERABLES Performing Organization Address City/[facility]/ZIP Co de Phone Number [facility] [address] [place] [address], [place] [phone] * Albumin (03/26/2024 10:23 AM EST) Albumin 3.7 3.2 - 5.0 g/dL LAB CHEMISTRY METHOD 03/26/2024 2:57 PM EST [facility] Blood Venous blood specimen / Unknown Venipuncture / Unknown 03/26/2024 10:23 AM EST 03/26/2024 10:23 AM EST Lluvia Rosales MD LAB BLOOD ORDERABLES Performing Organization Address [facility] Co de Phone Number [facility] [address] [place] [address], [place] [phone] from Last 3 Months Care Teams Picking Machine Operator Helper Relationship Specialty Start Date End Date Juve Crawford MD [address] [place] [address] Dr [address] [place] PCP - General Internal Medicine 10/13/20
== END 2024-04-21 09:26 | disposition home or self-care (01) ==
LOC: HO.XRAY 09:25
PROVIDERS: PCP Internal Medicine; Visit Provider Internal Medicine
DX: E78.00 Pure hypercholesterolemia, unspecified (principal); E11.9 Type 2 diabetes mellitus without complications; E03.9 Hypothyroidism, unspecified; G43.909 Migraine, unspecified, not intractable, without status migrainosus; K59.04 Chronic idiopathic constipation; K21.9 Gastro-esophageal reflux disease without esophagitis; D64.9 Anemia, unspecified; E53.8 Deficiency of other specified B group vitamins; E55.9 Vitamin D deficiency, unspecified; J30.9 Allergic rhinitis, unspecified; M51.360 Other intervertebral disc degeneration, lumbar region with discogenic back pain only; M47.812 Spondylosis without myelopathy or radiculopathy, cervical region; M89.8X1 Other specified disorders of bone, shoulder; M79.2 Neuralgia and neuritis, unspecified; G47.00 Insomnia, unspecified; F41.9 Anxiety disorder, unspecified; E66.9 Obesity, unspecified; M25.511 Pain in right shoulder; Z79.899 Other long term (current) drug therapy
CPT/HCPCS: 73030; 96127; 99212

== ENCOUNTER 2024-04-21 09:25 | Outpatient (AMB) | payer MEDICARE, MEDICAID, SELFPAY ==
[2024-04-21 09:30] VITALS: BP 122/80; PULSE 67; O2SAT 99; BMI 34.3
--- NOTE | 2024-04-21 09:30 | MHC.PC.OV ---
Vital Signs 04/21/24 09:30 Height 5 ft Weight 175 lb 8 oz BMI 34.3 BP 122/80 Blood Pressure Location Lt brachial Position Sitting Pulse 67 Pulse Source Pulse Oximeter Pulse Oximetry (%) 99 Oxygen Delivery Method Room Air Intake Visit Reasons: DM, hyperlipidemia, hypothyroidism, low back pain Break Up Worker Required: No Accompanied by: Self / Same As Patient Allergies lisinopril [LISINOPRIL] Allergy (Severe, Verified 04/21/24 09:57) ANAPYHLAXIS, swelling metformin [METFORMIN] Allergy (Severe, Verified 04/21/24 09:57) ANAPHYLAXIS, diarrhea sumatriptan [From IMITREX] Allergy (Severe, Verified 04/21/24 09:57) ANAPHYLAXIS, sedation Medication List - Last Reconciled 04/21/24 by Juve Crawford MD acarbose 100 mg PO TID alcohol swabs (Alcohol Pads) 1 pad topical TID 30 days alprazolam 1 mg PO TID PRN bisacodyl (Laxative (bisacodyl)) 5 - 10 mg (1 - 2 x 5 mg) PO BEDTIME blood sugar diagnostic (FreeStyle Lite Strips) test blood sugar once a day as instructed - frequent low blood sugar readings blood-glucose meter (FreeStyle Lite Meter kit) As directed once a day cetirizine 10 mg PO DAILY PRN 90 days clonidine HCl 0.1 mg PO DAILY clotrimazole-betamethasone 1-0.05 % 1 appl topical BID 5 days cyanocobalamin (vitamin B-12) 500 mcg sublingual daily, saturday - saturday; 30 days dexlansoprazole 60 mg PO DAILY dicyclomine 20 mg PO QID PRN ferrous sulfate 325 mg PO DAILY fluticasone propionate 50 mcg/actuation 1 spray intranasal DAILY hydrocortisone 2.5% (Proctosol HC) 1 appl NE BID ibuprofen 600 mg PO Q8H PRN ibuprofen 800 mg PO TID PRN 30 days ipratropium bromide 1 spray intranasal BID lancets (FreeStyle Lancets) test blood sugar once as instructed - frequent LOW blood sugar readings levonorgestrel (Mirena) 1 device intrauterine ONCE levothyroxine 50 mcg PO DAILY 90 days linaclotide (Linzess) 290 mcg PO DAILY 30 days melatonin 5 - 10 mg PO BEDTIME PRN meloxicam 15 mg PO DAILY metoclopramide HCl (Reglan) 10 mg PO QIDACHS mometasone 0.1% 1 appl topical DAILY PRN zrdyfwyqbruu-kqzd-zjgpv acid 18-400 mg-mcg (Certavite-Antioxidant) 1 tab PO DAILY oxybutynin chloride ER 10 mg PO DAILY pyridoxine (vitamin B6) 100 mg PO DAILY rosuvastatin 5 mg PO DAILY simethicone 180 mg PO QID 30 days topiramate 100 mg PO BEDTIME 90 days tramadol 1 tablet 1 to 2 times a day orally ONLY NEEDED for SEVERE PAIN; 30 days Tobacco use date assessed: 04/21/24 Dental Screening Dental Screen Date: 04/21/24 Did you have a dental visit in the last 12 months?: No Did you have a dental problem in the last 6 months where you did not have access to dental care?: No Was dental information given to patient?: No HPI DM, hyperlipidemia, hypothyroidism, low back pain HPI Details Patient comes in today for her follow up visit States that she has been experiencing increased pain and discomfort over the back of her right shoulder for the past 3 days Notes that she has pain radiating into her right arm and hand at times and that raising her right arm above the shoulder level makes her arm feel a lot worse She does not recall any recent injury or trauma to her right arm or right shoulder States that she feels okay otherwise She denies any headaches or dizziness Denies any chest pains, no increased SOB No nausea/vomiting, no abdominal pain No change in bowel habits noted States that her chronic joint pains remain adequately controlled on her current Rx Needs a few of her Rx refilled She had her follow up labs done last week - to discuss her results [facility] Medical History (Updated 04/21/24 @ 10:11 by Juve Crawford MD) Vulvovaginitis Vulvar abscess Lumbar degenerative disc disease Foreign body in throat Lumbar back pain with radiculopathy affecting right lower extremity Rhinitis ASCUS of cervix with negative high risk HPV Internal derangement of right knee Lumbar radicular pain Renal calculi Hypothyroidism (acquired) Anemia Vitamin D deficiency Pure hypercholesterolemia Obesity (BMI 30-39.9) Costochondritis Migraine Allergic rhinitis Diabetes mellitus Occipital neuralgia of left side Chronic pain syndrome Spondylosis of cervical spine without myelopathy Arthritis EKG abnormalities Anal fissure Gastroparesis Hepatomegaly MIO on CPAP Insomnia Anxiety Constipation GERD (gastroesophageal reflux disease) B12 deficiency Proteinuria Type 2 diabetes mellitus with other diabetic kidney complication Hypoglycemia after GI (gastrointestinal) surgery Surgical History H/O colonoscopy H/O gastric bypass History of tubal ligation Hx of lithotripsy History of umbilical hernia Hx of section History of esophagogastroduodenoscopy (EGD) Hx of bilateral breast reduction surgery Hx of cholecystectomy Family History Father Liver cancer Hypertension Diabetes mellitus CVD (cardiovascular disease) Liver failure Mother Hypercholesterolemia Breast cancer Asthma Depression Maternal Grandmother Diabetes mellitus Hypertension Paternal Grandmother Diabetes mellitus Hypertension Social History Household Members: Significant Other Housing: House Alcohol intake: never Patient Tobacco Use Status: Never used Tobacco e-Cigarette/Vaping Use: Never Used Second Hand Smoke Exposure: Yes service: No Current occupational status: disabled Cognitive needs: No Hearing needs: No Vision needs: Yes Female Reproductive History Menstrual Age of Menarche: 11 Questionnaire PHQ-9 Over the last 2 weeks, how often have you been bothered by any of the following problems? 1. Little interest or pleasure in doing things: not at all 2. Feeling down, depressed, or hopeless: not at all 3. Trouble falling or staying asleep, or sleeping too much: not at all 4. Feeling tired or having little energy: not at all 5. Poor appetite or overeating: not at all 6. Feeling bad about yourself - or that you are a failure or have let yourself or your family down: not at all 7. Trouble concentrating on things, such as reading the newspaper or watching television: not at all 8. Moving or speaking so slowly that other people could have noticed. Or the opposite - being so fidgety or restless that you have been moving around a lot more than usual: not at all 9. Thoughts that you would be better off or of hurting yourself in some way: not at all Total score: 0 Depression Screening Interpretation: Negative Depression Screening Done: Yes 35798 - PHQ-9 Billing: Yes Source: Developed by Drs. Arthur L. ReneeAmira amado Kurt Kroenke and colleagues, with an educational beatriz from [employer]. Thrive Questionnaire Date Thrive assessed: 04/21/24 I am a: Patient What is your living situation today?: I have a steady place to live Within the past 12 months, did the food you bought not last and you didn't have the money to get more?: Never true Within the past 12 months, did you worry whether your food would run out before you got money to buy more?: Never true Do you have trouble paying for medicines?: No Do you have trouble getting transportation to medical appointments?: No Do you have trouble paying your heating and electricity bill?: No Do you have trouble taking care of your child, family member or friend?: No Do you have trouble with day-to-day activities such as bathing, preparing meals, shopping, managing finances, etc.?: No Are you currently unemployed and looking for a job?: I choose not to answer this question Are you interested in more education?: No Please select the resources that you would like help with: None Currently or been in a relationship where the following occur: No concerns reported THRIVE Score: 0 AUDIT C Alcohol Use Questionnaire (AUDIT-C) 1. How often do you have a drink containing alcohol?: Never 3. How often do you have six or more drinks on one occasion?: Never Total Score: 0 Score Reviewed/Action Taken: Yes SUSAN-7 AMB Questionnaire SUSAN-7 Date SUSAN - 7 assessed: 04/21/24 Feeling nervous, anxious, or on edge: 0 = Not at all Not being able to stop or control worryin = Not at all Worrying too much about different things: 0 = Not at all Trouble relaxin = Not at all Being so restless that it is hard to sit still: 0 = Not at all Becoming easily annoyed or irritable: 0 = Not at all Feeling afraid as if something awful might happen: 0 = Not at all Total SUSAN-7 score (0-4 normal; 5-9 mild; 10-14 moderate; 15-21 severe): 0 Source: Developed by Amira Elmore Kurt Kroenke and colleagues, with an educational beatriz from [employer]. Review of Systems Const Denies chills, Denies fatigue, Denies fever(s) and Denies headache(s) (controlled) ENT Denies dysphagia, Denies dizziness, Denies otalgia, Denies headache(s) (controlled), Reports neck pain, Denies odynophagia and Denies sore throat Card Denies chest pain, Denies lightheadedness, Denies palpitations and Denies dyspnea Resp Denies chest congestion, Denies cough and Denies dyspnea GI Denies abdominal pain, Reports constipation (chronic), Denies dysphagia, Denies diarrhea, Denies nausea, Denies odynophagia and Denies vomiting Denies difficulty voiding, Denies nocturia, Denies dysuria and Denies urinary urgency Musc Reports back pain (chronic), Reports arthralgias (right scapular area), Reports neck pain, Reports radiating pain into limb (down right leg and into the foot; into the right arm recently) and Denies tingling Skin/Breast Denies rash Neuro Denies dizziness, Denies headache(s) (controlled) and Denies tingling Endo Denies fatigue and Denies palpitations Physical exam (Primary Care) Vital Signs: Last Vital Signs Pulse 67 04/21/24 09:30 BP 122/80 04/21/24 09:30 Pulse Ox 99 04/21/24 09:30 Oxygen Delivery Method Room Air 04/21/24 09:30 BMI result Body Mass Index 34.3 Tobacco/Smoking Status: Tobacco use Status Tobacco use date assessed 04/21/24 04/21/24 09:36 Patient Tobacco Use Status Never used Tobacco 04/21/24 09:36 e-Cigarette/Vaping Use Never Used 04/21/24 09:36 PHQ-9: PHQ-9 Score PHQ-9: Total score 0 04/21/24 09:36 Depression Screening Interpretation: Negative Thrive Assessment: Date of Thrive Assessment Date Thrive assessed 04/21/24 04/21/24 09:36 Currently or been in a relationship where the following occur: No concerns reported Const General: no acute distress and alert HENMT Ears: TM's normal bilaterally and EAC's normal Throat: Yes posterior oropharynx normal and Yes tonsils normal (no TP congestion noted) Neck Neck: Yes supple and No lymphadenopathy Thyroid: Thyroid normal Resp Auscultation: clear to auscultation bilaterally, no rales and no wheezes Cardio Rate: regular rate Rhythm: regular rhythm Heart sounds: no murmurs GI Palpation (GI): Soft to palpation and nontender Auscultation: normal bowel sounds General: Yes no CVA tenderness Back/Spine/Pelvis Back: no CVA tenderness Cervical Spine: Cervical spine tenderness Thoracic/Lumbar Spine: paraspinal muscle tenderness on the right in the upper lumbar, in the mid lumbar and in the lower lumbar and lumbar spinal tenderness Skin Rashes: no rashes Extrem General: Yes no clubbing, cyanosis or edema Right upper extremity: shoulder/upper arm Details: tenderness Location: of the scapula and normal ROM (but increased radicular symptoms when she raises her arm ); no swelling Results Reviewed Results Reviewed: Laboratory Tests 04/13/24 04/13/24 08:37 08:44 WBC 6.8 Hgb 12.2 Hct 38.7 Plt Count 312 Sodium 139 Potassium 4.2 Creatinine 0.76 Estimated GFR > 60 Fasting Glucose 86 Hemoglobin A1c % 5.4 Calcium 9.3 D AST 31 ALT 17 Triglycerides 95 Cholesterol 121 LDL Cholesterol, Calc 49 HDL Cholesterol 53 25-OH Vitamin D Total 37.1 TSH 1.58 Free T4 0.90 Urine pH 6.5 Ur Specific [place] 1.020 Urine Protein Negative Urine Glucose (UA) Negative Urine Blood Negative Urine Nitrite Negative Ur Leukocyte Esterase Negative Coding Level of Care Code Est Pt Level 4 (88347) Diagnoses Pure hypercholesterolemia E78.00 Type 2 diabetes mellitus without complication, without long-term current use of insulin E11.9 Diabetes mellitus type: type 2 Diabetes mellitus extermination inspector insulin use: without senior living use Diabetes mellitus complication status: without complication Hypothyroidism (acquired) E03.9 Migraine without status migrainosus, not intractable, unspecified migraine type G43.909 Migraine type: unspecified Status migrainosus presence: without status migrainosus Intractability: not intractable Chronic idiopathic constipation K59.04 Gastroesophageal reflux disease without esophagitis K21.9 Esophagitis presence: without esophagitis Anemia, unspecified type D64.9 Anemia type: unspecified type B12 deficiency E53.8 Vitamin D deficiency E55.9 Allergic rhinitis, unspecified seasonality, unspecified trigger J30.9 Allergic rhinitis trigger: unspecified Allergic rhinitis seasonality: unspecified Degeneration of intervertebral disc of lumbar region with discogenic back pain M51.360 Disc-related pain type: discogenic back pain only Spondylosis of cervical spine without myelopathy M47.812 Pain of right scapula M89.8X1 Radicular pain in right arm M79.2 Insomnia, unspecified type G47.00 Insomnia type: unspecified Anxiety F41.9 Obesity (BMI 30-39.9) E66.9 Additional Codes PHQ-9 - 23549 - PHQ-9 Billing: Yes ([id number]) Assessment & Plan Assessment & Plan (1) Pure hypercholesterolemia: Code(s): E78.00 - Pure hypercholesterolemia, unspecified Category: Medical Plan: Results of her labs done last week reviewed and discussed with patient Reinforced low cholesterol diet Continue Rosuvastatin 5 mg QD Will recheck her labs and fasting lipids in 3 months for follow up (2) Diabetes mellitus: Code(s): E11.9 - Type 2 diabetes mellitus without complications Category: Medical Qualifiers: Diabetes mellitus type: type 2 Diabetes mellitus extermination inspector insulin use: without senior living use Diabetes mellitus complication status: without complication Qualified Code(s): E11.9 - Type 2 diabetes mellitus without complications Plan: Her HgbA1c remains normal at 5.4% on her labs done last week; was previously at 5.1% a few months ago - goal is <6.5% Reinforced diabetic diet Continue Acarbose 100 mg TID Follow up with endocrinology as needed - she has reportedly been advised by endocrinology that since her diabetes has been very well controlled, she can just follow up with her PCP and see them only on an as-needed basis (3) Hypothyroidism (acquired): Code(s): E03.9 - Hypothyroidism, unspecified Category: Medical Plan: Her TFTs remain normal on her recent labs Continue Levothyroxine 50 mcg QD - Rx refilled Will continue to monitor her TFTs regularly (4) Migraine: Code(s): G43.909 - Migraine, unspecified, not intractable, without status migrainosus Category: Medical Qualifiers: Migraine type: unspecified Status migrainosus presence: without status migrainosus Intractability: not intractable Qualified Code(s): G43.909 - Migraine, unspecified, not intractable, without status migrainosus Plan: Reinforced avoidance of potential migraine triggers States that her migraine headaches have been stable on her current prophylactic Rx - continue Topiramate 100 mg Q HS (5) Chronic idiopathic constipation: Code(s): K59.04 - Chronic idiopathic constipation Category: Medical Plan: Reinforced increased oral fluids and dietary fiber Continue Linzess 290 mcg QD S/P screening colonoscopy on 11/08/22 - recommend repeat colonoscopy in 2 to 3 years due to suboptimal prep Follow up with GI as scheduled (6) GERD (gastroesophageal reflux disease): Code(s): K21.9 - Gastro-esophageal reflux disease without esophagitis Category: Medical Qualifiers: Esophagitis presence: without esophagitis Qualified Code(s): K21.9 - Gastro-esophageal reflux disease without esophagitis Plan: Dietary restrictions reinforced Continue Omeprazole 40 mg QD Follow up with GI as scheduled (7) Anemia: Code(s): D64.9 - Anemia, unspecified Category: Medical Qualifiers: Anemia type: unspecified type Qualified Code(s): D64.9 - Anemia, unspecified Plan: Patient is still mildly anemic but her H/H have remained stable Continue Ferrous sulfate 325 mg QD and Vitamin B12 1000 mcg QD Will continue to monitor her CBC regularly (8) B12 deficiency: Code(s): E53.8 - Deficiency of other specified B group vitamins Category: Medical Plan: Continue Vitamin B12 tablets 1000 mcg QD (9) Vitamin D deficiency: Code(s): E55.9 - Vitamin D deficiency, unspecified Category: Medical Plan: Continue OTC Vitamin D supplements daily (10) Allergic rhinitis: Code(s): J30.9 - Allergic rhinitis, unspecified Category: Medical Qualifiers: Allergic rhinitis trigger: unspecified Allergic rhinitis seasonality: unspecified Qualified Code(s): J30.9 - Allergic rhinitis, unspecified Plan: Continue Fluticasone 50 mcg nasal spray QD PRN and Cetirizine 10 mg QD PRN (11) Lumbar degenerative disc disease: Code(s): M51.36 - Other intervertebral disc degeneration, lumbar region Category: Medical Qualifiers: Disc-related pain type: discogenic back pain only Qualified Code(s): M51.360 - Other intervertebral disc degeneration, lumbar region with discogenic back pain only Plan: Reinforced activity and weight-lifting restrictions to minimize aggravating her low back pain Repeat lumbar spine x-rays done in April 2021 revealed (+) chronic changes of lumbar spine DDD She was sent for lumbar spine MRI for further evaluation but patient reportedly missed her appt and she has not rescheduled Continue Ibuprofen 800 mg TID with food PRN for pain and Tramadol 50 mg 1 to 2 times a day ONLY as needed for SEVERE pain (12) Spondylosis of cervical spine without myelopathy: Code(s): M47.812 - Spondylosis without myelopathy or radiculopathy, cervical region Category: Medical Plan: She was seen by pain management last year and they recommended physical therapy and other modalities to help with her neck pain; recommended NO opioids as they do not think patient's current symptoms warrant Tx with long-term opioids She has been reportedly advised to follow up with them only on an as needed basis (13) Pain of right scapula: Code(s): M89.8X1 - Other specified disorders of bone, shoulder Category: Medical Plan: Suspect that patient has some tendinitis or bursitis (possibly of the right rotator cuff) in her shoulder currently Will send her for x-rays of the right shoulder CHERYL for further evaluation (14) Radicular pain in right arm: Code(s): M79.2 - Neuralgia and neuritis, unspecified Category: Medical Plan: Have advised patient that if her right shoulder x-rays come out normal, will consider referring her to physical therapy for further management Can consider EMG and NCV for further evaluation but only if physical therapy does not help Advised that her current symptoms appear consistent with some type of impingement syndrome, likely from somewhere in her right shoulder area (15) Insomnia: Code(s): G47.00 - Insomnia, unspecified Category: Medical Qualifiers: Insomnia type: unspecified Qualified Code(s): G47.00 - Insomnia, unspecified Plan: Sleep hygiene reinforced Continue Amitriptyline 25 mg Q HS (16) Anxiety: Code(s): F41.9 - Anxiety disorder, unspecified Category: Medical Plan: Continue Alprazolam 1 mg TID PRN Follow up with psychiatry as scheduled (17) Obesity (BMI 30-39.9): Code(s): E66.9 - Obesity, unspecified Category: Medical Plan: Reinforced diet/exercise as tolerated/lose weight Plan Follow up in 3 months Orders: Orders XR shoulder RT min 2V Today M25.511 - Pain in right shoulder, M79.2 - Neuralgia and neuritis, unspecified, M89.8X1 - Other specified disorders of bone, shoulder Complete Blood Count Auto Diff 3 Months D64.9 - Anemia, unspecified Thyroid Stimulating Hormone 3 Months E03.9 - Hypothyroidism, unspecified UA CC w/rflx Micro + Cult 3 Months R30.0 - Dysuria Lipid Panel 3 Months E78.00 - Pure hypercholesterolemia, unspecified Comprehensive [place]. Panel Fast 3 Months E78.00 - Pure hypercholesterolemia, unspecified Hemoglobin A1c 3 Months E11.9 - Type 2 diabetes mellitus without complications Microalbumin, Random (w Creat) 3 Months E11.9 - Type 2 diabetes mellitus without complications Free T4 (Free Thyroxine) 3 Months E03.9 - Hypothyroidism, unspecified Vitamin B12 and Folate 3 Months E53.8 - Deficiency of other specified B group vitamins Vitamin D 25-OH Total 3 Months E55.9 - Vitamin D deficiency, unspecified Medications: Changed From rosuvastatin 5 mg PO DAILY 90 tabs 3RF E78.5 - Hyperlipidemia, unspecified To rosuvastatin 5 mg PO DAILY 90 days 90 tabs 3RF E78.5 - Hyperlipidemia, unspecified Refilled topiramate 100 mg PO BEDTIME 90 days 90 tabs 1RF G43.909 - Migraine, unspecified, not intractable, without status migrainosus levothyroxine 50 mcg PO DAILY 90 days 90 tabs 1RF E03.9 - Hypothyroidism, unspecified
--- OUTSIDE RECORDS SUMMARY | 2024-04-21 09:55 | XMS_ITS | Clinical Summary ---
Author Organization [employer] Address [address] [place] [address] Care Team Providers Care Ethyl Blender Name Role Phone Unavailable Primary Care Provider [...] 5 Years) and At-Risk Patients (6 to 49) Years) Aged Out 06/27/2010 No longer eligible [...] patient's age to complete this topic Insurance [facility]
--- OUTSIDE RECORDS SUMMARY | 2024-04-21 09:55 | XMS_ITS | Clinical Summary ---
Author Organization 175 [facility] Address 175 [place] [address] Phone Care Team Providers Care Screen Tender Name Role Phone Juve Crawford MD Primary [...] AM EST Office Visit Bariatric Surgery - [address] [phone] Lluvia Rosales MD Class 1 obesity due to excess calories with body mass index (BMI) of 34.0 to 34.9 in adult, unspecified whether serious comorbidity present (Primary Dx); Postgastrectomy malabsorption from Last 3 Months Surgical History Surgery Date Site/Laterality Comments OTHER SURGICAL HISTORY PROCEDURE: [place] LAPS GSTR RSTCV PX W/BYP KAYLAH-EN-Y LIMB [...] AM EDT Office Visit Bariatric Surgery - [place] 175 [facility] [address] [place] [phone] Lluvia Rosales MD 175 [facility] [address] [place] [address] Health Maintenance Due Date Last Done Comments [...] LAB CHEMISTRY METHOD 03/26/2024 3:36 PM EST [facility] TIBC 396 250 - 450 mcg/dL LAB CHEMISTRY METHOD 03/26/2024 3:36 PM EST [facility] Iron Saturation 27 15 - 50 % LAB CHEMISTRY METHOD 03/26/2024 3:36 PM EST [facility] Blood Venous blood specimen / Unknown Venipuncture / Unknown 03/26/2024 10:23 AM EST 03/26/2024 10:23 AM EST Lluvia Rosales MD LAB BLOOD ORDERABLES [facility]) [facility] [address] [place] [address], * Copper, serum (03/26/2024 10:23 AM EST) Copper 1229 810 - 1990 ug/L 03/31/2024 6:32 AM EST [facility] Comment: Copper values may be elevated to twice the normal levels in . Elevated results may be due to sample collected in a non-certified trace element-free tube. This test was developed and the performance characteristics determined by [facility]. It has not been cleared or approved by the FDA. The laboratory is regulated under CLIA as qualified to perform high-complexity testing. This test is used for patient testing purposes. It should not be regarded as investigational or for research. Test performed at [facility], [address] [place], [place] ??[address] ? [phone] Supriya Rouse MD, PhD - Motorboat Operator Blood Venous blood specimen / Unknown Venipuncture / Unknown 03/26/2024 10:23 AM EST 03/26/2024 10:23 AM EST Lluvia Rosales MD LAB BLOOD ORDERABLES Performing Organization Address [facility]/ZIP Co de Phone Number [facility] [address] [place] [address] * (ABNORMAL) Zinc (03/26/2024 10:23 AM EST) Zinc 57(L) 60 - 130 ug/dL 03/30/2024 9:43 AM EST [facility] Comment: Elevated results may be due to sample collected in a non-certified trace element-free tube. This test was developed and the performance characteristics determined by [facility]. It has not been cleared or approved by the FDA. The laboratory is regulated under CLIA as qualified to perform high-complexity testing. This test is used for patient testing purposes. It should not be regarded as investigational or for research. Test performed at [facility], [address] [place], [place] ??[address] ? [phone] Supriya Rouse MD, PhD - Motorboat Operator Blood Venous blood specimen / Unknown Venipuncture / Unknown 03/26/2024 10:23 AM EST 03/26/2024 10:23 AM EST Lluvia Rosales MD LAB BLOOD ORDERABLES [facility] [address] [place] [address] * Vitamin A (03/26/2024 10:23 AM EST) Vitamin A 41 38 - 106 ug/dL 03/31/2024 6:40 AM EST [facility] Comment: This test was developed and the performance characteristics determined by [facility]. It has not been cleared or approved by the FDA. The laboratory is regulated under CLIA as qualified to perform high-complexity testing. This test is used for patient testing purposes. It should not be regarded as investigational or for research. Test performed at [facility], [address] [place], [place] ??[address] ? [phone] Supriya Rouse MD, PhD - Motorboat Operator Blood Venous blood specimen / Unknown Venipuncture / Unknown 03/26/2024 10:23 AM EST 03/26/2024 10:23 AM EST Lluvia Rosales MD LAB BLOOD ORDERABLES [facility] [address] [place] [address] * Selenium serum (03/26/2024 10:23 AM EST) Selenium 149 63 - 160 mcg/L 04/05/2024 11:38 PM EST [facility] Comment: (Note) This test was developed and its analytical performance characteristics have been determined by [employer]. It has not been cleared or approved by the FDA. This assay has been validated pursuant to the CLIA regulations and is used for clinical purposes. [facility] [address] [address],[address] [facility] [address] Chan Francois MD, PhD Test Performed at: [facility] [address] [facility] [address], [address] [place], [place] ??[phone] ? Alec Francois MD, PhD Blood Venous blood specimen / Unknown Venipuncture / Unknown 03/26/2024 10:23 AM EST 03/26/2024 10:23 AM EST Lluvia Rosales MD LAB BLOOD ORDERABLES [facility] [address] [place] [address] * Vitamin D 25 hydroxy (03/26/2024 10:23 AM EST) Pathologist [facility] Vit D, 25-Hydroxy 31.6 30.0 - 80.0 ng/mL LAB CHEMISTRY METHOD 03/26/2024 3:04 PM EST [facility] Blood Venous blood specimen / Unknown Venipuncture / Unknown 03/26/2024 10:23 AM EST 03/26/2024 10:23 AM EST Lluvia Rosales MD LAB BLOOD ORDERABLES Performing Organization Address [facility] Co de Phone Number [facility] [address] [place] [address], * Vitamin B1 (03/26/2024 10:23 AM EST) [facility] Vitamin B1 Whole Blood 75 38 - 122 ug/L 03/31/2024 9:38 AM EST [facility] Comment: This test was developed and the performance characteristics determined by [facility]. It has not been cleared or approved by the FDA. The laboratory is regulated under CLIA as qualified to perform high-complexity testing. This test is used for patient testing purposes. It should not be regarded as investigational or for research. Test performed at [facility], [address] , [place], [place] ??[address] ? [phone] Supriya Rouse MD, PhD - Motorboat Operator Blood Venous blood specimen / Unknown Venipuncture / Unknown 03/26/2024 10:23 AM EST 03/26/2024 10:23 AM EST Lluvia Rosales MD LAB BLOOD ORDERABLES Performing Organization Address City/[facility]/ZIP Co de Phone Number [facility] [address] [place] [address] * Folate (03/26/2024 10:23 AM EST) Folate 15.5 2.8 - 17.0 ng/ml LAB CHEMISTRY METHOD 03/26/2024 3:36 PM EST [facility] Blood Venous blood specimen / Unknown Venipuncture / Unknown 03/26/2024 10:23 AM EST 03/26/2024 10:23 AM EST Lluvia Rosales MD LAB BLOOD ORDERABLES [facility] [address] [place] [address], * (ABNORMAL) Vitamin B12 (03/26/2024 10:23 AM EST) Pathologist [facility] Vitamin B-12 232(L) 250 - 900 pcg/mL LAB CHEMISTRY METHOD 03/26/2024 3:36 PM EST [facility] Blood Venous blood specimen / Unknown Venipuncture / Unknown 03/26/2024 10:23 AM EST 03/26/2024 10:23 AM EST Lluvia Rosales MD LAB BLOOD ORDERABLES [facility] [address] [place] [address], [place] [phone] * Calcium (03/26/2024 10:23 AM EST) Calcium 9.1 8.5 - 10.5 mg/dL LAB CHEMISTRY METHOD 03/26/2024 3:36 PM EST [facility] Blood Venous blood specimen / Unknown Venipuncture / Unknown 03/26/2024 10:23 AM EST 03/26/2024 10:23 AM EST Lluvia Rosales MD LAB BLOOD ORDERABLES Performing Organization Address City/[facility]/ZIP Co de Phone Number [facility] [address] [place] [address], [place] [phone] * Albumin (03/26/2024 10:23 AM EST) Albumin 3.7 3.2 - 5.0 g/dL LAB CHEMISTRY METHOD 03/26/2024 2:57 PM EST [facility] Blood Venous blood specimen / Unknown Venipuncture / Unknown 03/26/2024 10:23 AM EST 03/26/2024 10:23 AM EST Lluvia Rosales MD LAB BLOOD ORDERABLES Performing Organization Address [facility] Co de Phone Number [facility] [address] [place] [address], [place] [phone] from Last 3 Months Care Teams Screen Tender Relationship Specialty Start Date End Date Juve Crawford MD [address] [place] [address] Dr [address] [place] PCP - General Internal Medicine 10/13/20
--- OUTSIDE RECORDS SUMMARY | 2024-04-21 09:55 | XMS_ITS | Encounter Summary ---
Author Organization [employer] Address [address] [place] [address] Care Team Providers Care Industrial Engineering Technician Name Role Phone Juve Crawford MD Primary Care Provider [phone] Reason for Visit * Reason Comments Follow-up 1 year follow up Encounter Details Date Type Department Care Team (Latest Contact Info) Description 03/26/2024 10:00 AM EST Office Visit Bariatric Surgery - [place] [address] [place] [phone] Lluvia Rosales MD 175 [facility] [address] [place] [address] Class 1 obesity due to excess calories [...] Procedure Laterality Date OTHER SURGICAL HISTORY PROCEDURE: [place] LAPS GSTR RSTCV PX W/BYP KAYLAH-EN-Y LIMB [...] AM EDT Office Visit Bariatric Surgery - [place] [address] [phone] Lluvia Rosales MD [address] [address] documented as of this encounter Results * (ABNORMAL) Zinc (03/26/2024 10:23 AM EST) Zinc 57(L) 60 - 130 ug/dL 03/30/2024 9:43 AM EST [facility] Comment: Elevated results may be due to sample collected in a non-certified trace element-free tube. This test was developed and the performance characteristics determined by [facility]. It has not been cleared or approved by the FDA. The laboratory is regulated under CLIA as qualified to perform high-complexity testing. This test is used for patient testing purposes. It should not be regarded as investigational or for research. Test performed at [facility], [address] [place], [place] ??[address] ? [phone] Supriya Rouse MD, PhD - Handicrafts Teacher Blood Venous blood specimen / Unknown Venipuncture / Unknown 03/26/2024 10:23 AM EST 03/26/2024 10:23 AM EST Lluvia Rosales MD LAB BLOOD ORDERABLES Performing Organization Address City/[facility]/ZIP Co de Phone Number [facility] [address] [place] [address] * Vitamin D 25 hydroxy (03/26/2024 10:23 AM EST) Vit D, 25-Hydroxy 31.6 30.0 - 80.0 ng/mL LAB CHEMISTRY METHOD 03/26/2024 3:04 PM EST [facility] Blood Venous blood specimen / Unknown Venipuncture / Unknown 03/26/2024 10:23 AM EST 03/26/2024 10:23 AM EST Lluvia Rosales MD LAB BLOOD ORDERABLES [facility] [address] [place] [address], * (ABNORMAL) Vitamin B12 (03/26/2024 10:23 AM EST) Vitamin B-12 232(L) 250 - 900 pcg/mL LAB CHEMISTRY METHOD 03/26/2024 3:36 PM EST [facility] Blood Venous blood specimen / Unknown Venipuncture / Unknown 03/26/2024 10:23 AM EST 03/26/2024 10:23 AM EST Lluvia Rosales MD LAB BLOOD ORDERABLES [facility] [address] [place] [address], * Vitamin B1 (03/26/2024 10:23 AM EST) Vitamin B1 Whole Blood 75 38 - 122 ug/L 03/31/2024 9:38 AM EST [facility] Comment: This test was developed and the performance characteristics determined by [facility]. It has not been cleared or approved by the FDA. The laboratory is regulated under CLIA as qualified to perform high-complexity testing. This test is used for patient testing purposes. It should not be regarded as investigational or for research. Test performed at [facility], [address] [place], [place] ??[address] ? [phone] Supriya Rouse MD, PhD - Handicrafts Teacher Blood Venous blood specimen / Unknown Venipuncture / Unknown 03/26/2024 10:23 AM EST 03/26/2024 10:23 AM EST Lluvia Rosales MD LAB BLOOD ORDERABLES [facility] [address] [place] [address] * Vitamin A (03/26/2024 10:23 AM EST) Vitamin A 41 38 - 106 ug/dL 03/31/2024 6:40 AM EST [facility] Comment: This test was developed and the performance characteristics determined by [facility]. It has not been cleared or approved by the FDA. The laboratory is regulated under CLIA as qualified to perform high-complexity testing. This test is used for patient testing purposes. It should not be regarded as investigational or for research. Test performed at [facility], [address] , [place], [place] ??[address] ? [phone] Supriya Rouse MD, PhD - Handicrafts Teacher Blood Venous blood specimen / Unknown Venipuncture / Unknown 03/26/2024 10:23 AM EST 03/26/2024 10:23 AM EST Lluvia Rosales MD LAB BLOOD ORDERABLES Performing Organization Address City/[facility]/ZIP Co de Phone Number [facility] [address] [place] [address] * Selenium serum (03/26/2024 10:23 AM EST) Selenium 149 63 - 160 mcg/L 04/05/2024 11:38 PM EST [facility] Comment: (Note) This test was developed and its analytical performance characteristics have been determined by [employer]. It has not been cleared or approved by the FDA. This assay has been validated pursuant to the CLIA regulations and is used for clinical purposes. [facility] [address] [address],[address] [facility] [address] Chan Francois MD, PhD Test Performed at: [facility] [address] [place] [address], [address] [place] [address] ??[phone] ? Alec Francois MD, PhD Blood Venous blood specimen / Unknown Venipuncture / Unknown 03/26/2024 10:23 AM EST 03/26/2024 10:23 AM EST Lluvia Rosales MD LAB BLOOD ORDERABLES [facility] [address] [place] [address] * Iron and TIBC (03/26/2024 10:23 AM EST) Iron 106 40 - 150 mcg/dL LAB CHEMISTRY METHOD 03/26/2024 3:36 PM EST [facility] TIBC 396 250 - 450 mcg/dL LAB CHEMISTRY METHOD 03/26/2024 3:36 PM EST [facility] Iron Saturation 27 15 - 50 % LAB CHEMISTRY METHOD 03/26/2024 3:36 PM EST [facility] Blood Venous blood specimen / Unknown Venipuncture / Unknown 03/26/2024 10:23 AM EST 03/26/2024 10:23 AM EST Lluvia Rosales MD LAB BLOOD ORDERABLES Performing Organization Address City/[facility]/ZIP Co de Phone Number [facility] [address] [place] [address], [place] [phone] * Folate (03/26/2024 10:23 AM EST) Folate 15.5 2.8 - 17.0 ng/ml LAB CHEMISTRY METHOD 03/26/2024 3:36 PM EST [facility] Blood Venous blood specimen / Unknown Venipuncture / Unknown 03/26/2024 10:23 AM EST 03/26/2024 10:23 AM EST Lluvia Rosales MD LAB BLOOD ORDERABLES Performing Organization Address City/[facility]/ZIP Co de Phone Number [facility] [address] [place] [address], [place] [phone] * Copper, serum (03/26/2024 10:23 AM EST) Copper 1229 810 - 1990 ug/L 03/31/2024 6:32 AM EST [facility] Comment: Copper values may be elevated to twice the normal levels in . Elevated results may be due to sample collected in a non-certified trace element-free tube. This test was developed and the performance characteristics determined by [facility]. It has not been cleared or approved by the FDA. The laboratory is regulated under CLIA as qualified to perform high-complexity testing. This test is used for patient testing purposes. It should not be regarded as investigational or for research. Test performed at [facility], [address] , [place], [place] ??[address] ? [phone] Supriya Rouse MD, PhD - Handicrafts Teacher Blood Venous blood specimen / Unknown Venipuncture / Unknown 03/26/2024 10:23 AM EST 03/26/2024 10:23 AM EST Lluvia Rosales MD LAB BLOOD ORDERABLES [facility] [address] [place] [address] * Calcium (03/26/2024 10:23 AM EST) Calcium 9.1 8.5 - 10.5 mg/dL LAB CHEMISTRY METHOD 03/26/2024 3:36 PM EST [facility] Blood Venous blood specimen / Unknown Venipuncture / Unknown 03/26/2024 10:23 AM EST 03/26/2024 10:23 AM EST Lluvia Rosales MD LAB BLOOD ORDERABLES [facility] [address] [place] [address], [place] [phone] * Albumin (03/26/2024 10:23 AM EST) Albumin 3.7 3.2 - 5.0 g/dL LAB CHEMISTRY METHOD 03/26/2024 2:57 PM EST [facility] Blood Venous blood specimen / Unknown Venipuncture / Unknown 03/26/2024 10:23 AM EST 03/26/2024 10:23 AM EST Lluvia Rosales MD LAB BLOOD ORDERABLES Performing Organization Address City/[facility]/ZIP Co de Phone Number [facility] [address] [place] [address], [place] [phone] documented in this encounter Visit Diagnoses Diagnosis [...] 03/23/2024 added in this encounter Care Teams Industrial Engineering Technician Relationship Specialty Start Date End Date Juve Crawford MD [address] [place] [address] [address] [place] PCP - General Internal Medicine 10/13/20 documented as of this encounter
== END 2024-04-21 10:07 | disposition home or self-care (01) ==
PROVIDERS: PCP Internal Medicine; Visit Provider Internal Medicine
DX: E78.00 Pure hypercholesterolemia, unspecified (principal); E11.40 Type 2 diabetes mellitus with diabetic neuropathy, unspecified; E03.9 Hypothyroidism, unspecified; G43.909 Migraine, unspecified, not intractable, without status migrainosus; K59.04 Chronic idiopathic constipation; K21.9 Gastro-esophageal reflux disease without esophagitis; D64.9 Anemia, unspecified; E53.8 Deficiency of other specified B group vitamins; E55.9 Vitamin D deficiency, unspecified; J30.9 Allergic rhinitis, unspecified; M51.360 Other intervertebral disc degeneration, lumbar region with discogenic back pain only; M47.812 Spondylosis without myelopathy or radiculopathy, cervical region

== ENCOUNTER → 2024-04-21 10:25 | Outpatient (BNV) | payer MEDICARE, MEDICAID, SELFPAY | PROVIDERS: PCP Internal Medicine; Visit Provider Radiology Diagnostic Radiology | DX: M19.011 Primary osteoarthritis, right shoulder (principal) | CPT/HCPCS: 73030 ==

== ENCOUNTER → 2024-04-23 11:47 | Outpatient (BNVA) | payer MEDICARE, MEDICAID, SELFPAY | PROVIDERS: PCP Internal Medicine; Visit Provider Obstetrics & Gynecology | DX: N83.202 Unspecified ovarian cyst, left side (principal); N83.201 Unspecified ovarian cyst, right side | CPT/HCPCS: 99212 ==

== ENCOUNTER 2024-05-13 09:56 | Outpatient (REF) | payer MEDICARE, MEDICAID, SELFPAY ==
--- NOTE | ~2024-05-13 | CT_ITS ---
EXAMINATION: CT ABDOMEN WITHOUT THEN WITH IV CONTRAST HISTORY: N28.1 - Cyst of kidney, acquired COMPARISON: Correlation is made with a renal ultrasound dated 12/20/2022. TECHNIQUE: CT scan of the abdomen was performed before and after the intravenous administration of 85 mL Omnipaque 350. Coronal and sagittal reformatted images were generated and reviewed. Oral contrast material was not administered per department protocol. This CT exam was performed with one or more of the following dose reduction techniques: automated exposure control, adjustment of the mA and/or kV according to patient size, use of iterative reconstruction technique. DLP: 431 mGy-cm ABDOMEN: LOWER CHEST: The visualized lung bases are clear. There is no pleural effusion. CARDIOVASCULATURE: The heart is normal in size. There is no pericardial effusion. LIVER: The liver is normal in size and contour. No liver mass is identified. The hepatic and portal veins are patent. GALLBLADDER / BILE DUCTS: The gallbladder is surgically absent. There is no intra or extrahepatic biliary ductal dilatation. SPLEEN: The spleen is normal in size. No focal splenic lesion is identified. PANCREAS: The pancreas is unremarkable in appearance. ADRENAL GLANDS: Within normal limits. KIDNEYS/RETROPERITONEUM: There are 2 tiny nonobstructing calculi at the upper pole of the left kidney measuring up to 2 mm in size. No right renal calculi are seen. There is a partially duplicated right renal collecting system. There is no hydronephrosis. No renal masses are identified. LYMPH NODES: No abdominal or pelvic lymphadenopathy. VASCULATURE: The abdominal aorta is normal in caliber. MESENTERY/PERITONEUM: No free fluid. No masses. There is no free intraperitoneal gas. STOMACH: There are postsurgical changes involving the stomach. SMALL BOWEL: The surgical changes are noted involving the jejunum. The visualized small bowel is normal in caliber. COLON: The visualized portion of the colon is unremarkable. BONES / SOFT TISSUES: No suspicious bony or soft tissue abnormalities. CT/CT abdomen wo/w IV con IMPRESSION: Left nephrolithiasis as described without evidence of ureteral obstruction. No renal cyst is identified. Electronically signed by: Arthur Rucker MD 05/13/2024 01:19 PM [facility]
[2024-05-13] MEDS: iohexoL 350 MG/ML 100 ML INFUS..BTL IV (10:36)
--- OUTSIDE RECORDS SUMMARY | 2024-05-13 11:49 | XMS_ITS | Clinical Summary ---
Author Organization [employer] Address [address] [facility] [address]t [place] [address] Care Team Providers Care Edger Feeder Name Role Phone Unavailable Primary Care Provider [...] patient's age to complete this topic Insurance [facility] FULL
--- OUTSIDE RECORDS SUMMARY | 2024-05-13 11:49 | XMS_ITS | Clinical Summary ---
Author Organization 175 [facility] Address 175 [place] [address] Phone Care Team Providers Care Magnetic Resonance Imaging Director Name Role Phone Juve Crawford MD Primary Care Provider Allergies Active Allergy Reactions Criticality Noted Date Comments Lisinopril 07/23/2017 swelling in lips Metformin 07/23/2017 pain Sumatriptan 07/11/2020 Medications linaCLOtide (LINZESS) 290 mcg capsule Take by mouth. Activ e rosuvastatin (CRESTOR) 5 mg tablet Take 1 tablet (5 mg total) by mouth. Active topiramate (TOPAMAX) 100 mg tablet Take 1 tablet (100 mg total) by mouth. Active acarbose (PRECOSE) 100 mg tablet Take 1 tablet (100 mg total) by mouth 3 (three) times a day with meals. 5 Active ALPRAZolam (XANAX) 1 mg tablet Take 1 tablet (1 mg total) by mouth if needed. 4 Active Laxative, bisacodyl, 5 mg EC tablet Take 1 tablet (5 mg total) by mouth if needed. 4 Active cetirizine (ZyrTEC) 10 mg tablet Take 1 tablet (10 mg total) by mouth 1 (one) time each day. 4 Active cloNIDine (CATAPRES) 0.1 mg tablet Take 1 tablet (0.1 mg total) by mouth 2 (two) times a day. 4 Active dicyclomine (BENTYL) 20 mg tablet Take 0.5 tablets (10 mg total) by mouth if needed. 4 Active fluticasone propionate (FLONASE) 50 mcg/actuation nasal spray Administer 1 spray into each nostril 1 (one) time each day. 4 Active ibuprofen (ADVIL,MOTRIN) 800 mg tablet Take 1 tablet (800 mg total) by mouth if needed. 4 Active levothyroxine (SYNTHROID, LEVOTHROID) 50 mcg tablet Take 1 tablet (50 mcg total) by mouth 1 (one) time each day. 4 Active melatonin 5 mg tablet Take 1 tablet (5 mg total) by mouth at bedtime. 5 Active metoclopramide (REGLAN) 10 mg tablet Take 1 tablet (10 mg total) by mouth if needed. 4 Active simethicone (MYLICON,GAS-X) 180 mg capsule Take 1 capsule (180 mg total) by mouth 1 (one) time. 4 Active traMADoL (ULTRAM) 50 mg tablet Take 1 tablet (50 mg total) by mouth if needed. 4 Active cyanocobalamin, vitamin B-12, 1,000 mcg tablet, sublingualIndicat ions:Postgastrect pratima malabsorption Place 1 tablet under the tongue 1 (one) time each day. 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 Encounters Date Type Department Care Team Description 03/26/2024 10:00 AM EST Office Visit Bariatric Surgery - [address] [address] Lluvia Rosales MD Class 1 obesity due to excess calories with body mass index (BMI) of 34.0 to 34.9 in adult, unspecified whether serious comorbidity present (Primary Dx); Postgastrectomy malabsorption from Last 3 Months Surgical History Surgery Date Site/Laterality Comments OTHER SURGICAL HISTORY PROCEDURE: [place] LAPS GSTR RSTCV PX W/BYP KAYLAH-EN-Y LIMB [...] drink = 0.6 oz pur e alcohol) Comments Unknown Sex and Gender Information Value Date Recorded Sex Assigned at Not on file Legal Sex Female 10:22 AM EST Gender Identity Not on file Sexual Orientation Not on file Obstetrics History Last Filed [...] AM EDT Office Visit Bariatric Surgery - [place] [address] [facility] [address] [place] [address] Lluvia Rosales MD 175 [facility] [address] [place] [address] Health Maintenance Due Date Last Done Comments [...] patient's age to complete this topic Meningococcal B Vacine Aged Out No lo nger eligible based on patient's age to complete [...] LAB CHEMISTRY METHOD 03/26/2024 3:36 PM EST [facility] TIBC 396 250 - 450 mcg/dL LAB CHEMISTRY METHOD 03/26/2024 3:36 PM EST [facility] Iron Saturation 27 15 - 50 % LAB CHEMISTRY METHOD 03/26/2024 3:36 PM EST [facility] Blood Venous blood specimen / Unknown Venipuncture / Unknown 03/26/2024 10:23 AM EST 03/26/2024 10:23 AM EST us Lluvia Rosales MD LAB BLOOD ORDERABLES Final R esult [facility] [address] [place] [address], [place] [phone] * Copper, serum (03/26/2024 10:23 AM EST) Copper 1229 810 - 1990 ug/L 03/31/2024 6:32 AM EST [facility] Comment: Copper values may be elevated to twice the normal levels in . Elevated results may be due to sample collected in a non-certified trace element-free tube. This test was developed and the performance characteristics determined by [facility]. It has not been cleared or approved by the FDA. The laboratory is regulated under CLIA as qualified to perform high-complexity testing. This test is used for patient testing purposes. It should not be regarded as investigational or for research. Test performed at [facility], [address] [place], [place] ??[address] ? [phone] Supriya Rouse MD, PhD - Private Banker Blood Venous blood specimen / Unknown Venipuncture / Unknown 03/26/2024 10:23 AM EST 03/26/2024 10:23 AM EST Lluvia Rosales MD LAB BLOOD ORDERABLES Final R esult [facility] [address] [place] [address] * (ABNORMAL) Zinc (03/26/2024 10:23 AM EST) Zinc 57(L) 60 - 130 ug/dL 03/30/2024 9:43 AM EST [facility] Comment: Elevated results may be due to sample collected in a non-certified trace element-free tube. This test was developed and the performance characteristics determined by [facility]. It has not been cleared or approved by the FDA. The laboratory is regulated under CLIA as qualified to perform high-complexity testing. This test is used for patient testing purposes. It should not be regarded as investigational or for research. Test performed at [facility], [address] [place], [place] ??[address] ? [phone] Supriya Rouse MD, PhD - Private Banker Blood Venous blood specimen / Unknown Venipuncture / Unknown 03/26/2024 10:23 AM EST 03/26/2024 10:23 AM EST Lluvia Rosales MD LAB BLOOD ORDERABLES Final R esult [facility] [address] [place] [address] * Vitamin A (03/26/2024 10:23 AM EST) Vitamin A 41 38 - 106 ug/dL 03/31/2024 6:40 AM EST [facility] Comment: This test was developed and the performance characteristics determined by [facility]. It has not been cleared or approved by the FDA. The laboratory is regulated under CLIA as qualified to perform high-complexity testing. This test is used for patient testing purposes. It should not be regarded as investigational or for research. Test performed at [facility], [address] [place], [place] ??[address] ? [phone] Supriya Rouse MD, PhD - Private Banker Blood Venous blood specimen / Unknown Venipuncture / Unknown 03/26/2024 10:23 AM EST 03/26/2024 10:23 AM EST Lluvia Rosales MD LAB BLOOD ORDERABLES Final R esult Performing Organization Address [facility] Co de Phone Number [facility] [address] [place] [address] * Selenium serum (03/26/2024 10:23 AM EST) Selenium 149 63 - 160 mcg/L 04/05/2024 11:38 PM EST [facility] Comment: (Note) This test was developed and its analytical performance characteristics have been determined by [facility]. It has not been cleared or approved by the FDA. This assay has been validated pursuant to the CLIA regulations and is used for clinical purposes. [facility] [address] [facility] [address] [facility] [address] Chan Francois MD, PhD Test Performed at: [facility] [address] [facility] [address], [address] [place], [place] ??[phone] ? Alec Francois MD, PhD Blood Venous blood specimen / Unknown Venipuncture / Unknown 03/26/2024 10:23 AM EST 03/26/2024 10:23 AM EST us Lluvia Rosales MD LAB BLOOD ORDERABLES Final R esult [facility] [address] [place] [address] * Vitamin D 25 hydroxy (03/26/2024 10:23 AM EST) Vit D, 25-Hydroxy 31.6 30.0 - 80.0 ng/mL LAB CHEMISTRY METHOD 03/26/2024 3:04 PM EST [facility] Blood Venous blood specimen / Unknown Venipuncture / Unknown 03/26/2024 10:23 AM EST 03/26/2024 10:23 AM EST Lluvia Rosales MD LAB BLOOD ORDERABLES Final R esult [facility] [address] [place] [address], * Vitamin B1 (03/26/2024 10:23 AM EST) [facility] Vitamin B1 Whole Blood 75 38 - 122 ug/L 03/31/2024 9:38 AM EST [facility] Comment: This test was developed and the performance characteristics determined by [facility]. It has not been cleared or approved by the FDA. The laboratory is regulated under CLIA as qualified to perform high-complexity testing. This test is used for patient testing purposes. It should not be regarded as investigational or for research. Test performed at [facility], [address] , [place], [place] ??[address] ? [phone] Supriya Rouse MD, PhD - Private Banker Blood Venous blood specimen / Unknown Venipuncture / Unknown 03/26/2024 10:23 AM EST 03/26/2024 10:23 AM EST us Lluvia Rosales MD LAB BLOOD ORDERABLES Final R esult [facility] [address] [place] [address] * Folate (03/26/2024 10:23 AM EST) [facility] Folate 15.5 2.8 - 17.0 ng/ml LAB CHEMISTRY METHOD 03/26/2024 3:36 PM EST [facility] Blood Venous blood specimen / Unknown Venipuncture / Unknown 03/26/2024 10:23 AM EST 03/26/2024 10:23 AM EST us Lluvia Rosales MD LAB BLOOD ORDERABLES Final R esult Performing Organization Address [facility] Co de Phone Number [facility] [address] [place] [address], [place] [phone] * (ABNORMAL) Vitamin B12 (03/26/2024 10:23 AM EST) [facility] Vitamin B-12 232(L) 250 - 900 pcg/mL LAB CHEMISTRY METHOD 03/26/2024 3:36 PM EST [facility] Blood Venous blood specimen / Unknown Venipuncture / Unknown 03/26/2024 10:23 AM EST 03/26/2024 10:23 AM EST us Lluvia Rosales MD LAB BLOOD ORDERABLES Final R esult Performing Organization Address City/[facility]/ZIP Co de Phone Number [facility] [address] [place] [address], [place] [phone] * Calcium (03/26/2024 10:23 AM EST) [facility] Calcium 9.1 8.5 - 10.5 mg/dL LAB CHEMISTRY METHOD 03/26/2024 3:36 PM EST [facility] Blood Venous blood specimen / Unknown Venipuncture / Unknown 03/26/2024 10:23 AM EST 03/26/2024 10:23 AM EST us Lluvia Rosales MD LAB BLOOD ORDERABLES Final R esult [facility] [address] [place] [address], [place] [phone] * Albumin (03/26/2024 10:23 AM EST) Albumin 3.7 3.2 - 5.0 g/dL LAB CHEMISTRY METHOD 03/26/2024 2:57 PM EST [facility] Blood Venous blood specimen / Unknown Venipuncture / Unknown 03/26/2024 10:23 AM EST 03/26/2024 10:23 AM EST us Lluvia Rosales MD LAB BLOOD ORDERABLES Final R esult [facility] [address] [place] [address], [place] [phone] from Last 3 Months Insurance MEDICAID - [place] MEDICARE Care Teams Magnetic Resonance Imaging Director Relationship Specialty Start Date End Date Juve Crawford MD [address] [place] [address] Dr [address] EBONI Byers PCP - General Internal Medicine 10/13/20
== END 2024-05-13 09:57 | disposition home or self-care (01) ==
LOC: HO.CT 09:56
PROVIDERS: PCP Internal Medicine; Visit Provider Urology
DX: N28.1 Cyst of kidney, acquired (principal)
CPT/HCPCS: 74170; Q9967

== ENCOUNTER → 2024-05-13 09:57 | Outpatient (BNV) | payer MEDICARE, MEDICAID, SELFPAY | PROVIDERS: PCP Internal Medicine; Visit Provider Radiology Diagnostic Radiology | DX: N28.1 Cyst of kidney, acquired (principal) | CPT/HCPCS: 74170 ==

== ENCOUNTER 2024-06-04 10:27 | Outpatient (REF) | payer MEDICARE, MEDICAID, SELFPAY ==
--- NOTE | ~2024-06-04 | MM_ITS ---
EXAMINATION: MM DIAGNOSTIC DIGITAL BREAST TOMOSYNTHESIS, BILATERAL CLINICAL INFORMATION: Two-year follow-up for asymmetry in the medial left breast on CC view. No prior sonographic correlate was seen. COMPARISON: Mammography: Comparison is made with relevant prior exams. TECHNIQUE: Digital breast mammography with tomosynthesis is performed in both the craniocaudal and mediolateral oblique views along with computer-aided detection (CAD). FINDINGS: There are scattered areas of fibroglandular density (ACR BI-RADS breast composition Category b). The previously seen asymmetry in the medial left breast on CC view is not significantly changed from priors dating back for 2 years April 2022 and therefore benign. There are no significant masses, abnormal calcifications, or other abnormalities. Results are provided to the patient at time of visit by the technologist. MM/MM tomosynthesis diagnostic BI IMPRESSION: Right: Negative. Left: Benign. ASSESSMENT: BI-RADS BI-RADS 2 - Benign Findings RECOMMENDATION: 1 year F/U This patient's information was entered into a reminder system with a target due date for their next mammogram. Electronically signed by: Maddie Monahan DO 06/04/2024 11:17 AM EDT
--- OUTSIDE RECORDS SUMMARY | 2024-06-04 11:58 | XMS_ITS | Clinical Summary ---
Author Organization 175 [facility] Address [address] [place] [address] Phone Care Team Providers Care Aircraft Accessories Mechanic Name Role Phone Juve Crawford MD Primary [...] AM EST Office Visit Bariatric Surgery - [address] [address] Lluvia Rosales MD Class 1 obesity due to excess calories with body mass index (BMI) of 34.0 to 34.9 in adult, unspecified whether serious comorbidity present (Primary Dx); Postgastrectomy malabsorption from Last 3 Months Surgical History Surgery Date Site/Laterality Comments OTHER SURGICAL HISTORY PROCEDURE: [place] LAPS GSTR RSTCV PX W/BYP KAYLAH-EN-Y LIMB [...] AM EDT Office Visit Bariatric Surgery - [place] [address] [facility] [address] [place] [address] Lluvia Rosales MD 175 [facility] [address] [place] [address] Health Maintenance Due Date Last Done Comments [...] LAB CHEMISTRY METHOD 03/26/2024 3:36 PM EST [facility] TIBC 396 250 - 450 mcg/dL LAB CHEMISTRY METHOD 03/26/2024 3:36 PM EST [facility] Iron Saturation 27 15 - 50 % LAB CHEMISTRY METHOD 03/26/2024 3:36 PM EST [facility] Blood Venous blood specimen / Unknown Venipuncture / Unknown 03/26/2024 10:23 AM EST 03/26/2024 10:23 AM EST us Lluvia Rosales MD LAB BLOOD ORDERABLES Final R esult [facility] [address] [place] [address], [place] [phone] * Copper, serum (03/26/2024 10:23 AM EST) Copper 1229 810 - 1990 ug/L 03/31/2024 6:32 AM EST [facility] Comment: Copper values may be elevated to twice the normal levels in . Elevated results may be due to sample collected in a non-certified trace element-free tube. This test was developed and the performance characteristics determined by [facility]. It has not been cleared or approved by the FDA. The laboratory is regulated under CLIA as qualified to perform high-complexity testing. This test is used for patient testing purposes. It should not be regarded as investigational or for research. Test performed at [facility], [address] [place], [place] ??[address] ? [phone] Supriya Rouse MD, PhD - Instrument And Control Technician Blood Venous blood specimen / Unknown Venipuncture / Unknown 03/26/2024 10:23 AM EST 03/26/2024 10:23 AM EST Lluvia Rosales MD LAB BLOOD ORDERABLES Final R esult [facility] [address] [place] [address] * (ABNORMAL) Zinc (03/26/2024 10:23 AM EST) Zinc 57(L) 60 - 130 ug/dL 03/30/2024 9:43 AM EST [facility] Comment: Elevated results may be due to sample collected in a non-certified trace element-free tube. This test was developed and the performance characteristics determined by [facility]. It has not been cleared or approved by the FDA. The laboratory is regulated under CLIA as qualified to perform high-complexity testing. This test is used for patient testing purposes. It should not be regarded as investigational or for research. Test performed at [facility], [address] [place], [place] ??[address] ? [phone] Supriya Rouse MD, PhD - Instrument And Control Technician Blood Venous blood specimen / Unknown Venipuncture / Unknown 03/26/2024 10:23 AM EST 03/26/2024 10:23 AM EST Lluvia Rosales MD LAB BLOOD ORDERABLES Final R esult [facility] [address] [place] [address] * Vitamin A (03/26/2024 10:23 AM EST) Vitamin A 41 38 - 106 ug/dL 03/31/2024 6:40 AM EST [facility] Comment: This test was developed and the performance characteristics determined by [facility]. It has not been cleared or approved by the FDA. The laboratory is regulated under CLIA as qualified to perform high-complexity testing. This test is used for patient testing purposes. It should not be regarded as investigational or for research. Test performed at [facility], [address] [place], [place] ??[address] ? [phone] Supriya Rouse MD, PhD - Instrument And Control Technician Blood Venous blood specimen / Unknown Venipuncture / Unknown 03/26/2024 10:23 AM EST 03/26/2024 10:23 AM EST Lluvia Rosales MD LAB BLOOD ORDERABLES Final R esult Performing Organization Address [facility] Co de Phone Number [facility] [address] [place] [address] * Selenium serum (03/26/2024 10:23 AM EST) Selenium 149 63 - 160 mcg/L 04/05/2024 11:38 PM EST [facility] Comment: (Note) This test was developed and its analytical performance characteristics have been determined by [email or web address]. It has not been cleared or approved by the FDA. This assay has been validated pursuant to the CLIA regulations and is used for clinical purposes. [facility] [address] [facility] [address] [facility] [address] [facility] [address] Chan Francois MD, PhD Test Performed at: [facility] [address] [facility] [address], [address] [place], [place] ??[address] ? Alec Francois MD, PhD Blood Venous blood specimen / Unknown Venipuncture / Unknown 03/26/2024 10:23 AM EST 03/26/2024 10:23 AM EST us Lluvia Rosales MD LAB BLOOD ORDERABLES Final R esult [facility] [address] [place] [address] * Vitamin D 25 hydroxy (03/26/2024 10:23 AM EST) Vit D, 25-Hydroxy 31.6 30.0 - 80.0 ng/mL LAB CHEMISTRY METHOD 03/26/2024 3:04 PM EST [facility] Blood Venous blood specimen / Unknown Venipuncture / Unknown 03/26/2024 10:23 AM EST 03/26/2024 10:23 AM EST Lluvia Rosales MD LAB BLOOD ORDERABLES Final R esult [facility] [address] [place] [address], * Vitamin B1 (03/26/2024 10:23 AM EST) [facility] Vitamin B1 Whole Blood 75 38 - 122 ug/L 03/31/2024 9:38 AM EST [facility] Comment: This test was developed and the performance characteristics determined by [facility]. It has not been cleared or approved by the FDA. The laboratory is regulated under CLIA as qualified to perform high-complexity testing. This test is used for patient testing purposes. It should not be regarded as investigational or for research. Test performed at [facility], [address] , [place], [place] ??[address] ? [phone] Supriya Rouse MD, PhD - Instrument And Control Technician Blood Venous blood specimen / Unknown Venipuncture / Unknown 03/26/2024 10:23 AM EST 03/26/2024 10:23 AM EST us Lluvia Rosales MD LAB BLOOD ORDERABLES Final R esult [facility] [address] [place] [address] * Folate (03/26/2024 10:23 AM EST) [facility] Folate 15.5 2.8 - 17.0 ng/ml LAB CHEMISTRY METHOD 03/26/2024 3:36 PM EST [facility] Blood Venous blood specimen / Unknown Venipuncture / Unknown 03/26/2024 10:23 AM EST 03/26/2024 10:23 AM EST us Lluvia Rosales MD LAB BLOOD ORDERABLES Final R esult Performing Organization Address [facility] Co de Phone Number [facility] [address] [place] [address], [place] [phone] * (ABNORMAL) Vitamin B12 (03/26/2024 10:23 AM EST) [facility] Vitamin B-12 232(L) 250 - 900 pcg/mL LAB CHEMISTRY METHOD 03/26/2024 3:36 PM EST [facility] Blood Venous blood specimen / Unknown Venipuncture / Unknown 03/26/2024 10:23 AM EST 03/26/2024 10:23 AM EST us Lluvia Rosales MD LAB BLOOD ORDERABLES Final R esult Performing Organization Address City/[facility]/ZIP Co de Phone Number [facility] [address] [place] [address], [place] [phone] * Calcium (03/26/2024 10:23 AM EST) [facility] Calcium 9.1 8.5 - 10.5 mg/dL LAB CHEMISTRY METHOD 03/26/2024 3:36 PM EST [facility] Blood Venous blood specimen / Unknown Venipuncture / Unknown 03/26/2024 10:23 AM EST 03/26/2024 10:23 AM EST Lluvia Rosales MD LAB BLOOD ORDERABLES Final R esult [facility] [address] [place] [address], [place] [phone] * Albumin (03/26/2024 10:23 AM EST) Albumin 3.7 3.2 - 5.0 g/dL LAB CHEMISTRY METHOD 03/26/2024 2:57 PM EST [facility] Blood Venous blood specimen / Unknown Venipuncture / Unknown 03/26/2024 10:23 AM EST 03/26/2024 10:23 AM EST us Lluvia Rosales MD LAB BLOOD ORDERABLES Final R esult [facility] [address] [place] [address], [place] [phone] from Last 3 Months Insurance MEDICAID - [place] MEDICARE Care Teams Aircraft Accessories Mechanic Relationship Specialty Start Date End Date Juve Crawford MD [address] [place] [address] Dr [address] [place] PCP - General Internal Medicine 10/13/20
--- OUTSIDE RECORDS SUMMARY | 2024-06-04 11:58 | XMS_ITS | Clinical Summary ---
Author Organization [facility] Address [address] [place] [address] Care Team Providers Care Agricultural Aircraft Pilot Name Role Phone uJve Crawford MD Primary Care Provider Unava ilable Allergies Active Allergy Reactions Severity Noted Date Comments Thsc Lisinopril 07/23/2017 swelling in lips Metformin 07/23/2017 pain Sumatriptan 07/11/2020 Medications Medication Sig Dispensed Refills Start Date End Date Status rosuvastatin (CRESTOR) 5 MG tablet Take 5 mg by mouth daily. 0 Active topiramate (TOPAMAX) 100 MG tablet Take 100 mg by mouth 2 times daily. 0 Active linaCLOtide 290 MCG Cap Take by mouth. 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 Class 1 obesity due to exces s calories with serious comorbidity and body mass index (BMI) of 31.0 to 31.9 in adult 03/04/2018 Diabetes mellitus Family History Medical History Relation Name Comments Diabetes Father Hypertension Father kidney failure Father Asthma Mother Cancer of the Breast Mother Hypertension Mother Relation Name Status Comments Father Mother Alive Social History Tobacco Use Types Packs/Day Years Used Date Smoking Tobacco: Never Smokeless Tobacco: Never Tobacco Cessation:Counseling Given: Not Answered Alcohol Use Standard Drinks/Week Comments No 0 (1 standard drink = 0.6 oz pur e alcohol) Alcohol Habits Answer Date Recorded How often do you have a drink containing alcohol ? Never 03/17/2019 How many drinks containing a lcohol do you have on a typical day when you are drinking? Not asked How often do you have six or more drinks on one occasion? Not asked Sex Assigned at Date Recorded Not on file Last Filed Vital Signs Vital Sign Reading Time Taken Comments Blood Pressure 119/79 03/26/2023 9:32 AM EST Pulse 75 03/26/2023 9:32 AM EST Temperature 36.7 ??C (98 ??F) 11/22/2020 9:36 AM EDT Respiratory Rate 18 04/14/2019 10:00 AM EST Oxygen Saturation 98% 08/05/2020 9:25 AM EDT Inhaled Oxygen Concentration - - Weight 74.4 kg (164 lb 1.3 oz) 03/26/2023 9:32 A M EST Height 152.4 cm (5') 03/26/2023 9:32 AM EST Body Mass Index 32.04 03/26/2023 9:32 AM EST Plan of Treatment Health Maintenance Due Date Last Done Comments Covid-19 Vaccine (#1) 06/26/1977 DEPRESSION SCREEN 1988 DIABETES/HEART DISEASE: CHITO AL CHOLESTEROL (LDL) 1994 DIABETES: ANNUAL EYE EXAM 1994 DIABETES: ANNUAL FOOT EXAM 1994 DIABETES: ANNUAL URINE PROTE IN TEST (MICROALBUMIN) 1994 DIABETES: BLOOD SUGAR CONTRO L TEST (HGBA1C) 1994 CERVICAL CANCER SCREENING 1997 BASELINE HEALTH EXAM 40-64 2016 MAMMOGRAM 2016 INFLUENZA (#1) 2023 BMI CHECK/ADVISE 03/18/2024 03/26/2023, 10/2021, 11/22/2020, Additional history exists DTAP/TDAP/TD (8 - Td or Tdap) 01/10/2026, 06/27/2010, 07/14/1981, Additional history exists PNEUMOCOCCAL VACCINE FOR HIG H RISK PATIENTS (#2) 2041 06/27/2010 Care Teams Agricultural Aircraft Pilot Relationship Specialty Start Date End Date Juve Crawford MD PCP - General Internal Medicine 10/13/20
--- OUTSIDE RECORDS SUMMARY | 2024-06-04 11:58 | XMS_ITS | Encounter Summary ---
Author Organization [facility] Address [address] [place] [address] Care Team Providers Care Herbologist Name Role Phone Abida Lombardi MD Primary Care Provider Juve Montelongo MD Primary Care Provider Wally vickers Encounter Details Date Type Department Care Team Description 08/19/2020 Orders Only Gastroenterology - [address] [place] [address] Chalo Owens MD Dysphagia, unspecified type Social History Tobacco Use Types Packs/Day Years [...] Assigned at Date Recorded Not on file COVID-19 Exposure Response Date Recorded In the last month, have you been in contact with someone who was confirmed or suspected to have Coronavirus / COVID-19? No / Unsure 08/05/2020 9:16 AM EDT documented as of this encounter Progress Notes * Chalo Owens MD - 08/19/2020 5:08 PM EDT Barium swallow normal. documented in this encounter Plan of Treatment Not on file documented as of this encounter Procedures Procedure Name Priority Date/Time Associated Diagnosis Comments CHG RADIOLOGIC EXAM ESOPHAGUS SINGLE CONTRAST STUDY Routine 08/19/2020 Dysphagia, unspecified type documented in this encounter Results * RADIOLOGIC EXAM ESOPHAGUS SINGLE CONTRAST STUDY (08/19/2020) Chalo Owens MD RADIOLOGY documented in this encounter Visit Diagnoses Diagnosis Dysphagia, unspecified type documented in this encounter Care Teams Herbologist Relationship Specialty Start Date End Date Abida Lombardi MD PCP - General Internal Medicine 04/14/19 10/12/20 Juve Crawford MD PCP - General Internal Medicine 10/13/20 documented as of this encounter
--- OUTSIDE RECORDS SUMMARY | 2024-06-04 11:58 | XMS_ITS | Encounter Summary ---
Author Organization [facility] Address [address] [place] [address] Care Team Providers Care Floor Plan Adjuster Name Role Phone Abida Lombardi MD Primary Care Provider Juve Montelongo MD Primary Care Provider Wally vickers Encounter Details Date Type Department Care Team Description 09/06/2020 Hospital Medical Records [address] [place] [address] Claribel Singleton MD [address] [place] [address] Social History Tobacco Use Types Packs/Day Years [...] Assigned at Date Recorded Not on file documented as of this encounter Plan of Treatment Not on file documented as of this encounter Visit Diagnoses Not on filedocumented in this encounter Care Teams Floor Plan Adjuster Relationship Specialty Start Date End Date Abida Lombardi MD PCP - General Internal Medicine 04/14/19 10/12/20 Juve Crawford MD PCP - General Internal Medicine 10/13/20 documented as of this encounter
--- OUTSIDE RECORDS SUMMARY | 2024-06-04 11:58 | XMS_ITS | Encounter Summary ---
Author Organization [facility] Address [address] [place] [address] Care Team Providers Care Director Intelligence Analysis Programs Name Role Phone Jimmy Page MD Primary Care Provider Abida Hernández MD Primary Care Provider Juve Montelongo MD Primary Care Provider Wally vickers Encounter Details Date Type Department Care Team Description 02/23/2018 Release of Information Medical Records [address] [place] [id number] Abstract, Provider Social History Tobacco Use Types Packs/Day Years Used Date Smoking Tobacco: Never Smokeless Tobacco: Never Alcohol Habits Answer Date Recorded How often [...] on filedocumented in this encounter Care Teams Director Intelligence Analysis Programs Relationship Specialty Start Date End Date Jimmy Page MD PCP - General Internal Medicine 06/08/17 04/13/19 Abida Lombardi MD PCP - General Internal Medicine 04/14/19 10/12/20 Juve Crawford MD PCP - General Internal Medicine 10/13/20 documented as of this encounter
--- OUTSIDE RECORDS SUMMARY | 2024-06-04 11:58 | XMS_ITS | Clinical Summary ---
Author Organization [employer] Address [address] [facility] 7[address] [place] [address] Care Team Providers Care Oncology Transplant Network Manager Name Role Phone Unavailable Primary Care [...] patient's age to complete this topic Insurance [facility] LIMITED [facility] FULL
--- OUTSIDE RECORDS SUMMARY | 2024-06-04 11:58 | XMS_ITS | Encounter Summary ---
Author Organization [facility] Address [address] [place] [address] Care Team Providers Care Senior Javascript Developer Name Role Phone Abida Lombardi MD Primary Care Provider Juve Montelongo MD Primary Care Provider Wally vickers Encounter Details Date Type Department Care Team Description 05/10/2020 Old Medical Records Medical Records [address] [place] [address] Abstract, Provider Social History Tobacco Use Types [...] on filedocumented in this encounter Care Teams Senior Javascript Developer Relationship Specialty Start Date End Date Abida Lombardi MD PCP - General Internal Medicine 04/14/19 10/12/20 Juve Crawford MD PCP - General Internal Medicine 10/13/20 documented as of this encounter
== END 2024-06-04 10:28 | disposition home or self-care (01) ==
LOC: HO.MAMMO 10:27
PROVIDERS: PCP Internal Medicine; Visit Provider Internal Medicine
DX: R92.2 Inconclusive mammogram (principal)
CPT/HCPCS: 77062; 77066

== ENCOUNTER → 2024-06-04 11:00 | Outpatient (BNV) | payer MEDICARE, MEDICAID, SELFPAY | PROVIDERS: PCP Internal Medicine; Visit Provider Internal Medicine | DX: N64.89 Other specified disorders of breast (principal) | CPT/HCPCS: 77066; G0279 ==

== ENCOUNTER 2024-06-15 10:00 | Outpatient (AMB) | payer MEDICARE, MEDICAID, SELFPAY ==
--- OUTSIDE RECORDS SUMMARY | 2024-06-15 11:09 | XMS_ITS | Clinical Summary ---
Author Organization [facility] Address [address] [place] [address] Phone Care Team Providers Care Stave Cutting Supervisor Name Role Phone Juve Crawford MD Primary [...] AM EST Office Visit Bariatric Surgery - [address] [address] Lluvia Rosales MD Class 1 obesity due to excess calories with body mass index (BMI) of 34.0 to 34.9 in adult, unspecified whether serious comorbidity present (Primary Dx); Postgastrectomy malabsorption from Last 3 Months Surgical History Surgery Date Site/Laterality Comments OTHER SURGICAL HISTORY PROCEDURE: WI LAPS GSTR RSTCV PX W/BYP KAYLAH-EN-Y LIMB [...] AM EDT Office Visit Bariatric Surgery - [place] [address] [facility] [address] [place] [address] Lluvia Rosales MD [address] [facility] [address] [place] [address] Health Maintenance Due Date Last Done Comments [...] MD LAB BLOOD ORDERABLES Final R esult [facility] [address] [place] [address], [place] [phone] * Copper, serum (03/26/2024 10:23 AM EST) Copper 1229 810 - 1990 ug/L 03/31/2024 6:32 AM EST [facility] Comment: Copper values may be elevated to twice the normal levels in . Elevated results may be due to sample collected in a non-certified trace element-free tube. This test was developed and the performance characteristics determined by [facility]. It has not been cleared or approved by the FDA. The laboratory is regulated under CLIA as qualified to perform high-complexity testing. This test is used for patient testing purposes. It should not be regarded as investigational or for research. Test performed at [facility], [address] [place], [place] ??[address] ? [phone] Supriya Rouse MD, PhD - Bleacher Sulfite Pulp Blood Venous blood specimen / Unknown Venipuncture / Unknown 03/26/2024 10:23 AM EST 03/26/2024 10:23 AM EST Lluvia Rosales MD LAB BLOOD ORDERABLES Final R esult [facility] [address] [place] [address] * (ABNORMAL) Zinc (03/26/2024 10:23 AM EST) Zinc 57(L) 60 - 130 ug/dL 03/30/2024 9:43 AM EST [facility] Comment: Elevated results may be due to sample collected in a non-certified trace element-free tube. This test was developed and the performance characteristics determined by [facility]. It has not been cleared or approved by the FDA. The laboratory is regulated under CLIA as qualified to perform high-complexity testing. This test is used for patient testing purposes. It should not be regarded as investigational or for research. Test performed at [facility], [address] [place], [place] [address] ? [phone] Supriya Rouse MD, PhD - Bleacher Sulfite Pulp Blood Venous blood specimen / Unknown Venipuncture / Unknown 03/26/2024 10:23 AM EST 03/26/2024 10:23 AM EST Lluvia Rosales MD LAB BLOOD ORDERABLES Final R esult [facility] [address] [place] [address] * Vitamin A (03/26/2024 10:23 AM EST) Vitamin A 41 38 - 106 ug/dL 03/31/2024 6:40 AM EST [facility] Comment: This test was developed and the performance characteristics determined by [facility]. It has not been cleared or approved by the FDA. The laboratory is regulated under CLIA as qualified to perform high-complexity testing. This test is used for patient testing purposes. It should not be regarded as investigational or for research. Test performed at [facility], [address] [place], [place] ??[address] ? [phone] Supriya Rouse MD, PhD - Bleacher Sulfite Pulp Blood Venous blood specimen / Unknown Venipuncture / Unknown 03/26/2024 10:23 AM EST 03/26/2024 10:23 AM EST Lluvia Rosales MD LAB BLOOD ORDERABLES Final R esult Performing Organization Address [facility] Co de Phone Number [facility] [address] [place] [address] * Selenium serum (03/26/2024 10:23 AM EST) Selenium 149 63 - 160 mcg/L 04/05/2024 11:38 PM EST [facility] Comment: (Note) This test was developed and its analytical performance characteristics have been determined by [facility]. It has not been cleared or approved by the FDA. This assay has been validated pursuant to the CLIA regulations and is used for clinical purposes. [facility] [address] [facility] [address] [facility] [address] Chan Francois MD, PhD Test Performed at: [facility] [address] [facility] [address], [address] [place], [place] ??[address] ? Alec Francois MD, PhD Blood Venous blood specimen / Unknown Venipuncture / Unknown 03/26/2024 10:23 AM EST 03/26/2024 10:23 AM EST us Lluvia Rosales MD LAB BLOOD ORDERABLES Final R esult [facility] [address] [place] [address] * Vitamin D 25 hydroxy (03/26/2024 10:23 AM EST) Vit D, 25-Hydroxy 31.6 30.0 - 80.0 ng/mL LAB CHEMISTRY METHOD 03/26/2024 3:04 PM EST [facility] Blood Venous blood specimen / Unknown Venipuncture / Unknown 03/26/2024 10:23 AM EST 03/26/2024 10:23 AM EST Lluvia Rosales MD LAB BLOOD ORDERABLES Final R esult [facility] [address] [place] [address], * Vitamin B1 (03/26/2024 10:23 AM EST) [facility] Vitamin B1 Whole Blood 75 38 - 122 ug/L 03/31/2024 9:38 AM EST [facility] Comment: This test was developed and the performance characteristics determined by [facility]. It has not been cleared or approved by the FDA. The laboratory is regulated under CLIA as qualified to perform high-complexity testing. This test is used for patient testing purposes. It should not be regarded as investigational or for research. Test performed at [facility], [address] , [place], [place] ??[address] ? [phone] Supriya Rouse MD, PhD - Bleacher Sulfite Pulp Blood Venous blood specimen / Unknown Venipuncture / Unknown 03/26/2024 10:23 AM EST 03/26/2024 10:23 AM EST us Lluvia Rosales MD LAB BLOOD ORDERABLES Final R esult [facility] [address] [place] [address] * Folate (03/26/2024 10:23 AM EST) [facility] Folate 15.5 2.8 - 17.0 ng/ml LAB CHEMISTRY METHOD 03/26/2024 3:36 PM EST [facility] Blood Venous blood specimen / Unknown Venipuncture / Unknown 03/26/2024 10:23 AM EST 03/26/2024 10:23 AM EST us Lluvia Rosales MD LAB BLOOD ORDERABLES Final R esult Performing Organization Address [facility] Co de Phone Number [facility] [address] [place] [address], [place] [phone] * (ABNORMAL) Vitamin B12 (03/26/2024 10:23 AM EST) [facility] Vitamin B-12 232(L) 250 - 900 pcg/mL LAB CHEMISTRY METHOD 03/26/2024 3:36 PM EST [facility] Blood Venous blood specimen / Unknown Venipuncture / Unknown 03/26/2024 10:23 AM EST 03/26/2024 10:23 AM EST us Lluvia Rosales MD LAB BLOOD ORDERABLES Final R esult Performing Organization Address City/[facility]/ZIP Co de Phone Number [facility] [address] [place] [address], [place] [phone] * Calcium (03/26/2024 10:23 AM EST) [facility] Calcium 9.1 8.5 - 10.5 mg/dL LAB CHEMISTRY METHOD 03/26/2024 3:36 PM EST [facility] Blood Venous blood specimen / Unknown Venipuncture / Unknown 03/26/2024 10:23 AM EST 03/26/2024 10:23 AM EST Lluvia Rosales MD LAB BLOOD ORDERABLES Final R esult [facility] [address] [place] [address], [place] [phone] * Albumin (03/26/2024 10:23 AM EST) Albumin 3.7 3.2 - 5.0 g/dL LAB CHEMISTRY METHOD 03/26/2024 2:57 PM EST [facility] Blood Venous blood specimen / Unknown Venipuncture / Unknown 03/26/2024 10:23 AM EST 03/26/2024 10:23 AM EST us Lluvia Rosales MD LAB BLOOD ORDERABLES Final R esult [facility] [address] [place] [address], [place] [phone] from Last 3 Months Insurance MEDICAID - [place] MEDICARE Care Teams Stave Cutting Supervisor Relationship Specialty Start Date End Date Juve Crawford MD [address] [place] [address] [address] [place] PCP - General Internal Medicine 10/13/20
--- OUTSIDE RECORDS SUMMARY | 2024-06-15 11:09 | XMS_ITS | Clinical Summary ---
Author Organization [facility] Address [address] [place] [address] Care Team Providers Care Track Grinder Name Role Phone Juve Crawford MD Primary Care Provider Unava ilable [...] RISK PATIENTS (#2) 2041 06/27/2010 Care Teams Track Grinder Relationship Specialty Start Date End Date Juve Crawford MD PCP - General Internal Medicine 10/13/20
--- OUTSIDE RECORDS SUMMARY | 2024-06-15 11:09 | XMS_ITS | Encounter Summary ---
Author Organization [facility] Address [address] [place] [address] Care Team Providers Care Passenger Flagman Name Role Phone Jimmy Page MD Primary Care Provider Abida Hernández MD Primary Care Provider Juve Montelongo MD Primary Care Provider Wally vickers Encounter Details Date Type Department Care Team Description 07/26/2017 Release of Information Medical Records [address] [place] [id number] Abstract, Provider Social History Tobacco Use Types [...] on filedocumented in this encounter Care Teams Passenger Flagman Relationship Specialty Start Date End Date Jimmy Page MD PCP - General Internal Medicine 06/08/17 04/13/19 Abida Lombardi MD PCP - General Internal Medicine 04/14/19 10/12/20 Juve Crawford MD PCP - General Internal Medicine 10/13/20 documented as of this encounter
--- OUTSIDE RECORDS SUMMARY | 2024-06-15 11:09 | XMS_ITS | Clinical Summary ---
Author Organization [facility] Address [address] [facility] [address] [place] [address] Care Team Providers Care Hearing Dog Trainer Name Role Phone Unavailable Primary Care Provider [...] this topic Meningococcal Vaccine Aged Out No trye marlon eligible based on patient's age to complete this topic RSV under 20 months Aged Out No longe r eligible based on patient's age to complete this topic Rotavirus Vaccines Aged Out No longer eligible based on patient's age to complete this topic Insurance [facility] LIMITED [facility] FULL
--- OUTSIDE RECORDS SUMMARY | 2024-06-15 11:09 | XMS_ITS | Encounter Summary ---
Author Organization [facility] Address [address] [place] [address] Care Team Providers Care Wagon Drill Operator Name Role Phone Abida Lombardi MD Primary Care Provider Juve Montelongo MD Primary Care Provider Wally vickers Encounter Details Date Type Department Care Team Description 08/19/2020 Orders Only Gastroenterology - [address] [place] [address] Chalo Owens MD Dysphagia, unspecified [...] type documented in this encounter Care Teams Wagon Drill Operator Relationship Specialty Start Date End Date Abida Lombardi MD PCP - General Internal Medicine 04/14/19 10/12/20 Juve Crawford MD PCP - General Internal Medicine 10/13/20 documented as of this encounter
--- OUTSIDE RECORDS SUMMARY | 2024-06-15 11:09 | XMS_ITS | Encounter Summary ---
Author Organization [facility] Address [address] [place] [address] Care Team Providers Care Skin Former Name Role Phone Abida Lombardi MD Primary Care Provider Juve Montelongo MD Primary Care Provider Wally vickers Encounter Details Date Type Department Care Team Description 09/06/2020 Hospital Medical Records [address] [place] [address] Claribel Singleton MD [address] [place] [address] Social History Tobacco Use Types Packs/Day Years [...] on filedocumented in this encounter Care Teams Skin Former Relationship Specialty Start Date End Date Abida Lombardi MD PCP - General Internal Medicine 04/14/19 10/12/20 Juve Crawford MD PCP - General Internal Medicine 10/13/20 documented as of this encounter
--- OUTSIDE RECORDS SUMMARY | 2024-06-15 11:09 | XMS_ITS | Encounter Summary ---
Author Organization [facility] Address [address] [place] [address] Care Team Providers Care Life Insurance Actuary Name Role Phone Aibda Lombardi MD Primary Care Provider Juve Montelongo MD Primary Care Provider Wally vickers Reason for Visit * Reason Onset Date Comments APPOINTMENT 09/20/2020 Encounter Details Date Type Department Care Team Description 09/20/2020 Telephone Gastroenterology - [address] [address] Chalo Owens MD APPOINTMENT Social History Tobacco Use Types Packs/Day Years [...] on file documented as of this encounter Miscellaneous Notes * Telephone Encounter - Toni Hernández PA-C - 09/22/2020 3:14 PM EDT Noted. My recommendation remains that she should be evaluated in the ED. * Telephone Encounter - Kathie Presley - 09/22/2020 2:16 PM EDT Spoke to the patient and she states that she did not go to the ER when advised to go. She didn't want to wait. * Telephone Encounter - Violeta Riddle M.A. - 09/20/2020 2:22 PM EDT Patient was reached and notified that Toni advises her to go to the ED to r/o incarcerated hernia and get a cardiac workup. Asked to go to the closest ED and to call us with an update so we can obtain ER notes, procedures, labs. * Telephone Encounter - Toni Hernández PA-C - 09/20/2020 1:52 PM EDT Pt needs to go to the ED to r/o incarcerated hernia and get a cardiac w/u * Telephone Encounter - Emely Kerns - 09/20/2020 10:39 AM EDT Pt calling in states her hernia is hurting a lot pt also having chest pain Please advise Call pt at [phone] Thanks documented in this encounter Plan of Treatment Not on file documented as of this encounter Visit Diagnoses Not on filedocumented in this encounter Care Teams Life Insurance Actuary Relationship Specialty Start Date End Date Abida Lombardi MD PCP - General Internal Medicine 04/14/19 10/12/20 Juve Crawford MD PCP - General Internal Medicine 10/13/20 documented as of this encounter
--- NOTE | 2024-06-15 11:12 | MHC.OFFWIV ---
Intake Vital Signs 06/15/24 11:13 Height 5 ft Weight 183 lb BMI 35.7 BP 114/70 Blood Pressure Location Lt brachial Position Sitting Pulse 61 Pulse Source Pulse Oximeter Pulse Oximetry (%) 98 Oxygen Delivery Method Room Air Intake Visit Reasons: EP chest congestion/discomfort, back pain Intake Note: Patient here for chest congestion, lung discomfort and back pain and cough that has been present for about 4 days. Patient Tobacco Use Status: Never used Tobacco Allergies lisinopril [LISINOPRIL] Allergy (Severe, Verified 06/15/24 11:14) ANAPYHLAXIS, swelling metformin [METFORMIN] Allergy (Severe, Verified 06/15/24 11:14) ANAPHYLAXIS, diarrhea sumatriptan [From IMITREX] Allergy (Severe, Verified 06/15/24 11:14) ANAPHYLAXIS, sedation HPI HPI Comments History of Present Illness Details History The patient is a 48-year-old female presenting with respiratory symptoms. Symptoms started three to four days ago. The primary complaint is a persistent cough, accompanied by discomfort around the chest and back, but there is no fever, ear, or sinus pain. A history of asthma or COPD was denied, with asthma mistakenly mentioned concerning another individual. Previous attempts to manage symptoms with Nyquil and Dayquil were ineffective, and she did not use Advil or Tylenol. She denied breathing difficulties, wheezing, or shortness of breath, sinus pain, ear pain, fatigue or head congestion. Physical Exam General: Cooperative, healthy appearing, comfortable and no acute distress Orientation/consciousness: Patient oriented x3 Limitations: No limitations Head: Normal to inspection Ears: Hearing grossly normal bilaterally, external ears normal and TM's normal bilaterally Nose: Normal external nose present, Normal nares present and No nasal discharge present Face and sinus: Normal facial exam and Yes sinuses nontender Mouth: Normal oral and palatal mucosa present and moist mucous membranes Throat: Yes tonsils normal, Yes uvula midline. Posterior oropharynx slight erythema Eyes: Appearance normal, both eyes and all related structures Neck: Normal visual inspection Respiratory: Clear to auscultation bilaterally. Normal respiratory effort, able to speak in complete sentences, no respiratory distress, not tachypneic, no tripod positioning and no use of accessory muscles Cardiovascular: Regular rate and rhythm. Normal S1 and S2 Skin: No rashes or lesions noted Neuro: Patient oriented x3 Extremities: Normal to inspection and Yes no clubbing, cyanosis or edema [facility] Medical History Vulvovaginitis Vulvar abscess Lumbar degenerative disc disease Foreign body in throat Lumbar back pain with radiculopathy affecting right lower extremity Rhinitis ASCUS of cervix with negative high risk HPV Internal derangement of right knee Lumbar radicular pain Renal calculi Hypothyroidism (acquired) Anemia Vitamin D deficiency Pure hypercholesterolemia Obesity (BMI 30-39.9) Costochondritis Migraine Allergic rhinitis Diabetes mellitus Occipital neuralgia of left side Chronic pain syndrome Spondylosis of cervical spine without myelopathy Arthritis EKG abnormalities Anal fissure Gastroparesis Hepatomegaly MIO on CPAP Insomnia Anxiety Constipation GERD (gastroesophageal reflux disease) B12 deficiency Proteinuria Type 2 diabetes mellitus with other diabetic kidney complication Hypoglycemia after GI (gastrointestinal) surgery Surgical History H/O colonoscopy H/O gastric bypass History of tubal ligation Hx of lithotripsy History of umbilical hernia Hx of section History of esophagogastroduodenoscopy (EGD) Hx of bilateral breast reduction surgery Hx of cholecystectomy Family History Father Liver cancer Hypertension Diabetes mellitus CVD (cardiovascular disease) Liver failure Mother Hypercholesterolemia Breast cancer Asthma Depression Maternal Grandmother Diabetes mellitus Hypertension Paternal Grandmother Diabetes mellitus Hypertension Social History Household Members: Significant Other Housing: House Alcohol intake: never Patient Tobacco Use Status: Never used Tobacco e-Cigarette/Vaping Use: Never Used Second Hand Smoke Exposure: Yes service: No Current occupational status: disabled Cognitive needs: No Hearing needs: No Vision needs: Yes Female Reproductive History Menstrual Age of Menarche: 11 Review of Systems Const All systems reviewed & are unremarkable except as noted in HPI and below Physical Exam Vital Signs: Last Vital Signs Pulse 61 06/15/24 11:13 BP 114/70 06/15/24 11:13 Pulse Ox 98 06/15/24 11:13 Oxygen Delivery Method Room Air 06/15/24 11:13 BMI result Body Mass Index 35.7 Assessment & Plan Assessment & Plan (1) URI, acute: Code(s): J06.9 - Acute upper respiratory infection, unspecified Plan: VSS, pt well appearing and PE unremarkable. Testing for influenza, COVID-19, and RSV was conducted due to the patient's upper respiratory symptoms. Symptomatic management is recommended using OTC decongestants like Mucinex or Marley D for nasal congestion relief, aiming to lessen coughing episodes for comfort, particularly during rest. The necessity of antibiotics was dismissed due to the lack of bacterial infection signs. A cough suppressant prescription was provided for night-time relief, enabling the patient to rest better. Emphasis was placed on rest and symptom monitoring. The patient will be informed of test results later, and she was advised to seek further medical attention should conditions deteriorate. Patient was informed and verbally consented to the use of an ambient scribe for clinic note documentation during this visit Orders: Orders SARS-CoV2/FLU/RSV Today R09.89 - Other specified symptoms and signs involving the circulatory and respiratory systems Medications: New benzonatate 200 mg PO BEDTIME PRN 10 caps 0RF cough Coding Level of Care Code Est Pt Level 3 (10534) Diagnoses URI, acute J06.9
[2024-06-15 11:13] VITALS: BP 114/70; PULSE 61; O2SAT 98; BMI 35.7
== END 2024-06-15 13:02 | disposition home or self-care (01) ==
PROVIDERS: PCP Internal Medicine; Visit Provider Physician Assistant
DX: J06.9 Acute upper respiratory infection, unspecified (principal)

== ENCOUNTER 2024-06-15 10:00 | Outpatient (REF) | payer MEDICARE, MEDICAID, SELFPAY ==
--- OUTSIDE RECORDS SUMMARY | 2024-06-15 13:11 | XMS_ITS | Clinical Summary ---
Author Organization [facility] Address [address] [facility] [address] [place] [address] Care Team Providers Care Property Management Supervisor Name Role Phone Unavailable Primary Care Provider [...] patient's age to complete this topic Insurance [facility]
--- OUTSIDE RECORDS SUMMARY | 2024-06-15 13:11 | XMS_ITS | Clinical Summary ---
Author Organization [address] [facility] Address [address] [place] [address] Phone Care Team Providers Care Snuff Grinder Name Role Phone Juve Crawford MD [...] AM EST Office Visit Bariatric Surgery - [address] [address] Lluvia Rosales MD Class 1 obesity due to excess calories with body mass index (BMI) of 34.0 to 34.9 in adult, unspecified whether serious comorbidity present (Primary Dx); Postgastrectomy malabsorption from Last 3 Months Surgical History Surgery Date Site/Laterality Comments OTHER SURGICAL HISTORY PROCEDURE: [place] LAPS GSTR RSTCV PX W/BYP KAYLAH-EN-Y LIMB [...] AM EDT Office Visit Bariatric Surgery - [place] [address] [facility] [address] [place] [address] Lluvia Rosales MD [address] [facility] [address] [place] [address] Health Maintenance Due Date Last Done Comments [...] esult [facility] [address] [place] [address], [place] [phone] * Copper, serum (03/26/2024 10:23 AM EST) Copper 1229 810 - 1990 ug/L 03/31/2024 6:32 AM EST [facility] Comment: Copper values may be elevated to twice the normal levels in . Elevated results may be due to sample collected in a non-certified trace element-free tube. This test was developed and the performance characteristics determined by [facility]. It has not been cleared or approved by the FDA. The laboratory is regulated under CLIA as qualified to perform high-complexity testing. This test is used for patient testing purposes. It should not be regarded as investigational or for research. Test performed at [facility], [address], [place] ??[address] ? [phone] Supriya Rouse MD, PhD - [employer] Blood Venous blood specimen / Unknown Venipuncture / Unknown 03/26/2024 10:23 AM EST 03/26/2024 10:23 AM EST Lluvia Rosales MD LAB BLOOD ORDERABLES Final R esult [facility] [address] [place] [address] * (ABNORMAL) Zinc (03/26/2024 10:23 AM EST) Zinc 57(L) 60 - 130 ug/dL 03/30/2024 9:43 AM EST [facility] Comment: Elevated results may be due to sample collected in a non-certified trace element-free tube. This test was developed and the performance characteristics determined by [facility]. It has not been cleared or approved by the FDA. The laboratory is regulated under CLIA as qualified to perform high-complexity testing. This test is used for patient testing purposes. It should not be regarded as investigational or for research. Test performed at [facility], [address], [place] ??[address] ? [phone] Supriya Rouse MD, PhD - [employer] Blood Venous blood specimen / Unknown Venipuncture / Unknown 03/26/2024 10:23 AM EST 03/26/2024 10:23 AM EST Lluvia Rosales MD LAB BLOOD ORDERABLES Final R esult [facility] [address] [place] [address] * Vitamin A (03/26/2024 10:23 AM EST) Vitamin A 41 38 - 106 ug/dL 03/31/2024 6:40 AM EST [facility] Comment: This test was developed and the performance characteristics determined by [facility]. It has not been cleared or approved by the FDA. The laboratory is regulated under CLIA as qualified to perform high-complexity testing. This test is used for patient testing purposes. It should not be regarded as investigational or for research. Test performed at [facility], [address], [place] ??[address] ? [phone] Supriya Rouse MD, PhD - [employer] Blood Venous blood specimen / Unknown Venipuncture / Unknown 03/26/2024 10:23 AM EST 03/26/2024 10:23 AM EST Lluvia Rosales MD LAB BLOOD ORDERABLES Final R esult Performing Organization Address [facility] Co de Phone Number [facility] [address] [place] [address] * Selenium serum (03/26/2024 10:23 AM EST) Selenium 149 63 - 160 mcg/L 04/05/2024 11:38 PM EST [facility] Comment: (Note) This test was developed and its analytical performance characteristics have been determined by [facility]. It has not been cleared or approved by the FDA. This assay has been validated pursuant to the CLIA regulations and is used for clinical purposes. [facility] [id number] [facility] [employer] [address] [facility] [address] Chan Francois MD, PhD Test Performed at: [facility] [address] [facility] [address], [address] [place], [place] ??[address] ? Alec Francois MD, PhD Blood Venous blood specimen / Unknown Venipuncture / Unknown 03/26/2024 10:23 AM EST 03/26/2024 10:23 AM EST us Lluvia Rosales MD LAB BLOOD ORDERABLES Final R esult [facility] [address] [place] [address] * Vitamin D 25 hydroxy (03/26/2024 10:23 AM EST) Vit D, 25-Hydroxy 31.6 30.0 - 80.0 ng/mL LAB CHEMISTRY METHOD 03/26/2024 3:04 PM EST [facility] Blood Venous blood specimen / Unknown Venipuncture / Unknown 03/26/2024 10:23 AM EST 03/26/2024 10:23 AM EST Lluvia Rosales MD LAB BLOOD ORDERABLES Final R esult [facility] [address] [place] [address], * Vitamin B1 (03/26/2024 10:23 AM EST) [facility] Vitamin B1 Whole Blood 75 38 - 122 ug/L 03/31/2024 9:38 AM EST [facility] Comment: This test was developed and the performance characteristics determined by [facility]. It has not been cleared or approved by the FDA. The laboratory is regulated under CLIA as qualified to perform high-complexity testing. This test is used for patient testing purposes. It should not be regarded as investigational or for research. Test performed at [facility], [address] , [place], [place] ??[address] ? [phone] Supriya Rouse MD, PhD - [employer] Blood Venous blood specimen / Unknown Venipuncture / Unknown 03/26/2024 10:23 AM EST 03/26/2024 10:23 AM EST us Lluvia Rosales MD LAB BLOOD ORDERABLES Final R esult [facility] [address] [place] [address] * Folate (03/26/2024 10:23 AM EST) [facility] Folate 15.5 2.8 - 17.0 ng/ml LAB CHEMISTRY METHOD 03/26/2024 3:36 PM EST [facility] Blood Venous blood specimen / Unknown Venipuncture / Unknown 03/26/2024 10:23 AM EST 03/26/2024 10:23 AM EST us Lluvia Rosales MD LAB BLOOD ORDERABLES Final R esult Performing Organization Address [facility] Co de Phone Number [facility] [address] [place] [address], [place] [phone] * (ABNORMAL) Vitamin B12 (03/26/2024 10:23 AM EST) [facility] Vitamin B-12 232(L) 250 - 900 pcg/mL LAB CHEMISTRY METHOD 03/26/2024 3:36 PM EST [facility] Blood Venous blood specimen / Unknown Venipuncture / Unknown 03/26/2024 10:23 AM EST 03/26/2024 10:23 AM EST us Lluvia Rosales MD LAB BLOOD ORDERABLES Final R esult Performing Organization Address City/[facility]/ZIP Co de Phone Number [facility] [address] [place] [address], [place] [phone] * Calcium (03/26/2024 10:23 AM EST) [facility] Calcium 9.1 8.5 - 10.5 mg/dL LAB CHEMISTRY METHOD 03/26/2024 3:36 PM EST [facility] Blood Venous blood specimen / Unknown Venipuncture / Unknown 03/26/2024 10:23 AM EST 03/26/2024 10:23 AM EST Lluvia Rosales MD LAB BLOOD ORDERABLES Final R esult [facility] [address] [place] [address], [place] [phone] * Albumin (03/26/2024 10:23 AM EST) Albumin 3.7 3.2 - 5.0 g/dL LAB CHEMISTRY METHOD 03/26/2024 2:57 PM EST [facility] Blood Venous blood specimen / Unknown Venipuncture / Unknown 03/26/2024 10:23 AM EST 03/26/2024 10:23 AM EST us Lluvia Rosales MD LAB BLOOD ORDERABLES Final R esult [facility] [address] [place] [address], [place] [phone] from Last 3 Months Insurance MEDICAID - [place] MEDICARE Care Teams Snuff Grinder Relationship Specialty Start Date End Date Juve Crawford MD [address] [place] [address] [address] [place] PCP - General Internal Medicine 10/13/20
[2024-06-15 14:30] LABS: Influenza A PCR NEGATIVE (Negative); Influenza B PCR NEGATIVE (Negative); Resp Syncy Virus RNA Qual PCR NEGATIVE (Negative); SARS COV2 PCR INHOUSE NEGATIVE (Negative)
== END 2024-06-15 10:01 | disposition home or self-care (01) ==
LOC: HO.LAB 10:00
PROVIDERS: Physician Assistant; PCP Internal Medicine
DX: J06.9 Acute upper respiratory infection, unspecified (principal); R09.89 Other specified symptoms and signs involving the circulatory and respiratory systems
CPT/HCPCS: 0241U; 99212

== ENCOUNTER 2024-06-18 13:28 | Outpatient (AMB) | payer MEDICARE, MEDICAID, SELFPAY ==
--- NOTE | 2024-06-18 12:31 | MHC.OFFVIS ---
Intake Visit Reasons: Followup/CT scan Intake Note: Patient is present for CT scan follow up 05/13/24 Urology Medication:VITAMIN B6 Antibiotic Allergy:METFORMIN Blood Thinner:NONE PVR:0ml Steam Cleaning Machine Operator Required: No Allergies lisinopril [LISINOPRIL] Allergy (Severe, Verified 06/18/24 14:32) ANAPYHLAXIS, swelling metformin [METFORMIN] Allergy (Severe, Verified 06/18/24 14:32) ANAPHYLAXIS, diarrhea sumatriptan [From IMITREX] Allergy (Severe, Verified 06/18/24 14:32) ANAPHYLAXIS, sedation Medication List - Last Reconciled 06/18/24 by Michelle Schulte MD acarbose 100 mg PO TID alcohol swabs (Alcohol Pads) 1 pad topical TID 30 days alprazolam 1 mg PO TID PRN blood sugar diagnostic (FreeStyle Lite Strips) test blood sugar once a day as instructed - frequent low blood sugar readings blood-glucose meter (FreeStyle Lite Meter kit) As directed once a day cetirizine 10 mg PO DAILY PRN 90 days clonidine HCl 0.1 mg PO DAILY cyanocobalamin (vitamin B-12) 500 mcg sublingual daily, saturday - saturday; 30 days dicyclomine 20 mg PO QID PRN fluticasone propionate 50 mcg/actuation 1 spray intranasal DAILY ibuprofen 800 mg PO TID PRN 30 days lancets (FreeStyle Lancets) test blood sugar once as instructed - frequent LOW blood sugar readings levothyroxine 50 mcg PO DAILY 90 days linaclotide (Linzess) 290 mcg PO DAILY 30 days melatonin 5 - 10 mg PO BEDTIME PRN metoclopramide HCl (Reglan) 10 mg PO QIDACHS oxybutynin chloride ER 10 mg PO DAILY pyridoxine (vitamin B6) 100 mg PO DAILY rosuvastatin 5 mg PO DAILY 90 days simethicone 180 mg PO QID 30 days topiramate 100 mg PO BEDTIME 90 days tramadol 1 tablet 1 to 2 times a day orally ONLY NEEDED for SEVERE PAIN; 30 days HPI Comments Details: 06/18/24-- History of Present Illness The patient is a 48-year-old female presenting with nephrolithiasis. A recent CT scan identified two 2 mm calculi in the left kidney, described as very small stones likely to pass naturally. She follows a prescribed diet and maintains high fluid intake to avoid future stone formation. Additionally, she is treated for overactive bladder with oxybutynin 10 mg, which effectively controls her symptoms. Urinary Symptoms Review - Overactive bladder managed with oxybutynin 10 mg. - Compliance with high fluid intake. - No reported symptoms of urinary tract infections. Results - Imaging: Recent CT scan revealed two 2 mm kidney stones in the left kidney. Discussion Notes During the visit, we discussed the results of the recent CT scan, confirming the presence of two very small stones in the left kidney. I emphasized the importance of continued adherence to dietary modifications and fluid intake to facilitate passing of the stones and prevent future occurrences. We addressed her current management of overactive bladder with oxybutynin and determined it remains effective. I explained the plan to renew her prescription for both oxybutynin and vitamin B6 supplementation and scheduled follow-up care, including an ultrasound and urine analysis at the office in one year, provided she remains asymptomatic. CTAP--05/13/24--2 tiny nonobstructing calculi at the upper pole of the left kidney measuring up to 2 mm in size. No right renal calculi are seen. 03/20/24--Ton is a 48-year-old followed kidney stones and overactive bladder. I reviewed renal ultrasound from November there is a new complex renal cyst in the left kidney. We will get CT renal protocol for further evaluation. The patient states she is doing well with the oxybutynin. Renal US: 11/19/23--RIGHT KIDNEY: No hydronephrosis. No renal calculi. LEFT KIDNEY: 0.6 cm left renal upper pole calcification may represent a nonobstructing calculus or a calcification associated with a 1.6 cm upper pole cyst. The cyst was not appreciated on prior exams. Limited visualization. 01/17/2023?Ton is a 47-year-old female who presents today to the office for a follow-up. She is followed kidney stones and OAB. Prior gastric bypass surgery 2015 She was last seen by me on 01/08/2023. She has been taking oxybutynin with benefit improvement in urinary urgency She denies any burning with urination or any other urinary symptoms. She states that she is drinking adequate amount of fluids. She also mentions that she is adding lemonade to water. I reviewed renal ultrasound results 12/20/22-- No kidney stones noted. Imaging: renal U/S results 9.28.22- kidneys WNL, no recurrent stones. She is encouraged to CT Imaging showed 2 mm stone left kidney PFSH Medical History Vulvovaginitis Vulvar abscess Lumbar degenerative disc disease Foreign body in throat Lumbar back pain with radiculopathy affecting right lower extremity Rhinitis ASCUS of cervix with negative high risk HPV Internal derangement of right knee Lumbar radicular pain Renal calculi Hypothyroidism (acquired) Anemia Vitamin D deficiency Pure hypercholesterolemia Obesity (BMI 30-39.9) Costochondritis Migraine Allergic rhinitis Diabetes mellitus Occipital neuralgia of left side Chronic pain syndrome Spondylosis of cervical spine without myelopathy Arthritis EKG abnormalities Anal fissure Gastroparesis Hepatomegaly MIO on CPAP Insomnia Anxiety Constipation GERD (gastroesophageal reflux disease) B12 deficiency Proteinuria Type 2 diabetes mellitus with other diabetic kidney complication Hypoglycemia after GI (gastrointestinal) surgery Surgical History H/O colonoscopy H/O gastric bypass History of tubal ligation Hx of lithotripsy History of umbilical hernia Hx of section History of esophagogastroduodenoscopy (EGD) Hx of bilateral breast reduction surgery Hx of cholecystectomy Family History Father Liver cancer Hypertension Diabetes mellitus CVD (cardiovascular disease) Liver failure Mother Hypercholesterolemia Breast cancer Asthma Depression Maternal Grandmother Diabetes mellitus Hypertension Paternal Grandmother Diabetes mellitus Hypertension Social History Household Members: Significant Other Housing: House Alcohol intake: never Patient Tobacco Use Status: Never used Tobacco e-Cigarette/Vaping Use: Never Used Second Hand Smoke Exposure: Yes service: No Current occupational status: disabled Cognitive needs: No Hearing needs: No Vision needs: Yes Female Reproductive History Menstrual Age of Menarche: 11 Office Procedures Post Void Residual Post Residual Void Post Void Residual (PVR): 0 [id number] Void Residual by ultrasound Results Reviewed Results Reviewed: Date of Service: 05/13/24 EXAMINATION: CT ABDOMEN WITHOUT THEN WITH IV CONTRAST HISTORY: N28.1 - Cyst of kidney, acquired COMPARISON: Correlation is made with a renal ultrasound dated 12/20/2022. TECHNIQUE: CT scan of the abdomen was performed before and after the intravenous administration of 85 mL Omnipaque 350. Coronal and sagittal reformatted images were generated and reviewed. Oral contrast material was not administered per department protocol. This CT exam was performed with one or more of the following dose reduction techniques: automated exposure control, adjustment of the mA and/or kV according to patient size, use of iterative reconstruction technique. DLP: 431 mGy-cm ABDOMEN: LOWER CHEST: The visualized lung bases are clear. There is no pleural effusion. CARDIOVASCULATURE: The heart is normal in size. There is no pericardial effusion. LIVER: The liver is normal in size and contour. No liver mass is identified. The hepatic and portal veins are patent. GALLBLADDER / BILE DUCTS: The gallbladder is surgically absent. There is no intra or extrahepatic biliary ductal dilatation. SPLEEN: The spleen is normal in size. No focal splenic lesion is identified. PANCREAS: The pancreas is unremarkable in appearance. ADRENAL GLANDS: Within normal limits. KIDNEYS/RETROPERITONEUM: There are 2 tiny nonobstructing calculi at the upper pole of the left kidney measuring up to 2 mm in size. No right renal calculi are seen. There is a partially duplicated right renal collecting system. There is no hydronephrosis. No renal masses are identified. LYMPH NODES: No abdominal or pelvic lymphadenopathy. VASCULATURE: The abdominal aorta is normal in caliber. MESENTERY/PERITONEUM: No free fluid. No masses. There is no free intraperitoneal gas. STOMACH: There are postsurgical changes involving the stomach. SMALL BOWEL: The surgical changes are noted involving the jejunum. The visualized small bowel is normal in caliber. COLON: The visualized portion of the colon is unremarkable. BONES / SOFT TISSUES: No suspicious bony or soft tissue abnormalities. n IMPRESSION: Left nephrolithiasis as described without evidence of ureteral obstruction. No renal cyst is identified. Assessment & Plan Assessment & Plan (1) OAB (overactive bladder): Code(s): N32.81 - Overactive bladder Category: Medical (2) Nephrolithiasis: Code(s): N20.0 - Calculus of kidney Category: Medical (3) Complex renal cyst: Code(s): N28.1 - Cyst of kidney, acquired Category: Medical Plan Plan 1. Routine follow-up will include an annual ultrasound and urine check in the office, barring any additional complications.: Patient Instructions - Continue following dietary recommendations and maintain high fluid intake. - Resume medications as prescribed, including oxybutynin and vitamin B6. - Attend follow-up for an ultrasound and urine test in one year, unless symptoms develop. - Seek medical advice if experiencing symptoms such as severe pain, fever, or changes in urinary habits. Medications: New pyridoxine (vitamin B6) 100 mg PO DAILY 90 tabs 3RF Refilled oxybutynin chloride ER 10 mg PO DAILY 90 tabs 3RF R35.0 - Frequency of micturition Patient Instructions: The patient had an opportunity to ask questions regarding treatment plan. The patient expressed understanding and agreement with the above treatment plan. The patient is aware they should contact our office by phone for worsening of their current condition or the appearance of new symptoms. Compliance is encouraged with any medications and followup testing that is ordered. It is a privilege to be allowed the opportunity to participate in the urologic care of your patient. If you have any questions or concerns regarding treatment for the above conditions please do not hesitate to contact me. The office telephone contact is [phone]. This note is constructed in part using voice recognition software. While every effort has been made to ensure accuracy lean manufacturing leader errors may have been included. Yours sincerely, Michelle Schulte MD Scribe Plan - Not visible on output: Patient was informed and verbally consented to the use of an ambient scribe for clinic note documentation during this visit. Coding Level of Care Code Est Pt Level 4 (17807) Diagnoses OAB (overactive bladder) N32.81 Nephrolithiasis N20.0 Complex renal cyst N28.1 CPT Codes Post Residual Void - PVR CPT Code: 61985-Vhmn Void Residual by ultrasound ([id number])
--- OUTSIDE RECORDS SUMMARY | 2024-06-18 14:43 | XMS_ITS | Encounter Summary ---
Author Organization [facility] Address [address] [place] [address] Care Team Providers Care Plant And Machinery Valuer Name Role Phone Abida Lombardi MD Primary Care Provider Juve Montelongo MD Primary Care Provider Wally vickers Encounter Details Date Type Department Care Team Description 08/19/2020 Orders Only Gastroenterology - [address] [place] [address] Chalo Owens MD Dysphagia, unspecified [...] type documented in this encounter Care Teams Plant And Machinery Valuer Relationship Specialty Start Date End Date Abida Lombardi MD PCP - General Internal Medicine 04/14/19 10/12/20 Juve Crawford MD PCP - General Internal Medicine 10/13/20 documented as of this encounter
--- OUTSIDE RECORDS SUMMARY | 2024-06-18 14:43 | XMS_ITS | Encounter Summary ---
Author Organization [facility] Address [address] [place] [address] Care Team Providers Care Automobile Mechanic Helper Name Role Phone Jimmy Page MD Primary Care Provider Abida Hernández MD Primary Care Provider Juve Montelongo MD Primary Care Provider Wally vickers Encounter Details Date Type Department Care Team Description 07/26/2017 Release of Information Medical Records [address] [place] [id number] Abstract, Provider Social History Tobacco Use Types [...] on filedocumented in this encounter Care Teams Automobile Mechanic Helper Relationship Specialty Start Date End Date Jimmy Page MD PCP - General Internal Medicine 06/08/17 04/13/19 Abida Lombardi MD PCP - General Internal Medicine 04/14/19 10/12/20 Juve Crawford MD PCP - General Internal Medicine 10/13/20 documented as of this encounter
--- OUTSIDE RECORDS SUMMARY | 2024-06-18 14:43 | XMS_ITS | Encounter Summary ---
Author Organization [facility] Address [address] [place] [address] Care Team Providers Care Pc Installation Engineer Name Role Phone Jimmy Page MD Primary Care Provider Abida Hernández MD Primary Care Provider Juve Montelongo MD Primary Care Provider Wally vickers Encounter Details Date Type Department Care Team Description 02/23/2018 Release of Information Medical Records [address] [place] [id number] Abstract, Provider Social History Tobacco Use Types [...] on filedocumented in this encounter Care Teams Pc Installation Engineer Relationship Specialty Start Date End Date Jimmy Page MD PCP - General Internal Medicine 06/08/17 04/13/19 Abida Lombardi MD PCP - General Internal Medicine 04/14/19 10/12/20 Juve Crawford MD PCP - General Internal Medicine 10/13/20 documented as of this encounter
--- OUTSIDE RECORDS SUMMARY | 2024-06-18 14:43 | XMS_ITS | Encounter Summary ---
Author Organization [facility] Address [address] [place] [address] Care Team Providers Care Rigger Up Name Role Phone Abida Lombardi MD Primary Care Provider Juve Montelongo MD Primary Care Provider Wally vickers Reason for Visit * Reason Onset Date Comments APPOINTMENT 09/20/2020 Encounter Details Date Type Department Care Team Description 09/20/2020 Telephone Gastroenterology - [address] [address] Chalo Owens MD APPOINTMENT Social [...] chest pain Please advise Call pt at [phone] Thanks documented in this encounter Plan of Treatment Not on file documented as of this encounter Visit Diagnoses Not on filedocumented in this encounter Care Teams Rigger Up Relationship Specialty Start Date End Date Abida Lombardi MD PCP - General Internal Medicine 04/14/19 10/12/20 Juve Crawford MD PCP - General Internal Medicine 10/13/20 documented as of this encounter
--- OUTSIDE RECORDS SUMMARY | 2024-06-18 14:43 | XMS_ITS | Encounter Summary ---
Author Organization [facility] Address [address] [place] [address] Care Team Providers Care Talent Associate Name Role Phone Abida Lombardi MD Primary Care Provider Juve Montelongo MD Primary Care Provider Wally vickers Encounter Details Date Type Department Care Team Description 05/10/2020 Old Medical Records Medical Records [address] [place] [address] Abstract, Provider Social History Tobacco Use Types [...] on filedocumented in this encounter Care Teams Talent Associate Relationship Specialty Start Date End Date Abida Lombardi MD PCP - General Internal Medicine 04/14/19 10/12/20 Juve Crawford MD PCP - General Internal Medicine 10/13/20 documented as of this encounter
--- OUTSIDE RECORDS SUMMARY | 2024-06-18 14:44 | XMS_ITS | Clinical Summary ---
Author Organization [address] [facility] Address [address] [place] [address] Phone Care Team Providers Care Preassembler And Inspector Name Role Phone Juve Crawford MD Primary [...] AM EST Office Visit Bariatric Surgery - [address] [address] Lluvia Rosales MD Class 1 obesity due to excess calories with body mass index (BMI) of 34.0 to 34.9 in adult, unspecified whether serious comorbidity present (Primary Dx); Postgastrectomy malabsorption from Last 3 Months Surgical History Surgery Date Site/Laterality Comments OTHER SURGICAL HISTORY PROCEDURE: MO LAPS GSTR [...] AM EDT Office Visit Bariatric Surgery - [place] [address] [facility] [address] [place] [address] Lluvia Rosales MD [address] [facility] [address] [place] [address] Health Maintenance Due Date Last Done Comments [...] MD LAB BLOOD ORDERABLES Final R esult [facility] [address] [place] [address], [place] [phone] * Copper, serum (03/26/2024 10:23 AM EST) Copper 1229 810 - 1990 ug/L 03/31/2024 6:32 AM EST [facility] Comment: Copper values may be elevated to twice the normal levels in . Elevated results may be due to sample collected in a non-certified trace element-free tube. This test was developed and the performance characteristics determined by [facility]. It has not been cleared or approved by the FDA. The laboratory is regulated under CLIA as qualified to perform high-complexity testing. This test is used for patient testing purposes. It should not be regarded as investigational or for research. Test performed at [facility], [address], [place] ??[address] ? [phone] Supriya Rouse MD, PhD - Bid Writer Blood Venous blood specimen / Unknown Venipuncture / Unknown 03/26/2024 10:23 AM EST 03/26/2024 10:23 AM EST Lluvia Rosales MD LAB BLOOD ORDERABLES Final R esult [facility] [address] [place] [address] * (ABNORMAL) Zinc (03/26/2024 10:23 AM EST) Zinc 57(L) 60 - 130 ug/dL 03/30/2024 9:43 AM EST [facility] Comment: Elevated results may be due to sample collected in a non-certified trace element-free tube. This test was developed and the performance characteristics determined by [facility]. It has not been cleared or approved by the FDA. The laboratory is regulated under CLIA as qualified to perform high-complexity testing. This test is used for patient testing purposes. It should not be regarded as investigational or for research. Test performed at [facility], [address], [place] ??[address] ? [phone] Supriya Rouse MD, PhD - Bid Writer Blood Venous blood specimen / Unknown Venipuncture / Unknown 03/26/2024 10:23 AM EST 03/26/2024 10:23 AM EST Lluvia Rosales MD LAB BLOOD ORDERABLES Final R esult [facility] [address] [place] [address] * Vitamin A (03/26/2024 10:23 AM EST) Vitamin A 41 38 - 106 ug/dL 03/31/2024 6:40 AM EST [facility] Comment: This test was developed and the performance characteristics determined by [facility]. It has not been cleared or approved by the FDA. The laboratory is regulated under CLIA as qualified to perform high-complexity testing. This test is used for patient testing purposes. It should not be regarded as investigational or for research. Test performed at [facility], [address], [place] ??[address] ? [phone] Supriya Rouse MD, PhD - Bid Writer Blood Venous blood specimen / Unknown Venipuncture / Unknown 03/26/2024 10:23 AM EST 03/26/2024 10:23 AM EST Lluvia Rosales MD LAB BLOOD ORDERABLES Final R esult Performing Organization Address [facility] Co de Phone Number [facility] [address] [place] [address] * Selenium serum (03/26/2024 10:23 AM EST) Selenium 149 63 - 160 mcg/L 04/05/2024 11:38 PM EST [facility] Comment: (Note) This test was developed and its analytical performance characteristics have been determined by [employer]. It has not been cleared or approved by the FDA. This assay has been validated pursuant to the CLIA regulations and is used for clinical purposes. [facility] [address] [facility] [address] [facility] [address] Chan Francois MD, PhD Test Performed at: [facility] [address] [facility] [address], [address] [place], [place] ??[address] ? Alec Francois MD, PhD Blood Venous blood specimen / Unknown Venipuncture / Unknown 03/26/2024 10:23 AM EST 03/26/2024 10:23 AM EST us Lluvia Rosales MD LAB BLOOD ORDERABLES Final R esult [facility] [address] [place] [address] * Vitamin D 25 hydroxy (03/26/2024 10:23 AM EST) Vit D, 25-Hydroxy 31.6 30.0 - 80.0 ng/mL LAB CHEMISTRY METHOD 03/26/2024 3:04 PM EST [facility] Blood Venous blood specimen / Unknown Venipuncture / Unknown 03/26/2024 10:23 AM EST 03/26/2024 10:23 AM EST Lluvia Rosales MD LAB BLOOD ORDERABLES Final R esult [facility] [address] [place] [address], * Vitamin B1 (03/26/2024 10:23 AM EST) [facility] Vitamin B1 Whole Blood 75 38 - 122 ug/L 03/31/2024 9:38 AM EST [facility] Comment: This test was developed and the performance characteristics determined by [facility]. It has not been cleared or approved by the FDA. The laboratory is regulated under CLIA as qualified to perform high-complexity testing. This test is used for patient testing purposes. It should not be regarded as investigational or for research. Test performed at [facility], [address] , [place], [place] ??[address] ? [phone] Supriya Rouse MD, PhD - Bid Writer Blood Venous blood specimen / Unknown Venipuncture / Unknown 03/26/2024 10:23 AM EST 03/26/2024 10:23 AM EST us Lluvia Rosales MD LAB BLOOD ORDERABLES Final R esult [facility] [address] [place] [address] * Folate (03/26/2024 10:23 AM EST) [facility] Folate 15.5 2.8 - 17.0 ng/ml LAB CHEMISTRY METHOD 03/26/2024 3:36 PM EST [facility] Blood Venous blood specimen / Unknown Venipuncture / Unknown 03/26/2024 10:23 AM EST 03/26/2024 10:23 AM EST us Lluvia Rosales MD LAB BLOOD ORDERABLES Final R esult Performing Organization Address [facility] Co de Phone Number [facility] [address] [place] [address], [place] [phone] * (ABNORMAL) Vitamin B12 (03/26/2024 10:23 AM EST) [facility] Vitamin B-12 232(L) 250 - 900 pcg/mL LAB CHEMISTRY METHOD 03/26/2024 3:36 PM EST [facility] Blood Venous blood specimen / Unknown Venipuncture / Unknown 03/26/2024 10:23 AM EST 03/26/2024 10:23 AM EST us Lluvia Rosales MD LAB BLOOD ORDERABLES Final R esult Performing Organization Address City/[facility]/ZIP Co de Phone Number [facility] [address] [place] [address], [place] [phone] * Calcium (03/26/2024 10:23 AM EST) [facility] Calcium 9.1 8.5 - 10.5 mg/dL LAB CHEMISTRY METHOD 03/26/2024 3:36 PM EST [facility] Blood Venous blood specimen / Unknown Venipuncture / Unknown 03/26/2024 10:23 AM EST 03/26/2024 10:23 AM EST Lluvia Rosales MD LAB BLOOD ORDERABLES Final R esult [facility] [address] [place] [address], [place] [phone] * Albumin (03/26/2024 10:23 AM EST) Albumin 3.7 3.2 - 5.0 g/dL LAB CHEMISTRY METHOD 03/26/2024 2:57 PM EST [facility] Blood Venous blood specimen / Unknown Venipuncture / Unknown 03/26/2024 10:23 AM EST 03/26/2024 10:23 AM EST us Lluvia Rosales MD LAB BLOOD ORDERABLES Final R esult [facility] [address] [place] [address], [place] [phone] from Last 3 Months Insurance MEDICAID - [place] MEDICARE Care Teams Preassembler And Inspector Relationship Specialty Start Date End Date Juve Crawford MD [address] [place] [address] Dr [address] [place] PCP - General Internal Medicine 10/13/20
--- OUTSIDE RECORDS SUMMARY | 2024-06-18 14:44 | XMS_ITS | Encounter Summary ---
Author Organization [facility] Address [address] [place] [address] Care Team Providers Care Pharmacy Ancillary Name Role Phone Abida Lombardi MD Primary Care Provider Juve Montelongo MD Primary Care Provider Wally vickers Encounter Details Date Type Department Care Team Description 09/06/2020 Hospital Medical Records [address] [place] [address] Claribel Singleton MD [address] [place] [address] Social History Tobacco Use Types Packs/Day Years [...] on filedocumented in this encounter Care Teams Pharmacy Ancillary Relationship Specialty Start Date End Date Abida Lombardi MD PCP - General Internal Medicine 04/14/19 10/12/20 Juve Crawford MD PCP - General Internal Medicine 10/13/20 documented as of this encounter
== END 2024-06-18 14:57 | disposition home or self-care (01) ==
LOC: HO.HUSH 13:28
PROVIDERS: PCP Internal Medicine; Visit Provider Urology
DX: Z13.9 Encounter for screening, unspecified (principal)

== ENCOUNTER → 2024-06-18 13:28 | Outpatient (BNVA) | payer MEDICARE, MEDICAID, SELFPAY | PROVIDERS: PCP Internal Medicine; Visit Provider Urology | DX: N20.0 Calculus of kidney (principal); N32.81 Overactive bladder; N28.1 Cyst of kidney, acquired; R35.0 Frequency of micturition | CPT/HCPCS: 51798; 81003; 99212 ==

== ENCOUNTER 2024-07-20 07:16 | Outpatient (REF) | payer MEDICARE, MEDICAID, SELFPAY ==
--- OUTSIDE RECORDS SUMMARY | 2024-07-20 07:18 | XMS_ITS | Clinical Summary ---
Author Organization [facility] Address [address] [place] [address] Phone Care Team Providers Care Deicer Repairer Name Role Phone Juve Crawford MD Primary [...] (one) time each day. 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 Surgical History Surgery Date Site/Laterality Comments OTHER SURGICAL HISTORY PROCEDURE: [place] LAPS GSTR RSTCV PX W/BYP KAYLAH-EN-Y LIMB <150 CM Medical History Medical History Date Comments Diabetes mellitus (CMS/HCC V24, CMS/HCC V28) DX:Diabetes mellitus (HCC) Hyperchloremia DX:Hyperchloremi a Migraine DX:Migraine [...] AM EDT Office Visit Bariatric Surgery - [place] [address] [facility] [address] [place] [phone] Lluvia Rosales MD [address] [facility] [address] [place] [address] Health Maintenance Due Date Last Done Comments [...] Sugar Control Test (HGBA1C) 02/28/2022 COVID-19 Vaccine () 11/17/2023 05/16/2022, 08/16/2020, 07/26/2020 DTaP,Tdap,and Td Vaccines (11 [...] age to complete this topic Meningococcal B Vaccine Aged Out No l onger eligible based on patient's age to complete this topic RSV Immunization Patients Under 20 months Aged Out No longer eligible based on patient's age to complete this topic Varicella Vaccines Aged Out No longer eligible based on patient's age to complete this topic Insurance MEDICAID - [place] MEDICARE Care Teams Deicer Repairer Relationship Specialty Start Date End Date Juve Crawford MD [address] [place] [address] [address] EBONI Byers PCP - General Internal Medicine 10/13/20
--- OUTSIDE RECORDS SUMMARY | 2024-07-20 07:18 | XMS_ITS | Clinical Summary ---
Author Organization [employer] Address [address] [facility] [address] [place] [address] Care Team Providers Care Salesperson Children'S Shoes Name Role Phone Unavailable Primary Care Provider [...] patient's age to complete this topic Insurance [facility] FULL
[2024-07-20 07:31] LABS: MANUAL DIFF FLAG NO
[2024-07-20 07:50] LABS: Appearance Urine Clear; Color Urine Yellow; Glucose Urine UA Negative (Negative); Leukocyte Esterase Urine Trace (Negative); Nitrite Urine Negative (Negative); PH 7.5 (5.0-9.0); Specific Gravity - Urine 1.025 (1.005-1.025); UMIC TRIGGER UACC YES; Urine Blood Trace (Negative); Urine Ketones Trace mg/dL (Negative); Urine Protein Negative (Neg-Trace)
[2024-07-20 07:51] LABS: Basophils Percent Auto 0.4 % (0-2); Eosinophils Absolute Auto 0.2 X10*3/uL (0.0-0.4); Eosinophils Percent Auto 3.2 % (0-4); Hematocrit 34.5 % (37.0-47.0); Hemoglobin 11.3 g/dl (12.0-16.0); Imm Gran Abs Auto 0.02 X10*3/uL (0.00-0.03); Imm Gran Pct Auto 0.3 % (0.0-0.4); Lymphocytes Absolute Auto 1.7 X10*3/uL (1.2-4.9); Lymphocytes Percent Auto 22.2 % (20-40); Mean Corpuscular HGB Conc 32.8 g/dl (31.0-35.0); Mean Corpuscular Hemoglobin 27.8 pg (27.0-33.0); Mean Corpuscular Volume 84.8 fL (80.0-98.0); Monocytes Absolute Auto 0.9 X10*3/uL (0.1-1.2); Monocytes Percent Auto 11.6 % (2-11); Neutrophils Absolute Auto 4.8 x10*3/uL (2.0-8.3); Neutrophils Percent Auto 62.3 % (45-73); Platelet Count 339 X10*3/uL (160-400); Red Blood Count 4.07 X10*6/uL (4.20-5.50); Red Cell Distribution Width 13.2 % (11.0-16.0); White Blood Count 7.6 X10*3/uL (4.8-10.8)
[2024-07-20 07:53] LABS: Bacteria Urine None Seen (None Seen); Squamous Epithelial Cell Urine 0-2 /HPF (0-2); WBC Urine 0-5 /HPF (0-5)
[2024-07-20 07:57] LABS: Estimated Average Glucose 111 mg/dL; Hemoglobin A1C 114.1354 umol/L; Hemoglobin A1c % 5.5 % (<6.0); Total Hemoglobin (HGBA1C) 3091.9365 umol/L
[2024-07-20 08:18] LABS: Creatinine Urine 185.08 mg/dL
[2024-07-20 08:30] LABS: Alanine Aminotransferase 16 U/L (0-31); Albumin Level 4.1 g/dL (3.5-5.0); Alkaline Phosphatase 76 U/L (39-117); Anion Gap 10 (12-20); Aspartate Amino Transferase 40 U/L (5-31); Bilirubin Total 0.4 mg/dL (0.0-1.0); Blood Urea Nitrogen 18 mg/dL (9-16); Carbon Dioxide 21 mmol/L (22-29); Chloride 112 mmol/L (96-108); Cholesterol 110 mg/dL (<200); Estimated Glomerular Filt Rate > 60; Glucose Fasting 95 mg/dL (60-99); HDL Cholesterol 48 mg/dL (>40); LDL Cholesterol Calculated 48 mg/dL (<100); Potassium 3.9 mmol/L (3.3-5.1); Sodium 139 mmol/L (135-145); Total Protein 7.5 g/dL (6.5-8.0); Triglycerides 70 mg/dL (<150)
[2024-07-20 08:47] LABS: Free T4 (Free Thyroxine) 1.18 ng/dL (0.71-1.85); Thyroid Stimulating Hormone 1.51 uIU/mL (0.32-4.0); Vitamin D 25-OH Total 31.7 ng/mL (>30)
[2024-07-20 08:52] LABS: Folate 14.1 ng/mL (> or = 4.0); Vitamin B12 290 pg/mL (200-900)
== END 2024-07-20 07:17 | disposition home or self-care (01) ==
LOC: HO.LAB 07:16
PROVIDERS: PCP Internal Medicine; Visit Provider Internal Medicine
DX: D64.9 Anemia, unspecified (principal); E78.00 Pure hypercholesterolemia, unspecified; E03.9 Hypothyroidism, unspecified; E53.8 Deficiency of other specified B group vitamins; E55.9 Vitamin D deficiency, unspecified; E11.9 Type 2 diabetes mellitus without complications
CPT/HCPCS: 36415; 80053; 80061; 81001; 82043; 82306; 82570; 82607; 82746; 83036; 84439; 84443; 85025

== ENCOUNTER 2024-07-24 08:46 | Outpatient (AMB) | payer MEDICARE, MEDICAID, SELFPAY ==
--- OUTSIDE RECORDS SUMMARY | 2024-07-24 08:58 | XMS_ITS | Clinical Summary ---
Author Organization [address] [facility] Address [address] [place] [address] Phone Care Team Providers Care Dog Warden Name Role Phone Juve Crawford MD Primary Care Provider [phone] Allergies Active Allergy Reactions Criticality Noted Date [...] Date Site/Laterality Comments OTHER SURGICAL HISTORY PROCEDURE: [place] LAPS GSTR RSTCV PX W/BYP KAYLAH-EN-Y LIMB [...] AM EDT Office Visit Bariatric Surgery - [place] [address] [facility] [address] [place] [phone] Lluvia Rosales MD [address] [facility] [address] [place] [address] Health Maintenance Due Date Last Done Comments [...] Insurance MEDICA[place] - [place]ICARE Care Teams Dog Warden Relationship Specialty Start Date End Date Juve Crawford MD [address] [place] [address] [address] EBONI Byers PCP - General Internal Medicine 10/13/20
--- OUTSIDE RECORDS SUMMARY | 2024-07-24 08:58 | XMS_ITS | Encounter Summary ---
Author Organization [facility] Address [address] [place] [address] Care Team Providers Care Gear Coding Machine Operator Name Role Phone Abida Lombardi MD Primary Care Provider Juve Montelongo MD Primary Care Provider Wally vickers Encounter Details Date Type Department Care Team Description 08/19/2020 Orders Only Gastroenterology - [address] [place] [address] Chalo Owens MD Dysphagia, unspecified [...] type documented in this encounter Care Teams Gear Coding Machine Operator Relationship Specialty Start Date End Date Abida Lombardi MD PCP - General Internal Medicine 04/14/19 10/12/20 Juve Crawford MD PCP - General Internal Medicine 10/13/20 documented as of this encounter
--- OUTSIDE RECORDS SUMMARY | 2024-07-24 08:58 | XMS_ITS | Encounter Summary ---
Author Organization [facility] Address [address] [place] [address] Care Team Providers Care Date Puller Name Role Phone Jimmy Page MD Primary Care Provider Abida Hernández MD Primary Care Provider Juve Montelongo MD Primary Care Provider Wally vickers Encounter Details Date Type Department Care Team Description 07/25/2017 Transfer Records Medical Records [address] [place] [address] Abstract, Provider Social History Tobacco Use Types [...] on filedocumented in this encounter Care Teams Date Puller Relationship Specialty Start Date End Date Jimmy Page MD PCP - General Internal Medicine 06/08/17 04/13/19 Abida Lombardi MD PCP - General Internal Medicine 04/14/19 10/12/20 Juve Crawford MD PCP - General Internal Medicine 10/13/20 documented as of this encounter
--- OUTSIDE RECORDS SUMMARY | 2024-07-24 08:58 | XMS_ITS | Clinical Summary ---
Author Organization [employer] Address [address] [facility] [address] [place] [address] Care Team Providers Care Aboriginal Education Teacher Name Role Phone Unavailable Primary Care Provider [...] patient's age to complete this topic Insurance [facility] LIMITED [facility] FULL
[2024-07-24 09:04] VITALS: BP 110/68; PULSE 64; O2SAT 98; BMI 35.4
--- NOTE | 2024-07-24 09:04 | MHC.PC.OV ---
Vital Signs 07/24/24 09:04 Height 5 ft Weight 181 lb 4 oz BMI 35.4 BP 110/68 Blood Pressure Location Lt brachial Position Sitting Pulse 64 Pulse Source Pulse Oximeter Pulse Oximetry (%) 98 Oxygen Delivery Method Room Air Intake Visit Reasons: 3 Months f/u Supervisor [employer] Required: No Accompanied by: Self / Same As Patient Allergies lisinopril [LISINOPRIL] Allergy (Severe, Verified 07/24/24 09:32) ANAPYHLAXIS, swelling metformin [METFORMIN] Allergy (Severe, Verified 07/24/24 09:32) ANAPHYLAXIS, diarrhea sumatriptan [From IMITREX] Allergy (Severe, Verified 07/24/24 09:32) ANAPHYLAXIS, sedation Medication List - Last Reconciled 07/24/24 by Juve Crawford MD acarbose 100 mg PO TID alcohol swabs (Alcohol Pads) 1 pad topical TID 30 days alprazolam 1 mg PO TID PRN blood sugar diagnostic (FreeStyle Lite Strips) test blood sugar once a day as instructed - frequent low blood sugar readings blood-glucose meter (FreeStyle Lite Meter kit) As directed once a day cetirizine 10 mg PO DAILY PRN 90 days clonidine HCl 0.1 mg PO DAILY cyanocobalamin (vitamin B-12) 500 mcg sublingual daily, saturday - saturday; 30 days dicyclomine 20 mg PO QID PRN fluticasone propionate 50 mcg/actuation 1 spray intranasal DAILY ibuprofen 800 mg PO TID PRN 30 days lancets (FreeStyle Lancets) test blood sugar once as instructed - frequent LOW blood sugar readings levothyroxine 50 mcg PO DAILY 90 days linaclotide (Linzess) 290 mcg PO DAILY 30 days melatonin 5 - 10 mg PO BEDTIME PRN metoclopramide HCl (Reglan) 10 mg PO QIDACHS oxybutynin chloride ER 10 mg PO DAILY pyridoxine (vitamin B6) 100 mg PO DAILY rosuvastatin 5 mg PO DAILY 90 days simethicone 180 mg PO QID 30 days topiramate 100 mg PO BEDTIME 90 days tramadol 1 tablet 1 to 2 times a day orally ONLY NEEDED for SEVERE PAIN; 30 days Tobacco use date assessed: 07/24/24 Dental Screening Dental Screen Date: 07/24/24 Did you have a dental visit in the last 12 months?: No Did you have a dental problem in the last 6 months where you did not have access to dental care?: No Was dental information given to patient?: Patient has dentist HPI 3 Months f/u HPI Details Patient comes in today for her follow up visit States that she feels okay She denies any headaches or dizziness Denies any chest pains, no increased SOB No nausea/vomiting, no abdominal pain No change in bowel habits noted States that her chronic joint pains remain adequately controlled on her current Rx Needs her Ibuprofen Rx refilled She had her follow up labs done a few days ago - to discuss her results [facility] Medical History Vulvovaginitis Vulvar abscess Lumbar degenerative disc disease Foreign body in throat Lumbar back pain with radiculopathy affecting right lower extremity Rhinitis ASCUS of cervix with negative high risk HPV Internal derangement of right knee Lumbar radicular pain Renal calculi Hypothyroidism (acquired) Anemia Vitamin D deficiency Pure hypercholesterolemia Obesity (BMI 30-39.9) Costochondritis Migraine Allergic rhinitis Diabetes mellitus Occipital neuralgia of left side Chronic pain syndrome Spondylosis of cervical spine without myelopathy Arthritis EKG abnormalities Anal fissure Gastroparesis Hepatomegaly MIO on CPAP Insomnia Anxiety Constipation GERD (gastroesophageal reflux disease) B12 deficiency Proteinuria Type 2 diabetes mellitus with other diabetic kidney complication Hypoglycemia after GI (gastrointestinal) surgery Surgical History H/O colonoscopy H/O gastric bypass History of tubal ligation Hx of lithotripsy History of umbilical hernia Hx of section History of esophagogastroduodenoscopy (EGD) Hx of bilateral breast reduction surgery Hx of cholecystectomy Family History Father Liver cancer Hypertension Diabetes mellitus CVD (cardiovascular disease) Liver failure Mother Hypercholesterolemia Breast cancer Asthma Depression Maternal Grandmother Diabetes mellitus Hypertension Paternal Grandmother Diabetes mellitus Hypertension Social History Household Members: Significant Other Housing: House Alcohol intake: never Patient Tobacco Use Status: Never used Tobacco e-Cigarette/Vaping Use: Never Used Second Hand Smoke Exposure: Yes service: No Current occupational status: disabled Cognitive needs: No Hearing needs: No Vision needs: Yes Female Reproductive History Menstrual Age of Menarche: 11 Questionnaire PHQ-9 Over the last 2 weeks, how often have you been bothered by any of the following problems? 1. Little interest or pleasure in doing things: not at all 2. Feeling down, depressed, or hopeless: not at all 3. Trouble falling or staying asleep, or sleeping too much: not at all 4. Feeling tired or having little energy: not at all 5. Poor appetite or overeating: not at all 6. Feeling bad about yourself - or that you are a failure or have let yourself or your family down: not at all 7. Trouble concentrating on things, such as reading the newspaper or watching television: not at all 8. Moving or speaking so slowly that other people could have noticed. Or the opposite - being so fidgety or restless that you have been moving around a lot more than usual: not at all 9. Thoughts that you would be better off or of hurting yourself in some way: not at all Total score: 0 Depression Screening Interpretation: Negative Depression Screening Done: Yes 49524 - PHQ-9 Billing: Yes Source: Developed by Drs. Arthur Duran, Amira Brownlee, Nikos Pelayo and colleagues, with an educational beatriz from [employer]. Thrive Questionnaire Date Thrive assessed: 07/24/24 I am a: Patient What is your living situation today?: I have a steady place to live Within the past 12 months, did the food you bought not last and you didn't have the money to get more?: Often true Within the past 12 months, did you worry whether your food would run out before you got money to buy more?: Often true Do you have trouble paying for medicines?: No Do you have trouble getting transportation to medical appointments?: No Do you have trouble paying your heating and electricity bill?: No Do you have trouble taking care of your child, family member or friend?: No Do you have trouble with day-to-day activities such as bathing, preparing meals, shopping, managing finances, etc.?: No Are you currently unemployed and looking for a job?: No Are you interested in more education?: No Please select the resources that you would like help with: None Currently or been in a relationship where the following occur: No concerns reported THRIVE Score: 2 AUDIT C Alcohol Use Questionnaire (AUDIT-C) 1. How often do you have a drink containing alcohol?: Never 3. How often do you have six or more drinks on one occasion?: Never Total Score: 0 Score Reviewed/Action Taken: Yes SUSAN-7 AMB Questionnaire SUSAN-7 Date SUSAN - 7 assessed: 07/24/24 Feeling nervous, anxious, or on edge: 0 = Not at all Not being able to stop or control worryin = Not at all Worrying too much about different things: 0 = Not at all Trouble relaxin = Not at all Being so restless that it is hard to sit still: 0 = Not at all Becoming easily annoyed or irritable: 0 = Not at all Feeling afraid as if something awful might happen: 0 = Not at all Total SUSAN-7 score (0-4 normal; 5-9 mild; 10-14 moderate; 15-21 severe): 0 Source: Developed by Drs. Arthur Duran, Amira Brownlee, Nikos Pelayo and colleagues, with an educational beatriz from [employer]. Review of Systems Const Denies chills, Denies fatigue, Denies fever(s) and Denies headache(s) (controlled) ENT Denies dysphagia, Denies dizziness, Denies otalgia, Denies headache(s) (controlled), Reports neck pain, Denies odynophagia and Denies sore throat Card Denies chest pain, Denies lightheadedness, Denies palpitations and Denies dyspnea Resp Denies chest congestion, Denies cough and Denies dyspnea GI Denies abdominal pain, Reports constipation (chronic), Denies dysphagia, Denies diarrhea, Denies nausea, Denies odynophagia and Denies vomiting Denies difficulty voiding, Denies nocturia, Denies dysuria and Denies urinary urgency Musc Reports back pain (chronic), Reports arthralgias (right scapular area), Reports neck pain, Reports radiating pain into limb (down right leg and into the foot; into the right arm recently) and Denies tingling Skin/Breast Denies rash Neuro Denies dizziness, Denies headache(s) (controlled) and Denies tingling Endo Denies fatigue and Denies palpitations Physical exam (Primary Care) Vital Signs: Last Vital Signs Pulse 64 07/24/24 09:04 BP 110/68 07/24/24 09:04 Pulse Ox 98 07/24/24 09:04 Oxygen Delivery Method Room Air 07/24/24 09:04 BMI result Body Mass Index 35.4 Tobacco/Smoking Status: Tobacco use Status Tobacco use date assessed 07/24/24 07/24/24 09:10 Patient Tobacco Use Status Never used Tobacco 07/24/24 09:10 e-Cigarette/Vaping Use Never Used 07/24/24 09:10 PHQ-9: PHQ-9 Score PHQ-9: Total score 0 07/24/24 09:10 Depression Screening Interpretation: Negative Thrive Assessment: Date of Thrive Assessment Date Thrive assessed 07/24/24 07/24/24 09:10 Currently or been in a relationship where the following occur: No concerns reported Const General: no acute distress and alert HENMT Ears: TM's normal bilaterally and EAC's normal Throat: Yes posterior oropharynx normal and Yes tonsils normal (no TP congestion noted) Neck Neck: Yes supple and No lymphadenopathy Thyroid: Thyroid normal Resp Auscultation: clear to auscultation bilaterally, no rales and no wheezes Cardio Rate: regular rate Rhythm: regular rhythm Heart sounds: no murmurs GI Palpation (GI): Soft to palpation and nontender Auscultation: normal bowel sounds General: Yes no CVA tenderness Back/Spine/Pelvis Back: no CVA tenderness Cervical Spine: Cervical spine tenderness Thoracic/Lumbar Spine: paraspinal muscle tenderness on the right in the upper lumbar, in the mid lumbar and in the lower lumbar and lumbar spinal tenderness Skin Rashes: no rashes Extrem General: Yes no clubbing, cyanosis or edema Right upper extremity: shoulder/upper arm Details: tenderness Location: of the scapula and normal ROM (but increased radicular symptoms when she raises her arm ); no swelling Results Reviewed Results Reviewed: Laboratory Tests 07/20/24 07:30 WBC 7.6 Hgb 11.3 L Hct 34.5 L Plt Count 339 Sodium 139 Potassium 3.9 Creatinine 0.75 Estimated GFR > 60 Fasting Glucose 95 Hemoglobin A1c % 5.5 Calcium 9.0 AST 40 H ALT 16 Triglycerides 70 Cholesterol 110 LDL Cholesterol, Calc 48 HDL Cholesterol 48 Vitamin B12 290 25-OH Vitamin D Total 31.7 TSH 1.51 Free T4 1.18 Ur Specific [place] 1.025 Urine Protein Negative Urine Glucose (UA) Negative Urine Blood Trace H Urine Nitrite Negative Ur Leukocyte Esterase Trace H Microalb/Creat Ratio 7.0 Coding Level of Care Code Est Pt Level 4 (86848) Complex EM visit Add On G2211 Diagnoses Pure hypercholesterolemia E78.00 Type 2 diabetes mellitus without complication, without long-term current use of insulin E11.9 Diabetes mellitus type: type 2 Diabetes mellitus mcc insulin use: without termite control service representative use Diabetes mellitus complication status: without complication Hypothyroidism (acquired) E03.9 Migraine without status migrainosus, not intractable, unspecified migraine type G43.909 Migraine type: unspecified Status migrainosus presence: without status migrainosus Intractability: not intractable Chronic idiopathic constipation K59.04 Gastroesophageal reflux disease without esophagitis K21.9 Esophagitis presence: without esophagitis Anemia, unspecified type D64.9 Anemia type: unspecified type B12 deficiency E53.8 Vitamin D deficiency E55.9 Allergic rhinitis, unspecified seasonality, unspecified trigger J30.9 Allergic rhinitis trigger: unspecified Allergic rhinitis seasonality: unspecified Degeneration of intervertebral disc of lumbar region with discogenic back pain M51.360 Disc-related pain type: discogenic back pain only Spondylosis of cervical spine without myelopathy M47.812 Pain of right scapula M89.8X1 Insomnia, unspecified type G47.00 Insomnia type: unspecified Anxiety F41.9 Obesity (BMI 30-39.9) E66.9 Additional Codes PHQ-9 - 06029 - PHQ-9 Billing: Yes ([id number]) Assessment & Plan Assessment & Plan (1) Pure hypercholesterolemia: Code(s): E78.00 - Pure hypercholesterolemia, unspecified Category: Medical Plan: Results of her labs done a few days ago reviewed and discussed with patient Reinforced low cholesterol diet Continue Rosuvastatin 5 mg QD Will recheck her labs and fasting lipids in 3 months for follow up (2) Diabetes mellitus: Code(s): E11.9 - Type 2 diabetes mellitus without complications Category: Medical Qualifiers: Diabetes mellitus type: type 2 Diabetes mellitus termite control service representative insulin use: without mcc use Diabetes mellitus complication status: without complication Qualified Code(s): E11.9 - Type 2 diabetes mellitus without complications Plan: Her HgbA1c remains normal at 5.5% on her labs done last week; was previously at 5.5% a few months ago - goal is <6.5% Reinforced diabetic diet Continue Acarbose 100 mg TID Follow up with endocrinology as needed - she has reportedly been advised by endocrinology that since her diabetes has been very well controlled, she can just follow up with her PCP and see them only on an as-needed basis (3) Hypothyroidism (acquired): Code(s): E03.9 - Hypothyroidism, unspecified Category: Medical Plan: Her TFTs remain normal on her recent labs Continue Levothyroxine 50 mcg QD Will continue to monitor her TFTs regularly (4) Migraine: Code(s): G43.909 - Migraine, unspecified, not intractable, without status migrainosus Category: Medical Qualifiers: Migraine type: unspecified Status migrainosus presence: without status migrainosus Intractability: not intractable Qualified Code(s): G43.909 - Migraine, unspecified, not intractable, without status migrainosus Plan: Better controlled lately - states that her migraine headaches have been stable on her current prophylactic Rx Reinforced avoidance of potential migraine triggers Continue Topiramate 100 mg Q HS (5) Chronic idiopathic constipation: Code(s): K59.04 - Chronic idiopathic constipation Category: Medical Plan: Reinforced increased oral fluids and dietary fiber Continue Linzess 290 mcg QD S/P screening colonoscopy on 11/08/22 - recommend repeat colonoscopy in 2 to 3 years due to suboptimal prep Follow up with GI as scheduled (6) GERD (gastroesophageal reflux disease): Code(s): K21.9 - Gastro-esophageal reflux disease without esophagitis Category: Medical Qualifiers: Esophagitis presence: without esophagitis Qualified Code(s): K21.9 - Gastro-esophageal reflux disease without esophagitis Plan: Dietary restrictions reinforced Continue Omeprazole 40 mg QD Follow up with GI as scheduled (7) Anemia: Code(s): D64.9 - Anemia, unspecified Category: Medical Qualifiers: Anemia type: unspecified type Qualified Code(s): D64.9 - Anemia, unspecified Plan: Patient is still mildly anemic but her H/H have remained stable Continue Ferrous sulfate 325 mg QD and Vitamin B12 1000 mcg QD Will continue to monitor her CBC regularly (8) B12 deficiency: Code(s): E53.8 - Deficiency of other specified B group vitamins Category: Medical Plan: Continue Vitamin B12 tablets 1000 mcg QD (9) Vitamin D deficiency: Code(s): E55.9 - Vitamin D deficiency, unspecified Category: Medical Plan: Continue OTC Vitamin D supplements daily (10) Allergic rhinitis: Code(s): J30.9 - Allergic rhinitis, unspecified Category: Medical Qualifiers: Allergic rhinitis trigger: unspecified Allergic rhinitis seasonality: unspecified Qualified Code(s): J30.9 - Allergic rhinitis, unspecified Plan: Continue Fluticasone 50 mcg nasal spray QD PRN and Cetirizine 10 mg QD PRN (11) Lumbar degenerative disc disease: Code(s): M51.36 - Other intervertebral disc degeneration, lumbar region Category: Medical Qualifiers: Disc-related pain type: discogenic back pain only Qualified Code(s): M51.360 - Other intervertebral disc degeneration, lumbar region with discogenic back pain only Plan: Reinforced activity and weight-lifting restrictions to minimize aggravating her low back pain Repeat lumbar spine x-rays done in April 2021 revealed (+) chronic changes of lumbar spine DDD She was sent for lumbar spine MRI for further evaluation a couple of years ago but patient reportedly missed her appt and she has not rescheduled Continue Ibuprofen 800 mg TID with food PRN for pain and Tramadol 50 mg 1 to 2 times a day ONLY as needed for SEVERE pain - Rx refilled (12) Spondylosis of cervical spine without myelopathy: Code(s): M47.812 - Spondylosis without myelopathy or radiculopathy, cervical region Category: Medical Plan: She was seen by pain management last year and they recommended physical therapy and other modalities to help with her neck pain; recommended NO opioids as they do not think patient's current symptoms warrant Tx with long-term opioids She has been reportedly advised to follow up with them only on an as needed basis (13) Pain of right scapula: Code(s): M89.8X1 - Other specified disorders of bone, shoulder Category: Medical Plan: Patient states that her shoulder pain has mostly subsided and has not bothered her too much lately X-rays of the right shoulder done a few months ago in April 2024 revealed (+) early OA changes (14) Insomnia: Code(s): G47.00 - Insomnia, unspecified Category: Medical Qualifiers: Insomnia type: unspecified Qualified Code(s): G47.00 - Insomnia, unspecified Plan: Sleep hygiene reinforced Continue Amitriptyline 25 mg Q HS (15) Anxiety: Code(s): F41.9 - Anxiety disorder, unspecified Category: Medical Plan: Continue Alprazolam 1 mg TID PRN Follow up with psychiatry as scheduled (16) Obesity (BMI 30-39.9): Code(s): E66.9 - Obesity, unspecified Category: Medical Plan: Reinforced diet/exercise as tolerated/lose weight Plan Follow up in 3 months Orders: Orders Complete Blood Count Auto Diff 3 Months D64.9 - Anemia, unspecified UA CC w/rflx Micro + Cult 3 Months R30.0 - Dysuria Vitamin B12 and Folate 3 Months E53.8 - Deficiency of other specified B group vitamins Lipid Panel 3 Months E78.00 - Pure hypercholesterolemia, unspecified Microalbumin, Random (w Creat) 3 Months E11.9 - Type 2 diabetes mellitus without complications Comprehensive [place]. Panel Fast 3 Months E78.00 - Pure hypercholesterolemia, unspecified Hemoglobin A1c 3 Months E11.9 - Type 2 diabetes mellitus without complications Free T4 (Free Thyroxine) 3 Months E03.9 - Hypothyroidism, unspecified Thyroid Stimulating Hormone 3 Months E03.9 - Hypothyroidism, unspecified Medications: Refilled ibuprofen TAKE WITH FOOD 800 mg PO TID 30 days PRN 90 tabs 3RF fever or pain
== END 2024-07-24 09:36 | disposition home or self-care (01) ==
LOC: HO.HMCH 08:47
PROVIDERS: PCP Internal Medicine; Visit Provider Internal Medicine
DX: E78.00 Pure hypercholesterolemia, unspecified (principal); E11.9 Type 2 diabetes mellitus without complications; E03.9 Hypothyroidism, unspecified; G43.909 Migraine, unspecified, not intractable, without status migrainosus; K59.04 Chronic idiopathic constipation; K21.9 Gastro-esophageal reflux disease without esophagitis; D64.9 Anemia, unspecified; E53.8 Deficiency of other specified B group vitamins; E55.9 Vitamin D deficiency, unspecified; J30.9 Allergic rhinitis, unspecified; M51.360 Other intervertebral disc degeneration, lumbar region with discogenic back pain only; M47.812 Spondylosis without myelopathy or radiculopathy, cervical region

== ENCOUNTER → 2024-07-24 08:46 | Outpatient (BNVA) | payer MEDICARE, MEDICAID, SELFPAY | PROVIDERS: PCP Internal Medicine; Visit Provider Internal Medicine | DX: E78.00 Pure hypercholesterolemia, unspecified (principal); E11.9 Type 2 diabetes mellitus without complications; E03.9 Hypothyroidism, unspecified; G43.909 Migraine, unspecified, not intractable, without status migrainosus; K59.04 Chronic idiopathic constipation; K21.9 Gastro-esophageal reflux disease without esophagitis; D64.9 Anemia, unspecified; E53.8 Deficiency of other specified B group vitamins; E55.9 Vitamin D deficiency, unspecified; J30.9 Allergic rhinitis, unspecified; M51.360 Other intervertebral disc degeneration, lumbar region with discogenic back pain only; M47.812 Spondylosis without myelopathy or radiculopathy, cervical region; M89.8X1 Other specified disorders of bone, shoulder; G47.00 Insomnia, unspecified; F41.9 Anxiety disorder, unspecified; E66.9 Obesity, unspecified; Z68.35 Body mass index [BMI] 35.0-35.9, adult; Z71.3 Dietary counseling and surveillance | CPT/HCPCS: 96127; 99212 ==

== ENCOUNTER 2024-09-14 10:48 | Outpatient (REF) | payer MEDICARE, MEDICAID, SELFPAY ==
[2024-09-21 08:26] LABS: HPV Genotype 16 Negative (Negative); HPV Genotype 18 Negative (Negative); HPV High Risk Negative (Negative)
== END 2024-09-14 10:49 | disposition home or self-care (01) ==
LOC: HO.LNP 10:48
PROVIDERS: PCP Internal Medicine; Visit Provider Obstetrics & Gynecology
DX: Z01.419 Encounter for gynecological examination (general) (routine) without abnormal findings (principal); Z11.51 Encounter for screening for human papillomavirus (HPV); N93.9 Abnormal uterine and vaginal bleeding, unspecified
CPT/HCPCS: 87626; 88175; 99396

== ENCOUNTER 2024-09-14 10:48 | Outpatient (AMB) | payer MEDICARE, MEDICAID, SELFPAY ==
[2024-09-14 10:50] VITALS: BP 120/70; BMI 36.3
--- NOTE | 2024-09-14 10:50 | A.OFFVIS_ITS ---
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 Community Outreach Worker Required: Yes Community Outreach Worker Language: Management Consulting Services: Community Outreach Worker Present (in person) Community Outreach Worker Name: Sylvia RICO Information Interpreted: non-clinical & clinical Security Operations Center Analyst: Security Operations Center Analyst Present (Sylvia RICO) Accompanied by: Self / Same As Patient Allergies lisinopril (LISINOPRIL) Allergy (Severe, Verified 09/14/24 10:53) ANAPYHLAXIS, swelling metformin (METFORMIN) Allergy (Severe, Verified 09/14/24 10:53) ANAPHYLAXIS, diarrhea sumatriptan (From IMITREX) Allergy (Severe, Verified 09/14/24 10:53) ANAPHYLAXIS, sedation HPI Comments Details: Presenting for annual exam. No complaints. Last Pap/HPV was negative in 09/08, this was preceded by ascus HPV negative in 06/06 Last Mammogram was BI-RADS 2 in 08/09 Last colonoscopy was in 09/05, the recommendation was to repeat in 3 years, the patient is scheduled for an appointment with GI [facility] Medical History Vulvovaginitis Vulvar abscess Lumbar degenerative disc disease Foreign body in throat Lumbar back pain with radiculopathy affecting right lower extremity Rhinitis ASCUS of cervix with negative high risk HPV Internal derangement of right knee Lumbar radicular pain Renal calculi Hypothyroidism (acquired) Anemia Vitamin D deficiency Pure hypercholesterolemia Obesity (BMI 30-39.9) Costochondritis Migraine Allergic rhinitis Diabetes mellitus Occipital neuralgia of left side Chronic pain syndrome Spondylosis of cervical spine without myelopathy Arthritis EKG abnormalities Anal fissure Gastroparesis Hepatomegaly MIO on CPAP Insomnia Anxiety Constipation GERD (gastroesophageal reflux disease) B12 deficiency Proteinuria Type 2 diabetes mellitus with other diabetic kidney complication Hypoglycemia after GI (gastrointestinal) surgery Surgical History H/O colonoscopy H/O gastric bypass History of tubal ligation Hx of lithotripsy History of umbilical hernia Hx of section History of esophagogastroduodenoscopy (EGD) Hx of bilateral breast reduction surgery Hx of cholecystectomy Family History Father Liver cancer Hypertension Diabetes mellitus CVD (cardiovascular disease) Liver failure Mother Hypercholesterolemia Breast cancer Asthma Depression Maternal Grandmother Diabetes mellitus Hypertension Paternal Grandmother Diabetes mellitus Hypertension Social History Household Members: Significant Other Housing: House Alcohol intake: never Patient Tobacco Use Status: Never used Tobacco e-Cigarette/Vaping Use: Never Used Second Hand Smoke Exposure: Yes service: No Current occupational status: disabled Cognitive needs: No Hearing needs: No Vision needs: Yes Female Reproductive History Menstrual Age of Menarche: 11 Date of last pap smear: 05/18/21 Date of Mammogram: 06/04/24 Review of Systems Const All systems reviewed & are unremarkable except as noted in HPI and below Card Reports as per HPI Resp Reports as per HPI GI Reports as per HPI and Reports no additional complaints Reports as per HPI Physical Exam Vital Signs: Last Vital Signs BP 120/70 09/14/24 10:50 BMI result Body Mass Index 36.3 Const General: cooperative, healthy appearing and comfortable Chest Chest palpation & inspection: normal inspection of the chest and normal palpation of entire chest wall Breast/axilla inspection: normal inspection of the breasts and normal inspection of the axillae Breast/axilla palpation: normal palpation of the breasts, normal palpation of the axillae and no axillary lymphadenopathy Resp Effort & Inspection: normal respiratory effort Auscultation: clear to auscultation bilaterally Percussion: percussion normal Cardio Palpation: normal PMI Rate: regular rate Rhythm: regular rhythm Heart sounds: no murmurs and no rubs Peripheral pulses: Peripheral pulses 2+ throughout GI Inspection: Yes normal to inspection Palpation (GI): Soft to palpation, nontender, no guarding, not rigid and No hepatosplenomegaly present Percussion: Yes normal to percussion Auscultation: normal bowel sounds Rectal Exam - Female: deferred General: Yes bladder normal to palpation External Female Exam: No lesion Speculum Exam - Vagina: normal appearance of the vagina, normal palpation, normal vaginal discharge and not erythematous Speculum Exam - Cervix: normal appearance of the cervix and normal palpation Bimanual exam- vagina & uterus: normal bimanual exam, normal palpation, uterine size normal, bladder normal to palpation, consistency normal and normal palpation Bimanual Exam- Adnexa, other: normal adnexae, no masses and no tenderness Assessment & Plan Assessment & Plan (1) Well woman exam: Code(s): Z01.419 - Encounter for gynecological examination (general) (routine) without abnormal findings Category: Medical Plan: Cotesting done. Instructions given the patient to schedule next screening Mammogram in 08/10 Counseled the patient about the recommended dietary allowance of 1000 mg of Calcium & 600 IU of vitamin D. The patient was instructed to perform monthly self-breast exams and to schedule an annual exam in a year; All questions answered and the patient verbalized understanding. Instructed the patient to schedule annual exam in a year Coding Level of Care Code Est Pt Prev Care 40-64y(90768) Diagnoses Well woman exam Z01.419
--- OUTSIDE RECORDS SUMMARY | 2024-09-14 11:35 | XMS_ITS | Encounter Summary ---
Author Organization [facility] Address [address] [place] [address] Care Team Providers Care Phys Assistant Name Role Phone Abida Lombardi MD Primary Care Provider Juve Montelongo MD Primary Care Provider Wally vickers Encounter Details Date Type Department Care Team Description 05/10/2020 Old Medical Records Medical Records [address] [place] [address] Abstract, Provider Social History Tobacco Use Types [...] on filedocumented in this encounter Care Teams Phys Assistant Relationship Specialty Start Date End Date Abida Lombardi MD PCP - General Internal Medicine 04/14/19 10/12/20 Juve Crawford MD PCP - General Internal Medicine 10/13/20 documented as of this encounter
== END 2024-09-14 11:37 | disposition home or self-care (01) ==
LOC: HO.HWS 10:48
PROVIDERS: PCP Internal Medicine; Visit Provider Obstetrics & Gynecology
DX: Z01.419 Encounter for gynecological examination (general) (routine) without abnormal findings (principal)
CPT/HCPCS: 99396; 99459

== ENCOUNTER 2024-11-05 08:37 | Outpatient (AMB) | payer MEDICARE, MEDICAID, SELFPAY ==
--- NOTE | 2024-11-05 08:39 | A.OFFVIS_ITS ---
Vital Signs 11/05/24 08:39 Height 5 ft Intake Visit Reasons: 6m sz Allergies lisinopril (LISINOPRIL) Allergy (Severe, Verified 11/05/24 08:42) ANAPYHLAXIS, swelling metformin (METFORMIN) Allergy (Severe, Verified 11/05/24 08:42) ANAPHYLAXIS, diarrhea sumatriptan (From IMITREX) Allergy (Severe, Verified 11/05/24 08:42) ANAPHYLAXIS, sedation Medication List - Last Reconciled 11/05/24 by Alina Augustin CNP acarbose 100 mg PO TID alcohol swabs (Alcohol Pads) 1 pad topical TID 30 days alprazolam 1 mg PO TID PRN blood sugar diagnostic (FreeStyle Lite Strips) test blood sugar once a day as instructed - frequent low blood sugar readings blood-glucose meter (FreeStyle Lite Meter kit) As directed once a day cetirizine 10 mg PO DAILY PRN 90 days clonidine HCl 0.1 mg PO DAILY cyanocobalamin (vitamin B-12) 500 mcg sublingual daily, saturday - saturday; 30 days dicyclomine 20 mg PO QID PRN fluticasone propionate 50 mcg/actuation 1 spray intranasal DAILY ibuprofen 800 mg PO TID PRN 30 days lancets (FreeStyle Lancets) test blood sugar once as instructed - frequent LOW blood sugar readings levothyroxine 50 mcg PO DAILY 90 days linaclotide (Linzess) 290 mcg PO DAILY 30 days melatonin 5 - 10 mg PO BEDTIME PRN metoclopramide HCl (Reglan) 10 mg PO QIDACHS oxybutynin chloride ER 10 mg PO DAILY pyridoxine (vitamin B6) 100 mg PO DAILY rosuvastatin 5 mg PO DAILY 90 days simethicone 180 mg PO QID 30 days topiramate 100 mg PO BEDTIME 90 days tramadol 1 tablet 1 to 2 times a day orally ONLY NEEDED for SEVERE PAIN; 30 days HPI Comments Details: 48-year-old woman with migraine. She was doing okay. Topiramate helped with migraines a lot. She had few more headaches in the summer with the heat and humidity. Sleep was okay. Mood was okay. [facility] Medical History Vulvovaginitis Vulvar abscess Lumbar degenerative disc disease Foreign body in throat Lumbar back pain with radiculopathy affecting right lower extremity Rhinitis ASCUS of cervix with negative high risk HPV Internal derangement of right knee Lumbar radicular pain Renal calculi Hypothyroidism (acquired) Anemia Vitamin D deficiency Pure hypercholesterolemia Obesity (BMI 30-39.9) Costochondritis Migraine Allergic rhinitis Diabetes mellitus Occipital neuralgia of left side Chronic pain syndrome Spondylosis of cervical spine without myelopathy Arthritis EKG abnormalities Anal fissure Gastroparesis Hepatomegaly MIO on CPAP Insomnia Anxiety Constipation GERD (gastroesophageal reflux disease) B12 deficiency Proteinuria Type 2 diabetes mellitus with other diabetic kidney complication Hypoglycemia after GI (gastrointestinal) surgery Surgical History H/O colonoscopy H/O gastric bypass History of tubal ligation Hx of lithotripsy History of umbilical hernia Hx of section History of esophagogastroduodenoscopy (EGD) Hx of bilateral breast reduction surgery Hx of cholecystectomy Family History (Updated 11/05/24 @ 08:42 by Alina Augustin CNP) Father Liver cancer Hypertension Diabetes mellitus CVD (cardiovascular disease) Liver failure Headache Mother Hypercholesterolemia Breast cancer Asthma Depression Headache Maternal Grandmother Diabetes mellitus Hypertension Paternal Grandmother Diabetes mellitus Hypertension Social History Household Members: Significant Other Housing: House Alcohol intake: never Patient Tobacco Use Status: Never used Tobacco e-Cigarette/Vaping Use: Never Used Second Hand Smoke Exposure: Yes service: No Current occupational status: disabled Cognitive needs: No Hearing needs: No Vision needs: Yes Female Reproductive History Menstrual Age of Menarche: 11 Review of Systems Const Denies chills, Denies daytime sleepiness, Denies difficulty sleeping, Denies fatigue, Denies fever(s), Denies frequent falls, Reports headache(s), Denies increased appetite, Denies poor appetite, Denies snoring, Denies weakness, Denies weight gain and Denies weight loss Eyes Denies loss of vision ENT Denies vertigo, Denies dizziness and Reports headache(s) Card Denies chest pain at rest, Denies chest pain with activity, Denies syncope, Denies leg edema and Denies palpitations Resp Denies snoring GI Denies constipation, Denies heartburn, Denies diarrhea and Denies nausea Denies urinary frequency, Denies urinary incontinence and Denies urinary urgency Musc Denies abnormal gait, Denies numbness and Denies tingling Skin/Breast Denies dry skin and Denies rash Neuro Denies abnormal gait, Denies vertigo, Denies dizziness, Denies syncope, Denies frequent falls, Reports headache(s), Denies lack of coordination, Denies loss of vision, Denies memory loss, Denies numbness, Denies restless legs, Denies seizure-like activity, Denies tingling, Denies paresthesias, Denies tremor(s) and Denies weakness Psych Denies anxiety, Denies depression, Denies auditory hallucinations, Denies memory loss, Denies visual hallucinations and Denies suicidal ideation Endo Denies fatigue and Denies palpitations Physical Exam Const Other: General Appearance:? normal, in no acute distress. Skin:? no rashes, no significant birthmarks. Heart:? S1, S2 normal, no murmurs. Lungs:? clear anteriorly and posteriorly. Extremities:? no edema. Psych:? alert, oriented, cognitive function intact, cooperative with exam. Neuro Other: Mental Status:?Normal attention, orientation, memory and affect.? Cranial Nerves:?Pupils are equal, round and reactive to light. External occular muscles are intact. Visual penny are full. Face is symmetrical. Facial sensations are normal. Tongue is midline. Palate elevates symmetrically. Shoulder shrugging is normal. Hearing to bedside conversation is normal. Funduscopy is normal. Sensory Exam:?....? Coordination:?No ataxia,?no titubation.? Gait Exam: Within normal limits. Cerebellar Signs:?[id number] is okay. Extrapyramidal System:?No tremor, rigidity with normal facial expressions.? Pronator Drift:?Not present.? Involuntary Movements:?No tremors seen.? Speech:?Normal.? Results Reviewed Results Reviewed: NCV/EMG UE 06/23/18 This is an unremarkable study. CT brain WO at [facility] in 2013: [place] EMG/NCS R UE at [facility] in Oct 2017: early R CTS. Assessment & Plan Assessment & Plan (1) Migraine without aura: Code(s): G43.009 - Migraine without aura, not intractable, without status migrainosus Category: Medical Qualifiers: Intractability: not intractable Status migrainosus presence: without status migrainosus Qualified Code(s): G43.009 - Migraine without aura, not int ractable, without status migrainosus Plan: Continue topiramate 100mg 1 tablet at bedtime. Medications: Refilled topiramate 100 mg PO BEDTIME 90 tabs 1RF 90 days G43.909 - Migraine, unspecified, not intractable, without status migrainosus Coding Level of Care Code Est Pt Level 3 (75034) Diagnoses Migraine without aura and without status migrainosus, not intractable G43.009 Intractability: not intractable Status migrainosus presence: without status migrainosus
--- OUTSIDE RECORDS SUMMARY | 2024-11-05 09:36 | XMS_ITS | Clinical Summary ---
Author Organization [address] [facility] Address [address] [place] [address] Phone Care Team Providers Care Composition Mixer Name Role Phone Juve Crawford MD Primary Care Provider [phone] Allergies Active Allergy Reactions Criticality Noted Date Comments Lisinopril 07/23/2017 swelling in lips Metformin 07/23/2017 pain Sumatriptan 07/11/2020 Medications linaCLOtide (LINZESS) 290 mcg capsule Take by mouth. Act natasha rosuvastatin (CRESTOR) 5 mg tablet Take 1 [...] total) by mouth if needed. 4 Active Active Problems Problem Noted Date Diagnosed Date Diabetes mellitus ([facility] V24, [facility] V28) Pharyngoesophageal dysphagia 07/11/2020 Constipation 03/17/2019 Intestinal malabsorption following gastrectomy 1 05/05/2017 Surgical History Surgery Date Site/Laterality Comments OTHER SURGICAL HISTORY PROCEDURE: [place] LAPS GSTR RSTCV PX W/BYP KAYLAH-EN-Y LIMB <150 CM Medical History Medical History Date Comments Diabetes mellitus (CMS/[facility] V24, [facility] V28) DX:Diabetes mellitus (HCC) Hyperchloremia DX:Hyperchloremi a [...] 62 03/26/2024 10:05 AM EST Temperature 36.2 C (97.2 F) 03/26/2024 10:05 AM EST Respiratory Rate - - Oxygen Saturation - - Inhaled Oxygen Concentration - - Weight 79.4 kg (175 lb) 03/26/2024 10:05 AM EST Height 152.4 cm (5') 03/26/2024 10:05 AM EST Body Mass Index 34.18 03/26/2024 10:05 AM EST Plan of Treatment Upcoming Encounters Date Type Department Care Team (Late st Contact Info) Description 04/06/2025 9:00 AM EST Office Visit Bariatric Surgery - [place] [address] [facility] [address] [place] [phone] Lluvia Rosales MD [address] [facility] [address] [place] [address] Health Maintenance Due Date Last Done Comments Breast Cancer Screening 1976 Diabetes: Annual GFR (Glomerular Filtration Rate) 1976 Diabetes: Annual Foot Exam 1986 Diabetes: Annual Retina Eye Exam 1986 Hepatitis B Vaccines (1 of 3 - 19+ 3-dose series) 12/27/1995 Cervical Cancer Screening: Pap Smear 1997 Pneumococcal Vaccine: Pediatrics (0 to 5 Years) and At-Risk Patients (6 to 49 Years) (2 of 2 - PCV) 06/28/2011 06/27/2010 Cholesterol Screening (Lipid Panel) 02/24/2022 Colorectal Cancer Screening: Colonoscopy 02/24/2022 HIV Screening 02/24/2022 Hepatitis C Screening 02/24/2022 Medicare Annual Wellness Visit 02/24/2022 Social Influencers of Health Screening 02/24/2022 Diabetes: Annual Urine Albumin-Creatinine Ratio (uACR) 02/28/2022 Diabetes: Blood Sugar Control Test (HGBA1C) 02/28/2022 COVID-19 Vaccine ( season) 2023 05/16/2022, 08/16/2020, 07/26/2020 Depression Screening 03/18/2024 Influenza Vaccine (#1) 2024 , 01/11/2023, 12/09/2021, Additional history exists DTaP,Tdap,and Td Vaccines (11 - Td or [...] Insurance [place] - [place] MEDICARE Care Teams Composition Mixer Relationship Specialty Start Date End Date Juve Crawford MD [address] [place] [address] [address] EBONI Byers PCP - General Internal Medicine 10/13/20
--- OUTSIDE RECORDS SUMMARY | 2024-11-05 09:36 | XMS_ITS | Clinical Summary ---
Author Organization [employer] Address [address] [facility] 7[address] [place] [address] Care Team Providers Care Station Agent Name Role Phone Unavailable Primary Care Provider Unavailabl e Immunizations Immunization Administration Dates Next Due Pfizer Covid-19 Vaccine [...] Panel 1976 SDOH Screening 1976 Sigmoidoscopy 1976 Disability Screening 1976 Alcohol/Substance Use Screening 1988 Tobacco Screening 1988 Family Planning (PISQ) 12/27/1991 Hepatitis C Screening 1994 Hepatitis B Vaccines (1 of 3 - 19+ 3-dose series) 12/27/1995 Pap Smear 1997 Cervical Cancer Screening 2006 HPV/Cotest 2006 Mammogram 2016 COVID-19 Vaccine ( season) 2023 05/16/2022, 08/16/2020, 07/26/2020 Influenza Vaccine (#1) 2024 , 12/06/2020, 02/28/2020, Additional history exists DTaP/Tdap/Td Vaccines (8 - Td or Tdap) 01/10/2026 01/11/2016, 06/27/2010, 09/03/2001, Additional history exists Zoster Vaccines (1 of 2) 2026 RSV Patients and Patients Aged 60 years or older (1 - 1-dose 75+ series) 12/27/2051 IPV Vaccines Completed 07/14/1981, 10/17, 09/19/1977, Additional history exists Pneumococcal Vaccine: Pediatrics (0 to 5 Years) and At-Risk Patients (6 to 49) Years Aged Out 06/27/2010 No longer eligible based [...] patient's age to complete this topic Insurance [facility] FULL
== END 2024-11-05 09:28 | disposition home or self-care (01) ==
LOC: HO.HSM 08:38
PROVIDERS: PCP Internal Medicine; Referring Provider Internal Medicine; Visit Provider Registered Nurse
DX: G43.009 Migraine without aura, not intractable, without status migrainosus (principal)
CPT/HCPCS: 99213

== ENCOUNTER → 2024-11-05 08:37 | Outpatient (BNVA) | payer MEDICARE, MEDICAID, SELFPAY | PROVIDERS: PCP Internal Medicine; Referring Provider Internal Medicine; Visit Provider Registered Nurse | DX: G43.009 Migraine without aura, not intractable, without status migrainosus (principal); Z79.899 Other long term (current) drug therapy | CPT/HCPCS: 99212 ==

== ENCOUNTER 2024-11-09 08:15 | Outpatient (AMB) | payer MEDICARE, MEDICAID, SELFPAY ==
--- OUTSIDE RECORDS SUMMARY | 2024-11-09 08:34 | XMS_ITS | Clinical Summary ---
Author Organization [employer] Address [address] [facility] 7[address] [place] [address] Care Team Providers Care Mortgage Coordinator Name Role Phone Unavailable Primary Care Provider [...] patient's age to complete this topic Insurance [facility] LIMITED [facility] FULL
--- OUTSIDE RECORDS SUMMARY | 2024-11-09 08:34 | XMS_ITS | Clinical Summary ---
Author Organization 175 [facility] Address [address] [place] [address] Phone Care Team Providers Care Maintenance Mechanic Elevators Name Role Phone Juve Crawford MD Primary [...] Problem Noted Date Diagnosed Date Diabetes mellitus ([facility] V24, [facility] V28) Pharyngoesophageal dysphagia 07/11/2020 Constipation 03/17/2019 Intestinal malabsorption following gastrectomy 1 05/05/2017 Surgical History Surgery Date Site/Laterality Comments OTHER SURGICAL HISTORY PROCEDURE: [place] LAPS GSTR RSTCV PX W/BYP KAYLAH-EN-Y LIMB <150 CM Medical History Medical History Date Comments Diabetes mellitus (CMS/[facility] V24, [facility] V28) DX:Diabetes mellitus (HCC) Hyperchloremia DX:Hyperchloremi a [...] AM EST Office Visit Bariatric Surgery - [place] [address] [facility] [address] [place] [phone] Lluvia Rosales MD [address] [facility] [address] [place] [address] Health Maintenance Due Date Last Done Comments [...] Insurance [place] - [place] MEDICARE Care Teams Maintenance Mechanic Elevators Relationship Specialty Start Date End Date Juve Crawford MD [address] [place] [address] [address] EBONI Byers PCP - General Internal Medicine 10/13/20
== END 2024-11-09 09:34 | disposition home or self-care (01) ==
LOC: HO.HMGAL 08:15
PROVIDERS: PCP Internal Medicine; Visit Provider Registered Nurse Emergency
DX: J30.89 Other allergic rhinitis (principal)
CPT/HCPCS: 95117; 95165

== ENCOUNTER 2024-11-19 08:08 | Outpatient (REF) | payer MEDICARE, MEDICAID, SELFPAY ==
[2024-11-19 08:26] LABS: MANUAL DIFF FLAG NO
--- OUTSIDE RECORDS SUMMARY | 2024-11-19 08:27 | XMS_ITS | Clinical Summary ---
Author Organization [employer] Address [address] [facility] 7[address] [place] [address] Care Team Providers Care Senior Director Name Role Phone Unavailable Primary Care Provider [...] 2006 Mammogram 2016 COVID-19 Vaccine ( season) 2024 05/16/2022, 08/16/2020, 07/26/2020 Influenza Vaccine (#1) 2024 [...] patient's age to complete this topic Insurance [facility] LIMITED [facility] FULL
--- OUTSIDE RECORDS SUMMARY | 2024-11-19 08:27 | XMS_ITS | Clinical Summary ---
Author Organization 175 [facility] Address [address] [place] [address] Phone Care Team Providers Care Textile Supervisor Name Role Phone Juve Crawford MD Primary Care Provider [phone] Allergies Active Allergy Reactions Criticality Noted Date [...] Problem Noted Date Diagnosed Date Diabetes mellitus ([facility] V24, [facility] V28) Pharyngoesophageal dysphagia 07/11/2020 Constipation 03/17/2019 Intestinal malabsorption following gastrectomy 1 05/05/2017 Surgical History Surgery Date Site/Laterality Comments OTHER SURGICAL HISTORY PROCEDURE: [place] LAPS GSTR RSTCV PX W/BYP KAYLAH-EN-Y LIMB <150 CM Medical History Medical History Date Comments Diabetes mellitus (CMS/[facility] V24, [facility] V28) DX:Diabetes mellitus (HCC) Hyperchloremia DX:Hyperchloremi a [...] AM EST Office Visit Bariatric Surgery - [address] [place] [address] Lluvia Rosales MD [address] [place] [phone] Health Maintenance Due Date Last Done Comments [...] Insurance [place] - [place]ARE Care Teams Textile Supervisor Relationship Specialty Start Date End Date Juve Crawford MD [address] [place] [address] [address] [place], [place] PCP - General Internal Medicine 10/13/20
[2024-11-19 09:19] LABS: Hematocrit 34.8 % (37.0-47.0); Hemoglobin 11.3 g/dl (12.0-16.0); Imm Gran Abs Auto 0.09 X10*3/uL (0.00-0.03); Imm Gran Pct Auto 0.9 % (0.0-0.4); Lymphocytes Absolute Auto 1.9 X10*3/uL (1.2-4.9); Mean Corpuscular HGB Conc 32.5 g/dl (31.0-35.0); Mean Corpuscular Hemoglobin 27.6 pg (27.0-33.0); Mean Corpuscular Volume 84.9 fL (80.0-98.0); NRBC Abs Auto 0.000 X10*3/uL (0.0-0.012); NRBC Pct Auto 0.0 /100WBC (0.0-0.2); Platelet Count 314 X10*3/uL (160-400); Red Blood Count 4.10 X10*6/uL (4.20-5.50); White Blood Count 10.4 X10*3/uL (4.8-10.8)
[2024-11-19 09:21] LABS: Appearance Urine Clear; Glucose Urine UA Negative (Negative); PH 6.0 (5.0-9.0); Specific Gravity - Urine 1.020 (1.005-1.025); UMIC TRIGGER UACC YES
[2024-11-19 09:29] LABS: Hemoglobin A1C 112.0544 umol/L; Total Hemoglobin (HGBA1C) 2981.5590 umol/L
[2024-11-19 10:29] LABS: Alanine Aminotransferase 14 U/L (0-31); Albumin Level 4.2 g/dL (3.5-5.0); Alkaline Phosphatase 73 U/L (39-117); Anion Gap 9 (12-20); Aspartate Amino Transferase 25 U/L (5-31); Blood Urea Nitrogen 11 mg/dL (9-16); Calcium 9.0 mg/dL (8.4-10.2); Carbon Dioxide 23 mmol/L (22-29); Chloride 110 mmol/L (96-108); Cholesterol 129 mg/dL (<200); Estimated Glomerular Filt Rate > 60; HDL Cholesterol 46 mg/dL (>40); Potassium 4.1 mmol/L (3.3-5.1); Sodium 138 mmol/L (135-145); Total Protein 7.6 g/dL (6.5-8.0); Triglycerides 138 mg/dL (<150)
[2024-11-19 10:47] LABS: Free T4 (Free Thyroxine) 0.86 ng/dL (0.71-1.85); Thyroid Stimulating Hormone 3.01 uIU/mL (0.32-4.0)
[2024-11-19 10:56] LABS: Microalbum/Creatinine Ratio Ur 5.7 ug/mg cr (<30)
[2024-11-19 10:58] LABS: Folate 12.0 ng/mL (> or = 4.0); Vitamin B12 261 pg/mL (200-900)
== END 2024-11-19 08:09 | disposition home or self-care (01) ==
LOC: HO.LAB 08:08
PROVIDERS: PCP Internal Medicine; Visit Provider Internal Medicine
DX: D64.9 Anemia, unspecified (principal); E53.8 Deficiency of other specified B group vitamins; E11.9 Type 2 diabetes mellitus without complications; E03.9 Hypothyroidism, unspecified; E78.00 Pure hypercholesterolemia, unspecified; R30.0 Dysuria
CPT/HCPCS: 36415; 80053; 80061; 81001; 82043; 82570; 82607; 82746; 83036; 84439; 84443; 85025

== ENCOUNTER 2024-11-23 08:32 | Outpatient (AMB) | payer MEDICARE, MEDICAID, SELFPAY ==
--- OUTSIDE RECORDS SUMMARY | 2024-11-23 09:31 | XMS_ITS | Clinical Summary ---
Author Organization [employer] Address [address] [facility] 7[address] [place] [address] Care Team Providers Care Piano Refinisher Name Role Phone Unavailable Primary Care Provider [...] patient's age to complete this topic Insurance [facility] LIMITED [facility] FULL
--- OUTSIDE RECORDS SUMMARY | 2024-11-23 09:31 | XMS_ITS | Clinical Summary ---
Author Organization 175 [facility] Address [address] [place] [address] Phone Care Team Providers Care Work Order Sorting Clerk Name Role Phone Juve Crawford MD Primary [...] Problem Noted Date Diagnosed Date Diabetes mellitus ([facility] V24, [facility] V28) Pharyngoesophageal dysphagia 07/11/2020 Constipation 03/17/2019 Intestinal malabsorption following gastrectomy 1 05/05/2017 Surgical History Surgery Date Site/Laterality Comments OTHER SURGICAL HISTORY PROCEDURE: [place] LAPS GSTR RSTCV PX W/BYP KAYLAH-EN-Y LIMB <150 CM Medical History Medical History Date Comments Diabetes mellitus (CMS/[facility] V24, [facility] V28) DX:Diabetes mellitus (HCC) Hyperchloremia DX:Hyperchloremi [...] AM EST Office Visit Bariatric Surgery - [place] [address] [facility] [address] [place] [address] Lluvia Rsoales MD [address] [place] [phone] Health Maintenance Due Date Last Done Comments [...] Diabetes: Blood Sugar Control Test (HGBA1C) 02/28/2022 Depression Screening 03/18/2024 COVID-19 Vaccine ( season) 2024 05/16/2022, 08/16/2020, 07/26/2020 Influenza Vaccine (#1) 2024 , 01/11/2023, 12/09/2021, [...] Insurance [place] - [place]ARE Care Teams Work Order Sorting Clerk Relationship Specialty Start Date End Date Juve Crawford MD [address] [place] [address] [address] EBONI Byers PCP - General Internal Medicine 10/13/20
== END 2024-11-23 08:44 | disposition home or self-care (01) ==
LOC: HO.HMGAL 08:32
PROVIDERS: PCP Internal Medicine; Visit Provider Registered Nurse Emergency
DX: J30.89 Other allergic rhinitis (principal)
CPT/HCPCS: 95117; 95165

== ENCOUNTER 2024-11-26 10:20 | Outpatient (AMB) | payer MEDICARE, MEDICAID, SELFPAY ==
--- NOTE | 2024-11-26 10:38 | A.OFFPC_ITS ---
Vital Signs 11/26/24 10:39 Height 5 ft Weight 190 lb BMI 37.1 BP 110/70 Blood Pressure Location Lt brachial Position Sitting Pulse 74 Pulse Source Pulse Oximeter Pulse Oximetry (%) 97 Oxygen Delivery Method Room Air Intake Visit Reasons: 3 Months Homicide Squad Commanding Officer Required: No Accompanied by: Self / Same As Patient Allergies lisinopril (LISINOPRIL) Allergy (Severe, Verified 11/26/24 11:21) ANAPYHLAXIS, swelling metformin (METFORMIN) Allergy (Severe, Verified 11/26/24 11:21) ANAPHYLAXIS, diarrhea sumatriptan (From IMITREX) Allergy (Severe, Verified 11/26/24 11:21) ANAPHYLAXIS, sedation Medication List - Last Reconciled 11/26/24 by Juve Crawford MD acarbose 100 mg PO TID alcohol swabs (Alcohol Pads) 1 pad topical TID 30 days alprazolam 1 mg PO TID PRN blood sugar diagnostic (FreeStyle Lite Strips) test blood sugar once a day as instructed - frequent low blood sugar readings blood-glucose meter (FreeStyle Lite Meter kit) As directed once a day cetirizine 10 mg PO DAILY PRN 90 days clonidine HCl 0.1 mg PO DAILY cyanocobalamin (vitamin B-12) 500 mcg sublingual daily, saturday - saturday; 30 days dicyclomine 20 mg PO QID PRN fluticasone propionate 50 mcg/actuation 1 spray intranasal DAILY ibuprofen 800 mg PO TID PRN 30 days lancets (FreeStyle Lancets) test blood sugar once as instructed - frequent LOW blood sugar readings levothyroxine 50 mcg PO DAILY 90 days linaclotide (Linzess) 290 mcg PO DAILY 30 days melatonin 5 - 10 mg PO BEDTIME PRN metoclopramide HCl (Reglan) 10 mg PO QIDACHS oxybutynin chloride ER 10 mg PO DAILY pyridoxine (vitamin B6) 100 mg PO DAILY rosuvastatin 5 mg PO DAILY 90 days simethicone 180 mg PO QID 30 days topiramate 100 mg PO BEDTIME 90 days tramadol 1 tablet 1 to 2 times a day orally ONLY NEEDED for SEVERE PAIN; 30 days Tobacco use date assessed: 11/26/24 Dental Screening Dental Screen Date: 11/26/24 Did you have a dental visit in the last 12 months?: No Did you have a dental problem in the last 6 months where you did not have access to dental care?: No Was dental information given to patient?: Patient has dentist HPI 3 Months HPI Details Patient comes in today for her follow up visit States that she feels okay She denies any headaches or dizziness Denies any chest pains, no increased SOB No nausea/vomiting, no abdominal pain No change in bowel habits noted States that her chronic joint pains remain adequately controlled on her current Rx Needs a couple of her Rx refilled She had her follow up labs done last week - to discuss her results [facility] Medical History Vulvovaginitis Vulvar abscess Lumbar degenerative disc disease Foreign body in throat Lumbar back pain with radiculopathy affecting right lower extremity Rhinitis ASCUS of cervix with negative high risk HPV Internal derangement of right knee Lumbar radicular pain Renal calculi Hypothyroidism (acquired) Anemia Vitamin D deficiency Pure hypercholesterolemia Obesity (BMI 30-39.9) Costochondritis Migraine Allergic rhinitis Diabetes mellitus Occipital neuralgia of left side Chronic pain syndrome Spondylosis of cervical spine without myelopathy Arthritis EKG abnormalities Anal fissure Gastroparesis Hepatomegaly MIO on CPAP Insomnia Anxiety Constipation GERD (gastroesophageal reflux disease) B12 deficiency Proteinuria Type 2 diabetes mellitus with other diabetic kidney complication Hypoglycemia after GI (gastrointestinal) surgery Surgical History H/O colonoscopy H/O gastric bypass History of tubal ligation Hx of lithotripsy History of umbilical hernia Hx of section History of esophagogastroduodenoscopy (EGD) Hx of bilateral breast reduction surgery Hx of cholecystectomy Family History Father Liver cancer Hypertension Diabetes mellitus CVD (cardiovascular disease) Liver failure Headache Mother Hypercholesterolemia Breast cancer Asthma Depression Headache Maternal Grandmother Diabetes mellitus Hypertension Paternal Grandmother Diabetes mellitus Hypertension Social History Household Members: Significant Other Housing: House Alcohol intake: never Patient Tobacco Use Status: Never used Tobacco e-Cigarette/Vaping Use: Never Used Second Hand Smoke Exposure: Yes service: No Current occupational status: disabled Cognitive needs: No Hearing needs: No Vision needs: Yes Female Reproductive History Menstrual Age of Menarche: 11 Questionnaire PHQ-9 Over the last 2 weeks, how often have you been bothered by any of the following problems? 1. Little interest or pleasure in doing things: not at all 2. Feeling down, depressed, or hopeless: not at all 3. Trouble falling or staying asleep, or sleeping too much: not at all 4. Feeling tired or having little energy: not at all 5. Poor appetite or overeating: not at all 6. Feeling bad about yourself - or that you are a failure or have let yourself or your family down: not at all 7. Trouble concentrating on things, such as reading the newspaper or watching television: not at all 8. Moving or speaking so slowly that other people could have noticed. Or the opposite - being so fidgety or restless that you have been moving around a lot more than usual: not at all 9. Thoughts that you would be better off or of hurting yourself in some wa y: not at all Total score: 0 Depression Screening Interpretation: Negative Depression Screening Done: Yes 58708 - PHQ-9 Billing: Yes Source: Developed by Drs. Arthur Duran, Amira Brownlee, Nikos Pelayo and colleagues, with an educational beatriz from [employer]. Thrive Questionnaire Date Thrive assessed: 11/26/24 I am a: Patient What is your living situation today?: I have a steady place to live Within the past 12 months, did the food you bought not last and you didn't have the money to get more?: Often true Within the past 12 months, did you worry whether your food would run out before you got money to buy more?: Often true Do you have trouble paying for medicines?: No Do you have trouble getting transportation to medical appointments?: No Do you have trouble paying your heating and electricity bill?: No Do you have trouble taking care of your child, family member or friend?: No Do you have trouble with day-to-day activities such as bathing, preparing meals, shopping, managing finances, etc.?: No Are you currently unemployed and looking for a job?: No Are you interested in more education?: No Please select the resources that you would like help with: None Currently or been in a relationship where the following occur: No concerns reported THRIVE Score: 2 AUDIT C Alcohol Use Questionnaire (AUDIT-C) 1. How often do you have a drink containing alcohol?: Never 3. How often do you have six or more drinks on one occasion?: Never Total Score: 0 Score Reviewed/Action Taken: Yes SUSAN-7 AMB Questionnaire SUSAN-7 Date SUSAN - 7 assessed: 11/26/24 Feeling nervous, anxious, or on edge: 0 = Not at all Not being able to stop or control worryin = Not at all Worrying too much about different things: 0 = Not at all Trouble relaxin = Not at all Being so restless that it is hard to sit still: 0 = Not at all Becoming easily annoyed or irritable: 0 = Not at all Feeling afraid as if something awful might happen: 0 = Not at all Total SUSAN-7 score (0-4 normal; 5-9 mild; 10-14 moderate; 15-21 severe): 0 Source: Developed by Drs. Arthur Duran, Amira Brownlee, Nikos Pelayo and colleagues, with an educational beatriz from [employer]. Review of Systems Const Denies chills, Denies fatigue, Denies fever(s) and Denies headache(s) (controlled) ENT Denies dysphagia, Denies dizziness, Denies otalgia, Denies headache(s) (controlled), Reports neck pain, Denies odynophagia and Denies sore throat Card Denies chest pain, Denies lightheadedness, Denies palpitations and Denies dyspnea Resp Denies chest congestion, Denies cough and Denies dyspnea GI Denies abdominal pain, Reports constipation (chronic), Denies dysphagia, Denies diarrhea, Denies nausea, Denies odynophagia and Denies vomiting Denies difficulty voiding, Denies nocturia, Denies dysuria and Denies urinary urgency Musc Reports back pain (chronic), Reports arthralgias (right scapular area), Reports neck pain, Reports radiating pain into limb (down right leg and into the foot; into the right arm recently) and Denies tingling Skin/Breast Denies rash Neuro Denies dizziness, Denies headache(s) (controlled) and Denies tingling Endo Denies fatigue and Denies palpitations Physical exam (Primary Care) Vital Signs: Last Vital Signs Pulse 74 11/26/24 10:39 BP 110/70 11/26/24 10:39 Pulse Ox 97 11/26/24 10:39 Oxygen Delivery Method Room Air 11/26/24 10:39 BMI result Body Mass Index 37.1 Tobacco/Smoking Status: Tobacco use Status Tobacco use date assessed 11/26/24 11/26/24 10:40 Patient Tobacco Use Status Never used Tobacco 11/26/24 10:40 e-Cigarette/Vaping Use Never Used 11/26/24 10:40 PHQ-9: PHQ-9 Score PHQ-9: Total score 0 11/26/24 10:44 Depression Screening Interpretation: Negative Thrive Assessment: Date of Thrive Assessment Date Thrive assessed 11/26/24 11/26/24 10:40 Currently or been in a relationship where the following occur: No concerns reported Const General: no acute distress and alert HENMT Ears: TM's normal bilaterally and EAC's normal Throat: Yes posterior oropharynx normal and Yes tonsils normal (no TP congestion noted) Neck Neck: Yes supple and No lymphadenopathy Thyroid: Thyroid normal Resp Auscultation: clear to auscultation bilaterally, no rales and no wheezes Cardio Rate: regular rate Rhythm: regular rhythm Heart sounds: no murmurs GI Palpation (GI): Soft to palpation and nontender Auscultation: normal bowel sounds General: Yes no CVA tenderness Back/Spine/Pelvis Back: no CVA tenderness Cervical Spine: Cervical spine tenderness Thoracic/Lumbar Spine: paraspinal muscle tenderness on the right in the upper lumbar, in the mid lumbar and in the lower lumbar and lumbar spinal tenderness Skin Rashes: no rashes Extrem General: Yes no clubbing, cyanosis or edema Right upper extremity: shoulder/upper arm Details: tenderness Location: of the scapula and normal ROM (but increased radicular symptoms when she raises her arm ); no swelling Results Reviewed Results Reviewed: Laboratory Tests 07/20/24 11/19/24 11/19/24 07:30 08:15 08:24 WBC 10.4 Hgb 11.3 L Hct 34.8 L Plt Count 314 Sodium 138 Potassium 4.1 Creatinine 0.78 Estimated GFR > 60 Fasting Glucose 90 Hemoglobin A1c % 5.6 Calcium 9.0 AST 25 ALT 14 Triglycerides 138 Cholesterol 129 LDL Cholesterol, Calc 56 HDL Cholesterol 46 Vitamin B12 261 25-OH Vitamin D Total 31.7 TSH 3.01 Free T4 0.86 Ur Specific Sunbright 1.020 Urine Protein Negative Urine Glucose (UA) Negative Urine Blood Trace H Urine Nitrite Negative Ur Leukocyte Esterase Negative Microalb/Creat Ratio 5.7 Coding Level of Care Code Est Pt Level 4 (12643) Complex EM visit Add On G2211 Diagnoses Pure hypercholesterolemia E78.00 Type 2 diabetes mellitus without complication, without long-term current use of insulin E11.9 Diabetes mellitus type: type 2 Diabetes mellitus intermediate project manager insulin use: without intermediate project manager use Diabetes mellitus complication status: without complication Hypothyroidism (acquired) E03.9 Migraine without status migrainosus, not intractable, unspecified migraine type G43.909 Migraine type: unspecified Status migrainosus presence: without status migrainosus Intractability: not intractable Chronic idiopathic constipation K59.04 Gastroesophageal reflux disease without esophagitis K21.9 Esophagitis presence: without esophagitis Anemia, unspecified type D64.9 Anemia type: unspecified type B12 deficiency E53.8 Vitamin D deficiency E55.9 Allergic rhinitis, unspecified seasonality, unspecified trigger J30.9 Allergic rhinitis trigger: unspecified Allergic rhinitis seasonality: unspecified Degeneration of intervertebral disc of lumbar region with discogenic back pain M51.360 Disc-related pain type: discogenic back pain only Spondylosis of cervical spine without myelopathy M47.812 Insomnia, unspecified type G47.00 Insomnia type: unspecified Anxiety F41.9 Obesity (BMI 30-39.9) E66.9 Additional Codes PHQ-9 - 88982 - PHQ-9 Billing: Yes ([id number]) Assessment & Plan Assessment & Plan (1) Pure hypercholesterolemia: Code(s): E78.00 - Pure hypercholesterolemia, unspecified Category: Medical Plan: Results of her labs done last week reviewed and discussed with patient Reinforced low cholesterol diet Continue Rosuvastatin 5 mg QD Will recheck her labs and fasting lipids in 3 months for follow up (2) Diabetes mellitus: Code(s): E11.9 - Type 2 diabetes mellitus without complications Category: Medical Qualifiers: Diabetes mellitus type: type 2 Diabetes mellitus detention insulin use: without detention use Diabetes mellitus complication status: without complication Qualified Code(s): E11.9 - Type 2 diabetes mellitus without complications Plan: Her HgbA1c remains normal at 5.6% on her labs done last week; was previously at 5.5% a few months ago - goal is <6.5% Reinforced diabetic diet Continue Acarbose 100 mg TID Follow up with endocrinology as needed - she has reportedly been advised by endocrinology that since her diabetes has been very well controlled, she can just follow up with her PCP and see endocrinology only on an as-needed basis from now on (3) Hypothyroidism (acquired): Code(s): E03.9 - Hypothyroidism, unspecified Category: Medical Plan: Her TFTs remain normal on her recent labs although her free T4 level has been trending down lately and is now in the low-normal raneg Will go ahead and increase her Levothyroxine dose now to 75 mcg QD Will recheck her TFTs in 3 months and continue to monitor her TFTs regularly (4) Migraine: Code(s): G43.909 - Migraine, unspecified, not intractable, without status migrainosus Category: Medical Qualifiers: Migraine type: unspecified Status migrainosus presence: without status migrainosus Intractability: not intractable Qualified Code(s): G43.909 - Migraine, unspecified, not intractable, without status migrainosus Plan: Better controlled lately - states that her migraine headaches have been stable on her current prophylactic Rx Reinforced avoidance of potential migraine triggers Continue Topiramate 100 mg Q HS Follow up with neurology as scheduled (5) Chronic idiopathic constipation: Code(s): K59.04 - Chronic idiopathic constipation Category: Medical Plan: Reinforced increased oral fluids and dietary fiber intake Continue Linzess 290 mcg QD S/P screening colonoscopy on 11/08/22 - recommend repeat colonoscopy in 2 to 3 years due to suboptimal prep Follow up with GI as scheduled (6) GERD (gastroesophageal reflux disease): Code(s): K21.9 - Gastro-esophageal reflux disease without esophagitis Category: Medical Qualifiers: Esophagitis presence: without esophagitis Qualified Code(s): K21.9 - Gastro-esophageal reflux disease without esophagitis Plan: Dietary restrictions reinforced Continue Omeprazole 40 mg QD Follow up with GI as scheduled (7) Anemia: Code(s): D64.9 - Anemia, unspecified Category: Medical Qualifiers: Anemia type: unspecified type Qualified Code(s): D64.9 - Anemia, unspecified Plan: Patient is still mildly anemic but her H/H have remained stable Continue Ferrous sulfate 325 mg QD and Vitamin B12 1000 mcg QD Will continue to monitor her CBC regularly (8) B12 deficiency: Code(s): E53.8 - Deficiency of other specified B group vitamins Category: Medical Plan: Continue Vitamin B12 tablets 1000 mcg QD - Rx refilled (9) Vitamin D deficiency: Code(s): E55.9 - Vitamin D deficiency, unspecified Category: Medical Plan: Continue OTC Vitamin D supplements daily (10) Allergic rhinitis: Code(s): J30.9 - Allergic rhinitis, unspecified Category: Medical Qualifiers: Allergic rhinitis trigger: unspecified Allergic rhinitis seasonality: unspecified Qualified Code(s): J30.9 - Allergic rhinitis, unspecified Plan: Continue Fluticasone 50 mcg nasal spray QD PRN and Cetirizine 10 mg QD PRN (Rx refilled) (11) Lumbar degenerative disc disease: Code(s): M51.36 - Other intervertebral disc degeneration, lumbar region Category: Medical Qualifiers: Disc-related pain type: discogenic back pain only Qualified Code(s): M51.360 - Other intervertebral disc degeneration, lumbar region with discogenic back pain only Plan: Reinforced activity and weight-lifting restrictions to minimize aggravating her low back pain Repeat lumbar spine x-rays done in April 2021 revealed (+) chronic changes of lumbar spine DDD She was sent for lumbar spine MRI for further evaluation a couple of years ago but patient reportedly missed her appt and she has not rescheduled Continue Ibuprofen 800 mg TID with food PRN for pain and Tramadol 50 mg 1 to 2 times a day ONLY as needed for SEVERE pain (12) Spondylosis of cervical spine without myelopathy: Code(s): M47.812 - Spondylosis without myelopathy or radiculopathy, cervical region Category: Medical Plan: She was seen by pain management last year and they recommended physical therapy and other modalities to help with her neck pain; recommended NO opioids as they do not think patient's current symptoms warrant Tx with long-term opioids She has been reportedly advised to follow up with them only on an as needed basis (13) Insomnia: Code(s): G47.00 - Insomnia, unspecified Category: Medical Qualifiers: Insomnia type: unspecified Qualified Code(s): G47.00 - Insomnia, unspecified Plan: Sleep hygiene reinforced Continue Amitriptyline 25 mg Q HS (14) Anxiety: Code(s): F41.9 - Anxiety disorder, unspecified Category: Medical Plan: Continue Alprazolam 1 mg TID PRN Follow up with psychiatry as scheduled (15) Obesity (BMI 30-39.9): Code(s): E66.9 - Obesity, unspecified Category: Medical Plan: Reinforced diet/exercise as tolerated/lose weight Plan Follow up in 3 months Orders: Orders Lipid Panel 3 Months E78.00 - Pure hypercholesterolemia, unspecified Thyroid Stimulating Hormone 3 Months E03.9 - Hypothyroidism, unspecified Microalbumin, Random (w Creat) 3 Months E11.9 - Type 2 diabetes mellitus without complications Hemoglobin A1c 3 Months E11.9 - Type 2 diabetes mellitus without complications Vitamin B12 and Folate 3 Months E53.8 - Deficiency of other specified B group vitamins Complete Blood Count Auto Diff 3 Months D64.9 - Anemia, unspecified Comprehensive [place]. Panel Fast 3 Months E78.00 - Pure hypercholesterolemia, unspecified Free T4 (Free Thyroxine) 3 Months E03.9 - Hypothyroidism, unspecified UA CC w/rflx Micro + Cult 3 Months R30.0 - Dysuria Vitamin D 25-OH Total 3 Months E55.9 - Vitamin D deficiency, unspecified Medications: Changed From levothyroxine 50 mcg PO DAILY 90 days 90 tabs 1RF E03.9 - Hypothyroidism, unspecified To levothyroxine 75 mcg PO DAILY 90 tabs 1RF 90 days E03.9 - Hypothyroidism, un specified Refilled cyanocobalamin (vitamin B-12) 500 mcg sublingual daily, saturday - saturday; 20 tabs 11RF 30 days E53.8 - Deficiency of other specified B group vitamins cetirizine 10 mg PO DAILY PRN 90 tabs 1RF Allergy Symptoms 90 days
[2024-11-26 10:39] VITALS: BP 110/70; PULSE 74; O2SAT 97; BMI 37.1
--- OUTSIDE RECORDS SUMMARY | 2024-11-26 13:00 | XMS_ITS | Clinical Summary ---
Author Organization [employer] Address [address] [facility] [address] [place] [address] Care Team Providers Care Automotive Service Director Name Role Phone Unavailable Primary Care [...] patient's age to complete this topic Insurance [facility] FULL
--- OUTSIDE RECORDS SUMMARY | 2024-11-26 13:00 | XMS_ITS | Clinical Summary ---
Author Organization [address] [facility] Address [address] [place] [address] Phone Care Team Providers Care Manufacturers Service Representative Name Role Phone Juve Crawford MD Primary Care Provider [phone] Allergies Active Allergy Reactions Criticality Noted Date [...] Problem Noted Date Diagnosed Date Diabetes mellitus ([facility] V24, 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 V24, [facility] V28) DX:Diabetes mellitus (HCC) Hyperchloremia DX:Hyperchloremi [...] AM EST Office Visit Bariatric Surgery - [place] [address] [place] [address] Lluvia Rosales MD [address] [place] [phone] Health Maintenance Due Date Last Done [...] Insurance MEDICAID - [place] MEDICARE Care Teams Manufacturers Service Representative Relationship Specialty Start Date End Date Juve Crawford MD [address] [place] [address] [address] EBONI Byers PCP - General Internal Medicine 10/13/20
== END 2024-11-26 11:32 | disposition home or self-care (01) ==
LOC: HO.HMCH 10:21
PROVIDERS: PCP Internal Medicine; Visit Provider Internal Medicine
DX: E78.00 Pure hypercholesterolemia, unspecified (principal); E11.9 Type 2 diabetes mellitus without complications; E03.9 Hypothyroidism, unspecified; E66.9 Obesity, unspecified; Z68.37 Body mass index [BMI] 37.0-37.9, adult; G43.909 Migraine, unspecified, not intractable, without status migrainosus; K59.04 Chronic idiopathic constipation; G47.00 Insomnia, unspecified; K21.9 Gastro-esophageal reflux disease without esophagitis; D64.9 Anemia, unspecified; E53.8 Deficiency of other specified B group vitamins; E55.9 Vitamin D deficiency, unspecified

== ENCOUNTER → 2024-11-26 10:20 | Outpatient (BNVA) | payer MEDICARE, MEDICAID, SELFPAY | PROVIDERS: PCP Internal Medicine; Visit Provider Internal Medicine | DX: E11.9 Type 2 diabetes mellitus without complications (principal); E78.00 Pure hypercholesterolemia, unspecified; E03.9 Hypothyroidism, unspecified; M25.50 Pain in unspecified joint; G43.909 Migraine, unspecified, not intractable, without status migrainosus; K59.04 Chronic idiopathic constipation; K21.9 Gastro-esophageal reflux disease without esophagitis; D64.9 Anemia, unspecified; E53.8 Deficiency of other specified B group vitamins; E55.9 Vitamin D deficiency, unspecified; J30.9 Allergic rhinitis, unspecified; M51.360 Other intervertebral disc degeneration, lumbar region with discogenic back pain only; M47.812 Spondylosis without myelopathy or radiculopathy, cervical region; G47.00 Insomnia, unspecified; F41.9 Anxiety disorder, unspecified; E66.9 Obesity, unspecified; R30.0 Dysuria | CPT/HCPCS: 96127; 99212 ==

== ENCOUNTER 2024-12-02 08:21 | Outpatient (AMB) | payer MEDICARE, MEDICAID, SELFPAY ==
--- OUTSIDE RECORDS SUMMARY | 2024-12-02 09:14 | XMS_ITS | Clinical Summary ---
Author Organization [employer] Address [address] [facility] [address] [place] [address] Care Team Providers Care Chef Kitchen Manager Name Role Phone Unavailable Primary Care [...] age to complete this topic Insurance [facility] LIMITED [facility] FULL
--- OUTSIDE RECORDS SUMMARY | 2024-12-02 09:14 | XMS_ITS | Clinical Summary ---
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 Surgical History Surgery Date Site/Laterality Comments OTHER SURGICAL HISTORY PROCEDURE: [place] LAPS GSTR RSTCV PX W/BYP KAYLAH-EN-Y LIMB <150 CM Medical History Medical History Date Comments Diabetes mellitus ([facility] V24, [facility] V28) DX:Diabetes mellitus (HCC) [...] AM EST Office Visit Bariatric Surgery - [place] [address] [place] [address] Lluvia Rosales MD [address] [place] [phone] Health Maintenance Due Date Last Done [...] Insurance [place] - [place]ARE Care Teams Optical Systems Engineer Relationship Specialty Start Date End Date uJve Crawford MD [address] [place] [address] [address] EBONI Byers PCP - General Internal Medicine 10/13/20
== END 2024-12-02 08:22 | disposition home or self-care (01) ==
LOC: HO.HMGAL 08:21
PROVIDERS: PCP Internal Medicine; Visit Provider Registered Nurse Emergency
DX: J30.89 Other allergic rhinitis (principal)
CPT/HCPCS: 95117; 95165

== ENCOUNTER 2024-12-07 09:39 | Outpatient (AMB) | payer MEDICARE, MEDICAID, SELFPAY ==
--- OUTSIDE RECORDS SUMMARY | 2024-12-07 11:25 | XMS_ITS | Clinical Summary ---
Author Organization [employer] Address [address] [facility] [address] [place] [address] Care Team Providers Care Servicing Manager Name Role Phone Unavailable Primary Care [...] patient's age to complete this topic Insurance [facility] LIMITED [facility] FULL
--- OUTSIDE RECORDS SUMMARY | 2024-12-07 11:25 | XMS_ITS | Clinical Summary ---
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 Surgical History Surgery Date Site/Laterality Comments OTHER SURGICAL HISTORY PROCEDURE: [place] LAPS GSTR RSTCV PX W/BYP KAYLAH-EN-Y LIMB <150 CM Medical History Medical History Date Comments Diabetes mellitus (CMS/[facility] V24, [facility] V28) DX:Diabetes mellitus (HCC) Hyperchloremia [...] AM EST Office Visit Bariatric Surgery - [place] [address] [facility] [address] [facility] [address] [place] [address] Lluvia Rosales MD [address] [place] [phone] Health Maintenance Due Date Last Done [...] Insurance [place] - [place] Care Teams Monogram Machine Operator Relationship Specialty Start Date End Date Juve Crawford MD [address] [place] [address] [address] EBONI Byers PCP - General Internal Medicine 10/13/20
== END 2024-12-07 09:46 | disposition home or self-care (01) ==
LOC: HO.HMGAL 09:39
PROVIDERS: PCP Internal Medicine; Visit Provider Registered Nurse Emergency
DX: J30.89 Other allergic rhinitis (principal)
CPT/HCPCS: 95117; 95165

== ENCOUNTER 2024-12-21 08:57 | Outpatient (AMB) | payer MEDICARE, MEDICAID, SELFPAY ==
--- OUTSIDE RECORDS SUMMARY | 2024-12-21 09:52 | XMS_ITS | Clinical Summary ---
Author Organization 175 [facility] Address 175 [place] [address] Phone Care Team Providers Care Retanned Leather Roller Name Role Phone Juve Crawford MD Primary [...] Problem Noted Date Diagnosed Date Diabetes mellitus ([facility] V24, [facility] V28) Pharyngoesophageal dysphagia 07/11/2020 Constipation 03/17/2019 Intestinal malabsorption following gastrectomy 1 05/05/2017 Surgical History Surgery Date Site/Laterality Comments OTHER SURGICAL HISTORY PROCEDURE: [place] LAPS GSTR RSTCV PX W/BYP KAYLAH-EN-Y LIMB <150 CM Medical History Medical History Date Comments Diabetes mellitus (CMS/[facility] V24, [facility] V28) DX:Diabetes mellitus (HCC) Hyperchloremia [...] EST Office Visit Bariatric Surgery - [place] [address] [place] [address] Lluvia Rosales MD [address] [place] [phone] Health Maintenance Due Date Last Done Comments Breast Cancer Screening 1976 Colorectal Cancer Screening: Colonoscopy 1976 Diabetes: Annual GFR (Glomerular Filtration Rate) 1976 Diabetes: Annual Foot Exam 1986 Diabetes: Annual Retina Eye Exam 1986 Hepatitis B Vaccines (1 of 3 - 19+ 3-dose series) 12/27/1995 Cervical Cancer Screening: Pap Smear 1997 Pneumococcal Vaccine: Pediatrics (0 to 5 Years) and At-Risk Patients (6 to 49 Years) (2 of 2 - PCV) 06/28/2011 06/27/2010 Cholesterol Screening (Lipid Panel) 02/24/2022 HIV Screening 02/24/2022 Hepatitis C Screening [...] 12/31/2032 12/31/2022, 01/11/2016, 06/27/2010, Additional history exists RSV Immunization Adult Patients (1 - 1-dose 75+ series) 12/27/2051 IPV [...] [place] Care Teams Retanned Leather Roller Relationship Specialty Start Date End Date Juve Crawford MD [address] [place] [address] [address] EBONI Byers PCP - General Internal Medicine 10/13/20
--- OUTSIDE RECORDS SUMMARY | 2024-12-21 09:52 | XMS_ITS | Clinical Summary ---
Author Organization [employer] Address [address] [facility] 7t [place] [address] Care Team Providers Care Family Development Specialist Name Role Phone Unavailable Primary Care Provider [...] topic Insurance [facility] LIMITED [facility] FULL
== END 2024-12-21 09:20 | disposition home or self-care (01) ==
LOC: HO.HMGAL 08:57
PROVIDERS: PCP Internal Medicine; Visit Provider Registered Nurse Emergency
DX: J30.89 Other allergic rhinitis (principal)
CPT/HCPCS: 95117; 95165

== ENCOUNTER 2025-01-04 09:12 | Outpatient (AMB) | payer MEDICARE, MEDICAID, SELFPAY ==
--- OUTSIDE RECORDS SUMMARY | 2025-01-04 10:22 | XMS_ITS | Clinical Summary ---
Author Organization [employer] Address 75 [facility] 7t [place] [address] Care Team Providers Care Cap Sizer Name Role Phone Unavailable Primary Care Provider [...] patient's age to complete this topic Insurance [facility] LIMITED [facility] FULL
--- OUTSIDE RECORDS SUMMARY | 2025-01-04 10:22 | XMS_ITS | Clinical Summary ---
Author Organization 175 [facility] Address [address] [place] [address] Phone Care Team Providers Care Ham Clerk Name Role Phone Juve Crawford MD Primary Care Provider [phone] Allergies Active Allergy Reactions Criticality Noted Date [...] Problem Noted Date Diagnosed Date Diabetes mellitus ([facility] V24, [facility] V28) Pharyngoesophageal dysphagia 07/11/2020 Constipation 03/17/2019 Intestinal malabsorption following gastrectomy 1 05/05/2017 Surgical History Surgery Date Site/Laterality Comments OTHER SURGICAL HISTORY PROCEDURE: [place] LAPS GSTR RSTCV PX W/BYP KAYLAH-EN-Y LIMB <150 CM Medical History Medical History Date Comments Diabetes mellitus (CMS/[facility] V24, [facility] V28) DX:Diabetes mellitus (HCC) Hyperchloremia DX:Hyperchloremi a [...] AM EST Office Visit Bariatric Surgery - [place] [address] [facility] [address] [place] [address] Lluvia Rosales MD [address] [place] [phone] Health Maintenance Due Date Last Done [...] [place] Care Teams Ham Clerk Relationship Specialty Start Date End Date Juve Crawford MD [address] [place] [address] [address] EBONI Byers PCP - General Internal Medicine 10/13/20
== END 2025-01-04 09:13 | disposition home or self-care (01) ==
LOC: HO.HMGAL 09:12
PROVIDERS: PCP Internal Medicine; Visit Provider Registered Nurse Emergency
DX: J30.89 Other allergic rhinitis (principal)
CPT/HCPCS: 95117; 95165

== ENCOUNTER 2025-01-18 09:05 | Outpatient (AMB) | payer MEDICARE, MEDICAID, SELFPAY ==
--- OUTSIDE RECORDS SUMMARY | 2025-01-18 10:03 | XMS_ITS | Clinical Summary ---
Author Organization [address] [facility] Address [address] [place] [address] Phone Care Team Providers Care Infrastructure Director Name Role Phone Juve Crawford MD Primary Care Provider [phone] Allergies Active Allergy Reactions Criticality Noted Date [...] Date Diagnosed Date Diabetes mellitus ([facility] V24, [facility] V28) Pharyngoesophageal dysphagia 07/11/2020 Constipation 03/17/2019 Intestinal malabsorption following gastrectomy 1 05/05/2017 Surgical History Surgery Date Site/Laterality Comments OTHER SURGICAL HISTORY PROCEDURE: [place] LAPS GSTR RSTCV PX W/BYP KAYLAH-EN-Y LIMB <150 CM Medical History Medical History Date Comments Diabetes mellitus (CMS/[facility] V24, [facility] V28) DX:Diabetes mellitus (HCC) Hyperchloremia DX:Hyperchloremi [...] AM EST Office Visit Bariatric Surgery - [place] [address] [facility] [address] [place] [address] Lluvia Rosales MD [address] [place] [phone] Health Maintenance Due Date Last Done [...] [place] Care Teams Infrastructure Director Relationship Specialty Start Date End Date Juve Crawford MD [address] [place] [address] [address] EBONI Byers PCP - General Internal Medicine 10/13/20
--- OUTSIDE RECORDS SUMMARY | 2025-01-18 10:03 | XMS_ITS | Clinical Summary ---
Author Organization [employer] Address 75 [facility] 7t [place] [address] Care Team Providers Care Adobe Ball Mixer Name Role Phone Unavailable Primary Care Provider [...] topic Insurance [facility] LIMITED [facility] FULL
== END 2025-01-18 09:06 | disposition home or self-care (01) ==
LOC: HO.HMGAL 09:05
PROVIDERS: PCP Internal Medicine; Visit Provider Registered Nurse Emergency
DX: J30.89 Other allergic rhinitis (principal)
CPT/HCPCS: 95117; 95165

== ENCOUNTER 2025-01-25 09:16 | Outpatient (AMB) | payer MEDICARE, MEDICAID, SELFPAY ==
--- OUTSIDE RECORDS SUMMARY | 2025-01-25 10:03 | XMS_ITS | Clinical Summary ---
Author Organization [employer] Address 75 [facility] 7t [place] [address] Care Team Providers Care Assistant Boiler Operator Name Role Phone Unavailable Primary Care Provider [...] patient's age to complete this topic Insurance [facility] LIMITED [facility] FULL
--- OUTSIDE RECORDS SUMMARY | 2025-01-25 10:03 | XMS_ITS | Clinical Summary ---
Author Organization 175 [facility] Address [address] [place] [address] Phone Care Team Providers Care Electric Wirer Name Role Phone Juve Crawford MD Primary Care Provider [phone] Allergies Active Allergy Reactions Criticality Noted Date [...] Problem Noted Date Diagnosed Date Diabetes mellitus ([facility] V24, [facility] V28) Pharyngoesophageal dysphagia 07/11/2020 Constipation 03/17/2019 Intestinal malabsorption following gastrectomy 1 05/05/2017 Surgical History Surgery Date Site/Laterality Comments OTHER SURGICAL HISTORY PROCEDURE: [place] LAPS GSTR RSTCV PX W/BYP KAYLAH-EN-Y LIMB <150 CM Medical History Medical History Date Comments Diabetes mellitus (CMS/[facility] V24, [facility] V28) DX:Diabetes mellitus (HCC) Hyperchloremia DX:Hyperchloremi a [...] AM EST Office Visit Bariatric Surgery - [place] [address] [facility] [address] [place] [address] Lluvia Rosales MD [address] [place] [phone] Health Maintenance Due Date Last Done [...] Insurance [place] Care Teams Electric Wirer Relationship Specialty Start Date End Date Juve Crawford MD [address] [place] [address] [address] EBONI Byers PCP - General Internal Medicine 10/13/20
== END 2025-01-25 09:16 | disposition home or self-care (01) ==
LOC: HO.HMGAL 09:16
PROVIDERS: PCP Internal Medicine; Visit Provider Registered Nurse Emergency
DX: J30.89 Other allergic rhinitis (principal)
CPT/HCPCS: 95117; 95165

== ENCOUNTER 2025-02-01 09:05 | Outpatient (AMB) | payer MEDICARE, MEDICAID, SELFPAY | END 2025-02-01 09:05 | disposition home or self-care (01) | LOC: HO.HMGAL 09:05 | PROVIDERS: PCP Internal Medicine; Visit Provider Registered Nurse Emergency | DX: J30.89 Other allergic rhinitis (principal) | CPT/HCPCS: 95117; 95165 ==

== ENCOUNTER 2025-02-08 09:12 | Outpatient (AMB) | payer MEDICARE, MEDICAID, SELFPAY ==
--- OUTSIDE RECORDS SUMMARY | 2025-02-08 10:12 | XMS_ITS | Clinical Summary ---
Author Organization [employer] Address 75 [facility] 7t [place] [address] Care Team Providers Care Collar Setter Name Role Phone Unavailable Primary Care Provider [...] patient's age to complete this topic Insurance [facility] LIMITED [facility] FULL
== END 2025-02-08 09:12 | disposition home or self-care (01) ==
LOC: HO.HMGAL 09:12
PROVIDERS: PCP Internal Medicine; Visit Provider Registered Nurse Emergency
DX: J30.89 Other allergic rhinitis (principal)
CPT/HCPCS: 95117; 95165

== ENCOUNTER 2025-02-15 09:37 | Outpatient (AMB) | payer MEDICARE, MEDICAID, SELFPAY ==
--- OUTSIDE RECORDS SUMMARY | 2025-02-15 11:24 | XMS_ITS | Clinical Summary ---
Author Organization [employer] Address [address] [facility] 7t [place] [address] Care Team Providers Care Hide And Skin Colerer Name Role Phone Unavailable Primary Care Provider [...] patient's age to complete this topic Insurance [facility] LIMITED [facility] FULL
--- OUTSIDE RECORDS SUMMARY | 2025-02-15 11:24 | XMS_ITS | Clinical Summary ---
Author Organization [address] [facility] Address 175 [place] [address] Phone Care Team Providers Care Production Control Planner Name Role Phone Juve Crawford MD Primary [...] Problem Noted Date Diagnosed Date Diabetes mellitus ([facility] V24, [facility] V28) Pharyngoesophageal dysphagia 07/11/2020 Constipation 03/17/2019 Intestinal malabsorption following gastrectomy 1 05/05/2017 Surgical History Surgery Date Site/Laterality Comments OTHER SURGICAL HISTORY PROCEDURE: [place] LAPS GSTR RSTCV PX W/BYP KAYLAH-EN-Y LIMB <150 CM Medical History Medical History Date Comments Diabetes mellitus (CMS/[facility] V24, [facility] V28) DX:Diabetes mellitus (HCC) [...] AM EST Office Visit Bariatric Surgery - [place] [address] [facility] [address] [facility] [address] [place] [address] Lluvia Rosales MD [address] [place] [phone] Health Maintenance Due Date Last Done [...] [place] Care Teams Production Control Planner Relationship Specialty Start Date End Date Juve Crawford MD [address] [place] [address] [address] EBONI Byers PCP - General Internal Medicine 10/13/20
== END 2025-02-15 09:37 | disposition home or self-care (01) ==
LOC: HO.HMGAL 09:37
PROVIDERS: PCP Internal Medicine; Visit Provider Registered Nurse Emergency
DX: J30.89 Other allergic rhinitis (principal)
CPT/HCPCS: 95117; 95165

== ENCOUNTER 2025-02-22 08:17 | Outpatient (AMB) | payer MEDICARE, MEDICAID, SELFPAY | END 2025-02-22 08:18 | disposition home or self-care (01) | LOC: HO.HMGAL 08:17 | PROVIDERS: PCP Internal Medicine; Visit Provider Registered Nurse Emergency | DX: J30.89 Other allergic rhinitis (principal) | CPT/HCPCS: 95117; 95165 ==

== ENCOUNTER 2025-03-01 07:40 | Outpatient (REF) | payer MEDICARE, MEDICAID, SELFPAY ==
--- OUTSIDE RECORDS SUMMARY | 2025-03-01 07:44 | XMS_ITS | Clinical Summary ---
Author Organization 175 [facility] Address 175 [place] [address] Phone Care Team Providers Care Weaver Wire Loom Name Role Phone Juve Crawford MD Primary Care Provider [phone] Allergies Active Allergy Reactions Criticality Noted Date [...] on file Sexual Orientation Not on file Last Filed Vital Signs [...] AM EST Office Visit Bariatric Surgery - [place] [address] [facility] [address] [place] [address] Lluvia Rosales MD [facility] [place] [address] Health Maintenance Due Date Last Done [...] [place] Care Teams Weaver Wire Loom Relationship Specialty Start Date End Date Juve Crawford MD [address] [facility] [address] EBONI Byers PCP - General Internal Medicine 10/13/20
[2025-03-01 07:55] LABS: MANUAL DIFF FLAG NO
[2025-03-01 08:25] LABS: Hematocrit 37.4 % (37.0-47.0); Hemoglobin 12.1 g/dl (12.0-16.0); Imm Gran Abs Auto 0.07 X10*3/uL (0.00-0.03); Imm Gran Pct Auto 0.7 % (0.0-0.4); Lymphocytes Absolute Auto 1.9 X10*3/uL (1.2-4.9); Mean Corpuscular HGB Conc 32.4 g/dl (31.0-35.0); Mean Corpuscular Hemoglobin 27.3 pg (27.0-33.0); Mean Corpuscular Volume 84.2 fL (80.0-98.0); NRBC Abs Auto 0.000 X10*3/uL (0.0-0.012); NRBC Pct Auto 0.0 /100WBC (0.0-0.2); Platelet Count 343 X10*3/uL (160-400); Red Blood Count 4.44 X10*6/uL (4.20-5.50); White Blood Count 9.7 X10*3/uL (4.8-10.8)
[2025-03-01 08:53] LABS: Appearance Urine Clear; Glucose Urine UA Negative (Negative); PH 5.5 (5.0-9.0); Specific Gravity - Urine 1.020 (1.005-1.025); UMIC TRIGGER UACC YES
[2025-03-01 09:08] LABS: Microalbum/Creatinine Ratio Ur 6.5 ug/mg cr (<30)
[2025-03-01 09:27] LABS: Alanine Aminotransferase 14 U/L (0-31); Albumin Level 4.2 g/dL (3.5-5.0); Alkaline Phosphatase 68 U/L (39-117); Anion Gap 11 (12-20); Aspartate Amino Transferase 26 U/L (5-31); Blood Urea Nitrogen 14 mg/dL (9-16); Calcium 9.3 mg/dL (8.4-10.2); Carbon Dioxide 22 mmol/L (22-29); Chloride 111 mmol/L (96-108); Cholesterol 126 mg/dL (<200); Estimated Glomerular Filt Rate > 60; HDL Cholesterol 53 mg/dL (>40); Potassium 4.0 mmol/L (3.3-5.1); Sodium 140 mmol/L (135-145); Total Protein 7.8 g/dL (6.5-8.0); Triglycerides 101 mg/dL (<150)
[2025-03-01 09:28] LABS: Free T4 (Free Thyroxine) 1.24 ng/dL (0.71-1.85); Thyroid Stimulating Hormone 1.18 uIU/mL (0.32-4.0)
[2025-03-01 09:50] LABS: Folate 8.1 ng/mL (> or = 4.0); Vitamin B12 251 pg/mL (200-900)
== END 2025-03-01 07:41 | disposition home or self-care (01) ==
LOC: HO.LAB 07:40
PROVIDERS: PCP Internal Medicine; Visit Provider Internal Medicine
DX: E11.9 Type 2 diabetes mellitus without complications (principal); E53.8 Deficiency of other specified B group vitamins; D64.9 Anemia, unspecified; E78.00 Pure hypercholesterolemia, unspecified; E03.9 Hypothyroidism, unspecified; E55.9 Vitamin D deficiency, unspecified; R30.0 Dysuria
CPT/HCPCS: 36415; 80053; 80061; 81001; 82043; 82306; 82570; 82607; 82746; 83036; 84439; 84443; 85025

== ENCOUNTER 2025-03-01 08:35 | Outpatient (AMB) | payer MEDICARE, MEDICAID, SELFPAY | END 2025-03-01 08:35 | disposition home or self-care (01) | LOC: HO.HMGAL 08:35 | PROVIDERS: PCP Internal Medicine; Visit Provider Registered Nurse Emergency | DX: J30.89 Other allergic rhinitis (principal) | CPT/HCPCS: 95117; 95165 ==

== ENCOUNTER 2025-03-03 09:27 | Outpatient (AMB) | payer MEDICARE, MEDICAID, SELFPAY ==
--- NOTE | 2025-03-03 09:30 | A.OFFVIS_ITS ---
Vital Signs 03/03/25 09:48 Height 5 ft Weight 192 lb 10.944 oz BMI 37.6 BP 128/61 Blood Pressure Location Rt brachial Position Sitting Pulse 70 Intake Visit Reasons: f/u Intake Note: Ton presents in follow up of GERD and CIC. CC: Patient reports occasional abd pain Hot Box Checker Required: No Allergies lisinopril (LISINOPRIL) Allergy (Severe, Verified 03/03/25 09:51) ANAPYHLAXIS, swelling metformin (METFORMIN) Allergy (Severe, Verified 03/03/25 09:51) ANAPHYLAXIS, diarrhea sumatriptan (From IMITREX) Allergy (Severe, Verified 03/03/25 09:51) ANAPHYLAXIS, sedation HPI HPI f/u: Details: Assessment & Plan (1) Gastroparesis: Code(s): K31.84 - Gastroparesis Category: Medical (2) GERD (gastroesophageal reflux disease): Code(s): K21.9 - Gastro-esophageal reflux disease without esophagitis Category: Medical Qualifiers: Esophagitis presence: without esophagitis Qualified Code(s): K21.9 - Gastro-esophageal reflux disease without esophagitis (3) Chronic idiopathic constipation: Code(s): K59.04 - Chronic idiopathic constipation Category: Medical Plan Citizen [place] #declines She is here today with a male family member who is supportive She continues on Dexilant, LInzess 290, bisacodyl, simethicone, reglan, Proctosol cream and dicyclomine with good control of all of her GI conditions. She had intermittent episodes of suprapubic cramping but these resolved well utilizing dicyclomine as needed. The hemorrhoid cream really helped with the rectal itching. She will be due for colonoscopy in 2025 and will need 2 day prep. ROV 6 mos. Medications: Refilled bisacodyl (Laxative (bisacodyl)) 5 - 10 mg (1 - 2 x 5 mg) PO BEDTIME 60 tabs 6RF for constipation K59.04 - Chronic idiopathic constipation dexlansoprazole 60 mg PO DAILY 90 caps 2RF hydrocortisone 2.5% (Proctosol HC) BE SURE TO INCLUDE RECTAL APPICATOR!! 1 appl MO BID 30 grams 6RF hemorrhoids K64.9 - Unspecified hemorrhoids linaclotide (Linzess) 290 mcg PO DAILY 30 caps 6RF 30 days K59.04 - Chronic idiopathic constipation simethicone after meals 180 mg PO QID 120 caps 6RF 30 days R14.0 - Abdominal distension (gaseous) dicyclomine 20 mg PO QID PRN 360 tabs 2RF for abdominal pain metoclopramide HCl (Reglan) 10 mg PO QIDACHS 120 tabs 6RF Nausea K31.84 - Gastroparesis Laboratory Tests 03/01/25 07:54 WBC 9.7 Hgb 12.1 Hct 37.4 Plt Count 343 Estimated GFR > 60 Total Bilirubin 0.3 AST 26 ALT 14 Alkaline Phosphatase 68 TSH 1.18 Free T4 1.24 TODAY'S VISIT She is due for screening colonoscopy In [facility] Medical History Pre-op examination Vulvovaginitis Vulvar abscess Lumbar degenerative disc disease Foreign body in throat Lumbar back pain with radiculopathy affecting right lower extremity Rhinitis ASCUS of cervix with negative high risk HPV Internal derangement of right knee Lumbar radicular pain Renal calculi Hypothyroidism (acquired) Anemia Vitamin D deficiency Pure hypercholesterolemia Obesity (BMI 30-39.9) Costochondritis Migraine Allergic rhinitis Diabetes mellitus Occipital neuralgia of left side Chronic pain syndrome Spondylosis of cervical spine without myelopathy Arthritis EKG abnormalities Anal fissure Gastroparesis Hepatomegaly MIO on CPAP Insomnia Anxiety Constipation GERD (gastroesophageal reflux disease) B12 deficiency Proteinuria Type 2 diabetes mellitus with other diabetic kidney complication Hypoglycemia after GI (gastrointestinal) surgery Surgical History H/O colonoscopy H/O gastric bypass History of tubal ligation Hx of lithotripsy History of umbilical hernia Hx of section History of esophagogastroduodenoscopy (EGD) Hx of bilateral breast reduction surgery Hx of cholecystectomy Family History Father Liver cancer Hypertension Diabetes mellitus CVD (cardiovascular disease) Liver failure Headache Mother Hypercholesterolemia Breast cancer Asthma Depression Headache Maternal Grandmother Diabetes mellitus Hypertension Paternal Grandmother Diabetes mellitus Hypertension Social History Household Members: Significant Other Housing: House Alcohol intake: never Patient Tobacco Use Status: Never used Tobacco e-Cigarette/Vaping Use: Never Used Second Hand Smoke Exposure: Yes service: No Current occupational status: disabled Cognitive needs: No Hearing needs: No Vision needs: Yes Female Reproductive History Menstrual Age of Menarche: 11 Physical Exam Vital Signs: Last Vital Signs Pulse 70 03/03/25 09:48 BP 128/61 03/03/25 09:48 BMI result Body Mass Index 37.6 Assessment & Plan Assessment & Plan (1) Pre-op examination: Code(s): Z01.818 - Encounter for other preprocedural examination Category: Medical (2) Chronic idiopathic constipation: Code(s): K59.04 - Chronic idiopathic constipation Category: Medical (3) Gastroparesis: Code(s): K31.84 - Gastroparesis Category: Medical (4) GERD (gastroesophageal reflux disease): Code(s): K21.9 - Gastro-esophageal reflux disease without esophagitis Category: Medical Qualifiers: Esophagitis presence: without esophagitis Qualified Code(s): K21.9 - Gastro-esophageal reflux disease without esophagitis (5) Dysphagia: Comment: Treated in the ER and seem to be mostly anxiety mediated but restarting her PPI is likely a good idea last EGD was in 2018 and was completely normal in terms of the esophagus and the stomach. Code(s): R13.10 - Dysphagia, unspecified Category: Medical Plan She continues on Dexilant, LInzess 290, bisacodyl, simethicone, reglan, Proctosol cream and dicyclomine She is agreeable to scheduling the colonoscopy. There are no prior problems with anesthesia or sedation. She has sleep apnea and denies any other respiratory or cardiac problems. There are no infectious disease problems. She had a prior scope in 2022 but was not sufficiently clear. Subjective Patient presents for follow-up regarding medication management and colonoscopy planning. Reports doing well on current regimen. Constipation is controlled with Linzess and dicyclomine relieves cramping. Denies significant nausea or vomiting . Eating well and swallowing without difficulty. Has sleep apnea. Denies asthma, cardiac disease, and any prior issues with anesthesia or sedation. Agrees to scheduling colonoscopy next year given extended booking timelines. Objective Assessment & Plan Constipation with abdominal cramping: Symptoms controlled on current regimen. - Continue current therapy. Renewed prescriptions for Dexilant, Linzess, bisacodyl, simethicone, metoclopramide (Reglan), Proctosedyl cream, and dicyclomine. Colorectal cancer screening: Due next year. - Order screening colonoscopy now with anticipated scheduling in April?May. Bowel preparation sent to pharmacy for pickup in advance. - I will be in touch with scheduling details. Follow-up - Return in 6 months. Orders: Referrals GI Procedure Notification Z01.818 - Encounter for other preprocedural examination Medications: New peg 3350-electrolytes 236-22.74-6.74 -5.86 gram (Golytely) until fecal effluent is clear; do not exceed a total volume of 2,000 mL 240 mL PO Q10M 4,000 mL 0RF 1 day Z12.11 - Encounter for screening for malignant neoplasm of colon bisacodyl (Dulcolax (bisacodyl)) 10 mg (2 x 5 mg) PO BEDTIME 4 tabs 0RF 2 days Refilled dicyclomine 20 mg PO QID PRN 360 tabs 2RF for abdominal pain linaclotide (Linzess) 290 mcg PO DAILY 30 caps 6RF 30 days K59.04 - Chronic idiopathic constipation simethicone after meals 180 mg PO QID 120 caps 6RF 30 days R14.0 - Abdominal distension (gaseous) metoclopramide HCl (Reglan) 10 mg PO QIDACHS 120 tabs 6RF Nausea K31.84 - Gastroparesis Coding Level of Care Code Est Pt Level 4 (00090) Diagnoses Pre-op examination Z01.818 Chronic idiopathic constipation K59.04 Gastroparesis K31.84 Gastroesophageal reflux disease without esophagitis K21.9 Esophagitis presence: without esophagitis Dysphagia R13.10 Time Spent (min) 34
[2025-03-03 09:48] VITALS: BP 128/61; PULSE 70; BMI 37.6
--- OUTSIDE RECORDS SUMMARY | 2025-03-03 10:50 | XMS_ITS | Clinical Summary ---
Author Organization 175 [facility] Address 175 [place] [address] Phone Care Team Providers Care Boat Oar Maker Name Role Phone Juve Crawford MD Primary [...] Date Site/Laterality Comments OTHER SURGICAL HISTORY PROCEDURE: [place] LAPS GSTR RSTCV PX W/BYP KAYLAH-EN-Y LIMB [...] AM EST Office Visit Bariatric Surgery - [place] [address] [facility] [address] [place] [address] Lluvia Rosales MD [facility][note 2] [place] [address] Health Maintenance Due Date Last Done Comments Breast Cancer Screening 1976 Colorectal Cancer Screening: Colonoscopy 1976 Diabetes: Annual GFR (Glomerular Filtration Rate) 1976 Drug Screen 1976 Non-Opioid Controlled Substance Agreement 1976 Diabetes: Annual Foot Exam 1986 Diabetes: [...] Insurance [place] Care Teams Boat Oar Maker Relationship Specialty Start Date End Date Juve Crawford MD [address] EBONI Byers PCP - General Internal Medicine 10/13/20
== END 2025-03-03 10:16 | disposition home or self-care (01) ==
LOC: HO.HGI 09:28
PROVIDERS: PCP Internal Medicine; Visit Provider Nurse Practitioner
DX: K59.04 Chronic idiopathic constipation (principal); K31.84 Gastroparesis; K21.9 Gastro-esophageal reflux disease without esophagitis; R13.10 Dysphagia, unspecified
CPT/HCPCS: 99214

== ENCOUNTER → 2025-03-03 09:27 | Outpatient (BNVA) | payer MEDICARE, MEDICAID, SELFPAY | PROVIDERS: PCP Internal Medicine; Visit Provider Nurse Practitioner | DX: Z01.818 Encounter for other preprocedural examination (principal); K59.04 Chronic idiopathic constipation; K31.84 Gastroparesis; K21.9 Gastro-esophageal reflux disease without esophagitis; R13.10 Dysphagia, unspecified | CPT/HCPCS: 99212 ==

== ENCOUNTER 2025-03-08 09:18 | Outpatient (AMB) | payer MEDICARE, MEDICAID, SELFPAY ==
--- OUTSIDE RECORDS SUMMARY | 2025-03-08 10:22 | XMS_ITS | Clinical Summary ---
Author Organization [employer] Address 75 [facility] 7t [place] [address] Care Team Providers Care Nursing Director Name Role Phone Unavailable Primary Care [...] complete this topic Insurance [facility] LIMITED [facility] FULL
--- OUTSIDE RECORDS SUMMARY | 2025-03-08 10:22 | XMS_ITS | Clinical Summary ---
Author Organization 175 [facility] Address 175 [place] [address] Phone Care Team Providers Care Manager Medicare Marketing Name Role Phone Juve Crawford MD Primary [...] Date Site/Laterality Comments OTHER SURGICAL HISTORY PROCEDURE: [place] L[place] GSTR RSTCV PX W/BYP KAYLAH-EN-Y LIMB [...] AM EST Office Visit Bariatric Surgery - [place] [address] [place] [address] Lluvia Rosales MD [facility] [place] [address] Health Maintenance Due Date Last [...] Insurance [place] Care Teams Manager Medicare Marketing Relationship Specialty Start Date End Date Juve Crawford MD [address] [facility] [address] EBONI Byers PCP - General Internal Medicine 10/13/20
== END 2025-03-08 09:21 | disposition home or self-care (01) ==
LOC: HO.HMGAL 09:18
PROVIDERS: PCP Internal Medicine; Visit Provider Registered Nurse Emergency
DX: J30.89 Other allergic rhinitis (principal)
CPT/HCPCS: 95117; 95165

== ENCOUNTER 2025-03-10 12:51 | Outpatient (AMB) | payer MEDICARE, MEDICAID, SELFPAY ==
[2025-03-10 12:54] VITALS: BP 116/68; PULSE 68; RESP 18; O2SAT 98; BMI 37.4
--- NOTE | 2025-03-10 12:54 | MHC.PC.OV ---
Vital Signs 03/10/25 12:54 Height 5 ft Weight 191 lb 8 oz BMI 37.4 BP 116/68 Blood Pressure Location Lt brachial Position Sitting Respiration 18 Pulse 68 Pulse Source Pulse Oximeter Temp Source Temporal Artery Scan Pulse Oximetry (%) 98 Oxygen Delivery Method Room Air Intake Visit Reasons: 3mth f/u Roll Panner Required: No Accompanied by: Self / Same As Patient Allergies lisinopril (LISINOPRIL) Allergy (Severe, Verified 03/10/25 13:24) ANAPYHLAXIS, swelling metformin (METFORMIN) Allergy (Severe, Verified 03/10/25 13:24) ANAPHYLAXIS, diarrhea sumatriptan (From IMITREX) Allergy (Severe, Verified 03/10/25 13:24) ANAPHYLAXIS, sedation Medication List - Last Reconciled 03/10/25 by Juve Crawford MD acarbose 100 mg PO TID alcohol swabs (Alcohol Pads) 1 pad topical TID 30 days alprazolam 1 mg PO TID PRN bisacodyl (Dulcolax (bisacodyl)) 10 mg (2 x 5 mg) PO BEDTIME 2 days blood sugar diagnostic (FreeStyle Lite Strips) test blood sugar once a day as instructed - frequent low blood sugar readings blood-glucose meter (FreeStyle Lite Meter kit) As directed once a day cetirizine 10 mg PO DAILY PRN 90 days clonidine HCl 0.1 mg PO DAILY cyanocobalamin (vitamin B-12) 500 mcg sublingual daily, saturday - saturday; 30 days dicyclomine 20 mg PO QID PRN fluticasone propionate 50 mcg/actuation 1 spray intranasal DAILY ibuprofen 800 mg PO TID PRN 30 days lancets (FreeStyle Lancets) test blood sugar once as instructed - frequent LOW blood sugar readings levothyroxine 75 mcg PO DAILY 90 days linaclotide (Linzess) 290 mcg PO DAILY 30 days melatonin 5 - 10 mg PO BEDTIME PRN metoclopramide HCl (Reglan) 10 mg PO QIDACHS oxybutynin chloride ER 10 mg PO DAILY peg 3350-electrolytes 236-22.74-6.74 -5.86 gram (Golytely) 240 mL PO Q10M 1 day pyridoxine (vitamin B6) 100 mg PO DAILY rosuvastatin 5 mg PO DAILY 90 days simethicone 180 mg PO QID 30 days topiramate 100 mg PO BEDTIME 90 days tramadol 1 tablet 1 to 2 times a day orally ONLY NEEDED for SEVERE PAIN; 30 days Tobacco use date assessed: 03/10/25 Dental Screening Dental Screen Date: 03/10/25 Did you have a dental visit in the last 12 months?: No Did you have a dental problem in the last 6 months where you did not have access to dental care?: No Was dental information given to patient?: No HPI 3mth f/u HPI Details Patient comes in today for her follow up visit States that she feels okay and that her chronic joint pains remain adequately controlled on her current Rx She denies any headaches or dizziness Denies any chest pains, no increased SOB No nausea/vomiting, no abdominal pain No change in bowel habits noted Needs a couple of her Rx refilled She had her follow up labs done last week - to discuss her results [facility] Medical History Pre-op examination Vulvovaginitis Vulvar abscess Lumbar degenerative disc disease Foreign body in throat Lumbar back pain with radiculopathy affecting right lower extremity Rhinitis ASCUS of cervix with negative high risk HPV Internal derangement of right knee Lumbar radicular pain Renal calculi Hypothyroidism (acquired) Anemia Vitamin D deficiency Pure hypercholesterolemia Obesity (BMI 30-39.9) Costochondritis Migraine Allergic rhinitis Diabetes mellitus Occipital neuralgia of left side Chronic pain syndrome Spondylosis of cervical spine without myelopathy Arthritis EKG abnormalities Anal fissure Gastroparesis Hepatomegaly MIO on CPAP Insomnia Anxiety Constipation GERD (gastroesophageal reflux disease) B12 deficiency Proteinuria Type 2 diabetes mellitus with other diabetic kidney complication Hypoglycemia after GI (gastrointestinal) surgery Surgical History H/O colonoscopy H/O gastric bypass History of tubal ligation Hx of lithotripsy History of umbilical hernia Hx of section History of esophagogastroduodenoscopy (EGD) Hx of bilateral breast reduction surgery Hx of cholecystectomy Family History Father Liver cancer Hypertension Diabetes mellitus CVD (cardiovascular disease) Liver failure Headache Mother Hypercholesterolemia Breast cancer Asthma Depression Headache Maternal Grandmother Diabetes mellitus Hypertension Paternal Grandmother Diabetes mellitus Hypertension Social History Household Members: Significant Other Housing: House Alcohol intake: never Patient Tobacco Use Status: Never used Tobacco e-Cigarette/Vaping Use: Never Used Second Hand Smoke Exposure: Yes service: No Current occupational status: disabled Cognitive needs: No Hearing needs: No Vision needs: Yes Female Reproductive History Menstrual Age of Menarche: 11 Questionnaire PHQ-9 Over the last 2 weeks, how often have you been bothered by any of the following problems? Depression Screening Interpretation: Negative Depression Screening Done: Yes Source: Developed by Drs. Arthur Duran, Amira Brownlee, Nikos Pelayo and colleagues, with an educational beatriz from [employer]. Thrive Questionnaire Date Thrive assessed: 03/10/25 I am a: Patient What is your living situation today?: I have a steady place to live Within the past 12 months, did the food you bought not last and you didn't have the money to get more?: Often true Within the past 12 months, did you worry whether your food would run out before you got money to buy more?: Often true Do you have trouble paying for medicines?: No Do you have trouble getting transportation to medical appointments?: No Do you have trouble paying your heating and electricity bill?: No Do you have trouble taking care of your child, family member or friend?: No Do you have trouble with day-to-day activities such as bathing, preparing meals, shopping, managing finances, etc.?: No Are you currently unemployed and looking for a job?: No Are you interested in more education?: No Currently or been in a relationship where the following occur: No concerns reported THRIVE Score: 2 SUSAN-7 AMB Questionnaire SUSAN-7 Date SUSAN - 7 assessed: 11/26/24 Source: Developed by Drs. Arthur Duran, Amira Brownlee, Nikos Pelayo and colleagues, with an educational beatriz from [employer]. Review of Systems Const Denies chills, Denies fatigue, Denies fever(s) and Denies headache(s) (controlled) ENT Denies dysphagia, Denies dizziness, Denies otalgia, Denies headache(s) (controlled), Reports neck pain, Denies odynophagia and Denies sore throat Card Denies chest pain, Denies lightheadedness, Denies palpitations and Denies dyspnea Resp Denies chest congestion, Denies cough and Denies dyspnea GI Denies abdominal pain, Reports constipation (chronic), Denies dysphagia, Denies diarrhea, Denies nausea, Denies odynophagia and Denies vomiting Denies difficulty voiding, Denies nocturia, Denies dysuria and Denies urinary urgency Musc Reports back pain (chronic), Reports arthralgias (right scapular area), Reports neck pain, Reports radiating pain into limb (down right leg and into the foot; into the right arm recently) and Denies tingling Skin/Breast Denies rash Neuro Denies dizziness, Denies headache(s) (controlled) and Denies tingling Endo Denies fatigue and Denies palpitations Physical exam (Primary Care) Vital Signs: Last Vital Signs Pulse 68 03/10/25 12:54 Resp 18 03/10/25 12:54 BP 116/68 03/10/25 12:54 Pulse Ox 98 03/10/25 12:54 Oxygen Delivery Method Room Air 03/10/25 12:54 BMI result Body Mass Index 37.4 Tobacco/Smoking Status: Tobacco use Status Tobacco use date assessed 03/10/25 03/10/25 12:59 Patient Tobacco Use Status Never used Tobacco 03/10/25 12:59 e-Cigarette/Vaping Use Never Used 03/10/25 12:59 Depression Screening Interpretation: Negative Thrive Assessment: Date of Thrive Assessment Date Thrive assessed 03/10/25 03/10/25 12:59 Currently or been in a relationship where the following occur: No concerns reported Const General: no acute distress and alert HENMT Ears: TM's normal bilaterally and EAC's normal Throat: Yes posterior oropharynx normal and Yes tonsils normal (no TP congestion noted) Neck Neck: Yes supple and No lymphadenopathy Thyroid: Thyroid normal Resp Auscultation: clear to auscultation bilaterally, no rales and no wheezes Cardio Rate: regular rate Rhythm: regular rhythm Heart sounds: no murmurs GI Palpation (GI): Soft to palpation and nontender Auscultation: normal bowel sounds General: Yes no CVA tenderness Back/Spine/Pelvis Back: no CVA tenderness Cervical Spine: Cervical spine tenderness Thoracic/Lumbar Spine: paraspinal muscle tenderness on the right in the upper lumbar, in the mid lumbar and in the lower lumbar and lumbar spinal tenderness Skin Rashes: no rashes Extrem General: Yes no clubbing, cyanosis or edema Right upper extremity: shoulder/upper arm Details: tenderness Location: of the scapula and normal ROM (but increased radicular symptoms when she raises her arm ); no swelling Results Reviewed Results Reviewed: Laboratory Tests 03/01/25 03/01/25 07:48 07:54 WBC 9.7 Hgb 12.1 Hct 37.4 Plt Count 343 Sodium 140 Potassium 4.0 Creatinine 0.80 Estimated GFR > 60 Fasting Glucose 98 Hemoglobin A1c % 5.6 Calcium 9.3 AST 26 ALT 14 Triglycerides 101 Cholesterol 126 LDL Cholesterol, Calc 53 HDL Cholesterol 53 Vitamin B12 251 25-OH Vitamin D Total 36.0 TSH 1.18 Free T4 1.24 Ur Specific [place] 1.020 Urine Protein Negative Urine Glucose (UA) Negative Urine Blood Small (1+) H Urine Nitrite Negative Ur Leukocyte Esterase Negative Microalb/Creat Ratio 6.5 Coding Level of Care Code Est Pt Level 4 (57184) Diagnoses Pure hypercholesterolemia E78.00 Hypothyroidism (acquired) E03.9 Type 2 diabetes mellitus without complication, without long-term current use of insulin E11.9 Diabetes mellitus type: type 2 Diabetes mellitus correction insulin use: without correction use Diabetes mellitus complication status: without complication Migraine without status migrainosus, not intractable, unspecified migraine type G43.909 Migraine type: unspecified Status migrainosus presence: without status migrainosus Intractability: not intractable Chronic idiopathic constipation K59.04 Gastroesophageal reflux disease without esophagitis K21.9 Esophagitis presence: without esophagitis Anemia, unspecified type D64.9 Anemia type: unspecified type B12 deficiency E53.8 Vitamin D deficiency E55.9 Allergic rhinitis, unspecified seasonality, unspecified trigger J30.9 Allergic rhinitis trigger: unspecified Allergic rhinitis seasonality: unspecified Degeneration of intervertebral disc of lumbar region with discogenic back pain M51.360 Disc-related pain type: discogenic back pain only Spondylosis of cervical spine without myelopathy M47.812 Insomnia, unspecified type G47.00 Insomnia type: unspecified Anxiety F41.9 Obesity (BMI 30-39.9) E66.9 Assessment & Plan Assessment & Plan (1) Pure hypercholesterolemia: Code(s): E78.00 - Pure hypercholesterolemia, unspecified Category: Medical Plan: Results of her labs done last week reviewed and discussed with patient Reinforced low cholesterol diet Continue Rosuvastatin 5 mg QD - Rx refilled Will recheck her labs and fasting lipids in 3 months for follow up (2) Hypothyroidism (acquired): Code(s): E03.9 - Hypothyroidism, unspecified Category: Medical Plan: Her TFTs remain normal on her recent labs and her free T4 level has gone back up into the middle of the normal range Continue Levothyroxine 75 mcg QD Will recheck her TFTs in 3 months for follow up (3) Diabetes mellitus: Code(s): E11.9 - Type 2 diabetes mellitus without complications Category: Medical Qualifiers: Diabetes mellitus type: type 2 Diabetes mellitus intermediate accountant insulin use: without correction use Diabetes mellitus complication status: without complication Qualified Code(s): E11.9 - Type 2 diabetes mellitus without complications Plan: Her HgbA1c remains normal at 5.6% on her labs done last week; was previously also at 5.6% a few months ago - goal is <6.5% Reinforced diabetic diet Continue Acarbose 100 mg TID Follow up with endocrinology as needed - she has reportedly been advised by endocrinology that since her diabetes has been very well controlled, she can just follow up with her PCP and see endocrinology only on an as-needed basis from now on (4) Migraine: Code(s): G43.909 - Migraine, unspecified, not intractable, without status migrainosus Category: Medical Qualifiers: Migraine type: unspecified Status migrainosus presence: without status migrainosus Intractability: not intractable Qualified Code(s): G43.909 - Migraine, unspecified, not intractable, without status migrainosus Plan: Better controlled - states that her migraine headaches have been stable on her current prophylactic Rx Reinforced avoidance of potential migraine triggers Continue Topiramate 100 mg Q HS for headache prophylaxis - Rx refilled Follow up with neurology as scheduled (5) Chronic idiopathic constipation: Code(s): K59.04 - Chronic idiopathic constipation Category: Medical Plan: Reinforced increased oral fluids and dietary fiber intake Continue Linzess 290 mcg QD S/P screening colonoscopy on 11/08/22 - recommend repeat colonoscopy in 2 to 3 years due to suboptimal prep Follow up with GI as scheduled (6) GERD (gastroesophageal reflux disease): Code(s): K21.9 - Gastro-esophageal reflux disease without esophagitis Category: Medical Qualifiers: Esophagitis presence: without esophagitis Qualified Code(s): K21.9 - Gastro-esophageal reflux disease without esophagitis Plan: Dietary restrictions reinforced Continue Omeprazole 40 mg QD Follow up with GI as scheduled (7) Anemia: Code(s): D64.9 - Anemia, unspecified Category: Medical Qualifiers: Anemia type: unspecified type Qualified Code(s): D64.9 - Anemia, unspecified Plan: Corrected - her H/H is now normal on her recent labs Continue Ferrous sulfate 325 mg QD and Vitamin B12 1000 mcg QD Will continue to monitor her CBC regularly (8) B12 deficiency: Code(s): E53.8 - Deficiency of other specified B group vitamins Category: Medical Plan: Continue Vitamin B12 tablets 1000 mcg QD (9) Vitamin D deficiency: Code(s): E55.9 - Vitamin D deficiency, unspecified Category: Medical Plan: Continue OTC Vitamin D supplements daily (10) Allergic rhinitis: Code(s): J30.9 - Allergic rhinitis, unspecified Category: Medical Qualifiers: Allergic rhinitis trigger: unspecified Allergic rhinitis seasonality: unspecified Qualified Code(s): J30.9 - Allergic rhinitis, unspecified Plan: Continue Fluticasone 50 mcg nasal spray QD PRN and Cetirizine 10 mg QD PRN (11) Lumbar degenerative disc disease: Code(s): M51.36 - Other intervertebral disc degeneration, lumbar region Category: Medical Qualifiers: Disc-related pain type: discogenic back pain only Qualified Code(s): M51.360 - Other intervertebral disc degeneration, lumbar region with discogenic back pain only Plan: Reinforced activity and weight-lifting restrictions to minimize aggravating her low back pain Repeat lumbar spine x-rays done in April 2021 revealed (+) chronic changes of lumbar spine DDD She was sent for lumbar spine MRI for further evaluation a couple of years ago but patient reportedly missed her appt and she has not rescheduled Continue Ibuprofen 800 mg TID with food PRN for pain and Tramadol 50 mg 1 to 2 times a day ONLY as needed for SEVERE pain (12) Spondylosis of cervical spine without myelopathy: Code(s): M47.812 - Spondylosis without myelopathy or radiculopathy, cervical region Category: Medical Plan: She was seen by pain management last year and they recommended physical therapy and other modalities to help with her neck pain; recommended NO opioids as they do not think patient's current symptoms warrant Tx with long-term opioids She has been reportedly advised to follow up with them only on an as needed basis (13) Insomnia: Code(s): G47.00 - Insomnia, unspecified Category: Medical Qualifiers: Insomnia type: unspecified Qualified Code(s): G47.00 - Insomnia, unspecified Plan: Sleep hygiene reinforced Continue Amitriptyline 25 mg Q HS (14) Anxiety: Code(s): F41.9 - Anxiety disorder, unspecified Category: Medical Plan: Continue Alprazolam 1 mg TID PRN Follow up with psychiatry as scheduled (15) Obesity (BMI 30-39.9): Code(s): E66.9 - Obesity, unspecified Category: Medical Plan: Reinforced diet/exercise as tolerated/lose weight Plan Follow up in 3 months Orders: Orders Lipid Panel 3 Months E78.00 - Pure hypercholesterolemia, unspecified Microalbumin, Random (w Creat) 3 Months E11.9 - Type 2 diabetes mellitus without complications Complete Blood Count Auto Diff 3 Months D64.9 - Anemia, unspecified Free T4 (Free Thyroxine) 3 Months E03.9 - Hypothyroidism, unspecified UA CC w/rflx Micro + Cult 3 Months R30.0 - Dysuria Vitamin D 25-OH Total 3 Months E55.9 - Vitamin D deficiency, unspecified Hemoglobin A1c 3 Months E11.9 - Type 2 diabetes mellitus without complications Comprehensive [place]. Panel Fast 3 Months E78.00 - Pure hypercholesterolemia, unspecified Thyroid Stimulating Hormone 3 Months E03.9 - Hypothyroidism, unspecified Vitamin B12 and Folate 3 Months E53.8 - Deficiency of other specified B group vitamins Medications: Refilled topiramate 100 mg PO BEDTIME 90 tabs 1RF 90 days G43.909 - Migraine, unspecified, not intractable, without status migrainosus rosuvastatin 5 mg PO DAILY 90 tabs 3RF 90 days E78.5 - Hyperlipidemia, unspecified
--- OUTSIDE RECORDS SUMMARY | 2025-03-10 12:54 | XMS_ITS | Clinical Summary ---
Author Organization [employer] Address [address] [facility] 7t [place] [address] Care Team Providers Care Carbon Capture Power Plant Engineer Name Role Phone Unavailable Primary Care Provider [...] patient's age to complete this topic Insurance [facility] FULL
--- OUTSIDE RECORDS SUMMARY | 2025-03-10 12:54 | XMS_ITS | Clinical Summary ---
Author Organization [facility] Address [address] [place] [address] Phone Care Team Providers Care Public Employment Mediator Name Role Phone Juve Crawford MD Primary Care Provider [phone] Allergies Active Allergy Reactions Criticality Noted Date [...] Date Site/Laterality Comments OTHER SURGICAL HISTORY PROCEDURE: [place] LAPS GSTR RSTCV PX W/BYP KAYLAH-EN-Y LIMB [...] AM EST Office Visit Bariatric Surgery - [place] [address] [place] [address] Lluvia Rosales MD [facility] [place] [address] Health Maintenance Due Date Last [...] Insurance MEDICAID - [place] MEDICARE Care Teams Public Employment Mediator Relationship Specialty Start Date End Date Juve Crawford MD [address] EBONI Byers PCP - General Internal Medicine 10/13/20
== END 2025-03-10 13:32 | disposition home or self-care (01) ==
LOC: HO.HMCH 12:52
PROVIDERS: PCP Internal Medicine; Visit Provider Internal Medicine
DX: E78.00 Pure hypercholesterolemia, unspecified (principal); E03.9 Hypothyroidism, unspecified; E11.9 Type 2 diabetes mellitus without complications; G43.909 Migraine, unspecified, not intractable, without status migrainosus; K59.04 Chronic idiopathic constipation; K21.9 Gastro-esophageal reflux disease without esophagitis; D64.9 Anemia, unspecified; E53.8 Deficiency of other specified B group vitamins; E55.9 Vitamin D deficiency, unspecified; J30.9 Allergic rhinitis, unspecified; M51.360 Other intervertebral disc degeneration, lumbar region with discogenic back pain only; M47.812 Spondylosis without myelopathy or radiculopathy, cervical region; G47.00 Insomnia, unspecified; F41.9 Anxiety disorder, unspecified; E66.9 Obesity, unspecified

== ENCOUNTER → 2025-03-10 12:51 | Outpatient (BNVA) | payer MEDICARE, MEDICAID, SELFPAY | PROVIDERS: PCP Internal Medicine; Visit Provider Internal Medicine | DX: E11.9 Type 2 diabetes mellitus without complications (principal); E03.9 Hypothyroidism, unspecified; E78.00 Pure hypercholesterolemia, unspecified; G43.909 Migraine, unspecified, not intractable, without status migrainosus; K59.04 Chronic idiopathic constipation; K21.9 Gastro-esophageal reflux disease without esophagitis; E53.8 Deficiency of other specified B group vitamins; E55.9 Vitamin D deficiency, unspecified; J30.9 Allergic rhinitis, unspecified; M51.360 Other intervertebral disc degeneration, lumbar region with discogenic back pain only; M47.812 Spondylosis without myelopathy or radiculopathy, cervical region; G47.00 Insomnia, unspecified; F41.9 Anxiety disorder, unspecified; E66.9 Obesity, unspecified; Z79.899 Other long term (current) drug therapy | CPT/HCPCS: 99212 ==